=== PATIENT | female | born 1960 | race Caucasian/White ===

== ENCOUNTER 2018-07-26 14:03 | Observation (INO) | payer OTHER, SELFPAY ==
[2018-07-26] VITALS (11 sets, daily range): BP systolic 92–134; BP diastolic 58–84; PULSE 66–95; RESP 12–19; TEMP 36.4–36.9; O2SAT 92–99; BMI 31.1; BMI 31.0
--- NOTE | 2018-07-26 15:08 | EKG12_ITS ---
Test Reason : CP Blood Pressure : / mmHG Vent. Rate : 080 BPM Atrial Rate : 080 BPM P-R Int : 120 ms QRS Dur : 080 ms QT Int : 356 ms P-R-T Axes : 042 023 027 degrees QTc Int : 410 ms Normal sinus rhythm with sinus arrhythmia Low voltage QRS (Limb Leads) Confirmed by WALT BANEGAS, EMILIANA ([id number]), assistant film editor GAGANDEEP RENTERIA ([id number]) on 07/29/2018 9:06:51 AM Referred By: Rickey Macario Confirmed By:EMILIANA GODOY MD
--- NOTE | 2018-07-26 15:08 | RAD_ITS ---
STUDY: X-RAY CHEST REASON FOR EXAM: Female, 58 years old. Mid chest pain. TECHNIQUE: PA and lateral views of the chest. COMPARISON: Comparison is made with prior examination dated November 01, 2016. FINDINGS: EKG electrodes are seen. Hyperinflation. No acute abnormality is seen. There is no demonstrated pleural abnormality. Normal size heart. Normal mediastinum and chris. Normal visualized pulmonary arteries. There is atherosclerotic tortuosity of the aortic arch and descending thoracic aorta. There are diffuse degenerative changes of the visualized thoracic spine. Normal visualized ribs, clavicles, and shoulders. There is no demonstrated abnormality of the visualized soft tissue structures of the upper abdomen. RAD/Chest PA and Lateral IMPRESSION: No acute abnormalities seen. Electronically Signed: Keny Branch, at 15:55 EDT , Service support ,
--- NOTE | 2018-07-26 15:10 | ED.VISSUMM ---
- ER Visit Summary Date of Service: 07/26/18 Chief Complaint: Chest pain History of Present Illness: The patient is a 58 F who presents for chest tightness and shortness of breath. Patient states yesterday she began feeling a scratchy feeling in her throat. Since this morning she has been feeling short of breath, worse with exertion, and now has chest tightness. Chest tightness is in the lower substernal/epigastric region with radiation to the back. No radiation to the sides of the chest, arms, abdomen or neck. Patient states her neck feels full with a mild sore throat in the lower neck. Patient has associated cough. She states she gets frequent bronchitis. She flew from the [place] in April and states she got sick with bronchitis afterward. Patient denies history of coronary artery disease, diabetes, hypertension, hypercholesterolemia, asthma, COPD, history of venous thromboembolism, or any exogenous hormone use. She has a history of kidney cancer and only has one remaining kidney. Patient is a smoker. Physical Examination: Vital signs: afebrile, hemodynamically stable, no hypoxia on room air General: well nourished, well developed, in no distress Skin: warm, dry, no rash, no pallor HEENT: normocephalic and atraumatic; PERRL, EOMI, moist mucous membranes Cardiovascular: regular rate and rhythm without murmurs, no peripheral edema, 2+ pulses all distal extremities Respiratory: No increased work of breathing, lungs are clear to auscultation bilaterally, mildly diminished globally Abdominal: Abdomen is soft, nontender with normoactive bowel sounds, no guarding or rebound, no masses MSK: Moves all extremities, no deformities, normal strength, no calf tenderness or asymmetry Neuro: Awake and alert, oriented ?4. No facial droop, sensation and motor function intact and symmetric Test Results: Abnormal Lab Results 07/26/18 07/26/18 07/26/18 14:20 14:20 14:20 WBC 10.6 RBC 4.81 Hgb 15.0 Hct 43.4 MCV 90.2 MCH 31.2 MCHC 34.6 RDW 12.9 RDW Differential 42.3 Plt Count 255 MPV 10.2 Immature Gran % (Auto) 0.200 Neut % (Auto) 64.8 Lymph % (Auto) 27.1 [place] % (Auto) 5.7 Eos % (Auto) 1.5 Baso % (Auto) 0.7 Absolute Neuts (auto) 6.9 Absolute Lymphs (auto) 2.86 Total Counted Not Reportable PT 13.2 INR 1.0 APTT 29.7 Sodium 140 Potassium 3.8 Chloride 109 H Carbon Dioxide 28.0 Anion Gap 3 L BUN 24 H Creatinine 1.00 Estim Creat Clear Calc 47.91 Est GFR (MDRD) Af Amer 73 Est GFR (MDRD) Non-Af 60 BUN/Creatinine Ratio 24.0 H Glucose 91 Calcium 8.5 Total Bilirubin 0.30 AST 16 ALT 22 Alkaline Phosphatase 81 Troponin I < 0.015 B-Natriuretic Peptide Total Protein 7.1 Albumin 3.2 Globulin 3.9 Albumin/Globulin Ratio 0.8 L Lipase 195 TSH 0.46 07/26/18 14:20 WBC RBC Hgb Hct MCV MCH MCHC RDW RDW Differential Plt Count MPV Immature Gran % (Auto) Neut % (Auto) Lymph % (Auto) [place] % (Auto) Eos % (Auto) Baso % (Auto) Absolute Neuts (auto) Absolute Lymphs (auto) Total Counted PT INR APTT Sodium Potassium Chloride Carbon Dioxide Anion Gap BUN Creatinine Estim Creat Clear Calc Est GFR (MDRD) Af Amer Est GFR (MDRD) Non-Af BUN/Creatinine Ratio Glucose Calcium Total Bilirubin AST ALT Alkaline Phosphatase Troponin I B-Natriuretic Peptide 14.6 Total Protein Albumin Globulin Albumin/Globulin Ratio Lipase TSH Clinical Impression(s) from Imaging Studies Chest X-Ray 07/26/18 15:08 IMPRESSION: No acute abnormalities seen. Electronically Signed: Keny Branch, at 15:55 EDT , Service support , Medications Given Discontinued Medications Albuterol/Ipratropium (Duoneb) 3 ml INHALATION X1 ONE Stop: 07/26/18 15:10 Last Admin: 07/26/18 15:17 Dose: 3 ml Aspirin (Aspirin, Baby) 324 mg PO X1 STA Stop: 07/26/18 15:09 Last Admin: 07/26/18 15:29 Dose: 324 mg Sodium Chloride () 1,000 mls @ 999 mls/hr IV .Q1H1M ONE Stop: 07/26/18 17:11 Last Admin: 07/26/18 17:01 Dose: 999 mls/hr Nitroglycerin (Nitrostat) 0.4 mg SUBLINGUAL X1 ONE Stop: 07/26/18 16:08 Last Admin: 07/26/18 17:09 Dose: 0.4 mg Emergency Department Course and Treatment: Patient presents for shortness of breath, worse on exertion, and chest tightness that started today. Chest pain work-up was initiated. Patient was given aspirin. She had no change in her chest tightness with one nitro. Her blood pressure was borderline low and thus no further nitro was given. Patient had no wheezing or adventitious sounds noted on exam, but did have mildly diminished lungs throughout, that she was given a DuoNeb. She had no change in her complaints afterwards. An EKG showed a sinus rhythm with no ischemic changes. Troponin negative. No leukocytosis or significant anemia. No electrolyte derangements. BNP was within normal limits. Thyroid function normal. Chest x-ray showed mild hyperinflation but no infiltrates or pulmonary edema. Patient has never had a cardiac work-up before, and because of her chest tightness and shortness of breath, she will be admitted to observation status for further chest pain work-up. Treatment Plan: [] Disposition: [] Impression: Chest tightness, shortness of breath This note was generated with [employer] dictation software. It may contain incorrect words, spelling, and punctuation that were not noted in review of the chart prior to signing ED Disposition - Plan for ED Patient: Referrals: Care Physician,No Primary [Primary Care Provider] -
[2018-07-26] MEDS: Ipratropium/Albuterol Sulfate 3 ML AMPUL.NEB INHALATION (15:17)
[2018-07-26] MEDS: Aspirin 81 MG TAB.CHEW 324 MG PO (15:29)
[2018-07-26 15:32] LABS: Prothrombin Time (Protime)PT. 13.2 SECONDS (11.7-14.9)
[2018-07-26 15:33] LABS: Partial Thromboplast Time 29.7 Seconds (24.1-36.2)
[2018-07-26 15:47] LABS: ALB/GLOB Ratio 0.8 RATIO (0.9-2.4); AST(SGOT) 16 U/L (15-37); Alanine Aminotransfer ALT/SGPT 22 U/L (13-56); Albumin, Serum 3.2 g/dL (3.2-5.0); Alkaline Phosphatase 81 U/L (45-117); Anion Gap 3 (5-15); BUN 24 mg/dL (7-18); Calcium,Total 8.5 mg/dL (8.5-10.1); Chloride 109 mmol/L (98-107); EST Glomerular Filtration Rate 60 mL/min (>60); Est Glom Filt Rate - Afr Amer 73 mL/min (>60); Estimated Creatinine Clearance 47.91 ml/min; Globulin 3.9 g/dL (2.2-4.2); Glucose 91 mg/dL (74-106); Lipase 195 U/L (73-393); Potassium 3.8 mmol/L (3.5-5.1); Protein, Total 7.1 g/dL (6.4-8.2); Sodium Level 140 mmol/L (136-145); Thyroid Stim Hormone (TSH) 0.46 uIU/mL (0.358-3.74)
[2018-07-26 16:00] LABS: Absolute Lymphocyte Count 2.86 X10^3/ul (0.83-4.51); Absolute Neutrophil Count 6.9 X10^3/uL (2.0-7.7); Basophil# 0.07 X10^3/uL; Basophil% 0.7 % (0-1); Eosinophil# 0.16 X10^3/uL; Eosinophils% 1.5 % (0-5); Hematocrit 43.4 % (37-47); Lymphocyte # 2.86 X10^3/ul (4.0); Lymphocyte % 27.1 % (19-41); Mean Corp Hgb Conc 34.6 g/gl (32-36); Mean Corpuscular Hgb 31.2 pg (27.0-32.0); Mean Corpuscular Volume 90.2 fL (81-99); Mean Platelet Vol. 10.2 fl (6.2-12.0); Monocyte% 5.7 % (0-10); Neutrophil # 6.86 X10^3/uL (2.7-7.7); Neutrophil % 64.8 % (47-70); Platelet Count 255 K/mm3 (150-450); RBC Distribution Width CV 12.9 % (11.6-14.6); RBC Distribution Width SD 42.3 fl (35.1-43.9); Red Blood Count 4.81 M/mm3 (4.2-5.4); White Blood Count 10.6 K/mm3 (4.4-11.0)
[2018-07-26 16:01] LABS: POSITIVE COUNT NO; POSITIVE DIFFERENTIAL NO; POSITIVE MORPHOLOGY NO
[2018-07-26 16:53] LABS: BNP,B-Type NATRIURETIC PEPTIDE 14.6 pg/mL (0-100)
[2018-07-26] MEDS: 0.9% Normal Saline 1,000 ML 999 ML IV (17:01)
--- NOTE | 2018-07-26 17:05 | ED.RN ---
ASKED DR. WILHELM IF SHE STILL WOULD LIKE THE NITRO GIVEN WITH PT'S BP 100/72. PER DR. WILHELM, OKAY TO GIVE.
--- NOTE | 2018-07-26 17:52 | NURSING ---
DR MAYO WILHELM
--- NOTE | 2018-07-26 17:57 | NURSING ---
102 MAYO OBS CP, SOB
[2018-07-26] MEDS: 0.9% Normal Saline 1,000 ML 75 ML IV (18:28)
[2018-07-26 19:03] LABS: Cholesterol 216 mg/dL (200); High Density Lipoprotein 49 mg/dL; Triglycerides 198 mg/dL; Very Low Density Lipoprotein 40 mg/dL (5-40)
--- NOTE | 2018-07-26 19:04 | PCM.HP.STD ---
Problem List (1) Chest pain Status: Acute (2) Tobacco abuse Status: Chronic (3) GERD (gastroesophageal reflux disease) Status: Chronic History of Present Illness Date of Admission: 07/26/18 Chief Complaint: Chest pain. The patient is a 58 year old F with past medical history as mentioned above presented to the emergency room because of chest pain. Her symptoms started today morning around 10 AM with chest pain, retrosternal chest pain, started when she was doing laundry, described as chest tightness, associated with shortness of breath and dizziness and without aggravating factors. She mentioned that yesterday, she had a choking episode when she was singing and she has been having dry hacking cough since then. She denied syncope or presyncope. She denied sweating, nausea or vomiting. She mentioned that her father had heart attack when he was in his mid 40s. In the emergency department, her vital signs were stable. Her routine blood work was unremarkable. LFT and lipase were normal. Her EKG revealed normal sinus rhythm without evidence of acute ischemic changes. First troponin was negative. Chest x-ray showed no acute findings. She is being admitted for chest pain for evaluation. Past Medical History Past Medical History (Chronic Problems): Chronic Problems Tobacco abuse (Chronic) GERD (gastroesophageal reflux disease) (Chronic) Allergies No Known Allergies Allergy (Verified 07/26/18 14:04) Home Medications: Ambulatory Orders Medication Instructions Recorded Albuterol Sulfate [Ventolin Hfa] 2 puff INHALATION Q4H PRN PRN 07/26/18 Benzonatate 100 mg PO TID PRN PRN 07/26/18 Surgical History: appendectomy, cholecystectomy, - - Left nephrectomy for renal cell cancer. 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 Paternal History Items: Cancer - Colon cancer., Heart Disease Review of Systems Constitutional: Denies: Anorexia, Chills, Fever, Weakness Eyes: Denies: Blurred vision, Double vision, Drainage, Redness HEENT: Denies: Difficulty Hearing, Ear Pain, Eye Pain, Nasal Congestion, Sore Throat Cardiovascular: Reports: Chest Pain, Chest Tightness, Light Headedness. Denies: Heaviness, Orthopnea, Palpitations, Paroxysmal Noc. Dyspnea, Syncope Respiratory: Reports: Cough, Shortness of Breath. Denies: Pleuritic Pain, Sputum production, Wheezing Gastrointestinal: Denies: Abdominal Pain, Constipation, Diarrhea, Nausea, Vomiting Genitourinary: Denies: Dysuria, Frequency, Hematuria Musculoskeletal: Denies: Arm Pain, Back Pain, Foot Pain Skin: Denies: Dryness, Rash Neurological: Denies: Balance problems, Double vision, Change in Speech, Slurred speech, Confusion, Headaches, Incoordination, Numbness Psychiatric: Denies: Anxiety, Depression Endocrine: Denies: Change in Body Habitus, Polydipsia VTE Information - Inpt Only VTE Present on Admission: No VTE Mechan Device Prophylaxis: None VTE Pharm Prophylaxis ordered?: No Patient Problems: Active and Suspected Problems Chest pain (Acute) - Physical Exam General: Alert, Oriented x3, Cooperative, No apparent distress HEENT: Atraumatic, PERRLA, EOMI Oral: Moist Mucosa, No Gingival or Mucosal Lesions/ Ulcerations Neck: Supple, No JVD, Negative Carotid Bruits, Trachea Midline, Thyroid Normal Size and Texture Lungs: Clear to auscultation, No rhonchi, No wheeze, No rales, Diminished Cardiovascular: Regular rate, Regular Rhythm, Normal S2, No murmurs, PMI Normal Abdomen: Bowel Sounds Present, Soft, Non Tender, Non-Distended, No Hepato-splenomegaly Extremities: No clubbing, No cyanosis, No edema Skin: No rashes, No breakdown Lymphatic: No Cervical, Supraclavicular, or Inguinal Adenopathy Neurological: Cranial nerves II-XII grossly intact, Motor Exam 5/5 strength throughout Psych/Mental Status: Normal Affect, Appropriate, Alert and oriented to time, place, person, mood and affect Vital Signs Temp Pulse Resp BP Pulse Ox 98.5 F 66 16 95/58 L 96 07/26/18 18:21 07/26/18 18:21 07/26/18 18:21 07/26/18 18:21 07/26/18 18:21 Oxygen Flow Rate (L/min) 2 Oxygen Delivery Method Room Air Weight: 169 lb 12.095 oz Body Mass Index (BMI) 31.0 Laboratory Tests Past 24 Hrs 07/26/18 07/26/18 07/26/18 14:20 14:20 14:20 WBC 10.6 RBC 4.81 Hgb 15.0 Hct 43.4 MCV 90.2 MCH 31.2 MCHC 34.6 RDW 12.9 RDW Differential 42.3 Plt Count 255 MPV 10.2 Immature Gran % (Auto) 0.200 Neut % (Auto) 64.8 Lymph % (Auto) 27.1 [place] % (Auto) 5.7 Eos % (Auto) 1.5 Baso % (Auto) 0.7 Absolute Neuts (auto) 6.9 Absolute Lymphs (auto) 2.86 Total Counted Not Reportable PT 13.2 INR 1.0 APTT 29.7 Sodium 140 Potassium 3.8 Chloride 109 H Carbon Dioxide 28.0 Anion Gap 3 L BUN 24 H Creatinine 1.00 Estim Creat Clear Calc 47.91 Est GFR (MDRD) Af Amer 73 Est GFR (MDRD) Non-Af 60 BUN/Creatinine Ratio 24.0 H Glucose 91 Calcium 8.5 Total Bilirubin 0.30 AST 16 ALT 22 Alkaline Phosphatase 81 Troponin I < 0.015 B-Natriuretic Peptide Total Protein 7.1 Albumin 3.2 Globulin 3.9 Albumin/Globulin Ratio 0.8 L Triglycerides Cholesterol LDL Cholesterol VLDL Cholesterol HDL Cholesterol Lipase 195 TSH 0.46 07/26/18 07/26/18 14:20 18:35 WBC RBC Hgb Hct MCV MCH MCHC RDW RDW Differential Plt Count MPV Immature Gran % (Auto) Neut % (Auto) Lymph % (Auto) [place] % (Auto) Eos % (Auto) Baso % (Auto) Absolute Neuts (auto) Absolute Lymphs (auto) Total Counted PT INR APTT Sodium Potassium Chloride Carbon Dioxide Anion Gap BUN Creatinine Estim Creat Clear Calc Est GFR (MDRD) Af Amer Est GFR (MDRD) Non-Af BUN/Creatinine Ratio Glucose Calcium Total Bilirubin AST ALT Alkaline Phosphatase Troponin I < 0.015 B-Natriuretic Peptide 14.6 Total Protein Albumin Globulin Albumin/Globulin Ratio Triglycerides 198 Cholesterol 216 H LDL Cholesterol 127 VLDL Cholesterol 40 HDL Cholesterol 49 Lipase TSH Clinical Impression(s) from Imaging Studies Chest X-Ray 07/26/18 15:08 IMPRESSION: No acute abnormalities seen. Electronically Signed: Keny Branch, at 15:55 EDT , Service support , Assessment/Plan All Active Problems Chest pain (Acute) This is a 58 years old female patient presented to the emergency room because of chest pain and she is being admitted for evaluation. #1 chest pain/shortness of breath: Risk factors are age, history of smoking and family history of premature CAD. Her father had first heart attack in his mid 40s. Initial EKG showed no acute ischemic changes. First troponin is negative. Chest x-ray without acute findings. Vital signs are stable. Routine blood work was unremarkable. Plan: Admit to PCU for observation, cardiac monitoring, serial enzymes, repeat EKG tomorrow morning, fasting lipid profile, start baby aspirin, Pepcid twice daily, TSH, nuclear stress test tomorrow morning if cardiac enzymes are negative. She may have undiagnosed COPD as she does have chronic cough. Patient may need lung function test as outpatient, will start albuterol nebulizer every 6 hours. #2 history of renal cell cancer: Status post left nephrectomy, stable, kidney function stable. #3 GERD: Start Pepcid twice daily. #4 tobacco abuse: Counseled, NicoDerm patch if requested. #5 DVT prophylaxis: Low risk patient, no prophylaxis indicated. This note was generated with [employer] dictation software. It may contain incorrect words, spelling, and punctuation that were not noted in checking the note before signing. Code Visit OBSV E&M: 24613 Initial observation care L3
--- NOTE | 2018-07-26 19:08 | HP.PCM_ITS ---
Problem List (1) Chest pain Status: Acute (2) Tobacco abuse Status: Chronic (3) GERD (gastroesophageal reflux disease) Status: Chronic History of Present Illness Date of Admission: 07/26/18 Chief Complaint: Chest pain. The patient is a 58 year old F with past medical history as mentioned above presented to the emergency room because of chest pain. Her symptoms started today morning around 10 AM with chest pain, retrosternal chest pain, started when she was doing laundry, described as chest tightness, associated with shortness of breath and dizziness and without aggravating factors. She mentioned that yesterday, she had a choking episode when she was singing and she has been having dry hacking cough since then. She denied syncope or presyncope. She denied sweating, nausea or vomiting. She mentioned that her father had heart attack when he was in his mid 40s. In the emergency department, her vital signs were stable. Her routine blood work was unremarkable. LFT and lipase were normal. Her EKG revealed normal sinus rhythm without evidence of acute ischemic changes. First troponin was negative. Chest x-ray showed no acute findings. She is being admitted for chest pain for evaluation. Past Medical History Past Medical History (Chronic Problems): Chronic Problems Tobacco abuse (Chronic) GERD (gastroesophageal reflux disease) (Chronic) Allergies No Known Allergies Allergy (Verified 07/26/18 14:04) Home Medications: Ambulatory Orders Medication Instructions Recorded Albuterol Sulfate [Ventolin Hfa] 2 puff INHALATION Q4H PRN PRN 07/26/18 Benzonatate 100 mg PO TID PRN PRN 07/26/18 Surgical History: appendectomy, cholecystectomy, - - Left nephrectomy for renal cell cancer. 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 Paternal History Items: Cancer - Colon cancer., Heart Disease Review of Systems Constitutional: Denies: Anorexia, Chills, Fever, Weakness Eyes: Denies: Blurred vision, Double vision, Drainage, Redness HEENT: Denies: Difficulty Hearing, Ear Pain, Eye Pain, Nasal Congestion, Sore Throat Cardiovascular: Reports: Chest Pain, Chest Tightness, Light Headedness. Denies: Heaviness, Orthopnea, Palpitations, Paroxysmal Noc. Dyspnea, Syncope Respiratory: Reports: Cough, Shortness of Breath. Denies: Pleuritic Pain, Sputum production, Wheezing Gastrointestinal: Denies: Abdominal Pain, Constipation, Diarrhea, Nausea, Vomiting Genitourinary: Denies: Dysuria, Frequency, Hematuria Musculoskeletal: Denies: Arm Pain, Back Pain, Foot Pain Skin: Denies: Dryness, Rash Neurological: Denies: Balance problems, Double vision, Change in Speech, Slurred speech, Confusion, Headaches, Incoordination, Numbness Psychiatric: Denies: Anxiety, Depression Endocrine: Denies: Change in Body Habitus, Polydipsia VTE Information - Inpt Only VTE Present on Admission: No VTE Mechan Device Prophylaxis: None VTE Pharm Prophylaxis ordered?: No Patient Problems: Active and Suspected Problems Chest pain (Acute) - Physical Exam General: Alert, Oriented x3, Cooperative, No apparent distress HEENT: Atraumatic, PERRLA, EOMI Oral: Moist Mucosa, No Gingival or Mucosal Lesions/ Ulcerations Neck: Supple, No JVD, Negative Carotid Bruits, Trachea Midline, Thyroid Normal Size and Texture Lungs: Clear to auscultation, No rhonchi, No wheeze, No rales, Diminished Cardiovascular: Regular rate, Regular Rhythm, Normal S2, No murmurs, PMI Normal Abdomen: Bowel Sounds Present, Soft, Non Tender, Non-Distended, No Hepato- splenomegaly Extremities: No clubbing, No cyanosis, No edema Skin: No rashes, No breakdown Lymphatic: No Cervical, Supraclavicular, or Inguinal Adenopathy Neurological: Cranial nerves II-XII grossly intact, Motor Exam 5/5 strength throughout Psych/Mental Status: Normal Affect, Appropriate, Alert and oriented to time, place, person, mood and affect Vital Signs Temp Pulse Resp BP Pulse Ox 98.5 F 66 16 95/58 L 96 07/26/18 18:21 07/26/18 18:21 07/26/18 18:21 07/26/18 18:21 07/26/18 18:21 Oxygen Flow Rate (L/min) 2 Oxygen Delivery Method Room Air Weight: 169 lb 12.095 oz Body Mass Index (BMI) 31.0 Laboratory Tests Past 24 Hrs 07/26/18 07/26/18 07/26/18 14:20 14:20 14:20 WBC 10.6 RBC 4.81 Hgb 15.0 Hct 43.4 MCV 90.2 MCH 31.2 MCHC 34.6 RDW 12.9 RDW Differential 42.3 Plt Count 255 MPV 10.2 Immature Gran % (Auto) 0.200 Neut % (Auto) 64.8 Lymph % (Auto) 27.1 [place] % (Auto) 5.7 Eos % (Auto) 1.5 Baso % (Auto) 0.7 Absolute Neuts (auto) 6.9 Absolute Lymphs (auto) 2.86 Total Counted Not Reportable PT 13.2 INR 1.0 APTT 29.7 Sodium 140 Potassium 3.8 Chloride 109 H Carbon Dioxide 28.0 Anion Gap 3 L BUN 24 H Creatinine 1.00 Estim Creat Clear Calc 47.91 Est GFR (MDRD) Af Amer 73 Est GFR (MDRD) Non-Af 60 BUN/Creatinine Ratio 24.0 H Glucose 91 Calcium 8.5 Total Bilirubin 0.30 AST 16 ALT 22 Alkaline Phosphatase 81 Troponin I < 0.015 B-Natriuretic Peptide Total Protein 7.1 Albumin 3.2 Globulin 3.9 Albumin/Globulin Ratio 0.8 L Triglycerides Cholesterol LDL Cholesterol VLDL Cholesterol HDL Cholesterol Lipase 195 TSH 0.46 07/26/18 07/26/18 14:20 18:35 WBC RBC Hgb Hct MCV MCH MCHC RDW RDW Differential Plt Count MPV Immature Gran % (Auto) Neut % (Auto) Lymph % (Auto) [place] % (Auto) Eos % (Auto) Baso % (Auto) Absolute Neuts (auto) Absolute Lymphs (auto) Total Counted PT INR APTT Sodium Potassium Chloride Carbon Dioxide Anion Gap BUN Creatinine Estim Creat Clear Calc Est GFR (MDRD) Af Amer Est GFR (MDRD) Non-Af BUN/Creatinine Ratio Glucose Calcium Total Bilirubin AST ALT Alkaline Phosphatase Troponin I < 0.015 B-Natriuretic Peptide 14.6 Total Protein Albumin Globulin Albumin/Globulin Ratio Triglycerides 198 Cholesterol 216 H LDL Cholesterol 127 VLDL Cholesterol 40 HDL Cholesterol 49 Lipase TSH Clinical Impression(s) from Imaging Studies Chest X-Ray 07/26/18 15:08 IMPRESSION: No acute abnormalities seen. Electronically Signed: Keny Branch, at 15:55 EDT , Service support , Assessment/Plan All Active Problems Chest pain (Acute) This is a 58 years old female patient presented to the emergency room because of chest pain and she is being admitted for evaluation. #1 chest pain/shortness of breath: Risk factors are age, history of smoking and family history of premature CAD. Her father had first heart attack in his mid 40s. Initial EKG showed no acute ischemic changes. First troponin is negative. Chest x-ray without acute findings. Vital signs are stable. Routine blood work was unremarkable. Plan: Admit to PCU for observation, cardiac monitoring, serial enzymes, repeat EKG tomorrow morning, fasting lipid profile, start baby aspirin, Pepcid twice daily, TSH, nuclear stress test tomorrow morning if cardiac enzymes are negative. She may have undiagnosed COPD as she does have chronic cough. Patient may need lung function test as outpatient, will start al buterol nebulizer every 6 hours. #2 history of renal cell cancer: Status post left nephrectomy, stable, kidney function stable. #3 GERD: Start Pepcid twice daily. #4 tobacco abuse: Counseled, NicoDerm patch if requested. #5 DVT prophylaxis: Low risk patient, no prophylaxis indicated. This note was generated with [employer] dictation software. It may contain incorrect words, spelling, and punctuation that were not noted in checking the note before signing. Code Visit OBSV E&M: 81530 Initial observation care L3
[2018-07-26] MEDS: Famotidine 20 MG Tablet PO (21:35)
[2018-07-27 03:46] VITALS: BP 97/57; PULSE 73; RESP 16; TEMP 36.7; O2SAT 96
[2018-07-27 03:53] VITALS: PULSE 64
[2018-07-27 05:40] LABS: Hematocrit 42.6 % (37-47); Mean Corp Hgb Conc 32.9 g/gl (32-36); Mean Corpuscular Hgb 29.9 pg (27.0-32.0); Mean Corpuscular Volume 90.8 fL (81-99); Mean Platelet Vol. 9.8 fl (6.2-12.0); Platelet Count 218 K/mm3 (150-450); RBC Distribution Width CV 13.4 % (11.6-14.6); Red Blood Count 4.69 M/mm3 (4.2-5.4); White Blood Count 8.9 K/mm3 (4.4-11.0)
[2018-07-27 05:43] LABS: Scan Indicated on CBC? Y/N NO
[2018-07-27 05:44] LABS: International Normalized Ratio 1.1; Partial Thromboplast Time 29.8 Seconds (24.1-36.2); Prothrombin Time (Protime)PT. 13.7 SECONDS (11.7-14.9)
--- NOTE | 2018-07-27 05:55 | EKG12_ITS ---
Test Reason : AM Blood Pressure : / mmHG Vent. Rate : 072 BPM Atrial Rate : 072 BPM P-R Int : 126 ms QRS Dur : 076 ms QT Int : 382 ms P-R-T Axes : 032 060 037 degrees QTc Int : 418 ms Normal sinus rhythm Normal ECG When compared with ECG of 26-JUL-2018 14:12, MANUAL COMPARISON REQUIRED, DATA IS UNCONFIRMED Confirmed by HONG BARNHART ([id number]), field map editor TUSHAR AWAN ([id number]) on 08/02/2018 2:25:28 PM Referred By: Rickey Macario Confirmed By:JELENA BARNHART
[2018-07-27 05:59] LABS: Anion Gap 4 (5-15); BUN 19 mg/dL (7-18); BUN/Creat Ratio 23.1 RATIO (10-20); Calcium,Total 7.9 mg/dL (8.5-10.1); Chloride 117 mmol/L (98-107); Creatinine, Serum 0.82 mg/dL (0.55-1.02); EST Glomerular Filtration Rate 76 mL/min (>60); Est Glom Filt Rate - Afr Amer 92 mL/min (>60); Estimated Creatinine Clearance 58.42 ml/min; Glucose 100 mg/dL (74-106); Potassium 4.1 mmol/L (3.5-5.1); Sodium Level 146 mmol/L (136-145)
--- NOTE | 2018-07-27 06:55 | NURSING ---
PT TAKEN T STRESS TEST
[2018-07-27 08:25] VITALS: BP 106/64; PULSE 71; RESP 14; TEMP 36.4; O2SAT 97
[2018-07-27] MEDS: Famotidine 20 MG Tablet PO (08:28)
--- NOTE | 2018-07-27 08:36 | STRESSREP_ITS ---
Stress Test Report Date: 07-27-18 Procedure: Exercise tolerance test/imaging study Indications: Chest pain; shortness of breath/dyspnea; dizziness Consent: Per the patient Procedure: The patient exercised on a Patel protocol for 8 minutes and 30 seconds completing Stage II and 2 minutes and 30 seconds of Stage III achieving a peak heart rate of 134 bpm (83 % predicted maximal heart rate) with a peak blood pressure 118/60 mmHg and a peak MET capacity of 10 METs. The baseline ECG demonstrated normal sinus rhythm. The peak exercise ECG demonstrated no obvious ECG changes. There were no cardiac dysrhythmias pretest, during exercise, or recovery. The functional capacity was considered good. There was chest pain pretest, during exercise, and recovery. The examination was discontinued secondary to leg discomfort. Impression: 1. Technically adequate (percent predicted maximal heart rate greater than 85%) exercise tolerance test 2. Peak exercise ECG with no obvious ECG changes 3. There were no cardiac dysrhythmias pretest, during exercise, or recovery 4. Nuclear images pending Myocardial perfusion imaging study: Technique: The patient was injected with 11.9 mCi of technetium 99m Cardiolite and subsequently rest SPECT Cardiolite nuclear imaging was obtained in the horizontal long, vertical long, and short axis views. The patient exercised on a Patel protocol for 8 minutes and 30 seconds completing Stage II and 2 minutes and 30 seconds of Stage III achieving a peak heart rate of 134 bpm (83 % predicted maximal heart rate) with a peak blood pressure 118/60 mmHg and a peak MET capacity of 10 METs. The patient was injected with 33.3 mCi of technetium 99m Cardiolite and subsequently stress SPECT Cardiolite nuclear imaging was obtained in the horizontal long, vertical long, and short axis views. A gated Cardiolite study at peak stress was obtained. Interpretation: Rest and stress SPECT Cardiolite nuclear imaging status post realignment, normalization, and attenuation correction, demonstrates the appearance of relative uniform tracer uptake and myocardial perfusion appearing within normal limits. There is end systolic thickening and brightening. The gated Cardiolite study demonstrates myocardial thickening and inward wall motion. The reported LVEF is 74 %. Impression: 1. Rest and stress SPECT Cardiolite nuclear imaging demonstrate relative uniform tracer uptake and myocardial perfusion appearing within normal limits. 2. The gated Cardiolite study reports an LVEF of 74 %. This note was generated with [employer] software. It may contain incorrect words, spelling, and punctuation that were not noted in checking the note before signing.
--- NOTE | 2018-07-27 10:18 | DCINST_ITS ---
- Discharge Diagnoses Current Active Problems: Current Active and Chronic Problems Chest pain (Acute) Tobacco abuse (Chronic) You will use the following diet at home:: No restrictions Discharge Activity: Return to Normal Activity Call your doctor if you observe: Shortness of breath, Dizziness, Fainting spells, Chest pain Allergies/Adverse Reactions: Allergies No Known Allergies Allergy (Verified 07/26/18 14:04) Medications to take at Discharge Albuterol Sulfate [Ventolin Hfa] 2 puff INHALATION Q4H PRN PRN 07/26/18 Benzonatate 100 mg PO TID PRN PRN 07/26/18 Primary Care Physician: Care Physician,No Primary [Primary Care Provider] - Please follow up with your Primary Care Physician in: 1 Week Test Results: Test results from this visit will be discussed in further detail at your follow- up appointment, if applicable. Proposed Discharge Date: 07/27/18
--- NOTE | 2018-07-27 10:22 | DS.PCM_ITS ---
<Natalie Jean Baptiste - Last Filed: 07/27/18 10:27> Discharge Date and Diagnosis Date of Admission: 07/26/18 Date of Discharge: 07/27/18 - Primary Discharge Diagnosis Active and Suspected Problems 1. Chest pain, ACS ruled out 2. Presumed Viral URI with bronchospasm 3. History of renal cell carcinoma status post nephrectomy 4. GERD 5. Tobacco dependence - Secondary Discharge Diagnosis Chronic Problems Tobacco abuse (Chronic) GERD (gastroesophageal reflux disease) (Chronic) Hospital Course and Treatment Imaging Results: Diagnostic Data Chest X-Ray 07/26/18 15:08 IMPRESSION: No acute abnormalities seen. Electronically Signed: Keny Paradisehazelmelonie, at 15:55 EDT , Service support , Operations: None Procedures: Stress test Summary of Care Provided: The patient is a 58 year old F admitted 07/26/2017 due to chest pain. 1. Chest pain, ACS ruled out-troponin negative. EKG without ST-T changes. Patient underwent nuclear stress test which was negative for ischemia. Follow- up with primary care physician in 1 week. Lipid panel mildly elevated. Recommend diet modification and repeat lipid panel by primary care provider. 2. Presumed Viral URI with bronchospasm-patient with recent sore throat followed by cough. Recommended if symptoms continue for 7 to 10 days, follow-up with primary care provider. 3. History of renal cell carcinoma status post nephrectomy 4. GERD-if recurrent symptoms, recommend addition of PPI. 5. Tobacco dependence-encourage smoking cessation. General: Alert, Oriented x3, Cooperative, No apparent distress HEENT: Atraumatic, PERRLA, EOMI Oral: Moist Mucosa, No Gingival or Mucosal Lesions/ Ulcerations Neck: Supple, No JVD, Negative Carotid Bruits, Trachea Midline, Lungs: Clear to auscultation, Diminished Cardiovascular: Regular rate, Regular Rhythm, Normal S2, No murmurs Abdomen: Bowel Sounds Present, Soft, Non Tender, Non-Distended, No Hepato- splenomegaly Extremities: No clubbing, No cyanosis, No edema Skin: No rashes, No breakdown Lymphatic: No Cervical, Supraclavicular, or Inguinal Adenopathy Neurological: Cranial nerves II-XII grossly intact, Motor Exam 5/5 strength throughout Psych/Mental Status: Normal Affect, Appropriate Patient seen and examined prior to discharge. Physical assessment as noted above. Patient is stable for discharge with follow up recommendations as noted above. This patient was seen by MARILYN Wynn under the supervision of Dr. Fernández. - Physical Exam Vital Signs Temp Pulse Resp BP Pulse Ox 97.6 F L 71 14 106/64 97 07/27/18 08:25 07/27/18 08:25 07/27/18 08:25 07/27/18 08:25 07/27/18 08:25 Oxygen Flow Rate (L/min) 2 Oxygen Delivery Method Room Air Weight: 169 lb 12.095 oz Body Mass Index (BMI) 31.0 Intake and Output for Last 24 Hours 07/25/18 07/26/18 07/27/18 23:59 23:59 23:59 Intake Total 1232 / 1232 Balance 1232 / 1232 Laboratory Tests Past 24 Hrs 07/26/18 07/26/18 07/26/18 14:20 14:20 14:20 WBC 10.6 RBC 4.81 Hgb 15.0 Hct 43.4 MCV 90.2 MCH 31.2 MCHC 34.6 RDW 12.9 RDW Differential 42.3 Plt Count 255 MPV 10.2 Immature Gran % (Auto) 0.200 Neut % (Auto) 64.8 Lymph % (Auto) 27.1 [place] % (Auto) 5.7 Eos % (Auto) 1.5 Baso % (Auto) 0.7 Absolute Neuts (auto) 6.9 Absolute Lymphs (auto) 2.86 Total Counted Not Reportable PT 13.2 INR 1.0 APTT 29.7 Sodium 140 Potassium 3.8 Chloride 109 H Carbon Dioxide 28.0 Anion Gap 3 L BUN 24 H Creatinine 1.00 Estim Creat Clear Calc 47.91 Est GFR (MDRD) Af Amer 73 Est GFR (MDRD) Non-Af 60 BUN/Creatinine Ratio 24.0 H Glucose 91 Calcium 8.5 Total Bilirubin 0.30 AST 16 ALT 22 Alkaline Phosphatase 81 Troponin I < 0.015 B-Natriuretic Peptide Total Protein 7.1 Albumin 3.2 Globulin 3.9 Albumin/Globulin Ratio 0.8 L Triglycerides Cholesterol LDL Cholesterol VLDL Cholesterol HDL Cholesterol Lipase 195 TSH 0.46 07/26/18 07/26/18 07/26/18 14:20 18:35 21:10 WBC RBC Hgb Hct MCV MCH MCHC RDW RDW Differential Plt Count MPV Immature Gran % (Auto) Neut % (Auto) Lymph % (Auto) [place] % (Auto) Eos % (Auto) Baso % (Auto) Absolute Neuts (auto) Absolute Lymphs (auto) Total Counted PT INR APTT Sodium Potassium Chloride Carbon Dioxide Anion Gap BUN Creatinine Estim Creat Clear Calc Est GFR (MDRD) Af Amer Est GFR (MDRD) Non-Af BUN/Creatinine Ratio Glucose Calcium Total Bilirubin AST ALT Alkaline Phosphatase Troponin I < 0.015 < 0.015 B-Natriuretic Peptide 14.6 Total Protein Albumin Globulin Albumin/Globulin Ratio Triglycerides 198 Cholesterol 216 H LDL Cholesterol 127 VLDL Cholesterol 40 HDL Cholesterol 49 Lipase TSH 07/27/18 07/27/18 07/27/18 05:15 05:15 05:15 WBC 8.9 RBC 4.69 Hgb 14.0 Hct 42.6 MCV 90.8 MCH 29.9 MCHC 32.9 RDW 13.4 RDW Differential 44.0 H Plt Count 218 MPV 9.8 Immature Gran % (Auto) Neut % (Auto) Lymph % (Auto) [place] % (Auto) Eos % (Auto) Baso % (Auto) Absolute Neuts (auto) Absolute Lymphs (auto) Total Counted PT 13.7 INR 1.1 APTT 29.8 Sodium 146 H Potassium 4.1 Chloride 117 H Carbon Dioxide 25.0 Anion Gap 4 L BUN 19 H Creatinine 0.82 Estim Creat Clear Calc 58.42 Est GFR (MDRD) Af Amer 92 Est GFR (MDRD) Non-Af 76 BUN/Creatinine Ratio 23.1 H Glucose 100 Calcium 7.9 L Total Bilirubin AST ALT Alkaline Phosphatase Troponin I B-Natriuretic Peptide Total Protein Albumin Globulin Albumin/Globulin Ratio Triglycerides Cholesterol LDL Cholesterol VLDL Cholesterol HDL Cholesterol Lipase TSH Discharge Diet: Low fat/ Low Cholesterol Discharge Activity: Return to Normal Activity Call your doctor if you observe: Shortness of breath, Dizziness, Fainting spells, Chest pain Home Medications: Medications to take at Discharge Albuterol Sulfate [Ventolin Hfa] 2 puff INHALATION Q4H PRN PRN 07/26/18 Benzonatate 100 mg PO TID PRN PRN 07/26/18 Primary Care Physician: Care Physician,No Primary [Primary Care Provider] - Please follow up with your Primary Care Physician in: 1 Week Disposition: Home Minutes spent on discharge:: 35 Patient Condition:: Stable Medical Necessity - Tobacco Use Smoking Status: Current every day smoker Meaningful Use Info Meaningful Use Diagnoses (Choose all that apply): None applicable <Wyatt Fernández - Last Filed: 07/27/18 13:27> Discharge Date and Diagnosis - Secondary Discharge Diagnosis Chronic Problems Tobacco abuse (Chronic) GERD (gastroesophageal reflux disease) (Chronic) Hospital Course and Treatment Imaging Results: 07/27/18 05:55 Nuclear Stress Test - [place] [NM] Routine Operations: None Procedures: Stress test Summary of Care Provided: Patient seen and examined independently. Data reviewed. I agree with the above note by the nurse practitioner. The patient is a 58 year old F presents with chest pain. Patient underwent a work-up, including a stress test which which was negative for cardiac etiology. This feeling the chest pain may been more musculoskeletal in etiology and this was relayed to the patient and reassurance was provided. Patient discharged home in stable condition. [] - Physical Exam General: Alert, No apparent distress HEENT: Atraumatic Oral: Moist Mucosa, No Gingival or Mucosal Lesions/ Ulcerations Neck: No Nodes, Thyroid Normal Size and Texture Lungs: Clear to auscultation, Normal air movement, No rhonchi, No wheeze Vital Signs Temp Pulse Resp BP Pulse Ox 36.4 C L 71 14 106/64 97 07/27/18 08:25 07/27/18 08:25 07/27/18 08:25 07/27/18 08:25 07/27/18 08:25 Oxygen Flow Rate (L/min) 2 Oxygen Delivery Method Room Air Weight: 77 kg Body Mass Index (BMI) 31.0 Intake and Output for Last 24 Hours 07/25/18 07/26/18 07/27/18 23:59 23:59 23:59 Intake Total 1232 / 1232 Balance 1232 / 1232 Laboratory Tests Past 24 Hrs 07/26/18 07/26/18 07/26/18 14:20 14:20 14:20 WBC 10.6 RBC 4.81 Hgb 15.0 Hct 43.4 MCV 90.2 MCH 31.2 MCHC 34.6 RDW 12.9 RDW Differential 42.3 Plt Count 255 MPV 10.2 Immature Gran % (Auto) 0.200 Neut % (Auto) 64.8 Lymph % (Auto) 27.1 [place] % (Auto) 5.7 Eos % (Auto) 1.5 Baso % (Auto) 0.7 Absolute Neuts (auto) 6.9 Absolute Lymphs (auto) 2.86 Total Counted Not Reportable PT 13.2 INR 1.0 APTT 29.7 Sodium 140 Potassium 3.8 Chloride 109 H Carbon Dioxide 28.0 Anion Gap 3 L BUN 24 H Creatinine 1.00 Estim Creat Clear Calc 47.91 Est GFR (MDRD) Af Amer 73 Est GFR (MDRD) Non-Af 60 BUN/Creatinine Ratio 24.0 H Glucose 91 Calcium 8.5 Total Bilirubin 0.30 AST 16 ALT 22 Alkaline Phosphatase 81 Troponin I < 0.015 B-Natriuretic Peptide Total Protein 7.1 Albumin 3.2 Globulin 3.9 Albumin/Globulin Ratio 0.8 L Triglycerides Cholesterol LDL Cholesterol VLDL Cholesterol HDL Cholesterol Lipase 195 TSH 0.46 07/26/18 07/26/18 07/26/18 14:20 18:35 21:10 WBC RBC Hgb Hct MCV MCH MCHC RDW RDW Differential Plt Count MPV Immature Gran % (Auto) Neut % (Auto) Lymph % (Auto) [place] % (Auto) Eos % (Auto) Baso % (Auto) Absolute Neuts (auto) Absolute Lymphs (auto) Total Counted PT INR APTT Sodium Potassium Chloride Carbon Dioxide Anion Gap BUN Creatinine Estim Creat Clear Calc Est GFR (MDRD) Af Amer Est GFR (MDRD) Non-Af BUN/Creatinine Ratio Glucose Calcium Total Bilirubin AST ALT Alkaline Phosphatase Troponin I < 0.015 < 0.015 B-Natriuretic Peptide 14.6 Total Protein Albumin Globulin Albumin/Globulin Ratio Triglycerides 198 Cholesterol 216 H LDL Cholesterol 127 VLDL Cholesterol 40 HDL Cholesterol 49 Lipase TSH 07/27/18 07/27/18 07/27/18 05:15 05:15 05:15 WBC 8.9 RBC 4.69 Hgb 14.0 Hct 42.6 MCV 90.8 MCH 29.9 MCHC 32.9 RDW 13.4 RDW Differential 44.0 H Plt Count 218 MPV 9.8 Immature Gran % (Auto) Neut % (Auto) Lymph % (Auto) [place] % (Auto) Eos % (Auto) Baso % (Auto) Absolute Neuts (auto) Absolute Lymphs (auto) Total Counted PT 13.7 INR 1.1 APTT 29.8 Sodium 146 H Potassium 4.1 Chloride 117 H Carbon Dioxide 25.0 Anion Gap 4 L BUN 19 H Creatinine 0.82 Estim Creat Clear Calc 58.42 Est GFR (MDRD) Af Amer 92 Est GFR (MDRD) Non-Af 76 BUN/Creatinine Ratio 23.1 H Glucose 100 Calcium 7.9 L Total Bilirubin AST ALT Alkaline Phosphatase Troponin I B-Natriuretic Peptide Total Protein Albumin Globulin Albumin/Globulin Ratio Triglycerides Cholesterol LDL Cholesterol VLDL Cholesterol HDL Cholesterol Lipase TSH Discharge Diet: Low fat/ Low Cholesterol Discharge Activity: Return to Normal Activity Call your doctor if you observe: Shortness of breath, Dizziness, Fainting spells, Chest pain Disposition: Home Patient Condition:: Stable Meaningful Use Info Meaningful Use Diagnoses (Choose all that apply): None applicable Code Visit OBSV E&M: 99609 Observation care discharge
== END 2018-07-27 10:16 | disposition home or self-care (01) ==
LOC: ED 15:19 → PCU 18:08
PROVIDERS: Admitting Provider Hospitalist; Emergency Provider Emergency Medicine; Referring Provider Hospitalist
DX: R07.89 Other chest pain (principal); R06.02 Shortness of breath; Z85.528 Personal history of other malignant neoplasm of kidney; K21.9 Gastro-esophageal reflux disease without esophagitis; F17.200 Nicotine dependence, unspecified, uncomplicated; Z82.49 Family history of ischemic heart disease and other diseases of the circulatory system
CPT/HCPCS: 36415; 71046; 78452; 80048; 80053; 80061; 83690; 83880; 84443; 84484; 85025; 85027; 85610; 85730; 93005; 93017; 94640; 96360; 96361; 99218; 99285; 99406; A9500; J7030; A4216; G0378; J2785

== ENCOUNTER 2019-01-10 13:26 | Emergency (ER) | payer OTHER, SELFPAY ==
[2018-07-26 18:18] VITALS: BMI 31.0
[2019-01-10 13:27] VITALS: BP 122/68; PULSE 61; RESP 18; TEMP 36.4; O2SAT 95; BMI 32.1
--- NOTE | 2019-01-10 13:39 | CT_ITS ---
STUDY: CT ABDOMEN AND PELVIS WITHOUT CONTRAST REASON FOR EXAM: Female, 58 years old. Right flank pain. Prior left nephrectomy due to renal carcinoma. RADIATION DOSAGE (If Supplied By Facility): CTDIvol = ( 13.89 ) mGy, DLP = ( 659.31 ) mGycm TECHNIQUE: Transaxial images were obtained from the dome of the diaphragm to the symphysis pubis without oral contrast, and without intravenous contrast. Sagittal and coronal images were reconstructed. Individualized dose optimization techniques were used for this CT. COMPARISON: Comparison is made with prior study dated December 18, 2013. FINDINGS: Mild degree of increased linear markings at the left lung base with minimal pleural thickening suggestive of scarring. The visualized portions of the heart are within normal limits. Normal liver. There are surgical clips in the gallbladder fossa consistent with a prior cholecystectomy. Normal spleen. Normal pancreas. Normal bilateral adrenal glands. Normal right kidney. The patient is status post left nephrectomy. There is a small hiatal hernia. There is a 2.1 cm x 1.3 cm fatty polypoid abnormality in the second portion of the duodenum. There are multiple colonic diverticula consistent with diverticulosis. The patient is status post appendectomy. There is scattered atherosclerotic calcification of the abdominal aorta, without a demonstrated aneurysm. Normal inferior vena cava. Normal retroperitoneum. Normal urinary bladder. There is a small umbilical hernia containing fat. There are diffuse degenerative changes of the visualized lumbar spine. CT/Abdomen/Pelvis without Cont IMPRESSION: Sigmoid diverticulosis without evidence of acute diverticulitis at this time. The patient is status post left nephrectomy. 2.1 cm x 1.3 cm fatty polypoid abnormality in the second portion of the duodenum. Electronically Signed: Keny Branch, at 14:39 EDT , Service support ,
[2019-01-10 13:49] LABS: Absolute Lymphocyte Count 2.05 X10^3/uL (0.83-4.51); Absolute Neutrophil Count 7.2 X10^3/uL (2.0-7.7); Basophil# 0.08 X10^3/uL; Basophil% 0.8 % (0-1); Eosinophil# 0.16 X10^3/uL; Eosinophils% 1.6 % (0-5); Hematocrit 45.9 % (37-47); Lymphocyte # 2.05 X10^3/ul (4.0); Lymphocyte % 20.7 % (19-41); Mean Corp Hgb Conc 32.7 g/dL (32-36); Mean Corpuscular Hgb 29.8 pg (27.0-32.0); Mean Corpuscular Volume 91.1 fL (81-99); Monocyte# 0.38 X10^3/uL; Monocyte% 3.8 % (0-10); NRBC Flagged by Analyzer 0 % (0-5); Neutrophil # 7.18 X10^3/uL (2.7-7.7); Neutrophil % 72.6 % (47-70); Platelet Count 262 K/mm3 (150-450); RBC Distribution Width CV 13.1 % (11.6-14.6); RBC Distribution Width SD 43.8 fl (35.1-43.9); Red Blood Count 5.04 M/mm3 (4.2-5.4); White Blood Count 9.9 K/mm3 (4.4-11.0)
[2019-01-10] MEDS: Ondansetron 4 MG/2 ML Vial IV (14:03)
[2019-01-10] MEDS: 0.9% Normal Saline 1,000 ML 250 ML IV (14:04)
[2019-01-10] MEDS: Morphine 4 MG/ML Syringe IV (14:04)
[2019-01-10 14:08] LABS: Anion Gap 7 (5-15); BUN 20 mg/dL (7-18); BUN/Creat Ratio 21.3 RATIO (10-20); Calcium,Total 8.9 mg/dL (8.5-10.1); Chloride 107 mmol/L (98-107); Creatinine, Serum 0.94 mg/dL (0.55-1.02); EST Glomerular Filtration Rate 65 mL/min (>60); Est Glom Filt Rate - Afr Amer 78 mL/min (>60); Estimated Creatinine Clearance 50.97 ml/min; Glucose 122 mg/dL (74-106); Potassium 4.1 mmol/L (3.5-5.1); Sodium Level 139 mmol/L (136-145)
--- NOTE | 2019-01-10 14:27 | ED.DCSUM_ITS ---
- ER Visit Summary Date of Service: 01/10/19 Chief Complaint: Right flank pain History of Present Illness: The patient is a 58 F who has right flank and right lower back pain. Started this morning. She states it started in her abdomen and cannot work his way back into the lower back. This pain is worse with movement. She denies any falls or trauma. She has a history of kidney cancer and had her left kidney removed in 2008 and she is concerned about her remaining kidney. She took some pain medicines at home without any relief. She denies any fevers. No history of kidney stones in the past. Physical Examination: Vital signs reviewed. HEENT exam unremarkable. Heart is regular rate and rhythm without murmurs. Lungs are clear to auscultation. Abdomen is soft and nontender. Extremities reveal no edema. Skin exam normal. Neurologic exam normal. Test Results: Laboratory studies are unremarkable except for glucose of 122 and BUN of 20. Urinalysis has no infection or blood. CAT scan of the abdomen and pelvis reveals chronic changes. No bony abnormalities. There are no kidney stones. Emergency Department Course and Treatment: Patient was given morphine and Zofran with no relief so she was given Dilaudid and she feels much better. I am unclear as to why she is having this pain in the right flank. There are no kidney stones. No signs of infection. She denies any injuries to could be musculoskeletal. I will give her [place] for pain at home. She will ice and use heat as well. She will follow-up with her PCP Treatment Plan: [] Disposition: Discharge Impression: Right flank pain This note was generated with [employer] dictation software. It may contain incorrect words, spelling, and punctuation that were not noted in review of the chart prior to signing ED Disposition - Plan for ED Patient: Referrals: Shine Gibson MD [Primary Care Provider] -
[2019-01-10] MEDS: HYDROmorphone 1 MG/ML Syringe IV (14:56)
[2019-01-10 15:05] LABS: Mucous, Urine 0 SEEN /hpf (<or=2+)
[2019-01-10 15:10] LABS: Color, Urine Yellow (Yellow); Glucose, Dipstick Normal (Normal); Ketone-Dipstick 5 mg/dl (Negative); Leukocyte Esterase-Dipstick 25 /ul (Negative); Nitrite-Dipstick Negative (Negative); Occult Blood-Urine 150 /ul (Negative); Protein-Dipstick 100 mg/dl (Negative); Urine Bilirubin Dipstick Negative (Negative); Urine Clarity Sl. Cloudy (Clear); Urine Urobilinogen 1 mg/dl (Normal)
[2019-01-10 15:20] LABS: Red Blood Cells-Urine 5-10 SEEN /hpf (0-5); White Blood Cells 0-5 SEEN /hpf (0-5)
[2019-01-10 15:21] LABS: Amorphous Sediment 1+ URATE; Bacteria RARE /hpf (None Seen); Squamous Epithelial Cells - UA 0-5 SEEN /hpf (5-10)
[2019-01-10 15:37] VITALS: BP 120/63; PULSE 81; RESP 18; O2SAT 97
--- NOTE | 2019-01-10 15:37 | ED.RN ---
THIS NURSE REVIEWED D/C INSTRUCTIONS WITH PT AND VISITOR. PT VERBALIZED UNDERSTANDING OF INSTRUCTIONS. IV D/C. IV CATHETER INTACT. PT TOLERATED WELL. PT DENIES FURTHER NEEDS OR QUESTIONS AT THIS TIME.
== END 2019-01-10 15:38 | disposition home or self-care (01) ==
PROVIDERS: Emergency Provider Emergency Medicine; Family Provider Family Medicine; PCP Family Medicine
DX: R10.9 Unspecified abdominal pain (principal); M54.5 Low back pain; K57.30 Diverticulosis of large intestine without perforation or abscess without bleeding; Z85.528 Personal history of other malignant neoplasm of kidney; Z90.5 Acquired absence of kidney
CPT/HCPCS: 74176; 80048; 81001; 85025; 96361; 96374; 96375; 99283; J7030; A4216; J2405

== ENCOUNTER → 2019-01-18 09:18 | Outpatient (CLI) | payer OTHER, SELFPAY ==
[2019-01-10 13:27] VITALS: BMI 32.1
[2019-01-18 09:21] LABS: Bacteria 0 SEEN /hpf (None Seen); Mucous, Urine 0 SEEN /hpf (<or=2+); Red Blood Cells-Urine 0 SEEN /hpf (0-5); White Blood Cells 0 SEEN /hpf (0-5)
[2019-01-18 10:41] LABS: Absolute Lymphocyte Count 2.79 X10^3/uL (0.83-4.51); Absolute Neutrophil Count 6.5 X10^3/uL (2.0-7.7); Basophil# 0.06 X10^3/uL; Basophil% 0.6 % (0-1); Eosinophil# 0.19 X10^3/uL; Eosinophils% 1.9 % (0-5); Hematocrit 49.3 % (37-47); Hemoglobin 16.4 g/dL (12.0-15.0); Lymphocyte # 2.79 X10^3/ul (4.0); Lymphocyte % 27.8 % (19-41); Mean Corp Hgb Conc 33.3 g/dL (32-36); Mean Corpuscular Hgb 30.1 pg (27.0-32.0); Mean Corpuscular Volume 90.5 fL (81-99); Mean Platelet Vol. 10.6 fl (6.2-12.0); NRBC Flagged by Analyzer 0 % (0-5); Neutrophil # 6.45 X10^3/uL (2.7-7.7); Neutrophil % 64.3 % (47-70); Platelet Count 291 K/mm3 (150-450); RBC Distribution Width CV 13.1 % (11.6-14.6); RBC Distribution Width SD 42.8 fl (35.1-43.9); Red Blood Count 5.45 M/mm3 (4.2-5.4)
[2019-01-18 11:00] LABS: ALB/GLOB Ratio 0.8 RATIO (0.9-2.4); AST(SGOT) 13 U/L (15-37); Alanine Aminotransfer ALT/SGPT 23 U/L (13-56); Albumin, Serum 3.6 g/dL (3.2-5.0); Alkaline Phosphatase 86 U/L (45-117); Anion Gap 7 (5-15); BUN 21 mg/dL (7-18); BUN/Creat Ratio 22.4 RATIO (10-20); Calcium,Total 9.5 mg/dL (8.5-10.1); Chloride 107 mmol/L (98-107); Cholesterol 270 mg/dL (200); Creatinine, Serum 0.94 mg/dL (0.55-1.02); EST Glomerular Filtration Rate 65 mL/min (>60); Est Glom Filt Rate - Afr Amer 78 mL/min (>60); Globulin 4.3 g/dL (2.2-4.2); Glucose 98 mg/dL (74-106); High Density Lipoprotein 53 mg/dL; Potassium 3.8 mmol/L (3.5-5.1); Protein, Total 7.9 g/dL (6.4-8.2); Sodium Level 138 mmol/L (136-145); Triglycerides 216 mg/dL; Very Low Density Lipoprotein 43 mg/dL (5-40)
[2019-01-18 11:12] LABS: Hemoglobin A1c 5.7 % (4.2-6.3)
[2019-01-18 12:52] LABS: Color, Urine Yellow (Yellow); Glucose, Dipstick Normal (Normal); Ketone-Dipstick Negative (Negative); Leukocyte Esterase-Dipstick Negative /ul (Negative); Nitrite-Dipstick Negative (Negative); Occult Blood-Urine 150 /ul (Negative); Protein-Dipstick 100 mg/dl (Negative); Urine Bilirubin Dipstick Negative (Negative); Urine Clarity Sl. Cloudy (Clear); Urine Urobilinogen Normal (Normal)
[2019-01-18 12:59] LABS: Squamous Epithelial Cells - UA 0-5 SEEN /hpf (5-10)
== END ==
PROVIDERS: Family Provider Family Medicine; PCP Family Medicine; Referring Provider Family Medicine; Visit Provider Family Medicine
DX: E78.5 Hyperlipidemia, unspecified (principal); R73.02 Impaired glucose tolerance (oral); Z72.0 Tobacco use
CPT/HCPCS: 36415; 80053; 80061; 81001; 83036; 85025

== ENCOUNTER → 2019-01-28 11:20 | Outpatient (CLI) | payer OTHER, SELFPAY ==
[2019-01-10 13:27] VITALS: BMI 32.1
[2019-01-28 13:03] LABS: Ferritin 181 ng/mL (8-252); Iron 53 ug/dL (50-170); Iron Binding Capacity,Total 274 ug/dL (250-450)
[2019-01-29 13:49] LABS: Transferrin 217 mg/dL (200-370)
== END ==
PROVIDERS: Family Provider Family Medicine; PCP Family Medicine; Visit Provider Family Medicine
DX: D75.1 Secondary polycythemia (principal)
CPT/HCPCS: 36415; 82728; 83540; 83550; 84466

== ENCOUNTER 2019-02-08 05:30 | Day surgery (SDC) | payer OTHER, SELFPAY ==
[2019-02-03 09:01] VITALS: BMI 30.7
--- NOTE | 2019-02-03 09:10 | HP_ITS ---
Intake Vital Signs 02/03/19 Height 5 ft 2.25 in 02/03/19 Weight: 169 lb 7 oz 02/03/19 Body Mass Index (BMI) 30.7 02/03/19 Blood Pressure 129/89 H 02/03/19 Blood Pressure Location Rt brachial 02/03/19 Blood Pressure Position Sitting 02/03/19 Respiratory Rate 20 H 02/03/19 Pulse Rate 96 02/03/19 Pulse Ox 94 02/03/19 Body Mass Index (BMI) 32.1 Intake Visit Reasons: Hiatal Hernia Chief Complaint: GERD/ duodenal mass Hand Coke Drawer Required: No Is patient in pain?: No Allergies No Known Allergies Allergy (Verified 02/03/19 09:02) Medications Albuterol Sulfate [Ventolin Hfa] 2 puff INHALATION Q4H PRN PRN 07/26/18 [History Confirmed 02/03/19] Benzonatate 100 mg PO TID PRN PRN 07/26/18 [History Confirmed 02/03/19] bupropion HCl SR 150 mg tablet,12 hr sustained-release 150 mg PO DAILY 02/03/19 [History Confirmed 02/03/19] dicyclomine 10 mg capsule 10 mg PO BID 02/03/19 [History Confirmed 02/03/19] omeprazole 20 mg capsule,delayed release 20 mg PO DAILY 02/03/19 [History Confirmed 02/03/19] rosuvastatin 10 mg tablet PO #30 tab 02/03/19 [History Confirmed 02/03/19] Is last menstrual period known: No Post menopausal: Yes Patient : No PFSH Medical History (Updated 02/03/19 @ 09:10 by Lee Zuniga MD) Abdominal pain (Acute) Abnormal CT scan, gastrointestinal tract (Acute) Hyperlipidemia (Acute) Diverticulosis (Acute) Gastric ulcer (Acute) Sacroiliitis (Acute) Tobacco abuse (Chronic) GERD (gastroesophageal reflux disease) (Chronic) Surgical History (Updated 02/03/19 @ 09:01 by Surekha Seay) History of colonoscopy (Acute ~2015) History of esophagogastroduodenoscopy (EGD) (Acute ~2008) History of left nephrectomy (Acute) History of tubal ligation (Acute) history of lysis of adhesions (Acute) History of cholecystectomy (Acute) History of appendectomy (Acute) Family History (Updated 02/03/19 @ 09:01 by Surekha Seay) Father Myocardial infarction Heart disease Colon cancer Mother Cancer duodenal Social History (Updated 02/03/19 @ 09:13 by Lee Zuniga MD) Smoking Status: Heavy Smoker (>10/day) HPI HPI HPI: ЕКАТЕРИНА RO, is a 59 F who presents to the office today for HPI HPI Surgical H&P: Yes HPI: ЕКАТЕРИНА RO, is a 59 F who presents to the office today for surgical consultation regarding esophageal reflux disease but abnormal CT scan demonstrating a duodenal mass. The patient is referred to me by Dr. Shine Rodriguez and a written copy of my surgical consult and recommendations will return to him. The patient was having some right hip pain and she went to the emergency room and had a CT scan done. The CT scan suggested diverticulosis of the sigmoid without evidence of diverticulitis. Evidence of a previous left nephrectomy. There was a 2.1 x 1.3 cm fatty polypoid abnormality in the second portions of the duodenum. The patient has a long-term history of reflux. Her symptoms are sore throat. She previously was on omeprazole therapy. She stopped it for 12 months and then became repeatedly symptomatic. She is now back on a proton pump inhibitor. She does smoke a pack per day of tobacco and has done so for many many years. She denies bright red blood per rectum or melena. As a second complaint she notes intermittent bouts of severe abdominal pain. She claims that a previous colonoscopy attempted by Dr. Thomas Lew was unsuccessful secondary to tortuosity. Her most recent colonoscopy that we have record of was performed by Dr. Raymond Deutsch on July 05, 2015. That demonstrated 7 mm polyp in the ascending colon sessile. Pathology suggested focal serrated changes suggesting a sessile serrated polyp. 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 There was no evidence of colitis whatsoever. Previously August 21, 2008 because of a history of peptic ulcer disease she had an upper endoscopy. Findings of acute chronic esophagitis identified. Mild erythema of the duodenum. Otherwise normal. The patient states however that she has had a previous history of H. pylori as well. She has not no evidence of any weight loss. She does have intermittent left- sided abdominal pain and soreness at a remote left nephrectomy incision. She states that I assisted Dr. Aguilar with her left nephrectomy for kidney cancer at least 10 years in the past. She states that she will get pain as if she is constipated then she has to cut down to clear liquids and then the stool will be evacuated. She states that she has tried fiber supplementation in the past and that worsens her condition. When these episodes of pain occur she has to drop back to a liquid diet.. The patient wondered what my opinion regarding these episodes of pain were. She has previously discussed with with Dr. Thomas Lew and with Dr. Raymond Deutsch. This appears to be a chronic condition dating back to her left nephrectomy As of January 10 white blood cell count was 9.9 hemoglobin 15 hematocrit 45.9 platelet count 262,000. BUN [address] Glucose [address]. [facility] [address] [place] [address] Abdomen/Pelvis without Cont MR#: [id number]:[id number] Name: Gwyn RO #:[id number] : 1960F 58 From: Keny Branch MD PCP:Shine Gibson MD Status:REG ER Study:Abdomen/Pelvis without Cont Date of Exam:01/10/19 Exam#[id number] Ordering Dr: Willy Bal MD STUDY: CT ABDOMEN AND PELVIS WITHOUT CONTRAST REASON FOR EXAM: Female, 58 years old. Right flank pain. Prior left nephrectomy due to renal carcinoma. RADIATION DOSAGE (If Supplied By Facility): CTDIvol = ( 13.89 ) mGy, DLP = ( 659.31 ) mGycm TECHNIQUE: Transaxial images were obtained from the dome of the diaphragm to the symphysis pubis without oral contrast, and without intravenous contrast. Sagittal and coronal images were reconstructed. Individualized dose optimization techniques were used for this CT. COMPARISON: Comparison is made with prior study dated December 18, 2013. FINDINGS: Mild degree of increased linear markings at the left lung base with minimal pleural thickening suggestive of scarring. The visualized portions of the heart are within normal limits. Normal liver. There are surgical clips in the gallbladder fossa consistent with a prior cholecystectomy. Normal spleen. Normal pancreas. Normal bilateral adrenal glands. Normal right kidney. The patient is status post left nephrectomy. There is a small hiatal hernia. There is a 2.1 cm x 1.3 cm fatty polypoid abnormality in the second portion of the duodenum. There are multiple colonic diverticula consistent with diverticulosis. The patient is status post appendectomy. There is scattered atherosclerotic calcification of the abdominal aorta, without a demonstrated aneurysm. Normal inferior vena cava. Normal retroperitoneum. Normal urinary bladder. There is a small umbilical hernia containing fat. There are diffuse degenerative changes of the visualized lumbar spine. CT/Abdomen/Pelvis without Cont IMPRESSION: Sigmoid diverticulosis without evidence of acute diverticulitis at this time. The patient is status post left nephrectomy. 2.1 cm x 1.3 cm fatty polypoid abnormality in the second portion of the duodenum. Electronically Signed: Keny Jose Carlos, at 14:39 EDT , Service support , ROS General General: No weight change, appetite, fatigue, colon cancer, breast cancer or weakness HEENT HEENT: No difficulty swallowing, eye injury, eye surgery, swollen glands or hoarseness Endo Endocrine: No thyroid disease, diabetes mellitus, thyroid cancer, Hair loss, heat intolerance or cold intolerance Cardio Cardiovascular: No murmur, pacemaker, heart disease, atrial fibrillation, high blood pressure, heart attack, heart stent, palpitations, shortness of breat with exertion or chest pain Psych Psychiatric: Yes depression; no anxiety or hearing voices Resp Respiratory: No shortness of breath, No sleep apnea, No cough, No COPD, No asthma, No emphysema, No wheezing Gastro Gastrointestinal: No abdominal pain, No nausea or vomiting, No diarrhea, No constipation, No blood in stool, Yes acid reflux, No hemorrhoids, Yes ulcers, No gallbladder problem, No black,tarry stools Keenan Hematologic: No blood thinners, No blood disorders, No bleeding, No anemia, No blood clots Neuro Neurologic: No weakness Exam Const General: cooperative, comfortable, no acute distress Nutritional Appearance: obese Orientation: alert, awake Other: Notably hard of hearing She appears older than stated age Eyes General: appearance normal, both eyes and all related structures Chest Other: Increased anterior posterior diameter Resp Other: Scattered bibasilar dry rales improved with cough Cardio Rate: regular rate Rhythm: regular rhythm Heart Sounds: no murmurs GI Palpation: soft, no hepatosplenomegaly Auscultation: normal bowel sounds Other: Well-healed left flank incision without palpable mass Skin General: no rashes or lesions noted Neuro Cognition: normal cognition Extrem General: no calf tenderness bilaterally Psych Affect: normal affect Assessment & Plan Problems 1. Abnormal CT scan, gastrointestinal tract R93.3 2. Gastroesophageal reflux disease with esophagitis K21.0 3. 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 She has a previous history of H. pylori peptic ulcer disease. She has a family history with a mother who had duodenal cancer/gastric cancer. Secondary finding includes chronic left mid to upper quadrant abdominal pain and change of bowel habits with intermittent constipation. She then will have bouts of diarrhea. She has extensive diverticulosis on her CT but no distinct evidence of diverticulitis. She believes that her symptoms are related to remote nephrectomy on the left. There apparently was some previous discussion regarding consideration for surgical resection. She did previously have a failed colonoscopy because of tortuosity. Her most recent colonoscopy of 2015 was successful however. The patient denies any chronic laxative use but biopsies showed melanosis coli. I proposed for the patient a esophagogastroduodenoscopy with anticipated biopsy or polypectomy if indicated. She is aware of the technique, benefits, risks, alternatives. Very careful inspection of the duodenum will be pursued. I recommended the patient a barium enema. I believe that this will give more information regarding the current positional anatomy and tortuosity of the colon. Then will be able to provide the patient with additional advice regarding any additional medical or surgical recommendations. I very much appreciate the kind opportunity of assisting with her surgical care CC: Dr Shine Zuniga M.D., F.A.C.S. Orders Orders: EGD Today Barium Enema w/Air Contrast Today R10.9, R19.4 Coding Level of Care Code [address] scan, gastrointestinal tract R93.3 Gastroesophageal reflux disease with esophagitis K21.0 ??Esophagitis presence: with esophagitis Left upper quadrant pain R10.12 ??Abdominal location: left upper quadrant 02/03/19 0914 <Electronically signed by Lee aguayo MD> Date _ Lee Zuniga MD I have re-examined the patient. There are no clinical changes since date of exam.
[2019-02-08] VITALS (7 sets, daily range): BP systolic 95–113; BP diastolic 68–74; PULSE 84–98; RESP 16–18; TEMP 36.5–36.6; O2SAT 93–95; BMI 29.9
--- NOTE | 2019-02-08 06:30 | IMM_PTH ---
PATIENT: ЕКАТЕРИНА RO LOC: EN U#:[id number] AGE/SX: 59/F ROOM: RE02/08/[address]: Dr. Lee Znuiga MD : 1960 BED: DIS: 02/08/2019 SPEC #: [id number] RECD: 02/08/19 14:35 STATUS: IRLANDA REYordy #: [id number] FILIBERTO: 02/08/19 06:[address]: Lee Zuniga DEPT: IMMUNOHISTOCHEMISTRY RECD BY: Aundrea Magana ENTERED: 02/08/19 14:38 SP TYPE: IMMUNO OTHR DR: Dr. Shine Gibson MD Tissues: B - Stomach, NOS D - Esophageal mucous membrane Procedures: H Pylori (initial) P53 (initial) PHYSICIAN & INSTITUTION [place] [address] SPECIMEN INFORMATION: Tissue Source: B - Antrum biopsy, D - GE junction biopsy Clinical Info: Abnormal CT, GERD, LUQ pain Specimen Number: [id number] B & D CPT code: 21746 x2 METHODOLOGY: Deparaffinized sections of prefer/formalin-fixed tissue or PAP/DQ stained slides are incubated with monoclonal/polyclonal antibodies/oligonucleotide probes. Localization is made via biotin free immunoperoxidase method. Appropriate controls are performed and reacted as expected. Results on target cell population are indicated in the following table: RESULTS: ANTIBODY / CLONE RESULT Block B H Pylori (polyclonal) negative Block D P53 (DO-7) negative These tests were developed and their performance characteristics determined by [facility]. They may not have been cleared or approved by the U.S. Food and Drug Administration. The FDA has determined that such clearance or approval is not necessary. The above immunohistochemical/dualISH markers are ordered and reviewed by the pathologist. INTERPRETATION: B. Antrum biopsy: Negative for Helicobacter pylori organisms. D. Gastroesophageal junction, biopsy: No evidence of dysplasia. AM:gerardo 02/10/19
--- NOTE | 2019-02-08 06:30 | EGD_PTH ---
PATIENT: ЕКАТЕРИНА RO LOC: EN U#:[id number] AGE/SX: 59/F ROOM: RE02/08/[address]: Dr. Lee Zuniga MD : 1960 BED: DIS: 02/08/2019 SPEC #: [id number] RECD: 02/08/19 13:46 STATUS: IRLANDA EUSEBIO #: [id number] FILIBERTO: 02/08/19 06:[address]: Lee Zuniga DEPT: SURGICAL PATHOLOGY RECD BY: Fernando Jackson ENTERED: 02/08/19 14:17 SP TYPE: EGD BIOPSY OT DR: Dr. Shine Gibson MD Tissues: A - Duodenum, NOS B - Gastric mucous membrane C - Stomach, NOS D - Gastric mucous membrane Procedures: Special Stain Group II Surgery Specimen Level IV Alcian Blue/PAS (control) HEADER OPERATION: [place]GD [place] [place] PRE-OP DIAGNOSIS: Abnormal CT, GERD, LUQ pain TISSUE SUBMITTED: A. Duodenal lipoma biopsy, B. Antrum biopsy for histo and H. pylori, C. Lesser curvature, D. GE junction biopsy MICROSCOPIC DIAGNOSIS A. Duodenum, biopsy: No pathologic change. See comment. B. Gastric antrum, biopsy: Mild chronic gastritis. See comment. C. Stomach, lesser curvature, biopsy: Chronic inflammation. D. Gastroesophageal junction, biopsy: Chronic inflammation. Focal intestinal metaplasia. No evidence of dysplasia. Focal changes of reflux. See comment. AM:gerardo 02/09/19 COMMENT A. Clinical correlation is suggested. B. The results of immunohistochemistry for Helicobacter pylori will be reported separately ([id number]). D. Immunohistochemistry ([id number]) supports the above diagnosis. Alcian blue/PAS stain with matched control is used in the evaluation of the specimen. MICROSCOPIC DESCRIPTION Slides are reviewed. GROSS DESCRIPTION A - Received in fixative is one container labeled with the patient's name and designated duodenal lipoma biopsy. The specimen consists of multiple irregular fragments of light delacruz soft tissue that in aggregate measure 0.5 x 0.3 x 0.1 cm. The specimen is totally submitted in one cassette. B - Received in fixative is one container labeled with the patient's name and designated antrum biopsy. The specimen consists of one irregular fragment of light delacruz soft tissue that measures 0.6 x 0.2 x 0.1 cm. The specimen is totally submitted in one cassette. C - Received in fixative is one container labeled with the patient's name and designated lesser curvature biopsy. The specimen consists of one irregular fragment of light delacruz soft tissue that measures 0.4 x 0.3 x 0.1 cm. The specimen is totally submitted in one cassette. D - Received in fixative is one container labeled with the patient's name and designated GE junction biopsy. The specimen consists of multiple irregular fragments of light delacruz soft tissue that in aggregate measure 0.8 x 0.4 x 0.1 cm. The specimen is totally submitted in one cassette. / SJ:gerardo 02/08/19 TC: CPT: 06512 x4, 26709
--- NOTE | 2019-02-08 06:51 | OP.EGD_ITS ---
Patient Name: Chula Ba Procedure Date: 02/08/2019 6:25 AM Date of : 1960 Age: 59 Procedure: Upper GI endoscopy Indications: Heartburn Providers: Lee Zuniga MD Referring MD: Shine Gibson Medicines: See the Anesthesia note for documentation of the administered medications Complications: No immediate complications. Procedure: Pre-Anesthesia Assessment: - Prior to the procedure, a History and Physical was performed, and patient medications and allergies were reviewed. The patient's tolerance of previous anesthesia was also reviewed. The risks and benefits of the procedure and the sedation options and risks were discussed with the patient. All questions were answered, and informed consent was obtained. Prior Anticoagulants: The patient has taken no previous anticoagulant or antiplatelet agents. ASA Grade Assessment: II - A patient with mild systemic disease. After reviewing the risks and benefits, the patient was deemed in satisfactory condition to undergo the procedure. After obtaining informed consent, the endoscope was passed under direct vision. Throughout the procedure, the patient's blood pressure, pulse, and oxygen saturations were monitored continuously. The gastroscope was introduced through the mouth, and advanced to the second part of duodenum. The upper GI endoscopy was accomplished without difficulty. The patient tolerated the procedure well. Scope In: 6:36:17 AM Scope Out: 6:45:26 AM Total Procedure Duration Time 0 hours 9 minutes 9 seconds Findings: A medium-sized hiatal hernia was present. The Z-line was variable and was found 37 cm from the incisors. Biopsies were taken with a cold forceps for histology. A small area with possible Benz's like mucosa. Biopsied. Diffuse mildly erythematous mucosa without bleeding was found on the lesser curvature of the stomach and in the gastric antrum. Biopsies were taken with a cold forceps for histology. There was a medium-sized lipoma in the first portion of the duodenum. Biopsies were taken with a cold forceps for histology. Impression: - Medium-sized hiatal hernia. - Z-line variable, 37 cm from the incisors. Biopsied. Possible Benz's - Erythematous mucosa in the lesser curvature and antrum. Biopsied. - Duodenal lipoma. Biopsied. Recommendation: - Discharge patient to home. - Resume previous diet. - Continue present medications. Stop tobacco - Telephone my office for pathology results in 1 week. Procedure Code(s): --- Professional --- 38954, Esophagogastroduodenoscopy, flexible, transoral; with biopsy, single or multiple Diagnosis Code(s): --- Professional --- K44.9, Diaphragmatic hernia without obstruction or gangrene K22.8, Other specified diseases of esophagus K31.89, Other diseases of stomach and duodenum D17.5, Benign lipomatous neoplasm of intra-abdominal organs R12, Heartburn CPT copyright 2017 [employer]. All rights reserved. The codes documented in this report are preliminary and upon turbogenerator operator review may be revised to meet current compliance requirements. Lee Zuniga MD 02/08/2019 6:51:47 AM This report has been signed electronically. Number of Addenda: 0 Note Initiated On: 02/08/2019 6:25 AM
[2019-02-08] MEDS: Lactated Ringers 1,000 ML 100 ML IV (07:13)
== END 2019-02-08 07:55 | disposition home or self-care (01) ==
LOC: EN 05:32 → AC 05:33
PROVIDERS: Family Provider Family Medicine; PCP Family Medicine; Referring Provider Family Medicine; Visit Provider Surgery
PROC: 0DJ08ZZ Inspection of Upper Intestinal Tract, Via Natural or Artificial Opening Endoscopic (ICD-10-PCS; CPT 43235; principal; 2019-02-08 06:25)
DX: K44.9 Diaphragmatic hernia without obstruction or gangrene (principal); K21.0 Gastro-esophageal reflux disease with esophagitis; K22.8 Other specified diseases of esophagus; K31.89 Other diseases of stomach and duodenum; D17.5 Benign lipomatous neoplasm of intra-abdominal organs; R12 Heartburn; F17.210 Nicotine dependence, cigarettes, uncomplicated; K57.30 Diverticulosis of large intestine without perforation or abscess without bleeding; Z90.5 Acquired absence of kidney; Z90.49 Acquired absence of other specified parts of digestive tract; Z86.19 Personal history of other infectious and parasitic diseases; Z87.11 Personal history of peptic ulcer disease; K59.00 Constipation, unspecified; Z85.528 Personal history of other malignant neoplasm of kidney
CPT/HCPCS: 43239; 88305; 88313; 88342; J7120; J2405

== ENCOUNTER → 2019-02-10 08:12 | Outpatient (CLI) | payer OTHER, SELFPAY ==
[2019-02-03 09:01] VITALS: BMI 30.7
[2019-02-08 05:54] VITALS: BMI 29.9
--- NOTE | 2019-02-10 08:13 | RAD_ITS ---
STUDY: BARIUM ENEMA. REASON FOR EXAM: Female, 59 years old. Change in bowel habits. Incomplete colonoscopy. FLUOROSCOPY TIME (if supplied): ( 71 seconds ) minutes/seconds. A fluoroscopic views were obtained. TECHNIQUE: A tool dresser film was obtained. Following this, barium was introduced retrograde through the rectum. The entire colon was opacified. COMPARISON: None. FINDINGS: The patient is status post cholecystectomy. There is diverticulosis of the left hemicolon with scattered diverticula in the transverse colon as well as in the right hemicolon. There is no evidence of retrograde or antegrade obstruction to the flow of barium. No mass lesion is seen. RAD/Barium Enema No Air Cont IMPRESSION: Diffuse diverticulosis more prominent in the sigmoid colon. Electronically Signed: Keny Branch, at 14:23 EST , Service support ,
== END ==
PROVIDERS: Family Provider Family Medicine; PCP Family Medicine; Referring Provider Surgery; Visit Provider Surgery
DX: R19.4 Change in bowel habit (principal)
CPT/HCPCS: 74270

== ENCOUNTER → 2019-04-26 | Outpatient (CLI) | payer OTHER, SELFPAY ==
[2019-02-08 05:54] VITALS: BMI 29.9
[2019-04-26 14:44] LABS: Absolute Lymphocyte Count 2.35 X10^3/uL (0.83-4.51); Absolute Neutrophil Count 5.3 X10^3/uL (2.0-7.7); Basophil# 0.08 X10^3/uL; Eosinophil# 0.19 X10^3/uL; Eosinophils% 2.3 % (0-5); Hematocrit 45.2 % (37-47); Hemoglobin 14.8 g/dL (12.0-15.0); Lymphocyte # 2.35 X10^3/ul (4.0); Lymphocyte % 27.9 % (19-41); Mean Corp Hgb Conc 32.7 g/dL (32-36); Mean Corpuscular Hgb 29.8 pg (27.0-32.0); Mean Corpuscular Volume 90.9 fL (81-99); Mean Platelet Vol. 10.7 fl (6.2-12.0); Monocyte# 0.42 X10^3/uL; NRBC Flagged by Analyzer 0 % (0-5); Neutrophil # 5.33 X10^3/uL (2.7-7.7); Neutrophil % 63.3 % (47-70); Platelet Count 231 K/mm3 (150-450); RBC Distribution Width CV 13.4 % (11.6-14.6); RBC Distribution Width SD 45.2 fl (35.1-43.9); Red Blood Count 4.97 M/mm3 (4.2-5.4); White Blood Count 8.4 K/mm3 (4.4-11.0)
[2019-04-26 14:57] LABS: AST(SGOT) 21 U/L (15-37); Alanine Aminotransfer ALT/SGPT 38 U/L (13-56); Albumin, Serum 3.6 g/dL (3.2-5.0); Alkaline Phosphatase 66 U/L (45-117); Anion Gap 9 (5-15); BUN 21 mg/dL (7-18); BUN/Creat Ratio 19.3 RATIO (10-20); Calcium,Total 9.2 mg/dL (8.5-10.1); Chloride 108 mmol/L (98-107); Cholesterol 176 mg/dL (200); Creatinine, Serum 1.09 mg/dL (0.55-1.02); EST Glomerular Filtration Rate 54 mL/min (>60); Est Glom Filt Rate - Afr Amer 66 mL/min (>60); Globulin 3.6 g/dL (2.2-4.2); Glucose 118 mg/dL (74-106); High Density Lipoprotein 58 mg/dL; Potassium 3.8 mmol/L (3.5-5.1); Protein, Total 7.2 g/dL (6.4-8.2); Sodium Level 139 mmol/L (136-145); Triglycerides 149 mg/dL; Very Low Density Lipoprotein 30 mg/dL (5-40)
== END | disposition home or self-care (01) ==
PROVIDERS: PCP Family Medicine; Referring Provider Family Medicine; Visit Provider Family Medicine
DX: E78.5 Hyperlipidemia, unspecified (principal); R73.02 Impaired glucose tolerance (oral)
CPT/HCPCS: 36415; 80053; 80061; 83036; 85025

== ENCOUNTER → 2019-05-09 | Outpatient (CLI) | payer OTHER, SELFPAY ==
[2019-02-08 05:54] VITALS: BMI 29.9
[2019-05-09 14:20] LABS: Anion Gap 6 (5-15); BUN 18 mg/dL (7-18); BUN/Creat Ratio 17.1 RATIO (10-20); Chloride 107 mmol/L (98-107); Creatinine, Serum 1.05 mg/dL (0.55-1.02); EST Glomerular Filtration Rate 57 mL/min (>60); Est Glom Filt Rate - Afr Amer 69 mL/min (>60); Glucose 94 mg/dL (74-106); Potassium 3.7 mmol/L (3.5-5.1); Sodium Level 138 mmol/L (136-145)
== END | disposition home or self-care (01) ==
LOC: MFPLAB 12:10
PROVIDERS: PCP Family Medicine; Referring Provider Family Medicine; Visit Provider Family Medicine
DX: R94.4 Abnormal results of kidney function studies (principal)
CPT/HCPCS: 36415; 80048

== ENCOUNTER → 2019-08-25 | Outpatient (CLI) | payer OTHER, SELFPAY ==
[2019-02-08 05:54] VITALS: BMI 29.9
[2019-08-25 12:45] LABS: Absolute Lymphocyte Count 2.08 X10^3/uL (0.83-4.51); Absolute Neutrophil Count 6.8 X10^3/uL (2.0-7.7); Basophil# 0.06 X10^3/uL; Basophil% 0.6 % (0-1); Eosinophil# 0.19 X10^3/uL; Hematocrit 43.4 % (37-47); Hemoglobin 14.1 g/dL (12.0-15.0); Lymphocyte # 2.08 X10^3/ul (4.0); Lymphocyte % 21.6 % (19-41); Mean Corp Hgb Conc 32.5 g/dL (32-36); Mean Corpuscular Hgb 30.3 pg (27.0-32.0); Mean Corpuscular Volume 93.1 fL (81-99); Mean Platelet Vol. 10.5 fl (6.2-12.0); Monocyte# 0.48 X10^3/uL; NRBC Flagged by Analyzer 0 % (0-5); Neutrophil # 6.79 X10^3/uL (2.7-7.7); Neutrophil % 70.4 % (47-70); Platelet Count 253 K/mm3 (150-450); RBC Distribution Width CV 12.2 % (11.6-14.6); RBC Distribution Width SD 41.9 fl (35.1-43.9); Red Blood Count 4.66 M/mm3 (4.2-5.4); White Blood Count 9.6 K/mm3 (4.4-11.0)
[2019-08-25 12:53] LABS: ALB/GLOB Ratio 0.8 RATIO (0.9-2.4); AST(SGOT) 22 U/L (15-37); Alanine Aminotransfer ALT/SGPT 29 U/L (13-56); Albumin, Serum 3.3 g/dL (3.2-5.0); Alkaline Phosphatase 65 U/L (45-117); Anion Gap 7 (5-15); BUN 21 mg/dL (7-18); BUN/Creat Ratio 22.5 RATIO (10-20); Chloride 109 mmol/L (98-107); Cholesterol 182 mg/dL (200); Creatinine, Serum 0.94 mg/dL (0.55-1.02); EST Glomerular Filtration Rate 65 mL/min (>60); Est Glom Filt Rate - Afr Amer 78 mL/min (>60); Globulin 3.9 g/dL (2.2-4.2); Glucose 115 mg/dL (74-106); High Density Lipoprotein 67 mg/dL; Protein, Total 7.2 g/dL (6.4-8.2); Sodium Level 143 mmol/L (136-145); Triglycerides 110 mg/dL; Very Low Density Lipoprotein 22 mg/dL (5-40)
[2019-08-25 13:21] LABS: Hemoglobin A1c 5.5 % (3.8-5.6)
--- OUTSIDE RECORDS SUMMARY | 2020-01-10 18:28 | XMS RPT_ITS | CCD ---
:1960 External Reference #:[id number] Author Organization [facility] Care Team Providers Name Role Phone TIKA TERRY Attending Unavailable TIKA TERRY Referring Unavailable Allergies Reported Allergen Reaction(s) Severity Date of Onset Location Doxycycline Translations: 03-26-2015 - [facility] [ DOXYCYCLINE] [facility] Reposi tory Seasonal allergy 01-24-2014 - [facility] Translations: [ SEASONAL Cam pus Repository ALLERGIES] Problems Category Problem Name Status Date Location Asthma Unspecified asthma, Active 06-09-2018 - [facility] uncomplicated [place] (000 00) Other lower respiratory Cough Active 06-09-2018 - [facility] disease [place] (0000 0) Other lower respiratory Wheezing Active 06-09-2018 - [facility] (0000 0) Residual codes; Tobacco use Active 06-09-2018 - [facility] inic unclassified [place] (0000 0) Results Result Name Value Range Unit Interpretation Flag Date Location xr chest 2v frontal/lat on 2018-06-09 XR CHEST 2V * * *Final Report* * * Normal 06-09 [facility] FRONTAL/LAT DATE OF EXAM: Jun 09 2018 5:05PM [place] WOX [id number] - XR CHEST 2V FRONTAL/LAT / ([id number]) PROCEDURE REASON: Persistent cough for 3 weeks or longer * * * * Physician Interpretation * * * * EXAMINATION: CHEST RADIOGRAPH (2 VIEW FRONTAL and LATERAL) CLINICAL HISTORY: Persistent cough for 3 weeks or longer MQ: XC2_5 Comparison: Comparison is made to prior chest dated 01 November 2016 RESULT: Lines, tubes, and devices: None. Lungs and pleura: Mild diffuse chronic interstitial lung mar kings appear stable. There is no focal consolidation or acute pleural pro cess. There is no overt pulmonary edema. Cardiomediastinal silhouette: Normal cardiomediastinal silho uette. Other: The bony structures are intact IMPRESSION: Stable chest. No acute cardiopulmonary process. Blow Pit Operator: ERENDIRA Transcribe Date/Time: Jun 09 2018 5:07P Dictated by : RON GRANADOS MD This examination was interpreted and the report reviewed and electronically signed by: RON GRANADOS MD on Jun 09 2018 5:07PM EST [id number] progress on 2018-05 Protein mass conc HNO ID: [id number] Normal [facility] Author: Tika Nickolaseder [place] ([id number]) Service: ? Author Type: Nurse Practitioner Type: Progress Notes Filed: 06/09/2018 6:15 PM Note Text: Subjective HPI Pt presents with c/o?persistent cough x 3 weeks. Hx asthma, current everyday smoker, kidney CA. Did not receive influenza vaccine. Cough is dry nonproductive. +coughing fits, +chest tightness, +wheezing. Denies fever, chills, myalgias, dyspnea. No known exposure to sick contacts. Has not taken any OTC medications. Review of Systems Constitutional: Negative for chills and fever. HENT: Positive for congestion. Negative for ear discharge, e ar pain, sinus pain, sore throat and tinnitus. Respiratory: Positive for cough and wheezing. Negative for s putum production and shortness of breath. Cardiovascular: Negative for chest pain. Skin: Negative for rash. Neurological: Negative for headaches. Objective Physical Exam Constitutional: She is oriented to person, place, and time a nd well-developed, well-nourished, and in no distress. No distr ess. HENT: Head: Normocephalic. Right Ear: Hearing, tympanic membrane, external ear and ear canal normal. Left Ear: Hearing, tympanic membrane, external ear and ear c anal normal. Nose: Nose normal. Right sinus exhibits no maxillary sinus t enderness and no frontal sinus tenderness. Left sinus exhibits no maxillar y sinus tenderness and no frontal sinus tenderness. Mouth/Throat: Uvula is midline, oropharynx is clear and mois t and mucous membranes are normal. No oropharyngeal exudate. Eyes: Pupils are equal, round, and reactive to light. Conjun ctivae are normal. Right eye exhibits no discharge. Left eye exhibits n o discharge. Neck: Neck supple. Cardiovascular: Normal rate, regular rhythm and normal heart sounds. Exam reveals no gallop and no friction rub. No murmur heard. Pulmonary/Chest: Effort normal. No accessory muscle usage. N o respiratory distress. She has decreased breath sounds (Good air movement throughout. Pulse ox 98%). She has wheezes. She has no rhonchi. She has no rales. Lymphadenopathy: She has no cervical adenopathy. Neurological: She is alert and oriented to person, place, an d time. Skin: Skin is warm and dry. She is not diaphoretic. BP 111/82 Pulse 108 Temp 36.5 ?C (97.7 ?F) (Tympanic) Resp 18 Wt 75.3 kg (166 lb) LMP 05/02/2005 SpO2 96% BMI 29.41 kg/m? .Patient presents with: Cough: chest congestion and pain x 3 weeks PAST MEDICAL HISTORY Diagnosis Date - Benign neoplasm of colon - Benign neoplasm of colon 2008 Mateo II-III/IV. Path T3b N0 Mx - Benign neoplasm of rectum and anal canal - Deaf - Family history of malignant neoplasm of gastrointestinal t ract - Hx of renal cell cancer - Impaired glucose tolerance - Peptic ulcer, unspecified site, unspecified as acute or ch ronic, without mention of hemorrhage, perforation, or obstruction 1996 Peptic ulcer disease - Personal history of colonic polyps PAST SURGICAL HISTORY Procedure Laterality Date - APPENDECTOMY - CHOLECYSTECTOMY HX lab - COLONOS W/REM POLYP SNARE 06/23/11 repeat 5 years - COLONOSCOP W/ OR W/O [facility] SPEC 09/05/2008 Colonoscopy - COLONOSCOP W/ OR W/O [facility] SPEC 07/05/15 Colonoscopy (MAC) - EGD W/O OR W/BRUSH/WASH 1996 EGD - PAST SURGICAL HISTORY OF 1996 SBO - PAST SURGICAL HISTORY OF 2008 L radical nephrectomy - PAST SURGICAL HISTORY OF 11/09/2012 laceration of right thumb and tendon repair; done at [facility] in [place] - PAST SURGICAL HISTORY OF 12/2014 Hysteroscopy, DANDC ALLERGIES Doxycycline; Seasonal Allergies MEDICATIONS predniSONE (DELTASONE) 20 mg tablet Take 2 tablets by mouth once daily for 5 days. Take daily with food. benzonatate (TESSALON PERLE) 100 mg capsule Take 1 capsule b y mouth three times daily as needed. albuterol HFA (PROVENTIL HFA, VENTOLIN HFA) 90 mcg/actuation inhaler Inhale 2 Puffs as instructed every 4 hours as needed. Inhalational Spacing Device spcr 1 Device one time only for 1 dose. citalopram (CELEXA) 40 mg tablet take 1 tablet by mouth once daily pantoprazole DR (PROTONIX) 20 mg tablet take 1 tablet by anabela th 1/2 HR BEFORE BREAKFAST montelukast (SINGULAIR) 10 mg tablet take 1 tablet by mouth at bedtime dicyclomine (BENTYL) 10 mg capsule Take 1 capsule by mouth f our times daily as needed. ibuprofen (MOTRIN) 600 mg tablet Take 1 tablet by mouth ever y 6 hours as needed for Pain. fexofenadine (GINGER) 60 mg tablet Take 60 mg by mouth once daily. TRIAMCINOLONE ACETONIDE (NASACORT NASAL) Use in the nose. ACETAMINOPHEN 500 MG TAB as necessary FAMILY HISTORY Problem Relation Age of Onset - Cancer Mother stomach ca. age 51 - Colon Cancer Father at age 70 - Cancer Maternal Grandfather stomach ca. Social History Tobacco Use - Smoking status: Current Every Day Smoker Packs/day: 0.50 Years: 30.00 Pack years: 15.00 Types: Cigarettes - Smokeless tobacco: Never Used Substance Use Topics - Alcohol use: Yes Comment: occ. - Drug use: No ASSESSMENT/PLAN: 1. Persistent cough for 3 weeks or longer - ICD9: 786.2, ICD 10: R05 (primary diagnosis) - XR CHEST 2V FRONTAL/LAT No acute process. - BENZONATATE 100 MG CAPSULE Instructed to f/u in 1-2 weeks with PCP, Dr. Conde. 2. Wheezing - ICD9: 786.07, ICD10: R06.2 - ALBUTEROL SULFATE 2.5 MG/3 ML (0.083 %) SOLUTION FOR NEBUL IZATION - PREDNISONE 20 MG TABLET - ALBUTEROL SULFATE HFA 90 MCG/ACTUATION AEROSOL INHALER - INHALATIONAL SPACING DEVICE 3. Uncomplicated asthma, unspecified asthma severity, unspec ified whether persistent - ICD9: 493.90, ICD10: J45.909 4. Tobacco abuse - ICD9: 305.1, ICD10: Z72.0 - Cessation encouraged. The patient is instructed to return or seek emergency treatm ent if symptoms become worse or with any acute change in condition. The patient verbalizes understanding and is in agreement wit h plan of care. Tika Terry, VACCINE CUSTOMER REPRESENTATIVE Protein mass conc HNO ID: [id number] Normal [facility] Author: Lindy Mendez [place] ([id number]) Service: ? Author Type: ? Type: Progress Notes Filed: 06/09/2018 5:05 PM Note Text: Radiology Service Progress Note PATIENT NAME: Екатерина Ro DATE OF SERVICE: June 09, 2018 TIME: 5:00 PM PATIENT IDENTITY VERIFICATION COMPLETED USING TWO (2) METHOD S: Patient confirmed name verbally and Date of . PATIENT GENDER DATA: Female. status: : No status: NO. PATIENT RELEVANT IMPLANT DATA REVIEWED: Not Applicable RADIOLOGY DEPARTMENT: General X-ray: Exam(s) Completed: Ches t X-Ray PERIPHERAL IV DATA: Not applicable SIGNED BY: Lindy Mendez June 09, 2018 5:00 PM cnov on 2018-06-09 CNOV Office Visit (UCWSTR) Normal 06-10-19 19 [place] [facility] ЕКАТЕРИНА RO ([id number]) 1960 F [facility] Date Time Provider Department ([id number]) 06/09/18 4:15 PM TIKA TERRY [facility] During your visit today, we recorded the following informati on about you: Temperature Pulse Respiration Blood pressure 97.7 degrees 108/minute 18/minute 111/82 Weight 75.3 kg Ammy Beatty Ma 06/09/2018 4:57 PM Signed 2.5 solution aerosol treatme nt given per doctor's orders. Prior to treatment O2 Sat is 96%. Treatment completed. O2 sat is 98%. Tolerated we ll. Ammy Terry APRN.VACCINE CUSTOMER REPRESENTATIVE 06/09/2018 6:15 PM Signed Subjective HPI Pt presents with c/o?persistent cough x 3 weeks. Hx asthma, current everyday smoker, kidney CA. Did not receive influenza vaccine. Cough is dry nonproductive. +coughing fits, +chest tightness, +wheezing. Denies fever, chills, myalgias, dyspnea. No known exposure to sick contacts. Has not taken any OTC medications. Review of Systems Constitutional: Negative for chills and fever. HENT: Positive for congestion. Negative for ear discharge, e ar pain, sinus pain, sore throat and tinnitus. Respiratory: Positive for cough and wheezing. Negative for sputum production and shortness of breath. Cardiovascular: Negative for chest pain. Skin: Negative for rash. Neurological: Negative for headaches. Objective Physical Exam Constitutional: She is oriented to perso n, place, and time and well-developed, well-nourished, and in no distress. No distress. HENT: Head: Normocephalic. Right Ear: Hearing, tympanic membrane, external ear and ear canal normal. Left Ear: Hearing, tympanic membrane, external ear and ear c anal normal. Nose: Nose normal. Right sinus exhibits no maxillary s inus tenderness and no frontal sinus tenderness. Le ft sinus exhibits no maxillary sinus tenderness and no frontal sinus tenderness. Mouth/Throat: Uvula is midline, oropharynx is clear and mois t and mucous membranes are normal. No oropharyngeal exudate. Eyes: Pupils are equal, round, and react sonya to light. Conjunctivae are normal. Right eye exhibits no discharge. Left eye exhibits no discha rge. Neck: Neck supple. Cardiovascular: Normal rate, regular rhythm and normal heart sounds. Exam reveals no gallop and no friction rub. No murmur heard. Pulmonary/Chest: Effort normal. No accessory muscle usage. N o respiratory distress. She has decreased breath sound s (Good air movement throughout. Pulse ox 98%). She has wheezes. She has no rhonchi. She has no ral es. Lymphadenopathy: She has no cervical adenopathy. Neurological: She is alert and oriented to person, place, an d time. Skin: Skin is warm and dry. She is not diaphoretic. BP 111/82 Pulse 108 Temp 36.5 ?C (97.7 ?F) (Tympanic) Resp 18 Wt 75.3 kg (166 lb) LMP 05/02/2005 SpO2 96% BMI 29.41 kg/ m? .Patient presents with: Cough: chest congestion and pain x 3 weeks PAST MEDICAL HISTORY Diagnosis Date - Benign neoplasm of colon - Benign neoplasm of colon 2008 [place]o II-III/IV. Path T3b N0 Mx - Benign neoplasm of rectum and anal canal - Deaf - Family history of malignant neoplasm of gastrointestinal t ract - Hx of renal cell cancer - Impaired glucose tolerance - Peptic ulcer, unspecified site, unspecified as acute or ch ronic, without mention of hemorrhage, perforation, or obstruction 1996 Peptic ulcer disease - Personal history of colonic polyps PAST SURGICAL HISTORY Procedure Laterality Date - APPENDECTOMY - CHOLECYSTECTOMY HX lab - COLONOS W/REM POLYP SNARE 06/23/11 repeat 5 years - COLONOSCOP W/ OR W/O [facility] SPEC 09/05/2008 Colonoscopy - COLONOSCOP W/ OR W/O [facility] SPEC 07/05/15 Colonoscopy (MAC) - EGD W/O OR W/BRUSH/WASH 1996 EGD - PAST SURGICAL HISTORY OF 1996 SBO - PAST SURGICAL HISTORY OF 2008 L radical nephrectomy - PAST SURGICAL HISTORY OF 11/09/2012 laceration of right thumb and tendon repair; done at [facility] in [place] - PAST SURGICAL HISTORY OF 12/2014 Hysteroscopy, DANDC ALLERGIES Doxycycline; Seasonal Allergies MEDICATIONS predniSONE (DELTASONE) 20 mg tablet Take 2 tablets by mouth once daily for 5 days. Take daily with food. benzonatate (TESSALON PERLE) 100 mg capsule Take 1 capsule by mouth three times daily as needed. albuterol HFA (PROVENTIL HFA, VENTOLIN HFA) 90 m cg/actuation inhaler Inhale 2 Puffs as instructed every 4 hours as needed. Inhalational Spacing Device spcr 1 Device one time only for 1 dose. citalopram (CELEXA) 40 mg tablet take 1 tablet by mouth once daily pantoprazole DR (PROTONIX) 20 mg tablet take 1 tablet by mouth 1/2 HR BEFORE BREAKFAST montelukast (SINGULAIR) 10 mg tablet take 1 tablet by mouth at bedtime dicyclomine (BENTYL) 10 mg capsule Take 1 capsule by mouth four times daily as needed. ibuprofen (MOTRIN) 600 mg ta blet Take 1 tablet by mouth every 6 hours as needed for Pain. fexofenadine (GINGER) 60 mg tablet Take 60 mg by mouth once daily. TRIAMCINOLONE ACETONIDE (NASACORT NASAL) Use in the nose. ACETAMINOPHEN 500 MG TAB as necessary FAMILY HISTORY Problem Relation Age of Onset - Cancer Mother stomach ca. age 51 - Colon Cancer Father at age 70 - Cancer Maternal Grandfather stomach ca. Social History Tobacco Use - Smoking status: Current Every Day Smoker Packs/day: 0.50 Years: 30.00 Pack years: 15.00 Types: Cigarettes - Smokeless tobacco: Never Used Substance Use Topics - Alcohol use: Yes Comment: occ. - Drug use: No ASSESSMENT/PLAN: 1. Persistent cough for 3 weeks or longer - ICD9: 786. 2, ICD10: R05 (primary diagnosis) - XR CHEST 2V FRONTAL/LAT No acute process. - BENZONATATE 100 MG CAPSULE Instructed to f/u in 1-2 weeks with PCP, Dr. Conde. 2. Wheezing - ICD9: 786.07, ICD10: R06.2 - ALBUTEROL SULFATE 2.5 MG/3 ML (0.083 %) SOLUTION FOR NEBUL IZATION - PREDNISONE 20 MG TABLET - ALBUTEROL SULFATE HFA 90 MCG/ACTUATION AEROSOL INHALER - INHALATIONAL SPACING DEVICE 3. Uncomplicated asthma, unspecified asthma severity, unspec ified whether persistent - ICD9: 493.90, ICD10: J45.909 4. Tobacco abuse - ICD9: 305.1, ICD10: Z72.0 - Cessation encouraged. The patient is instructed to return or seek emergency amilcar tment if symptoms become worse or with any acute change in condition. The patient verbalizes understanding and is in agreement w ith plan of care. Tika Terry CNP Referring Provider: SELF [[id number]] Allergies As of Date: 06/09/2018 Noted Allergy Reaction DOXYCYCLINE 03/26/2015 6 - Diarrhea SEASONAL ALLERGIES 01/24/2014 14 - Other: See Comments Date Reviewed: 06/09/2018 Reviewed by: Helena Escobedo [employer] Bak[employer] Clerk - Fully Assessed Reason for Visit: Cough [28] Cmt: chest congestion and pain x 3 weeks Primary Visit Diagnosis:Persistent cough for 3 weeks or long er [R05] Other Visit Diagnoses:Wheezing [R06.2] Uncomplicated asthma, unspecified asthma severity, unspecified whether persistent [J45.909] Tobacco abuse [Z72.0] Order(s):XR CHEST 2V FRONTAL/LAT [1820020] Order #: [id number] FUTURE [] albuterol 2.5 mg /3 mL (0.083 %) 2.5 mg (PROVENTIL )Disp: Rfl: predniSONE (DELTASONE) 20 mg tabletTake 2 tablets by mouth o nce daily for 5 days. Take daily with food.Disp: 10 tabletRfl: 0 benzonatate (TESSALON PERLE) 100 mg capsuleTake 1 capsule by mouth three times daily as needed.Disp: 60 capsuleRfl: 0 albuterol HFA (PROVENTIL HFA, VENTOLIN HFA) 90 mcg/actuation inhalerInhale 2 Puffs as instructed every 4 hours as needed. Disp: 1 InhalerRfl: 0 Inhalational Spacing Device spcr1 Device one time only for 1 dose.Disp: 1 EachRfl: 0 Prescriptions as of 06/09/2018 Sig: PREDNISONE 20 MG TABLET Take 2 tablets by mouth once * BENZONATATE 100 MG CAPSULE Take 1 capsule by mouth three* ALBUTEROL SULFATE HFA 90 MCG/* Inhale 2 Puffs as instructed * INHALATIONAL SPACING DEVICE 1 Device one time only for 1 * CITALOPRAM 40 MG TABLET take 1 tablet by mouth once d* Patient not taking: Reported on 06/09/2018 PANTOPRAZOLE 20 MG TABLET,DEL* take 1 tablet by mouth 1/2 HR * Patient not taking: Reported on 06/09/2018 MONTELUKAST 10 MG TABLET take 1 tablet by mouth at bed* Patient not taking: Reported on 06/09/2018 DICYCLOMINE 10 MG CAPSULE Take 1 capsule by mouth four * Patient not taking: Reported on 06/09/2018 IBUPROFEN 600 MG TABLET Take 1 tablet by mouth every * Patient not taking: Reported on 06/09/2018 FEXOFENADINE 60 MG TABLET Take 60 mg by mouth once scotty* NASACORT NASAL Use in the nose. ACETAMINOPHEN 500 MG TABLET as necessary Problem List As Of Date 06/09/2018 Noted Resolved TOBACCO USE DISORDER [F17.200] INVALID FOR* GASTROINTEST HEMORR NOS [K92.2] INVALID FOR* BENIGN NEOPLASM LG BOWEL [D12.6] INVALID FOR* FAMILY HX GI MALIGNANCY [Z80.0] INVALID FOR* Malignant neoplasm of kidney, except pelvis [C6*INVALID FOR* More... 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 Pr ior to treatment O2 Sat is 96%. Treatment completed. O2 sat is 98%. Tolerated well. Ammy Beatty Ma Prescriptions ordered this encounter Disp Refills Start End ALBUTEROL SULFATE 2.5 MG/3 ML (0.083* 06/09/2018 06/09/2018 Route: INHALATION PREDNISONE 20 MG TABLET 10 t* 0 06/09/2018 06/14/2018 Route: ORAL Sig: Take 2 tablets by mouth once daily for 5 days. Take ria ly with food. BENZONATATE 100 MG CAPSULE 60 c* 0 06/09/2018 Route: ORAL Sig: Take 1 capsule by mouth three times daily as needed. ALBUTEROL SULFATE HFA 90 MCG/ACTUATI* 1 In* 0 06/09/2018 Route: INHALATION Sig: Inhale 2 Puffs as instructed every 4 hours as needed. INHALATIONAL SPACING DEVICE 1 Ea* 0 06/09/2018 06/09/2018 Route: Misc Si Device one time only for 1 dose. Medications Discontinued During This Encounter albuterol (PROVENTIL) 5 mg/mL nebu 1 mL 0 11/01/2016 06/09/2018 Class: Back Office Route: INHALATION Sig: Inhale 0.5 mL as instru cted one time only for 1 dose. 1 DOSE NOW - BACK OFFICE. PLACE 0.5 ML PER DROPPER AND 2.5 ML OF NORMAL SALINE INTO RESERVOIR. Disc: Reason for discontinue is not on file. Encounter Status:Closed by TIKA TERRY CNP on Encounters Date Type Reason Provider Location 06-09-2018 - Patient encounter TIKA TERRY [facility] 06-11-2018 procedure [place] (0000 0) Summary Purpose Family History No Family History Records Found Advance Directives No Advanced Directives Records Found Additional Source Comments FOR RECORDS PERTAINING TO PATIENTS WHO ARE OR HAVE BEEN ENROLLED IN A CHEMICAL DEPENDENCY/SUBSTANCE ABUSE PROGRAM, SOME INFORMATION MAY BE OMITTED. This clinical summary was aggregated from multiple sources. Caution should be exercised in using it in the provision of clinical care. This summary normalizes information from multiple sources, and as a consequence, information in this document may materially changethe coding, format and clinical context of patient data. In addition, data may be omittedin some cases. CLINICAL DECISIONS SHOULD BE BASED ON THE PRIMARY CLINICAL RECORDS. [facility] provides no warranty or guarantee of the accuracy or completeness of information in this document. UNRECOGNIZED CONTENT PROVIDED BELOW FOR UNRECOGNIZED SECTION INFORMATION SOURCE DATE CREATED AUTHOR AUTHOR'S KYLE Grey 06/12/2018 [facility]
== END | disposition home or self-care (01) ==
LOC: MFPLAB 09:40
PROVIDERS: PCP Family Medicine; Referring Provider Family Medicine; Visit Provider Family Medicine
DX: E78.5 Hyperlipidemia, unspecified (principal); F17.201 Nicotine dependence, unspecified, in remission; R73.02 Impaired glucose tolerance (oral)
CPT/HCPCS: 36415; 80053; 80061; 83036; 85025

== ENCOUNTER → 2020-03-09 | Outpatient (CLI) | payer OTHER, SELFPAY ==
[2019-02-08 05:54] VITALS: BMI 29.9
[2020-03-14 11:36] LABS: HPV Reflexed? NOT INDICATED
== END | disposition home or self-care (01) ==
LOC: LABSPEC 16:08
PROVIDERS: PCP Family Medicine; Referring Provider Family Medicine; Visit Provider Registered Nurse
DX: Z01.419 Encounter for gynecological examination (general) (routine) without abnormal findings (principal)
CPT/HCPCS: 88175; G0145

== ENCOUNTER 2020-06-19 18:14 | Emergency (ER) | payer OTHER, SELFPAY ==
[2019-02-08 05:54] VITALS: BMI 29.9
[2020-06-19 18:16] VITALS: BP 145/88; PULSE 102; RESP 19; TEMP 36; O2SAT 99; BMI 28.1
--- NOTE | 2020-06-19 18:53 | CT_ITS ---
INDICATION: left periauricular swelling/pain EXAMINATION: CT Soft Tissue Neck W/O Contrast Injection TECHNIQUE: Multiple axial images were obtained of the neck. A radiation dose optimization technique was used for this scan. IV Contrast dosage and agent: None. COMPARISON: None. FINDINGS: NASOPHARYNX: Unremarkable. SUPRAHYOID NECK: Unremarkable oropharynx, oral cavity, parapharyngeal space, and retropharyngeal space. INFRAHYOID NECK: Unremarkable larynx, hypopharynx, and supraglottis. THYROID: 9 mm hypodense nodule in the right lower pole. SALIVARY GLANDS: The parotid gland on the left is enlarged with surrounding inflammatory changes.. LYMPH NODES: No cervical or supraclavicular lymphadenopathy. VASCULAR STRUCTURES: Unremarkable. VISUALIZED PORTIONS OF THE ORBITS, PARANASAL SINUSES, MASTOID AIR CELLS AND SKULL BASE: Unremarkable. BONES: Unremarkable. THORACIC INLET: Clear lung apices. CT/Soft Tissue Neck without Contr IMPRESSION: Parotitis on the left. No sialolith visualized. 9 mm hypodense right lower pole thyroid nodule. Recommend dedicated thyroid ultrasound. Electronically Signed: Ghanshyam Casanova MD at 20:13 EDT Tel , Service support ,
--- NOTE | 2020-06-19 18:55 | ED.DCSUM_ITS ---
History of Present Illness Chief Complaint: Edema Detail of Chief Complaint: left periauricular pain/swelling Informant: Patient Onset: Yesterday Context: Gradual Onset Timing: Continuous, Waxes and wanes Quality: sore/painful Location: left periauricular and into preauric area Current Severity: Moderate Maximum Severity: Moderate Worsened by: opening mouth Relieved by: remaining still Associated Symptoms: malaise w/o fevers or chills Narrative: Patient had her first Covid vaccination 4 days ago. Yesterday she started having some soreness and swelling behind/under her left ear, last night it progressed up to her preauricular area of her face, but then it went down, it then came back today and has been persistent. 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 She denies any changes in taste or extra unusual taste in her mouth. No fevers or chills. She denies any other symptoms but notes that it is difficult to eat notably because of opening her mouth which makes the pain in her left preauricular area much worse. No odynophagia, dyspnea, chest or abdominal symptoms. - Past Medical History (1) Diverticulosis Status: Chronic (2) GERD with esophagitis Status: Chronic (3) Hiatal hernia Status: Chronic (4) Hyperlipidemia Status: Chronic (5) Chronic gastritis Status: Chronic Past Medical History - Allergies and Home Meds Allergies/Adverse Reactions: Allergies No Known Allergies Allergy (Verified 06/19/20 18:17) Primary Care Physician: Shine Gibson MD [Primary Care Provider] - Surgical History: appendectomy, cholecystectomy, - - Left nephrectomy for renal cell cancer. Lysis of adhesions. Lives: Spouse/ Significant Other Smoking Status: Current every day smoker - Family History Maternal Family History: Family History (Last Reviewed 02/17/19 @ 10:24 by Amparo Abernathy) Father Myocardial infarction Heart disease Colon cancer Mother Cancer Family History: Reports: Cancer - Gastric cancer. Paternal Family History: Family History (Last Reviewed 02/17/19 @ 10:24 by Amparo Abernathy) Father Myocardial infarction Heart disease Colon cancer Mother Cancer Family History: Reports: Cancer - Colon cancer., Heart Disease Review of Systems General: Reports: Malaise. Denies: Chills, Fever, Sweats Eyes: Denies: Visual changes - bilaterally, Diplopia ENT: Reports: Left ear pain - More periauricular and preauricular pain/swelling. See HPI.. Denies: Right ear pain, Rhinorrhea, Sore throat Cardiovascular: Denies: Chest pain, Palpitations Respiratory: Denies: Dyspnea, Cough, Dyspnea on exertion Gastrointestinal: Denies: Abdominal pain, Nausea, Vomiting, Diarrhea, Melena, Hematochezia Genitourinary: Denies: Dysuria, Hematuria, Frequency Musculoskeletal: Denies: Back pain, Swelling, Extremity Pain Skin: Denies: Rash, Wounds Neurological: Denies: Headache, Weakness, Numbness Physical Exam Vital Signs/Narrative: Vital Signs Temp Pulse Resp BP Pulse Ox 06/19/20 18:16 96.8 F L 102 H 19 H 145/88 H 99 Inital Vital Signs reviewed: Yes General: Well nourished, Well developed, No Acute Distress Head: Normocephalic, Atraumatic Eyes: Perrl, EOMI ENT: Moist mucous membranes - Normal Stensen's duct without discharge even with palpation of parotid area which is tender, No rhinorrhea, TM's clear - EACs normal bilaterally with no pain on pulling of the pinna, - - Mild trismus due to pain in the left preauricular area when opens mouth. Tender swollen area preauricular left side, less so inferiorly submandibularly. Mastoid nontender. No erythema. Neck: Supple, - - Tenderness possible lymphadenopathy left submandibular but no superficial cervical palpable nodes or posterior cervical nodes. Cardiovascular: Regular rate, Regular rhythm Respiratory: No distress, CTA bilaterally Abdomen: Soft, Nontender, Nondistended Extremities: Nontender, No edema Skin: Normal color, No rash, No Trauma Neurological: Alert, Oriented x3, Cranial nerves II-XII grossly intact, Normal Strength, Normal Sensation, Normal Gait Psychological: Normal affect, Normal Mood Diagnostic/Tx/Re-eval Impressions Soft Tissue Neck CT 06/19/20 18:53 IMPRESSION: Parotitis on the left. No sialolith visualized. 9 mm hypodense right lower pole thyroid nodule. Recommend dedicated thyroid ultrasound. Electronically Signed: Ghanshyam Casanova MD at 20:13 EDT Tel , Service support , 06/19/20 18:53 CT Neck [Soft Tissue Neck without Contr] [CT] Stat Laboratory Results 06/19/20 06/19/20 19:10 19:10 WBC 15.2 H RBC 4.91 Hgb 15.1 H Hct 45.3 MCV 92.3 MCH 30.8 MCHC 33.3 RDW Std Deviation 44.0 H RDW Coeff of Citlali 13.2 Plt Count 239 MPV 9.8 Immature Gran % (Auto) 0.300 Neut % (Auto) 74.9 H Lymph % (Auto) 17.6 L [place] % (Auto) 5.2 Eos % (Auto) 1.5 Baso % (Auto) 0.5 Absolute Neuts (auto) 11.4 H Absolute Lymphs (auto) 2.67 Nucleated RBC % 0 Sodium 142 Potassium 4.3 Chloride 107 Carbon Dioxide 30.0 Anion Gap 5 BUN 22 H Creatinine 1.03 H Estim Creat Clear Calc 45.36 Est GFR (MDRD) Af Amer 70 Est GFR (MDRD) Non-Af 58 L BUN/Creatinine Ratio 21.4 H Glucose 91 Calcium 9.2 - Medical Decision Making CT soft neck tissues was performed without contrast since patient only has one kidney left and is status post nephrectomy, and luckily was able to decipher the fact that the parotid is swollen and inflamed as opposed to just simply periauricular lymph nodes. It is nonpurulent since she does not have any pus emanating from Stensen's duct with palpation, and there is no sialolith. I discussed with Dr. Temple who was on-call for infectious disease, who does not think that this is necessarily a result of the COVID-19 vaccine, and agrees with treating for possible bacterial etiologies, and recommends Augmentin since she does not have a penicillin allergy. Patient was given a dose of IV Unasyn here, and will be offered analgesics in addition to prescription for Augmentin and I recommend outpatient PCP follow-up. ED Disposition - Plan for ED Patient: Disposition: Home or Assisted Living Diagnosis: Acute parotitis Instructions: ED Salivary Gland Infection Prescriptions: Amox/Clavulanate Tablet [Augmentin Tablet] 875 mg PO Q12H #20 tab Transmission Status: Pending to [place] [id number] [facility] Referrals: Shine Gibson MD [Primary Care Provider] - 5-7 Days
[2020-06-19 19:09] VITALS: BP 112/73; PULSE 87; RESP 16; TEMP 36.7; O2SAT 96
[2020-06-19 19:47] LABS: Absolute Lymphocyte Count 2.67 X10^3/uL (0.83-4.51); Absolute Neutrophil Count 11.4 X10^3/uL (2.0-7.7); Basophil# 0.08 X10^3/uL; Basophil% 0.5 % (0-1); Eosinophil# 0.23 X10^3/uL; Eosinophils% 1.5 % (0-5); Hematocrit 45.3 % (37-47); Hemoglobin 15.1 g/dL (12.0-15.0); Lymphocyte # 2.67 X10^3/ul (4.0); Lymphocyte % 17.6 % (19-41); Mean Corp Hgb Conc 33.3 g/dL (32-36); Mean Corpuscular Hgb 30.8 pg (27.0-32.0); Mean Corpuscular Volume 92.3 fL (81-99); Mean Platelet Vol. 9.8 fl (6.2-12.0); Monocyte# 0.79 X10^3/uL; Monocyte% 5.2 % (0-10); NRBC Flagged by Analyzer 0 % (0-5); Neutrophil # 11.38 X10^3/uL (2.7-7.7); Neutrophil % 74.9 % (47-70); Platelet Count 239 K/mm3 (150-450); RBC Distribution Width CV 13.2 % (11.6-14.6); Red Blood Count 4.91 M/mm3 (4.2-5.4); White Blood Count 15.2 K/mm3 (4.4-11.0)
[2020-06-19 20:03] LABS: Anion Gap 5 (5-15); BUN 22 mg/dL (7-18); BUN/Creat Ratio 21.4 RATIO (10-20); Calcium,Total 9.2 mg/dL (8.5-10.1); Chloride 107 mmol/L (98-107); Creatinine, Serum 1.03 mg/dL (0.55-1.02); EST Glomerular Filtration Rate 58 mL/min (>60); Est Glom Filt Rate - Afr Amer 70 mL/min (>60); Estimated Creatinine Clearance 45.36 ml/min; Glucose 91 mg/dL (74-106); Potassium 4.3 mmol/L (3.5-5.1); Sodium Level 142 mmol/L (136-145)
[2020-06-19 20:10] VITALS: BP 115/78; PULSE 82; RESP 18; TEMP 36.7; O2SAT 98
[2020-06-19 20:15] VITALS: PULSE 84; RESP 18; O2SAT 97
[2020-06-19 21:57] VITALS: PULSE 72; RESP 16; O2SAT 98
== END 2020-06-19 21:58 | disposition home or self-care (01) ==
PROVIDERS: Emergency Provider Emergency Medicine; PCP Family Medicine
DX: K11.21 Acute sialoadenitis (principal); E78.5 Hyperlipidemia, unspecified; K21.9 Gastro-esophageal reflux disease without esophagitis; F17.200 Nicotine dependence, unspecified, uncomplicated; Z79.899 Other long term (current) drug therapy
CPT/HCPCS: 70490; 80048; 85025; 96365; 99283; J7050; A4216; J0295

== ENCOUNTER → 2020-06-28 11:13 | Outpatient (CLI) | payer OTHER, SELFPAY ==
[2020-06-19 18:16] VITALS: BMI 28.1
[2020-06-28 12:55] LABS: T4 Free Direct 1.35 ng/dL (0.76-1.46); Thyroid Stim Hormone (TSH) 0.82 uIU/mL (0.358-3.74)
[2020-06-29 20:30] LABS: Anti-Thyroglobulin AB < 1.0 IU/mL (0.0-0.9); Thyroglobulin, Serum Qt. 21.1 ng/mL (1.5-38.5); Thyroid Peroxidase AB < 9 IU/mL (0-34)
== END ==
PROVIDERS: PCP Family Medicine; Referring Provider Family Medicine; Visit Provider Family Medicine
DX: E04.1 Nontoxic single thyroid nodule (principal)
CPT/HCPCS: 36415; 84432; 84439; 84443; 86376; 86800

== ENCOUNTER → 2020-07-04 12:47 | Outpatient (CLI) | payer OTHER, SELFPAY ==
[2020-06-19 18:16] VITALS: BMI 28.1
--- NOTE | 2020-07-04 12:52 | US_ITS ---
STUDY: THYROID ULTRASOUND REASON FOR EXAM: Female, 60 years old. NODULE TECHNIQUE: Ultrasound evaluation of the thyroid was performed with real-time and static pickett-scale imaging. COMPARISON: None. FINDINGS: RIGHT LOBE: The right lobe of the thyroid gland measures 5.2 x 2.7 x 1.9 cm. There is a homogeneous echotexture. Multiple small nodules, complex nodule in the upper pole measuring 8 x 6 x 5 mm with a solid nodule in the midpole region measuring 7 x 8 x 7 mm. LEFT LOBE: The left lobe of the thyroid gland measures 4.7 x 2.2 x 1.6 cm. There is a homogeneous echotexture. Several nodules, complex nodule measuring 9 x 8 x 7 mm in the midpole region. ISTHMUS: The isthmus measures 3 mm. The regional lymph nodes are normal. US/Thyroid IMPRESSION: Bilateral subcentimeter nodules as detailed above. Otherwise, unremarkable exam Electronically Signed: Salvatore Rizvi DO at 23:59 EDT Tel , Service support ,
== END ==
PROVIDERS: PCP Family Medicine; Referring Provider Family Medicine; Visit Provider Family Medicine
DX: E04.1 Nontoxic single thyroid nodule (principal)
CPT/HCPCS: 76536

== ENCOUNTER → 2020-07-31 08:18 | Outpatient (CLI) | payer OTHER, SELFPAY ==
[2020-07-31 10:34] LABS: Hemoglobin A1c 5.6 % (3.8-5.6)
[2020-07-31 10:38] LABS: ALB/GLOB Ratio 0.8 RATIO (0.9-2.4); AST(SGOT) 20 U/L (15-37); Alanine Aminotransfer ALT/SGPT 27 U/L (13-56); Albumin, Serum 3.3 g/dL (3.2-5.0); Alkaline Phosphatase 70 U/L (45-117); Anion Gap 5 (5-15); BUN 25 mg/dL (7-18); BUN/Creat Ratio 32.6 RATIO (10-20); Chloride 108 mmol/L (98-107); Cholesterol 204 mg/dL (200); Creatinine, Serum 0.77 mg/dL (0.55-1.02); EST Glomerular Filtration Rate 81 mL/min (>60); Est Glom Filt Rate - Afr Amer 98 mL/min (>60); Glucose 110 mg/dL (74-106); High Density Lipoprotein 67 mg/dL; Protein, Total 7.3 g/dL (6.4-8.2); Sodium Level 139 mmol/L (136-145); Triglycerides 121 mg/dL; Very Low Density Lipoprotein 24 mg/dL (5-40)
== END ==
PROVIDERS: PCP Family Medicine; Referring Provider Family Medicine; Visit Provider Family Medicine
DX: E78.5 Hyperlipidemia, unspecified (principal); R73.02 Impaired glucose tolerance (oral)
CPT/HCPCS: 36415; 80053; 80061; 83036

== ENCOUNTER 2020-08-22 16:00 | Outpatient (RCR) | payer OTHER, SELFPAY ==
--- NOTE | 2020-07-31 11:51 | HP.PTEVAL_ITS ---
Patient's Visit Information ЕКАТЕРИНА RO is a 60 year old F referred to Physical Therapy by Dr. Shine Gibson MD with a diagnosis of vestibular. Date of Evaluation: 07/31/20 Physical Therapist: PARMINDER Horner - Visit Plan Frequency: 1-2x /Week Duration: 4 Weeks Plan: 5 visits for BPPPV to reposition crystals - Subjective Her daughter thinks that it is moving crystals again. She had it 12 years ago... she had a huge operation and passed out due to low pressure and passed out and passed.(probably hit her head)..... Dr Buster Swain put her crystals back in a couple of months after that fall and then it happened a few months later and has been fine until recently and has no idea why it happened again. Her GP did a quick screen and tried to put them back into place and it came back and the Dr said to go to therapy. It seems to be when she puts her head back at the salon and if she turns on her R side... not always but a lot of the time. She walks around with her head pretty straight. - Objective + R Hallpike for upward torsional nystagmus and dizziness that lasted about 30 complete seconds..... Treated with R EPLY from the R Hallpike position. When pt sat up from the EPLY she was lightheaded and needed to sit for a few minutes and have a cold drink of water. Re-tested R Hallpike and was positive for upward torsional nystagmus ..... treated with R EPLY less intense nystagmus and less time. Re-tested R Hallpike and positive for upward torsional nystagmus. Re tested R Hallpike again (4th time) and pt still had upward torsional nystagmus for about 15 seconds... treated with R EPLY again. Pt walked out feeling a lightheadedness.... - Goals Goal 1:: I HEP Goal Time Frame: 2-4 Weeks Goal 2:: Abolish dizziness Goal Time Frame: 2-4 Weeks Goal 3:: Be able to roll over on the R side without dizziness Goal Time Frame: 2-4 Weeks Goal 4:: Be able to get her hair washed without having dizziness Goal Time Frame: 2-4 Weeks - Rehabilitation Potential Rehabilitation Potential: Good - Anticipated Interventions Patient/Client Instruction: Educate patient on: Condition, Plan of Care For the Purpose of:: To increase ROM, To improve nutrient delivery to tissue, To improve ability to perform ADL's, To increase tolerance to activity/condition/position, To improve performance and independence with ADL's, To decrease level of supervision to perform tasks, To improve ability of physical actions for home/community/work/leisure, To improve health of tissue, To improve balance, To improve safety with gait Therapeutic Exercise to Include: Balance training, Neuromotor development, Passive ROM, Active ROM For the Purpose of:: To increase ROM, To improve nutrient delivery to tissue, To improve muscle performance and motor function, To increase tolerance to activity/condition/position, To improve performance and independence with ADL's, To improve gait and locomotor functions, To improve health of tissue, To decrease soft tissue restriction, To improve balance, To improve safety with gait Manual Therapy Techniques to Include: Other Comment: EPLY For the Purpose of:: To improve nutrient delivery to tissue, To increase tolerance to activity/condition/position, To improve performance and independence with ADL's, To decrease level of supervision to perform tasks, To improve ability of physical actions for home/community/work/leisure, To improve health of tissue, To decrease soft tissue restriction, To increase flexibility/ROM, To improve balance, To improve safety with gait Thank you for the opportunity to evaluate your patient. For Medicare and Medicare HMO plans, please review the plan of care and approve it. It will need to be FAXED BACK to us at [phone] for Medicare purposes. For Medicare only, by signing this I certify the plan of care. Please let me know if there are questions or concerns regarding this plan of care. Physician Signature: D ate:
--- NOTE | 2020-12-14 09:44 | HP.PT.NRP ---
ЕКАТЕРИНА RO was seen in my office for initial evaluation on 07/31/20. The following Plan of Care was established for this patient: Initial Frequency: 1-2x /Week Initial Duration: 4 Weeks Patient/Client Instruction: Educate patient on: Condition, Plan of Care For the Purpose of:: To increase ROM, To improve nutrient delivery to tissue, To improve ability to perform ADL's, To increase tolerance to activity/condition/position, To improve performance and independence with ADL's, To decrease level of supervision to perform tasks, To improve ability of physical actions for home/community/work/leisure, To improve health of tissue, To improve balance, To improve safety with gait Therapeutic Exercise to Include: Balance training, Neuromotor development, Passive ROM, Active ROM For the Purpose of:: To increase ROM, To improve nutrient delivery to tissue, To improve muscle performance and motor function, To increase tolerance to activity/condition/position, To improve performance and independence with ADL's, To improve gait and locomotor functions, To improve health of tissue, To decrease soft tissue restriction, To improve balance, To improve safety with gait Manual Therapy Techniques to Include: Other Comment: EPLY For the Purpose of:: To improve nutrient delivery to tissue, To increase tolerance to activity/condition/position, To improve performance and independence with ADL's, To decrease level of supervision to perform tasks, To improve ability of physical actions for home/community/work/leisure, To improve health of tissue, To decrease soft tissue restriction, To increase flexibility/ROM, To improve balance, To improve safety with gait This patient was last seen in our office 08/22/20. Pertinent comments regarding their Physical therapy will appear below: LIO PT as pt cancelled her last appointment At this point I will be discontinuing this patient from physical therapy. I would be happy to see this patient again in the future if found appropriate by the physician. Thank you! Melissa Austin, MPT Balance/Gait/Functional tests - Balance/Special Test Scores Dizziness Score: 26
== END 2020-08-22 19:00 | disposition home or self-care (01) ==
LOC: PT 16:00
PROVIDERS: PCP Family Medicine; Referring Provider Family Medicine; Visit Provider Family Medicine
DX: H81.10 Benign paroxysmal vertigo, unspecified ear (principal)
CPT/HCPCS: 97161; 97530

== ENCOUNTER 2020-10-16 18:11 | Emergency (ER) | payer OTHER, SELFPAY ==
[2020-10-16 18:12] VITALS: BP 116/75; PULSE 91; RESP 18; TEMP 36.5; O2SAT 95; BMI 27.8
--- NOTE | 2020-10-16 18:29 | CT_ITS ---
STUDY: CT ABDOMEN AND PELVIS WITH CONTRAST REASON FOR EXAM: Female, 60 years old. LUQ Pain. History of renal cell carcinoma and left nephrectomy. RADIATION DOSAGE (If Supplied By Facility): CTDIvol = ( 15.83 ) mGy, DLP = ( 898.34 ) mGycm TECHNIQUE: Transaxial images were obtained from the dome of the diaphragm to the symphysis pubis without oral contrast. IV 75mL Isovue-300 was administered. Sagittal and coronal images were reconstructed. Individualized dose optimization techniques were used for this CT. COMPARISON: Comparison is made with prior examination 01/10/2019. FINDINGS: There is a 6 mm noncalcified nodule in the posterior medial segment of the right lower lobe. This was not imaged on prior examination. Coronary artery calcification. Mild degree of the central intrahepatic biliary ductal dilatation. This is unchanged. There are surgical clips in the gallbladder fossa consistent with a prior cholecystectomy. Normal spleen. Normal pancreas. Normal bilateral adrenal glands. Stable small right renal cysts. The patient is status post left nephrectomy. Normal visualized stomach. Once again, there is a 2.5 cm x 1.1 cm fatty polypoid abnormality in the second portion of the duodenum. The second portion of the duodenum. There are multiple colonic diverticula consistent with diverticulosis. The patient is status post appendectomy. There is scattered atherosclerotic calcification of the abdominal aorta, without a demonstrated aneurysm. Normal inferior vena cava. Normal retroperitoneum. Normal urinary bladder. There is a 3.7 cm x 2.9 cm soft tissue density in the left pelvis. This most likely represents an enlarged left ovary. This has increased in size as compared to prior study. There now is evidence of a 2.4 cm cyst within its medial aspect. Correlation with the pelvic sonogram is recommended. Normal abdominal wall. There are diffuse degenerative changes of the visualized lumbar spine. CT/Abdomen/Pelvis W IV Cont ONLY IMPRESSION: Status post cholecystectomy with central intrahepatic biliary ductal dilatation. 2.5 cm x 1.1 cm fatty polypoid lesion in the second portion of the duodenum. Findings suggestive of enlarged left ovary containing a cyst. Correlation with pelvic ultrasound is recommended. Electronically Signed: Keny Branch MD at 20:53 EDT , Service support ,
--- NOTE | 2020-10-16 18:32 | EDS_ITS ---
HPI History of Present Illness Chief Complaint: Abd Pain Narrative Narrative: 60-year-old female presenting with left upper quadrant pain. Patient states this started on Thursday. She has a history of diverticulitis. She has nausea with no vomiting. She denies diarrhea or constipation. History of previous cholecystectomy, left nephrectomy, and appendectomy. Denies fever. Denies chest pain or shortness of breath. Denies other complaints. Prior similar symptoms: Yes Recent Illness/Hospitalization: No PFSH PFSH Medical History (Updated 10/16/20 @ 22:[address] Deyanira Barth MD) Abdominal pain Abnormal CT scan, gastrointestinal tract Chronic gastritis Diverticulosis Gastric ulcer GERD (gastroesophageal reflux disease) GERD with esophagitis Hiatal hernia Hyperlipidemia Sacroiliitis Tobacco abuse Home Medications omeprazole 20 mg capsule,delayed release 20 mg PO DAILY 02/03/19 [History Last Taken 02/08/19 05:00] rosuvastatin 10 mg tablet 10 mg PO QHS #30 tab 02/03/19 [History Last Taken Unknown] Allergy/AdvReac Type Severity Reaction Status Date / Time No Known Allergies Allergy Verified 10/16/20 18:11 Family History Father Myocardial infarction Heart disease Colon cancer Mother Cancer duodenal Surgical History History of appendectomy History of cholecystectomy History of colonoscopy (~2015) History of esophagogastroduodenoscopy (EGD) (~2008) History of left nephrectomy history of lysis of adhesions History of tubal ligation Social History (Updated 02/17/19 @ 10:[address] Lee Zuniga MD) Smoking Status: Current every day smoker tobacco type: cigarettes ROS ROS ED Constitutional Constitutional ED: Denies fever(s) Eyes Eyes: Denies change in vision ENT ENT ED: Denies rhinorrhea or sore throat Cardiovascular Cardiovascular: Denies chest pain or palpitations Respiratory/Chest Respiratory/Chest: Denies cough or dyspnea Gastrointestinal Gastrointestinal: Reports abdominal pain and nausea; Denies constipation, diarrhea or vomiting Genitourinary Genitourinary ED: Denies dysuria Musculoskeletal Musculoskeletal: Denies myalgias Integumentary Denies rash Neurologic Neurologic: Denies headache(s) Psychiatric Psychiatric: Denies suicidal thoughts EXAM Physical Exam Const Vital Signs: 10/16/20 18:12 10/16/20 20:49 Temperature 97.7 F L Temperature Source Temporal Pulse Rate 91 74 Respiratory Rate 18 16 Blood Pressure 116/75 112/68 Blood Pressure Mean 88 82 Pulse Ox 95 96 Oxygen Delivery Method Room Air Room Air Positive well nourished and well developed General Appearance ED: well developed HEENT Reports normocephalic and head/scalp atraumatic Eyes PERRL and EOMs intact bilaterally Neck supple General: Negative for tenderness Chest Wall inspection of chest normal Resp normal respiratory effort and clear to auscultation bilaterally Cardio regular rate and regular rhythm GI non-distended Palpation: soft and tender LUQ; Negative for guarding or rebound tenderness present no CVA tenderness Extremity normal to inspection Neuro oriented x3 Sensorium / Orientation: alert Psych mental status grossly normal MDM MDM MDM Narrative Medical decision making narrative: Patient was given IV fluids, morphine, Zof ran. While in the ED, the patient started having abdominal pain again and she states the pain radiated to her chest. EKG was obtained which showed sinus bradycardia rate of 51 with no acute ischemic changes. Troponin was added on and was negative. Those symptoms subsided when her abdominal pain improved. CT abdomen pelvis showed status post cholecystectomy, polypoid lesion in the duodenum similar to previous, recommending pelvic ultrasound for enlarged left ovary. Pelvic ultrasound shows 2.7 x 2.6 x 1.4 cm left ovarian cyst. On reevaluation, patient is resting comfortably. She declined medication for pain. She will follow-up with her GI physician. Advised follow-up with [facility]. She is advised return to ED for worsening complaints. Lab Data Attestation: I reviewed the patient's lab results. Labs: Laboratory Results - last 24 hr 10/16/20 10/16/20 10/16/20 18:37 18:37 18:37 WBC 11.4 H RBC 5.30 Hgb 15.7 H Hct 48.0 H MCV 90.6 MCH 29.6 MCHC 32.7 RDW Std Deviation 42.4 RDW Coeff of Citlali 12.9 Plt Count 243 MPV 9.8 Immature Gran % (Auto) 0.400 Neut % (Auto) 62.5 Lymph % (Auto) 29.8 [place] % (Auto) 4.8 Eos % (Auto) 1.8 Baso % (Auto) 0.7 Absolute Neuts (auto) 7.1 Absolute Lymphs (auto) 3.40 Nucleated RBC % 0 Sodium 141 Potassium 3.7 Chloride 108 H Carbon Dioxide 25.0 Anion Gap 8 BUN 21 H Creatinine 0.98 Estim Creat Clear Calc 47.68 Est GFR (MDRD) Af Amer 74 Est GFR (MDRD) Non-Af 61 BUN/Creatinine Ratio 21.3 H Glucose 84 Calcium 8.9 Total Bilirubin 0.30 AST 15 ALT 26 Alkaline Phosphatase 79 Troponin I High Sens 4.8 Total Protein 7.4 Albumin 3.6 Globulin 3.8 Albumin/Globulin Ratio 0.9 Lipase 128 Urine Color Urine Clarity Urine pH Ur Specific [place] Urine Protein Urine Glucose (UA) Urine Ketones Urine Occult Blood Urine Nitrite Urine Bilirubin Urine Urobilinogen Ur Leukocyte Esterase Urine RBC Urine WBC Ur Squamous Epith Cells Urine Bacteria Urine Mucus 10/16/20 18:45 WBC RBC Hgb Hct MCV MCH MCHC RDW Std Deviation RDW Coeff of Citlali Plt Count MPV Immature Gran % (Auto) Neut % (Auto) Lymph % (Auto) [place] % (Auto) Eos % (Auto) Baso % (Auto) Absolute Neuts (auto) Absolute Lymphs (auto) Nucleated RBC % Sodium Potassium Chloride Carbon Dioxide Anion Gap BUN Creatinine Estim Creat Clear Calc Est GFR (MDRD) Af Amer Est GFR (MDRD) Non-Af BUN/Creatinine Ratio Glucose Calcium Total Bilirubin AST ALT Alkaline Phosphatase Troponin I High Sens Total Protein Albumin Globulin Albumin/Globulin Ratio Lipase Urine Color Yellow Urine Clarity Clear Urine pH 6.0 Ur Specific [place] 1.010 Urine Protein 30 H Urine Glucose (UA) Normal Urine Ketones Negative Urine Occult Blood 150 H Urine Nitrite Negative Urine Bilirubin Negative Urine Urobilinogen Normal Ur Leukocyte Esterase Negative Urine RBC 0-5 SEEN Urine WBC 0 SEEN Ur Squamous Epith Cells 0-5 SEEN Urine Bacteria RARE Urine Mucus 0 SEEN Radiography Diagnostic Testing: Radiology Impression Abdomen/Pelvis CT 10/16/20 18:29 IMPRESSION: Status post cholecystectomy with central intrahepatic biliary ductal dilatation. 2.5 cm x 1.1 cm fatty polypoid lesion in the second portion of the duodenum. Findings suggestive of enlarged left ovary containing a cyst. Correlation with pelvic ultrasound is recommended. Electronically Signed: Keny Branch MD at 20:53 EDT , Service support , Transvaginal US 10/16/20 21:00 IMPRESSION: 2.7 cm x 2.6 x 1.4 cm cyst in the left ovary. Electronically Signed: Keny Branch MD at 22:02 EDT , Service support , Discharge Plan Triage Chief Complaint: Abd Pain ED Provider: Deyanira Barth Dx/Rx/DC Orders Clinical Impression: Abdominal pain in female Instructions: Abdominal Pain Prescriptions: No Action omeprazole 20 mg capsule,delayed release(DR/EC) 20 mg PO DAILY RF: 0 rosuvastatin 10 mg tablet 10 mg PO QHS Qty: 30 RF: 0 Primary Care Provider: Shine Gibson Referrals: Shine Gibson MD [Primary Care Provider] - Disposition Disposition: Home, Self Care
[2020-10-16] MEDS: Ondansetron 4 MG/2 ML Vial IV ×2 (18:42→19:41)
[2020-10-16] MEDS: Morphine 4 MG/ML Syringe IV (18:42)
[2020-10-16 18:51] LABS: Absolute Neutrophil Count 7.1 X10^3/uL (2.0-7.7); Basophil# 0.08 X10^3/uL; Basophil% 0.7 % (0-1); Eosinophil# 0.21 X10^3/uL; Eosinophils% 1.8 % (0-5); Hemoglobin 15.7 g/dL (12.0-15.0); Lymphocyte % 29.8 % (19-41); Mean Corp Hgb Conc 32.7 g/dL (32-36); Mean Corpuscular Hgb 29.6 pg (27.0-32.0); Mean Corpuscular Volume 90.6 fL (81-99); Mean Platelet Vol. 9.8 fl (6.2-12.0); Monocyte# 0.55 X10^3/uL; Monocyte% 4.8 % (0-10); NRBC Flagged by Analyzer 0 % (0-5); Neutrophil # 7.13 X10^3/uL (2.7-7.7); Neutrophil % 62.5 % (47-70); Platelet Count 243 K/mm3 (150-450); RBC Distribution Width CV 12.9 % (11.6-14.6); RBC Distribution Width SD 42.4 fl (35.1-43.9); White Blood Count 11.4 K/mm3 (4.4-11.0)
[2020-10-16 18:55] LABS: Mucous, Urine 0 SEEN /hpf (<or=2+); White Blood Cells 0 SEEN /hpf (0-5)
[2020-10-16 18:58] LABS: Color, Urine Yellow (Yellow); Glucose, Dipstick Normal (Normal); Ketone-Dipstick Negative (Negative); Leukocyte Esterase-Dipstick Negative /ul (Negative); Nitrite-Dipstick Negative (Negative); Occult Blood-Urine 150 /ul (Negative); Protein-Dipstick 30 mg/dl (Negative); Urine Bilirubin Dipstick Negative (Negative); Urine Clarity Clear (Clear); Urine Urobilinogen Normal (Normal)
[2020-10-16 19:10] LABS: ALB/GLOB Ratio 0.9 RATIO (0.9-2.4); AST(SGOT) 15 U/L (15-37); Alanine Aminotransfer ALT/SGPT 26 U/L (13-56); Albumin, Serum 3.6 g/dL (3.2-5.0); Alkaline Phosphatase 79 U/L (45-117); Anion Gap 8 (5-15); BUN 21 mg/dL (7-18); BUN/Creat Ratio 21.3 RATIO (10-20); Calcium,Total 8.9 mg/dL (8.5-10.1); Chloride 108 mmol/L (98-107); Creatinine, Serum 0.98 mg/dL (0.55-1.02); EST Glomerular Filtration Rate 61 mL/min (>60); Est Glom Filt Rate - Afr Amer 74 mL/min (>60); Estimated Creatinine Clearance 47.68 ml/min; Globulin 3.8 g/dL (2.2-4.2); Glucose 84 mg/dL (74-106); Lipase 128 U/L (73-393); Potassium 3.7 mmol/L (3.5-5.1); Protein, Total 7.4 g/dL (6.4-8.2); Sodium Level 141 mmol/L (136-145)
[2020-10-16] MEDS: Morphine 4 MG/ML Syringe IM (19:41)
--- NOTE | 2020-10-16 19:45 | ED.RN ---
PATITN COMMPLAINS OF PAIN IN ABDOMEN AND STATES CRAMPING AND DIFFERENT. MEDS GIVEN AND CT WAITING ON TIME TO TAKE AFFECT. ECG CALLED TO BE SAFE PATIENT STATES GOING INTO CHEST.
--- NOTE | 2020-10-16 19:47 | EKG12_ITS ---
Test Reason : CP Blood Pressure : / mmHG Vent. Rate : 051 BPM Atrial Rate : 051 BPM P-R Int : 120 ms QRS Dur : 086 ms QT Int : 434 ms P-R-T Axes : 043 042 042 degrees QTc Int : 400 ms Sinus bradycardia Otherwise normal ECG Confirmed by WALT BANEGAS, EMILIANA ([id number]), supervisor chassis assembly [email or web address] RENTERIA ([id number]) on 10/19/2020 10:03:03 AM Referred By: Confirmed By:EMILIANA GODOY MD
[2020-10-16 20:03] LABS: Bacteria RARE /hpf (None Seen); Red Blood Cells-Urine 0-5 SEEN /hpf (0-5); Squamous Epithelial Cells - UA 0-5 SEEN /hpf (5-10)
[2020-10-16 20:13] LABS: Troponin-I HS 4.8 pg/mL (3.0-53.7)
[2020-10-16 20:49] VITALS: BP 112/68; PULSE 74; RESP 16; O2SAT 96
--- NOTE | 2020-10-16 21:00 | US_ITS ---
STUDY: ULTRASOUND OF THE FEMALE PELVIS - COMPLETE REASON FOR EXAM: Female, 60 years old. Left abd pain LMP: Patient is postmenopausal. TECHNIQUE: Transvaginal TECHNICAL QUALITY: Adequate. COMPARISON: Comparison made with prior CT scan of the abdomen and pelvis done earlier today. FINDINGS: The uterus is anteverted and is in a midline position. The uterus measures 6.1 cm x 3.5 cm x 2.8 cm. Normal uterine cervix. The endometrium measures 2 mm in thickness, and is hyperechoic. There is no demonstrated endometrial mass. There is no demonstrated myometrial mass. I.U.D. - The patient does not have an I.U.D. The right ovary is non-visualized. The left ovary is visualized. The left ovary measures 3.9 cm x 3.3 cm x 1.9 cm. There is a 2.7 cm x 2.6 cm x 1.4 cm cyst in the left ovary. There is no visualized left adnexal mass or complex lesion. There is normal arterial and normal venous vascularity. There is no fluid in the cul-de-sac. US/Transvaginal Non- IMPRESSION: 2.7 cm x 2.6 x 1.4 cm cyst in the left ovary. Electronically Signed: Keny Branch MD at 22:02 EDT , Service support ,
== END 2020-10-16 22:41 | disposition home or self-care (01) ==
PROVIDERS: Emergency Provider Emergency Medicine; PCP Family Medicine
DX: R10.12 Left upper quadrant pain (principal); N83.202 Unspecified ovarian cyst, left side; K21.00 Gastro-esophageal reflux disease with esophagitis, without bleeding; E78.5 Hyperlipidemia, unspecified; F17.210 Nicotine dependence, cigarettes, uncomplicated; Z79.899 Other long term (current) drug therapy
CPT/HCPCS: 74177; 76830; 80053; 81001; 83690; 84484; 85025; 93005; 93976; 96361; 96372; 96374; 96375; 96376; 99284; J7040; Q9967; A4216; J2405

== ENCOUNTER → 2020-11-05 | Outpatient (CLI) | payer OTHER, SELFPAY ==
[2020-10-16 18:12] VITALS: BMI 27.8
== END | disposition home or self-care (01) ==
LOC: LABSPEC 13:42
PROVIDERS: PCP Family Medicine; Referring Provider Family Medicine; Visit Provider Family Medicine
DX: Z20.822 Contact with and (suspected) exposure to COVID-19 (principal); R05 Cough
CPT/HCPCS: 87633; 87635; U0005; U0003

== ENCOUNTER → 2020-11-19 12:50 | Outpatient (CLI) | payer OTHER, SELFPAY ==
--- NOTE | 2020-11-19 12:54 | CT_ITS ---
STUDY: CT CHEST WITHOUT CONTRAST REASON FOR EXAM: Female, 60 years old. PULMONARY NODULE RADIATION DOSAGE (If Supplied By Facility): CTDIvol = ( 6.05 ) mGy, DLP = ( 196.99 ) mGycm TECHNIQUE: Transaxial imaging was performed without the administration of intravenous contrast material. Multiplanar coronal and sagittal images were reformatted. Individualized dose optimization techniques were used for this CT. COMPARISON: Comparison is made with prior CT scan of the abdomen and pelvis dated 10/16/2020. FINDINGS: There is a 5 mm noncalcified nodule in the posterior medial segment of the right lower lobe as seen on axial image #65. This is unchanged. There is no demonstrated pleural abnormality. There are calcifications of the coronary arteries. There are multiple small lymph nodes within the mediastinum, which are normal in size and morphology most compatible with reactive lymph hyperplasia. Normal hilar regions. Normal unenhanced pulmonary arteries. There is mild degree of atherosclerotic calcification of the aortic arch . There are multi-level degenerative changes of the thoracic spine. There is no demonstrated abnormality of the visualized upper abdomen. CT/Chest without Contrast IMPRESSION: Stable 5 mm noncalcified nodule in the posterior medial segment of the right lower lobe. A follow-up CT scan in 12 months is recommended. Electronically Signed: Keny Branch MD at 14:16 EDT , Service support ,
== END ==
PROVIDERS: PCP Family Medicine; Referring Provider Family Medicine; Visit Provider Family Medicine
DX: R91.1 Solitary pulmonary nodule (principal)
CPT/HCPCS: 71250

== ENCOUNTER → 2020-11-30 12:22 | Outpatient (CLI) | payer OTHER, SELFPAY ==
--- NOTE | 2020-11-30 12:25 | US_ITS ---
INDICATION: LFT OVARY CYST EXAMINATION: Ultrasound US Transvaginal Non-OB TECHNIQUE: Transvaginal (for optimal evaluation of the adnexa) pelvic ultrasound was performed. Grayscale, spectral waveform, and color flow Doppler evaluation of the adnexa. COMPARISON: 10/16/2020.. FINDINGS: UTERUS: Uterus is anteverted in position demonstrating unremarkable echogenicity with no evidence of hypoechoic masses, unremarkable vascularity.. The endometrial stripe measures 0.2 cm in AP diameter which is within normal limits. No evidence of fluid polyps or masses within the endometrial cavity. RIGHT OVARY: Non-enlarged, normal echogenicity. There is normal arterial inflow and venous outflow present in the right ovary. The right ovary measures 1.3 x 0.7 x 0.5 cm. LEFT OVARY: Non-enlarged, normal echogenicity. There is normal arterial inflow and venous outflow present in the left ovary. The left ovary measures 5.2 x 2.8 x 2.2 cm demonstrating increase in comparison to the prior study where it had measured 3.9 cm x 3.3 cm x 1.9 cm. Two cysts visualized in the left ovary the largest of which is seen measuring 2.8 x 2.2 x 1.9 cm demonstrating no significant increase in comparison to the prior study where it had measured 2.7 x 2.6 x 1.4 cm, no thick internal septations visualized no prominent soft tissue component seen. FREE FLUID: None. US/Transvaginal Non- IMPRESSION: Left ovarian cysts again visualized, slight increase in size of the left ovary in comparison to the prior study.. Electronically Signed: Rosendo Powell MD at 14:11 EDT Tel , Service support ,
== END ==
PROVIDERS: PCP Family Medicine; Visit Provider Family Medicine
DX: N83.202 Unspecified ovarian cyst, left side (principal)
CPT/HCPCS: 76830

== ENCOUNTER → 2021-01-16 | Outpatient (CLI) | payer OTHER, SELFPAY | END | disposition home or self-care (01) | PROVIDERS: PCP Family Medicine; Referring Provider Family Medicine; Visit Provider Family Medicine | DX: B34.9 Viral infection, unspecified (principal) | CPT/HCPCS: 87633; 87635; U0005; U0003 ==

== ENCOUNTER → 2021-03-05 09:55 | Outpatient (CLI) | payer OTHER, SELFPAY ==
[2021-03-05 12:43] LABS: Absolute Lymphocyte Count 2.16 X10^3/uL (0.83-4.51); Absolute Neutrophil Count 6.2 X10^3/uL (2.0-7.7); Basophil# 0.05 X10^3/uL; Basophil% 0.6 % (0-1); Eosinophil# 0.15 X10^3/uL; Eosinophils% 1.7 % (0-5); Hemoglobin 15.1 g/dL (12.0-15.0); Lymphocyte # 2.16 X10^3/ul (0.83-4.51); Mean Corp Hgb Conc 32.8 g/dL (32-36); Mean Corpuscular Hgb 30.3 pg (27.0-32.0); Mean Corpuscular Volume 92.2 fL (81-99); Mean Platelet Vol. 10.5 fl (6.2-12.0); Monocyte# 0.38 X10^3/uL; Monocyte% 4.2 % (0-10); NRBC Flagged by Analyzer 0 % (0-5); Neutrophil # 6.24 X10^3/uL (2.7-7.7); Neutrophil % 69.2 % (47-70); Platelet Count 247 K/mm3 (150-450); RBC Distribution Width SD 43.6 fl (35.1-43.9); Red Blood Count 4.99 M/mm3 (4.2-5.4)
[2021-03-05 12:53] LABS: ALB/GLOB Ratio 0.7 RATIO (0.9-2.4); AST(SGOT) 17 U/L (15-37); Alanine Aminotransfer ALT/SGPT 23 U/L (13-56); Alkaline Phosphatase 67 U/L (45-117); Anion Gap 9 (5-15); BUN 19 mg/dL (7-18); BUN/Creat Ratio 22.5 RATIO (10-20); Calcium,Total 8.8 mg/dL (8.5-10.1); Chloride 111 mmol/L (98-107); Cholesterol 152 mg/dL (200); Creatinine, Serum 0.84 mg/dL (0.55-1.02); EST Glomerular Filtration Rate 73 mL/min (>60); Est Glom Filt Rate - Afr Amer 88 mL/min (>60); Globulin 4.1 g/dL (2.2-4.2); Glucose 106 mg/dL (74-106); High Density Lipoprotein 57 mg/dL; Protein, Total 7.1 g/dL (6.4-8.2); Sodium Level 141 mmol/L (136-145); Triglycerides 88 mg/dL; Very Low Density Lipoprotein 18 mg/dL (5-40)
[2021-03-05 13:09] LABS: Hemoglobin A1c 5.6 % (3.8-5.6)
== END ==
PROVIDERS: PCP Family Medicine; Referring Provider Family Medicine; Visit Provider Family Medicine
DX: E78.5 Hyperlipidemia, unspecified (principal); R73.02 Impaired glucose tolerance (oral)
CPT/HCPCS: 36415; 80053; 80061; 83036; 85025

== ENCOUNTER 2021-04-05 09:25 | Outpatient (CLI) | payer OTHER, SELFPAY | END 2021-04-05 23:59 | disposition short-term general hospital (02) | LOC: LABSPEC 09:30 | PROVIDERS: PCP Family Medicine; Referring Provider Internal Medicine Gastroenterology; Visit Provider Internal Medicine Gastroenterology | DX: R19.7 Diarrhea, unspecified (principal) | CPT/HCPCS: 83630; 87177; 87209; 87493; 87506 ==

== ENCOUNTER 2021-05-23 14:17 | Outpatient (CLI) | payer OTHER, SELFPAY ==
--- NOTE | 2021-05-23 14:20 | US_ITS ---
STUDY: THYROID ULTRASOUND REASON FOR EXAM: Female, 61 years old. Nodule TECHNIQUE: Ultrasound evaluation of the thyroid was performed with real-time and static pickett-scale imaging. COMPARISON: July 04, 2020 ultrasound thyroid FINDINGS: RIGHT LOBE: The right lobe of the thyroid gland measures 5.4 x 2.4 x 2.0 cm. There is a heterogeneous echotexture. There are several small nodules in the right thyroid. There are multiple hypoechoic nodules within the thyroid. The largest on the right is a stable mixed echogenicity nodule measuring 8.8 x 4.6 x 5.9 mm. This is similar to the prior study. There is also mixed echogenicity with some vascularity measuring 6.1 x 6.7 x 8.5 mm stable since prior study. LEFT LOBE: The left lobe of the thyroid gland measures 4.5 x 2.2 x 2.0 cm. There is a heterogeneous echotexture. There are several nodules in the left thyroid. There is stable mixed echogenicity left thyroid nodules the largest of which measures 8 x 8 x 8 mm stable when compared to the prior study allowing for measuring technique differences. There is minimal peripheral vascularity. ISTHMUS: The isthmus measures 3 mm. . The regional lymph nodes are normal. US/Thyroid IMPRESSION: Mild thyromegaly. Multinodular goiter. Bilateral multiple stable mixed echogenicity nodules stable since prior study recommend continued follow-up in 6-12 months to ensure stability. Electronically Signed: Courtney Gonzalez MD at 5:42 EST ,
--- NOTE | 2021-05-23 14:20 | CT_ITS ---
STUDY: CT CHEST WITHOUT CONTRAST REASON FOR EXAM: Female, 61 years old. Follow-up of pulmonary nodule. Patient has a history of renal cancer. RADIATION DOSAGE (If Supplied By Facility): CTDIvol = ( 8.24 ) mGy, DLP = ( 277.99 ) mGycm TECHNIQUE: Transaxial imaging was performed without the administration of intravenous contrast material. Multiplanar coronal and sagittal images were reformatted. Individualized dose optimization techniques were used for this CT. COMPARISON: Comparison is made with prior examination dated 11/19/2020. FINDINGS: Stable 4.3 mm in noncalcified nodule in the posteromedial segment of the right lower lobe. There is no demonstrated pleural abnormality. There are calcifications of the coronary arteries. Normal mediastinum. Normal hilar regions. Normal unenhanced pulmonary arteries. There is atherosclerotic calcification of the aortic arch with tortuosity and elongation of the aortic arch and descending thoracic aorta. There are multi-level degenerative changes of the thoracic spine. There is no demonstrated abnormality of the visualized upper abdomen. CT/Chest without Contrast IMPRESSION: Stable examination. Electronically Signed: Keny Branch MD at 15:34 EST ,
== END 2021-05-23 23:59 | disposition home or self-care (01) ==
LOC: CT 14:20
PROVIDERS: PCP Family Medicine; Referring Provider Family Medicine; Visit Provider Family Medicine
DX: R91.1 Solitary pulmonary nodule (principal); E04.1 Nontoxic single thyroid nodule
CPT/HCPCS: 71250; 76536

== ENCOUNTER → 2021-07-26 | Outpatient (CLI) | payer OTHER, SELFPAY ==
[2021-07-26 10:20] LABS: Absolute Lymphocyte Count 2.36 X10^3/uL (0.83-4.51); Absolute Neutrophil Count 6.2 X10^3/uL (2.0-7.7); Basophil# 0.07 X10^3/uL; Basophil% 0.8 % (0-1); Eosinophils% 2.1 % (0-5); Hematocrit 46.9 % (37-47); Hemoglobin 15.6 g/dL (12.0-15.0); Lymphocyte # 2.36 X10^3/ul (0.83-4.51); Lymphocyte % 25.3 % (19-41); Mean Corp Hgb Conc 33.3 g/dL (32-36); Mean Corpuscular Hgb 30.4 pg (27.0-32.0); Mean Corpuscular Volume 91.4 fL (81-99); Monocyte# 0.46 X10^3/uL; Monocyte% 4.9 % (0-10); NRBC Flagged by Analyzer 0 % (0-5); Neutrophil # 6.19 X10^3/uL (2.7-7.7); Neutrophil % 66.5 % (47-70); Platelet Count 239 K/mm3 (150-450); RBC Distribution Width CV 12.6 % (11.6-14.6); RBC Distribution Width SD 42.7 fl (35.1-43.9); Red Blood Count 5.13 M/mm3 (4.2-5.4); White Blood Count 9.3 K/mm3 (4.4-11.0)
[2021-07-26 11:01] LABS: Hemoglobin A1c 5.6 % (3.8-5.6)
[2021-07-26 11:02] LABS: ALB/GLOB Ratio 0.9 RATIO (0.9-2.4); AST(SGOT) 19 U/L (15-37); Alanine Aminotransfer ALT/SGPT 29 U/L (13-56); Albumin, Serum 3.2 g/dL (3.2-5.0); Alkaline Phosphatase 66 U/L (45-117); Anion Gap 4 (5-15); BUN 22 mg/dL (7-18); Calcium,Total 8.6 mg/dL (8.5-10.1); Chloride 106 mmol/L (98-107); Cholesterol 175 mg/dL (200); EST Glomerular Filtration Rate 60 mL/min (>60); Est Glom Filt Rate - Afr Amer 72 mL/min (>60); Globulin 3.7 g/dL (2.2-4.2); Glucose 112 mg/dL (74-106); High Density Lipoprotein 57 mg/dL; Potassium 4.4 mmol/L (3.5-5.1); Protein, Total 6.9 g/dL (6.4-8.2); Sodium Level 135 mmol/L (136-145); Triglycerides 105 mg/dL; Very Low Density Lipoprotein 21 mg/dL (5-40)
== END | disposition home or self-care (01) ==
LOC: MFPLAB 08:52
PROVIDERS: PCP Family Medicine; Referring Provider Family Medicine; Visit Provider Family Medicine
DX: E78.5 Hyperlipidemia, unspecified (principal); R73.02 Impaired glucose tolerance (oral)
CPT/HCPCS: 36415; 80053; 80061; 83036; 85025

== ENCOUNTER → 2021-08-01 | Outpatient (CLI) | payer OTHER, SELFPAY ==
[2021-08-01 15:36] LABS: Ferritin 125 ng/mL (8-252); Iron 74 ug/dL (50-170); Iron Binding Capacity,Total 304 ug/dL (250-450)
[2021-08-03 10:53] LABS: Transferrin 241 mg/dL (192-364)
== END | disposition home or self-care (01) ==
LOC: MFPLAB 12:01
PROVIDERS: PCP Family Medicine; Referring Provider Family Medicine; Visit Provider Family Medicine
DX: D75.1 Secondary polycythemia (principal)
CPT/HCPCS: 36415; 82728; 83540; 83550; 84466

== ENCOUNTER → 2021-12-03 | Outpatient (CLI) | payer OTHER, SELFPAY ==
--- NOTE | 2021-12-03 09:47 | RAD_ITS ---
EXAM: XR CHEST, 2 VIEWS CLINICAL INDICATION: COUGH TECHNIQUE: Frontal and lateral views of the chest. This report was created using [employer] report generation technology. COMPARISON: 07/26/2018 FINDINGS: LUNGS AND PLEURAL SPACES: Unremarkable. No consolidation or edema. No pneumothorax. No effusion. HEART: Unremarkable. Cardiac silhouette not enlarged. MEDIASTINUM: Central airways and mediastinal contour are unremarkable. BONES/JOINTS: Unremarkable. SOFT TISSUES: Unremarkable. RAD/Chest PA and Lateral IMPRESSION: No radiographic evidence of acute cardiopulmonary disease. Electronically Signed: Dez Goldstein MD at 11:39 EDT ,
== END | disposition home or self-care (01) ==
LOC: MTRAD 09:46
PROVIDERS: PCP Family Medicine; Referring Provider Family Medicine; Visit Provider Family Medicine
DX: R05.9 Cough, unspecified (principal)
CPT/HCPCS: 71046

== ENCOUNTER → 2021-12-05 | Outpatient (CLI) | payer OTHER, SELFPAY ==
--- NOTE | 2021-12-05 08:20 | BI_ITS ---
MAMMOGRAPHY - BILATERAL SCREENING REASON FOR EXAM: Female, 61 years old. Routine annual screening examination. PERTINENT HISTORY: Non-contributory. TECHNIQUE: Digital bilateral breast ruby (3D mammographic acquisition) in the CC and MLO projections. 2-D mediolateral oblique (MLO) and craniocaudad (CC) views of both breasts were obtained. CAD: Full Field Digital Mammography with Computer Added Detection was performed. COMPARISON: Comparison is made with prior outside examination dated 01/20/2014. FINDINGS: Breast Composition: There are scattered areas of fibroglandular density. There are no dominant masses or suspicious calcifications. Stable small benign-appearing bilateral axillary lymph nodes. No other significant abnormalities are identified. There has been no significant change since the prior study. BI/SCRN MAMM (CAD)W/RUBY BILAT IMPRESSION: Stable bilateral screening mammogram. Yearly follow-up mammogram recommended. (A) ASSESSMENT CATEGORY: BIRADS Category 2: Benign. A letter regarding these results will be sent to the patient by the facility within 30 days. Approximately 10% of breast cancers are not detected by mammography. A normal mammogram should not delay biopsy of a clinically suspicious abnormality. [id number] Electronically Signed: Keny Branch MD at 9:19 EDT ,
== END | disposition home or self-care (01) ==
LOC: OPBI 08:19
PROVIDERS: PCP Family Medicine; Visit Provider Family Medicine
DX: Z12.31 Encounter for screening mammogram for malignant neoplasm of breast (principal)
CPT/HCPCS: 77063; 77067

== ENCOUNTER → 2021-12-10 | Outpatient (CLI) | payer OTHER, SELFPAY ==
--- NOTE | 2021-12-10 13:30 | PFTCOMP_ITS ---
COMPLETE PULMONARY FUNCTION TEST INTERPRETATION Brief HPI: Patient is a 61-year-old female, currently under the care of Dr. Gibson, who presents to [facility] for complete pulmonary function tests secondary to diagnosis of cough. Respiratory therapist reports good effort and reproducible results. Interpretation: Forced expiration spirometry shows a mild large airways obstructive ventilatory defect with an FEV1 of 83% predicted. There is no significant bronchodilator response by strict ATS criteria. Spirograms are of good quality and plateau slowly, indicating slowly emptying areas of the lungs. The respiratory flow volume loop shows decreased expiratory flow rates at all lung volumes consistent with airway obstruction. Lung volumes by body plethysmography show a normal total lung capacity at 4.6 L, 108% predicted. All other lung volumes are within normal limits. Diffusion capacity by carbon monoxide is normal at 98% predicted. The airway resistance is normal. No previous pulmonary function tests were available for review. Impression: Irreversible mild large airways obstructive ventilatory defect with preserved lung volumes and diffusing capacity in a pattern consistent with chronic bronchitis.
== END | disposition home or self-care (01) ==
LOC: PSN 08:28
PROVIDERS: PCP Family Medicine; Referring Provider Family Medicine; Visit Provider Family Medicine
DX: R05.9 Cough, unspecified (principal)
CPT/HCPCS: 94060; 94726; 94729

== ENCOUNTER → 2021-12-13 | Outpatient (CLI) | payer OTHER, SELFPAY ==
[2021-12-13 10:57] LABS: ALB/GLOB Ratio 0.9 RATIO (0.9-2.4); AST(SGOT) 16 U/L (15-37); Alanine Aminotransfer ALT/SGPT 27 U/L (13-56); Albumin, Serum 3.5 g/dL (3.2-5.0); Alkaline Phosphatase 63 U/L (45-117); Anion Gap 8 (5-15); BUN 19 mg/dL (7-18); BUN/Creat Ratio 16.4 RATIO (10-20); Calcium,Total 8.9 mg/dL (8.5-10.1); Chloride 108 mmol/L (98-107); Creatinine, Serum 1.16 mg/dL (0.55-1.02); EST Glomerular Filtration Rate 50 mL/min (>60); Est Glom Filt Rate - Afr Amer 61 mL/min (>60); Globulin 3.8 g/dL (2.2-4.2); Glucose 104 mg/dL (74-106); Protein, Total 7.3 g/dL (6.4-8.2); Sodium Level 144 mmol/L (136-145)
== END | disposition home or self-care (01) ==
LOC: LAB 09:05
PROVIDERS: PCP Family Medicine; Referring Provider Internal Medicine Gastroenterology; Visit Provider Internal Medicine Gastroenterology
DX: R74.8 Abnormal levels of other serum enzymes (principal)
CPT/HCPCS: 36415; 80053; 82248

== ENCOUNTER → 2022-01-02 | Outpatient (CLI) | payer OTHER, SELFPAY ==
[2022-01-02 12:12] LABS: Absolute Lymphocyte Count 2.09 X10^3/uL (0.83-4.51); Absolute Neutrophil Count 4.6 X10^3/uL (2.0-7.7); Basophil# 0.06 X10^3/uL; Basophil% 0.8 % (0-1); Eosinophil# 0.12 X10^3/uL; Eosinophils% 1.6 % (0-5); Hematocrit 44.4 % (37-47); Hemoglobin 14.7 g/dL (12.0-15.0); Lymphocyte # 2.09 X10^3/ul (0.83-4.51); Lymphocyte % 28.5 % (19-41); Mean Corp Hgb Conc 33.1 g/dL (32-36); Mean Corpuscular Hgb 30.8 pg (27.0-32.0); Mean Corpuscular Volume 92.9 fL (81-99); Mean Platelet Vol. 9.4 fl (6.2-12.0); Monocyte# 0.43 X10^3/uL; Monocyte% 5.9 % (0-10); NRBC Flagged by Analyzer 0 % (0-5); Neutrophil % 62.7 % (47-70); Platelet Count 250 K/mm3 (150-450); RBC Distribution Width CV 12.1 % (11.6-14.6); RBC Distribution Width SD 41.5 fl (35.1-43.9); Red Blood Count 4.78 M/mm3 (4.2-5.4); White Blood Count 7.3 K/mm3 (4.4-11.0)
[2022-01-02 13:02] LABS: ALB/GLOB Ratio 0.8 RATIO (0.9-2.4); AST(SGOT) 21 U/L (15-37); Alanine Aminotransfer ALT/SGPT 27 U/L (13-56); Albumin, Serum 3.3 g/dL (3.2-5.0); Alkaline Phosphatase 60 U/L (45-117); Anion Gap 6 (5-15); BUN 18 mg/dL (7-18); BUN/Creat Ratio 17.8 RATIO (10-20); Calcium,Total 9.2 mg/dL (8.5-10.1); Chloride 109 mmol/L (98-107); Cholesterol 165 mg/dL (200); Creatinine, Serum 1.01 mg/dL (0.55-1.02); EST Glomerular Filtration Rate 59 mL/min (>60); Est Glom Filt Rate - Afr Amer 71 mL/min (>60); Globulin 4.1 g/dL (2.2-4.2); Glucose 110 mg/dL (74-106); High Density Lipoprotein 75 mg/dL; Potassium 4.5 mmol/L (3.5-5.1); Protein, Total 7.4 g/dL (6.4-8.2); Sodium Level 141 mmol/L (136-145); Triglycerides 90 mg/dL; Very Low Density Lipoprotein 18 mg/dL (5-40)
[2022-01-02 13:26] LABS: Hemoglobin A1c 5.5 % (3.8-5.6)
== END | disposition home or self-care (01) ==
LOC: MFPLAB 10:18
PROVIDERS: PCP Family Medicine; Referring Provider Family Medicine; Visit Provider Family Medicine
DX: E78.5 Hyperlipidemia, unspecified (principal); R73.02 Impaired glucose tolerance (oral)
CPT/HCPCS: 36415; 80053; 80061; 83036; 85025

== ENCOUNTER → 2022-01-09 | Outpatient (CLI) | payer OTHER, SELFPAY ==
[2022-01-09 10:45] LABS: Anion Gap 7 (5-15); BUN 19 mg/dL (7-18); BUN/Creat Ratio 18.8 RATIO (10-20); Chloride 104 mmol/L (98-107); Creatinine, Serum 1.01 mg/dL (0.55-1.02); EST Glomerular Filtration Rate 59 mL/min (>60); Est Glom Filt Rate - Afr Amer 71 mL/min (>60); Glucose 111 mg/dL (74-106); Potassium 4.1 mmol/L (3.5-5.1); Sodium Level 137 mmol/L (136-145)
== END | disposition home or self-care (01) ==
LOC: MFPLAB 08:41
PROVIDERS: PCP Family Medicine; Referring Provider Family Medicine; Visit Provider Family Medicine
DX: R94.4 Abnormal results of kidney function studies (principal)
CPT/HCPCS: 36415; 80048

== ENCOUNTER → 2022-05-13 | Outpatient (CLI) | payer OTHER, SELFPAY ==
--- NOTE | 2022-05-13 14:58 | CT_ITS ---
STUDY: CT CHEST WITHOUT CONTRAST REASON FOR EXAM: Female, 62 years old. PULMONARY NODULE RADIATION DOSAGE (If Supplied By Facility): CTDIvol = ( 8.58 ) mGy, DLP = ( 283.39 ) mGycm TECHNIQUE: Transaxial imaging was performed without the administration of intravenous contrast material. Multiplanar coronal and sagittal images were reformatted. Individualized dose optimization techniques were used for this CT. COMPARISON: Comparison is made with prior study dated 05/23/2019. FINDINGS: CHEST Small benign-appearing bilateral axillary lymph nodes. Since prior study, there has been an increase in size of the nodular density in the posterior medial segment of the right lower lobe. It presently measures 6 mm x 7.5 mm. Correlation with the PET scan is recommended. There is no demonstrated pleural abnormality. There are calcifications of the coronary arteries. Normal mediastinum. Normal hilar regions. Normal unenhanced pulmonary arteries. There is atherosclerotic calcification of the aortic arch. There are multi-level degenerative changes of the thoracic spine. The patient is status post cholecystectomy. CT/Chest without Contrast IMPRESSION: Interval increase in size of the previously seen nodule in the posterior medial segment of the right lower lobe as described. Correlation with a PET scan is recommended. Electronically Signed: Keny Branch MD at 15:24 EST ,
--- NOTE | 2022-05-13 14:58 | US_ITS ---
STUDY: THYROID ULTRASOUND REASON FOR EXAM: Female, 62 years old. Thyroid nodules. TECHNIQUE: Ultrasound evaluation of the thyroid was performed with real-time and static pickett-scale imaging. COMPARISON: Comparison is made with prior examination dated 05/23/2021. FINDINGS: RIGHT LOBE: The right lobe of the thyroid gland is enlarged and measures 5.3 cm x 2.5 cm x 2.4 cm. There is a heterogeneous echotexture. Once again, multiple small complex nodules are seen throughout the right lobe. The largest measures 9 mm x 8 mm x 7 mm. There has been essentially no change. LEFT LOBE: The left lobe of the thyroid gland measures 4.7 cm x 2 cm x 2 cm. There is a heterogeneous echotexture. Once again, multiple small complex nodules are seen scattered throughout the left lobe. The largest measures 8 mm x 8 mm x 8 mm. It has been no change. ISTHMUS: The isthmus measures 3.4 mm. The regional lymph nodes are normal. US/Thyroid IMPRESSION: Stable examination. Multiple subcentimeter nodules are seen in both lobes. Enlargement of the right lobe. Electronically Signed: Keny Branch MD at 15:18 EST ,
== END | disposition home or self-care (01) ==
LOC: CT 14:57
PROVIDERS: PCP Family Medicine; Referring Provider Family Medicine; Visit Provider Family Medicine
DX: E04.1 Nontoxic single thyroid nodule (principal); R91.1 Solitary pulmonary nodule
CPT/HCPCS: 71250; 76536

== ENCOUNTER → 2022-05-27 | Outpatient (CLI) | payer OTHER, SELFPAY ==
--- NOTE | 2022-05-27 11:00 | PET_ITS ---
EXAMINATION: FDG PET/CT ? INDICATIONS: 62-year-old female with a history of pulmonary nodularity. ? COMPARISON EXAMINATION: CT of the chest report 05/13/2022 ? TECHNIQUE: Following the intravenous administration of 12.13 mCi of F-18 deoxyglucose via the left antecubital fossa, multiplanar image acquisitions of the neck, chest, abdomen and pelvis to the level of the midthigh, obtained at one-hour post radiopharmaceutical administration contemporaneously interpreted with CT of the chest report dated 05/13/2022 reveal: ? SERUM GLUCOSE LEVEL:? 92 mg/dL? HEIGHT:?? 61 inches WEIGHT:?? 170 pounds ? FINDINGS: ? HEAD/NECK:? There is no evidence of abnormal increased glucose metabolism in the pharyngeal mucosal space, parapharyngeal space, oropharynx, bilateral-lateral and anterior neck, hypopharynx and distribution of the larynx. ? The visualized portion of the cerebral cortical-subcortical structures demonstrate symmetric and preserved glucose metabolism. Prominent uptake is noted at the level of the laryngeal structures associated with the cricopharyngeus musculature most consistent with physiologic tracer uptake. ? CHEST:? There is no quantitative scintigraphic evidence of abnormal increased glucose metabolism within the context of the bilateral hemithorax pulmonary parenchyma, right and left hemithorax at the pleural interface, mediastinal structures, and left-right thoracic perihilum. There is visualized radiopharmaceutical concentration noted in the left ventricular myocardium, consistent with the [place]. Prominent tracer uptake is noted in the descending thoracic aorta commensurate with activated leukocytes associated with atherosclerotic plaque formation. ? CT of the chest demonstrates the following anatomic characteristics: Noncalcified parenchymal densities noted in the right lower and right middle lobe demonstrate no evidence of increased tracer uptake. Bilateral axillary soft-tissue densities with fatty hilus formation are nonglucose avid. Atherosclerotic calcification is defined in the thoracic aorta without evidence of dilatation, aneurysm formation. Coronary artery calcification is observed. ? ABDOMEN/PELVIS:? Normal physiologic distribution of the radiopharmaceutical is identified in the hepatic and splenic parenchyma, right renal unit, urinary bladder, and visualized intestinal tract. ? CT of the abdomen and pelvis is remarkable for the following: There is metabolic, morphologic absence of the left kidney as described above. Colonic diverticulosis is noted without evidence of diverticulitis. The gallbladder is surgically absent. Atherosclerotic calcification is defined in the abdominal aorta without evidence of dilatation, aneurysm formation. Right-left inguinal soft-tissue densities are ametabolic. Calcified phlebolith formation is noted in the left lower hemipelvis. Calcification is noted in the region of the right adnexa. ? SKELETAL:? There is no evidence of quantitatively significant enhanced glucose metabolism on meticulous inspection of the appendicular and axial skeletal structures. ? Degenerative changes defined in the thoracic and lumbar spine demonstrate no evidence of increased glucose metabolism. There are no sclerotic, mixed sclerotic-lytic, or primarily lytic changes defined in the axial skeletal structures with evidence of increased FDG uptake. ? PET/PET/CT Tumor Base -Thigh Init IMPRESSION: 1. NEGATIVE EXAMINATION. There is no definitive quantitative scintigraphic evidence of viable neoplasm. 2. Metabolic, morphologic stability may be ensured in the nonglucose avid right lower and middle lobe parenchymal densities with repeat FDG PET/CT imaging and/or CT of the chest in 3-6 months to ensure stability, involution. Electronic Signature Ney Reyna D.O. Accurate Quantification of SUVs for this report are calculated using the exclusive [employer]. (U.S. Patent No. [id number] B2 [phone] [place] patent [phone]). Standardization and correction of the FDG SUV metric via [employer] technology allow for vendor non-specific objective quantitative examination comparison and optimization of the sensitivity and specificity of the FDG PET-CT examination. . Electronically Signed: Ney Reyna, at 22:46 EST ,
== END | disposition home or self-care (01) ==
PROVIDERS: PCP Family Medicine; Referring Provider Family Medicine; Visit Provider Family Medicine
DX: R91.1 Solitary pulmonary nodule (principal)
CPT/HCPCS: 78815; A9552

== ENCOUNTER → 2022-06-13 | Outpatient (CLI) | payer OTHER, SELFPAY ==
[2022-06-13 12:22] LABS: Absolute Lymphocyte Count 2.11 X10^3/uL (0.83-4.51); Absolute Neutrophil Count 4.5 X10^3/uL (2.0-7.7); Basophil# 0.07 X10^3/uL; Eosinophil# 0.17 X10^3/uL; Eosinophils% 2.4 % (0-5); Hemoglobin 14.4 g/dL (12.0-15.0); Lymphocyte # 2.11 X10^3/ul (0.83-4.51); Lymphocyte % 29.2 % (19-41); Mean Corp Hgb Conc 32.7 g/dL (32-36); Mean Corpuscular Hgb 30.3 pg (27.0-32.0); Mean Corpuscular Volume 92.6 fL (81-99); Mean Platelet Vol. 9.8 fl (6.2-12.0); Monocyte# 0.39 X10^3/uL; Monocyte% 5.4 % (0-10); NRBC Flagged by Analyzer 0 % (0-5); Neutrophil # 4.46 X10^3/uL (2.7-7.7); Neutrophil % 61.6 % (47-70); Platelet Count 254 K/mm3 (150-450); RBC Distribution Width CV 12.4 % (11.6-14.6); RBC Distribution Width SD 42.5 fl (35.1-43.9); Red Blood Count 4.75 M/mm3 (4.2-5.4); White Blood Count 7.2 K/mm3 (4.4-11.0)
[2022-06-13 12:49] LABS: Hemoglobin A1c 5.5 % (3.8-5.6)
[2022-06-13 12:52] LABS: ALB/GLOB Ratio 0.9 RATIO (0.9-2.4); AST(SGOT) 23 U/L (15-37); Alanine Aminotransfer ALT/SGPT 29 U/L (13-56); Albumin, Serum 3.3 g/dL (3.2-5.0); Alkaline Phosphatase 61 U/L (45-117); Anion Gap 6 (5-15); BUN 17 mg/dL (7-18); BUN/Creat Ratio 15.3 RATIO (10-20); Calcium,Total 8.5 mg/dL (8.5-10.1); Chloride 110 mmol/L (98-107); Cholesterol 163 mg/dL (200); Creatinine, Serum 1.11 mg/dL (0.55-1.02); EST Glomerular Filtration Rate 53 mL/min (>60); Est Glom Filt Rate - Afr Amer 64 mL/min (>60); Globulin 3.5 g/dL (2.2-4.2); Glucose 119 mg/dL (74-106); High Density Lipoprotein 59 mg/dL; Potassium 4.2 mmol/L (3.5-5.1); Protein, Total 6.8 g/dL (6.4-8.2); Sodium Level 141 mmol/L (136-145); Triglycerides 179 mg/dL; Very Low Density Lipoprotein 36 mg/dL (5-40)
== END | disposition home or self-care (01) ==
LOC: MFPLAB 10:03
PROVIDERS: PCP Family Medicine; Referring Provider Family Medicine; Visit Provider Family Medicine
DX: E78.5 Hyperlipidemia, unspecified (principal); R73.02 Impaired glucose tolerance (oral)
CPT/HCPCS: 36415; 80053; 80061; 83036; 85025

== ENCOUNTER → 2022-09-16 | Outpatient (CLI) | payer OTHER, SELFPAY ==
--- NOTE | 2022-09-16 07:44 | CT_ITS ---
INDICATION: LUNG NODULE EXAMINATION: CT CHEST WITHOUT CONTRAST - CT Chest W/O Contrast Injection TECHNIQUE: Helically acquired images were obtained of the chest. A radiation dose optimization technique was used for this scan. IV Contrast dosage and agent: None. RADIATION DOSAGE (If Supplied By Facility): CTDIvol = ( 8.40 ) mGy, DLP = ( 276.99 ) mGycm COMPARISON: May 14, 2022 FINDINGS: LUNGS, PLEURA AND LARGE AIRWAYS: There is a stable-appearing 7 mm nodule in the right lower lobe axial image 61. Additional 2 mm nodules are noted pleural-based in the right lower lobe image 61 and 63. These also appear stable. There is a 2 mm nodule in the right middle lobe appearing stable axial image 66. There is a 3 mm nodule in the right middle middle lobe axial image 77-appearing stable. There is a 2 mm nodule in the left lower lobe axial image 68-appearing unchanged. No pleural effusion or thickening. No pneumothorax. THYROID: No thyroid lesions. HEART AND PERICARDIUM: Heart size is normal. No pericardial effusion. CORONARY ARTERIES: Coronary artery calcification VESSELS: Thoracic aorta is not dilated. MEDIASTINUM AND NICOLA: No mediastinal or hilar adenopathy. Esophagus is unremarkable. No hiatal hernia. UPPER ABDOMEN: No acute pathology. BONES: No suspicious lytic or blastic abnormality. CT/Chest without Contrast IMPRESSION: Stable lung nodules as described. Electronically Signed: Bronson Washington, at 17:53 EDT Reading Location ID and State: [facility] / [place] Tel , Service support ,
== END | disposition home or self-care (01) ==
LOC: CT 07:43
PROVIDERS: PCP Family Medicine; Referring Provider Family Medicine; Visit Provider Family Medicine
DX: R91.1 Solitary pulmonary nodule (principal)
CPT/HCPCS: 71250

== ENCOUNTER → 2022-10-09 | Outpatient (CLI) | payer OTHER, SELFPAY ==
[2022-10-09 10:20] LABS: Absolute Lymphocyte Count 1.72 X10^3/uL (0.83-4.51); Basophil# 0.08 X10^3/uL; Basophil% 0.8 % (0-1); Eosinophil# 0.22 X10^3/uL; Eosinophils% 2.3 % (0-5); Hematocrit 43.8 % (37-47); Hemoglobin 14.2 g/dL (12.0-15.0); Lymphocyte # 1.72 X10^3/ul (0.83-4.51); Lymphocyte % 18.2 % (19-41); Mean Corp Hgb Conc 32.4 g/dL (32-36); Mean Corpuscular Hgb 29.7 pg (27.0-32.0); Mean Corpuscular Volume 91.6 fL (81-99); Monocyte# 0.41 X10^3/uL; Monocyte% 4.3 % (0-10); NRBC Flagged by Analyzer 0 % (0-5); Neutrophil # 6.98 X10^3/uL (2.7-7.7); Platelet Count 258 K/mm3 (150-450); RBC Distribution Width SD 43.8 fl (35.1-43.9); Red Blood Count 4.78 M/mm3 (4.2-5.4); White Blood Count 9.5 K/mm3 (4.4-11.0)
[2022-10-09 11:26] LABS: ALB/GLOB Ratio 0.8 RATIO (0.9-2.4); AST(SGOT) 21 U/L (15-37); Alanine Aminotransfer ALT/SGPT 29 U/L (13-56); Albumin, Serum 3.3 g/dL (3.2-5.0); Alkaline Phosphatase 82 U/L (45-117); Anion Gap 9 (5-15); BUN 17 mg/dL (7-18); Calcium,Total 8.9 mg/dL (8.5-10.1); Chloride 104 mmol/L (98-107); Cholesterol 146 mg/dL (200); Creatinine, Serum 1.06 mg/dL (0.55-1.02); EST Glomerular Filtration Rate 56 mL/min (>60); Est Glom Filt Rate - Afr Amer 67 mL/min (>60); Globulin 3.9 g/dL (2.2-4.2); Glucose 106 mg/dL (74-106); High Density Lipoprotein 61 mg/dL; Protein, Total 7.2 g/dL (6.4-8.2); Sodium Level 137 mmol/L (136-145); Triglycerides 108 mg/dL; Very Low Density Lipoprotein 22 mg/dL (5-40)
[2022-10-09 13:41] LABS: Hemoglobin A1c 5.5 % (3.8-5.6)
== END | disposition home or self-care (01) ==
LOC: MFPLAB 08:20
PROVIDERS: PCP Family Medicine; Visit Provider Family Medicine
DX: R73.02 Impaired glucose tolerance (oral) (principal); Z87.891 Personal history of nicotine dependence; E78.5 Hyperlipidemia, unspecified
CPT/HCPCS: 36415; 80053; 80061; 83036; 85025

== ENCOUNTER → 2022-10-20 | Outpatient (CLI) | payer OTHER, SELFPAY ==
[2022-10-20 13:50] LABS: Anion Gap 7 (5-15); BUN 20 mg/dL (7-18); BUN/Creat Ratio 20.3 RATIO (10-20); Calcium,Total 8.9 mg/dL (8.5-10.1); Chloride 109 mmol/L (98-107); Creatinine, Serum 0.99 mg/dL (0.55-1.02); EST Glomerular Filtration Rate 60 mL/min (>60); Est Glom Filt Rate - Afr Amer 73 mL/min (>60); Glucose 100 mg/dL (74-106); Potassium 4.1 mmol/L (3.5-5.1); Sodium Level 140 mmol/L (136-145)
== END | disposition home or self-care (01) ==
LOC: MFPLAB 11:18
PROVIDERS: PCP Family Medicine; Visit Provider Family Medicine
DX: N18.30 Chronic kidney disease, stage 3 unspecified (principal)
CPT/HCPCS: 36415; 80048

== ENCOUNTER → 2022-11-13 | Outpatient (CLI) | payer OTHER, SELFPAY ==
--- NOTE | 2022-11-13 08:50 | RDU_ITS ---
Reason For Study: CKD Right Renal Artery Left Renal Dimensions Right renal artery ostium HX Lt Nephrectomy. 165.5/46.4 RSV/EDV. Right renal artery proximal 138.8/40.1 PSV/EDV. Right renal artery mid 148.9/40.1 PSV/EDV. Right renal artery distal 142.2/38.6 PSV/EDV. Right RAR 2.9. Right Renal Parenchyma Upper Pole Medula 33.5/11.5 PSV/EDV. Right upper pole medulla EDR 0.30 . Right upper pole medulla R.I. 0.66 . Upper Robbie Cortx 20.9/8.2 PSV/EDV. Right upper pole cortex EDR 0.40 . Right upper pole cortex R.I. 0.61 . Right lower Pole medulla 39.5/14.2 PSV/EDV . Right lower pole medulla EDR 0.40 . Right lower pole medulla R.I. 0.64 . Lower Pole Cortex 20.0/6.5 PSV/EDV. Right lower pole cortex EDR 0.30 . Right lower pole cortex R.I. 0.68 . Right Renal Hilar Right Hilar avg 65.9/22.7 PSV/EDV. Right hilar acceleration time 20 m/sec. Right Renal Dimensions Right kidney size 12.82 cm . Right cortical dimension 1.61 cm . Aorta Proximal abdominal aorta 2.0cm x 2.0cm cm . Distal abdominal aorta 1.37cm x 1.32cm cm . Proximal abdominal aorta peak systolic velocity is 57.0 cm/sec . Distal abdominal aorta peak systolic velocity is 50.2 cm/sec . VL/Renal Artery Duplex Ultrasound Interpretation Summary Dimensions of the intra-abdominal aorta appear normal, without evidence of aneu rysmal dilatation. Right renal artery velocities are normal. The right acceleration time is normal . The right renal- aortic ratio is normal. There is no evidence of hemodynamically-significant rig ht renal artery stenosis. Right renovascular resistance appears normal. The right cortical dime nsion is increased. The right kidney is normal in size. The left kidney is absent. Ordering Physician: Shine Gibson Referring Physician: Shnie Gibson Performed By: Cameron Banuelos RVT
--- NOTE | 2022-11-13 12:53 | US_ITS ---
INDICATION: CKD stage 3, left nephrectomy EXAMINATION: Ultrasound US Kidney(s) complete (eg, kidneys and bladder) TECHNIQUE: Schuster scale and color doppler images were obtained of the kidneys. COMPARISON: None. FINDINGS: RIGHT KIDNEY: 11.8 cm length. There is no hydronephrosis. Simple cyst lower pole 1.5 x 1.1 x 1.4 cm; simple cyst upper pole 1.3 x 1.2 x 1.3 cm. LEFT KIDNEY: Surgically absent. URINARY BLADDER: Distended. Bladder volume 374 mL. Right ureteral jet visualized. US/Kidney and Bladder IMPRESSION: Unremarkable right renal ultrasound. Surgically absent left kidney. Electronically Signed: Randa Ceballos MD at 21:23 EDT ,
== END | disposition home or self-care (01) ==
LOC: CVS 08:49
PROVIDERS: PCP Family Medicine; Referring Provider Family Medicine; Visit Provider Family Medicine
DX: N18.30 Chronic kidney disease, stage 3 unspecified (principal)
CPT/HCPCS: 76770; 93975

== ENCOUNTER → 2023-04-27 | Outpatient (CLI) | payer OTHER, SELFPAY | END | disposition home or self-care (01) | LOC: LABSPEC 10:22 | PROVIDERS: PCP Family Medicine; Referring Provider Nurse Practitioner; Visit Provider Nurse Practitioner | DX: N39.0 Urinary tract infection, site not specified (principal) | CPT/HCPCS: 87086; 87088 ==

== ENCOUNTER → 2023-07-30 | Outpatient (CLI) | payer OTHER, SELFPAY ==
[2023-07-30 15:39] LABS: Mucous, Urine 0 SEEN /hpf (<or=2+); Red Blood Cells-Urine 0 SEEN /hpf (0-5)
[2023-07-30 17:38] LABS: Absolute Lymphocyte Count 2.39 X10^3/uL (0.83-4.51); Absolute Neutrophil Count 6.3 X10^3/uL (2.0-7.7); Basophil# 0.07 X10^3/uL; Basophil% 0.7 % (0-1); Eosinophil# 0.18 X10^3/uL; Eosinophils% 1.9 % (0-5); Hematocrit 42.9 % (37-47); Hemoglobin 14.1 g/dL (12.0-15.0); Lymphocyte # 2.39 X10^3/ul (0.83-4.51); Lymphocyte % 25.3 % (19-41); Mean Corp Hgb Conc 32.9 g/dL (32-36); Mean Corpuscular Hgb 29.4 pg (27.0-32.0); Mean Corpuscular Volume 89.6 fL (81-99); Mean Platelet Vol. 9.8 fl (6.2-12.0); Monocyte% 5.3 % (0-10); NRBC Flagged by Analyzer 0 % (0-5); Neutrophil # 6.25 X10^3/uL (2.7-7.7); Neutrophil % 66.4 % (47-70); Platelet Count 279 K/mm3 (150-450); RBC Distribution Width CV 13.1 % (11.6-14.6); RBC Distribution Width SD 42.8 fl (35.1-43.9); Red Blood Count 4.79 M/mm3 (4.2-5.4); White Blood Count 9.4 K/mm3 (4.4-11.0)
[2023-07-30 17:47] LABS: Color, Urine Yellow (Yellow); Glucose, Dipstick Normal (Normal); Ketone-Dipstick Negative (Negative); Leukocyte Esterase-Dipstick 25 /ul (Negative); Nitrite-Dipstick Negative (Negative); Occult Blood-Urine 50 /ul (Negative); Protein-Dipstick 100 mg/dl (Negative); Urine Bilirubin Dipstick Negative (Negative); Urine Clarity Clear (Clear); Urine Urobilinogen Normal (Normal)
[2023-07-30 17:51] LABS: Protein, Urine (Random) 61.8 mg/dL (<11.9); Protein:Creat Ratio 1195 mg/g CRE (0-200)
[2023-07-30 17:56] LABS: Vitamin D,25 Hydroxy 29.4 ng/mL
[2023-07-30 18:03] LABS: Squamous Epithelial Cells - UA 10-25 SEEN /hpf (5-10)
[2023-07-30 18:03] LABS: Hemoglobin A1c 5.3 % (3.8-5.6)
[2023-07-30 18:04] LABS: ALB/GLOB Ratio 1.1 RATIO (0.9-2.4); AST(SGOT) 22 U/L (15-37); Alanine Aminotransfer ALT/SGPT 36 U/L (13-56); Albumin, Serum 3.9 g/dL (3.2-5.0); Alkaline Phosphatase 71 U/L (45-117); Anion Gap 6 (5-15); BUN 18 mg/dL (7-18); BUN/Creat Ratio 17.3 RATIO (10-20); Calcium,Total 9.3 mg/dL (8.5-10.1); Chloride 110 mmol/L (98-107); Cholesterol 152 mg/dL (200); Creatinine, Serum 1.04 mg/dL (0.55-1.02); EST Glomerular Filtration Rate 57 mL/min (>60); Est Glom Filt Rate - Afr Amer 69 mL/min (>60); Globulin 3.5 g/dL (2.2-4.2); Glucose 90 mg/dL (74-106); High Density Lipoprotein 69 mg/dL; Phosphorus 2.5 mg/dL (2.5-4.9); Potassium 3.8 mmol/L (3.5-5.1); Protein, Total 7.4 g/dL (6.4-8.2); Sodium Level 140 mmol/L (136-145); Triglycerides 149 mg/dL; Very Low Density Lipoprotein 30 mg/dL (5-40)
[2023-07-30 18:04] LABS: Bacteria RARE /hpf (None Seen); White Blood Cells 0-5 SEEN /hpf (0-5)
[2023-07-30 18:28] LABS: PTHIN 85.2 pg/mL (18.4-80.1)
== END | disposition home or self-care (01) ==
LOC: MFPLAB 15:36
PROVIDERS: PCP Family Medicine; Visit Provider Family Medicine
DX: N18.30 Chronic kidney disease, stage 3 unspecified (principal); E78.5 Hyperlipidemia, unspecified; R73.02 Impaired glucose tolerance (oral)
CPT/HCPCS: 36415; 80053; 80061; 81001; 82306; 82570; 83036; 83970; 84100; 84156; 85025

== ENCOUNTER → 2023-10-09 | Outpatient (CLI) | payer OTHER, SELFPAY ==
--- NOTE | 2023-10-09 07:59 | CT_ITS ---
STUDY: CT CHEST WITHOUT CONTRAST REASON FOR EXAM: Female, 63 years old. Nodule, history of smoking RADIATION DOSAGE (If Supplied By Facility): CTDIvol = ( 15.63 ) mGy, DLP = ( 628.89 ) mGycm TECHNIQUE: Transaxial imaging was performed without the administration of intravenous contrast material. Multiplanar coronal and sagittal images were reformatted. Individualized dose optimization techniques were used for this CT. COMPARISON: Comparison is made with prior study dated September 16, 2022. FINDINGS: CHEST Stable small benign-appearing bilateral axillary lymph nodes. Tiny calcified granuloma in the left lower lobe. Stable 7.2 mm well-defined noncalcified nodule in the posterior medial segment of the right lower lobe as seen on axial image #69 and coronal image #201. Stable punctate nodular density seen along the lateral aspect of the posteromedial segment of the right lower lobe as seen on axial image #69. Stable 2 mm nodule in the right middle lobe anteriorly as seen on axial image #78. Stable 3 mm nodule in the right middle lobe. There is no demonstrated pleural abnormality. There are calcifications of the coronary arteries. There are multiple small lymph nodes within the mediastinum, which are normal in size and morphology most compatible with reactive lymph hyperplasia. Normal hilar regions. Normal unenhanced pulmonary arteries. There is atherosclerotic calcification of the aortic arch. There are degenerative changes of the thoracic spine. Small hiatal hernia. There is a 1.8 cm hypodense nodule in the right adrenal gland suggestive of a small adenoma. The patient is status post cholecystectomy. The left kidney is not seen. CT/Chest without Contrast IMPRESSION: Stable examination. Electronically Signed: Keny Branch MD at 10:03 EDT ,
--- NOTE | 2023-10-09 08:00 | RAD_ITS ---
STUDY: X-RAY - LEFT TIBIA AND FIBULA REASON FOR EXAM: Female, 63 years old. pain TECHNIQUE: 2 view(s) of the tibia and fibula were obtained. COMPARISON: None. FINDINGS: Normal visualized tibia. Normal visualized fibula. The soft tissue structures are unremarkable. RAD/Tibia & Fibula 2 Views IMPRESSION: Normal x-ray examination of the tibia and fibula. Electronically Signed: Ney Can MD at 17:04 EDT ,
== END | disposition home or self-care (01) ==
PROVIDERS: PCP Family Medicine; Referring Provider Family Medicine; Visit Provider Family Medicine
DX: R91.1 Solitary pulmonary nodule (principal); M79.605 Pain in left leg
CPT/HCPCS: 71250; 73590

== ENCOUNTER → 2023-10-12 | Outpatient (CLI) | payer OTHER, SELFPAY ==
--- NOTE | 2023-10-12 11:00 | RAD_ITS ---
STUDY: X-RAY - ACUTE ABDOMINAL SERIES REASON FOR EXAM: Female, 63 years old. pain TECHNIQUE: Single view of the chest. Supine, and erect view(s) of the abdomen were obtained. COMPARISON: None. FINDINGS: The lungs are clear and expanded. Normal size heart. Normal mediastinum and chris. Normal visualized pulmonary arteries. Normal visualized aortic arch and descending thoracic aorta. There is a non-specific bowel gas pattern. The soft tissue structures of the abdomen and pelvis are unremarkable. Normal visualized osseous structures. Status post cholecystectomy. RAD/Acute Abdomen Inc Chest IMPRESSION: Normal x-ray examination of the chest, abdomen, and pelvis. Electronically Signed: Nye Can MD at 17:35 EDT ,
== END | disposition home or self-care (01) ==
LOC: MTRAD 10:59
PROVIDERS: PCP Family Medicine; Referring Provider Nurse Practitioner Family; Visit Provider Nurse Practitioner Family
DX: R10.32 Left lower quadrant pain (principal)
CPT/HCPCS: 74022

== ENCOUNTER 2023-10-16 11:05 | Emergency (ER) | payer OTHER, SELFPAY ==
[2023-10-16 11:06] VITALS: BP 119/93; PULSE 91; RESP 16; TEMP 35.7; O2SAT 96; BMI 33.0
--- NOTE | 2023-10-16 11:20 | EDS_ITS ---
<Statement entered by Kiara Larry MD - 10/16/23 17:04> I have personally performed a face to face assessment of the patient and have reviewed the JUAN ALBERTO Note. Patient presents secondary to left-sided abdominal pain. She reports pain to the left upper lateral abdomen that seems to be worse in the evenings. She has had a prior nephrectomy secondary to a remote history of renal cancer. Patient is also noted a thinner caliber to her stools. Last colonoscopy was 3 years ago and was unremarkable. Patient sitting upright in bed no acute distress. Nontoxic-appearing. Head and neck examination unremarkable. Heart is regular rate and rhythm. Lung sounds are clear. Abdomen is soft with mild tenderness to the left upper abdomen. No guarding or rebound. No palpable masses. CBC reveals normal white count at 9.7 with 68% neutrophils. Chemistry studies and urinalysis are unremarkable. CT scan of the abdomen and pelvis with IV contrast reveals diverticulosis along with other chronic abnormalities, however no acute findings appreciated. Test results discussed with the patient. Given her change in stool caliber, we did recommend close follow-up with her GI doctor for a colonoscopy to rule out neoplasm. She voices understanding and agreement. Return instructions provided. HPI History of Present Illness Chief Complaint: Flank Pain Narrative Narrative: 63 yo female with PMH of HTN, HLD, GERD, remote renal cancer s/p left nephrectomy, cholecystectomy, appendectomy, bowel obstruction presents with 1 week of left sided abdominal and flank pain. She has daily bowel movements but they have become thin and small. No melena or hematochezia. No difficulty urinating. She has nausea but vomiting. The pain is worst at night and she feels hot but has no fever or chills. She states she had a colonoscopy 3 years ago and has had benign polyps and diverticulum. [facility] Medical History Abdominal pain Abnormal CT scan, gastrointestinal tract Chronic gastritis Diverticulosis Gastric ulcer GERD (gastroesophageal reflux disease) GERD with esophagitis Hiatal hernia Hyperlipidemia Sacroiliitis Tobacco abuse Home Medications ?Medication ?Instructions ?Recorded ?Last Taken ?Type omeprazole 20 mg capsule,delayed 20 mg PO DAILY 02/03/19 02/08/19 05:00 History release rosuvastatin 10 mg tablet 10 mg PO QHS cholesterol #30 02/03/19 Unknown History TABLETS phenazopyridine 100 mg tablet 100 mg PO BID PRN pain #14 tabs 04/25/23 Unknown Rx hydrocodone-acetaminophen 5-325mg 1 tab PO Q6H PRN pain 3 days #12 10/16/23 Unknown Rx 5mg-325mg tabs Allergy/AdvReac Type Severity Reaction Status Date / Time No Known Allergies Allergy Verified 10/16/23 11:06 Family History Father Myocardial infarction Heart disease Colon cancer Mother Cancer duodenal Surgical History History of appendectomy History of cholecystectomy History of colonoscopy (~2015) History of esophagogastroduodenoscopy (EGD) (~2008) History of left nephrectomy history of lysis of adhesions History of tubal ligation Social History (Updated 02/17/19 @ 10:[address] Lee Zuniga MD) Smoking Status: Current every day smoker tobacco type: cigarettes ROS ROS ED Constitutional Constitutional ED: Denies chills or fever(s) Cardiovascular Cardiovascular: Denies chest pain Respiratory/Chest Respiratory/Chest: Denies cough or dyspnea Gastrointestinal Gastrointestinal: Reports abdominal pain and nausea; Denies diarrhea, melena or vomiting Genitourinary Genitourinary ED: Denies dysuria or hematuria EXAM Physical Exam Const Vital Signs: 10/16/23 11:06 10/16/23 13:10 10/16/23 13:10 Temperature 96.2 F L 96.2 F L Temperature Source Temporal Pulse Rate 91 64 64 Respiratory Rate 16 16 16 Blood Pressure 119/93 H 113/78 Blood Pressure Mean 101 89 Pulse Ox 96 96 96 Oxygen Delivery Method Room Air Positive well nourished and well developed General Appearance ED: well developed HEENT Reports moist mucous membranes Resp normal respiratory effort and clear to auscultation bilaterally Cardio regular rate, regular rhythm and no murmurs GI normal to inspection, nondistended, normoactive bowel sounds Inspection: Negative for abdominal distention Palpation: soft and tender LLQ and periumbilical Back/Spine no CVA tenderness MDM MDM MDM Narrative Medical decision making narrative: History from: pt and spouse Differential: diverticulitis, sbo, neoplsam, uti among others 63 year old female was evaluated for 1 week of left sided abdominal and flank pain with stool changes. Hx of remote left nephrectomy. She appears well and nontoxic, vital signs stable. Abdomen is soft with left sided tenderness with no peritoneal signs. Overall CBC, BMP, and urinalysis are negative. CT scan shows no acute findings. She is scheduled for a colonoscopy in December with her GI in [place]. With her abdominal pain and thin stools I recommended she call them and move up her appointment to evaluate these new symptoms as neoplasm will need ruled out. I think she appropriate for outpatient management as she is tolerating p.o. intake and pain is adequately managed here. I prescribed norco for home with instructions to use stool softeners with it. I discussed return precautions and she was discharged in stable condition. Lab Data Attestation: I reviewed the patient's lab results. Labs: Laboratory Results - last 24 hr 10/16/23 10/16/23 11:30 11:40 WBC 9.7 RBC 5.22 Hgb 15.4 H Hct 45.8 MCV 87.7 MCH 29.5 MCHC 33.6 RDW Std Deviation 41.2 RDW Coeff of Citlali 13.0 Plt Count 301 MPV 9.3 Immature Gran % (Auto) 0.400 Neut % (Auto) 68.2 Lymph % (Auto) 24.6 Kern % (Auto) 4.7 Eos % (Auto) 1.3 Baso % (Auto) 0.8 Absolute Neuts (auto) 6.6 Absolute Lymphs (auto) 2.38 Nucleated RBC % 0 Sodium 137 Potassium 3.5 Chloride 103 Carbon Dioxide 26.0 Anion Gap 8 BUN 18 Creatinine 0.90 Estim Creat Clear Calc 62.71 Est GFR (MDRD) Af Amer 81 Est GFR (MDRD) Non-Af 67 BUN/Creatinine Ratio 20.1 H Glucose 110 H Calcium 9.2 Urine Color Yellow Urine Clarity Sl. Cloudy Urine pH 6.5 Ur Specific [place] 1.005 Urine Protein 30 H Urine Glucose (UA) Normal Urine Ketones Negative Urine Occult Blood 25 H Urine Nitrite Negative Urine Bilirubin Negative Urine Urobilinogen Normal Ur Leukocyte Esterase Negative Urine RBC 0-5 SEEN Urine WBC 0 SEEN Ur Squamous Epith Cells 0 SEEN Urine Bacteria 0 SEEN Urine Mucus 0 SEEN Radiography Diagnostic Testing: Clinical Impression(s) from Imaging Studies Abdomen/Pelvis CT 10/16/23 12:07 IMPRESSION: Sigmoid diverticulosis. Status post cholecystectomy. Stable small hepatic cysts. Stable 2.5 cm x 1.1 cm fatty polypoid abnormality in the second portion of the duodenum. Electronically Signed: Keny Branch MD at 12:47 EDT , Discharge Plan Triage Chief Complaint: Flank Pain ED Midlevel Provider: Marium Yates ED Provider: Kiara Larry Dx/Rx/DC Orders Clinical Impression: Abdominal pain, Left flank pain Instructions: Abdominal Pain Prescriptions: New hydrocodone-acetaminophen 5-325 mg tablet 1 tab PO Q6H PRN (Reason: pain) 3 Days Qty: 12 0RF No Action omeprazole 20 mg capsule,delayed release(DR/EC) 20 mg PO DAILY rosuvastatin 10 mg tablet 10 mg PO QHS Qty: 30 phenazopyridine 100 mg tablet 100 mg PO BID PRN (Reason: pain) Qty: 14 0RF Rx Instructions: will turn urine orange, take with food Primary Care Provider: Shine Gibson Referrals: Shine Gibson MD [Primary Care Provider] - Activity Restrictions/Additional Instructions: Call your GI doctor - I recommend seeing them soon and moving up your colonoscopy. If you take the presctribed hydrocodone it causes constipation so take a stool softener while on it. Return to the ER if symptoms worsen. Print Language: Somali Disposition Disposition: Home, Self Care Discharge Date/Time: 10/16/23 13:12
[2023-10-16] MEDS: 0.9% Normal Saline (1000mL) 1,000 ML 999 ML IV (11:35)
[2023-10-16] MEDS: Ondansetron 4 MG/2 ML Vial IV (11:36)
[2023-10-16] MEDS: Morphine 4 MG/ML Syringe IV (11:37)
[2023-10-16 11:47] LABS: Bacteria 0 SEEN /hpf (None Seen); Mucous, Urine 0 SEEN /hpf (<or=2+); Squamous Epithelial Cells - UA 0 SEEN /hpf (5-10); White Blood Cells 0 SEEN /hpf (0-5)
[2023-10-16 11:50] LABS: Color, Urine Yellow (Yellow); Glucose, Dipstick Normal (Normal); Ketone-Dipstick Negative (Negative); Leukocyte Esterase-Dipstick Negative /ul (Negative); Nitrite-Dipstick Negative (Negative); Occult Blood-Urine 25 /ul (Negative); Protein-Dipstick 30 mg/dl (Negative); Specific Gravity, Urine 1.005 (1.002-1.030); Urine Bilirubin Dipstick Negative (Negative); Urine Clarity Sl. Cloudy (Clear); Urine Urobilinogen Normal (Normal); Urine pH 6.5 (5.0 - 8.0)
[2023-10-16 11:50] LABS: Absolute Lymphocyte Count 2.38 X10^3/uL (0.83-4.51); Absolute Neutrophil Count 6.6 X10^3/uL (2.0-7.7); Basophil# 0.08 X10^3/uL; Basophil% 0.8 % (0-1); Eosinophil# 0.13 X10^3/uL; Eosinophils% 1.3 % (0-5); Hematocrit 45.8 % (37-47); Hemoglobin 15.4 g/dL (12.0-15.0); Lymphocyte # 2.38 X10^3/ul (0.83-4.51); Lymphocyte % 24.6 % (19-41); Mean Corp Hgb Conc 33.6 g/dL (32-36); Mean Corpuscular Hgb 29.5 pg (27.0-32.0); Mean Corpuscular Volume 87.7 fL (81-99); Mean Platelet Vol. 9.3 fl (6.2-12.0); Monocyte# 0.45 X10^3/uL; Monocyte% 4.7 % (0-10); NRBC Flagged by Analyzer 0 % (0-5); Neutrophil # 6.59 X10^3/uL (2.7-7.7); Neutrophil % 68.2 % (47-70); Platelet Count 301 K/mm3 (150-450); RBC Distribution Width SD 41.2 fl (35.1-43.9); Red Blood Count 5.22 M/mm3 (4.2-5.4); White Blood Count 9.7 K/mm3 (4.4-11.0)
[2023-10-16 12:02] LABS: Red Blood Cells-Urine 0-5 SEEN /hpf (0-5)
[2023-10-16 12:04] LABS: Anion Gap 8 (5-15); BUN 18 mg/dL (7-18); BUN/Creat Ratio 20.1 RATIO (10-20); Calcium,Total 9.2 mg/dL (8.5-10.1); Chloride 103 mmol/L (98-107); EST Glomerular Filtration Rate 67 mL/min (>60); Est Glom Filt Rate - Afr Amer 81 mL/min (>60); Estimated Creatinine Clearance 62.71 ml/min; Glucose 110 mg/dL (74-106); Potassium 3.5 mmol/L (3.5-5.1); Sodium Level 137 mmol/L (136-145)
--- NOTE | 2023-10-16 12:07 | CT_ITS ---
STUDY: CT ABDOMEN AND PELVIS WITH CONTRAST REASON FOR EXAM: Female, 63 years old. Abdominal pain RADIATION DOSAGE (If Supplied By Facility): CTDIvol = ( 16.65 ) mGy, DLP = ( 1227.23 ) mGycm TECHNIQUE: Transaxial images were obtained from the dome of the diaphragm to the symphysis pubis without oral contrast. IV 100mL Isovue-300 was administered. Sagittal and coronal images were reconstructed. Individualized dose optimization techniques were used for this CT. COMPARISON: Comparison is made with prior study dated October 16, 2020. FINDINGS: Stable 7 mm noncalcified nodule in the right lower lobe. Coronary artery calcification. Normal liver. There are surgical clips in the gallbladder fossa consistent with a prior cholecystectomy. Stable mild degree of central intrahepatic biliary ductal dilatation. Stable 4.5 mm cyst in the inferior medial aspect of the left lobe of the liver. Normal spleen. Normal pancreas. Normal bilateral adrenal glands. Stable small right renal cysts. Status post left nephrectomy. There is a small hiatal hernia. Once again, there is a 2.5 cm x 1.1 cm fatty polypoid abnormality in the second portion of the duodenum. There are multiple colonic diverticula consistent with diverticulosis. The patient is status post appendectomy. There is scattered atherosclerotic calcification of the abdominal aorta, without a demonstrated aneurysm. Normal inferior vena cava. Normal retroperitoneum. Normal urinary bladder. Normal abdominal wall. Normal osseous structures. CT/Abdomen/Pelvis W IV Cont ONLY IMPRESSION: Sigmoid diverticulosis. Status post cholecystectomy. Stable small hepatic cysts. Stable 2.5 cm x 1.1 cm fatty polypoid abnormality in the second portion of the duodenum. Electronically Signed: Keny Branch MD at 12:47 EDT ,
[2023-10-16 13:10] VITALS: BP 113/78; PULSE 64; RESP 16; TEMP 35.7; O2SAT 96
== END 2023-10-16 13:12 | disposition home or self-care (01) ==
PROVIDERS: Physician Assistant; Emergency Provider Emergency Medicine; PCP Family Medicine; Visit Provider Emergency Medicine
DX: R10.9 Unspecified abdominal pain (principal); I10 Essential (primary) hypertension; R11.2 Nausea with vomiting, unspecified; K21.00 Gastro-esophageal reflux disease with esophagitis, without bleeding; E78.5 Hyperlipidemia, unspecified; F17.210 Nicotine dependence, cigarettes, uncomplicated; Z90.5 Acquired absence of kidney; Z85.528 Personal history of other malignant neoplasm of kidney; Z90.49 Acquired absence of other specified parts of digestive tract; K57.30 Diverticulosis of large intestine without perforation or abscess without bleeding; K76.89 Other specified diseases of liver; K31.7 Polyp of stomach and duodenum
CPT/HCPCS: 74177; 80048; 81001; 85025; 96361; 96374; 96375; 99283; J7030; Q9967; A4216; J2405

== ENCOUNTER → 2023-12-03 | Outpatient (CLI) | payer OTHER, SELFPAY ==
[2023-12-03 10:19] LABS: Absolute Lymphocyte Count 1.71 X10^3/uL (0.83-4.51); Absolute Neutrophil Count 4.9 X10^3/uL (2.0-7.7); Basophil# 0.06 X10^3/uL; Basophil% 0.8 % (0-1); Eosinophil# 0.19 X10^3/uL; Eosinophils% 2.6 % (0-5); Hemoglobin 13.3 g/dL (12.0-15.0); Lymphocyte # 1.71 X10^3/ul (0.83-4.51); Lymphocyte % 23.6 % (19-41); Mean Corp Hgb Conc 32.4 g/dL (32-36); Mean Corpuscular Volume 89.5 fL (81-99); Mean Platelet Vol. 9.7 fl (6.2-12.0); Monocyte# 0.38 X10^3/uL; Monocyte% 5.2 % (0-10); NRBC Flagged by Analyzer 0 % (0-5); Neutrophil # 4.86 X10^3/uL (2.7-7.7); Neutrophil % 67.1 % (47-70); Platelet Count 276 K/mm3 (150-450); RBC Distribution Width CV 12.9 % (11.6-14.6); RBC Distribution Width SD 41.9 fl (35.1-43.9); Red Blood Count 4.58 M/mm3 (4.2-5.4); White Blood Count 7.3 K/mm3 (4.4-11.0)
[2023-12-03 10:38] LABS: ALB/GLOB Ratio 0.8 RATIO (0.9-2.4); AST(SGOT) 17 U/L (15-37); Alanine Aminotransfer ALT/SGPT 25 U/L (13-56); Albumin, Serum 3.2 g/dL (3.2-5.0); Alkaline Phosphatase 77 U/L (45-117); Anion Gap 7 (5-15); BUN 23 mg/dL (7-18); BUN/Creat Ratio 22.8 RATIO (10-20); Calcium,Total 9.2 mg/dL (8.5-10.1); Chloride 109 mmol/L (98-107); Cholesterol 153 mg/dL (200); Creatinine, Serum 1.01 mg/dL (0.55-1.02); EST Glomerular Filtration Rate 59 mL/min (>60); Est Glom Filt Rate - Afr Amer 71 mL/min (>60); Glucose 120 mg/dL (74-106); High Density Lipoprotein 64 mg/dL; Potassium 4.2 mmol/L (3.5-5.1); Protein, Total 7.2 g/dL (6.4-8.2); Sodium Level 139 mmol/L (136-145); Triglycerides 145 mg/dL; Very Low Density Lipoprotein 29 mg/dL (5-40)
[2023-12-03 12:09] LABS: Hemoglobin A1c 5.6 % (3.8-5.6)
== END | disposition home or self-care (01) ==
LOC: MFPLAB 08:35
PROVIDERS: PCP Family Medicine; Visit Provider Family Medicine
DX: R73.02 Impaired glucose tolerance (oral) (principal); J44.9 Chronic obstructive pulmonary disease, unspecified; E78.5 Hyperlipidemia, unspecified
CPT/HCPCS: 36415; 80053; 80061; 83036; 85025

== ENCOUNTER → 2024-03-14 | Outpatient (CLI) | payer OTHER, SELFPAY ==
[2024-03-14 18:50] LABS: Anion Gap 7 (5-15); BUN 18 mg/dL (7-18); BUN/Creat Ratio 18.3 RATIO (10-20); Calcium,Total 9.8 mg/dL (8.5-10.1); Chloride 104 mmol/L (98-107); Creatinine, Serum 0.98 mg/dL (0.55-1.02); EST Glomerular Filtration Rate 60 mL/min (>60); Est Glom Filt Rate - Afr Amer 73 mL/min (>60); Glucose 90 mg/dL (74-106); Potassium 3.8 mmol/L (3.5-5.1); Sodium Level 138 mmol/L (136-145)
== END | disposition home or self-care (01) ==
LOC: MFPLAB 14:32
PROVIDERS: PCP Family Medicine; Referring Provider Family Medicine; Visit Provider Family Medicine
DX: N18.30 Chronic kidney disease, stage 3 unspecified (principal)
CPT/HCPCS: 36415; 80048

== ENCOUNTER → 2024-06-07 | Outpatient (CLI) | payer MEDICARE, SELFPAY ==
[2024-06-07 10:37] LABS: Bacteria 0 SEEN /hpf (None Seen); Mucous, Urine 0 SEEN /hpf (<or=2+); White Blood Cells 0 SEEN /hpf (0-5)
[2024-06-07 12:37] LABS: Color, Urine Straw (Yellow); Glucose, Dipstick Normal (Normal); Ketone-Dipstick Negative (Negative); Leukocyte Esterase-Dipstick Negative /ul (Negative); Nitrite-Dipstick Negative (Negative); Occult Blood-Urine 25 /ul (Negative); Protein-Dipstick 30 mg/dl (Negative); Specific Gravity, Urine 1.005 (1.002-1.030); Urine Bilirubin Dipstick Negative (Negative); Urine Clarity Clear (Clear); Urine Urobilinogen Normal (Normal)
[2024-06-07 12:52] LABS: Absolute Lymphocyte Count 1.98 X10^3/uL (0.83-4.51); Absolute Neutrophil Count 4.7 X10^3/uL (2.0-7.7); Basophil# 0.04 X10^3/uL; Basophil% 0.5 % (0-1); Eosinophil# 0.23 X10^3/uL; Eosinophils% 3.1 % (0-5); Hematocrit 42.3 % (37-47); Hemoglobin 13.8 g/dL (12.0-15.0); Lymphocyte # 1.98 X10^3/ul (0.83-4.51); Lymphocyte % 26.9 % (19-41); Mean Corp Hgb Conc 32.6 g/dL (32-36); Mean Corpuscular Hgb 28.8 pg (27.0-32.0); Mean Corpuscular Volume 88.3 fL (81-99); Mean Platelet Vol. 9.9 fl (6.2-12.0); Monocyte# 0.35 X10^3/uL; Monocyte% 4.8 % (0-10); NRBC Flagged by Analyzer 0 % (0-5); Neutrophil # 4.73 X10^3/uL (2.7-7.7); Neutrophil % 64.3 % (47-70); Platelet Count 267 K/mm3 (150-450); RBC Distribution Width SD 42.2 fl (35.1-43.9); Red Blood Count 4.79 M/mm3 (4.2-5.4); White Blood Count 7.4 K/mm3 (4.4-11.0)
[2024-06-07 13:27] LABS: Protein, Urine (Random) 23.1 mg/dL (0.0-12.0); Protein:Creat Ratio 1662 mg/g CRE (0-200)
[2024-06-07 13:29] LABS: PTHIN 57 pg/mL (11-61)
[2024-06-07 13:29] LABS: Red Blood Cells-Urine 0-5 SEEN /hpf (0-5); Squamous Epithelial Cells - UA 0-5 SEEN /hpf (5-10)
[2024-06-07 13:35] LABS: Cholesterol 160 mg/dL (<=200); High Density Lipoprotein 63 mg/dL; Low Density Lipoprotein Calc. 63 mg/dL; Magnesium 1.4 mg/dL (1.5-2.2); Phosphorus 2.8 mg/dL (2.7-4.5); Triglycerides 171 mg/dL; Very Low Density Lipoprotein 34 mg/dL (5-40); Vitamin D,25 Hydroxy 15.8 ng/mL (30-100); cholesterol:hdl ratio screen 2.56
[2024-06-07 13:51] LABS: ALB/GLOB Ratio 1.3 RATIO (0.9-2.4); AST(SGOT) 21 U/L (<=31); Alanine Aminotransfer ALT/SGPT 19 U/L (<=34); Albumin, Serum 3.9 g/dL (3.4-4.8); Alkaline Phosphatase 85 U/L (35-104); Anion Gap 12 (5-15); BUN 17 mg/dL (4-19); BUN/Creat Ratio 17.8 RATIO (10-20); Calcium,Total 8.8 mg/dL (7.6-11.0); Carbon Dioxide 22.7 mmol/L (21.0-32.0); Chloride 103 mmol/L (98-108); Creatinine, Serum 0.94 mg/dL (0.70-1.20); EST Glomerular Filtration Rate 67 (>60); Globulin 3.1 g/dL (2.2-4.2); Glucose 113 mg/dL (70-99); Potassium 4.1 mmol/L (3.3-5.1); Sodium Level 138 mmol/L (133-145); Total Bilirubin 0.28 mg/dL (0.00-1.30)
== END | disposition home or self-care (01) ==
LOC: MFPLAB 10:04
PROVIDERS: PCP Family Medicine; Referring Provider Family Medicine; Visit Provider Family Medicine
DX: I12.9 Hypertensive chronic kidney disease with stage 1 through stage 4 chronic kidney disease, or unspecified chronic kidney disease (principal); N18.30 Chronic kidney disease, stage 3 unspecified; R73.02 Impaired glucose tolerance (oral)
CPT/HCPCS: 36415; 80053; 80061; 81001; 82306; 82570; 83036; 83735; 83970; 84100; 84156; 85025

== ENCOUNTER → 2024-06-15 | Outpatient (CLI) | payer MEDICARE, SELFPAY ==
--- NOTE | 2024-06-15 14:23 | BD_ITS ---
PROCEDURE: DEXA BONE DENSITY STUDY 06/15/2024 REASON FOR EXAM: Postmenopausal. Osteoporosis screening. TECHNIQUE: DXA scan of the lumbar spine and left hip, using make and model. REFERENCE LINKS: ISCD Adult Positions COMPARISON: None available FINDINGS: BMD and T-SCORES Lumbar spine: (0.789) g/cm2, T-Score -2.8 L3 through L4 Left femoral neck: (0.704) g/cm2, T-Score -1.3 Femoral neck comparison data not recommended for monitoring change. Left total hip: (0.843) g/cm2, T-Score -0.8 Right femoral neck: (0.672) g/cm2, T-Score -1.6 Femoral neck comparison data not recommended for monitoring change. Right total hip: (0.838) g/cm2, T-Score -0.9 Fracture Risk Calculation: See exam for details of tool utilized. 10 Year Probability of Fracture: Major Osteoporotic Fracture: 8.7% Hip Fracture: 1.0% BD/Dexa Bone Density Study IMPRESSION: Osteoporosis. Recommend follow-up as clinically warranted. Reading Location: [facility]
--- NOTE | 2024-06-15 15:00 | BI_ITS ---
EXAM: SCRN MAMM (CAD)W/RUBY BILAT 06/15/2024 CLINICAL HISTORY: F, Age 64 y/o , SCREENING. No family history. BREAST CANCER RISK ASSESSMENT: Not assessed. TECHNIQUE: Bilateral screening digital breast tomosynthesis with 2D and 3D images. Computer aided detection. COMPARISON: Prior exam(s) dating back to comparison is made with prior study dated December 05, 2021.. FINDINGS: Bilateral Breast Mammographic Findings: No significant masses, calcifications or other abnormalities are identified. TISSUE DENSITY: The breast tissue is composed of scattered area of fibroglandular density. No suspicious masses, areas of developing architectural distortion, or suspicious calcifications. There has been no significant interval change. BI/SCRN MAMM (CAD)W/RUBY BILAT IMPRESSION: Right Breast: BIRADS 1 NEGATIVE. Left Breast: BIRADS 1 NEGATIVE. OVERALL FINAL ASSESSMENT: BIRADS 1 NEGATIVE RECOMMENDATION: ROUTINE ANNUAL FOLLOW-UP Bilateral in 1 Year Normal interval followup mammograms are recommended in 12 months. A letter with findings and recommendations will be mailed to the patient. Reading Location: [place] [id number]
== END | disposition home or self-care (01) ==
PROVIDERS: PCP Family Medicine; Referring Provider Family Medicine; Visit Provider Family Medicine
DX: Z12.31 Encounter for screening mammogram for malignant neoplasm of breast (principal); Z78.0 Asymptomatic menopausal state
CPT/HCPCS: 77063; 77067; 77080

== ENCOUNTER 2024-06-25 10:30 | Emergency (ER) | payer MEDICARE, SELFPAY ==
[2024-06-25 10:32] VITALS: BP 128/84; PULSE 86; RESP 16; TEMP 36.5; O2SAT 96; BMI 35.4
[2024-06-25 10:34] VITALS: BP 134/78; PULSE 78; RESP 16; TEMP 37; O2SAT 98
--- NOTE | 2024-06-25 10:55 | EDS_ITS ---
HPI <Brandy Alejo RN - Last Filed: 06/25/24 11:10> History of Present Illness Chief Complaint: Back Detail of Chief Complaint: Right upper back Informant: patient Onset/Context/Timing Onset: Yesterday Context: Gradual Onset Chronic pain exacerbated by: Movement Quality: Sharp, Aching and Burning Location: See diagram Current Severity: 5/10 Maximum Severity: 8/10 Worsened by: improves with Movement Relieved by: Medications (Tylenol, heat) Associated Symptoms Associated Symptoms: Negative for Numbness, Tingling, Fever, Abdominal Pain, Dysuria, Urinary Retention, Urinary Incontinence or Constipation Narrative Narrative: Patient is a 64-year-old female with past medical history significant for chest pain, chronic gastritis, GERD with esophagitis, cholecystectomy, left nephrectomy, diverticulosis, recent diagnosis of osteoporosis who developed gradual onset of upper right thoracic back pain yesterday radiating to right shoulder. Of note, patient reports she was started on Fosamax 2 days prior to arrival. Pain is worse with palpation and movement. Denies numbness tingling. Patient denies injury. Patient denies fever, chills, chest pain, and shortness of breath. Patient with chronic cough. Denies increasing cough. Patient reports she did have some diarrhea 2 days ago and has been okay since. She did take some dicyclomine at that time. Denies hematuria, dysuria, and urinary frequency. Denies nausea and vomiting. Patient reports she has been using heat and Tylenol with mild relief. She denies any recent travel. Prior similar symptoms: No Recent Illness/Hospitalization: No PFSH <Brandy Alejo RN - Last Filed: 06/25/24 11:10> [facility] Medical History Hiatal hernia Chronic gastritis GERD with esophagitis Abdominal pain Abnormal CT scan, gastrointestinal tract Hyperlipidemia Diverticulosis Gastric ulcer Sacroiliitis Tobacco abuse GERD (gastroesophageal reflux disease) Home Medications ?Medication ?Instructions ?Recorded ?Last Taken ?Type omeprazole 20 mg capsule,delayed 20 mg PO DAILY 02/08/19 05:00 History release alendronate 70 mg tablet 70 mg PO QWEEK 06/25/24 Unkn own History ergocalciferol (vitamin D2) 1,250 1,250 mcg PO QWEEK 0 06/25/24 Unknown History mcg (50,000 unit) capsule metaxalone 800 mg tablet 800 mg PO TID 7 days #21 tab s 06/25/24 Unknown Rx rosuvastatin 20 mg tablet 20 mg PO QPM 06/25/24 Unknow n History valsartan 80 mg tablet 80 mg PO DAILY 06/25/24 Unkn own History Allergy/AdvReac Type Severity Reaction Status Date / Time No Known Allergies Allergy Verified 06/25/24 10:31 Family History Father Myocardial infarction Heart disease Colon cancer Mother Cancer duodenal Surgical History History of colonoscopy (~2015) History of esophagogastroduodenoscopy (EGD) (~2008) History of left nephrectomy History of tubal ligation history of lysis of adhesions History of cholecystectomy History of appendectomy Social History Smoking Status: Current every day smoker tobacco type: cigarettes ROS <Brandy Alejo RN - Last Filed: 06/25/24 11:10> ROS ED ROS Narrative Patient denies dizziness, lightheadedness, fever, chills, weakness. Patient does report she has chronic night sweats. Constitutional Constitutional ED: Reports sweats; Denies chills or fever(s) Eyes Eyes: Denies blurry vision, change in vision or diplopia ENT ENT ED: Denies ear pain, rhinorrhea or sore throat Cardiovascular Cardiovascular: Denies chest pain, orthopnea, palpitations, paroxysmal nocturnal dyspnea or racing heartbeat Respiratory/Chest Respiratory/Chest: Reports other Details: Chronic cough ; Denies dyspnea, dyspnea on exertion, orthopnea or paroxysmal nocturnal dyspnea Gastrointestinal Gastrointestinal: Denies abdominal pain, constipation, diarrhea, nausea or vomiting Genitourinary Genitourinary ED: Denies dysuria, hematuria or urinary frequency Musculoskeletal Musculoskeletal: Reports back pain; Denies arthralgias, myalgias or neck pain Integumentary Denies abscess, Abrasions or rash Neurologic Neurologic: Denies headache(s), paresthesias or weakness Psychiatric Psychiatric: Denies anxiety or depression EXAM <Brandy Alejo RN - Last Filed: 06/25/24 11:10> Physical Exam Narrative Exam Narrative: Patient sitting on edge of ED cot, awake and alert. at bedside. Patient pleasant and cooperative. No acute distress. Const Vital Signs: 06/25/24 10:32 06/25/24 10:34 Temperature 97.7 F L 98.6 F Temperature Source Oral Oral Pulse Rate 86 78 Respiratory Rate 16 16 Blood Pressure 128/84 H 134/78 H Blood Pressure Mean 98 96 Pulse Ox 96 98 Oxygen Delivery Method Room Air Room Air Positive well nourished and well developed General Appearance ED: well developed and NAD HEENT Reports moist mucous membranes Eyes PERRL and EOMs intact bilaterally Neck no lymphadenopathy, supple and no JVD Chest Wall Chest Narrative: No tenderness or crepitus with palpation. Resp normal respiratory effort and clear to auscultation bilaterally Auscultation: Negative for rales, rhonchi or wheezes Cardio regular rate, regular rhythm, S1 normal heart sound and S2 normal heart sound GI normal to inspection, nondistended, normoactive bowel sounds and soft to palpation Narrative: Denies hematuria, dysuria, urinary frequency Back/Spine normal to inspection Back/Spine Narrative: Tenderness to right upper thoracic area with palpation. Redness noted to mid upper back. Patient does report using heating pad last p.m. Cervical Spine: Negative for cervical spine tenderness Extremity normal to inspection and no clubbing, cyanosis or edema Neuro oriented x3 and no sensory deficits noted Sensorium / Orientation: alert Motor Exam: strength 5/5 throughout Psych mental status grossly normal Skin Skin Narrative: Redness to mid upper back Lesions: No lesion noted Rashes: No rashes noted Image ED - Body Diagram Man: 2 1. Redness <Dr. Odilon Guillaume MD - Last Filed: 06/25/24 11:11> Physical Exam Const Vital Signs: 06/25/24 10:32 06/25/24 10:34 Temperature 97.7 F L 98.6 F Temperature Source Oral Oral Pulse Rate 86 78 Respiratory Rate 16 16 Blood Pressure 128/84 H 134/78 H Blood Pressure Mean 98 96 Pulse Ox 96 98 Oxygen Delivery Method Room Air Room Air MDM <Brandy Alejo RN - Last Filed: 06/25/24 11:10> MDM MDM Narrative Medical decision making narrative: This appears to be musculoskeletal as it is reproducible. Patient will be given a dose of Skelaxin here. History & Record Review Discussion w/independent historian: Patient and Significant other Differential Diagnosis Differential Diagnosis: Back strain Differential Diagnosis: Muscle spasm Differential Diagnosis: Aortic dissection Management Discussion w/another healthcare provider: Other (Dr. Guillaume, ED provider) Treatment and Re-Evaluation Narrative: Patient given a dose of Skelaxin and will be sent home with a prescription for Skelaxin. Discussed treatment for muscle spasm. Patient understands plan and agreeable. Patient to be discharged home. <Dr. Odilon Guillaume MD - Last Filed: 06/25/24 11:11> [facility] Narrative Medical decision making narrative: I have personally performed a face to face assessment of the patient and have reviewed the JUAN ALBERTO Note. I performed a substantive portion of the visit including all aspects of the following. My hooper findings include: History is 64-year-old female with right upper back and shoulder pain for the last several days. Denies any fall injury or trauma. No weakness or numbness. No prior back history or surgery. Denies any recent illness. Exam is [well-appearing 64-year-old female. Vital signs are stable afebrile. No distress. in the room. H EENT exam normal. Neck nontender no lymphadenopathy. Lungs clear to auscultation bilaterally. Heart regular rhythm rate about 80 no murmur. Chest wall and ribs nontender. Abdomen soft nontender. Moving all 4 extremities. 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 Strong radial pulse. Dorsi plantarflexion intact. Normal strength and sensation of both lower extremities. Back she has reproducible right upper shoulder and upper back pain consistent with a myofascial strain or spasm. There is no bruising. No discoloration of the where she had a heating pad. There is no shingles. She has normal range of motion of both upper extremities. The pain is reproducible with movement. Neurologic exam is normal. She has normal strength and sensation.] Medical Decision Making [64-year-old female history and exam are consistent with a myofascial strain and spasm. She be placed on Skelaxin 800 3 times daily. Hot shower, massage, whirlpool. Motrin and Tylenol. Outpatient follow-up as needed. She does not need any imaging or labs today. They would be of any benefit.] Other additions or changes: [None] History & Record Review Discussion w/independent historian: Patient and Family Additional record(s) reviewed:: Prior inpatient record and Prior outpatient record Discharge Plan Triage Chief Complaint: Back ED Provider: Odilon Guillaume Dx/Rx/DC Orders Clinical Impression: Muscle spasm Instructions: ED Muscle Spasm Prescriptions: New metaxalone 800 mg tablet 800 mg PO TID 7 Days Qty: 21 0RF No Action omeprazole 20 mg capsule,delayed release(DR/EC) 20 mg PO DAILY alendronate 70 mg tablet 70 mg PO QWEEK valsartan 80 mg tablet 80 mg PO DAILY ergocalciferol (vitamin D2) 1,250 mcg (50,000 unit) capsule 1,250 mcg PO QWEEK rosuvastatin 20 mg tablet 20 mg PO QPM Primary Care Provider: Shine Gibson Referrals: Shine Gibson MD [Primary Care Provider] - 1 Week if not improving Activity Restrictions/Additional Instructions: You have a muscle spasm in your right upper back and shoulder. Hot shower, warm bath, whirlpool, massage. Motrin for 100 mg 3 times a day for pain and inflammation. Tylenol for pain. The muscle relaxant Skelaxin 3 times a day for a week. Usually by day 4 you will start noticing significant improvement. Follow-up with your doctor if not improving. Print Language: Yemeni Disposition Disposition: Home, Self Care
[2024-06-25] MEDS: Metaxalone 800 MG Tablet PO (11:27)
== END 2024-06-25 11:29 | disposition home or self-care (01) ==
PROVIDERS: Emergency Provider Emergency Medicine; PCP Family Medicine; Visit Provider Emergency Medicine
DX: M62.830 Muscle spasm of back (principal); K21.9 Gastro-esophageal reflux disease without esophagitis; E78.5 Hyperlipidemia, unspecified; G89.29 Other chronic pain; Z90.49 Acquired absence of other specified parts of digestive tract; Z90.5 Acquired absence of kidney; M81.0 Age-related osteoporosis without current pathological fracture; Z79.83 Long term (current) use of bisphosphonates; Z79.899 Other long term (current) drug therapy; F17.210 Nicotine dependence, cigarettes, uncomplicated; R05.3 Chronic cough
CPT/HCPCS: 99282

== ENCOUNTER → 2024-09-13 | Outpatient (CLI) | payer MEDICARE, SELFPAY ==
[2024-09-13 12:38] LABS: Absolute Lymphocyte Count 2.49 X10^3/uL (0.83-4.51); Absolute Neutrophil Count 5.2 X10^3/uL (2.0-7.7); Basophil# 0.07 X10^3/uL; Basophil% 0.8 % (0-1); Eosinophil# 0.26 X10^3/uL; Hematocrit 42.6 % (37-47); Hemoglobin 14.3 g/dL (12.0-15.0); Lymphocyte # 2.49 X10^3/ul (0.83-4.51); Lymphocyte % 29.2 % (19-41); Mean Corp Hgb Conc 33.6 g/dL (32-36); Mean Corpuscular Hgb 28.8 pg (27.0-32.0); Mean Corpuscular Volume 85.9 fL (81-99); Mean Platelet Vol. 10.4 fl (6.2-12.0); Monocyte# 0.47 X10^3/uL; Monocyte% 5.5 % (0-10); NRBC Flagged by Analyzer 0 % (0-5); Neutrophil # 5.22 X10^3/uL (2.7-7.7); Neutrophil % 61.3 % (47-70); Platelet Count 293 K/mm3 (150-450); RBC Distribution Width CV 13.1 % (11.6-14.6); Red Blood Count 4.96 M/mm3 (4.2-5.4); White Blood Count 8.5 K/mm3 (4.4-11.0)
[2024-09-13 13:14] LABS: Hemoglobin A1c 6.1 % (<=5.6)
[2024-09-13 13:30] LABS: Cholesterol 146 mg/dL (<=200); High Density Lipoprotein 59 mg/dL; Low Density Lipoprotein Calc. 59 mg/dL; Triglycerides 140 mg/dL; Very Low Density Lipoprotein 28 mg/dL (5-40); Vitamin D,25 Hydroxy 50.2 ng/mL (30-100); cholesterol:hdl ratio screen 2.47
== END | disposition home or self-care (01) ==
LOC: MFPLAB 10:19
PROVIDERS: PCP Family Medicine; Referring Provider Family Medicine; Visit Provider Family Medicine
DX: I10 Essential (primary) hypertension (principal); E55.9 Vitamin D deficiency, unspecified; R73.02 Impaired glucose tolerance (oral); E78.5 Hyperlipidemia, unspecified
CPT/HCPCS: 36415; 80061; 82306; 83036; 85025

== ENCOUNTER → 2024-09-16 | Outpatient (CLI) | payer MEDICARE, SELFPAY ==
[2024-09-16 10:58] LABS: ALB/GLOB Ratio 1.3 RATIO (0.9-2.4); AST(SGOT) 27 U/L (<=31); Alanine Aminotransfer ALT/SGPT 24 U/L (<=34); Albumin, Serum 4.2 g/dL (3.4-4.8); Alkaline Phosphatase 86 U/L (35-104); Anion Gap 13 (5-15); BUN 18 mg/dL (4-19); BUN/Creat Ratio 18.7 RATIO (10-20); Calcium,Total 9.1 mg/dL (7.6-11.0); Carbon Dioxide 22.6 mmol/L (21.0-32.0); Chloride 103 mmol/L (98-108); Creatinine, Serum 0.97 mg/dL (0.70-1.20); EST Glomerular Filtration Rate 65 (>60); Globulin 3.3 g/dL (2.2-4.2); Glucose 127 mg/dL (70-99); Potassium 4.1 mmol/L (3.3-5.1); Protein, Total 7.5 g/dL (5.9-8.4); Sodium Level 138 mmol/L (133-145); Total Bilirubin 0.34 mg/dL (0.00-1.30)
== END | disposition home or self-care (01) ==
LOC: MFPLAB 08:59
PROVIDERS: PCP Family Medicine; Referring Provider Family Medicine; Visit Provider Family Medicine
DX: N18.30 Chronic kidney disease, stage 3 unspecified (principal)
CPT/HCPCS: 36415; 80053

== ENCOUNTER 2024-10-03 08:45 | Outpatient (RCR) | payer MEDICARE, SELFPAY | END 2024-10-27 23:59 | LOC: NS 08:45 | PROVIDERS: PCP Family Medicine; Referring Provider Family Medicine; Visit Provider Family Medicine | DX: Z71.3 Dietary counseling and surveillance (principal); E78.5 Hyperlipidemia, unspecified; E66.9 Obesity, unspecified; N18.31 Chronic kidney disease, stage 3a; R73.02 Impaired glucose tolerance (oral); Z68.34 Body mass index [BMI] 34.0-34.9, adult | CPT/HCPCS: 97802 ==

== ENCOUNTER 2024-11-01 08:48 | Outpatient (RCR) | payer MEDICARE, SELFPAY | END 2024-11-27 23:59 | LOC: NS 08:48 | PROVIDERS: PCP Family Medicine; Referring Provider Family Medicine; Visit Provider Family Medicine | DX: Z71.3 Dietary counseling and surveillance (principal); E66.9 Obesity, unspecified; E78.5 Hyperlipidemia, unspecified; N18.31 Chronic kidney disease, stage 3a; R73.02 Impaired glucose tolerance (oral) | CPT/HCPCS: 97803 ==

== ENCOUNTER 2024-11-04 06:17 | Emergency (ER) | payer MEDICARE, SELFPAY ==
[2024-11-04 06:19] VITALS: BP 143/71; PULSE 86; RESP 19; TEMP 36.6; O2SAT 97; BMI 34.2
--- NOTE | 2024-11-04 06:24 | EX.ED.DYSGE1 ---
HPI History of Present Illness Chief Complaint: Lower Extremity Injury Narrative Narrative: Patient is a 64-year-old female with past medical history of GERD with esophagitis, hyperlipidemia, who presented to the emergency department chief complaint of left foot and ankle pain. Patient states that she got up to go the bathroom and noted that she knew the computer screen was on downstairs and went downstairs to turn this off. States that when she got to the second to last step she missed stepped causing her to twist her ankle. States that she was unable to bear weight therefore she came here for further evaluation management. Patient states that she not hit her head she not passed out she denies any blood thinner medications [facility] Medical History Hiatal hernia Chronic gastritis GERD with esophagitis Abdominal pain Abnormal CT scan, gastrointestinal tract Hyperlipidemia Diverticulosis Gastric ulcer Sacroiliitis Tobacco abuse GERD (gastroesophageal reflux disease) Home Medications ?Medication ?Instructions ?Recorded ?Last Taken ?Type omeprazole 20 mg capsule,delayed 20 mg PO DAILY 02/03/19 02/08/19 05:00 History release alendronate 70 mg tablet 70 mg PO QWEEK 06/25/24 Unknown History rosuvastatin 20 mg tablet 20 mg PO QPM 06/25/24 Unknown History valsartan 80 mg tablet 80 mg PO DAILY 06/25/24 Unknown History dicyclomine 20 mg tablet 20 mg PO BID PRN abdominal pain 11/04/24 Unknown History metformin 500 mg tablet 500 mg PO BID 11/04/24 Unknown History ondansetron 4 mg disintegrating 4 mg PO Q6H PRN nausea and 11/04/24 Unknown Rx tablet vomiting #20 tabs oxycodone-acetaminophen 5 mg-325 1 tab PO Q6H PRN pain 3 days #12 11/04/24 Unknown Rx mg tablet (Endocet) tabs Allergy/AdvReac Type Severity Reaction Status Date / Time No Known Allergies Allergy Verified 11/04/24 06:18 Family History Father Myocardial infarction Heart disease Colon cancer Mother Cancer duodenal Surgical History History of colonoscopy (~2015) History of esophagogastroduodenoscopy (EGD) (~2008) History of left nephrectomy History of tubal ligation history of lysis of adhesions History of cholecystectomy History of appendectomy Social History Smoking Status: Current every day smoker tobacco type: cigarettes ROS ROS ED ROS Narrative Constitutional: Denies headache, fever, chills, lightness, dizziness Eyes: Denies double vision Cardiovascular: Denies chest pain Respiratory: Denies shortness of breath Neurological: Denies any numbness or tingling Musculoskeletal: Complains of left foot and ankle pain as noted above Skin: Denies any rashes or lesions EXAM Physical Exam Narrative Exam Narrative: General: Patient lying in bed rest comfortably did not appear to be in acute distress Head: Atraumatic, normocephalic Eyes: PERRL bilaterally, EOMI bilaterally, no conjunctival injection noted Neck: Soft, supple, trachea midline Cardiovascular: Regular rate and rhythm Respiratory: Clear to auscultation bilaterally Abdomen: No tenderness to palpation Musculoskeletal: Patient has tenderness palpation of the left foot on the lateral aspect as well as the medial and lateral malleolus. All of the bony prominence palpated joints taken through full range of motion no pain elicited Extremities: DP pulses +2/4 in the bilateral lower extremities Neurological: Patient following commands knew that she was at [facility] the year is 2024 Skin: Warm, dry, tact no rashes or lesions noted Const Vital Signs: 11/04/24 06:19 Temperature 97.9 F Temperature Source Oral Pulse Rate 86 Respiratory Rate 19 H Blood Pressure 143/71 H Blood Pressure Mean 95 Pulse Ox 97 Oxygen Delivery Method Room Air MDM MDM MDM Narrative Medical decision making narrative: Patient is a 64-year-old female who presented to the emergency department with a chief complaint of left foot and ankle pain. On the differential diagnosis includes but not limited to ankle sprain, lateral malleolus fracture, medial malleolus fracture, metatarsal fracture. Once the workup is obtained reviewed she will be reevaluated. Patient's foot and ankle x-ray reviewed by myself and by radiology which showed a acute spiral displaced fracture of the distal fibular diaphysis. Patient was placed in splint see procedure note for separate details. Did discuss case with orthopedics. Patient was advised to follow-up in outpatient setting and remain nonweightbearing she was advised to keep the splint dry and clean. She was advised to rotate Tylenol and ibuprofen [id number] for mild to moderate pain and use the Endocet and Zofran for severe pain. She is agreeable this plan all question concerns answered she was discharged home in stable condition. Procedure note Procedure: AO splint Indication: Acute spiral displaced fracture of the distal fibula Procedure: Patient had Webril applied to the left lower extremity followed by plaster followed by Webril and ultimately kait wrap. Mold was applied. Patient remained neurovascularly intact. Patient tolerated procedure well no complications. Radiography Diagnostic Testing: Clinical Impression(s) from Imaging Studies Ankle X-Ray 11/04/24 06:33 IMPRESSION: Acute spiral displaced fracture of the distal fibular diaphysis. Overlying soft tissue edema and swelling. Reading Location: [place] [address] Foot X-Ray 11/04/24 06:33 IMPRESSION: ACUTE SPIRAL DISPLACED FRACTURE OF THE DISTAL FIBULAR DIAPHYSIS. Reading Location: [place] [address] Discharge Plan Triage Chief Complaint: Lower Extremity Injury ED Provider: Alonso Zaldivar Dx/Rx/DC Orders Clinical Impression: Fall, Closed left fibular fracture Prescriptions: New oxycodone-acetaminophen [Endocet] 5-325 mg tablet 1 tab PO Q6H PRN (Reason: pain) 3 Days Qty: 12 0RF ondansetron 4 mg tablet,disintegrating 4 mg PO Q6H PRN (Reason: nausea and vomiting) Qty: 20 0RF No Action omeprazole 20 mg capsule,delayed release(DR/EC) 20 mg PO DAILY alendronate 70 mg tablet 70 mg PO QWEEK valsartan 80 mg tablet 80 mg PO DAILY rosuvastatin 20 mg tablet 20 mg PO QPM metformin 500 mg tablet 500 mg PO BID dicyclomine 20 mg tablet 20 mg PO BID PRN (Reason: abdominal pain) Primary Care Provider: Shine Gibson Referrals: Shine Gibson MD [Primary Care Provider] - Fletcher Jack MD [Med Staff - Active Staff] - Activity Restrictions/Additional Instructions: When sitting you can ice through the splint. Keep the splint dry do not get this wet. Rotate Tylenol and ibuprofen [id number] for mild to moderate pain when you do this he can take something every 3 hours with a max dose Tylenol in 24 hours 4000 mg and the max dose of ibuprofen in 24 hours 3200 mg. Use the Endocet and Zofran for severe pain. Do not operate anything under the influence of the narcotic. Follow-up with Dr. Jack in the outpatient setting. Return with worsening symptoms or any concerns. Do not put weight on this foot. Print Language: Tristanian Disposition Disposition: Home, Self Care
--- NOTE | 2024-11-04 06:33 | RAD_ITS ---
PROCEDURE: ANKLE MIN 3 VIEWS 11/04/2024 REASON FOR EXAM: FALL TECHNIQUE: ANKLE MIN 3 VIEWS Laterality: LEFT COMPARISON: 10/09/2023. FINDINGS: Acute spiral displaced fracture of the distal fibular diaphysis. Overlying soft tissue edema and swelling. Calcaneal spur formation. Enthesophyte formation at the calcaneal insertion of Achilles tendon. Normal visualized distal tibia and medial malleolus. Normal tibiotalar articulation and ankle mortise. Normal visualized talus. Normal visualized calcaneus. The visualized subtalar, talonavicular, calcaneocuboid and tarsal articulations are normal. RAD/Ankle min 3 Views IMPRESSION: Acute spiral displaced fracture of the distal fibular diaphysis. Overlying soft tissue edema and swelling. [facility]
--- NOTE | 2024-11-04 06:33 | RAD_ITS ---
PROCEDURE: FOOT MIN 3 VIEWS 11/04/2024 REASON FOR EXAM: FALL TECHNIQUE: FOOT MIN 3 VIEWS Laterality: LEFT. COMPARISON: 10/09/2023. FINDINGS: Acute spiral displaced fracture of the distal fibular diaphysis. Calcaneal spur formation. Enthesophyte formation at the calcaneal insertion of Achilles tendon. Normal talus, calcaneus, and tarsal bones. Normal visualized subtalar, talonavicular, calcaneocuboid, tarsal and tarsometatarsal articulations. Normal metatarsi. Normal metatarsophalangeal joint of the great toe. Normal tibial and fibular sesamoid bones. Normal interphalangeal joint of the great toe. Normal phalanges of the great toe. Normal second through fifth metatarsophalangeal joints. Normal interphalangeal joints of the lesser toes. Normal phalanges of the lesser toes. RAD/Foot min 3 Views IMPRESSION: ACUTE SPIRAL DISPLACED FRACTURE OF THE DISTAL FIBULAR DIAPHYSIS. [facility]
[2024-11-04] MEDS: HYDROcodone Bitartrate/Apap 5/325 Tablet PO (06:39)
--- OUTSIDE RECORDS SUMMARY | 2024-11-04 07:17 | XMS RPT_ITS | CCD ---
Author Organization [facility] Care Team Providers Care Data Systems Analyst Name Role Phone Guille Conde MD Primary Care Provider Dwayne Gibson Unavailable Brian Zaldivar MD Unavailable Zion Patel MD Unavailable Dr. Dwayne Gibson Primary Care Provider Dr. Dwayne Gibson Referring Provider Dr. Dwayne Gibson Other Provider Dr. Patel Orozco Attending Provider Guille Conde MD Primary Care Provider Dwayne Gibson Unavailable [phone] Brian Zaldivar MD Unavailable Zion Patel MD Unavailable Guille Conde MD Primary Care Provider Dwayne Gibson Unavailable Brian Zaldivar MD Unavailable Zion Patel MD Unavailable [phone] Dwayne Gibson MD Unavailable [phone] Brian Zaldivar MD Unavailable MERARI TORO Attending Unavailable DWAYNE LEUNG Referring Unavailable GUILLE CONDE Primary Care Unavailable Dr. Dwayne Gibson Primary Care Provider Dr. Dwayne Gibson Referring Provider MARILYN Spivey Attending Provider [phone]. Dwayne Mitchell Primary Care Provider [phone] Dr. Dwayne Gibson Referring Provider MARILYN Spivey Attending Provider Paige BANEGAS, Dr. Dwayne Portillo Primary Care Provider Paige BANEGAS, Dr. Dwayne Portillo Attending Provider Paige BANEGAS, Dr. Dwayne Portillo Referring Provider Markell BANEGAS, Dr. Donald Emergency Provider Paige BANEGAS, Dr. Dwayne Portillo Primary Care Provider [phone] Paige BANEGAS, Dr. Dwayne Portillo Attending Provider Pagie BANEGAS, Dr. Dwayne Portillo Referring Provider Markell BANEGAS, Dr. Donald Attending Provider Paige BANEGAS, Dr. Dwayne Portillo Primary Care Provider Paige BANEGAS, Dr. Dwayne Portillo Attending Provider Paige BANEGAS, Dr. Dwayne Portillo Referring Provider Dwayne Gibson Primary Care Unavailable Dwayne Gibson Attending Unavailable Dwayne Gibson Referring Unavailable Dwayne Gibson Primary Care Unavailable Dwayne Gibson Attending Unavailable Dwayne Gibson Referring Unavailable Dwayne Gibson Referring Unavailable Dwayne Gibson Attending Unavailable Dwayne Gibson Primary Care Unavailable Dwayne Gibson Primary Care Unavailable Dwayne Gibson Attending Unavailable Dwayne Gibson Referring Unavailable Dwayne Gibson Primary Care Unavailable Dwayne Gibson Attending Unavailable Dwayne Gibson Referring Unavailable SchDwayne mejía Attending Unavailable Dwayne Gibson Primary Care Unavailable Dwayen Gibson Referring Unavailable Dwayne Gibson Attending Unavailable Dwayne Gibson Primary Care Unavailable Odilon Guillaume Attending Unavailable Dwayne Gibson Primary Care Unavailable SchDwayne mejía Referring Unavailable SchDwayne mejía Attending Unavailable Dwayne Gibson Primary Care Unavailable Allergies Allergy Classification Reported Allergen(s) Allergy Type Date of Onset Reaction(s) Facility (9 sources) Doxycycline; Translations: [DOXYCYCLINE] Drug Allergy 12-28-201 5 Diarrhea [facility] Work Phone: (9 sources) Seasonal allergy; Translations: [SEASONAL ALLERGIES] Allergy to substance 4 Other: See Comments [facility] Medications Current Medications Medication Drug Class(es) Dates Sig (Normalized) Sig (Original) alendronic acid 70 mg oral tablet (4 sources) Bisphosphonate Start: 06-25-2024 take 1 tablet by mouth every week Alendronate 70 mg tablet Active 70 mg PO EVERY WEEK June 25, 2024 12:00am ergocalciferol 1.25 mg oral capsule (4 sources) Provitamin D2 Compound Start: 06-25-2024 Ergocalciferol (Vitamin D2) 1,250 mcg (50,000 unit) capsule Active 1250 ug PO EVERY WEEK June 25, 2024 12:00am metaxalone 800 mg oral tablet (4 sources) Start: 06-25-2024 take 1 tablet by mouth three times daily Metaxalone 800 mg tablet Active 800 mg PO THREE TIMES A DAY 21 7 0 June 25, 2024 12:00am omeprazole 20 mg delayed release oral capsule (20 sources) Proton Pump Inhibitor Start: 02-03-2019 take 1 capsule by mouth once daily Omeprazole 20 mg capsule,delayed release(DR/EC) Active 20 mg PO DAILY February 03, 2019 1:00am rosuvastatin calcium 20 mg oral tablet (20 sources) HMG-CoA Reductase Inhibitor Start: 06-25-2024 take 1 tablet by mouth once daily in the evening Rosuvastatin 20 mg tablet Active 20 mg PO EVERY EVENING June 25, 2024 12:00am Start: 02-03-2019 End: 06-25-2024 take 1 tablet by mouth at bedtime Rosuvastatin 10 mg tablet Discontinued 10 mg PO AT BEDTIME 30 0 February 03, 2019 1:00am June 25, 2024 10:48am cholesterol valsartan 80 mg oral tablet (4 sources) Angiotensin 2 Receptor Howard Start: 06-25-2024 take 1 tablet by mouth once daily Valsartan 80 mg tablet Active 80 mg PO DAILY June 25, 2024 12:00am Completed/Discontinued Medications Medication Drug Class(es) Dates Sig (Normalized) Sig (Original) acetaminophen 500 mg oral tablet (8 sources) Start: 10-23-2008 ACETAMINOPHEN 500 MG TAB as necessary 0 10/23/2008 Active Comment on above: as necessary acetaminophen 325 mg / HYDROcodone bitartrate 5 mg oral tablet (20 sources) Opioid Agonist Start: 10-16-2023 End: 06-25-2024 Hydrocodone-Acetamin ophen 5-325 mg tablet Discontinued 1 {tbl} PO EVERY 6 HOURS as needed for pain 12 3 0 October 16, 2023 June 25, 2024 10:48am Abdominal pain Unspecified abdominal pain Start: 01-10-2019 End: 01-15-2019 Hydrocodone-Acetaminophen 1 TABLET tablet Discontinued 1 {tbl} PO EVERY 6 HOURS NEEDED as needed for Pain 10 3 0 January 10, 2019 January 12, 2019 12:00am January 15, 2019 12:09am Right flank pain Unspecified abdominal pain Start: 01-10-2019 End: 01-15-2019 take 1 tablet by mouth every six hours as needed Hydrocodone-Acetaminophen Discontinued 1 TABLET PO EVERY 6 HOURS NEEDED 10 3 January 10, 2019 January 15, 2019 12:09am [id number] actuat albuterol 0.09 mg/actuat metered dose inhaler (1 source) beta2-Adrenergic Agonist Start: 06-09-2018 End: 07-15-2021 take 2 puff(s) by inhalation every four hours as needed albuterol HFA (PROVENTIL HFA, VENTOLIN HFA) 90 mcg/actuation inhaler Indications: Wheezing Inhale 2 Puffs as instructed every 4 hours as needed. 1 Inhaler 0 06/09/2018 07/15/2021 Discontinued Comment on above: Inhale 2 Puffs as in structed every 4 hours as needed. benzonatate 100 mg oral capsule (1 source) Non-narcotic Antitussive Start: 06-09-2018 End: 07-15-2021 take 1 capsule by mouth three times daily as needed benzonatate (TESSALON PERLE) 100 mg capsule Indications: Persistent cough for 3 weeks or longer Take 1 capsule by mouth three times daily as needed. 60 capsule 0 06/09/2018 07/15/2021 Discontinued Comment on above: Take 1 capsule by [facility] three times daily as needed. cephalexin 500 mg oral capsule (8 sources) Cephalosporin Antibacterial Start: 04-25-2023 End: 05-02-2023 take 1 capsule by mouth every twelve hours Cephalexin 500 mg capsule Discontinued 500 mg PO Q12H 14 7 0 April 25, 2023 1:00am May 01, 2023 1:00am May 02, 2023 1:39am Urinary tract infection Urinary tract infection, site not specified citalopram 40 mg oral tablet (1 source) Serotonin Reuptake Inhibitor Start: 12-29-2016 End: 07-15-2021 take 1 tablet by mouth once daily citalopram (CELEXA) 40 mg tablet take 1 tablet by mouth once daily 30 tablet 0 12/29/2016 07/15/2021 Discontinued Comment on above: take 1 tablet by anabela th once daily dicyclomine hydrochloride 10 mg oral capsule (1 source) Anticholinergic Start: 07-31-2015 End: 07-15-2021 take 1 capsule by mouth every six hours as needed dicyclomine (BENTYL) 10 mg capsule Take 1 capsule by mouth four times daily as needed. 120 capsule 2 07/31/2015 07/15/2021 Discontinued Comment on above: Take 1 capsule by mo ut four times daily as needed. fexofenadine hydrochloride 60 mg oral tablet (1 source) Histamine-1 Receptor Antagonist End: 07-15-2021 take 1 tablet by mouth once daily fexofenadine (GINGER) 60 mg tablet Take 60 mg by mouth once daily. 0 07/15/2021 Discontinued Comment on above: Take 60 mg by mouth once daily. ibuprofen 600 mg oral tablet (1 source) Nonsteroidal Anti-inflammatory Drug Start: 12-25-2014 End: 07-15-2021 take 1 tablet by mouth every six hours as needed ibuprofen (MOTRIN) 600 mg tablet Take 1 tablet by mouth every 6 hours as needed for Pain. 30 tablet 0 12/25/2014 07/15/2021 Discontinued Comment on above: Take 1 tablet by anabela th every 6 hours as needed for Pain. montelukast 10 mg oral tablet (1 source) Leukotriene Receptor Antagonist Start: 03-24-2016 End: 07-15-2021 take 1 tablet by mouth at bedtime montelukast (SINGULAIR) 10 mg tablet take 1 tablet by mouth at bedtime 30 tablet 11 03/24/2016 07/15/2021 Discontinued Comment on above: take 1 tablet by anabela th at bedtime pantoprazole 20 mg delayed release oral tablet (1 source) Proton Pump Inhibitor Start: 12-29-2016 End: 07-15-2021 take 1 tablet by mouth before breakfast pantoprazole DR (PROTONIX) 20 mg tablet take 1 tablet by mouth 1/2 HR BEFORE BREAKFAST 30 tablet 0 12/29/2016 07/15/2021 Discontinued Comment on above: [facility]2 HR BEFORE BREAKFAST phenazopyridine hydrochloride 100 mg oral tablet (8 sources) Start: 04-25-2023 End: 06-25-2024 take 1 tablet by mouth twice daily at mealtime for pain Phenazopyridine 100 mg tablet Discontinued 100 mg PO TWICE A DAY as needed for pain 14 0 April 25, 2023 1:00am June 25, 2024 10:48am Urinary tract infection Urinary tract infection, site not specified will turn urine orange, take with food Triamcinolone (1 source) Corticosteroid End: 07-15-2021 TRIAMCINOLONE ACETONIDE (NASACORT NASAL) Use in the nose. 0 07/15/2021 Discontinued Comment on above: Use in the nose. Problems Active Problems Problem Classification Problem Date Documented Da te Episodic/Chronic Abdominal hernia (20 sources) Hiatal hernia; Translations: [Diaphragmatic hernia without obstruction or gangrene] 06-19-2020 Episodic Abdominal pain (20 sources) Abdominal pain; Translations: [Unspecified abdominal pain] 10-16-2020 Episodic Biliary tract disease (2 sources) Cholangiectasis; Translations: [Other specified diseases of biliary tract] Onset: 2 Chronic Cancer of kidney and renal pelvis (16 sources) Malignant tumor of kidney; Translations: [Malignant neoplasm of unspecified kidney, except renal pelvis] Onset: 9 03-25-2021 Chronic Cancer of kidney and renal pelvis (20 sources) History of malignant neoplasm of kidney; Translations: [Personal history of other malignant neoplasm of kidney] 07-26-2018 Episodic Chronic kidney disease (3 sources) Chronic kidney disease; Translations: [Chronic kidney disease, stage 3a] Onset: 5 Diseases of mouth; excluding dental (20 sources) Parotitis; Translations: [Acute sialoadenitis] 06-20-2020 Episodic Disorders of lipid metabolism (20 sources) Hyperlipidemia; Translations: [Hyperlipidemia, unspecified] 06-19-2020 Chronic Diverticulosis and diverticulitis (20 sources) Diverticular disease; Translations: [Diverticulosis of intestine, part unspecified, without perforation or abscess without bleeding] 06-19-2020 Chronic Esophageal disorders (20 sources) Gastroesophageal reflux disease; Translations: [Gastro-esophageal reflux disease without esophagitis] Onset: 6 06-25-2015 Chronic Essential hypertension (1 source) Essential (primary) hypertension; Translations: [Essential (primary) hypertension] Onset: 5 Chronic Gastritis and duodenitis (20 sources) Chronic gastritis; Translations: [Unspecified chronic gastritis without bleeding] 02-17-2019 Chronic Gastroduodenal ulcer (except hemorrhage) (20 sources) Gastric ulcer; Translations: [Gastric ulcer, unspecified as acute or chronic, without hemorrhage or perforation] 06-19-2020 Chronic Genitourinary congenital anomalies (8 sources) Absent kidney; Translations: [Solitary kidney] Onset: 2 04-24-2011 Chronic Hypertension with complications and secondary hypertension (1 source) Hypertensive chronic kidney disease with stage 1 through stage 4 chronic kidney disease, or unspecified chronic kidney disease; Translations: [Hypertensive chronic kidney disease with stage 1 through stage 4 chronic kidney disease, or unspecified chronic kidney disease] Onset: 5 Chronic Mood disorders (8 sources) Depressive disorder; Translations: [Depression] Onset: 2 04-17-2011 Chronic Nonspecific chest pain (20 sources) Chest pain; Translations: [Chest pain, unspecified] 07-27-2018 Episodic Other connective tissue disease (4 sources) Spasm; Translations: [Other muscle spasm] 06-25-2024 Episodic Other disorders of stomach and duodenum (2 sources) Mass of duodenum; Translations: [Other diseases of stomach and duodenum] Episodic Other ear and sense organ disorders (8 sources) Hearing loss; Translations: [Unspecified hearing loss, unspecified ear] Onset: 2 07-31-2011 Chronic Other ear and sense organ disorders (8 sources) Bilateral hearing loss; Translations: [Unspecified hearing loss, bilateral] Onset: 6 06-25-2015 Chronic Other gastrointestinal disorders (1 source) Disorder of intestine; Translations: [Disease of intestine, unspecified] Episodic Other liver diseases (8 sources) Steatosis of liver; Translations: [Fatty (change of) liver, not elsewhere classified] Onset: 0 07-09-2009 Chronic Other upper respiratory disease (8 sources) Allergic rhinitis; Translations: [Allergic rhinitis, unspecified] Onset: 9 12-26-2008 Chronic Residual codes; unclassified (20 sources) History of nephrectomy; Translations: [Acquired absence of kidney] 06-19-2020 Episodic Residual codes; unclassified (20 sources) Tobacco user; Translations: [Tobacco use] 02-03-2019 Episodic Residual codes; unclassified (20 sources) Past history of procedure; Translations: [Other specified postprocedural states] 06-19-2020 Episodic Residual codes; unclassified (20 sources) History of colonoscopy; Translations: [Other specified postprocedural states] 06-19-2020 Episodic Spondylosis; intervertebral disc disorders; other back problems (20 sources) Inflammation of sacroiliac joint; Translations: [Sacroiliitis, not elsewhere classified] 06-19-2020 Chronic Substance-related disorders (8 sources) Tobacco user; Translations: [Nicotine dependence, unspecified, uncomplicated] Onset: 9 06-12-2008 Chronic Urinary tract infections (10 sources) Urinary tract infectious disease; Translations: [Urinary tract infection, site not specified] 04-25-2023 Episodic Past or Other Problems Problem Classification Problem Date Documented Da te Episodic/Chronic Diabetes mellitus without complication (1 source) Impaired glucose tolerance (oral); Translations: [Impaired glucose tolerance (oral)] Onset: Episodic Gastrointestinal hemorrhage (8 sources) Gastrointestinal hemorrhage; Translations: [Gastrointestinal hemorrhage, unspecified] Onset: 9 08-28-2008 Episodic Genitourinary symptoms and ill-defined conditions (8 sources) Blood in urine; Translations: [Hematuria, unspecified] Onset: 2 04-07-2011 Episodic Open wounds of extremities (8 sources) Laceration of thumb; Translations: [Laceration without foreign body of unspecified thumb without damage to nail, initial encounter] Onset: 3 12-02-2012 Episodic Other and unspecified benign neoplasm (8 sources) Benign neoplasm of colon; Translations: [Benign neoplasm of colon, unspecified] Onset: 9 09-05-2008 Episodic Other and unspecified benign neoplasm (8 sources) Adenomatous polyp of colon ; Translations: [Benign neoplasm of colon, unspecified] Onset: 1 03-17-2011 Episodic Other connective tissue disease (8 sources) Impingement syndrome of right shoulder region; Translations: [Impingement syndrome of right shoulder] Onset: 3 01-13-2013 Episodic Other diseases of kidney and ureters (8 sources) Cyst of kidney; Translations: [Cyst of kidney, acquired] Onset: 2 04-07-2011 Episodic Other disorders of stomach and duodenum (1 source) Other diseases of stomach and duodenum; Translations: [Duodenal nodule] Onset: 2 Episodic Other injuries and conditions due to external causes (8 sources) Laceration of digital nerve in finger; Translations: [Injury of digital nerve of unspecified finger, initial encounter] Onset: 3 12-02-2012 Episodic Other screening for suspected conditions (not mental disorders or infectious disease) (20 sources) Imaging of gastrointestinal tract abnormal; Translations: [Abnormal findings on diagnostic imaging of other parts of digestive tract] Onset: 5 Episodic Residual codes; unclassified (8 sources) Family history of malignant neoplasm of gastrointestinal tract; Translations: [Family history of malignant neoplasm of digestive organs] Onset: 9 09-05-2008 Episodic Spondylosis; intervertebral disc disorders; other back problems (17 sources) Neck pain; Translations: [Cervicalgia] Onset: 1 02-24-2011 Episodic Unclassified (20 sources) history of lysis of adhesions 10-23-2021 Results Test Name Value Interpretation Reference Range Facility Anion gap in Serum or Plasma Ordered By: Dwayne Gibson on 09-16-2024 Anion gap [Moles/Vol] 13 mmol/L 08-11 [facility] BUN/creatinine ratioOrdered By: Dwayne Gibson on 09-16-2024 Urea nitrogen/Creatinine [Mass ratio] 18.7 mg/mg 01-16 [facility] Bilirubin, totalOrdered By: Dwayne Gibson on 09-16-2024 Bilirubin [Mass/Vol] 0.34 mg/dL 0.00-1.30 [facility] Carbon dioxide, total [Moles /volume] in Central venous bloodOrdered By: Dwayne Gibson on 09-16-2024 CO2 [Moles/Vol] 22.6 mmol/L 21.0-32.0 [facility] Chloride assayOrdered By: Sadie Gibson on 09-16-2024 Chloride [Moles/Vol] 103 mmol/L 98-108 [facility] Comprehensive Metabolic Prof ilon 09-16-2024 Albumin [Mass/Vol] 4.2 g/dL Normal 3.4-4.8 [facility] Comment on above: Order Comment: Order Date: 09/16/24 Order Info: 0786-1 - CMP Performed By: #### [id number] #### [facility] [address] [place], [address] Albumin/Globulin [Mass ratio] 1.3 {ratio} Normal 0.9-2.4 [facility] Comment on above: Order Comment: Order Date: 09/16/24 Order Info: 0786-1 - CMP Performed By: #### [id number] #### [facility] [address] [place], [address] ALK PHOS 86 U/L Normal 35-104 [facility] Comment on above: Order Comment: Order Date: 09/16/24 Order Info: 0786-1 - CMP Performed By: #### [id number] #### [facility] [address] [place], [address] ALT [Catalytic activity/Vol] 24 U/L Normal <=34 [facility] Comment on above: Order Comment: Order Date: 09/16/24 Order Info: 0786-1 - CMP Performed By: #### [id number] #### [facility] [address] [place], [address] AST [Catalytic activity/Vol] 27 U/L Normal <=31 [facility] Comment on above: Order Comment: Order Date: 09/16/24 Order Info: 0786-1 - CMP Performed By: #### [id number] #### [facility] [address] [place], [address] Bilirubin [Mass/Vol] 0.34 mg/dL Normal 0.00-1.30 [facility] Comment on above: Order Comment: Order Date: 09/16/24 Order Info: 0786-1 - CMP Performed By: #### [id number] #### [facility] [address] [place], [address] BUN/CRE 18.7 RATIO Normal 10-20 [facility] Comment on above: Order Comment: Order Date: 09/16/24 Order Info: 0786-1 - CMP Performed By: #### [id number] #### [facility] [address] [place], [address] Calcium [Mass/Vol] 9.1 mg/dL Normal 7.6-11.0 [facility] Comment on above: Order Comment: Order Date: 09/16/24 Order Info: 0786-1 - CMP Performed By: #### [id number] #### [facility] [address] [place], [address] Chloride [Moles/Vol] 103 mmol/L Normal 98-108 [facility] Comment on above: Order Comment: Order Date: 09/16/24 Order Info: 0786-1 - CMP Performed By: #### [id number] #### [facility] [address] [place], [address] CO2 [Moles/Vol] 22.6 mmol/L Normal 21.0-32.0 [facility] Comment on above: Order Comment: Order Date: 09/16/24 Order Info: 0786-1 - CMP Performed By: #### [id number] #### [facility] [address] [place], [address] Creatinine [Mass/Vol] 0.97 mg/dL Normal 0.70-1.20 [facility] Comment on above: Order Comment: Order Date: 09/16/24 Order Info: 0786-1 - CMP Performed By: #### [id number] #### [facility] [address] [place], [address] GAP 13 Normal 5-15 [facility] Comment on above: Order Comment: Order Date: 09/16/24 Order Info: 0786-1 - CMP Performed By: #### [id number] #### [facility] [address] [place], [address] GFR/1.73 sq M.predicted among non-blacks MDRD (S/P/Bld) [Vol rate/Area] 65 mL/min/{1.73_m2} Normal >60 [facility] Comment on above: Order Comment: Order Date: 09/16/24 Order Info: 0786-1 - CMP Result Comment: mL/m in/1.73m2 CKD-EPI Creatinine Equation (2020) Performed By: #### [id number] #### [facility] [address] [place], [address] Globulin (S) [Mass/Vol] 3.3 g/dL Normal 2.2-4.2 [facility] Comment on above: Order Comment: Order Date: 09/16/24 Order Info: 0786-1 - CMP Performed By: #### [id number] #### [facility] [address] [place], [address] Glucose [Mass/Vol] 127 mg/dL High 70-99 [facility] Comment on above: Order Comment: Order Date: 09/16/24 Order Info: 0786-1 - CMP Performed By: #### [id number] #### [facility] [address] [place], [address] Potassium [Moles/Vol] 4.1 mmol/L Normal 3.3-5.1 [facility] Comment on above: Order Comment: Order Date: 09/16/24 Order Info: 0786-1 - CMP Performed By: #### [id number] #### [facility] [address] [place], [address] Sodium [Moles/Vol] 138 mmol/L Normal 133-145 [facility] Comment on above: Order Comment: Order Date: 09/16/24 Order Info: 0786-1 - CMP Performed By: #### [id number] #### [facility] [address] [place], [id number] T PROT 7.5 g/dL Normal 5.9-8.4 [facility] Comment on above: Order Comment: Order Date: 09/16/24 Order Info: 0786-1 - CMP Performed By: #### [id number] #### [facility] [address] [place], [address] Urea nitrogen [Mass/Vol] 18 mg/dL Normal 4-19 [facility] Comment on above: Order Comment: Order Date: 09/16/24 Order Info: 0786-1 - CMP Performed By: #### [id number] #### [facility] [address] [place], [address] Glomerular filtration rate ( GFR) estimation/1.73 sq m using serum, plasma, or whole bOrdered By: Dwayne Gibson on 09-16-2024 GFR/1.73 sq M.predicted among non-blacks MDRD (S/P/Bld) [Vol rate/Area] 65 mL/min/{1.73_m2} >60 [facility] Comment on above: mL/min/1.73m2 CKD-EP I Creatinine Equation (2020) Laboratory - Chemistry and C hemistry - challengeOrdered By: Dwayne Gibson on 09-16-2024 AST [Catalytic activity/Vol] 27 U/L <32 [facility] Potassium measurement (mass/ volume)Ordered By: Dwayne Gibson on 09-16-2024 Potassium (Unsp spec) [Mass/Vol] 4.1 mmol/L 3.3-5.1 [facility] Serum creatinine measurement (mass/volume)Ordered By: Dwayne Gibson on 09-16-2024 Creatinine [Mass/Vol] 0.97 mg/dL 0.70-1.20 [facility] Serum globulin measurementOr dered By: Dwayne Gibson on 09-16-2024 Globulin (S) [Mass/Vol] 3.3 g/dL 2.2-4.2 [facility] [facility] Serum glucose measurement (m ass/volume)Ordered By: Dwayne Gibson on 09-16-2024 Glucose [Mass/Vol] 127 mg/dL High 70-99 [facility] Serum or plasma alanine salmon otransferase (ALT) measurementOrdered By: Dwayne Gibson on 09-16-2024 ALT [Catalytic activity/Vol] 24 U/L <35 [facility] Serum or plasma albumin julee urement (mass/volume)Ordered By: Dwayne Gibson on 09-16-2024 Albumin [Mass/Vol] 4.2 g/dL 3.4-4.8 [facility] Serum or plasma albumin/glob ulin mass ratioOrdered By: Dwayne Gibson on 09-16-2024 Albumin/Globulin [Mass ratio] 1.3 {ratio} 0.9-2.4 [facility] Serum or plasma alkaline wagner sphatase measurementOrdered By: Dwayne Gibson on 09-16-2024 ALP [Catalytic activity/Vol] 86 U/L 35-104 [facility] Serum or plasma calcium julee urement (mass/volume)Ordered By: Dwayne Gibson on 09-16-2024 Calcium [Mass/Vol] 9.1 mg/dL 7.6-11.0 [facility] Serum or plasma urea nitroge n measurement (mass/volume)Ordered By: Dwayne Gibson on 09-16-2024 Urea nitrogen [Mass/Vol] 18 mg/dL 4-19 [facility] Sodium levelOrdered By: Dwayne Gibson on 09-16-2024 Sodium [Moles/Vol] 138 mmol/L 133-145 [facility] Total proteinOrdered By: Efrain Gibson on 09-16-2024 Protein [Mass/Vol] 7.5 g/dL 5.9-8.4 [facility] Absolute lymphocyte countOrd ered By: Dwayne Gibson on 09-13-2024 Lymphocytes Auto (Unsp spec) [#/Vol] 2.49 10*3/uL 0.83-4.51 [facility] Absolute neutrophil countOrd ered By: Dwayne Gibson on 09-13-2024 Neutrophils (Bld) [#/Vol] 5.2 10*3/uL 2.0-7.7 [facility] Automated lymphocyte count a s percentage of total leukocytesOrdered By: Dwayne Gibson on 09-13-2024 Lymphocytes/100 WBC Auto (Unsp spec) 29.2 % 19-41 [facility] Basophil percentageOrdered B y: Dwayne Gibson on 09-13-2024 Basophils/100 WBC (Bld) 0.8 % 0-1 [facility] CBC W/Diff, Automatedon 08-28 Absolute Lymph 2.49 X10 3/uL Normal 0.83-4.51 [facility] Comment on above: Order Comment: CLEAN CATCH Performed By: #### L 400.0001, L501.0900 #### [facility] [address] [place], [address] Absolute Neut 5.2 X10 3/uL Normal 2.0-7.7 [facility] Comment on above: Order Comment: CLEAN CATCH Performed By: #### L 400.0001, L501.0900 #### [facility] [address] [place], [address] Basophils/100 WBC (Bld) 0.8 % Normal 0-1 [facility] Comment on above: Order Comment: CLEAN CATCH Performed By: #### L 400.0001, L501.0900 #### [facility] [address] [place], [address] Eosinophils/100 WBC (Bld) 3.0 % Normal 0-5 [facility] Comment on above: Order Comment: CLEAN CATCH Performed By: #### L 400.0001, L501.0900 #### [facility] [address] [place], [address] Erythrocyte distribution width (RBC) [Ratio] 13.1 % Normal 11.6-14.6 [facility] Comment on above: Order Comment: CLEAN CATCH Performed By: #### L 400.0001, L501.0900 #### [facility] [address] [place], [address] Hematocrit (Bld) [Volume fraction] 42.6 % Normal 37-47 [facility] Comment on above: Order Comment: CLEAN CATCH Performed By: #### L 400.0001, L501.0900 #### [facility] [address] [place], [address] Hemoglobin (Bld) [Mass/Vol] 14.3 g/dL Normal 12.0-15.0 [facility] Comment on above: Order Comment: CLEAN CATCH Performed By: #### L 400.0001, L501.0900 #### [facility] [address] [place], [address] IG% 0.200 Normal 0.0-0.9 [facility] Comment on above: Order Comment: CLEAN CATCH Result Comment: IG% - Immature Granulocytes (promyelocytes, myelocytes and metamyelocytes) > 1% indicates that a LEFT SHIFT is Present. Performed By: #### L 400.0001, L501.0900 #### [facility] [address] [place], [address] Lymphocytes/100 WBC (Bld) 29.2 % Normal 19-41 [facility] Comment on above: Order Comment: CLEAN CATCH Performed By: #### L 400.0001, L501.0900 #### [facility] [address] [place], [address] MCH (RBC) [Entitic mass] 28.8 pg Normal 27.0-32.0 [facility] Comment on above: Order Comment: CLEAN CATCH Performed By: #### L 400.0001, L501.0900 #### [facility] [address] [place], [address] MCHC (RBC) [Mass/Vol] 33.6 g/dL Normal 32-36 [facility] Comment on above: Order Comment: CLEAN CATCH Performed By: #### L 400.0001, L501.0900 #### [facility] [address] [place], [address] MCV (RBC) [Entitic vol] 85.9 fL Normal 81-99 [facility] Comment on above: Order Comment: CLEAN CATCH Performed By: #### L 400.0001, L501.0900 #### [facility] [address] [place], [address] Monocytes/100 WBC (Bld) 5.5 % Normal 0-10 [facility] Comment on above: Order Comment: CLEAN CATCH Performed By: #### L 400.0001, L501.0900 #### [facility] [address] [place], [address] Neutrophils/100 WBC (Bld) 61.3 % Normal 47-70 [facility] Comment on above: Order Comment: CLEAN CATCH Performed By: #### L 400.0001, L501.0900 #### [facility] [address] [place], [address] Nucleated RBC (Bld) [#/Vol] 0 10*3/uL Normal 0-5 [facility] Comment on above: Order Comment: CLEAN CATCH Performed By: #### L 400.0001, L501.0900 #### [facility] [address] [place], [address] Platelet mean volume (Bld) [Entitic vol] 10.4 fL Normal 6.2-12.0 [facility] Comment on above: Order Comment: CLEAN CATCH Performed By: #### L 400.0001, L501.0900 #### [facility] [address] [place], [address] Platelets (Bld) [#/Vol] 293 10*3/uL Normal 150-450 [facility] Comment on above: Order Comment: CLEAN CATCH Performed By: #### L 400.0001, L501.0900 #### [facility] [address] [place], [address] RBC (Bld) [#/Vol] 4.96 10*6/uL Normal 4.2-5.4 [facility] Comment on above: Order Comment: CLEAN CATCH Performed By: #### L 400.0001, L501.0900 #### [facility] [address] [place], [address] RDW SD 40.0 fl Normal 35.1-43.9 [facility] Comment on above: Order Comment: CLEAN CATCH Performed By: #### L 400.0001, L501.0900 #### [facility] [address] [place], [address] WBC (Bld) [#/Vol] 8.5 10*3/uL Normal 4.4-11.0 [facility] Comment on above: Order Comment: CLEAN CATCH Performed By: #### L 400.0001, L501.0900 #### [facility] [address] [place], [address] Calculated very low density lipoprotein (VLDL) cholesterol measurementOrdered By: Dwayne Gibson on 09-13-2024 Calculated very low density lipoprotein (VLDL) cholesterol measurement 28 mg/dL 5-40 [facility] Eosinophil percentageOrdered By: Dwayne Gibson on 09-13-2024 Eosinophils/100 WBC (Bld) 3.0 % 0-5 [facility] Erythrocyte distribution wid th ratioOrdered By: Dwayne Gibson on 09-13-2024 Erythrocyte distribution width (RBC) [Ratio] 13.1 % 11.6-14.6 [facility] Erythrocyte distribution wid th standard deviationOrdered By: Dwayne Gibson on 09-13-2024 Erythrocyte distribution width (RBC) [Ratio] 40.0 fl 35.1-43.9 [facility] Hematocrit Auto (Bld) [Volum e fraction]Ordered By: Dwayne Gibson on 09-13-2024 Hematocrit (Bld) [Volume fraction] 42.6 % 37-47 [facility] Hemoglobin A1con 09-13-2024 HbA1c (Bld) [Mass fraction] 6.1 % High <=5.6 [facility] Comment on above: Order Comment: CLEAN CATCH Result Comment: Norm al < 5.7 % Prediabetic 5.7 - 6.4 % Diabetic >or= 6.5 % Please note range changes. Performed By: #### L 400.0001, L501.0900 #### [facility] [address] [place], [place], [address] Hemoglobin A1c percentageOrd ered By: Dwayne Gibson on 09-13-2024 HbA1c (Bld) [Mass fraction] 6.1 % High <5.7 [facility] Comment on above: Normal < 5.7 % Predi abetic 5.7 - 6.4 % Diabetic >or= 6.5 % Please note range changes. Hemoglobin measurementOrdere d By: Dwayne Gibson on 09-13-2024 Hemoglobin (Bld) [Mass/Vol] 14.3 g/dL 12.0-15.0 [facility] Immature granulocytes/100 WB C Auto (Bld)Ordered By: Dwayne Gibson on 09-13-2024 Immature granulocytes/100 WBC (Bld) 0.200 % 0.0-0.9 [facility] Comment on above: IG% - Immature Granu locytes (promyelocytes, myelocytes and metamyelocytes) > 1% indicates that a LEFT SHIFT is Present. LDL calc ser/plasOrdered By: Dwayne Gibson on 09-13-2024 Cholesterol in LDL [Mass/Vol] 59 mg/dL [facility] Comment on above: Dqkioqhutk=862-590 m g/dL & Higher Apgo=280 mg/dL or greater Lipid Profileon 09-13-2024 CHOL:HDL 2.47 Normal [facility] Comment on above: Order Comment: CLEAN CATCH Performed By: #### L 400.0001, L501.0900 #### [facility] [address] [place], [address] Cholesterol [Mass/Vol] 146 mg/dL Normal <=200 [facility] Comment on above: Order Comment: CLEAN CATCH Result Comment: Chol esterol level, Desirable <200 mg/dL Borderline high cholesterol 200-239 mg/dL High cholesterol >=240 mg/dL Recommendations of the NCEP Adult Treatment Panel for the following risk-cutoff thresholds for the [place] population. Performed By: #### L 400.0001, L501.0900 #### [facility] [address] [place], [address] Cholesterol in HDL [Mass/Vol] 59 mg/dL Normal [facility] Comment on above: Order Comment: CLEAN CATCH Result Comment: Viviana onal Cholesterol Education Program (NCEP) guidelines: <40 mg/dL: Low HDL-cholesterol (major risk factor for CHD) >= 60 mg/dL: High HDL-cholesterol (negative risk factor for CHD) HDL-cholesterol is affected by a number of factors, e.g. smoking, exercise, hormones, sex and age. Performed By: #### L 400.0001, L501.0900 #### [facility] [address] [place], [address] Cholesterol in LDL [Mass/Vol] 59 mg/dL Normal [facility] Comment on above: Order Comment: CLEAN CATCH Result Comment: Bord vagrkm=095-615 mg/dL Higher Oklf=079 mg/dL or greater Performed By: #### L 400.0001, L501.0900 #### [facility] [address] [place], [address] Cholesterol in VLDL [Mass/Vol] 28 mg/dL Normal 5-40 [facility] Comment on above: Order Comment: CLEAN CATCH Performed By: #### L 400.0001, L501.0900 #### [facility] [address] [place], [address] Triglyceride [Mass/Vol] 140 mg/dL Normal [facility] Comment on above: Order Comment: CLEAN CATCH Result Comment: The drugs N-Acetylcysteine and Metamizole may falsely depress this assay. Normal range: <150 mg/dL Borderline High: 150-199 mg/dL High: 200-499 mg/dL Very High: >500 mg/dL Performed By: #### L 400.0001, L501.0900 #### [facility] [address] [place], [address] MCV (mean corpuscular volume ) determinationOrdered By: Dwayne Gibson on 09-13-2024 MCV (RBC) [Entitic vol] 85.9 fL 81-99 [facility] Mean corpuscular hemoglobin (MCH) determinationOrdered By: Dwayne Gibson on 09-13-2024 MCH (RBC) [Entitic mass] 28.8 pg 27.0-32.0 [facility] Mean corpuscular hemoglobin concentration (MCHC) determinationOrdered By: Dwayne Gibson on 09-13-2024 MCHC (RBC) [Mass/Vol] 33.6 g/dL 32-36 [facility] Mean platelet volume determi nationOrdered By: Dwayne Gibson on 09-13-2024 Platelet mean volume (Bld) [Entitic vol] 10.4 fL 6.2-12.0 [facility] Monocyte percentageOrdered B y: Dwayne Gibson on 09-13-2024 Monocytes/100 WBC (Bld) 5.5 % 0-10 [facility] Neutrophil percentageOrdered By: Dwayne Gibson on 09-13-2024 Neutrophils/100 WBC (Bld) 61.3 % 47-70 [facility] Nucleated red blood cell per centageOrdered By: Dwayne Gibson on 09-13-2024 Nucleated RBC/100 WBC (Bld) [Ratio] 0 % 0-5 [facility] Platelet countOrdered By: Sadie Gibson on 09-13-2024 Platelets (Bld) [#/Vol] 293 10*3/uL 150-450 [facility] RBC Auto (Bld) [#/Vol]Ordere d By: Dwayne Gibson on 09-13-2024 RBC (Bld) [#/Vol] 4.96 10*6/uL 4.2-5.4 [facility] Screening total cholesterol/ high density lipoprotein (HDL) cholesterol ratioOrdered By: Dwayne Gibson on 09-13-2024 Cholesterol.total/Chol esterol in HDL [Mass ratio] 2.47 {ratio} [facility] Serum or plasma cholesterol in HDL measurement (mass/volume)Ordered By: Dwayne Gibson on 09-13-2024 Cholesterol in HDL [Mass/Vol] 59 mg/dL >40 [facility] Comment on above: National Cholesterol Education Program (NCEP) guidelines:<40 mg/dL: Low HDL-cholesterol (major risk factor for CHD)>= 60 mg/dL: High HDL-cholesterol (negative risk factor for CHD)HDL-cholesterol is affected by a number of factors, e.g. smoking, exercise, hormones, sex and age. Serum or plasma cholesterol measurement (mass/volume)Ordered By: Dwayne Gibson on 09-13-2024 Cholesterol [Mass/Vol] 146 mg/dL <201 [facility] Comment on above: Cholesterol level, D esirable <200 mg/dLBorderline high cholesterol 200-239 mg/dLHigh cholesterol >=240 mg/dLRecommendations of the NCEP Adult Treatment Panel for the following risk-cutoff thresholds for the [place] population. Triglycerides measurementOrd ered By: Dwayne Gibson on 09-13-2024 Triglyceride [Mass/Vol] 140 mg/dL <199 [facility] Comment on above: The drugs N-Acetylcy steine and Metamizole may falsely depress this assay. Normal range: <150 mg/dLBorderline High: 150-199 mg/dLHigh: 200-499 mg/dLVery High: >500 mg/dL Vitamin D,25 Hydroxyon 09-13 Vitamin D 25-OH 50.2 ng/mL Normal 30-100 [facility] Comment on above: Order Comment: Order Date: 06/15/24 Order Info: [id number] - LIPID Result Comment: Dimple min D Status Deficiency: <20 ng/mL (50nmol/L) Insufficiency: 20-30 ng/mL (50-75 nmol/L) Sufficiency: 30-100 ng/mL (75-250 nmol/L) Toxicity: >100 ng/mL (>250 nmol/L) Performed By: #### L 506.1001 #### [facility] [address] [place], [address] White blood cell (WBC) count Ordered By: Dwayne Gibson on 09-13-2024 WBC (Bld) [#/Vol] 8.5 10*3/uL 4.4-11.0 [facility] Emergency Department Summary on 06-25-2024 Emergency Department Summary [facility] Medical Records Department [address] [place] [address] Emergency Department Summary 06/25/24 MR#: [id number] Acct: [id number] Name: ЕКАТЕРИНА BA Rep #: [id number] : 1960 64 From: Odilon Guillaume MD PCP: Dr. Dwayne Gibson MD Status:PRE ER Location: ED HPI History of Present Illness Chief Complaint: Back Detail of Chief Complaint: Right upper back Informant: patient Onset/Context/Timing Onset: Yesterday Context: Gradual Onset Chronic pain exacerbated by: Movement Quality: Sharp, Aching and Burning Location: See diagram Current Severity: 5/10 Maximum Severity: 8/10 Worsened by: improves with Movement Relieved by: Medications (Tylenol, heat) Associated Symptoms Associated Symptoms: Negative for Numbness, Tingling, Fever, Abdominal Pain, Dysuria, Urinary Retention, Urinary Incontinence or Constipation Narrative Narrative: Patient is a 64-year-old female with past medical history significant for chest pain, chronic gastritis, GERD with esophagitis, cholecystectomy, left nephrectomy, diverticulosis, recent diagnosis of osteoporosis who developed gradual onset of upper right thoracic back pain yesterday radiating to right shoulder. Of note, patient reports she was started on Fosamax 2 days prior to arrival. Pain is worse with palpation and movement. Denies numbness tingling. Patient denies injury. Patient denies fever, chills, chest pain, and shortness of breath. Patient with chronic cough. Denies increasing cough. Patient reports she did have some diarrhea 2 days ago and has been okay since. She did take some dicyclomine at that time. Denies hematuria, dysuria, and urinary frequency. Denies nausea and vomiting. Patient reports she has been using heat and Tylenol with mild relief. She denies any recent travel. Prior similar symptoms: No Recent Illness/Hospitalization: No PFSH PFS Medical History Hiatal hernia Chronic gastritis GERD with esophagitis Abdominal pain Abnormal CT scan, gastrointestinal tract Hyperlipidemia Diverticulosis Gastric ulcer Sacroiliitis Tobacco abuse GERD (gastroesophageal reflux disease) Home Medications ???Medication ???Instructions ???Recorded ???Last Taken ???Type omeprazole 20 mg capsule,delayed 20 mg PO DAILY 02/03/19 02/08/19 0 5:00 History release alendronate 70 mg tablet 70 mg PO QWEEK 06/25/24 Unknown Hi story ergocalciferol (vitamin D2) 1,250 1,250 mcg PO QWEEK 06/25/24 Unkno wn History mcg (50,000 unit) capsule metaxalone 800 mg tablet 800 mg PO TID 7 days #21 tabs 05/29 12/22 Unknown Rx rosuvastatin 20 mg tablet 20 mg PO QPM 06/25/24 Unknown Hist ory valsartan 80 mg tablet 80 mg PO DAILY 06/25/24 Unknown Hi story Allergy/AdvReac Type Severity Reaction Status Date / Time No Known Allergies Allergy Verified 06/25/24 10:31 Family History Father Myocardial infarction Heart disease Colon cancer Mother Cancer duodenal Surgical History History of colonoscopy ( 2015) History of esophagogastroduodenoscopy (EGD) ( 2008) History of left nephrectomy History of tubal ligation history of lysis of adhesions History of cholecystectomy History of appendectomy Social History Smoking Status: Current every day smoker tobacco type: cigarettes ROS ROS ED ROS Narrative Patient denies dizziness, lightheadedness, fever, chills, weakness. Patient does report she has chronic night sweats. Constitutional Constitutional ED: Reports sweats; Denies chills or fever(s) Eyes Eyes: Denies blurry vision, change in vision or diplopia ENT ENT ED: Denies ear pain, rhinorrhea or sore throat Cardiovascular Cardiovascular: Denies chest pain, orthopnea, palpitations, paroxysmal nocturnal dyspnea or racing heartbeat Respiratory/Chest Respiratory/Chest: Reports other Details: Chronic cough ; Denies dyspnea, dyspnea on exertion, orthopnea or paroxysmal nocturnal dyspnea Gastrointestinal Gastrointestinal: Denies abdominal pain, constipation, diarrhea, nausea or vomiting Genitourinary Genitourinary ED: Denies dysuria, hematuria or urinary frequency Musculoskeletal Musculoskeletal: Reports back pain; Denies arthralgias, myalgias or neck pain Integumentary Denies abscess, Abrasions or rash Neurologic Neurologic: Denies headache(s), paresthesias or weakness Psychiatric Psychiatric: Denies anxiety or depression EXAM Physical Exam Narrative Exam Narrative: Patient sitting on edge of ED cot, awake and alert. at bedside. Patient pleasant and cooperative. No acute distress. Const Vital Signs: 06/25/24 10:32 06/25/24 (more content not included)... Normal [facility] Bone density reportOrdered B y: Ming Andrade on 06-16-2024 Study report Skeletal system DXA [facility] Imaging Services [address] [place] [address] Dexa Bone Density Study MR#: [id number] Acct: [id number] Name: ЕКАТЕРИНА BA Rep #: [id number] : 1960 F 64 From: Raman Andrade DO PCP: Dr. Dwayne Gibson MD Status: RE G CLI Study:Dexa Bone Density Study Date of Exam: 06/15/24 Exam# [id number] Ordering Dr: Dwayne Gibson MD PROCEDURE: DEXA BONE DENSITY STUDY 06/15/2024 REASON FOR EXAM: Postmenopausal. Osteoporosis screening. TECHNIQUE: DXA scan of the lumbar spine and left hip, using make and model. REFERENCE LINKS: ISCD Adult Positions COMPARISON: None available FINDINGS: BMD and T-SCORES Lumbar spine: (0.789) g/cm2, T-Score -2.8 L3 through L4 Left femoral neck: (0.704) g/cm2, T-Score -1.3 Femoral neck comparison data not recommended for monitoring change. Left total hip: (0.843) g/cm2, T-Score -0.8 Right femoral neck: (0.672) g/cm2, T-Score -1.6 Femoral neck comparison data not recommended for monitoring change. Right total hip: (0.838) g/cm2, T-Score -0.9 Fracture Risk Calculation: See exam for details of tool utilized. 10 Year Probability of Fracture: Major Osteoporotic Fracture: 8.7% Hip Fracture: 1.0% BD/Dexa Bone Density Study IMPRESSION: Osteoporosis. Recommend follow-up as clinically warranted. Reading [facility] CC: Dr. Dwayne Gibson MD ~ Shoveler: Signed [facility] Breast imaging reportOrdered By: Keny Branch on 06-15-2024 Study report [facility] Imaging Services [address] [place] [address] SCRN MAMM (CAD)W/RUBY BILAT MR#: [id number] Acct: [id number] Name: ЕКАТЕРИНА BA Rep #: [id number] : 1960 F 64 From: Odell Branch MD PCP: Dr. Dwayne Gibson MD Status: RE G CLI Study:SCRN MAMM (CAD)W/RUBY BILAT Date of Exa m: 06/15/24 Exam# [id number] Ordering Dr: Dwayne Gibson MD EXAM: SCRN MAMM (CAD)W/RUBY BILAT 06/15/2024 CLINICAL HISTORY: F, Age 64 y/o , SCREENING. No family history. BREAST CANCER RISK ASSESSMENT: Not assessed. TECHNIQUE: Bilateral screening digital breast tomosynthesis with 2D and 3D images. Computeraided detection. COMPARISON: Prior exam(s) dating back to comparison is made with prior study dated 2021.. FINDINGS: Bilateral Breast Mammographic Findings: No significant masses, calcifications or other abnormalities are identified. TISSUE DENSITY: The breast tissue is composed of scattered area of fibroglandular density. No suspicious masses, areas of developing architectural distortion, or suspicious calcifications. There has been no significant interval change. BI/SCRN MAMM (CAD)W/RUBY BILAT IMPRESSION: Right Breast: BIRADS 1 NEGATIVE. Left Breast: BIRADS 1 NEGATIVE. OVERALL FINAL ASSESSMENT: BIRADS 1 NEGATIVE RECOMMENDATION: ROUTINE ANNUAL FOLLOW-UP Bilateral in 1 Year Normal interval followup mammograms are recommended in 12 months. A letter with findings and recommendations will be mailed to the patient. Reading Location: [facility] CC: Dr. Dwayne Gibson MD ~ Shoveler: Signed [facility] Dexa Bone Density Studyon Dexa Bone Density Study [facility] Imaging Services [address] [place] [address] [id number] Dexa Bone Density Study MR#: [id number] Acct: [id number] Name: ЕКАТЕРИНА BA Rep #: [id number] : 1960 F 64 From: Ming Benitez i, DO PCP: Dr. Dwayne Gibson MD Status: REG CLI Study: Dexa Bone Density Study Date of Exam: 06/15/24 Exam# [id number] Ordering Dr: Dwayne Gibson MD PROCEDURE: DEXA BONE DENSITY STUDY 06/15/2024 REASON FOR EXAM: Postmenopausal. Osteoporosis screening. TECHNIQUE: DXA scan of the lumbar spine and left hip, using make and model. REFERENCE LINKS: ISCD Adult Positions COMPARISON: None available FINDINGS: BMD and T-SCORES Lumbar spine: (0.789) g/cm2, T-Score -2.8 L3 through L4 Left femoral neck: (0.704) g/cm2, T-Score -1.3 Femoral neck comparison data not recommended for monitoring change. Left total hip: (0.843) g/cm2, T-Score -0.8 Right femoral neck: (0.672) g/cm2, T-Score -1.6 Femoral neck comparison data not recommended for monitoring change. Right total hip: (0.838) g/cm2, T-Score -0.9 Fracture Risk Calculation: See exam for details of tool utilized. 10 Year Probability of Fracture: Major Osteoporotic Fracture: 8.7% Hip Fracture: 1.0% BD/Dexa Bone Density Study IMPRESSION: Osteoporosis. Recommend follow-up as clinically warranted. Reading Location: [place] CC: Dr. Dwayne Gibson MD Shoveler: Signed Normal [facility] SCRN MAMM (CAD)W/RUBY BILATo n 06-15-2024 SCRN MAMM (CAD)W/RUBY BILAT [facility] Imaging Services [address] [place], [place] [address] SCRN MAMM (CAD)W/RUBY BILAT MR#: [id number] Acct: [id number] Name: ЕКАТЕРИНА BA Rep #: [id number] : 1960 F 64 From: Keny wilhelm MD PCP: Dr. Dwayne Gibson MD Status: REG [facility] Study: SCRN MAMM (CAD)W/RUBY BILAT Date of Exam: 05/28 12/22 Exam# [id number] Ordering Dr: Dwayne Gibson MD EXAM: SCRN MAMM (CAD)W/RUBY BILAT 06/15/2024 CLINICAL HISTORY: F, Age 64 y/o , SCREENING. No family history. BREAST CANCER RISK ASSESSMENT: Not assessed. TECHNIQUE: Bilateral screening digital breast tomosynthesis with 2D and 3D images. Computer aided detection. COMPARISON: Prior exam(s) dating back to comparison is made with prior study dated December 05, 2021.. FINDINGS: Bilateral Breast Mammographic Findings: No significant masses, calcifications or other abnormalities are identified. TISSUE DENSITY: The breast tissue is composed of scattered area of fibroglandular density. No suspicious masses, areas of developing architectural distortion, or suspicious calcifications. There has been no significant interval change. BI/SCRN MAMM (CAD)W/RUBY BILAT IMPRESSION: Right Breast: BIRADS 1 NEGATIVE. Left Breast: BIRADS 1 NEGATIVE. OVERALL FINAL ASSESSMENT: BIRADS 1 NEGATIVE RECOMMENDATION: ROUTINE ANNUAL FOLLOW-UP Bilateral in 1 Year Normal interval followup mammograms are recommended in 12 months. A letter with findings and recommendations will be mailed to the patient. Reading Location: [place] [address] CC: Dr. Dwayne Gibson MD Shoveler: Signed Normal [facility] Absolute lymphocyte countOrd ered By: Dwayne Gibson on 06-07-2024 Lymphocytes Auto (Unsp spec) [#/Vol] 1.98 10*3/uL 0.83-4.51 [facility] Absolute neutrophil countOrd ered By: Dwayne Gibson on 06-07-2024 Neutrophils (Bld) [#/Vol] 4.7 10*3/uL 2.0-7.7 [facility] Anion gap in Serum or Plasma Ordered By: Dwayne Gibson on 06-07-2024 Anion gap [Moles/Vol] 12 mmol/L 5-15 [facility] Automated lymphocyte count a s percentage of total leukocytesOrdered By: Dwayne Gibson on 06-07-2024 Lymphocytes/100 WBC Auto (Unsp spec) 26.9 % 19- [facility] BUN/creatinine ratioOrdered By: Dwayne Gibson on 06-07-2024 Urea nitrogen/Creatinine [Mass ratio] 17.8 mg/mg 10- [facility] Basophil percentageOrdered B y: Dwayne Gibson on 06-07-2024 Basophils/100 WBC (Bld) 0.5 % 0-1 [facility] Bilirubin Test strip Ql (U)O rdered By: Dwayne Gibson on 06-07-2024 Bilirubin Ql (U) Negative Negative [facility] Bilirubin, totalOrdered By: Dwayne Gibson on 06-07-2024 Bilirubin [Mass/Vol] 0.28 mg/dL 0.00-1.30 [facility] CBC W/Diff, Automatedon 05-28 Absolute Lymph 1.98 X10 3/uL Normal 0.83-4.51 [facility] Comment on above: Order Comment: CLEAN CATCH Performed By: #### L 400.0001, L501.0900 #### [facility] Laboratory [address] [place], [address] Absolute Neut 4.7 X10 3/uL Normal 2.0-7.7 [facility] Comment on above: Order Comment: CLEAN CATCH Performed By: #### L 400.0001, L501.0900 #### [facility] [address] [place], [address] Basophils/100 WBC (Bld) 0.5 % Normal 0-1 [facility] Comment on above: Order Comment: CLEAN CATCH Performed By: #### L 400.0001, L501.0900 #### [facility] [address] [place], [address] Eosinophils/100 WBC (Bld) 3.1 % Normal 0-5 [facility] Comment on above: Order Comment: CLEAN CATCH Performed By: #### L 400.0001, L501.0900 #### [facility] [address] [place], [address] Erythrocyte distribution width (RBC) [Ratio] 13.0 % Normal 11.6-14.6 [facility] Comment on above: Order Comment: CLEAN CATCH Performed By: #### L 400.0001, L501.0900 #### [facility] [address] [place], [address] Hematocrit (Bld) [Volume fraction] 42.3 % Normal 37-47 [facility] Comment on above: Order Comment: CLEAN CATCH Performed By: #### L 400.0001, L501.0900 #### [facility] [address] [place], [address] Hemoglobin (Bld) [Mass/Vol] 13.8 g/dL Normal 12.0-15.0 [facility] Comment on above: Order Comment: CLEAN CATCH Performed By: #### L 400.0001, L501.0900 #### [facility] [address] [place], [address] IG% 0.400 Normal 0.0-0.9 [facility] Comment on above: Order Comment: CLEAN CATCH Result Comment: IG% - Immature Granulocytes (promyelocytes, myelocytes and metamyelocytes) > 1% indicates that a LEFT SHIFT is Present. Performed By: #### L 400.0001, L501.0900 #### [facility] [address] [place], [address] Lymphocytes/100 WBC (Bld) 26.9 % Normal 19-41 [facility] Comment on above: Order Comment: CLEAN CATCH Performed By: #### L 400.0001, L501.0900 #### [facility] [address] [place], [address] MCH (RBC) [Entitic mass] 28.8 pg Normal 27.0-32.0 [facility] Comment on above: Order Comment: CLEAN CATCH Performed By: #### L 400.0001, L501.0900 #### [facility] [address] [place], [address] MCHC (RBC) [Mass/Vol] 32.6 g/dL Normal 32-36 [facility] Comment on above: Order Comment: CLEAN CATCH Performed By: #### L 400.0001, L501.0900 #### [facility] [address] [place], [address] MCV (RBC) [Entitic vol] 88.3 fL Normal 81-99 [facility] Comment on above: Order Comment: CLEAN CATCH Performed By: #### L 400.0001, L501.0900 #### [facility] [address] [place], [address] Monocytes/100 WBC (Bld) 4.8 % Normal 0-10 [facility] Comment on above: Order Comment: CLEAN CATCH Performed By: #### L 400.0001, L501.0900 #### [facility] [address] [place], [address] Neutrophils/100 WBC (Bld) 64.3 % Normal 47-70 [facility] Comment on above: Order Comment: CLEAN CATCH Performed By: #### L 400.0001, L501.0900 #### [facility] [address] [place], [address] Nucleated RBC (Bld) [#/Vol] 0 10*3/uL Normal 0-5 [facility] Comment on above: Order Comment: CLEAN CATCH Performed By: #### L 400.0001, L501.0900 #### [facility] [address] [place], [address] Platelet mean volume (Bld) [Entitic vol] 9.9 fL Normal 6.2-12.0 [facility] Comment on above: Order Comment: CLEAN CATCH Performed By: #### L 400.0001, L501.0900 #### [facility] [address] [place], [address] Platelets (Bld) [#/Vol] 267 10*3/uL Normal 150-450 [facility] Comment on above: Order Comment: CLEAN CATCH Performed By: #### L 400.0001, L501.0900 #### [facility] [address] [place], [address] RBC (Bld) [#/Vol] 4.79 10*6/uL Normal 4.2-5.4 [facility] Comment on above: Order Comment: CLEAN CATCH Performed By: #### L 400.0001, L501.0900 #### [facility] [address] [place], [address] RDW SD 42.2 fl Normal 35.1-43.9 [facility] Comment on above: Order Comment: CLEAN CATCH Performed By: #### L 400.0001, L501.0900 #### [facility] [address] [place], [address] WBC (Bld) [#/Vol] 7.4 10*3/uL Normal 4.4-11.0 [facility] Comment on above: Order Comment: CLEAN CATCH Performed By: #### L 400.0001, L501.0900 #### [facility] [address] [place], [address] Calculated very low density lipoprotein (VLDL) cholesterol measurementOrdered By: Dwayne Gibson on 06-07-2024 Calculated very low density lipoprotein (VLDL) cholesterol measurement 34 mg/dL 5-40 [facility] VLDL Cholesterol 34 mg/dL -40 [facility] Carbon dioxide, total [Moles /volume] in Central venous bloodOrdered By: Dwayne Gibson on 06-07-2024 CO2 [Moles/Vol] 22.7 mmol/L 21.0-32.0 [facility] Chloride assayOrdered By: Sadie Gibson on 06-07-2024 Chloride [Moles/Vol] 103 mmol/L 98-108 [facility] Comprehensive Metabolic Prof ilon 06-07-2024 Albumin [Mass/Vol] 3.9 g/dL Normal 3.4-4.8 [facility] Comment on above: Order Comment: Order Date: 03/18/24Order Info: [id number] - CMPOrder Info: - LIPIDOrder Info: [id number] - PHOSOrder Info: - MG Performed By: #### L 400.0001, L501.0900 #### [facility] [address] [place], [address] Albumin/Globulin [Mass ratio] 1.3 {ratio} Normal 0.9-2.4 [facility] Comment on above: Order Comment: Order Date: 03/18/24Order Info: [id number]- - CMPOrder Info: [id number] - LIPIDOrder Info: [id number] - PHOSOrder Info: - MG Performed By: #### L 400.0001, L501.0900 #### [facility] [address] [place], [address] ALK PHOS 85 U/L Normal 35-104 [facility] Comment on above: Order Comment: Order Date: 03/18/24Order Info: [id number] - CMPOrder Info: [id number] - LIPIDOrder Info: [id number] - PHOSOrder Info: - MG Performed By: #### L 400.0001, L501.0900 #### [facility] [address] [place], [address] ALT [Catalytic activity/Vol] 19 U/L Normal <=34 [facility] Comment on above: Order Comment: Order Date: 03/18/24Order Info: [id number] - CMPOrder Info: [id number] - LIPIDOrder Info: [id number] - PHOSOrder Info: [id number] - MG Performed By: #### L 400.0001, L501.0900 #### [facility] [address] [place], [address] AST [Catalytic activity/Vol] 21 U/L Normal <=31 [facility] Comment on above: Order Comment: Order Date: 03/18/24Order Info: [id number] - CMPOrder Info: [id number] - LIPIDOrder Info: [id number]- - PHOSOrder Info: [id number] - MG Performed By: #### L 400.0001, L501.0900 #### [facility] [address] [place], [address] Bilirubin [Mass/Vol] 0.28 mg/dL Normal 0.00-1.30 [facility] Comment on above: Order Comment: Order Date: 03/18/24Order Info: [id number] - CMPOrder Info: [id number] - LIPIDOrder Info: [id number] - PHOSOrder Info: [id number] - MG Performed By: #### L 400.0001, L501.0900 #### [facility] [address] [place], [address] BUN/CRE 17.8 RATIO Normal 10-20 [facility] Comment on above: Order Comment: Order Date: 03/18/24Order Info: [id number] - CMPOrder Info: [id number] - LIPIDOrder Info: [id number] - PHOSOrder Info: [id number] - MG Performed By: #### L 400.0001, L501.0900 #### [facility] [address] [place], [address] Calcium [Mass/Vol] 8.8 mg/dL Normal 7.6-11.0 [facility] Comment on above: Order Comment: Order Date: 03/18/24Order Info: [id number] - CMPOrder Info: [id number] - LIPIDOrder Info: [id number] - PHOSOrder Info: - MG Performed By: #### L 400.0001, L501.0900 #### [facility] [address] [place], [place], [address] (902) Chloride [Moles/Vol] 103 mmol/L Normal 98-108 [facility] Comment on above: Order Comment: Order Date: 03/18/24Order Info: [id number] - CMPOrder Info: [id number] - LIPIDOrder Info: [id number] - PHOSOrder Info: - MG Performed By: #### L 400.0001, L501.0900 #### [facility] [address] [place], [place], [address] CO2 [Moles/Vol] 22.7 mmol/L Normal 21.0-32.0 [facility] Comment on above: Order Comment: Order Date: 03/18/24Order Info: [id number]- - CMPOrder Info: [id number] - LIPIDOrder Info: [id number] - PHOSOrder Info: - MG Performed By: #### L 400.0001, L501.0900 #### [facility] [address] [place], [place], [address] Creatinine [Mass/Vol] 0.94 mg/dL Normal 0.70-1.20 [facility] Comment on above: Order Comment: Order Date: 03/18/24Order Info: [id number] - CMPOrder Info: [id number] - LIPIDOrder Info: [id number] - PHOSOrder Info: - MG Performed By: #### L 400.0001, L501.0900 #### [facility] [address] [place], [address] GAP 12 Normal 5-15 [facility] Comment on above: Order Comment: Order Date: 03/18/24Order Info: [id number] - CMPOrder Info: [id number] - LIPIDOrder Info: [id number] - PHOSOrder Info: [id number] - MG Performed By: #### L 400.0001, L501.0900 #### [facility] [address] [place], [address] GFR/1.73 sq M.predicted among non-blacks MDRD (S/P/Bld) [Vol rate/Area] 67 mL/min/{1.73_m2} Normal >60 [facility] Comment on above: Order Comment: Order Date: 03/18/24Order Info: [id number] - CMPOrder Info: [id number] - LIPIDOrder Info: [id number] - PHOSOrder Info: [id number] - MG Result Comment: mL/m in/1.73m2 CKD-EPI Creatinine Equation (2020) Performed By: #### L 400.0001, L501.0900 #### [facility] [address] [place], [address] Globulin (S) [Mass/Vol] 3.1 g/dL Normal 2.2-4.2 [facility] Comment on above: Order Comment: Order Date: 03/18/24Order Info: 86-1 - CMPOrder Info: [id number] - LIPIDOrder Info: [id number] - PHOSOrder Info: [id number] - MG Performed By: #### L 400.0001, L501.0900 #### [facility] [address] [place], [address] Glucose [Mass/Vol] 113 mg/dL High 70-99 [facility] Comment on above: Order Comment: Order Date: 03/18/24Order Info: [id number] - CMPOrder Info: [id number] - LIPIDOrder Info: [id number] - PHOSOrder Info: [id number] - MG Performed By: #### L 400.0001, L501.0900 #### [facility] [address] [place], [address] Potassium [Moles/Vol] 4.1 mmol/L Normal 3.3-5.1 [facility] Comment on above: Order Comment: Order Date: 03/18/24Order Info: [id number] - CMPOrder Info: [id number] - LIPIDOrder Info: [id number] - PHOSOrder Info: - MG Performed By: #### L 400.0001, L501.0900 #### [facility] [address] [place], [address] Sodium [Moles/Vol] 138 mmol/L Normal 133-145 [facility] Comment on above: Order Comment: Order Date: 03/18/24Order Info: 86-1 - CMPOrder Info: [id number] - LIPIDOrder Info: [id number] - PHOSOrder Info: - MG Performed By: #### L 400.0001, L501.0900 #### [facility] [address] [place], [address] T PROT 7.0 g/dL Normal 5.9-8.4 [facility] Comment on above: Order Comment: Order Date: 03/18/24Order Info: [id number] - CMPOrder Info: [id number] - LIPIDOrder Info: [id number] - PHOSOrder Info: - MG Performed By: #### L 400.0001, L501.0900 #### [facility] [address] [place], [address] Urea nitrogen [Mass/Vol] 17 mg/dL Normal 4-19 [facility] Comment on above: Order Comment: Order Date: 03/18/24Order Info: [id number] - CMPOrder Info: [id number] - LIPIDOrder Info: [id number] - PHOSOrder Info: - MG Performed By: #### L 400.0001, L501.0900 #### [facility] [address] [place], [address] Creatinine Unsp time (U) [Ma ss/Vol]Ordered By: Dwayne Gibson on 06-07-2024 Creatinine (U) [Mass/Vol] 13.90 mg/dL Low 28-217 [facility] Eosinophil percentageOrdered By: Dwayne Gibson on 06-07-2024 Eosinophils/100 WBC (Bld) 3.1 % 0-5 [facility] Epithelial cells.squamous LM Ql (Urine sed)Ordered By: Dwayne Gibson on 06-07-2024 Epithelial cells.squamous LM.HPF (Urine sed) [#/Area] 0 /[HPF] 5-10 [facility] Erythrocyte distribution wid th ratioOrdered By: Dwayne Gibson on 06-07-2024 Erythrocyte distribution width (RBC) [Ratio] 13.0 % 11.6-14.6 [facility] Erythrocyte distribution wid th standard deviationOrdered By: Dwayne Gibson on 06-07-2024 Erythrocyte distribution width (RBC) [Entitic vol] 42.2 fL 35.1-43.9 [facility] Erythrocyte distribution width (RBC) [Ratio] 42.2 fl 35.1-43.9 [facility] GFR/1.73 sq M.predicted tamara g non-blacks MDRD (S/P/Bld) [Vol rate/Area]Ordered By: Dwayne Gibson on 06-07-2024 Estimated GFR (MDRD) Non-Af Amer 67 >60 [facility] Comment on above: mL/min/1.73m2 CKD-EP I Creatinine Equation (2020) Glomerular filtration rate ( GFR) estimation/1.73 sq m using serum, plasma, or whole bOrdered By: Dwayne Gibson on 06-07-2024 GFR/1.73 sq M.predicted among non-blacks MDRD (S/P/Bld) [Vol rate/Area] 67 mL/min/{1.73_m2} >60 [facility] Comment on above: mL/min/1.73m2 CKD-EP I Creatinine Equation (2020) Glucose Ql (U)Ordered By: Sadie Gibson on 06-07-2024 Urine Glucose (UA) Normal mg/dl Normal [facility] Hematocrit Auto (Bld) [Volum e fraction]Ordered By: Dwayne Gibson on 06-07-2024 Hematocrit (Bld) [Volume fraction] 42.3 % 37-47 [facility] Hemoglobin A1con 06-07-2024 HbA1c (Bld) [Mass fraction] 6.0 % Normal <=5.6 [facility] Comment on above: Order Comment: CLEAN CATCH Performed By: #### L 400.0001, L501.0900 #### [facility] [address] [place], [address] Hemoglobin A1c percentageOrd ered By: Dwayne Gibson on 06-07-2024 HbA1c (Bld) [Mass fraction] 6.0 % >5.7 [facility] Hemoglobin measurementOrdere d By: Dwayne Gbison on 06-07-2024 Hemoglobin (Bld) [Mass/Vol] 13.8 g/dL 12.0-15.0 [facility] Immature granulocytes/100 WB C Auto (Bld)Ordered By: Dwayne Gibson on 06-07-2024 Immature granulocytes/100 WBC (Bld) 0.400 % 0.0-0.9 [facility] Comment on above: IG% - Immature Granu locytes (promyelocytes, myelocytes and metamyelocytes) > 1% indicates that a LEFT SHIFT is Present. Ketones Test strip Ql (U)Ord ered By: Dwayne Gibson on 06-07-2024 Ketones Ql (U) Negative Negative [facility] L506.1001on 06-07-2024 Vitamin D 25-OH 15.8 ng/mL Low 30-100 [facility] Comment on above: Order Comment: Order Date: 03/18/24 Order Info: [id number] - CMP Order Info: [id number] - LIPID Order Info: [id number] - PHOS Order Info: [id number] - MG Result Comment: Dimple min D Status Deficiency: <20 ng/mL (50nmol/L) Insufficiency: 20-30 ng/mL (50-75 nmol/L) Sufficiency: 30-100 ng/mL (75-250 nmol/L) Toxicity: >100 ng/mL (>250 nmol/L) Performed By: #### L 506.1001 #### [facility] [address] [place], [address] LDL calc ser/plasOrdered By: Dwayne Gibson on 06-07-2024 Cholesterol in LDL [Mass/Vol] 63 mg/dL [facility] Comment on above: Fhsddtiyyf=352-110 m g/dL & Higher Tksh=765 mg/dL or greater LDL Cholesterol, Calculated 63 mg/dL [facility] Comment on above: Hgodmoikgs=518-139 m g/dL & Higher Haso=418 mg/dL or greater Laboratory - Chemistry and C hemistry - challengeOrdered By: Dwayne Gibson on 06-07-2024 AST [Catalytic activity/Vol] 21 U/L <32 [facility] Lipid Profileon 06-07-2024 CHOL:HDL 2.56 Normal [facility] Comment on above: Order Comment: CLEAN CATCH Performed By: #### L 400.0001, L501.0900 #### [facility] [address] [place], [address] Cholesterol [Mass/Vol] 160 mg/dL Normal <=200 [facility] Comment on above: Order Comment: CLEAN CATCH Result Comment: Chol esterol level, Desirable <200 mg/dL Borderline high cholesterol 200-239 mg/dL High cholesterol >=240 mg/dL Recommendations of the NCEP Adult Treatment Panel for the following risk-cutoff thresholds for the [place] population. Performed By: #### L 400.0001, L501.0900 #### [facility] [address] [place], [address] Cholesterol in HDL [Mass/Vol] 63 mg/dL Normal [facility] Comment on above: Order Comment: CLEAN CATCH Result Comment: Viviana onal Cholesterol Education Program (NCEP) guidelines: <40 mg/dL: Low HDL-cholesterol (major risk factor for CHD) >= 60 mg/dL: High HDL-cholesterol (negative risk factor for CHD) HDL-cholesterol is affected by a number of factors, e.g. smoking, exercise, hormones, sex and age. Performed By: #### L 400.0001, L501.0900 #### [facility] [address] [place], [address] Cholesterol in LDL [Mass/Vol] 63 mg/dL Normal [facility] Comment on above: Order Comment: CLEAN CATCH Result Comment: Bord uqkjju=266-419 mg/dL Higher Orwe=411 mg/dL or greater Performed By: #### L 400.0001, L501.0900 #### [facility] [address] [place], [address] Cholesterol in VLDL [Mass/Vol] 34 mg/dL Normal 5-40 [facility] Comment on above: Order Comment: CLEAN CATCH Performed By: #### L 400.0001, L501.0900 #### [facility] [address] [place], [address] Triglyceride [Mass/Vol] 171 mg/dL Normal [facility] Comment on above: Order Comment: CLEAN CATCH Result Comment: The drugs N-Acetylcysteine and Metamizole may falsely depress this assay. Normal range: <150 mg/dL Borderline High: 150-199 mg/dL High: 200-499 mg/dL Very High: >500 mg/dL Performed By: #### L 400.0001, L501.0900 #### [facility] [address] [place], [address] Lymphocytes Auto (Unsp spec) [#/Vol]Ordered By: Dwayne Gibson on 06-07-2024 Lymphocytes (Bld) [#/Vol] 1.98 10*3/uL 0.83-4.51 [facility] Lymphocytes/100 WBC Auto (Un sp spec)Ordered By: Dwayne Gibson on 06-07-2024 Lymphocytes/100 WBC (Bld) 26.9 % 19-41 [facility] MCV (mean corpuscular volume ) determinationOrdered By: Dwayne Gibson on 06-07-2024 MCV (RBC) [Entitic vol] 88.3 fL 81-99 [facility] Magnesiumon 06-07-2024 Magnesium [Mass/Vol] 1.4 mg/dL Low 1.5-2.2 [facility] Comment on above: Order Comment: Order Date: 03/18/24Order Info: [id number] - CMPOrder Info: [id number] - LIPIDOrder Info: [id number] - PHOSOrder Info: [id number] - MG Performed By: #### L 400.0001, L501.0900 #### [facility] [place], [address] Magnesium (Unsp spec) [Mass/ Vol]Ordered By: Dwayne Gibson on 06-07-2024 Magnesium [Mass/Vol] 1.4 mg/dL Low 1.5-2.2 [facility] Magnesium measurement (mass/ volume)Ordered By: Dwayne Gibson on 06-07-2024 Magnesium (Unsp spec) [Mass/Vol] 1.4 mg/dL Low 1.5-2.2 [facility] Mean corpuscular hemoglobin (MCH) determinationOrdered By: Dwayne Gibson on 06-07-2024 MCH (RBC) [Entitic mass] 28.8 pg 27.0-32.0 [facility] Mean corpuscular hemoglobin concentration (MCHC) determinationOrdered By: Dwayne Gibson on 06-07-2024 MCHC (RBC) [Mass/Vol] 32.6 g/dL 32-36 [facility] Mean platelet volume determi nationOrdered By: Dwayne Gibson on 06-07-2024 Platelet mean volume (Bld) [Entitic vol] 9.9 fL 6.2-12.0 [facility] Microscopic analysis of urin e for red blood cells (RBC)Ordered By: Dwayne Gibson on 06-07-2024 Microscopic analysis of urine for red blood cells (RBC) 0-5 SEEN /hpf 0-5 [facility] Urine RBC 0-5 SEEN /hpf 0-5 [facility] Monocyte percentageOrdered B y: Dwayne Gibson on 06-07-2024 Monocytes/100 WBC (Bld) 4.8 % 0-10 [facility] Mucus LM Ql (Urine sed)Order ed By: Dwayne Gibson on 06-07-2024 Mucus Ql (Urine sed) 0 SEEN /hpf [facility] Neutrophil percentageOrdered By: Dwayne Gibson on 06-07-2024 Neutrophils/100 WBC (Bld) 64.3 % 47-70 [facility] Nitrite Test strip Ql (U)Ord ered By: Dwayne Gibson on 06-07-2024 Nitrite Ql (U) Negative Negative [facility] Nucleated red blood cell per centageOrdered By: Dwayne Gibson on 06-07-2024 Nucleated RBC/100 WBC (Bld) [Ratio] 0 % 0-5 [facility] PTH intactOrdered By: Dwayne ricks on 06-07-2024 Parathyroid Hormone (Intact) 57 pg/mL [facility] PTHINon 06-07-2024 PTH 57 pg/mL Normal [facility] Comment on above: Order Comment: CLEAN CATCH Performed By: #### L 400.0001, L501.0900 #### [facility] [address] [place], [address] Phosphoruson 06-07-2024 Phosphate [Mass/Vol] 2.8 mg/dL Normal 2.7-4.5 [facility] Comment on above: Order Comment: Order Date: 03/18/24Order Info: [id number] - CMPOrder Info: [id number] - LIPIDOrder Info: [id number] - PHOSOrder Info: [id number] - MG Performed By: #### L 400.0001, L501.0900 #### [facility] [address] [place], [address] Platelet countOrdered By: Sadie Gibson on 06-07-2024 Platelets (Bld) [#/Vol] 267 10*3/uL 150-450 [facility] Potassium (Unsp spec) [Mass/ Vol]Ordered By: Dwayne Gibson on 06-07-2024 Potassium [Moles/Vol] 4.1 mmol/L 3.3-5.1 [facility] Potassium measurement (mass/ volume)Ordered By: Dwayne Gibson on 06-07-2024 Potassium (Unsp spec) [Mass/Vol] 4.1 mmol/L 3.3-5.1 [facility] Protein Test strip Ql (U)Ord ered By: Dwayne Gibson on 06-07-2024 Protein Ql (U) 30 mg/dl High Negative [facility] Protein+Creatinine Ratio,Uri neon 06-07-2024 PROT:CRE RATIO 1662 mg/g CRE High 0-200 [facility] Comment on above: Performed By: #### L 400.0001, L501.0900 #### [facility] [address] [place], [address] Protein (U) [Mass/Vol] 23.1 mg/dL High 0.0-12.0 [facility] Comment on above: Performed By: #### L 400.0001, L501.0900 #### [facility] [address] [place], [address] UR CREAT 13.90 mg/dL Low 28-217 [facility] Comment on above: Performed By: #### L 400.0001, L501.0900 #### [facility] [address] [place], [address] Protein/Creatinine (U) [Mass ratio]Ordered By: Dwayne Gibson on 06-07-2024 Urine Protein/Creatinine Ratio 1662 mg/g CRE High 0-200 [facility] RBC Auto (Bld) [#/Vol]Ordere d By: Dwayne Gibson on 06-07-2024 RBC (Bld) [#/Vol] 4.79 10*6/uL 4.2-5.4 [facility] Random urine creatinine julee urement (mass/volume)Ordered By: Dwayne Gibson on 06-07-2024 Creatinine Unsp time (U) [Mass/Vol] 13.90 mg/dL Low [facility] Screening total cholesterol/ high density lipoprotein (HDL) cholesterol ratioOrdered By: Dwayne Gibson on 06-07-2024 Cholesterol.total/Chol esterol in HDL [Mass ratio] 2.56 {ratio} [facility] Serum creatinine measurement (mass/volume)Ordered By: Dwayne Gibson on 06-07-2024 Creatinine [Mass/Vol] 0.94 mg/dL 0.70-1.20 [facility] Serum globulin measurementOr dered By: Dwayne Gibson on 06-07-2024 Globulin (S) [Mass/Vol] 3.1 g/dL 2.2-4.2 [facility] Serum glucose measurement (m ass/volume)Ordered By: Dwayne Gibson on 06-07-2024 Glucose [Mass/Vol] 113 mg/dL High 70-99 [facility] Serum or plasma alanine salmon otransferase (ALT) measurementOrdered By: Dwayne Gibson on 06-07-2024 ALT [Catalytic activity/Vol] 19 U/L <35 [facility] Serum or plasma albumin julee urement (mass/volume)Ordered By: Dwayne Gibson on 06-07-2024 Albumin [Mass/Vol] 3.9 g/dL 3.4-4.8 [facility] Serum or plasma albumin/glob ulin mass ratioOrdered By: Dwayne Gibson on 06-07-2024 Albumin/Globulin [Mass ratio] 1.3 {ratio} 0.9-2.4 [facility] Serum or plasma alkaline wagner sphatase measurementOrdered By: Dwayne Gibson on 06-07-2024 ALP [Catalytic activity/Vol] 85 U/L 35-104 [facility] Serum or plasma calcium julee urement (mass/volume)Ordered By: Dwayne Gibson on 06-07-2024 Calcium [Mass/Vol] 8.8 mg/dL 7.6-11.0 [facility] Serum or plasma cholesterol in HDL measurement (mass/volume)Ordered By: Dwayne Gibson on 06-07-2024 Cholesterol in HDL [Mass/Vol] 63 mg/dL >40 [facility] Comment on above: National Cholesterol Education Program (NCEP) guidelines:<40 mg/dL: Low HDL-cholesterol (major risk factor for CHD)>= 60 mg/dL: High HDL-cholesterol (negative risk factor for CHD)HDL-cholesterol is affected by a number of factors, e.g. smoking, exercise, hormones, sex and age. Serum or plasma cholesterol measurement (mass/volume)Ordered By: Dwayne Gibson on 06-07-2024 Cholesterol [Mass/Vol] 160 mg/dL <201 [facility] Comment on above: Cholesterol level, D esirable <200 mg/dLBorderline high cholesterol 200-239 mg/dLHigh cholesterol >=240 mg/dLRecommendations of the NCEP Adult Treatment Panel for the following risk-cutoff thresholds for the [place] population. Serum or plasma urea nitroge n measurement (mass/volume)Ordered By: Dwayne Gibson on 06-07-2024 Urea nitrogen [Mass/Vol] 17 mg/dL 4-19 [facility] Serum phosphorus measurement Ordered By: Dwayne Gibson on 06-07-2024 Phosphorus Level 2.8 mg/dL 2.7-4.5 [facility] Sodium levelOrdered By: Dwayne Gibson on 06-07-2024 Sodium [Moles/Vol] 138 mmol/L 133-145 [facility] Squamous epithelial cells de tection in urine sediment by light microscopyOrdered By: Dwayne Gibosn on 06-07-2024 Epithelial cells.squamous LM Ql (Urine sed) 0-5 SEEN /hpf - [facility] Total proteinOrdered By: Efrain Gibson on 06-07-2024 Protein [Mass/Vol] 7.0 g/dL 5.9-8.4 [facility] Triglycerides measurementOrd ered By: Dwayne Gibson on 06-07-2024 Triglyceride [Mass/Vol] 171 mg/dL <199 [facility] Comment on above: The drugs N-Acetylcy steine and Metamizole may falsely depress this assay. Normal range: <150 mg/dLBorderline High: 150-199 mg/dLHigh: 200-499 mg/dLVery High: >500 mg/dL Urinalysis, Completeon 06-07 EPI,SQUAMOUS 0-5 SEEN Normal 5- [facility] Comment on above: Order Comment: CLEAN CATCH Performed By: #### L 400.0001, L501.0900 #### [facility] [address] [place], [address] RBC 0-5 SEEN Normal 0-5 [facility] Comment on above: Order Comment: CLEAN CATCH Performed By: #### L 400.0001, L501.0900 #### [facility] [address] [place], [address] BACTERIA 0 SEEN Normal None Seen [facility] Comment on above: Order Comment: CLEAN CATCH Performed By: #### L 400.0001, L501.0900 #### [facility] [address] [place], [address] Mucus Ql (Urine sed) 0 SEEN Normal [facility] Comment on above: Order Comment: CLEAN CATCH Performed By: #### L 400.0001, L501.0900 #### [facility] [address] [place], [address] WBC 0 SEEN Normal 0-5 [facility] Comment on above: Order Comment: CLEAN CATCH Performed By: #### L 400.0001, L501.0900 #### [facility] [address] [place], [address] Urine blood detectionOrdered By: Dwayne Gibson on 06-07-2024 Urine Occult Blood 25 /ul High Negative [facility] Urine clarityOrdered By: Efrain Gibson on 06-07-2024 Clarity (U) Clear Clear [facility] Urine color determinationOrd ered By: Dwayne Gibson on 06-07-2024 Color (U) Straw Yellow [facility] Urine glucose detectionOrder ed By: Dwayne Gibson on 06-07-2024 Glucose Ql (U) Normal mg/dl Normal [facility] Urine leukocyte esterase det ection by dipstickOrdered By: Dwayne Gibson on 06-07-2024 Leukocyte esterase Test strip Ql (U) Negative Negative [facility] Urine pHOrdered By: Dwayne mejía on 06-07-2024 pH (U) 7.0 [pH] 5.0 - 8.0 [facility] Urine protein measurement (m ass/volume)Ordered By: Dwayne Gibson on 06-07-2024 Protein (U) [Mass/Vol] 23.1 mg/dL High 0.0-12.0 [facility] Urine protein/creatinine mas s ratioOrdered By: Dwayne Gibson on 06-07-2024 Protein/Creatinine (U) [Mass ratio] 1662 mg/g CRE High 0-200 [facility] Urine sediment bacteria coun t by microscopy (number/high power field)Ordered By: Dwayne Gibson on 06-07-2024 Bacteria LM.HPF (Urine sed) [#/Area] 0 /[HPF] None Seen [facility] Urine specific gravity measu rementOrdered By: Dwayne Gibson on 06-07-2024 Specific gravity (U) [Rel density] 1.005 1.002-1.03 0 [facility] Urine urobilinogen measureme ntOrdered By: Dwayne Gibson on 06-07-2024 Urobilinogen Ql (U) Normal mg/dl Normal [facility] Urobilinogen Ql (U)Ordered B y: Dwayne Gibson on 06-07-2024 Urine Urobilinogen Normal mg/dl Normal [facility] Vitamin D, 25-hydroxyOrdered By: Dwayne Gibson on 06-07-2024 Vitamin D 25-Hydroxy 15.8 ng/mL Low 30-100 [facility] Comment on above: Vitamin D StatusDefi ciency: <20 ng/mL (50nmol/L)Insufficiency: 20-30 ng/mL (50-75 nmol/L)Sufficiency: 30-100 ng/mL (75-250 nmol/L)Toxicity: >100 ng/mL (>250 nmol/L) White blood cell (WBC) count Ordered By: Dwayne Gibson on 06-07-2024 WBC (Bld) [#/Vol] 7.4 10*3/uL 4.4-11.0 [facility] White blood cell countOrdere d By: Dwayne Gibson on 06-07-2024 Urine WBC 0 SEEN /hpf 0-5 [facility] White blood cell count 0 SEEN /hpf 0-5 [facility] Basic Metabolic Profile (BMP )on 03-14-2024 BUN/CRE 18.3 RATIO Normal 10-20 [facility] Comment on above: Order Comment: CLEAN CATCH Performed By: #### L 400.0001, L501.0900 #### [facility] [address] [place], [address] CA,Total 9.8 mg/dL Normal 8.5-10.1 [facility] Comment on above: Order Comment: CLEAN CATCH Performed By: #### L 400.0001, L501.0900 #### [facility] [address] [place], [address] Chloride [Moles/Vol] 104 mmol/L Normal 98-107 [facility] Comment on above: Order Comment: CLEAN CATCH Performed By: #### L 400.0001, L501.0900 #### [facility] [address] [place], [address] CO2 [Moles/Vol] 27.0 mmol/L Normal 21.0-32.0 [facility] Comment on above: Order Comment: CLEAN CATCH Performed By: #### L 400.0001, L501.0900 #### [facility] [address] [place], [address] Creatinine [Mass/Vol] 0.98 mg/dL Normal 0.55-1.02 [facility] Comment on above: Order Comment: CLEAN CATCH Result Comment: The validity of the calculated GFR GFRAA in patients over 70 years has not been determined. Clinical correlation is essential. Performed By: #### L 400.0001, L501.0900 #### [facility] [address] [place], [address] EST GFR - AA 73 mL/min Normal >60 [facility] Comment on above: Order Comment: CLEAN CATCH Result Comment: Afri can [place]ron[place] GFR Calc Performed By: #### L 400.0001, L501.0900 #### [facility] [address] [place], [address] GAP 7 Normal 5-15 [facility] Comment on above: Order Comment: CLEAN CATCH Performed By: #### L 400.0001, L501.0900 #### [facility] [address] [place], [address] GFR/1.73 sq M.predicted among non-blacks MDRD (S/P/Bld) [Vol rate/Area] 60 mL/min/{1.73_m2} Normal >60 [facility] Comment on above: Order Comment: CLEAN CATCH Result Comment: Non- GFR Calc Performed By: #### L 400.0001, L501.0900 #### [facility] [address] [place], [address] Glucose [Mass/Vol] 90 mg/dL Normal 74-106 [facility] Comment on above: Order Comment: CLEAN CATCH Performed By: #### L 400.0001, L501.0900 #### [facility] [address] [place], [address] Potassium [Moles/Vol] 3.8 mmol/L Normal 3.5-5.1 [facility] Comment on above: Order Comment: CLEAN CATCH Performed By: #### L 400.0001, L501.0900 #### [facility] [address] [place], [address] Sodium [Moles/Vol] 138 mmol/L Normal 136-145 [facility] Comment on above: Order Comment: CLEAN CATCH Performed By: #### L 400.0001, L501.0900 #### [facility] [address] [place], [address] Urea nitrogen [Mass/Vol] 18 mg/dL Normal 7-18 [facility] Comment on above: Order Comment: CLEAN CATCH Performed By: #### L 400.0001, L501.0900 #### [facility] [address] [place], [address] Blood urea nitrogen (BUN)/cr eatinine ratioOrdered By: Dwayne Gibson on 03-14-2024 Urea nitrogen/Creatinine [Mass ratio] 18.3 mg/mg 10-20 [facility] Carbon dioxide measurementOr dered By: Dwayne Gibson on 03-14-2024 CO2 [Moles/Vol] 27.0 mmol/L 21.0-32.0 [facility] Chloride measurementOrdered By: Dwayne Gibson on 03-14-2024 Chloride [Moles/Vol] 104 mmol/L 98-107 [facility] Estimated glomerular filtrat ion rate (GFR) AmericanOrdered By: Dwayne Gibson on 03-14-2024 Estimated GFR (MDRD) Amer 73 mL/min >60 [facility] Comment on above: GFR Calc Glomerular filtration rate ( GFR) estimationOrdered By: Dwayne Gibson on 03-14-2024 Estimated GFR (MDRD) Non-Af Amer 60 mL/min >60 [facility] Comment on above: Non- GFR Calc Glucose measurementOrdered B y: Dwayne Gibson on 03-14-2024 Glucose [Mass/Vol] 90 mg/dL 74-106 [facility] Potassium measurementOrdered By: Dwayne Gibson on 03-14-2024 Potassium [Moles/Vol] 3.8 mmol/L 3.5-5.1 [facility] Serum anion gap measurementO rdered By: Dwayne Gibson on 03-14-2024 Anion gap [Moles/Vol] 7 mmol/L 5-15 [facility] Serum or plasma calcium julee urement (mass/volume)Ordered By: Dwayne Gibson on 03-14-2024 Calcium [Mass/Vol] 9.8 mg/dL 8.5-10.1 [facility] Serum or plasma creatinine m easurement (mass/volume)Ordered By: Dwayne Gibson on 03-14-2024 Creatinine [Mass/Vol] 0.98 mg/dL 0.55-1.02 [facility] Comment on above: The validity of the calculated GFR & GFRAA in patients over 70 years has not been determined. Clinical correlation is essential. Serum or plasma urea nitroge n measurement (mass/volume)Ordered By: Dwayne Gibson on 03-14-2024 Urea nitrogen [Mass/Vol] 18 mg/dL 7-18 [facility] Sodium levelOrdered By: Dwayne Gibson on 03-14-2024 Sodium [Moles/Vol] 138 mmol/L 136-145 [facility] CBC W/Diff, Automatedon 09-0 Absolute Lymph 1.71 X10 3/uL Normal 0.83-4.51 [facility] Comment on above: Order Comment: Order Date: 12/03/23 Order Info: [id number] - CBCD Performed By: #### L 500.4050, L100.0100, L501.9985, L500.4100 #### [facility] [address] [place], [address] Absolute Neut 4.9 X10 3/uL Normal 2.0-7.7 [facility] Comment on above: Order Comment: Order Date: 12/03/23 Order Info: [id number] - CBCD Performed By: #### L 500.4050, L100.0100, L501.9985, L500.4100 #### [facility] [address] [place], [address] Basophils/100 WBC (Bld) 0.8 % Normal 0-1 [facility] Comment on above: Order Comment: Order Date: 12/03/23 Order Info: [id number] - CBCD Performed By: #### L 500.4050, L100.0100, L501.9985, L500.4100 #### [facility] [address] [place], [address] Eosinophils/100 WBC (Bld) 2.6 % Normal 0-5 [facility] Comment on above: Order Comment: Order Date: 12/03/23 Order Info: [id number] - CBCD Performed By: #### L 500.4050, L100.0100, L501.9985, L500.4100 #### [facility] [address] [place], [address] Erythrocyte distribution width (RBC) [Ratio] 12.9 % Normal 11.6-14.6 [facility] Comment on above: Order Comment: Order Date: 12/03/23 Order Info: [id number] - CBCD Performed By: #### L 500.4050, L100.0100, L501.9985, L500.4100 #### [facility] [address] [place], [address] Hematocrit (Bld) [Volume fraction] 41.0 % Normal 37-47 [facility] Comment on above: Order Comment: Order Date: 12/03/23 Order Info: [id number] - CBCD Performed By: #### L 500.4050, L100.0100, L501.9985, L500.4100 #### [facility] [address] [place], [address] Hemoglobin (Bld) [Mass/Vol] 13.3 g/dL Normal 12.0-15.0 [facility] Comment on above: Order Comment: Order Date: 12/03/23 Order Info: [id number] - CBCD Performed By: #### L 500.4050, L100.0100, L501.9985, L500.4100 #### [facility] [address] [place], [address] IG% 0.700 Normal 0.0-0.9 [facility] Comment on above: Order Comment: Order Date: 12/03/23 Order Info: [id number] - CBCD Result Comment: IG% - Immature Granulocytes (promyelocytes, myelocytes and metamyelocytes) > 1% indicates that a LEFT SHIFT is Present. Performed By: #### L 500.4050, L100.0100, L501.9985, L500.4100 #### [facility] [address] [place], [address] Lymphocytes/100 WBC (Bld) 23.6 % Normal 19-41 [facility] Comment on above: Order Comment: Order Date: 12/03/23 Order Info: [id number] - CBCD Performed By: #### L 500.4050, L100.0100, L501.9985, L500.4100 #### [facility] [address] [place], [address] MCH (RBC) [Entitic mass] 29.0 pg Normal 27.0-32.0 [facility] Comment on above: Order Comment: Order Date: 12/03/23 Order Info: [id number] - CBCD Performed By: #### L 500.4050, L100.0100, L501.9985, L500.4100 #### [facility] [address] [place], [address] MCHC (RBC) [Mass/Vol] 32.4 g/dL Normal 32-36 [facility] Comment on above: Order Comment: Order Date: 12/03/23 Order Info: [id number] - CBCD Performed By: #### L 500.4050, L100.0100, L501.9985, L500.4100 #### [facility] [address] [place], [address] MCV (RBC) [Entitic vol] 89.5 fL Normal 81-99 [facility] Comment on above: Order Comment: Order Date: 12/03/23 Order Info: [id number] - CBCD Performed By: #### L 500.4050, L100.0100, L501.9985, L500.4100 #### [facility] [address] [place], [address] Monocytes/100 WBC (Bld) 5.2 % Normal 0-10 [facility] Comment on above: Order Comment: Order Date: 12/03/23 Order Info: [id number] - CBCD Performed By: #### L 500.4050, L100.0100, L501.9985, L500.4100 #### [facility] [address] [place], [address] Neutrophils/100 WBC (Bld) 67.1 % Normal 47-70 [facility] Comment on above: Order Comment: Order Date: 12/03/23 Order Info: [id number] - CBCD Performed By: #### L 500.4050, L100.0100, L501.9985, L500.4100 #### [facility] [address] [place], [address] Nucleated RBC (Bld) [#/Vol] 0 10*3/uL Normal 0-5 [facility] Comment on above: Order Comment: Order Date: 12/03/23 Order Info: [id number] - CBCD Performed By: #### L 500.4050, L100.0100, L501.9985, L500.4100 #### [facility] [address] [place], [address] Platelet mean volume (Bld) [Entitic vol] 9.7 fL Normal 6.2-12.0 [facility] Comment on above: Order Comment: Order Date: 12/03/23 Order Info: [id number] - CBCD Performed By: #### L 500.4050, L100.0100, L501.9985, L500.4100 #### [facility] [address] [place], [address] Platelets (Bld) [#/Vol] 276 10*3/uL Normal 150-450 [facility] Comment on above: Order Comment: Order Date: 12/03/23 Order Info: [id number] - CBCD Performed By: #### L 500.4050, L100.0100, L501.9985, L500.4100 #### [facility] [address] [place], [address] RBC (Bld) [#/Vol] 4.58 10*6/uL Normal 4.2-5.4 [facility] Comment on above: Order Comment: Order Date: 12/03/23 Order Info: [id number] - CBCD Performed By: #### L 500.4050, L100.0100, L501.9985, L500.4100 #### [facility] [address] [place], [address] RDW SD 41.9 fl Normal 35.1-43.9 [facility] Comment on above: Order Comment: Order Date: 12/03/23 Order Info: [id number] - CBCD Performed By: #### L 500.4050, L100.0100, L501.9985, L500.4100 #### [facility] [address] [place], [address] WBC (Bld) [#/Vol] 7.3 10*3/uL Normal 4.4-11.0 [facility] Comment on above: Order Comment: Order Date: 12/03/23 Order Info: [id number] - CBCD Performed By: #### L 500.4050, L100.0100, L501.9985, L500.4100 #### [facility] [address] [place], [address] Comprehensive Metabolic Prof ilon 12-03-2023 Albumin [Mass/Vol] 3.2 g/dL Normal 3.2-5.0 [facility] Comment on above: Order Comment: Order Date: 12/03/23 Order Info: [id number] - CMP Order Info: [id number] - LIPID Performed By: #### L 500.4050, L100.0100, L501.9985, L500.4100 #### [facility] [address] [place], [address] Albumin/Globulin [Mass ratio] 0.8 {ratio} Low 0.9-2.4 [facility] Comment on above: Order Comment: Order Date: 12/03/23 Order Info: [id number] - CMP Order Info: [id number] - LIPID Performed By: #### L 500.4050, L100.0100, L501.9985, L500.4100 #### [facility] [address] [place], [address] ALK P 77 U/L Normal 45-117 [facility] Comment on above: Order Comment: Order Date: 12/03/23 Order Info: [id number] - CMP Order Info: [id number] - LIPID Performed By: #### L 500.4050, L100.0100, L501.9985, L500.4100 #### [facility] [address] [place], [address] ALT [Catalytic activity/Vol] 25 U/L Normal 13-56 [facility] Comment on above: Order Comment: Order Date: 12/03/23 Order Info: [id number] - CMP Order Info: [id number] - LIPID Performed By: #### L 500.4050, L100.0100, L501.9985, L500.4100 #### [facility] [address] [place], [address] AST [Catalytic activity/Vol] 17 U/L Normal 15-37 [facility] Comment on above: Order Comment: Order Date: 12/03/23 Order Info: [id number] - CMP Order Info: [id number] - LIPID Performed By: #### L 500.4050, L100.0100, L501.9985, L500.4100 #### [facility] [address] [place], [address] Bilirubin [Mass/Vol] 0.20 mg/dL Normal 0.20-1.00 [facility] Comment on above: Order Comment: Order Date: 12/03/23 Order Info: [id number] - CMP Order Info: [id number] - LIPID Result Comment: For patients on eltrombopag therapy, use of Dimension Harrold TBIL is not recommended. Performed By: #### L 500.4050, L100.0100, L501.9985, L500.4100 #### [facility] [address] [place], [address] BUN/CRE 22.8 RATIO High 10-20 [facility] Comment on above: Order Comment: Order Date: 12/03/23 Order Info: [id number] - CMP Order Info: [id number] - LIPID Performed By: #### L 500.4050, L100.0100, L501.9985, L500.4100 #### [facility] [address] [place], [address] CA,Total 9.2 mg/dL Normal 8.5-10.1 [facility] Comment on above: Order Comment: Order Date: 12/03/23 Order Info: [id number] - CMP Order Info: [id number] - LIPID Performed By: #### L 500.4050, L100.0100, L501.9985, L500.4100 #### [facility] [address] [place], [address] Chloride [Moles/Vol] 109 mmol/L High 98-107 [facility] Comment on above: Order Comment: Order Date: 12/03/23 Order Info: [id number] - CMP Order Info: [id number] - LIPID Performed By: #### L 500.4050, L100.0100, L501.9985, L500.4100 #### [facility] [address] [place], [address] CO2 [Moles/Vol] 23.0 mmol/L Normal 21.0-32.0 [facility] Comment on above: Order Comment: Order Date: 12/03/23 Order Info: [id number] - CMP Order Info: [id number] - LIPID Performed By: #### L 500.4050, L100.0100, L501.9985, L500.4100 #### [facility] [address] [place], [address] Creatinine [Mass/Vol] 1.01 mg/dL Normal 0.55-1.02 [facility] Comment on above: Order Comment: Order Date: 12/03/23 Order Info: [id number] - CMP Order Info: [id number] - LIPID Result Comment: The validity of the calculated GFR GFRAA in patients over 70 years has not been determined. Clinical correlation is essential. Performed By: #### L 500.4050, L100.0100, L501.9985, L500.4100 #### [facility] [address] [place], [address] EST GFR - AA 71 mL/min Normal >60 [facility] Comment on above: Order Comment: Order Date: 12/03/23 Order Info: [id number] - CMP Order Info: [id number] - LIPID Result Comment: Afri can Micronesian GFR Calc Performed By: #### L 500.4050, L100.0100, L501.9985, L500.4100 #### [facility] [address] [place], [address] GAP 7 Normal 5-15 [facility] Comment on above: Order Comment: Order Date: 12/03/23 Order Info: [id number] - CMP Order Info: [id number] - LIPID Performed By: #### L 500.4050, L100.0100, L501.9985, L500.4100 #### [facility] [address] [place], [address] GFR/1.73 sq M.predicted among non-blacks MDRD (S/P/Bld) [Vol rate/Area] 59 mL/min/{1.73_m2} Low >60 [facility] Comment on above: Order Comment: Order Date: 12/03/23 Order Info: [id number] - CMP Order Info: [id number] - LIPID Result Comment: Non- GFR Calc Performed By: #### L 500.4050, L100.0100, L501.9985, L500.4100 #### [facility] [address] [place], [address] Globulin (S) [Mass/Vol] 4.0 g/dL Normal 2.2-4.2 [facility] Comment on above: Order Comment: Order Date: 12/03/23 Order Info: [id number] - CMP Order Info: [id number] - LIPID Performed By: #### L 500.4050, L100.0100, L501.9985, L500.4100 #### [facility] [address] [place], [address] Glucose [Mass/Vol] 120 mg/dL High 74-106 [facility] Comment on above: Order Comment: Order Date: 12/03/23 Order Info: [id number] - CMP Order Info: [id number] - LIPID Result Comment: Fast ing Glucose result from 100 to 125 mg/dL suggests IMPAIRED HOMEOSTASIS per A.D.A. criteria. Performed By: #### L 500.4050, L100.0100, L501.9985, L500.4100 #### [facility] [address] [place], [address] Potassium [Moles/Vol] 4.2 mmol/L Normal 3.5-5.1 [facility] Comment on above: Order Comment: Order Date: 12/03/23 Order Info: [id number] - CMP Order Info: [id number] - LIPID Performed By: #### L 500.4050, L100.0100, L501.9985, L500.4100 #### [facility] [address] [place], [address] Sodium [Moles/Vol] 139 mmol/L Normal 136-145 [facility] Comment on above: Order Comment: Order Date: 12/03/23 Order Info: [id number] - CMP Order Info: [id number] - LIPID Performed By: #### L 500.4050, L100.0100, L501.9985, L500.4100 #### [facility] [address] [place], [address] T PROT 7.2 g/dL Normal 6.4-8.2 [facility] Comment on above: Order Comment: Order Date: 12/03/23 Order Info: [id number] - CMP Order Info: [id number] - LIPID Performed By: #### L 500.4050, L100.0100, L501.9985, L500.4100 #### [facility] [address] [place], [address] Urea nitrogen [Mass/Vol] 23 mg/dL High 7-18 [facility] Comment on above: Order Comment: Order Date: 12/03/23 Order Info: [id number] - CMP Order Info: [id number] - LIPID Performed By: #### L 500.4050, L100.0100, L501.9985, L500.4100 #### [facility] [address] [place], [address] Hemoglobin A1con 12-03-2023 HbA1c (Bld) [Mass fraction] 5.6 % Normal 3.8-5.6 [facility] Comment on above: Order Comment: CLEAN CATCH Result Comment: Norm al < 5.7 % Prediabetic 5.7 - 6.4 % Diabetic >or= 6.5 % Please note range changes. Performed By: #### L 400.0001, L501.0900 #### [facility] [address] [place], [address] Lipid Profileon 12-03-2023 Cholesterol [Mass/Vol] 153 mg/dL Normal 200 [facility] Comment on above: Order Comment: CLEAN CATCH Result Comment: <200 mg/dL Desirable 200-240 mg/dL Borderline >240 mg/dL High Risk Performed By: #### L 400.0001, L501.0900 #### [facility] [address] [place], [address] Cholesterol in HDL [Mass/Vol] 64 mg/dL Normal [facility] Comment on above: Order Comment: CLEAN CATCH Result Comment: The drugs N-Acetylcysteine and Metamizole may falsely depress this assay. Reference Range HDL <40 mg/dL Low HDL Cholesterol HDL >or= 60 mg/dL High HDL Cholesterol Performed By: #### L 400.0001, L501.0900 #### [facility] [address] [place], [address] Cholesterol in LDL [Mass/Vol] 60 mg/dL Normal 0-130 [facility] Comment on above: Order Comment: CLEAN CATCH Performed By: #### L 400.0001, L501.0900 #### [facility] [address] [place], [address] Cholesterol in VLDL [Mass/Vol] 29 mg/dL Normal 5-40 [facility] Comment on above: Order Comment: CLEAN CATCH Performed By: #### L 400.0001, L501.0900 #### [facility] [address] [facility] [address] [place], [place], [address] Triglyceride [Mass/Vol] 145 mg/dL Normal [facility] Comment on above: Order Comment: CLEAN CATCH Result Comment: The drugs N-Acetylcysteine and Metamizole may falsely depress this assay. Serum Triglycerides Reference Interval Normal <150 mg/dL Borderline high 150 - 199 mg/dL High 200 - 499 mg/dL Very High > or = 500 mg/dL Performed By: #### L 400.0001, L501.0900 #### [facility] [address] [place], [place], [id number] Absolute lymphocyte countOrd ered By: Dwayne Gibson on 07-30-2023 Lymphocytes Auto (Unsp spec) [#/Vol] 2.39 10*3/uL 0.83-4.51 [facility] Automated lymphocyte count a s percentage of total leukocytesOrdered By: Dwayne Gibson on 07-30-2023 Lymphocytes/100 WBC Auto (Unsp spec) 25.3 % 19-41 [facility] Basophil percentageOrdered B y: Dwayne Gibson on 07-30-2023 Basophil percentage 0-5 SEEN /hpf 0-5 [facility] Basophil percentage 2.5 mg/dL 2.5-4.9 [facility] Basophils/100 WBC (Bld) 0.7 % 0-1 [facility] Bilirubin [Mass/Vol] 0.40 mg/dL 0.20-1.00 [facility] Comment on above: For patients on eltr ombopag therapy, use of Dimension Harrold TBIL is not recommended. Chloride [Moles/Vol] 110 mmol/L 98-107 [facility] Cholesterol [Mass/Vol] 152 mg/dL <200 [facility] Comment on above: <200 mg/dL Desirable 200-240 mg/dL Borderline >240 mg/dL High Risk Eosinophils/100 WBC (Bld) 1.9 % 0-5 [facility] Glucose [Mass/Vol] 90 mg/dL 74-106 [facility] Hemoglobin (Bld) [Mass/Vol] 14.1 g/dL 12.0-15.0 [facility] Monocytes/100 WBC (Bld) 5.3 % 0-10 [facility] Neutrophils (Bld) [#/Vol] 6.3 10*3/uL 2.0-7.7 [facility] Neutrophils/100 WBC (Bld) 66.4 % 47-70 [facility] Potassium [Moles/Vol] 3.8 mmol/L 3.5-5.1 [facility] Protein [Mass/Vol] 7.4 g/dL 6.4-8.2 [facility] Sodium [Moles/Vol] 140 mmol/L 136-145 [facility] Triglyceride [Mass/Vol] 149 mg/dL <199 [facility] Comment on above: The drugs N-Acetylcy steine and Metamizole may falsely depress this assay.Serum Triglycerides Reference Interval Normal <150 mg/dL Borderline high 150 - 199 mg/dL High 200 - 499 mg/dL Very High > or = 500 mg/dL WBC (Bld) [#/Vol] 9.4 10*3/uL 4.4-11.0 [facility] Bilirubin Test strip Ql (U)O rdered By: Dwayne Gibson on 07-30-2023 Bilirubin Ql (U) Negative Negative [facility] Determination of erythrocyte mean corpuscular volume (MCV)Ordered By: Dwayne Gibson on 07-30-2023 MCV (RBC) [Entitic vol] 89.6 fL 81-99 [facility] Erythrocyte distribution wid th ratioOrdered By: Dwayne Gibson on 07-30-2023 Erythrocyte distribution width (RBC) [Ratio] 13.1 % 11.6-14.6 [facility] Erythrocyte distribution wid th standard deviationOrdered By: Dwayne Gibson on 07-30-2023 Erythrocyte distribution width (RBC) [Entitic vol] 42.8 fL 35.1-43.9 [facility] Hematocrit Auto (Bld) [Volum e fraction]Ordered By: Dwayne Gibson on 07-30-2023 Hematocrit (Bld) [Volume fraction] 42.9 % 37-47 [facility] Immature granulocytes/100 WB C Auto (Bld)Ordered By: Dwayne Gibson on 07-30-2023 Immature granulocytes/100 WBC (Bld) 0.400 % 0.0-0.9 [facility] Comment on above: IG% - Immature Granu locytes (promyelocytes, myelocytes and metamyelocytes) > 1% indicates that a LEFT SHIFT is Present. Ketones Test strip Ql (U)Ord ered By: Dwayne Gibson on 07-30-2023 Ketones Ql (U) Negative Negative [facility] - Chemistry and C hemistry - challengeOrdered By: Dwayne Gibson on 07-30-2023 Albumin/Globulin [Mass ratio] 1.1 {ratio} 0.9-2.4 [facility] ALP [Catalytic activity/Vol] 71 U/L 45-117 [facility] ALT [Catalytic activity/Vol] 36 U/L 13-56 [facility] Cholesterol in HDL [Mass/Vol] 69 mg/dL >40 [facility] Comment on above: The drugs N-Acetylcy steine and Metamizole may falsely depress this assay. Reference Range HDL <40 mg/dL Low HDL Cholesterol HDL >or= 60 mg/dL High HDL Cholesterol Cholesterol in LDL [Mass/Vol] 53 mg/dL 0-130 [facility] CO2 [Moles/Vol] 24.0 mmol/L 21.0-32.0 [facility] Globulin (S) [Mass/Vol] 3.5 g/dL 2.2-4.2 [facility] Urea nitrogen/Creatinine [Mass ratio] 17.3 mg/mg 10-20 [facility] - Hematology and Cell countsOrdered By: Dwayne Gibson on 07-30-2023 MCH (RBC) [Entitic mass] 29.4 pg 27.0-32.0 [facility] MCHC (RBC) [Mass/Vol] 32.9 g/dL 32-36 [facility] Nucleated RBC/100 WBC (Bld) [Ratio] 0 % 0-5 [facility] Platelet mean volume (Bld) [Entitic vol] 9.8 fL 6.2-12.0 [facility] Platelets (Bld) [#/Vol] 279 10*3/uL 150-450 [facility] Mucus LM Ql (Urine sed)Order ed By: Dwayne Gibson on 07-30-2023 Mucus Ql (Urine sed) 0 SEEN /hpf [facility] Nitrite Test strip Ql (U)Ord ered By: Dwayne Gibson on 07-30-2023 Nitrite Ql (U) Negative Negative [facility] No Panel InformationOrdered By: Dwayne Gibson on 07-30-2023 Urine RBC 0 SEEN /hpf 0-5 [facility] Estimated GFR (MDRD) Amer 69 mL/min >60 [facility] Comment on above: GFR Calc Estimated GFR (MDRD) Non-Af Amer 57 mL/min >60 [facility] Comment on above: Non- GFR Calc Parathyroid Hormone (Intact) 85.2 pg/mL 18.4-80.1 [facility] Vitamin D 25-Hydroxy 29.4 ng/mL [facility] Comment on above: Vitamin D 25(OH) Sta tus Range Deficiency <20 ng/mL (50nmol/L) Insufficiency 20 - 30 ng/mL (50 - 75 nmol/L) Sufficiency 30 - 100 ng/mL (75 - 250 nmol/L) Toxicity >100 ng/mL (>250 nmol/L) VLDL Cholesterol 30 mg/dL 5-40 [facility] Protein Test strip Ql (U)Ord ered By: Dwayne Gibson on 07-30-2023 Protein Ql (U) 100 mg/dl Negative [facility] RBC Auto (Bld) [#/Vol]Ordere d By: Dwayne Gibson on 07-30-2023 RBC (Bld) [#/Vol] 4.79 10*6/uL 4.2-5.4 [facility] Serum or plasma calcium julee urement (mass/volume)Ordered By: Dwayne Gibson on 07-30-2023 Calcium [Mass/Vol] 9.3 mg/dL 8.5-10.1 [facility] Serum or plasma creatinine m easurement (mass/volume)Ordered By: Dwayne Gibson on 07-30-2023 Creatinine [Mass/Vol] 1.04 mg/dL 0.55-1.02 [facility] Comment on above: The validity of the calculated GFR & GFRAA in patients over 70 years has not been determined. Clinical correlation is essential. Serum or plasma urea nitroge n measurement (mass/volume)Ordered By: Dwayne Gibson on 07-30-2023 Urea nitrogen [Mass/Vol] 18 mg/dL 7-18 [facility] Squamous epithelial cells de tection in urine sediment by light microscopyOrdered By: Dawyne Gibson on 07-30-2023 Epithelial cells.squamous LM Ql (Urine sed) 10-25 SEEN /hpf 5-10 [facility] Thin prep Papanicolaou smear with manual screeningOrdered By: Dwayne Gibson on 07-30-2023 Protein (U) [Mass/Vol] 61.8 mg/dL 0.0-11.8 [facility] Thin prep Papanicolaou smear with manual screening 3.9 g/dL 3.2-5.0 [facility] Thin prep Papanicolaou smear with manual screening 22 U/L 15-37 [facility] Thin prep Papanicolaou smear with manual screening 6 5-15 [facility] Urine blood detectionOrdered By: Dwayne Gibson on 07-30-2023 RBC Ql (U) 50 /ul Negative [facility] Urine clarityOrdered By: Efrain Gibson on 07-30-2023 Clarity (U) Clear Clear [facility] Urine color determinationOrd ered By: Dwayne Gibson on 07-30-2023 Color (U) Yellow Yellow [facility] Urine creatinine measurement (mass/volume)Ordered By: Dwayne Gibson on 07-30-2023 Creatinine (U) [Mass/Vol] 51.70 mg/dL NO RANGE EST. [facility] Urine glucose detectionOrder ed By: Dwayne Gibson on 07-30-2023 Glucose Ql (U) Normal mg/dl Normal [facility] Urine leukocyte esterase det ection by dipstickOrdered By: Dwayne Gibson on 07-30-2023 Leukocyte esterase Test strip Ql (U) 25 /ul Negative [facility] Urine pHOrdered By: Dwayne mejía on 07-30-2023 pH (U) 6.0 [pH] 5.0 - 8.0 [facility] Urine protein/creatinine mas s ratioOrdered By: Dwayne Gibson on 07-30-2023 Protein/Creatinine (U) [Mass ratio] 1195 mg/g CRE 0-200 [facility] Urine sediment bacteria coun t by microscopy (number/high power field)Ordered By: Dwayne Gibson on 07-30-2023 Bacteria LM.HPF (Urine sed) [#/Area] RARE /hpf None Seen [facility] Urine specific gravity measu rementOrdered By: Dwayne Gibson on 07-30-2023 Specific gravity (U) [Rel density] 1.010 1.002-1.03 0 [facility] Urine urobilinogen measureme ntOrdered By: Dwayne Gibson on 07-30-2023 Urobilinogen Ql (U) Normal mg/dl Normal [facility] Whole blood hemoglobin A1c/t otal hemoglobin ratio (mass fraction)Ordered By: Dwayne Gibson on 07-30-2023 HbA1c (Bld) [Mass fraction] 5.3 % 3.8-5.6 [facility] Comment on above: Normal < 5.7 % Predi abetic 5.7 - 6.4 % Diabetic >or= 6.5 % Please note range changes. Culture, urineOrdered By: Crystal Spivey on 04-27-2023 Bacteria identified Cx Nom (U) Mixed Gram Pos & Gram Neg Org [facility] Bacteria identified Cx Nom (U) Mixed Gram Pos & Gram Neg Org [facility] - Chemistry and C hemistry - challengeon 04-25-2023 Bilirubin Ql (U) Moderate (2+) [facility] Glucose Ql (U) Negative [facility] Ketones Ql (U) Negative [facility] pH (U) 5.0 [pH] [facility] Specific gravity (U) [Rel density] 1.020 [facility] Urobilinogen (U) [Mass/Vol] Negative [facility] [facility] Laboratory - Hematology and Cell countson 04-25-2023 Hemoglobin Ql (U) Moderate [facility] - Specimen inform ationon 04-25-2023 Clarity (U) Cloudy [facility] Color (U) Yellow [facility] - Urinalysison Nitrite Ql (U) Negative [facility] Protein Ql (U) 2+ [facility] No Panel Informationon 04-25 Urine Leukocytes Positive [facility] Urine Non-Hemolyzed Blood [facility] Basophil percentageOrdered B y: Dwayne Gibson on 10-20-2022 Chloride [Moles/Vol] 109 mmol/L 98-107 [facility] Glucose [Mass/Vol] 100 mg/dL 74-106 [facility] Comment on above: Fasting Glucose resu lt from 100 to 125 mg/dL suggests IMPAIRED HOMEOSTASIS per A.D.A. criteria. Potassium [Moles/Vol] 4.1 mmol/L 3.5-5.1 [facility] Sodium [Moles/Vol] 140 mmol/L 136-145 [facility] Laboratory - Chemistry and C hemistry - challengeOrdered By: Dwayne Gibson on 10-20-2022 CO2 [Moles/Vol] 24.0 mmol/L 21.0-32.0 [facility] Urea nitrogen/Creatinine [Mass ratio] 20.3 mg/mg 10- [facility] No Panel InformationOrdered By: Dwayne Gibson on 10-20-2022 Estimated GFR (MDRD) Amer 73 mL/min >60 [facility] Comment on above: GFR Calc Estimated GFR (MDRD) Non-Af Amer 60 mL/min >60 [facility] Comment on above: Non- GFR Calc Serum or plasma calcium julee urement (mass/volume)Ordered By: Dwayne Gibson on 10-20-2022 Calcium [Mass/Vol] 8.9 mg/dL 8.5-10.1 [facility] Serum or plasma creatinine m easurement (mass/volume)Ordered By: Dwayne Gibson on 10-20-2022 Creatinine [Mass/Vol] 0.99 mg/dL 0.55-1.02 [facility] Comment on above: The validity of the calculated GFR & GFRAA in patients over 70 years has not been determined. Clinical correlation is essential. Serum or plasma urea nitroge n measurement (mass/volume)Ordered By: Dwayne Gibson on 10-20-2022 Urea nitrogen [Mass/Vol] 20 mg/dL -18 [facility] Thin prep Papanicolaou smear with manual screeningOrdered By: Dwayne Gibson on 10-20-2022 Thin prep Papanicolaou smear with manual screening 7 5-15 [facility] Absolute lymphocyte countOrd ered By: Dwayne Gibson on 10-09-2022 Lymphocytes Auto (Unsp spec) [#/Vol] 1.72 10*3/uL 0.83-4.51 [facility] Basophil percentageOrdered B y: Dwayne Gibson on 10-09-2022 Basophils/100 WBC (Bld) 0.8 % 0-1 [facility] Bilirubin [Mass/Vol] 0.50 mg/dL 0.20-1.00 [facility] Comment on above: For patients on eltr ombopag therapy, use of Dimension [place] TBIL is not recommended. Chloride [Moles/Vol] 104 mmol/L 98-107 [facility] Cholesterol [Mass/Vol] 146 mg/dL <200 [facility] Comment on above: <200 mg/dL Desirable 200-240 mg/dL Borderline >240 mg/dL High Risk Eosinophils/100 WBC (Bld) 2.3 % 0-5 [facility] Glucose [Mass/Vol] 106 mg/dL 74-106 [facility] Comment on above: Fasting Glucose resu lt from 100 to 125 mg/dL suggests IMPAIRED HOMEOSTASIS per A.D.A. criteria. Neutrophils (Bld) [#/Vol] 7.0 10*3/uL 2.0-7.7 [facility] Neutrophils/100 WBC (Bld) 74.0 % 47-70 [facility] Potassium [Moles/Vol] 4.0 mmol/L 3.5-5.1 [facility] Protein [Mass/Vol] 7.2 g/dL 6.4-8.2 [facility] Sodium [Moles/Vol] 137 mmol/L 136-145 [facility] Triglyceride [Mass/Vol] 108 mg/dL <199 [facility] Comment on above: The drugs N-Acetylcy steine and Metamizole may falsely depress this assay.Serum Triglycerides Reference Interval Normal <150 mg/dL Borderline high 150 - 199 mg/dL High 200 - 499 mg/dL Very High > or = 500 mg/dL WBC (Bld) [#/Vol] 9.5 10*3/uL 4.4-11.0 [facility] Blood erythrocytes count (nu mber/volume)Ordered By: Dwayne Gibson on 10-09-2022 RBC (Bld) [#/Vol] 4.78 10*6/uL 4.2-5.4 [facility] Blood hemoglobin measurement (mass/volume)Ordered By: Dwayne Gibson on 10-09-2022 Hemoglobin (Bld) [Mass/Vol] 14.2 g/dL 12.0-15.0 [facility] Blood lymphocytes/100 leukoc ytesOrdered By: Dwayne Gibson on 10-09-2022 Lymphocytes/100 WBC (Bld) 18.2 % 19-41 [facility] Blood monocytes/100 leukocyt esOrdered By: Dwayne Gibson on 10-09-2022 Monocytes/100 WBC (Bld) 4.3 % 0-10 [facility] Blood platelet mean volumeOr dered By: Dwayne Gibson on 10-09-2022 Platelet mean volume (Bld) [Entitic vol] 10.0 fL 6.2-12.0 [facility] Determination of erythrocyte mean corpuscular volume (MCV)Ordered By: Dwayne Gibson on 10-09-2022 MCV (RBC) [Entitic vol] 91.6 fL 81-99 [facility] Hematocrit Auto (Bld) [Volum e fraction]Ordered By: Dwayne Gibson on 10-09-2022 Hematocrit (Bld) [Volume fraction] 43.8 % 37-47 [facility] - Chemistry and C hemistry - challengeOrdered By: Dwayne Gibson on 10-09-2022 ALP [Catalytic activity/Vol] 82 U/L 45-117 [facility] ALT [Catalytic activity/Vol] 29 U/L 13-56 [facility] CO2 [Moles/Vol] 24.0 mmol/L 21.0-32.0 [facility] Globulin (S) [Mass/Vol] 3.9 g/dL 2.2-4.2 [facility] Urea nitrogen/Creatinine [Mass ratio] 16.0 mg/mg 10-20 [facility] - Hematology and Cell countsOrdered By: Dwayne Gibson on 10-09-2022 Erythrocyte distribution width (RBC) [Entitic vol] 43.8 fL 35.1-43.9 [facility] Erythrocyte distribution width (RBC) [Ratio] 13.0 % 11.6-14.6 [facility] Immature granulocytes/100 WBC (Bld) 0.400 % 0.0-0.9 [facility] Comment on above: IG% - Immature Granu locytes (promyelocytes, myelocytes and metamyelocytes) > 1% indicates that a LEFT SHIFT is Present. MCH (RBC) [Entitic mass] 29.7 pg 27.0-32.0 [facility] Nucleated RBC/100 WBC (Bld) [Ratio] 0 % 0-5 [facility] MCHC Auto (RBC) [Mass/Vol]Or dered By: Dwayne Gibson on 10-09-2022 MCHC (RBC) [Mass/Vol] 32.4 g/dL 32-36 [facility] No Panel InformationOrdered By: Dwayne Gibson on 10-09-2022 Estimated GFR (MDRD) Amer 67 mL/min >60 [facility] Comment on above: GFR Calc Estimated GFR (MDRD) Non-Af Amer 56 mL/min >60 [facility] Comment on above: Non- GFR Calc Platelets bldOrdered By: Efrain Gibson on 10-09-2022 Platelets (Bld) [#/Vol] 258 10*3/uL 150-450 [facility] Serum or plasma albumin julee urement (mass/volume)Ordered By: Dwayne Gibson on 10-09-2022 Albumin [Mass/Vol] 3.3 g/dL 3.2-5.0 [facility] Serum or plasma albumin/glob ulin mass ratioOrdered By: Dwayne Gibson on 10-09-2022 Albumin/Globulin [Mass ratio] 0.8 {ratio} 0.9-2.4 [facility] Serum or plasma calcium julee urement (mass/volume)Ordered By: Dwayne Gibson on 10-09-2022 Calcium [Mass/Vol] 8.9 mg/dL 8.5-10.1 [facility] Serum or plasma cholesterol in HDL measurement (mass/volume)Ordered By: Dwayne Gibson on 10-09-2022 Cholesterol in HDL [Mass/Vol] 61 mg/dL >40 [facility] Comment on above: The drugs N-Acetylcy steine and Metamizole may falsely depress this assay. Reference Range HDL <40 mg/dL Low HDL Cholesterol HDL >or= 60 mg/dL High HDL Cholesterol Serum or plasma cholesterol in VLDL measurement (mass/volume)Ordered By: Dwayne Gibson on 10-09-2022 Cholesterol in VLDL [Mass/Vol] 22 mg/dL 5-40 [facility] Serum or plasma creatinine m easurement (mass/volume)Ordered By: Dwayne Gibson on 10-09-2022 Creatinine [Mass/Vol] 1.06 mg/dL 0.55-1.02 [facility] Comment on above: The validity of the calculated GFR & GFRAA in patients over 70 years has not been determined. Clinical correlation is essential. Serum or plasma low density lipoprotein (LDL) cholesterol measurement (mass/volume)Ordered By: Dwayne Gibson on 10-09-2022 Cholesterol in LDL [Mass/Vol] 63 mg/dL 0-130 [facility] Serum or plasma urea nitroge n measurement (mass/volume)Ordered By: Dwayne Gibson on 10-09-2022 Urea nitrogen [Mass/Vol] 17 mg/dL 7-18 [facility] Thin prep Papanicolaou smear with manual screeningOrdered By: Dwayne Gibson on 10-09-2022 Thin prep Papanicolaou smear with manual screening 21 U/L 15-37 [facility] Thin prep Papanicolaou smear with manual screening 9 5-15 [facility] Whole blood hemoglobin A1c/t otal hemoglobin ratio (mass fraction)Ordered By: Dwayne Gibson on 10-09-2022 HbA1c (Bld) [Mass fraction] 5.5 % 3.8-5.6 [facility] Comment on above: Normal < 5.7 % Predi abetic 5.7 - 6.4 % Diabetic >or= 6.5 % Please note range changes. Absolute lymphocyte countOrd ered By: Dr. Gibson on 06-13-2022 Lymphocytes Auto (Unsp spec) [#/Vol] 2.11 10*3/uL 0.83-4.51 [facility] Basophil percentageOrdered B y: Dr. Gibson on 06-13-2022 Basophils/100 WBC (Bld) 1.0 % 0-1 [facility] Bilirubin [Mass/Vol] 0.30 mg/dL 0.20-1.00 [facility] Comment on above: For patients on eltr ombopag therapy, use of Dimension [place] TBIL is not recommended. Chloride [Moles/Vol] 110 mmol/L 98-107 [facility] Cholesterol [Mass/Vol] 163 mg/dL <200 [facility] Comment on above: <200 mg/dL Desirable 200-240 mg/dL Borderline >240 mg/dL High Risk Eosinophils/100 WBC (Bld) 2.4 % 0-5 [facility] Glucose [Mass/Vol] 119 mg/dL 74-106 [facility] Comment on above: Fasting Glucose resu lt from 100 to 125 mg/dL suggests IMPAIRED HOMEOSTASIS per A.D.A. criteria. Neutrophils (Bld) [#/Vol] 4.5 10*3/uL 2.0-7.7 [facility] Neutrophils/100 WBC (Bld) 61.6 % 47-70 [facility] Potassium [Moles/Vol] 4.2 mmol/L 3.5-5.1 [facility] Protein [Mass/Vol] 6.8 g/dL 6.4-8.2 [facility] Sodium [Moles/Vol] 141 mmol/L 136-145 [facility] Triglyceride [Mass/Vol] 179 mg/dL <199 [facility] Comment on above: The drugs N-Acetylcy steine and Metamizole may falsely depress this assay.Serum Triglycerides Reference Interval Normal <150 mg/dL Borderline high 150 - 199 mg/dL High 200 - 499 mg/dL Very High > or = 500 mg/dL WBC (Bld) [#/Vol] 7.2 10*3/uL 4.4-11.0 [facility] Blood erythrocytes count (nu mber/volume)Ordered By: Dr. Gibson on 06-13-2022 RBC (Bld) [#/Vol] 4.75 10*6/uL 4.2-5.4 [facility] Blood hemoglobin measurement (mass/volume)Ordered By: Dr. Gibson on 06-13-2022 Hemoglobin (Bld) [Mass/Vol] 14.4 g/dL 12.0-15.0 [facility] Blood lymphocytes/100 leukoc ytesOrdered By: Dr. Gibson on 06-13-2022 Lymphocytes/100 WBC (Bld) 29.2 % 19-41 [facility] Blood monocytes/100 leukocyt esOrdered By: Dr. Gibson on 06-13-2022 Monocytes/100 WBC (Bld) 5.4 % 0-10 [facility] Blood platelet mean volumeOr dered By: Dr. Gibson on 06-13-2022 Platelet mean volume (Bld) [Entitic vol] 9.8 fL 6.2-12.0 [facility] Determination of erythrocyte mean corpuscular volume (MCV)Ordered By: Dr. Gibson on 06-13-2022 MCV (RBC) [Entitic vol] 92.6 fL 81-99 [facility] Hematocrit Auto (Bld) [Volum e fraction]Ordered By: Dr. Gibson on 06-13-2022 Hematocrit (Bld) [Volume fraction] 44.0 % 37-47 [facility] - Chemistry and C hemistry - challengeOrdered By: Dr. Gibson on 06-13-2022 ALP [Catalytic activity/Vol] 61 U/L 45-117 [facility] ALT [Catalytic activity/Vol] 29 U/L 13-56 [facility] CO2 [Moles/Vol] 25.0 mmol/L 21.0-32.0 [facility] Globulin (S) [Mass/Vol] 3.5 g/dL 2.2-4.2 [facility] Urea nitrogen/Creatinine [Mass ratio] 15.3 mg/mg 10-20 [facility] Laboratory - Hematology and Cell countsOrdered By: Dr. Gibson on 06-13-2022 Erythrocyte distribution width (RBC) [Entitic vol] 42.5 fL 35.1-43.9 [facility] Erythrocyte distribution width (RBC) [Ratio] 12.4 % 11.6-14.6 [facility] Immature granulocytes/100 WBC (Bld) 0.400 % 0.0-0.9 [facility] Comment on above: IG% - Immature Granu locytes (promyelocytes, myelocytes and metamyelocytes) > 1% indicates that a LEFT SHIFT is Present. MCH (RBC) [Entitic mass] 30.3 pg 27.0-32.0 [facility] Nucleated RBC/100 WBC (Bld) [Ratio] 0 % 0-5 [facility] MCHC Auto (RBC) [Mass/Vol]Or dered By: Dr. Gibson on 06-13-2022 MCHC (RBC) [Mass/Vol] 32.7 g/dL 32-36 [facility] No Panel InformationOrdered By: Dr. Gibson on 06-13-2022 Estimated GFR (MDRD) Amer 64 mL/min >60 [facility] Comment on above: GFR Calc Estimated GFR (MDRD) Non-Af Amer 53 mL/min >60 [facility] Comment on above: Non- GFR Calc Platelets bldOrdered By: Dr. Gibson on 06-13-2022 Platelets (Bld) [#/Vol] 254 10*3/uL 150-450 [facility] Serum or plasma albumin julee urement (mass/volume)Ordered By: Dr. Gibson on 06-13-2022 Albumin [Mass/Vol] 3.3 g/dL 3.2-5.0 [facility] Serum or plasma albumin/glob ulin mass ratioOrdered By: Dr. Gibson on 06-13-2022 Albumin/Globulin [Mass ratio] 0.9 {ratio} 0.9-2.4 [facility] Serum or plasma calcium julee urement (mass/volume)Ordered By: Dr. Gibson on 06-13-2022 Calcium [Mass/Vol] 8.5 mg/dL 8.5-10.1 [facility] Serum or plasma cholesterol in HDL measurement (mass/volume)Ordered By: Dr. Gibson on 06-13-2022 Cholesterol in HDL [Mass/Vol] 59 mg/dL >40 [facility] Comment on above: The drugs N-Acetylcy steine and Metamizole may falsely depress this assay. Reference Range HDL <40 mg/dL Low HDL Cholesterol HDL >or= 60 mg/dL High HDL Cholesterol Serum or plasma cholesterol in VLDL measurement (mass/volume)Ordered By: Dr. Gibson on 06-13-2022 Cholesterol in VLDL [Mass/Vol] 36 mg/dL 5-40 [facility] Serum or plasma creatinine m easurement (mass/volume)Ordered By: Dr. Gibson on 06-13-2022 Creatinine [Mass/Vol] 1.11 mg/dL 0.55-1.02 [facility] Comment on above: The validity of the calculated GFR & GFRAA in patients over 70 years has not been determined. Clinical correlation is essential. Serum or plasma low density lipoprotein (LDL) cholesterol measurement (mass/volume)Ordered By: Dr. Gibson on 06-13-2022 Cholesterol in LDL [Mass/Vol] 68 mg/dL 0-130 [facility] Serum or plasma urea nitroge n measurement (mass/volume)Ordered By: Dr. Gibson on 06-13-2022 Urea nitrogen [Mass/Vol] 17 mg/dL 7-18 [facility] Thin prep Papanicolaou smear with manual screeningOrdered By: Dr. Gibson on 06-13-2022 Thin prep Papanicolaou smear with manual screening 23 U/L 15-37 [facility] Thin prep Papanicolaou smear with manual screening 6 5-15 [facility] Whole blood hemoglobin A1c/t otal hemoglobin ratio (mass fraction)Ordered By: Dr. Gibson on 06-13-2022 HbA1c (Bld) [Mass fraction] 5.5 % 3.8-5.6 [facility] Comment on above: Normal < 5.7 % Predi abetic 5.7 - 6.4 % Diabetic >or= 6.5 % Please note range changes. ANES POSTPROC EVALon 022 ANES POSTPROC EVAL HNO ID: [id number] Author: Iftikhar Martinez MD Service: ? Author Type: Anesthesiologist Type: Anesthesia Postprocedure Evaluation Filed: 02/27/2022 12:32 PM Note Text: POST ANESTHESIA EVALUATION NOTE : 1960 Procedure Summary Date: 02/27/22 Room / Location: Gastroenterology Anesthesia Start: 853 Anesthesia Stop: 933 Procedure: EGD - THERAPEUTIC, EUS, OR TUBE INTERVENTIONS Diagnosis: Duodenal nodule Dilated bile duct (Abnormal abdominal/pelvic CT scan) Scheduled Providers: Dwayne Leung MD; Iftikhar Martinez MD; Merari Toro APRN.LEHR ATTENDANT Responsible Provider: Iftikhar Martinez MD Anesthesia Type: general ASA Status: 2 Anesthesia Type: general Airway Type: supplemental O2 Last Vitals Vitals Value Taken Time BP 98/67 02/27/22 0950 Temp 36.3 ?C (97.3 ?F) 02/27/22 0933 HR SpO2 86 02/27/22 0955 Resp 16 02/27/22 0950 SpO2 95 % 02/27/22 0955 Vitals shown include unvalidated device data. Post Anesthesia Patient Status Patient Evaluation: PACU. PACU/ICU Patient Condition: stable. Anticipated Disposition: phase 2 then home. Neurological Status: aware and responsive. Pulmonary Status: breathing comfortably on room air Airway Control: returned to baseline unsupported. Cardiovascular Status: stable. Pain Management: clinically adequate Postoperative Hydration: acceptable. Intraoperative Events: no significant anesthesia events Post Operative Nausea/Vomiting Status: no significant post operative nausea or vomiting Recommendation: continue current plan of care. Anesthesia Observations No Documentation SIGNATURE: Iftikhar Martinez MD PATIENT NAME: Екатерина Ba DATE: February 27, 2022 TIME: 12:32 PM CSN: [id number] Normal [facility] ANES PRE-OPon 02-27-2022 ANES PRE-OP HNO ID: [id number] Author: Iftikhar Martinez MD Service: ? Author Type: Anesthesiologist Type: Anesthesia Preprocedure Evaluation Filed: 02/27/2022 9:07 AM Note Text: ANESTHESIOLOGY DAY OF SURGERY NOTE : 1960 Procedure Information Anesthesia Start Date/Time: 02/27/22 0854 Scheduled providers: Dwayne Leung MD; Iftikhar Martinez MD; Merari Toro APRN.LEHR ATTENDANT Procedure: EGD - THERAPEUTIC, EUS, OR TUBE INTERVENTIONS Location: Gastroenterology Estimated body mass index is 30.23 kg/m? as calculated from the following: Height as of this encounter: 154.9 cm (5' 1). Weight as of this encounter: 72.6 kg (160 lb). Most recent hematocrit and potassium results: Hematocrit 44.6 03/26/2015 Potassium 4.2 03/26/2015 Relevant Problems GI (+) GERD (gastroesophageal reflux disease) -RENAL (+) Fatty liver (+) Malignant neoplasm of kidney, except pelvis (+) Renal cell carcinoma (HCC) (+) Renal cyst Other (+) Impingement syndrome of right shoulder I - PHYSICAL EVALUATION AIRWAY Patient intubated: No. Tracheostomy tube not present Mallampati: III. TM distance: >3 FB. Neck ROM: full ROM without neurological symptoms. Mouth opening: adequate. Short neck: no. Thick neck: no [place] present: no DENTAL Dental findings: teeth intact. II - ANESTHESIA PLAN ASA Score: 2 Anesthetic Plan: MAC NPO Status: adequate Beta Howard Monitoring Plan Monitoring plan: standard ASA. Post Procedure Analgesic Plan Postoperative analgesic plan: parenteral or oral opioids. Informed Consent Anesthetic risks, benefits, alternatives, personnel and consent discussed: yes. Patient / Responsible Alliance Party agrees to proceed: yes Patient / Surrogate agrees to blood products: blood products not planned Significant changes in the patient condition since the History and Physical, not otherwise documented in primary service progress note: no. Potential Anesthesia issues that may suggest increased risk of complications or contraindication to planned procedure: none. Vitals Value Taken Time BP 142/76 02/27/22827 Pulse 77 02/27/22827 Resp 18 02/27/22827 Temp 36.5 ?C (97.7 ?F) 02/27/22827 SpO2 96 % 02/27/22827 Outpatient Medications as of 02/27/2022 Medication Sig - ACETAMINOPHEN 500 MG TAB as necessary Facility-Administered Medications as of 02/27/2022 Medication Dose Route Frequency - NaCl 0.9% iv infusion 30 mL/hr INTRAVENOUS CONTINUOUS - propofol infusion (DIPRIVAN) INTRAVENOUS X (ONE-STEP ONLY) CONTINUOUS PRN - propofol injection (DIPRIVAN) INTRAVENOUS PRN - lidocaine (PF) 10 mg/mL (1 %) injection (XYLOCAINE) INTRAVENOUS PRN - lactated ringers iv infusion INTRAVENOUS X (ONE-STEP ONLY) CONTINUOUS PRN I have interviewed and examined the patient. I have reviewed the medical record and/or the pre-anesthesia evaluation, pertinent labs, and test results. This contains updated information obtained within 48 hours of Surgery/Procedure. SIGNATURE: Iftikhar Martinez MD PATIENT NAME: Екатерина Ba DATE: February 27, 2022 TIME: 9:07 AM CSN: [id number] Normal [facility] EGD - THERAPEUTIC, EUS, OR T UBE INTERVENTIONSon 02-27-2022 [facility] HISTORY PHYSICALon HISTORY PHYSICAL HNO ID: [id number] Author: Dwayne Leung MD Service: Gastroenterology Author Type: Physician Type: HANDP Filed: 02/27/2022 8:47 AM Note Text: HISTORY AND PHYSICAL Екатерина Ba, 62 year old female Current history and physical on file: Yes Is a new History and Physical required for today's visit? Yes Indication for procedure: Other duodenal nodule PROCEDURE(S) SCHEDULED FOR: EUS/FNA (Endoscopic Ultrasound with or without Fine Needle Aspiration), based on clinical findings. BASELINE BEHAVIOR: Calm BASELINE ORIENTATION: A AND O x3 All medications and allergies reviewed: Yes Skin Assessment: Warm dry mucus membranes pink Airway/Respiratory Assessment: Airway: visualization of the uvula- Yes Mouth: opening greater than 2 fingerbreadths- Yes Neck: full range of motion- Yes Breath sounds clear/equal- Yes Cardiac Assessment: Regular rate and rhythm without murmur Abdominal Assessment: Abdomen soft, non-tender, no masses or organomegaly. Sedation Plan: Moderate and MAC Additional Comments: None Dwayne Leung II, MD [facility] NURSING PROGon 02-27-2022 NURSING PROG HNO ID: [id number] Author: Elizabeth Vang RN Service: ? Author Type: Registered Nurse Type: Nursing Progress Note Filed: 02/27/2022 9:46 AM Note Text: AMBULATORY PATIENT EDUCATION NOTE TOPIC: GI PROCEDURES: Endoscopic Ultrasound (EUS) with or without Fine Needle Aspiration (FNA) Esophagogastroduodenoscopy(E GD) with or without biopies based on clinical findings, removal of polyps or lesions READINESS TO LEARN INSTRUCTION PROVIDED TO: Patient, readness to learn accessed prior to procedure COGNITIVE ABILITY: Alert and oriented PTED MOTIVATION TO LEARN: Eager FAMILY SUPPORT: High - Very involved in pt care IPATIENT LEARNS BEST BY: Individual Instruction FACTORS AFFECTING LEARNING: None PHYSICAL LIMITATIONS AFFECTING LEARNING: None LEARNING RESPONSE METHOD OF INSTRUCTION: Individual instruction PATIENT / FAMILY RESPONSE: Verbalizes understanding of: WORSENING CONDITION-Signs and symptoms of a worsening condition that warrant a call to the physician FOLLOW-UP PLAN: Complete - No need for follow-up SUPPLEMENTAL MATERIAL: Procedure Discharge Instructions REFERRAL (RECOMMENDATION): None Electronically Signed By: Elizabeth Vang RN [facility] NURSING PROG HNO ID: [id number] Author: Jessi Calvo LPN Service: Nursing Author Type: LICENSED NURSE Type: Nursing Progress Note Filed: 02/27/2022 8:20 AM Note Text: PRE OP LEARNING ASSESSMENT PROCEDURE/SURGERY: GI PROCEDURES: EGD READINESS TO LEARN COGNITIVE ABILITY: Alert and oriented MOTIVATION TO LEARN: Eager Interested FAMILY SUPPORT: High - Very involved in pt care PATIENT LEARNS BEST BY: Individual Instruction Written Instruction - Hand-outs Verbal Instruction FACTORS AFFECTING LEARNING: None PHYSICAL LIMITATIONS AFFECTING LEARNING: None Electronically Signed By: Jessi Calvo LPN In Department: GASTROENTEROLOGY Normal [facility] Arabella 02-18-2022 KIKI Telephone (GASTPR) ЕКАТЕРИНА BA ([id number]) 1960 F DEF Date Time Provider Department 02/18/22 SAMRA SALCEDO During your visit today, we recorded the following information about you: Samra Salcedo LPN 02/18/2022 3:34 PM Signed Attempted to reach the patient at the contact number that they provided [phone] (home) . Unable to speak with patient so without identifying the patient the following information was left on their voice mail: Date of procedure, location and report time Prep instructions A message was left informing the patient/patient phone representative they must have a responsible adult accompany them to their procedure; and remain in the endoscopy area until they are discharged. Failure to have a responsible adult accompany the patient to their procedure appointment prevents the use of sedation or anesthesia for their procedure; and can result in cancellation of the procedure NPO instructions were reviewed. Clear liquids the day before the procedure, stop all liquids 4 hours before the procedure Instructions to contact their primary care provider regarding their medications and which medications to stop in preparation for their procedure Instructions to completely read and follow the written instructions that they recieved regarding their procedure. Number to call with questions or concerns [phone] Number to call to cancel their procedure [phone] Samra Salcedo LPN Allergies As of Date: 02/18/2022 Noted Allergy Reaction DOXYCYCLINE 03/26/2015 6 - Diarrhea SEASONAL ALLERGIES 01/24/2014 14 - Other: See Comments Date Reviewed: 07/15/2021 Reviewed by: Zion Patel MD - Fully Assessed Reason for Visit: Appointment [186] Prescriptions as of 02/18/2022 - ACETAMINOPHEN 500 MG TAB as necessary Problem List As Of Date 02/18/2022 Noted Resolved TOBACCO USE DISORDER [F17.200] 06/12/2008 GASTROINTEST HEMORR NOS [K92.2] 08/28/2008 BENIGN NEOPLASM LG BOWEL [D12.6] 09/05/2008 FAMILY HX GI MALIGNANCY [Z80.0] 09/05/2008 Malignant neoplasm of kidney, except pelvis [C6*09/12/2008 Allergic Rhinitis [J30.9] 12/26/2008 Fatty Liver [K76.0] 07/09/2009 Cervicalgia [M54.2] 02/24/2011 Adenomatous colon polyp [D12.6] 03/17/2011 Renal cyst [N28.1] 04/07/2011 Hematuria [R31.9] 04/07/2011 Depression [F32.A] 04/17/2011 Cervical radiculopathy [M54.12] 04/17/2011 Renal cell carcinoma [C64.9] 04/24/2011 Solitary kidney [[id number]] 04/24/2011 Deaf [H91.90] 07/31/2011 Digital nerve laceration, finger [S64.40XA] 12/02/2012 Laceration of thumb with tendon involvement [S6*12/02/2012 Impingement syndrome of right shoulder [M75.41] 01/13/2013 Bilateral hearing loss [H91.93] 06/25/2015 GERD (gastroesophageal reflux disease) [K21.9] 06/25/2015 Encounter Status:Closed by SAMRA SALCEDO on 02/18/22 Normal [facility] Basophil percentageon 2021 Chloride [Moles/Vol] 104 mmol/L 98-107 [facility] Work Phone: Glucose [Mass/Vol] 111 mg/dL 74-106 [facility] Work Phone: Comment on above: Fasting Glucose resu lt from 100 to 125 mg/dL suggests IMPAIRED HOMEOSTASIS per A.D.A. criteria. Potassium [Moles/Vol] 4.1 mmol/L 3.5-5.1 [facility] Work Phone: Sodium [Moles/Vol] 137 mmol/L 136-145 [facility] Work [facility]: Laboratory - Chemistry and C hemistry - challengeon 01-09-2022 CO2 [Moles/Vol] 26.0 mmol/L 21.0-32.0 [facility] Work Phone: Urea nitrogen/Creatinine [Mass ratio] 18.8 mg/mg 10-20 [facility] Work Phone: No Panel Informationon 01-09 Estimated GFR (MDRD) Amer 71 mL/min >60 [facility] Work Phone: Comment on above: GFR Calc Estimated GFR (MDRD) Non-Af Amer 59 mL/min >60 [facility] Work Phone: Comment on above: Non- GFR Calc Serum or plasma calcium julee urement (mass/volume)on 01-09-2022 Calcium [Mass/Vol] 9.0 mg/dL 8.5-10.1 [facility] Work Phone: Serum or plasma creatinine m easurement (mass/volume)on 01-09-2022 Creatinine [Mass/Vol] 1.01 mg/dL 0.55-1.02 [facility] Work Phone: Comment on above: The validity of the calculated GFR & GFRAA in patients over 70 years has not been determined. Clinical correlation is essential. Serum or plasma urea nitroge n measurement (mass/volume)on 01-09-2022 Urea nitrogen [Mass/Vol] 19 mg/dL 7-18 [facility] Work Phone: Thin prep Papanicolaou smear with manual screeningon 01-09-2022 Thin prep Papanicolaou smear with manual screening 7 5-15 [facility] Work Phone: Absolute lymphocyte counton 01-02-2022 Lymphocytes Auto (Unsp spec) [#/Vol] 2.09 10*3/uL 0.83-4.51 [facility] Work Phone: Basophil percentageon 2021 Basophils/100 WBC (Bld) 0.8 % 0-1 [facility] Work Phone: Bilirubin [Mass/Vol] 0.30 mg/dL 0.20-1.00 [facility] Work Phone: Comment on above: For patients on eltr ombopag therapy, use of Dimension [place]ld TBIL is not recommended. Chloride [Moles/Vol] 109 mmol/L 98-107 [facility] Work Phone: Cholesterol [Mass/Vol] 165 mg/dL <200 [facility] Work Phone: [phone] Comment on above: <200 mg/dL Desirable 200-240 mg/dL Borderline >240 mg/dL High Risk Eosinophils/100 WBC (Bld) 1.6 % 0-5 [facility] Work Phone: [phone] Glucose [Mass/Vol] 110 mg/dL 74-106 [facility] Work Phone: Comment on above: Fasting Glucose resu lt from 100 to 125 mg/dL suggests IMPAIRED HOMEOSTASIS per A.D.A. criteria. Neutrophils (Bld) [#/Vol] 4.6 10*3/uL 2.0-7.7 [facility] Work Phone: [phone] Neutrophils/100 WBC (Bld) 62.7 % 47-70 [facility] Work Phone: [phone] Potassium [Moles/Vol] 4.5 mmol/L 3.5-5.1 [facility] Work Phone: [phone] Protein [Mass/Vol] 7.4 g/dL 6.4-8.2 [facility] Work Phone: [phone] Sodium [Moles/Vol] 141 mmol/L 136-145 [facility] Work Phone: [phone] Triglyceride [Mass/Vol] 90 mg/dL <199 [facility] Work Phone: Comment on above: The drugs N-Acetylcy steine and Metamizole may falsely depress this assay.Serum Triglycerides Reference Interval Normal <150 mg/dL Borderline high 150 - 199 mg/dL High 200 - 499 mg/dL Very High > or = 500 mg/dL WBC (Bld) [#/Vol] 7.3 10*3/uL 4.4-11.0 [facility] Work Phone: Blood erythrocytes count (nu mber/volume)on 01-02-2022 RBC (Bld) [#/Vol] 4.78 10*6/uL 4.2-5.4 [facility] Work Phone: Blood hemoglobin measurement (mass/volume)on 01-02-2022 Hemoglobin (Bld) [Mass/Vol] 14.7 g/dL 12.0-15.0 [facility] Work Phone: Blood lymphocytes/100 leukoc yteson 01-02-2022 Lymphocytes/100 WBC (Bld) 28.5 % 19-41 [facility] Work Phone: Blood monocytes/100 leukocyt eson 01-02-2022 Monocytes/100 WBC (Bld) 5.9 % 0-10 [facility] Work Phone: Blood platelet mean volumeon 01-02-2022 Platelet mean volume (Bld) [Entitic vol] 9.4 fL 6.2-12.0 [facility] Work Phone: Determination of erythrocyte mean corpuscular volume (MCV)on 01-02-2022 MCV (RBC) [Entitic vol] 92.9 fL 81-99 [facility] Work Phone: Hematocrit Auto (Bld) [Volum e fraction]on 01-02-2022 Hematocrit (Bld) [Volume fraction] 44.4 % 37-47 [facility] Work Phone: Laboratory - Chemistry and C hemistry - challengeon 01-02-2022 ALP [Catalytic activity/Vol] 60 U/L 45-117 [facility] Work Phone: ALT [Catalytic activity/Vol] 27 U/L 13-56 [facility] Work Phone: CO2 [Moles/Vol] 26.0 mmol/L 21.0-32.0 [facility] Work Phone: Globulin (S) [Mass/Vol] 4.1 g/dL 2.2-4.2 [facility] Work Phone: Urea nitrogen/Creatinine [Mass ratio] 17.8 mg/mg 10-20 [facility] Work Phone: Laboratory - Hematology and Cell countson 01-02-2022 Erythrocyte distribution width (RBC) [Entitic vol] 41.5 fL 35.1-43.9 [facility] Work Phone: Erythrocyte distribution width (RBC) [Ratio] 12.1 % 11.6-14.6 [facility] Work Phone: Immature granulocytes/100 WBC (Bld) 0.500 % 0.0-0.9 [facility] Work Phone: Comment on above: IG% - Immature Granu locytes (promyelocytes, myelocytes and metamyelocytes) > 1% indicates that a LEFT SHIFT is Present. MCH (RBC) [Entitic mass] 30.8 pg 27.0-32.0 [facility] Work Phone: Nucleated RBC/100 WBC (Bld) [Ratio] 0 % 0-5 [facility] Work Phone: MCHC Auto (RBC) [Mass/Vol]on 01-02-2022 MCHC (RBC) [Mass/Vol] 33.1 g/dL 32-36 [facility] Work Phone: No Panel Informationon 01-02 Estimated GFR (MDRD) Amer 71 mL/min >60 [facility] Work Phone: Comment on above: GFR Calc Estimated GFR (MDRD) Non-Af Amer 59 mL/min >60 [facility] Work Phone: Comment on above: Non- GFR Calc Platelets bldon 01-02-2022 Platelets (Bld) [#/Vol] 250 10*3/uL 150-450 [facility] Work Phone: Serum or plasma albumin julee urement (mass/volume)on 01-02-2022 Albumin [Mass/Vol] 3.3 g/dL 3.2-5.0 [facility] Work Phone: Serum or plasma albumin/glob ulin mass ratioon 01-02-2022 Albumin/Globulin [Mass ratio] 0.8 {ratio} 0.9-2.4 [facility] Work Phone: Serum or plasma calcium julee urement (mass/volume)on 01-02-2022 Calcium [Mass/Vol] 9.2 mg/dL 8.5-10.1 [facility] Work Phone: Serum or plasma cholesterol in HDL measurement (mass/volume)on 01-02-2022 Cholesterol in HDL [Mass/Vol] 75 mg/dL >40 [facility] Work Phone: Comment on above: The drugs N-Acetylcy steine and Metamizole may falsely depress this assay. Reference Range HDL <40 mg/dL Low HDL Cholesterol HDL >or= 60 mg/dL High HDL Cholesterol Serum or plasma cholesterol in VLDL measurement (mass/volume)on 01-02-2022 Cholesterol in VLDL [Mass/Vol] 18 mg/dL 5-40 [facility] Work Phone: Serum or plasma creatinine m easurement (mass/volume)on 01-02-2022 Creatinine [Mass/Vol] 1.01 mg/dL 0.55-1.02 [facility] Work Phone: Comment on above: The validity of the calculated GFR & GFRAA in patients over 70 years has not been determined. Clinical correlation is essential. Serum or plasma low density lipoprotein (LDL) cholesterol measurement (mass/volume)on 01-02-2022 Cholesterol in LDL [Mass/Vol] 72 mg/dL 0-130 [facility] Work Phone: Serum or plasma urea nitroge n measurement (mass/volume)on 01-02-2022 Urea nitrogen [Mass/Vol] 18 mg/dL 7-18 [facility] Work Phone: Thin prep Papanicolaou smear with manual screeningon 01-02-2022 Thin prep Papanicolaou smear with manual screening 21 U/L 15-37 [facility] Work Phone: Thin prep Papanicolaou smear with manual screening 6 5-15 [facility] Work Phone: Whole blood hemoglobin A1c/t otal hemoglobin ratio (mass fraction)on 01-02-2022 HbA1c (Bld) [Mass fraction] 5.5 % 3.8-5.6 [facility] Work Phone: Comment on above: Normal < 5.7 % Predi abetic 5.7 - 6.4 % Diabetic >or= 6.5 % Please note range changes. Basophil percentageon 2021 Bilirubin [Mass/Vol] 0.40 mg/dL 0.20-1.00 [facility] Work Phone: Comment on above: For patients on eltr ombopag therapy, use of Dimension [place] TBIL is not recommended. Chloride [Moles/Vol] 108 mmol/L 98-107 [facility] Work Phone: Glucose [Mass/Vol] 104 mg/dL 74-106 [facility] Work Phone: Comment on above: Fasting Glucose resu lt from 100 to 125 mg/dL suggests IMPAIRED HOMEOSTASIS per A.D.A. criteria. Potassium [Moles/Vol] 4.0 mmol/L 3.5-5.1 [facility] Work Phone: Protein [Mass/Vol] 7.3 g/dL 6.4-8.2 [facility] Work Phone: Sodium [Moles/Vol] 144 mmol/L 136-145 [facility] Work Phone: Direct bilirubinon 2 Bilirubin.direct [Mass/Vol] 0.10 mg/dL 0.00-0.30 [facility] Work Phone: Laboratory - Chemistry and C hemistry - challengeon 12-13-2021 ALP [Catalytic activity/Vol] 63 U/L 45-117 [facility] Work Phone: ALT [Catalytic activity/Vol] 27 U/L 13-56 [facility] Work Phone: CO2 [Moles/Vol] 28.0 mmol/L 21.0-32.0 [facility] Work Phone: Globulin (S) [Mass/Vol] 3.8 g/dL 2.2-4.2 [facility] Work Phone: Urea nitrogen/Creatinine [Mass ratio] 16.4 mg/mg 10-20 [facility] Work Phone: No Panel Informationon 12-13 Estimated GFR (MDRD) Amer 61 mL/min >60 [facility] Work Phone: Comment on above: GFR Calc Estimated GFR (MDRD) Non-Af Amer 50 mL/min >60 [facility] Work Phone: Comment on above: Non- GFR Calc Serum or plasma albumin julee urement (mass/volume)on 12-13-2021 Albumin [Mass/Vol] 3.5 g/dL 3.2-5.0 [facility] Work Phone: Serum or plasma albumin/glob ulin mass ratioon 12-13-2021 Albumin/Globulin [Mass ratio] 0.9 {ratio} 0.9-2.4 [facility] Work Phone: Serum or plasma calcium julee urement (mass/volume)on 12-13-2021 Calcium [Mass/Vol] 8.9 mg/dL 8.5-10.1 [facility] Work Phone: Serum or plasma creatinine m easurement (mass/volume)on 12-13-2021 Creatinine [Mass/Vol] 1.16 mg/dL 0.55-1.02 [facility] Work Phone: Comment on above: The validity of the calculated GFR & GFRAA in patients over 70 years has not been determined. Clinical correlation is essential. Serum or plasma urea nitroge n measurement (mass/volume)on 12-13-2021 Urea nitrogen [Mass/Vol] 19 mg/dL 7-18 [facility] Work Phone: Thin prep Papanicolaou smear with manual screeningon 09-16-2022 Thin prep Papanicolaou smear with manual screening 16 U/L 15-37 [facility] Work Phone: Thin prep Papanicolaou smear with manual screening 8 5-15 [facility] Work Phone: CNPNon [facility]06[facility]2021 [facility] JIAЕКАТЕРИНА ([id number]) 1960 F DEF Date Time Provider Department 08/06/21 ZION PATEL1 During your visit today, we recorded the following information about you: Ángela Richter LPN 08/06/2021 2:42 PM Signed LEFT MESSAGE FOR PATIENT THAT WE HAVE BEEN IN CLOSE CONTACT WITH DR. MORALES'S OFFICE, HE HAS AGREED TO DO THE EUS/FNA, BUT HE IS NEEDING TO LOOK FURTHER INTO HER RECORDS BEFORE SCHEDULING PROCEDURE. LEFT PHONE TO DR. MORALES'S OFFICE FOR PATIENT TO CALL FOR UPDATES. Ángela Richter LPN Allergies As of Date: 08/06/2021 Noted Allergy Reaction DOXYCYCLINE 03/26/2015 6 - Diarrhea SEASONAL ALLERGIES 01/24/2014 14 - Other: See Comments Date Reviewed: 07/15/2021 Reviewed by: Zion Patel MD - Fully Assessed Reason for Visit: Appointment [186] Cmt: CONSULT TO GI Prescriptions as of 08/06/2021 - ACETAMINOPHEN 500 MG TAB as necessary Problem List As Of Date 08/06/2021 Noted Resolved TOBACCO USE DISORDER [F17.200] 06/12/2008 GASTROINTEST HEMORR NOS [K92.2] 08/28/2008 BENIGN NEOPLASM LG BOWEL [D12.6] 09/05/2008 FAMILY HX GI MALIGNANCY [Z80.0] 09/05/2008 Malignant neoplasm of kidney, except pelvis [C6*09/12/2008 Allergic Rhinitis [J30.9] 12/26/2008 Fatty Liver [K76.0] 07/09/2009 Cervicalgia [M54.2] 02/24/2011 Adenomatous colon polyp [D12.6] 03/17/2011 Renal cyst [N28.1] 04/07/2011 Hematuria [R31.9] 04/07/2011 Depression [F32.A] 04/17/2011 Cervical radiculopathy [M54.12] 04/17/2011 Renal cell carcinoma [C64.9] 04/24/2011 Solitary kidney [[id number]] 04/24/2011 Deaf [H91.90] 07/31/2011 Digital nerve laceration, finger [S64.40XA] 12/02/2012 Laceration of thumb with tendon involvement [S6*12/02/2012 Impingement syndrome of right shoulder [M75.41] 01/13/2013 Bilateral hearing loss [H91.93] 06/25/2015 GERD (gastroesophageal reflux disease) [K21.9] 06/25/2015 Encounter Status:Closed by ÁNGELA RICHTER on 08/06/21 [facility] Iron measurement (mass/mass) on 08-01-2021 Iron (Unsp spec) [Mass/Mass] 74 ug/dL 50-170 [facility] Work Phone: Laboratory - Chemistry and C hemistry - challengeon 08-01-2021 Transferrin [Mass/Vol] 241 mg/dL [facility] Work Phone: Comment on above: Performed at: [place] [id number] Director: Phil Egan PhD, Phone: [phone] No Panel Informationon 08-01 Total Iron Binding Capacity 304 ug/dL 250-450 [facility] Work Phone: Serum or plasma ferritin juan antonio surement (mass/volume)on 08-01-2021 Ferritin [Mass/Vol] 125 ng/mL 8-252 [facility] Work Phone: Absolute lymphocyte counton 07-26-2021 Lymphocytes Auto (Unsp spec) [#/Vol] 2.36 10*3/uL 0.83-4.51 [facility] Work Phone: Basophil percentageon 2021 Basophils/100 WBC (Bld) 0.8 % 0-1 [facility] Work Phone: Bilirubin [Mass/Vol] 0.20 mg/dL 0.20-1.00 [facility] Work Phone: Comment on above: For patients on eltr ombopag therapy, use of Dimension [place] TBIL is not recommended. Chloride [Moles/Vol] 106 mmol/L 98-107 [facility] Work Phone: [phone] Cholesterol [Mass/Vol] 175 mg/dL <200 [facility] Work Phone: [phone] Comment on above: <200 mg/dL Desirable 200-240 mg/dL Borderline >240 mg/dL High Risk Eosinophils/100 WBC (Bld) 2.1 % 0-5 [facility] Work Phone: Glucose [Mass/Vol] 112 mg/dL 74-106 [facility] Work Phone: Comment on above: Fasting Glucose resu lt from 100 to 125 mg/dL suggests IMPAIRED HOMEOSTASIS per A.D.A. criteria. Neutrophils (Bld) [#/Vol] 6.2 10*3/uL 2.0-7.7 [facility] Work Phone: Neutrophils/100 WBC (Bld) 66.5 % 47-70 [facility] Work Phone: Potassium [Moles/Vol] 4.4 mmol/L 3.5-5.1 [facility] Work Phone: Comment on above: Slight Hemolysis, Re sult may be falsely increased. Protein [Mass/Vol] 6.9 g/dL 6.4-8.2 [facility] Work Phone: Sodium [Moles/Vol] 135 mmol/L 136-145 [facility] Work Phone: Triglyceride [Mass/Vol] 105 mg/dL [facility] Work Phone: Comment on above: The drugs N-Acetylcy steine and Metamizole may falsely depress this assay.Serum Triglycerides Reference Interval Normal <150 mg/dL Borderline high 150 - 199 mg/dL High 200 - 499 mg/dL Very High > or = 500 mg/dL WBC (Bld) [#/Vol] 9.3 10*3/uL 4.4-11.0 [facility] Work Phone: Blood erythrocytes count (nu mber/volume)on 07-26-2021 RBC (Bld) [#/Vol] 5.13 10*6/uL 4.2-5.4 [facility] Work Phone: Blood hemoglobin measurement (mass/volume)on 07-26-2021 Hemoglobin (Bld) [Mass/Vol] 15.6 g/dL 12.0-15.0 [facility] Work Phone: Blood lymphocytes/100 leukoc yteson 07-26-2021 Lymphocytes/100 WBC (Bld) 25.3 % 19-41 [facility] Work Phone: Blood monocytes/100 leukocyt eson 07-26-2021 Monocytes/100 WBC (Bld) 4.9 % 0-10 [facility] Work Phone: Blood platelet mean volumeon 07-26-2021 Platelet mean volume (Bld) [Entitic vol] 10.0 fL 6.2-12.0 [facility] Work Phone: [phone] Determination of erythrocyte mean corpuscular volume (MCV)on 07-26-2021 MCV (RBC) [Entitic vol] 91.4 fL 81-99 [facility] Work Phone: [phone] Hematocrit Auto (Bld) [Volum e fraction]on 07-26-2021 Hematocrit (Bld) [Volume fraction] 46.9 % 37-47 [facility] Work Phone: [phone] Laboratory - Chemistry and C hemistry - challengeon 07-26-2021 ALP [Catalytic activity/Vol] 66 U/L 45-117 [facility] Work Phone: ALT [Catalytic activity/Vol] 29 U/L 13-56 [facility] Work Phone: CO2 [Moles/Vol] 25.0 mmol/L 21.0-32.0 [facility] Work Phone: Globulin (S) [Mass/Vol] 3.7 g/dL 2.2-4.2 [facility] Work Phone: Urea nitrogen/Creatinine [Mass ratio] 22.0 mg/mg 10-20 [facility] Work Phone: Laboratory - Hematology and Cell countson 07-26-2021 Erythrocyte distribution width (RBC) [Entitic vol] 42.7 fL 35.1-43.9 [facility] Work Phone: Erythrocyte distribution width (RBC) [Ratio] 12.6 % 11.6-14.6 [facility] Work Phone: Immature granulocytes/100 WBC (Bld) 0.400 % 0.0-0.9 [facility] Work Phone: Comment on above: IG% - Immature Granu locytes (promyelocytes, myelocytes and metamyelocytes) > 1% indicates that a LEFT SHIFT is Present. MCH (RBC) [Entitic mass] 30.4 pg 27.0-32.0 [facility] Work Phone: Nucleated RBC/100 WBC (Bld) [Ratio] 0 % 0-5 [facility] Work Phone: MCHC Auto (RBC) [Mass/Vol]on 07-26-2021 MCHC (RBC) [Mass/Vol] 33.3 g/dL 32-36 [facility] Work Phone: No Panel Informationon 07-26 Estimated GFR (MDRD) Amer 72 mL/min >60 [facility] Work Phone: Comment on above: GFR Calc Estimated GFR (MDRD) Non-Af Amer 60 mL/min >60 [facility] Work Phone: Comment on above: Non- GFR Calc Platelets bldon 07-26-2021 Platelets (Bld) [#/Vol] 239 10*3/uL 150-450 [facility] Work Phone: Serum or plasma albumin julee urement (mass/volume)on 07-26-2021 Albumin [Mass/Vol] 3.2 g/dL 3.2-5.0 [facility] Work Phone: Serum or plasma albumin/glob ulin mass ratioon 07-26-2021 Albumin/Globulin [Mass ratio] 0.9 {ratio} 0.9-2.4 [facility] Work Phone: Serum or plasma calcium julee urement (mass/volume)on 07-26-2021 Calcium [Mass/Vol] 8.6 mg/dL 8.5-10.1 [facility] Work Phone: Serum or plasma cholesterol in HDL measurement (mass/volume)on 07-26-2021 Cholesterol in HDL [Mass/Vol] 57 mg/dL [facility] Work Phone: Comment on above: The drugs N-Acetylcy steine and Metamizole may falsely depress this assay. Reference Range HDL <40 mg/dL Low HDL Cholesterol HDL >or= 60 mg/dL High HDL Cholesterol Serum or plasma cholesterol in VLDL measurement (mass/volume)on 07-26-2021 Cholesterol in VLDL [Mass/Vol] 21 mg/dL 5-40 [facility] Work Phone: Serum or plasma creatinine m easurement (mass/volume)on 07-26-2021 Creatinine [Mass/Vol] 1.00 mg/dL 0.55-1.02 [facility] Work Phone: Comment on above: The validity of the calculated GFR & GFRAA in patients over 70 years has not been determined. Clinical correlation is essential. Serum or plasma low density lipoprotein (LDL) cholesterol measurement (mass/volume)on 07-26-2021 Cholesterol in LDL [Mass/Vol] 97 mg/dL 0-130 [facility] Work Phone: Serum or plasma urea nitroge n measurement (mass/volume)on 07-26-2021 Urea nitrogen [Mass/Vol] 22 mg/dL 7-18 [facility] Work Phone: Thin prep Papanicolaou smear with manual screeningon 07-26-2021 Thin prep Papanicolaou smear with manual screening 19 U/L 15-37 [facility] Work Phone: Comment on above: Slight Hemolysis, Re sult may be falsely increased. Thin prep Papanicolaou smear with manual screening 4 5-15 [facility] Work Phone: Whole blood hemoglobin A1c/t otal hemoglobin ratio (mass fraction)on 07-26-2021 HbA1c (Bld) [Mass fraction] 5.6 % 3.8-5.6 [facility] Work Phone: Comment on above: Normal < 5.7 % Predi abetic 5.7 - 6.4 % Diabetic >or= 6.5 % Please note range changes. Vital Signs Date Time Vital Sign Value Performing Clinician Faci lity 10-03-2024 08:42-0400 Body height 157.[address] Dwayne Gibson MD Work Phone: [facility] 10-03-2024 08:42-0400 Body weight 86.[address] Dwayne Gibson MD Work Phone: [facility] 06-25-2024 10:34-0400 Body temperature 98.6 [degF] Dr. Dwayne Gibson MD Work Phone: [facility] 06-25-2024 10:34-0400 Diastolic blood pressure 78 mm[Hg] Dr. Dwayne Gibson MD Work Phone: [facility] 06-25-2024 10:34-0400 Heart rate 78 /min Dr. Dwayne Gibson MD Work Phone: [facility] 06-25-2024 10:34-0400 Respiratory rate 16 /min Dr. Dwayne Gibson MD Work Phone: [facility] 06-25-2024 10:34-0400 SaO2% (BldA) [Mass fraction] 98 % Dr. Dwayne Gibson MD Work Phone: [facility] 06-25-2024 10:34-0400 Systolic blood pressure 134 mm[Hg] Dr. Dwayne Gibson MD Work Phone: [facility] 06-25-2024 10:32-0400 Body height 157.[address] Dwayne Gibson MD Work Phone: [facility] 06-25-2024 10:32-0400 Body mass index (BMI) [Ratio] 35.4 kg/m2 Dr. Dwayne Gibson MD Work Phone: [facility] 06-25-2024 10:32-0400 Body weight 87.[address] Dwayne Gibson MD Work Phone: 2(483)[phone] [address] 04-25-2023 08:46-0500 Body height 157.[address] Dwayne Gibson Work Phone: 8([phone])247-447085 [place] [address] 04-25-2023 08:46-0500 Body mass index (BMI) [Ratio] 32.2 kg/m2 Dr. Dwayne Gibson Work Phone: 1(015)261-565285 [place] [address] 04-25-2023 08:46-0500 Body temperature 98 [degF] Dr. Dwayne Gibson Work Phone: 4([phone])[phone] [place] [address] 04-25-2023 08:46-0500 Body weight 79.[address] Dwayne Gibson Work Phone: [facility] 04-25-2023 08:46-0500 Diastolic blood pressure 76 mm[Hg] Dr. Dwayne Gibson Work Phone: [facility] 04-25-2023 08:46-0500 Heart rate 93 /min Dr. Dwayne Gibson Work Phone: [facility] 04-25-2023 08:46-0500 Respiratory rate 15 /min Dr. Dwayne Gibson Work Phone: [facility] 04-25-2023 08:46-0500 SaO2% (BldA) [Mass fraction] 98 % Dr. Dwayne Gibson Work Phone: [facility] 04-25-2023 08:46-0500 Systolic blood pressure 132 mm[Hg] Dr. Dwayne Gibson Work Phone: [facility] 02-27-2022 09:50-0500 Diastolic blood pressure 67 mm[Hg] Dwayne Leung MD Work Phone: [facility] 02-27-2022 09:50-0500 Heart rate 81 /min Dwayne Leung MD Work Phone: [facility] 02-27-2022 09:50-0500 Respiratory rate 16 /min Dwayne Leung MD Work Phone: [facility] 02-27-2022 09:50-0500 SaO2% (BldA) [Mass fraction] 95 % Dwayne Leung MD Work Phone: [facility] 02-27-2022 09:50-0500 Systolic blood pressure 98 mm[Hg] Dwayne Leung MD Work Phone: [facility] 02-27-2022 09:33-0500 Body temperature 97.3 [degF] Dwayne Leung MD Work Phone: [facility] 02-27-2022 08:28-0500 Body height 154.9 cm Dwayne Leung MD Work Phone: [facility] 02-27-2022 08:28-0500 Body weight 72.58 kg Dwayne Leung MD Work Phone: [facility] Encounters Encounter Date Encounter Type Care Provider Facility Start: 11-01-2024 ambulatory Dwayne Gibson Facilit y:[facility] Start: 10-03-2024 End: 10-27-[address] Dwayne Gibson MD -Nutritional Services Work Phone: Start: 10-03-2024 End: 10-27-[address] Dwayne Gibson MD Work Phone: -Nutritional Services Start: 09-16-2024 End: 09-16-[address] Dwayne Gibson MD Work Phone: -Laboratory [facility] Start: 09-16-2024 End: 09-16-[address] Dwayne Gibson MD -Laboratory [facility] Start: 09-16-2024 End: 09-16-2024 ambulatory Dwayne Gibson Facility:[facility] Start: 09-13-2024 End: 09-13-[address] Dwayne Gibson MD Work Phone: [facility] Work Phone: Start: 09-13-2024 End: 09-13-[address] Dwayne Gibson MD -Laboratory [facility] Start: 09-13-2024 End: 09-13-2024 ambulatory Dwayne Gibson Facility:[facility] Start: 06-25-2024 End: 06-25-2024 Emergency department patient visit Dr. Dwayne Gibson MD Work Phone: -Emergency Department Work Phone: Start: 06-15-2024 End: 06-15-[address] Dwayne Gibson MD Work Phone: [facility] Work Phone: Start: 06-15-2024 End: 06-15-[address] Dwayne Gibson MD -Outpatient Bone Densitometry Work Phone: Start: 06-15-2024 End: 06-15-2024 ambulatory Dwayne Gibson Facility:[facility] Start: 06-07-2024 End: 06-07-[address] Dwayne Gibson MD Work Phone: [facility] Work Phone: Start: 06-07-2024 End: 06-07-[address] Dwayne Gibson MD -Laboratory, [facility] Start: 06-07-2024 End: 06-07-2024 ambulatory Dwayne Bandar Gibson Facility:[facility] Start: 03-14-2024 End: 03-14-[address] Dwayne Gibson MD -Laboratory, [facility] Start: 03-14-2024 End: 03-14-2024 ambulatory Dwayne Gibson Facility:[facility] Start: 12-03-2023 End: 12-03-2023 ambulatory Dwayne Gibson Facility:[facility] Start: 07-30-2023 End: 07-30-[address] Dwayne Gibson Work Phone: [facility] Work Phone: Start: 07-30-2023 End: 07-30-[address] Dwayne Gibson Work Phone: [facility] Start: 04-27-2023 End: 04-27-[address] Dwayne Gibson Work Phone: [facility] Work Phone: Start: 04-27-2023 End: 04-27-[address] [facility] Gibson [facility] Work Phone: Start: 04-25-2023 End: 04-25-[address] Dwayne Gibson Work Phone: [facility] Work Phone: Start: 12-26-2022 End: 12-26-2022 ambulatory MERARI TORO Facility:[facility] Start: 12-26-2022 End: 12-26-2022 ambulatory Immunization [facility] Nurse [facility] Work Phone: [facility] Start: 11-13-2022 End: 11-13-2022 ambulatory [facility] Work Phone: Start: 11-13-2022 End: 11-13-2022 Patient encounter procedure [facility]-Cardiovascular Services Work Phone: Start: 10-20-2022 End: 10-20-2022 ambulatory [facility] Work Phone: Start: 10-20-2022 End: 10-20-2022 Patient encounter procedure [facility] Start: 10-09-2022 End: 10-09-2022 ambulatory [facility] Work Phone: Start: 10-09-2022 End: 10-09-2022 Patient encounter procedure [facility] Start: 09-16-2022 End: 09-16-2022 ambulatory [facility] Work Phone: Start: 09-16-2022 End: 09-16-2022 [facility] encounter [facility] Start: 06-13-2022 End: 06-13-2022 ambulatory [facility] Work Phone: Start: 06-13-2022 End: 06-13-2022 Patient encounter procedure [facility] Start: 05-27-2022 End: 05-27-2022 ambulatory [facility] Work Phone: Start: 05-27-2022 End: 05-27-2022 Patient encounter procedure [facility] Start: 05-13-2022 End: 05-13-2022 ambulatory [facility] Work Phone: Start: 05-13-2022 End: 05-13-2022 Patient encounter procedure [facility] Start: 02-27-2022 End: 02-27-2022 ambulatory MERARI Zeng CORTEZ Facility:[facility] Start: 02-27-2022 End: 02-27-2022 Subsequent hospital visit by physician Dwayne Leung MD Work Phone: Gastroenterology Comment on above: Duodenal nodule [K31 .89] Start: 02-18-2022 Telephone encounter Samra Salcedo LPN Gastroenterology Comment on above: Appointment Start: 02-05-2022 ambulatory Guille Conde MD Work Phone: Ambulatory Surgery Start: 01-09-2022 End: 01-09-[address] Dwayne Gibson Work Phone: [facility] Work Phone: Start: 01-09-2022 End: 01-09-[address] Dwayne Gibson Work Phone: [facility] Start: 01-02-2022 End: 01-02-[address] Dwayne Gibson Work Phone: [facility] Work Phone: Start: 01-02-2022 End: 01-02-[address] Dwayne Gibson Work Phone: [facility] Start: 12-26-2021 ambulatory Dwayne Leung MD Work Phone: Gastroenterology Comment on above: schedule upper endos copy Start: 12-25-2021 End: 12-25-2021 ambulatory Dwayne Leung MD Work Phone: Gastroenterology Comment on above: Nodule of intestine (Primary Dx) Start: 12-25-2021 End: 12-25-2021 Telemedicine consultation with patient Dwayne Leung MD Work Phone: [facility] Start: 12-13-2021 End: 12-13-[address] Dwayne Gibson Work Phone: [facility] Work Phone: Start: 12-13-2021 End: 12-13-[address] Dwayne Gibson Work Phone: [facility]-Laboratory Start: 12-10-2021 Non-patient / Non-visit Dr. Dwayne Gibson Work Phone: [facility] Start: 12-10-2021 End: 12-10-[address] Dwayne Gibson Work Phone: [facility] Work Phone: Start: 12-10-2021 End: 12-10-[address] Dwayne Gibson Work Phone: [facility]-Pulmonary Services/Neurology Start: 12-05-2021 End: 12-05-2021 ambulatory [facility] Work Phone: Start: 12-05-2021 End: 12-05-2021 Patient encounter procedure [facility]-Outpatient Breast Imaging Start: 12-03-2021 End: 12-03-2021 ambulatory [facility] Work Phone: Start: 12-03-2021 End: 12-03-2021 Patient encounter procedure [facility] Start: 08-06-2021 Telephone encounter Zion Patel MD Work Phone: [facility] Comment on above: Appointment (CONSULT TO GI) Start: 08-01-2021 End: 08-01-2021 Patient encounter [facility] Start: 07-26-2021 End: 07-26-2021 Patient encounter procedure [facility] Start: 07-15-2021 End: 07-15-2021 ambulatory Zion Patel MD Work Phone: [facility] Comment on above: Duodenal mass (Prima ry Dx) Start: 07-15-2021 End: 07-15-2021 Telemedicine consultation with patient Zion Patel MD Work Phone: [facility] Start: 05-23-2021 End: 05-23-2021 Patient encounter procedure [facility]-Cat Scan, [facility] Start: 04-05-2021 End: 04-05-2021 Patient encounter procedure [facility]-Laboratory, Specimen Procedures Date Procedure Procedure Detail Performing Clinician Start: 09-13-2024 Vitamin D, 25-hydroxy measurement Dr. Dwayne Gibson MD Work Phone: Comment on above: Vitamin D StatusDeficiency: <20 ng/mL (5 0nmol/L)Insufficiency: 20-30 ng/mL (50-75 nmol/L)Sufficiency: 30-100 ng/mL (75-250 nmol/L)Toxicity: >100 ng/mL (>250 nmol/L) Start: 06-15-[address] Dwayne Gibson MD Work Phone: Start: 06-15-2024 Dual energy X-ray absorptiometry Dr. Dwayne Gibson MD Work Phone: Start: 06-07-2024 Urnls dip stick/tablet reagent auto microscopy Dr. Dwayne Gibson MD Work Phone: Start: 06-07-[address] Dwayne Gibson MD Work Phone: Start: 06-07-2024 Serum inorganic phosphate measurement Dr. Dwayne Gibson MD Work Phone: Start: 06-07-2024 Vitamin D, 25-hydroxy measurement Dr. Dwayne Gibson MD Work Phone: Comment on above: Vitamin D StatusDeficiency: <20 ng/mL (5 0nmol/L)Insufficiency: 20-30 ng/mL (50-75 nmol/L)Sufficiency: 30-100 ng/mL (75-250 nmol/L)Toxicity: >100 ng/mL (>250 nmol/L) Start: 04-27-[address] Dwayne Gibson Work Phone: Start: 12-26-2022 INFLUENZA VACCINE, AGE 6 MO - 64 YR, QUADRIVALENT (AFLURIA, FLULAVAL, FLUZONE) Vinicius Antunez MD Work Phone: Start: 11-13-2022 US urinary tract Start: 09-16-2022 CT of chest without contrast Start: 05-27-2022 Positron emission tomography with computed tomography Start: 05-13-2022 CT of chest without contrast Start: 05-13-2022 US scan of thyroid Start: 02-27-2022 Esophagoscp rig transoral hypopharynx crv viral Leung MD Work Phone: Start: 12-05-2021 Screening mammography Start: 12-03-2021 Plain chest X-ray Start: 05-23-2021 CT of chest without contrast Start: 05-23-2021 Thyroid Start: 04-05-2021 End: 04-05-2021 Ova OR parasites identification Start: 07-05-2015 Colonoscopy Zion Patel MD Work Phone: Start: 11-20-2014 Lipid 1996 panel - Serum or Plasma Immunization [facility] Work Phone: Start: 01-20-2014 Mammography Zion Patel MD Work Phone: H/O: tubal ligation History of t ubal ligation History of appendectomy History of append ectomy History of cholecystectomy History of cholecystectomy Plan of Treatment Date Care Activity Detail Author Start: 06-25-2024 End: 06-25-2024 [facility] Start: 11-28-2021 Influenza vaccination INFLUENZA (#1) [facility] Start: 07-04-2020 Colonoscopy COLONOSCOPY [facility] Start: 07-04-2020 COLORECTAL CANCER SCREENING COLORECTAL CANCER SCREENING [facility] Start: 11-21-2019 Lipid 1996 panel - S sagar or Plasma Lipid Screening [facility] Start: 11-21-2019 LIPID SCREEN LIPID SCREEN [facility] Start: 03-26-2018 DIABETES SCREEN DIABETES SCREEN [facility] Start: 03-26-2018 Diabetes Screening Diabetes Screenin g [facility] Start: 07-12-2017 Urine microalbumin profile [facility] Start: 01-20-2015 Mammography [facility] Start: 12-31-2014 PNEUMOCOCCAL (2 - PCV) PNEUMOCOCCAL (2 - PCV) [facility] Start: 12-31-2014 Pneumococcal vaccination Pneum ococcal Vaccine (2 - PCV) [facility] Start: 07-24-2013 HPV TESTING HPV TESTING [facility] Start: 07-24-2013 PAP TESTING PAP TESTING [facility] Start: 2009 SHINGRIX VACCINE (1 of 2) SHINGRIX VACCINE (1 of 2) [facility] Start: 01-24-2004 COLOGUARD (FIT-DNA) COLOGUARD (FIT-D NA) [facility] Start: 01-24-[address] COLONOGRAPHY [facility] Start: 01-24-2004 FECAL OCCULT BLOOD FECAL OCCULT BLOO D [facility] Start: 01-24-2004 SIGMOIDOSCOPY SIGMOIDOSCOPY [facility] Start: 1977 HEPATITIS C SCREENING HEPATITIS C SC SINDHU [facility] Start: 1977 HIV SCREENING HIV SCREENING [facility] Patient Education ED Muscle Spasm [facility] Work Phone: Patient referral [facility] Work Phone: End: 02-05-2023 Screening colonoscopy COLONOSCOPY SCREENING Endoscopy Routine Screening for colon cancer 1 Occurrences starting 02/05/2022 until 02/05/2023 [facility] Work Phone: Comment on above: 1 Occurrences starti ng 02/05/2022 until 02/05/2023 [facility] Immunizations Immunization Date Immunization Notes Care Provider Ethel dover 12-26-2022 influenza, injectabl e, quadrivalent, contains preservative Immunization [facility] Work Phone: [facility] Work Phone: 07-07-2020 COVID-19 vaccine, ag e 12+ yr (PFIZER-BIONTECH - PURPLE TOP) Zion Patel MD Work Phone: [facility] 06-16-2020 COVID-19 vaccine, ag e 12+ yr (PFIZER-BIONTECH - PURPLE TOP) Zion Patel MD Work Phone: [facility] Work Phone: 05-28-2020 COVID-19 vaccine, ag e 12+ yr (PFIZER-BIONTECH - PURPLE TOP) Zion Patel MD Work Phone: [facility] 12-31-2013 influenza, seasonal, injectable Zion Patel MD Work Phone: [facility] Work Phone: 12-31-2013 pneumococcal polysaccharide vaccine, 23 valent Zion Patel MD Work Phone: [facility] Work Phone: 02-10-2011 influenza virus vaccine, unspecified formulation Zion Patel MD Work Phone: [facility] 01-04-2009 influenza virus vaccine, unspecified formulation Zion Patel MD Work Phone: [facility] Work Phone: 07-13-2007 diphtheria and tetan us toxoids, adsorbed for pediatric use Zion Patel MD Work Phone: [facility] Work Phone: Payers Date Payer Category Payer Self-pay [id number] 2023 Self-pay [id number] [address] [facility] UMR CHOICE PLUS [id number] 2013-Present [phone] [address] [address] [place] [address] HMO [id number] [facility] UMR CHOICE PLUS [id number] 2013-Present [phone] [address] [address] [place] [address] HMO [id number] 2002 Unknown [id number] Unknown [id number] Unknown [id number] Unknown [id number] Unknown [id number] Unknown [id number] Unknown [id number] Unknown [id number] Unknown [id number] Unknown [id number] Social History Date Type Detail Facility Start: 03-22-2015 End: 06-25-2024 Tobacco smoking status NHIS Smokes tobacco daily [facility] History of tobacco use Cigarette Smoker [facility] Start: 03-22-2015 End: 04-25-2022 Cigarettes smoked current (pack per day) - Reported 0.5 [facility] Start: 03-22-2015 End: 06-25-2015 Tobacco use and exposure Smokeless tobacco non-user [facility] Start: 07-15-2021 End: 02-27-2022 Alcohol intake Current drinker of alcohol (finding) [facility] Start: 1960 Sex Assigned At Female [facility] Start: 10-16-2020 End: 04-25-2023 Tobacco smoking status MSIS Unknown if ever smoked [facility] Start: 07-26-2018 None [facility] Start: 06-19-2020 Spouse/ Signif icant Other [facility] Start: 02-07-2019 Cigarettes [facility] Start: 12-13-2021 End: 02-27-2022 Exposure to SARS-CoV-2 (event) Not sure [facility] Start: 02-27-2022 End: 04-25-2022 Tobacco use panel [facility] National Score (1-10 0), lower number is lower risk 51 [facility] Start: 06-04-2020 Gender identity Identifies as female gender (finding) [facility] Start: 06-04-2020 Sexual orientation Heterosexual (fin ding) [facility] Start: 06-17-2024 End: 06-25-2024 Sex Female (finding) [facility] Clinical Notes 07-15-2021 to 06-25-2024 Elizabeth Vang RN - 02/27/2022 9:45 AM Kandice Calvo LPN - 02/27/2022 8:19 AM ESTSedation Documentation - Roxanna Gomez RN - 02/27/2022 8:59 AM Adriano Leung MD - 02/27/2022 8:30 AM EST Note Date & Type Note Facility 06-25-2024 Discharge summary [facility] 02-27-2022 Note Q3 Patient Name: Екатерина Cross Procedure Date: 02/27/2022 8:48 AM Date of : 1960 Admit Type: Outpatient Age: 62 Gender: Female Note Status: Finalized Attending MD: Dwayne Leung MD Procedure: Upper EUS Indications: Abnormal abdominal/pelvic CT scan Providers: Dwayne Leung MD, Jadon Hastings MD (Fellow) Patient Profile: This is a 62 year old female. Refer to note in patient chart for documentation of history and physical. Referring Physician: Dwayne Leung MD (Referring MD) Medicines: Monitored Anesthesia Care Requesting Provider: Procedure: Pre-Anesthesia Assessment: - Prior to the procedure, a History and Physical was performed, and patient medications and allergies were reviewed. The patient's tolerance of previous anesthesia was also reviewed. The risks and benefits of the procedure and the sedation options and risks were discussed with the patient. All questions were answered, and informed consent was obtained. Prior Anticoagulants: The patient has taken no anticoagulant or antiplatelet agents. ASA Grade Assessment: II - A patient with mild systemic disease. After reviewing the risks and benefits, the patient was deemed in satisfactory condition to undergo the procedure. After obtaining informed consent, the endoscope was passed under direct vision. Throughout the procedure, the patient's blood pressure, pulse, and oxygen saturations were monitored continuously. The Endosonoscope was introduced through the mouth, and advanced to the second part of duodenum. The Endoscope was introduced through the mouth, and advanced to the second part of duodenum. The upper EUS was accomplished without difficulty. The patient tolerated the procedure well. Moderate Sedation: MAC anesthesia was administered by the anesthesia team. Findings: ENDOSCOPIC FINDING: : The examined esophagus was normal. The entire examined stomach was normal. There was a large lipoma, 20 mm in diameter, in the second portion of the duodenum. ENDOSONOGRAPHIC FINDING: : A round intramural (subepithelial) lesion was found in the second portion of the duodenum. The lesion was hyperechoic. Endosonographically, the lesion appeared to originate from within the submucosa (Layer 3). The lesion measured 20 mm (in maximum thickness). The outer margins were well defined. There was dilation in the common bile duct which measured up to 8 mm without any stone, sludge or mass. There was no sign of significant endosonographic abnormality in the visualized portion of the liver. There was no sign of significant endosonographic abnormality in the pancreatic head, genu of the pancreas, pancreatic body and main pancreatic duct. No masses, no cysts, no calcifications, the pancreatic duct was regular in contour. Impression: - Normal esophagus. - Normal stomach. - Duodenal lipoma. - An intramural (subepithelial) lesion was found in the second portion of the duodenum. The lesion appeared to originate from within the submucosa (Layer 3). The diagnosis is a lipoma. - There was dilation in the common bile duct which measured up to 8 mm. No stone, sludge or mass. - There was no evidence of significant pathology in the visualized portion of the liver. - There was no sign of significant pathology in the pancreatic head, genu of the pancreas, pancreatic body and main pancreatic duct. - No specimens collected. Estimated Blood Loss: Estimated blood loss: none. Recommendation: - Discharge patient to home. - Resume previous diet. - Continue present medications. Procedure Code(s): --- Professional --- 50185 Diagnosis Code(s): --- Professional --- D17.5 K83.8 R93.5 CPT copyright 2020 [employer]. All rights reserved. Attending Participation: I was present and participated during the entire procedure, including non-hooper portions. Scope In: 9:01:25 AM Scope Out: 9:23:[address] Dwayne Leung MD, MPH Dwayne Leung MD 02/27/2022 9:30:41 AM This report has been signed electronically by Dwayne Leung MD Number of Addenda: 0 Note Initiated On: 02/27/2022 8:48 AM [facility] 02-27-2022 Nurse Note AMBULATORY PATIENT EDUCATION NOTE TOPIC: GI PROCEDURES: Endoscopic Ultrasound (EUS) with or without Fine Needle Aspiration (FNA) Esophagogastroduodenoscopy(EGD) with or without biopies based on clinical findings, removal of polyps or lesions READINESS TO LEARN INSTRUCTION PROVIDED TO: Patient, readness to learn accessed prior to procedure COGNITIVE ABILITY: Alert and oriented PTED MOTIVATION TO LEARN: Eager FAMILY SUPPORT: High - Very involved in pt care IPATIENT LEARNS BEST BY: Individual Instruction FACTORS AFFECTING LEARNING: None PHYSICAL LIMITATIONS AFFECTING LEARNING: None LEARNING RESPONSE METHOD OF INSTRUCTION: Individual instruction PATIENT / FAMILY RESPONSE: Verbalizes understanding of: WORSENING CONDITION-Signs and symptoms of a worsening condition that warrant a call to the physician FOLLOW-UP PLAN: Complete - No need for follow-up SUPPLEMENTAL MATERIAL: Procedure Discharge Instructions REFERRAL (RECOMMENDATION): None PRE OP LEARNING ASSESSMENT PROCEDURE/SURGERY: GI PROCEDURES: EGD READINESS TO LEARN COGNITIVE ABILITY: Alert and oriented MOTIVATION TO LEARN: Eager Interested FAMILY SUPPORT: High - Very involved in pt care PATIENT LEARNS BEST BY: Individual Instruction Written Instruction - Hand-outs Verbal Instruction FACTORS AFFECTING LEARNING: None PHYSICAL LIMITATIONS AFFECTING LEARNING: None Electronically Signed By: Jessi Calvo LPN In Department: GASTROENTEROLOGY documented in this encounter [facility] 02-27-2022 Miscellaneous Notes patient removed partial denture in preop area gave to documented in this encounter [facility] 02-27-2022 History and physical note HISTORY AND PHYSICAL Екатерина Ba, 62 year old female Current history and physical on file: Yes Is a new History and Physical required for today's visit? Yes Indication for procedure: Other duodenal nodule PROCEDURE(S) SCHEDULED FOR: EUS/FNA (Endoscopic Ultrasound with or without Fine Needle Aspiration), based on clinical findings. BASELINE BEHAVIOR: Calm BASELINE ORIENTATION: A & O x3 All medications and allergies reviewed: Yes Skin Assessment: Warm dry mucus membranes pink Airway/Respiratory Assessment: Airway: visualization of the uvula- Yes Mouth: opening greater than 2 fingerbreadths- Yes Neck: full range of motion- Yes Breath sounds clear/equal- Yes Cardiac Assessment: Regular rate and rhythm without murmur Abdominal Assessment: Abdomen soft, non-tender, no masses or organomegaly. Sedation Plan: Moderate and MAC Additional Comments: None Dwayne Leung II, MD documented in this encounter [facility] 02-18-2022 Miscellaneous Notes Attempted to reach the patient at the contact number that they provided [phone] (home) . Unable to speak with patient so without identifying the patient the following information was left on their voice mail: Date of procedure, location and report time Prep instructions A message was left informing the patient/patient phone representative they must have a responsible adult accompany them to their procedure; and remain in the endoscopy area until they are discharged. Failure to have a responsible adult accompany the patient to their procedure appointment prevents the use of sedation or anesthesia for their procedure; and can result in cancellation of the procedure NPO instructions were reviewed. Clear liquids the day before the procedure, stop all liquids 4 hours before the procedure Instructions to contact their primary care provider regarding their medications and which medications to stop in preparation for their procedure Instructions to completely read and follow the written instructions that they recieved regarding their procedure. Number to call with questions or concerns [phone] Number to call to cancel their procedure [phone] Samra Salcedo LPN documented in this encounter [facility] 02-05-2022 Note Patient Outreach ( CIND) -------- ЕКАТЕРИНА BA ([id number]) 1960 F DEF Date Time Provider Department 02/05/22 GUILLE CONDE During your visit today, we recorded the following information about you: Allergies As of Date: 02/05/2022 Noted Allergy Reaction DOXYCYCLINE 03/26/2015 6 - Diarrhea SEASONAL ALLERGIES 01/24/2014 14 - Other: See Comments Date Reviewed: 07/15/2021 Reviewed by: Zion Patel MD - Fully Assessed Visit Diagnosis:Screening for colon cancer [Z12.11] Order(s):COLONOSCOPY SCREENING [GI51] Order #: [id number] FUTURE Prescriptions as of 02/10/2022 - ACETAMINOPHEN 500 MG TAB as necessary Problem List As Of Date 02/05/2022 Noted Resolved TOBACCO USE DISORDER [F17.200] 06/12/2008 GASTROINTEST HEMORR NOS [K92.2] 08/28/2008 BENIGN NEOPLASM LG BOWEL [D12.6] 09/05/2008 FAMILY HX GI MALIGNANCY [Z80.0] 09/05/2008 Malignant neoplasm of kidney, except pelvis [C6*09/12/2008 Allergic Rhinitis [J30.9] 12/26/2008 Fatty Liver [K76.0] 07/09/2009 Cervicalgia [M54.2] 02/24/2011 Adenomatous colon polyp [D12.6] 03/17/2011 Renal cyst [N28.1] 04/07/2011 Hematuria [R31.9] 04/07/2011 Depression [F32.A] 04/17/2011 Cervical radiculopathy [M54.12] 04/17/2011 Renal cell carcinoma [C64.9] 04/24/2011 Solitary kidney [DTB0270] 04/24/2011 Deaf [H91.90] 07/31/2011 Digital nerve laceration, finger [S64.40XA] 12/02/2012 Laceration of thumb with tendon involvement [S6*12/02/2012 Impingement syndrome of right shoulder [M75.41] 01/13/2013 Bilateral hearing loss [H91.93] 06/25/2015 GERD (gastroesophageal reflux disease) [K21.9] 06/25/2015 Encounter Status:Closed by EPIC, PRODUSER on 02/10/22 [facility] 01-01-[address] Leung can you place the order for the upper endoscopy so she can get scheduled? Thank you, Doris [employer] documented in this encounter [facility] 12-25-2021 History of Present illness Narrative VIRTUAL VISIT PROGRESS NOTE This is a virtual visit using Invajo video visit. It required patient-provider interaction for the medical decision making as documented below. Екатерина Ba is a 61 year old female seen for 61-year-old female who is being seen in follow-up. I the pleasure of meeting her earlier this year for evaluation of a duodenal lesion that was thought to be a lipoma. A CT scan had described a 2.5 x 1.1 cm fatty polypoid abnormality in the second portion of the duodenum. The report come paired findings with the previous CT obtained in December 2018. It mentioned a 2.5 x 1.1 cm abnormality. In addition there is evidence of mild central biliary dilation with no evidence of any other abnormalities. It should be noted that the patient has had a previous cholecystectomy. Orders for an EUS were placed in January. She is doing well from GI standpoint. Was working with scheduling previously but EGD/EUS was not scheduled. She has the direct number. I have asked her to reach out to me via Invajo, if not scheduled within the next 24 hours. HISTORY REVIEWED (electronic chart updated): PAST MEDICAL HISTORY Diagnosis Date Benign neoplasm of colon Benign neoplasm of colon 2008 Mateo II-III/IV. Path T3b N0 Mx Benign neoplasm of rectum and anal canal Deaf Family history of malignant neoplasm of gastrointestinal tract Hx of renal cell cancer Impaired glucose tolerance Peptic ulcer, unspecified site, unspecified as acute or chronic, without mention of hemorrhage, perforation, or obstruction 1996 Peptic ulcer disease Personal history of colonic polyps PAST SURGICAL HISTORY Procedure Laterality Date APPENDECTOMY CHOLECYSTECTOMY HX lab COLONOSCOPY FLX DX W/COLLJ SPEC WHEN PFRMD 09/05/2008 Colonoscopy COLONOSCOPY FLX DX W/COLLJ SPEC WHEN PFRMD 07/05/15 Colonoscopy (MAC) COLSC FLX W/RMVL OF TUMOR POLYP LESION SNARE TQ 06/23/11 repeat 5 years ESOPHAGOGASTRODUODENOSCOPY TRANSORAL DIAGNOSTIC 1996 EGD PAST SURGICAL HISTORY OF 1996 SBO PAST SURGICAL HISTORY OF 2008 L radical nephrectomy PAST SURGICAL HISTORY OF 11/09/2012 laceration of right thumb and tendon repair; done at hospital in [place] PAST SURGICAL HISTORY OF 12/2014 Hysteroscopy, D&C FAMILY HISTORY Problem Relation Age of Onset Cancer Mother stomach ca. age 51 Colon Cancer Father at age 70 Cancer Maternal Grandfather stomach ca. Social History Tobacco Use Smoking status: Every Day Packs/day: 0.50 Years: 30.00 Pack years: 15.00 Types: Cigarettes Smokeless tobacco: Never Substance Use Topics Alcohol use: Yes Comment: occ. Drug use: No Current Outpatient Medications Medication Sig ACETAMINOPHEN 500 MG TAB as necessary No current facility-administered medications for this visit. ALLERGIES Allergen Reactions Doxycycline Diarrhea Seasonal Allergies Other: See Comments ASSESSMENT: Duodenal lipoma, mildly dilated CBD PLAN: We will again place orders for an upper endoscopy with endoscopic ultrasound to evaluate the duodenal nodule as well as the mild central biliary dilation. There are no Patient Instructions on file for this visit. I spent a total of 10 minutes on the date of the service which included [id number] patient care Answers submitted by the patient for this visit: Review of Systems Gastroenterology (Submitted on 12/23/2021) Fever: No Chills: No Night Sweats: No Unitentional Weight Change: No A Cough: No Difficulty Breathing: No Chest Pain: No Belly pain: No A feeling of fullness or have belly pain after eating: No Food getting stuck in your throat or chest after eating: No Nausea - that is, a feeling like you could vomit: No Regurgitation - that is, food or liquid coming back up into your throat or mouth without vomiting, or feel burning behind your breast bone: No Loss of appetite: No To throw up or vomit: No Blood in your stools: No Black tarry stools: No Loose or watery stools: No The feeling like you need to empty your bowels right away - that is, feel as if you would have an accident: Yes Bowel incontinence - that is, have an accident because you cannot make it to the bathroom in time: No Problems with straining while having bowel movements , hard or lumpy stools, or feel unfinished (that you have not passed all your stool): No Pain in rectum or anus during bowel movements: No Problems with jaundice - that is, yellow discoloration of your skin or eyes, now or in the past: No Problems with having to flush the toilet more than two times due to oily stool, or see stool floating with oil: No documented in this encounter [facility] 08-06-2021 Miscellaneous Notes LEFT MESSAGE FOR PATIENT THAT WE HAVE BEEN IN CLOSE CONTACT WITH DR. MORALES'S OFFICE, HE HAS AGREED TO DO THE EUS/FNA, BUT HE IS NEEDING TO LOOK FURTHER INTO HER RECORDS BEFORE SCHEDULING PROCEDURE. LEFT PHONE TO DR. MORALES'S OFFICE FOR PATIENT TO CALL FOR UPDATES. Ángela Richter LPN documented in this encounter [facility] 07-15-2021 Note HNO ID: [id number] Author: Zion Patel MD Service: ? Author Type: Physician Type: Progress Notes Filed: 07/15/2021 2:17 PM Note Text: Zion Patel M.D. Surgical Oncology [address] [facility], [address] [place] [address] TELEPHONE VISIT NOTE SUBJECTIVE Екатерина Ba is a 61 year old female presenting for evaluation of a duodenal mass. Patient underwent a CT scan in September 2020. This demonstrated a 2.5 x 1.1 cm fatty polypoid lesion in the second portion of the duodenum as well as some mild common bile duct dilatation. Patient was referred to gastroenterology who she saw on January 28, 2021. At that time labs and a EUS/FNA was recommended. However this was never scheduled and patient was referred to surgical oncology for further evaluation at the request of her local terry cloth cutter hand. Currently, patient reports that overall she is feeling well. She has had some abdominal complaints intermittently in the past. She reports she currently has no nausea or vomiting. No significant abdominal pain now. No fevers chills or sweats. Normal bowel movements. She reports no yellowing of the skin or eyes. The ROS, medical, surgical, family, and social history were reviewed by Zion Patel MD Plan 61-year-old woman with a likely lipomatous lesion of the second portion of the duodenum. Advised patient that evaluation with EUS was a very reasonable next step in her management. Therefore I will refer the patient to gastroenterology here for the first available. Advised patient that she can follow-up with me after to discuss further steps in her management. Answered all of her questions to her satisfaction and she is agreeable to this plan. Total time of telephone encounter: 15 minutes Zion Patel MD 07/15/2021 10:50 AM [facility] 07-15-2021 History of Present illness Narrative Images from the original note were not included. Zion Patel M.D. Surgical Oncology [address] [facility], [address] [place] [id number] TELEPHONE VISIT NOTE SUBJECTIVE Екатерина Ba is a 61 year old female presenting for evaluation of a duodenal mass. Patient underwent a CT scan in September 2020. This demonstrated a 2.5 x 1.1 cm fatty polypoid lesion in the second portion of the duodenum as well as some mild common bile duct dilatation. Patient was referred to gastroenterology who she saw on January 28, 2021. At that time labs and a EUS/FNA was recommended. However this was never scheduled and patient was referred to surgical oncology for further evaluation at the request of her local terry cloth cutter hand. Currently, patient reports that overall she is feeling well. She has had some abdominal complaints intermittently in the past. She reports she currently has no nausea or vomiting. No significant abdominal pain now. No fevers chills or sweats. Normal bowel movements. She reports no yellowing of the skin or eyes. The ROS, medical, surgical, family, and social history were reviewed by Zion Patel MD Plan 61-year-old woman with a likely lipomatous lesion of the second portion of the duodenum. Advised patient that evaluation with EUS was a very reasonable next step in her management. Therefore I will refer the patient to gastroenterology here for the first available. Advised patient that she can follow-up with me after to discuss further steps in her management. Answered all of her questions to her satisfaction and she is agreeable to this plan. Total time of telephone encounter: 15 minutes Zion Patel MD 07/15/2021 10:50 AM documented in this encounter [facility] Discharge summary Note Date/Time June 25, 2024 11:11am [facility] Medical Records Department [address] [place] [address] Emergency Department Summary 06/25/24 MR#: [id number] Acct: [id number] Name: ЕКАТЕРИНА BA Rep #:[id number] : 1960 64 From: Odilon Guillaume MD PCP: Dr. Dwayne Gibson MD Status:CA E ER Location: ED HPI <Brandy Alejo RN - Last Filed: 06/25/24 11:10> History of Present Illness Chief Complaint: Back Detail of Chief Complaint: Right upper back Informant: patient Onset/Context/Timing Onset: Yesterday Context: Gradual Onset Chronic pain exacerbated by: Movement Quality: Sharp, Aching and Burning Location: See diagram Current Severity: 5/10 Maximum Severity: 8/10 Worsened by: improves with Movement Relieved by: Medications (Tylenol, heat) Associated Symptoms Associated Symptoms: Negative for Numbness, Tingling, Fever, Abdominal Pain, Dysuria, Urinary Retention, Urinary Incontinence or Constipation Narrative Narrative: Patient is a 64-year-old female with past medical history significant for chest pain, chronic gastritis, GERD with esophagitis, cholecystectomy, left nephrectomy, diverticulosis, recent diagnosis of osteoporosis who developed gradual onset of upper right thoracic back pain yesterday radiating to right shoulder. Of note, patient reports she was started on Fosamax 2 days prior to arrival. Pain is worse with palpation and movement. Denies numbness tingling. Patient denies injury. Patient denies fever, chills, chest pain, and shortness of breath. Patient with chronic cough. Denies increasing cough. Patient reports she did have some diarrhea 2 days ago and has been okay since. She did take some dicyclomine at that time. Denies hematuria, dysuria, and urinary frequency. Denies nausea and vomiting. Patient reports she has been using heatand Tylenol with mild relief. She denies any recent travel. Prior similar symptoms: No Recent Illness/[facility]ospital[facility]: [facility] <Brandy Alejo RN - Last Filed: 06/25/24 11:10> [facility] Medical History Hiatal hernia Chronic gastritis GERD with esophagitis Abdominal pain Abnormal CT scan, gastrointestinal tract Hyperlipidemia Diverticulosis Gastric ulcer Sacroiliitis Tobacco abuse GERD (gastroesophageal reflux disease) Home Medications ?Medication ?Instructions ?Recorded ?Last Taken ?Type omeprazole 20 mg capsule,delayed 20 mg PO DAILY 02/08/19 05:00 History release alendronate 70 mg tablet 70 mg PO QWEEK 06/25/24 Unkn own History ergocalciferol (vitamin D2) 1,250 1,250 mcg PO QWEEK 0 06/25/24 Unknown History mcg (50,000 unit) capsule metaxalone 800 mg tablet 800 mg PO TID 7 days #21 tab s 06/25/24 Unknown Rx rosuvastatin 20 mg tablet 20 mg PO QPM 06/25/24 Unknow n History valsartan 80 mg tablet 80 mg PO DAILY 06/25/24 Unkn own History Allergy/AdvReac Type Severity Reaction Status Date / Time No Known Allergies Allergy Verified 06/25/24 10:31 Family History Father Myocardial infarction Heart disease Colon cancer Mother Cancer duodenal Surgical History History of colonoscopy (~2015) History of esophagogastroduodenoscopy (EGD) (~2008) History of left nephrectomy History of tubal ligation history of lysis of adhesions History of cholecystectomy History of appendectomy Social History Smoking Status: Current every day smoker tobacco type: cigarettes ROS <Brandy Alejo RN - Last Filed: 06/25/24 11:10> ROS ED ROS Narrative Patient denies dizziness, lightheadedness, fever, chills, weakness. Patient does report she has chronic night sweats. Constitutional Constitutional ED: Reports sweats; Denies chills or fever(s) Eyes Eyes: Denies blurry vision, change in vision or diplopia ENT ENT ED: Denies ear pain, rhinorrhea or sore throat Cardiovascular Cardiovascular: Denies chest pain, orthopnea, palpitations, paroxysmal nocturnaldyspnea or racing heartbeat Respiratory/Chest Respiratory/Chest: Reports other Details: Chronic cough ; Denies dyspnea, dyspnea on exertion, orthopnea or paroxysmal nocturnal dyspnea Gastrointestinal Gastrointestinal: Denies abdominal pain, constipation, diarrhea, nausea or vomiting Genitourinary Genitourinary ED: Denies dysuria, hematuria or urinary frequency Musculoskeletal Musculoskeletal: Reports back pain; Denies arthralgias, myalgias or neck pain Integumentary Denies abscess, Abrasions or rash Neurologic Neurologic: Denies headache(s), paresthesias or weakness Psychiatric Psychiatric: Denies anxiety or depression EXAM <Brandy Alejo RN - Last Filed: 06/25/24 11:10> Physical Exam Narrative Exam Narrative: Patient sitting on edge of ED cot, awake and alert. at bedside. Patient pleasant and cooperative. No acute distress. Const Vital Signs: 06/25/24 10:32 06/25/24 10:34 Temperature 97.7 F L 98.6 F Temperature Source Oral Oral Pulse Rate 86 78 Respiratory Rate 16 16 Blood Pressure 128/84 H 134/78 H Blood Pressure Mean 98 96 Pulse Ox 96 98 Oxygen Delivery Method Room Air Room Air Positive well nourished and well developed General Appearance ED: well developed and NAD HEENT Reports moist mucous membranes Eyes PERRL and EOMs intact bilaterally Neck no lymphadenopathy, supple and no JVD Chest Wall Chest Narrative: No tenderness or crepitus with palpation. Resp normal respiratory effort and clear to auscultation bilaterally Auscultation: Negative for rales, rhonchi or wheezes Cardio regular rate, regular rhythm, S1 normal heart sound and S2 normal heart sound GI normal to inspection, nondistended, normoactive bowel sounds and soft to palpation Narrative: Denies hematuria, dysuria, urinary frequency Back/Spine normal to inspection Back/Spine Narrative: Tenderness to right upper thoracic area with palpation. Redness noted to mid upper back. Patient does report using heating pad last p.m. Cervical Spine: Negative for cervical spine tenderness Extremity normal to inspection and no clubbing, cyanosis or edema Neuro oriented x3 and no sensory deficits noted Sensorium / Orientation: alert Motor Exam: strength 5/5 throughout Psych mental status grossly normal Skin Skin Narrative: Redness to mid upper back Lesions: No lesion noted Rashes: No rashes noted Image ED - Body Diagram Man: 2 1. Redness <Dr. Odilon Guillaume MD - Last Filed: 06/25/24 11:11> Physical Exam Const Vital Signs: 06/25/24 10:32 06/25/24 10:34 Temperature 97.7 F L 98.6 F Temperature Source Oral Oral Pulse Rate 86 78 Respiratory Rate 16 16 Blood Pressure 128/84 H 134/78 H Blood Pressure Mean 98 96 Pulse Ox 96 98 Oxygen Delivery Method Room Air Room Air MDM <Brandy Alejo RN - Last Filed: 06/25/24 11:10> MDM MDM Narrative Medical decision making narrative: This appears to be musculoskeletal as it is reproducible. Patient will be givena dose of Skelaxin here. History & Record Review Discussion w/independent historian: Patient and Significant other Differential Diagnosis Differential Diagnosis: Back strain Differential Diagnosis: Muscle spasm Differential Diagnosis: Aortic dissection Management Discussion w/another healthcare provider: Other (Dr. Guillaume, ED provider) Treatment and Re-Evaluation Narrative: Patient given a dose of Skelaxin and will be sent home with a prescription for Skelaxin. Discussed treatment for muscle spasm. Patient understands plan and agreeable. Patient to be discharged home. <Dr. Odilon Guillaume MD - Last Filed: 06/25/24 11:11> [facility] Narrative Medical decision making narrative: I have personally performed a face to face assessment of the patient and have reviewed the JUAN ALBERTO Note. I performed a substantive portion of the visit including all aspects of the following. My hooper findings include: History is 64-year-old female with right upper back and shoulder pain for the last several days. Denies any fall injury or trauma. No weakness or numbness. No prior back history or surgery. Denies any recent illness. Exam is [well-appearing 64-year-old female. Vital signs are stable afebrile. No distress. in the room. H EENT exam normal. Neck nontender no lymphadenopathy. Lungs clear to auscultation bilaterally. Heart regular rhythm rate about 80 no murmur. Chest wall and ribs nontender. Abdomen soft nontender. Moving all 4 extremities. 5 out of 5 keno attendant strength. Strong radial pulse. Dorsi plantarflexion intact. Normal strength and sensation of both lower extremities. Back she has reproducible right upper shoulder and upper back pain consistent with a myofascial strain or spasm. There is no bruising. No discoloration of the where she had a heating pad. There is no shingles. She has normal range of motion of both upper extremities. The pain is reproducible with movement. Neurologic exam is normal. She has normal strength and sensation.] Medical Decision Making [64-year-old female history and exam are consistent with a myofascial strain and spasm. She be placed on Skelaxin 800 3 times daily. Hot shower, massage, whirlpool. Motrin and Tylenol. Outpatient follow-up as needed. She does not need any imaging or labs today. They would be of any benefit.] Other additions or changes: [None] History & Record Review Discussion w/independent historian: Patient and Family Additional record(s) reviewed:: Prior inpatient record and Prior outpatient record Discharge Plan Triage Chief Complaint: Back ED Provider: Odilon Guillaume Dx/Rx/DC Orders Clinical Impression: Muscle spasm Instructions: ED Muscle Spasm Prescriptions: New metaxalone 800 mg tablet 800 mg PO TID 7 Days Qty: 21 0RF No Action omeprazole 20 mg capsule,delayed release(DR/EC) 20 mg PO DAILY alendronate 70 mg tablet 70 mg PO QWEEK valsartan 80 mg tablet 80 mg PO DAILY ergocalciferol (vitamin D2) 1,250 mcg (50,000 unit) capsule 1,250 mcg PO QWEEK rosuvastatin 20 mg tablet 20 mg PO QPM Primary Care Provider: Dwayne Gibson Referrals: Dwayne Gibson MD [Primary Care Provider] - 1 Week if not improving Activity Restrictions/Additional Instructions: You have a muscle spasm in your right upper back and shoulder. Hot shower, warm bath, whirlpool, massage. Motrin for 100 mg 3 times a day for pain and inflammation. Tylenol for pain. The muscle relaxant Skelaxin 3 times a day for a week. Usually by day 4 you will start noticing significant improvement. Follow-up with your doctor if not improving. Print Language: Estonian Disposition Disposition: Home, Self Care What to do if you have Problems For any increased pain, shortness of breath, bleeding, nausea or vomiting, chestpain, or any unexpected problems, contact your Primary Care Provider. Call [facility] ([phone]) or report to the closest Emergency Room. Call 911 if necessary. 06/25/24 1111 <Electronically signed by Odilon Guillaume MD> Cosigner Signature (if applicable): CC: Dr. Dwayne Gibson MD ~ Signed [facility] Work Phone: Evaluation note* Diagnosis Duodenal mass- Primary Other specified disorder of stomach and duodenum documented in this encounter [facility] noteNo assessment information availableWRiverview [facility] Institute Work Phone: Evaluation note* Diagnosis Nodule of intestine- Primary documented in this encounter [facility] note* Diagnosis Screening for colon cancer Special screening for malignant neoplasms, colon documented in this encounter [facility] note* Diagnosis Duodenal nodule- Primary Other specified disorder of stomach and duodenum Dilated bile duct Other specified disorders of biliary tract [facility] Diagnosis Onset Date Resolution Status Urinary tract infection none active [facility] Work Phone: Hospital Discharge instructions Additional Instructions You have a muscle spasm in your right upper back and shoulder. Hot shower, warm bath, whirlpool, massage. Motrin for 100 mg 3 times a day for pain and inflammation. Tylenol for pain. The muscle relaxant Skelaxin 3 times a day for a week. Usually by day 4 you will start noticing significant improvement. Follow-up with your doctor if not improving.[facility] Work Phone: Reason for referral (narrative)* Outpatient Procedure (Routine) - Pending Review Specialty Diagnoses / Procedures Referred By Georges rodriguez Referred To Contact [facility] Diagnoses Screening for colon cancer Procedures COLONOSCOPY SCREENING COLONOSCOPY FLX DX W/COLLJ SPEC WHEN PFRMD Guille Conde MD [address] [place] [address] [facility] [address] [place] [address] Referral ID Status Reason Start Date Expiration Date Visits Requested Visits Authorized [id number] Pending Review Auto-Generat ed Referral 02/05/2022 02/05/2023 1 1 [facility] for referral (narrative)* Outpatient Procedure (Routine) - Closed Specialty Diagnoses / Procedures Referred By Georges rodriguez Referred To Contact ENDOSCOPY Diagnoses Duodenal nodule Dilated bile duct Procedures EGD - THERAPEUTIC, EUS, OR TUBE INTERVENTIONS EGD INTRMURAL US NEEDLE ASPIRATE/BIOPSY ESOPHAGS Dwayne Leung MD [address] [place] [address] [facility] [address] [place] [phone] Referral ID Status Reason Start Date Expiration Date V isits Requested Visits Authorized [id number] Closed Auto-Generate d Referral 01/01/2022 01/01/2023 1 [facility]No reason for referral information availableWRiverview [facility] Work Phone: Reason for visit Narrative* Outpatient Procedure (Routine) - Closed Specialty Diagnoses / Procedures Referred By Georges rodriguez Referred To Contact ENDOSCOPY Diagnoses Duodenal nodule Dilated bile duct Procedures EGD - THERAPEUTIC, EUS, OR TUBE INTERVENTIONS EGD INTRMURAL US NEEDLE ASPIRATE/BIOPSY ESOPHAGS Dwayne Leung MD [address] [place] [address] [facility] [address] [place] [phone] Referral ID Status Reason Start Date Expiration Date V isits Requested Visits Authorized [id number] Closed Auto-Generate d Referral 01/01/2022 01/01/2023 1 1 [facility] Advance Directives No Advanced Directives Records FoundDocuments on File Type Date Recorded 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 No June 25, 2024 10:34am Chief Complaint and Reason for Visit Chief Complaint NODULE Chief Complaint COUGH SCREENING Chief Complaint COUGH SCREENING COUGH Cough Chief Complaint PULM NODULE Chief Complaint PULM NODULE SOLITARY PULMONARY NODULE Chief Complaint SOLITARY PULMONARY N ODULE LUNG NODULE Chief Complaint LUNG NODULE Chief Complaint LUNG NODULE Chronic kidney disease, stage 3 unspecified Chief Complaint Urinary tract infect ion UTI Reason for Visit Urinary tract infect ion Chief Complaint Admit Date SCREENING POST TAMARA June 15, 2024 2:0 3pm Chief Complaint Admit Date SCREENING POST TAMARA June 15, 2024 2:0 3pm BACK PAIN June 25, 2024 10: 30am Chief Complaint Admit Date CKD October 03, 2024 8:45a m Family History No Family History Records Found Relationship Condition Age at Onset Recorded Date/T kenyatta father Myocardial infarction Unknown Cardiac disease Unknown Malignant neoplasm of colon Unknown mother Malignant neoplasm Unknown Summary Purpose Medications Administered Section Inactive Administered Medications - up to 3 most recent administrations Medication Order MAR Action Action Date Dose Rate Site NaCl 0.9% iv infusion 30 mL/hr, INTRAVENOUS, CONTINUOUS, Starting on Andreina 02/27/22 at 0830, Until 02/28/22 at 0417, Preprocedure New Bag/Syringe/Bottle 02/27/2022 8:30 AM EST 30 mL/hr 30 mL/hr Additional Source Comments Source Comments (unrecognize d section and content) In the event this informatio n is protected by the Federal Confidentiality of Alcohol and Drug Abuse Patient Records regulations: The Federal rules restrict any use of the information to criminally investigate or prosecute any alcohol or drug abuse patient.[facility] System[facility] the event this information is protected by the Federal Confidentiality of Alcohol and Drug Abuse Patient Records regulations: The Federal rules restrict any use of the information to criminally investigate or prosecute any alcohol or drug abuse patient.[facility] System[facility] the event this information is protected by the Federal Confidentiality of Alcohol and Drug Abuse Patient Records regulations: The Federal rules restrict any use of the information to criminally investigate or prosecute any alcohol or drug abuse patient.[facility] SystemIn the event this information is protected by the Federal Confidentiality of Alcohol and Drug Abuse Patient Records regulations: The Federal rules restrict any use of the information to criminally investigate or prosecute any alcohol or drug abuse patient.[facility] SystemIn the event this information is protected by the Federal Confidentiality of Alcohol and Drug Abuse Patient Records regulations: The Federal rules restrict any use of the information to criminally investigate or prosecute any alcohol or drug abuse patient.[facility] SystemIn the event this information is protected by the Federal Confidentiality of Alcohol and Drug Abuse Patient Records regulations: The Federal rules restrict any use of the information to criminally investigate or prosecute any alcohol or drug abuse patient.[facility] SystemIn the event this information is protected by the Federal Confidentiality of Alcohol and Drug Abuse Patient Records regulations: The Federal rules restrict any use of the information to criminally investigate or prosecute any alcohol or drug abuse patient.[facility] SystemIn the event this information is protected by the Federal Confidentiality of Alcohol and Drug Abuse Patient Records regulations: The Federal rules restrict any use of the information to criminally investigate or prosecute any alcohol or drug abuse patient.[facility] Reason for Visit (unrecogniz ed section and content) Reason Comments Mass Reason Comments Appointment CONSULT TO GI Reason Comments duodenal nodule Reason Comments Appointment Care Teams (unrecognized sec tion and content) Data Systems Analyst Relationship Specialty Start Date End Date Guille Conde MD [address] [place], [place] [id number] PCP - General Family Practice 09/18/14 Dwayne Gibson [address] [facility] [address] [place], [place] [address] Referring Family Practice 01/03/21 Brian Zaldivar MD [address] [facility] [address] [place] [address] Referring Gastroenterology 01/03/21 Zion Patel MD [address] [place], [place] [id number] Consulting General Surgery 07/15/21 Data Systems Analyst Relationship Specialty Start Date End Date Guille Conde MD [address] [place], [place] [id number] PCP - General Family Practice 09/18/14 Dwayne Gibson [address] [facility] [address] [place], [place] [address] Referring Family Practice 01/03/21 Brian Zaldivar MD [address] [place] [address] Referring Gastroenterology 01/03/21 Zion Patel MD [address] [place] [address] Consulting General Surgery 07/15/21 Data Systems Analyst Relationship Specialty Start Date End Date Guille Conde MD [address] [place] [address] PCP - General Family Medicine 09/18/14 Dwayne Gibson [address] [facility] [address] [place] [address] Referring Family Medicine 01/03/21 Brian Zaldivar MD [address] [place] [address] Referring Gastroenterology 01/03/21 Zion Patel MD [address] [place] [address] Consulting General Surgery 07/15/21 Data Systems Analyst Relationship Specialty Start Date End Date Guille Conde MD [address] [place] [address] PCP - General Family Medicine 09/18/14 Dwayne Gibson [address] [facility] [address] [place] [address] Referring Family Medicine 01/03/21 Brian Zaldivar MD [address] [place] [address] Referring Gastroenterology 01/03/21 Zion Patel MD [address] [place] [address] Consulting General Surgery 07/15/21 Data Systems Analyst Relationship Specialty Start Date End Date Guille Conde MD [address] [place] [address] PCP - General Family Medicine 09/18/14 Dwayne Gibson [address] [facility] [address] [place] [address] Referring Family Medicine 01/03/21 Brian Zaldivar MD [address] [place] [address] Referring Gastroenterology 01/03/21 Zion Patel MD [address] [place] [address] Consulting General Surgery 07/15/21 Data Systems Analyst Relationship Specialty Start Date End Date Guille Conde MD [address] [place] [address] PCP - General Family Medicine 09/18/14 Dwayne Gibson [address] [facility] [address] [place] [address] Referring Family Medicine 01/03/21 Brian Zaldivar MD [address] [place] [address] Referring Gastroenterology 01/03/21 Zion Patel MD [address] [place] [address] Consulting General Surgery 07/15/21 Data Systems Analyst Relationship Specialty Start Date End Date Guille Conde MD [address] [place] [address] PCP - General Family Medicine 09/18/14 Dwayne Gibson [address] [facility] [address] [place] [address] Referring Family Medicine 01/03/21 Brian Zaldivar MD [address] [place], [place] [address] Referring Gastroenterology 01/03/21 Zion Patel MD [address] [place], [place] [id number] Consulting General Surgery 07/15/21 Team Status: Active Member Role Status Dates Dr. Dwayne Gibson MD Family Provider Active Dr. Dwayne Gibson MD Primary Care Provider Active Team Status: Inactive Member Role Status Dates Dr. Dwayne Gibson MD Primary Care Pr ovider, Attending Provider, Referring Provider Active Team Status: Inactive Member Role Status Dates Dr. Dwayne Gibson MD Primary Care Provider, Attend ing Provider Active Data Systems Analyst Relationship Specialty Start Date End Date Dwayne Gibson MD [address] [place] [address] Referring Family Medicine 01/03/21 Brian Zaldivar MD [address] [place] [address] Referring Gastroenterology 01/03/21 Zion Patel MD [address] [place], [place] [id number] Consulting General Surgery 07/15/21 Team Status: Inactive Member Role Status Dates Dr. wDayne Gibson MD Primary Care Provider, Referr ing Provider Active MARILYN Schwartz Attending Provider Active Team Status: Inactive Member Role Status Dates Dr. Dwayne Gibson MD Primary Care Provider Active MARILYN Schwartz Attending Provider, Referring Pro vider Active Team Status: Active Member Role Status Dates Dr. Dwayne Gibson MD Primary Care Provider Active Team Status: Inactive Member Role Status Dates Dr. Dwayne Gibson MD Primary Care Provider Active Start: March 14, 2024 End: March 14, 2024 Dr. Dwayne Gibson MD Attending Provider Active Start: March 14, 2024 End: March 14, 2024 Dr. Dwayne Gibson MD Referring Provider Active Start: March 14, 2024 End: March 14, 2024 Team Status: Inactive Member Role Status Dates Dr. Dwayne Gibson MD Primary Care Provider Active Start: June 07, 2024 End: June 07, 2024 Dr. Dwayne Gibson MD Attending Provider Active Start: June 07, 2024 End: June 07, 2024 Dr. Dwayne Gibson MD Referring Provider Active Start: June 07, 2024 End: June 07, 2024 Team Status: Active Member Role Status Dates Dr. Dwayne Gibson MD Primary Care Provider Active Start: June 15, 2024 Dr. Dwayne Gibson MD Attending Provider Active Start: June 15, 2024 Dr. Dwayne Gibson MD Referring Provider Active Start: June 15, 2024 Team Status: Inactive Member Role Status Dates Dr. Dwayne Gibson MD Primary Care Provider Active Start: June 15, 2024 End: June 15, 2024 Dr. Dwayne Gibson MD Attending Provider Active Start: June 15, 2024 End: June 15, 2024 Dr. Dwayne Gibson MD Referring Provider Active Start: June 15, 2024 End: June 15, 2024 Team Status: Inactive Member Role Status Dates Dr. Dwayne Gibson MD Primary Care Provider Active Start: June 25, 2024 End: June 25, 2024 Dr. Odilon Guillaume MD Emergency Provider Active S tart: June 25, 2024 End: June 25, 2024 Team Status: Inactive Member Role Status Dates Dr. Dwayne Gibson MD Primary Care Provider Active Start: June 25, 2024 End: June 25, 2024 Dr. Odilon Guillaume MD Attending Provider Active S tart: June 25, 2024 End: June 25, 2024 Dr. Odilon Guillaume MD Emergency Provider Active S tart: June 25, 2024 End: June 25, 2024 Team Status: Inactive Member Role Status Dates Dr. Dwayne Gibson MD Primary Care Provider Active Start: September 13, 2024 End: September 13, 2024 Dr. Dwayne Gibson MD Attending Provider Active Start: September 13, 2024 End: September 13, 2024 Dr. Dwayne Gibson MD Referring Provider Active Start: September 13, 2024 End: September 13, 2024 Team Status: Active Member Role Status Dates Dr. Dwayne Gibson MD Primary Care Provider Active Start: September 16, 2024 Dr. Dwayne Gibson MD Attending Provider Active Start: September 16, 2024 Dr. Dwayne Gibson MD Referring Provider Active Start: September 16, 2024 Team Status: Active Member Role/Relationship Status Dates Dr. Dwayne Gibson MD Primary Care Provider Active Team Status: Inactive Member Role/Relationship Status Dates Dr. Dwayne Gibson MD Primary Care Provider Active Start: June 07, 2024 End: June 07, 2024 Dr. Dwayne Gibson MD Attending Provider Active Start: June 07, 2024 End: June 07, 2024 Dr. Dwayne Gibson MD Referring Provider Active Start: June 07, 2024 End: June 07, 2024 Team Status: Inactive Member Role/Relationship Status Dates Dr. Dwayne Gibson MD Primary Care Provider Active Start: June 15, 2024 End: June 15, 2024 Dr. Dwayne Gibson MD Attending Provider Active Start: June 15, 2024 End: June 15, 2024 Dr. Dwayne Gibson MD Referring Provider Active Start: June 15, 2024 End: June 15, 2024 Team Status: Inactive Member Role/Relationship Status Dates Dr. Dwayne Gibson MD Primary Care Provider Active Start: June 25, 2024 End: June 25, 2024 Dr. Odilon Guillaume MD Attending Provider Active S tart: June 25, 2024 End: June 25, 2024 Dr. Odilon Guillaume MD Emergency Provider Active S tart: June 25, 2024 End: June 25, 2024 Team Status: Inactive Member Role/Relationship Status Dates Dr. Dwayne Gibson MD Primary Care Provider Active Start: September 13, 2024 End: September 13, 2024 Dr. Dwayne Gibson MD Attending Provider Active Start: September 13, 2024 End: September 13, 2024 Dr. Dwayne Gibson MD Referring Provider Active Start: September 13, 2024 End: September 13, 2024 Team Status: Inactive Member Role/Relationship Status Dates Dr. Dwayne Gibson MD Primary Care Provider Active Start: September 16, 2024 End: September 16, 2024 Dr. Dwayne Gibson MD Attending Provider Active Start: September 16, 2024 End: September 16, 2024 Dr. Dwayne Gibson MD Referring Provider Active Start: September 16, 2024 End: September 16, 2024 Team Status: Inactive Member Role/Relationship Status Dates Dr. Dwayne Gibson MD Primary Care Provider Active Start: September 13, 2024 End: September 13, 2024 Dr. Dwayne Gibson MD Attending Provider Active Start: September 13, 2024 End: September 13, 2024 Dr. Dwayne Gibson MD Referring Provider Active Start: September 13, 2024 End: September 13, 2024 Team Status: Inactive Member Role/Relationship Status Dates Dr. Dwayne Gibson MD Primary Care Provider Active Start: September 16, 2024 End: September 16, 2024 Dr. Dwayne Gibson MD Attending Provider Active Start: September 16, 2024 End: September 16, 2024 Dr. Dwayne Gibson MD Referring Provider Active Start: September 16, 2024 End: September 16, 2024 Team Status: Inactive Member Role/Relationship Status Dates Dr. Dwayne Gibson MD Primary Care Provider Active Start: October 03, 2024 End: October 27, 2024 Dr. Dwayne Gibson MD Attending Provider Active Start: October 03, 2024 End: October 27, 2024 Dr. Dwayne Gibson MD Referring Provider Active Start: October 03, 2024 End: October 27, 2024 Goals (unrecognized section and content) Goals may be documented in a n alternate sectionGoals may be documented in an alternate sectionGoals may be documented in an alternate sectionGoals may be documented in an alternate sectionGoals may be documented in an alternate sectionGoals may be documented in an alternate sectionGoals may be documented in an alternate sectionGoals may be documented in an alternate sectionGoals may be documented in an alternate sectionGoals may be documented in an alternate sectionGoals may be documented in an alternate sectionGoals may be documented in an alternate sectionGoals may be documented in an alternate sectionGoals may be documented in an alternate sectionGoals may be documented in an alternate sectionGoals may be documented in an alternate sectionGoals may be documented in an alternate sectionGoals may be documented in an alternate sectionGoals may be documented in an alternate sectionGoals may be documented in an alternate sectionGoals may be documented in an alternate sectionGoals may be documented in an alternate sectionGoals may be documented in an alternate section INFORMATION SOURCE (unrecogn ized section and content) DATE CREATED AUTHOR 08/08/2021 [facility] DATE CREATED AUTHOR AUTHOR'S ORGANIZ ATION 01/02/2023 [facility] DATE CREATED AUTHOR AUTHOR'S ORGANIZ ATION 11/03/2024 [facility] FOR RECORDS PERTAINING TO PATIENTS WHO ARE OR HAVE BEEN ENROLLED IN A CHEMICAL DEPENDENCY/SUBSTANCEABUSE PROGRAM, SOME INFORMATION MAY BE OMITTED. This clinical summary was aggregated from multiple sources. Caution should be exercised in using it in the provision of clinical care. This summary normalizes information from multiple sources, and as a consequence, information in this document may materially change the coding, format and clinical context of patient data. In addition, data may be omitted in some cases. CLINICAL DECISIONS SHOULD BE BASED ON THE PRIMARY CLINICAL RECORDS. [employer] [facility] provides no warranty or guarantee of the accuracy or completeness of information in this document.
[2024-11-04 07:56] VITALS: BP 138/62; PULSE 70; RESP 18; TEMP 36.7; O2SAT 97
== END 2024-11-04 08:00 | disposition home or self-care (01) ==
PROVIDERS: Emergency Provider Emergency Medicine; PCP Family Medicine; Visit Provider Emergency Medicine
DX: S82.442A Displaced spiral fracture of shaft of left fibula, initial encounter for closed fracture (principal); E78.5 Hyperlipidemia, unspecified; K21.9 Gastro-esophageal reflux disease without esophagitis; Z79.84 Long term (current) use of oral hypoglycemic drugs; F17.210 Nicotine dependence, cigarettes, uncomplicated; W10.9XXA Fall (on) (from) unspecified stairs and steps, initial encounter
CPT/HCPCS: 29515; 73610; 73630; 99283

== ENCOUNTER 2024-11-16 17:24 | Emergency (ER) | payer MEDICARE, SELFPAY ==
[2024-11-16 17:24] VITALS: BP 120/90; PULSE 96; RESP 16; TEMP 36.6; O2SAT 100
[2024-11-16 17:27] VITALS: BMI 34.0
--- NOTE | 2024-11-16 17:54 | ED.VIS.GI ---
HPI HPI - GI History of Present Illness Chief Complaint: Diarrhea Informant: patient and spouse/S.O. Narrative Narrative: History of stage III kidney disease her has 1 kidney. Diarrhea started at 2 PM less than 4 hours ago brown watery proximal 10 episode. She is status post left ORIF of the ankle yesterday followed by Dr. Jack. She was given preop antibiotics with no other antibiotics prior to that. She had an injury a week ago. Denies fever chills or sweats. She does have aero bowel syndrome states more diarrhea she took her Bentyl. They are concerned with her history of CKD with her diarrhea. No heart failure history. No abdominal pain. She had 1 nausea vomiting at home no hematemesis. States just feels queasy. No urinary symptoms. [facility] Medical History Hiatal hernia Chronic gastritis GERD with esophagitis Abdominal pain Abnormal CT scan, gastrointestinal tract Hyperlipidemia Diverticulosis Gastric ulcer Sacroiliitis Tobacco abuse GERD (gastroesophageal reflux disease) Home Medications ?Medication ?Instructions ?Recorded ?Last Taken ?Type omeprazole 20 mg capsule,delayed 20 mg PO DAILY 02/03/19 02/08/19 05:00 History release alendronate 70 mg tablet 70 mg PO QWEEK 06/25/24 Unknown History rosuvastatin 20 mg tablet 20 mg PO QPM 06/25/24 Unknown History valsartan 80 mg tablet 80 mg PO DAILY 06/25/24 Unknown History dicyclomine 20 mg tablet 20 mg PO BID PRN abdominal pain 11/04/24 Unknown History metformin 500 mg tablet 500 mg PO BID 11/04/24 Unknown History ondansetron 4 mg disintegrating 4 mg PO Q6H PRN nausea and 11/04/24 Unknown Rx tablet vomiting #20 tabs oxycodone-acetaminophen 5 mg-325 1 tab PO Q6H PRN pain 3 days #12 11/04/24 Unknown Rx mg tablet (Endocet) tabs diphenoxylate-atropine 2.5 1 tab PO TID PRN diarrhea #20 tabs 11/16/24 Unknown Rx mg-0.025 mg tablet (Lomotil) Allergy/AdvReac Type Severity Reaction Status Date / Time No Known Allergies Allergy Verified 11/16/24 17:25 Family History Father Myocardial infarction Heart disease Colon cancer Mother Cancer duodenal Surgical History History of colonoscopy (~2015) History of esophagogastroduodenoscopy (EGD) (~2008) History of left nephrectomy History of tubal ligation history of lysis of adhesions History of cholecystectomy History of appendectomy Social History Smoking Status: Former smoker ROS ROS ED Constitutional Constitutional ED: Denies chills, fever(s) or sweats ENT ENT ED: Denies sore throat Cardiovascular Cardiovascular: Denies chest pain, leg edema, palpitations or racing heartbeat Respiratory/Chest Respiratory/Chest: Denies cough, dyspnea or dyspnea on exertion Gastrointestinal Gastrointestinal: Reports diarrhea and nausea; Denies abdominal pain or vomiting Genitourinary Genitourinary ED: Denies dysuria, hematuria or urinary frequency Musculoskeletal Musculoskeletal: Denies back pain, extremity pain or neck pain Integumentary Denies rash or wounds Neurologic Neurologic: Denies headache(s), paresthesias or weakness EXAM Physical Exam Const Vital Signs: 11/16/24 17:24 11/16/24 19:11 11/16/24 20:04 Temperature 98 F 98.1 F 98.1 F Temperature Source Temporal Oral Pulse Rate 96 79 70 Respiratory Rate 16 14 17 Blood Pressure 120/90 H 124/77 H 127/66 H Blood Pressure Mean 100 92 86 Pulse Ox 100 95 98 Oxygen Delivery Method Room Air Room Air Positive well nourished and well developed General Appearance ED: well developed and NAD HEENT Reports moist mucous membranes normocephalic and atraumatic Eyes General Eye ED: Yes normal appearance of both eyes Neck full ROM Chest Wall Chest: Negative for tenderness Resp normal respiratory effort and normal air movement Effort and Inspection: symmetric chest movement; Negative for respiratory distress Cardio regular rate, regular rhythm and no murmurs Peripheral Pulses: pulses 2+ throughout GI normal to inspection, nondistended, normoactive bowel sounds and non-tender GI Narrative: Negative Lew's or McBurney's tenderness. Palpation: Negative for guarding or rebound tenderness present Extremity Extremity Narrative: Right lower extremity with BRIEN hose stocking. Left leg: Casting Short leg. No cyanosis of the toes. General Extremety ED: Negative for edema or tenderness General Extremity: Negative for edema Neuro oriented x3 and no sensory deficits noted Sensorium / Orientation: awake and alert MDM MDM MDM Narrative Medical decision making narrative: Interventions / MDM: Differential diagnosis: Dehydration, electrolyte abnormalities, diarrhea Diagnosis considered but do not suspect: Kidney injury however labs are normal. C. difficile however stool C. difficile negative. My EKG interpretation: N/A Imaging independently reviewed and interpreted by myself: N/A External documents reviewed: N/A Test considered but not ordered:N/A ED course: Increasing diarrhea this 4 hours prior arrival she received antibiotics with her surgery. History of irritable bowel with diarrhea. IV established to check labs. Stool studies ordered. IV fluids given. 1939: Stool collected C. difficile results negative. White count 14.9. Creatinine 1.08 with GFR 57 stable from her previous labs. No urinary symptoms for concerns for UTI. No cough or concerns of any pneumonia. Patient started on Lomotil to help with diarrhea C. difficile is negative. She will continue oral fluid for a duration. Outpatient follow-up. All questions were answered. Re-evaluation: stable Disposition discussed with patient/family/significant other: Patient and significant other Case discussed with consulting clinician: N/A This note was generated with [employer] dictation software. It may contain incorrect words, spelling, and punctuation that were not noted in checking the note before signing. Lab Data Attestation: I reviewed the patient's lab results. Labs: Laboratory Results - last 24 hr 11/16/24 19:04 WBC 14.9 H RBC 4.07 L Hgb 11.6 L Hct 36.0 L MCV 88.5 MCH 28.5 MCHC 32.2 RDW Std Deviation 45.0 H RDW Coeff of Citlali 14.1 Plt Count 257 MPV 9.3 Immature Gran % (Auto) 0.400 Neut % (Auto) 80.9 H Lymph % (Auto) 12.9 L [place]ane % (Auto) 5.2 Eos % (Auto) 0.4 Baso % (Auto) 0.2 Absolute Neuts (auto) 12.1 H Absolute Lymphs (auto) 1.92 Nucleated RBC % 0 Sodium 141 Potassium 3.9 Chloride 104 Carbon Dioxide 22.6 Anion Gap 15 BUN 28 H Creatinine 1.08 Estim Creat Clear Calc 52.33 Est GFR (MDRD) Non-Af 57 L BUN/Creatinine Ratio 25.8 H Glucose 110 H Calcium 9.5 Discharge Plan Triage Chief Complaint: Diarrhea ED Provider: Deon Julien Dx/Rx/DC Orders Clinical Impression: Diarrhea, CKD (chronic kidney disease) stage 3, GFR 30-59 ml/min Instructions: CKD Dc, ED Diarrhea, Unknown Cause Prescriptions: New diphenoxylate-atropine [Lomotil] 2.5-0.025 mg tablet 1 tab PO TID PRN (Reason: diarrhea) Qty: 20 0RF No Action omeprazole 20 mg capsule,delayed release(DR/EC) 20 mg PO DAILY alendronate 70 mg tablet 70 mg PO QWEEK valsartan 80 mg tablet 80 mg PO DAILY rosuvastatin 20 mg tablet 20 mg PO QPM metformin 500 mg tablet 500 mg PO BID dicyclomine 20 mg tablet 20 mg PO BID PRN (Reason: abdominal pain) oxycodone-acetaminophen [Endocet] 5-325 mg tablet 1 tab PO Q6H PRN (Reason: pain) 3 Days Qty: 12 0RF ondansetron 4 mg tablet,disintegrating 4 mg PO Q6H PRN (Reason: nausea and vomiting) Qty: 20 0RF Primary Care Provider: Shine Gibson Referrals: Shine Gibson MD [Primary Care Provider] - Activity Restrictions/Additional Instructions: Creatinine 1.08 with GFR 57. C. difficile negative. Stool studies pending. Continue oral fluids for hydration. Use Lomotil as prescribed. Follow-up with your doctor. Print Language: Macedonian Disposition Disposition: Home, Self Care Discharge Date/Time: 11/16/24 20:31
[2024-11-16] MEDS: 0.9% Normal Saline (1000mL) 1,000 ML 1000 ML IV (19:05)
[2024-11-16 19:11] VITALS: BP 124/77; PULSE 79; RESP 14; TEMP 36.7; O2SAT 95
[2024-11-16 19:25] LABS: Hematocrit 36.0 % (37-47); Hemoglobin 11.6 g/dL (12.0-15.0); Immature Granulocytes Count 0.060 X10^3/uL (0.0-0.0); Mean Corp Hgb Conc 32.2 g/dL (32-36); Mean Corpuscular Volume 88.5 fL (81-99); Mean Platelet Vol. 9.3 fl (6.2-12.0); NRBC Flagged by Analyzer 0 % (0-5); Platelet Count 257 K/mm3 (150-450); RBC Distribution Width CV 14.1 % (11.6-14.6); RBC Distribution Width SD 45.0 fl (35.1-43.9); Red Blood Count 4.07 M/mm3 (4.2-5.4); White Blood Count 14.9 K/mm3 (4.4-11.0)
[2024-11-16 19:38] LABS: Anion Gap 15 (5-15); BUN 28 mg/dL (4-19); BUN/Creat Ratio 25.8 RATIO (10-20); Calcium,Total 9.5 mg/dL (7.6-11.0); Carbon Dioxide 22.6 mmol/L (21.0-32.0); Chloride 104 mmol/L (98-108); Estimated Creatinine Clearance 52.33 ml/min (50-250); Glucose 110 mg/dL (70-99); Potassium 3.9 mmol/L (3.3-5.1)
[2024-11-16] MEDS: Diphenoxylate/Atrop 1 Tablet PO (19:59)
[2024-11-16 20:04] VITALS: BP 127/66; PULSE 70; RESP 17; TEMP 36.7; O2SAT 98
== END 2024-11-16 20:31 | disposition home or self-care (01) ==
PROVIDERS: Emergency Provider Emergency Medicine; PCP Family Medicine; Visit Provider Emergency Medicine
DX: R19.7 Diarrhea, unspecified (principal); N18.30 Chronic kidney disease, stage 3 unspecified; Z87.891 Personal history of nicotine dependence; R11.2 Nausea with vomiting, unspecified; E78.5 Hyperlipidemia, unspecified; Z90.5 Acquired absence of kidney; K21.9 Gastro-esophageal reflux disease without esophagitis; K58.0 Irritable bowel syndrome with diarrhea
CPT/HCPCS: 80048; 85025; 87493; 87506; 96361; 96374; 99283; A4216; J2405

== ENCOUNTER → 2025-01-12 | Outpatient (CLI) | payer MEDICARE, SELFPAY ==
[2025-01-12 15:09] LABS: Hematocrit 43.6 % (37-47); Hemoglobin 14.1 g/dL (12.0-15.0); Immature Granulocytes Count 0.050 X10^3/uL (0.0-0.0); Mean Corp Hgb Conc 32.3 g/dL (32-36); Mean Corpuscular Volume 89.0 fL (81-99); Mean Platelet Vol. 9.8 fl (6.2-12.0); NRBC Flagged by Analyzer 0 % (0-5); Platelet Count 301 K/mm3 (150-450); RBC Distribution Width CV 13.8 % (11.6-14.6); RBC Distribution Width SD 45.1 fl (35.1-43.9); Red Blood Count 4.90 M/mm3 (4.2-5.4); White Blood Count 8.4 K/mm3 (4.4-11.0)
[2025-01-12 16:01] LABS: AST(SGOT) 22 U/L (<=31); Alanine Aminotransfer ALT/SGPT 19 U/L (<=34); Albumin, Serum 4.3 g/dL (3.4-4.8); Alkaline Phosphatase 83 U/L (35-104); Anion Gap 12 (5-15); BUN 23 mg/dL (4-19); BUN/Creat Ratio 23.4 RATIO (10-20); Calcium,Total 9.6 mg/dL (7.6-11.0); Carbon Dioxide 24.5 mmol/L (21.0-32.0); Chloride 102 mmol/L (98-108); Cholesterol 161 mg/dL (<=200); Globulin 3.1 g/dL (2.2-4.2); Glucose 104 mg/dL (70-99); Low Density Lipoprotein Calc. 59 mg/dL; Potassium 4.2 mmol/L (3.3-5.1); Triglycerides 184 mg/dL; Very Low Density Lipoprotein 37 mg/dL (5-40); Vitamin D,25 Hydroxy 29.8 ng/mL (30-100); cholesterol:hdl ratio screen 2.47
== END | disposition home or self-care (01) ==
LOC: MFPLAB 12:01
PROVIDERS: PCP Family Medicine; Visit Provider Family Medicine
DX: E78.5 Hyperlipidemia, unspecified (principal); R73.02 Impaired glucose tolerance (oral); E55.9 Vitamin D deficiency, unspecified
CPT/HCPCS: 36415; 80053; 80061; 82306; 83036; 85025

== ENCOUNTER → 2025-02-15 | Outpatient (CLI) | payer MEDICARE, SELFPAY ==
--- NOTE | 2025-02-15 12:17 | US_ITS ---
PROCEDURE: THYROID 02/15/2025 REASON FOR EXAM: NODULE TECHNIQUE: Procedure Code: USTHY Modality: US Procedure: THYROID COMPARISON: April 2022 FINDINGS: Right thyroid lobe size: 5.2 x 2.3 x 2.0 cm Left thyroid lobe size: 4.6 x 2.2 x 1.9 cm Isthmus: 0.3 cm Background parenchymal echotexture is homogeneous. Nodules: What was labeled as right nodules 1 and 2 are not further characterized. These were the smallest nodules. 1 labeled as right nodule 3.. Lobe: Right, Location: Inferior, Size: 0.8 x 0.8 x 0.7 cm, Stability: Stable Composition: Solid or almost completely solid (+2) Echogenicity: Hypoechoic (+2) Margin: Smooth (+0) Shape: Wider than tall (+0) Echogenic Foci: None (+0) TI-RADS: 4 2 labeled as left 1... Lobe: Left, Location: Left upper, Size: 0.9 x 0.8 x 0.7 cm, Stability: Stable Composition: Solid or almost completely solid (+2) Echogenicity: Hyper to Isoechoic (+1) Margin: Smooth (+0) Shape: Wider than tall (+0) Echogenic Foci: None (+0) TI-RADS: 3 3. Labeled as left nodule 2.. Lobe: Left, Location: Mid, Size: 0.8 x 0.7 x 0.5 cm, Stability: Stable Composition: Solid or almost completely solid (+2) Echogenicity: Hypoechoic (+2) Margin: Smooth (+0) Shape: Wider than tall (+0) Echogenic Foci: None (+0) TI-RADS: 4 4. Lobe: Left, Location: Lateral, Size: 0.9 x 0.7 x 0.7 cm, Stability: Stable Composition: Solid or almost completely solid (+2) Echogenicity: Hypoechoic (+2) Margin: Smooth (+0) Shape: Wider than tall (+0) Echogenic Foci: None (+0) TI-RADS: 4 US/Thyroid IMPRESSION: Stable bilateral thyroid nodules. All nodules TI rads 3 or 4, less than 1 cm and therefore do not require fine-ne edle aspiration or follow-up ultrasound. RECOMMENDATION: TR 1 benign (0 points): No fine-needle aspirate or ultrasound follow-up require d. TR 2 not suspicious (1-2 points): No fine-needle aspirate or ultrasound follow up required. TR 3 mildly suspicious (3 points): 1.5 centimeter or greater requires ultrasoun d follow up at 1, 3 and 5 years. 2.5 centimeters or greater requires fine-needle aspirate. TR 4: Moderately suspicious (4-6 points): 1 centimeter greater requires ultraso und follow-up in 1, 2, 3 and 5 years. 1.5 centimeters or greater requires fine-needle aspirate. TR 5 highly suspicious (greater than or equal to 7 points,): 0.5 centimeters or greater requires annual follow up up to 5 years. 1.0 centimeters or greater requires fine-needle aspirate. Fine-needle aspirate no more than 2 nodules. Biopsy up to two highest TI-RADS s cores. Follow-up no more than 4 nodules with highest TI-RADS points score. Based on most suspicious nodule. Nodule size = largest diameter Only evaluate nodule if =>5 mm. Growth > 20% in 2 dimensions = worsening. Reading Location: [place] [id number]
--- OUTSIDE RECORDS SUMMARY | 2025-02-15 14:02 | XMS RPT_ITS | CCD ---
Author Organization [facility] Care Team Providers Care Supervisor Screen Printing Name Role Phone Guille Conde MD Primary Care Provider Dwayne Gibson Unavailable Brian Zaldivar MD Unavailable Zion Patel MD Unavailable Dr. Dwayne Gibson Primary Care Provider Dr. Dwayne Gibson Referring Provider [phone] Dr. Dwayne Gibson Other Provider Dr. Patel Orozco Attending Provider Guille Conde MD Primary Care Provider Dwayne Gibson Unavailable [phone] Brian Zaldivar MD Unavailable Zion Patel MD Unavailable Guille Conde MD Primary Care Provider Dwayne Gibson Unavailable Brian Zaldivar MD Unavailable Zion Patel MD Unavailable Dwayne Gibson MD Unavailable Brian Zaldivar MD Unavailable MERARI TORO Attending Unavailable DWAYNE LEUNG Referring Unavailable GUILLE CONDE Primary Care Unavailable Dr. Dwayne Gibson Primary Care Provider [phone] Dr. Dwayne Gibson Referring Provider MARILYN Spivey Attending Provider [phone] Dr. Dwayne Gibson Primary Care Provider Dr. Dwayne Gibson Referring Provider MARILYN Spivey Attending Provider [phone] Paige BANEGAS, Dr. Dwayne Portillo Primary Care [...] Paige BANEGAS, Dr. Dwayne Portillo Referring Provider [phone] Dr. Alonso Zaldivar DO Emergency Provider [phone] Attending Unavailable FLETCHER AWAN DR Primary Care Unavailable FLETCHER AWAN DR Admitting Unavailable PATTIE ARMIJO PAC Admitting Unavailable PATTIE ARMIJO PAC Attending Unavailable PATTIE ARMIJO PAC Primary Care Unavailable Dr. Alonso Zaldivar DO Attending Provider Dr. Deon Julien DO Emergency Provider [phone] Deon Julien DO Attending Provider Dwayne Gibson Primary Care Unavailable Dwayne Gibson Attending Unavailable Dwayne Gibson Referring Unavailable Dwayne Gibson Primary Care Unavailable Dwayne Gibson Attending Unavailable Dwayne Gibson Referring Unavailable Dwayne Gibson Primary Care Unavailable Dwayne Gibson Attending Unavailable Dwayne Gibson Referring Unavailable SchDwayne mejía Primary Care Unavailable Dwayne Gibson Attending Unavailable [...] Care Unavailable Dwayne Gibson Primary Care Unavailable Deon Julien Attending Unavailable Dwayne Gibson Primary Care Unavailable Odilon Guillaume Attending Unavailable Dwayne Gibson Primary Care Unavailable Alonso Zaldivar Attending Unavailable Allergies Allergy Classification Reported Allergen(s) Allergy Type Date of Onset Reaction(s) Facility (9 sources) Doxycycline; Translations: [DOXYCYCLINE] Drug Allergy 5 Diarrhea [facility] Work Phone: (9 sources) Seasonal allergy; Translations: [SEASONAL ALLERGIES] Allergy to substance 4 Other: See Comments [facility] Medications Current Medications Medication Drug Class(es) Dates Sig (Normalized) Sig (Original) acetaminophen 325 mg / oxyCODONE hydrochloride 5 mg oral tablet (3 sources) Opioid Agonist Start: 11-04-2024 take 1 tablet by mouth every six hours as needed for pain Oxycodone-Acetam inophen (Endocet) 5-325 mg tablet Active 1 {tbl} PO EVERY 6 HOURS as needed for pain 12 3 0 November 04, 2024 Closed fracture of left fibula alendronic acid 70 mg oral tablet (7 sources) Bisphosphonate Start: 06-25-2024 take 1 tablet by mouth every week Alendronate 70 mg tablet Active 70 mg PO EVERY WEEK June 25, 2024 12:00am atropine sulfate 0.025 mg / diphenoxylate hydrochloride 2.5 mg oral tablet (2 sources) Anticholinergic, Cholinergic Muscarinic Antagonist, Antidiarrheal Start: 11-16-2024 Diphenoxylate-At ropine (Lomotil) 2.5-0.025 mg tablet Active 1 {tbl} PO THREE TIMES A DAY as needed for diarrhea 0 November 16, 2024 7:57pm dicyclomine hydrochloride 20 mg oral tablet (4 sources) Anticholinergic Start: 11-04-2024 take 1 tablet by mouth twice daily as needed for pain Dicyclomine 20 mg tablet Active 20 mg PO TWICE A DAY as needed for abdominal pain November 04, 2024 12:00am Start: 07-31-2015 End: 07-15-2021 take 1 capsule by mouth every six hours as needed dicyclomine (BENTYL) 10 mg capsule Take 1 capsule by mouth four times daily as needed. 120 capsule 2 07/31/2015 07/15/2021 Discontinued Comment on above: Take 1 capsule by mo [facility] four times daily as needed. metFORMIN hydrochloride 500 mg oral tablet (3 sources) Biguanide Start: 11-05-19 take 1 tablet by mouth twice daily Metformin 500 mg tablet Active 500 mg PO TWICE A DAY November 04, 2024 12:00am omeprazole 20 mg delayed release oral capsule (20 sources) Proton Pump Inhibitor Start: 02-04-20 take 1 capsule by mouth once daily Omeprazole 20 mg capsule,delayed release(DR/EC) Active 20 mg PO DAILY February 03, 2019 1:00am ondansetron 4 mg disintegrating oral tablet (3 sources) Serotonin-3 Receptor Antagonist Start: 11-05-19 take 1 tablet by mouth every six hours as needed for nausea and vomiting Ondansetron 4 mg tablet,disintegratin g Active 4 mg PO EVERY 6 HOURS as needed for nausea and vomiting 20 0 November 04, 2024 12:00am rosuvastatin calcium 20 mg oral tablet (20 sources) HMG-CoA Reductase Inhibitor Start: 06-26-19 take 1 tablet by mouth once daily in the evening Rosuvastatin 20 mg tablet Active 20 mg PO EVERY EVENING June 25, 2024 12:00am Start: 02-03-2019 End: 06-25-2024 take 1 tablet by mouth at bedtime Rosuvastatin 10 mg tablet Discontinued 10 mg PO AT BEDTIME 30 0 February 03, 2019 1:00am June 25, 2024 10:48am cholesterol valsartan 80 mg oral tablet (7 sources) Angiotensin 2 Receptor Howard Start: 06-25-2024 [...] TABLET PO EVERY 6 HOURS NEEDED 10 January 10, 2019 January 15, 2019 12:09am [id number] 200 actuat albuterol 0.09 mg/actuat metered dose [...] Comment on above: Take 1 capsule by [facility] three times daily as needed. cephalexin 500 mg oral capsule (11 sources) Cephalosporin Antibacterial Start: 04-25-2023 End: 05-02-2023 [...] 1 tablet by anabela th once daily ergocalciferol 1.25 mg oral capsule (7 sources) Provitamin D2 Compound Start: 06-25-2024 End: 11-04-2024 Ergocalciferol (Vitamin D2) 1,250 mcg (50,000 unit) capsule Discontinued 1250 ug PO EVERY WEEK June 25, 2024 12:00am November 04, 2024 6:24am fexofenadine hydrochloride 60 mg oral tablet (1 [...] every 6 hours as needed for Pain. metaxalone 800 mg oral tablet (7 sources) Start: 06-25-2024 End: 11-04-2024 take 1 tablet by mouth three times daily Metaxalone 800 mg tablet Discontinued 800 mg PO THREE TIMES A DAY 21 7 0 June 25, 2024 12:00am November 04, 2024 6:24am montelukast 10 mg oral tablet (1 source) [...] above: take 1 tablet by anabela th 1/2 HR BEFORE BREAKFAST phenazopyridine hydrochloride 100 mg oral tablet (11 sources) Start: 04-25-2023 End: 06-25-2024 take 1 [...] [Other specified diseases of biliary tract] Onset: Chronic Cancer of kidney and renal pelvis (16 sources) Malignant tumor of kidney; Translations: [Malignant neoplasm of unspecified kidney, except renal pelvis] Onset: 9 03-25-2021 Chronic Cancer of kidney and renal pelvis (20 sources) History of malignant neoplasm of kidney; Translations: [Personal history of other malignant neoplasm of kidney] 07-26-2018 Episodic Chronic kidney disease (2 sources) Chronic kidney disease stage 3; Translations: [Stage 3 chronic kidney disease] 11-16-2024 Chronic Chronic kidney disease (3 sources) Chronic kidney disease; Translations: [Chronic kidney disease, stage 3a] Onset: 5 Diseases of mouth; excluding dental (20 sources) Parotitis; Translations: [Acute sialoadenitis] 06-20-2020 Episodic Disorders of lipid metabolism (20 sources) Hyperlipidemia; Translations: [Hyperlipidemia, unspecified] Onset: 5 06-19-2020 Chronic Diverticulosis and diverticulitis (20 sources) Diverticular disease; Translations: [Diverticulosis of intestine, part unspecified, without perforation or abscess without bleeding] 06-19-2020 Chronic E Codes: Fall (3 sources) Fall; Translations: [Unspecified fall, initial encounter] 11-04-2024 Episodic Esophageal disorders (20 sources) Gastroesophageal reflux disease; Translations: [Gastro-esophageal reflux disease without esophagitis] Onset: 6 06-25-2015 Chronic Essential hypertension (1 source) Essential (primary) hypertension; Translations: [Essential (primary) hypertension] Onset: 5 Chronic Fracture of lower limb (3 sources) Closed fracture of fibula; Translations: [Unspecified fracture of shaft of left fibula, initial encounter for closed fracture] 11-04-2024 Episodic Gastritis and duodenitis (20 sources) Chronic gastritis; [...] unspecified] 07-27-2018 Episodic Other connective tissue disease (7 sources) Spasm; Translations: [Other muscle spasm] 06-25-2024 [...] Translations: [Disease of intestine, unspecified] Episodic Other gastrointestinal disorders (2 sources) Diarrhea; Translations: [Diarrhea, unspecified] 11-16-2024 Episodic Other gastrointestinal disorders (1 source) Diarrhea, unspecified; Translations: [Diarrhea, unspecified] Onset: 5 Episodic Other injuries and conditions due to external causes (1 source) Encounter for examination and observation following other accident; Translations: [Encounter for examination and observation following other accident] Onset: 5 Episodic Other liver diseases (8 sources) Steatosis [...] Onset: 9 06-12-2008 Chronic Urinary tract infections (13 sources) Urinary tract infectious disease; Translations: [Urinary tract infection, site not specified] 04-25-2023 Episodic Past or Other Problems Problem Classification Problem Date Documented Da te Episodic/Chronic Gastrointestinal hemorrhage (8 sources) Gastrointestinal hemorrhage; Translations: [...] Test Name Value Interpretation Reference Range Facility CBC W/Diff, Automatedon 12-28 Absolute Lymph 1.98 X10 3/uL Normal 0.83-4.[address] [facility] Comment on above: Order Comment: Order Date: 03/18/24 Order Info: 0184 - CBCD Performed By: #### L 501.5200, L500.4100, L509.1000, L501.9985, L100.0100, L501.2300, L500.4050 #### [facility] [address] [place], [place], [id number] (168) Absolute Neut 5.7 X10 3/uL Normal 2.0-7.[address] [facility] Comment on above: Order Comment: Order Date: 03/18/24 Order Info: 01806-28 - CBCD Performed By: #### L 501.5200, L500.4100, L509.1000, L501.9985, L100.0100, L501.2300, L500.4050 #### [facility] [address] [place], [place], [phone] (455 Basophils/100 WBC (Bld) 0.8 % Normal 0-[address] [facility] Comment on above: Order Comment: Order Date: 03/18/24 Order Info: 0184 - CBCD Performed By: #### L 501.5200, L500.4100, L509.1000, L501.9985, L100.0100, L501.2300, L500.4050 #### [facility] [address] [place], [place], [phone] ([phone] Eosinophils/100 WBC (Bld) 2.4 % Normal 0-[address] [facility] Comment on above: Order Comment: Order Date: 03/18/24 Order Info: 0184-1 - CBCD Performed By: #### L 501.5200, L500.4100, L509.1000, L501.9985, L100.0100, L501.2300, L500.4050 #### [facility] [address] [place], [address] Erythrocyte distribution width (RBC) [Ratio] 13.8 % Normal 11.6-14.[address] [facility] Comment on above: Order Comment: Order Date: 03/18/24 Order Info: 0184- - CBCD Performed By: #### L 501.5200, L500.4100, L509.1000, L501.9985, L100.0100, L501.2300, L500.4050 #### [facility] [address] [place], [place], [phone] Hematocrit (Bld) [Volume fraction] 43.6 % Normal 37-[address] [facility] Comment on above: Order Comment: Order Date: 03/18/24 Order Info: 0184-1 - CBCD Performed By: #### L 501.5200, L500.4100, L509.1000, L501.9985, L100.0100, L501.2300, L500.4050 #### [facility] [address] [place], [place], [phone] Hemoglobin (Bld) [Mass/Vol] 14.1 g/dL Normal 12.0-15.[address] [facility] Comment on above: Order Comment: Order Date: 03/18/24 Order Info: 0184-1 - CBCD Performed By: #### L 501.5200, L500.4100, L509.1000, L501.9985, L100.0100, L501.2300, L500.4050 #### [facility] [address] [place], [place], [phone] IG% 0.600 Normal 0.0-0.[address] [facility] Comment on above: Order Comment: Order Date: 03/18/24 Order Info: 01806-28 - CBCD Result Comment: IG% - Immature Granulocytes (promyelocytes, myelocytes and metamyelocytes) > 1% indicates that a LEFT SHIFT is Present. Performed By: #### L 501.5200, L500.4100, L509.1000, L501.9985, L100.0100, L501.2300, L500.4050 #### [facility] [address] [place], [address] Lymphocytes/100 WBC (Bld) 23.6 % Normal 19-[address] [facility] Comment on above: Order Comment: Order Date: 03/18/24 Order Info: 01806-28 - CBCD Performed By: #### L 501.5200, L500.4100, L509.1000, L501.9985, L100.0100, L501.2300, L500.4050 #### [facility] [address] [place], [address] MCH (RBC) [Entitic mass] 28.8 pg Normal 27.0-32.[address] [facility] Comment on above: Order Comment: Order Date: 03/18/24 Order Info: 01806-28 - CBCD Performed By: #### L 501.5200, L500.4100, L509.1000, L501.9985, L100.0100, L501.2300, L500.4050 #### [facility] [address] [place], [address] MCHC (RBC) [Mass/Vol] 32.3 g/dL Normal 32-36 [facility] Comment on above: Order Comment: Order Date: 03/18/24 Order Info: 01806-28 - CBCD Performed By: #### L 501.5200, L500.4100, L509.1000, L501.9985, L100.0100, L501.2300, L500.4050 #### [facility] [address] [place], [address] MCV (RBC) [Entitic vol] 89.0 fL Normal 81-[address] [facility] Comment on above: Order Comment: Order Date: 03/18/24 Order Info: 0184-1 - CBCD Performed By: #### L 501.5200, L500.4100, L509.1000, L501.9985, L100.0100, L501.2300, L500.4050 #### [facility] [address] [place], [address] Monocytes/100 WBC (Bld) 5.2 % Normal 0-[address] [facility] Comment on above: Order Comment: Order Date: 03/18/24 Order Info: 0184-1 - CBCD Performed By: #### L 501.5200, L500.4100, L509.1000, L501.9985, L100.0100, L501.2300, L500.4050 #### [facility] [address] [place], [address] Neutrophils/100 WBC (Bld) 67.4 % Normal 47-[address] [facility] Comment on above: Order Comment: Order Date: 03/18/24 Order Info: 0184-1 - CBCD Performed By: #### L 501.5200, L500.4100, L509.1000, L501.9985, L100.0100, L501.2300, L500.4050 #### [facility] [address] [place], [address] Nucleated RBC (Bld) [#/Vol] 0 10*3/uL Normal 0-[address] [facility] Comment on above: Order Comment: Order Date: 03/18/24 Order Info: 0184-1 - CBCD Performed By: #### L 501.5200, L500.4100, L509.1000, L501.9985, L100.0100, L501.2300, L500.4050 #### [facility] [address] [place], [address] Platelet mean volume (Bld) [Entitic vol] 9.8 fL Normal 6.2-12.[address] [facility] Comment on above: Order Comment: Order Date: 03/18/24 Order Info: 0184-1 - CBCD Performed By: #### L 501.5200, L500.4100, L509.1000, L501.9985, L100.0100, L501.2300, L500.4050 #### [facility] [address] [place], [address] Platelets (Bld) [#/Vol] 301 10*3/uL Normal 150-[address] [facility] Comment on above: Order Comment: Order Date: 03/18/24 Order Info: 0184- - CBCD Performed By: #### L 501.5200, L500.4100, L509.1000, L501.9985, L100.0100, L501.2300, L500.4050 #### [facility] [address] [place], [address] RBC (Bld) [#/Vol] 4.90 10*6/uL Normal 4.2-5.4 [facility] Comment on above: Order Comment: Order Date: 03/18/24 Order Info: 0184-1 - CBCD Performed By: #### L 501.5200, L500.4100, L509.1000, L501.9985, L100.0100, L501.2300, L500.4050 #### [facility] [address] [place], [address] RDW SD 45.1 fl High 35.1-43.[address] [facility] Comment on above: Order Comment: Order Date: 03/18/24 Order Info: 0184-1 - CBCD Performed By: #### L 501.5200, L500.4100, L509.1000, L501.9985, L100.0100, L501.2300, L500.4050 #### [facility] [address] [place], [address] WBC (Bld) [#/Vol] 8.4 10*3/uL Normal 4.4-11.0 [facility] Comment on above: Order Comment: Order Date: 03/18/24 Order Info: 0184- - CBCD Performed By: #### L 501.5200, L500.4100, L509.1000, L501.9985, L100.0100, L501.2300, L500.4050 #### [facility] [address] [place], [address] Comprehensive Metabolic Prof [facility] 01-12-2025 Albumin [Mass/Vol] 4.3 g/dL Normal 3.4-4.8 [facility] Comment on above: Order Comment: Order Date: 03/18/24 Order Info: 0184 - CBCD Performed By: #### L 501.5200, L500.4100, L509.1000, L501.9985, L100.0100, L501.2300, L500.4050 #### [facility] [address] [place], [address] Albumin/Globulin [Mass ratio] 1.4 {ratio} Normal 0.9-2.[address] [facility] Comment on above: Order Comment: Order Date: 03/18/24 Order Info: 0184- - CBCD Performed By: #### L 501.5200, L500.4100, L509.1000, L501.9985, L100.0100, L501.2300, L500.4050 #### [facility] [address] [place], [address] ALK PHOS 83 U/L Normal 35-[address] [facility] Comment on above: Order Comment: Order Date: 03/18/24 Order Info: 0184- - CBCD Performed By: #### L 501.5200, L500.4100, L509.1000, L501.9985, L100.0100, L501.2300, L500.4050 #### [facility] [address] [place], [address] ALT [Catalytic activity/Vol] 19 U/L Normal <=[address] [facility] Comment on above: Order Comment: Order Date: 03/18/24 Order Info: 018- - CBCD Performed By: #### L 501.5200, L500.4100, L509.1000, L501.9985, L100.0100, L501.2300, L500.4050 #### [facility] [address] [place], [place], [id number] AST [Catalytic activity/Vol] 22 U/L Normal <=[address] [facility] Comment on above: Order Comment: Order Date: 03/18/24 Order Info: 01806-28 - CBCD Performed By: #### L 501.5200, L500.4100, L509.1000, L501.9985, L100.0100, L501.2300, L500.4050 #### [facility] [address] [place], [place], [id number] Bilirubin [Mass/Vol] 0.31 mg/dL Normal 0.00-1.30 [facility] Comment on above: Order Comment: Order Date: 03/18/24 Order Info: 01806-28 - CBCD Performed By: #### L 501.5200, L500.4100, L509.1000, L501.9985, L100.0100, L501.2300, L500.4050 #### [facility] [address] [place], [place], [id number] BUN/CRE 23.4 RATIO High 10-[address] [facility] Comment on above: Order Comment: Order Date: 03/18/24 Order Info: 018- - CBCD Performed By: #### L 501.5200, L500.4100, L509.1000, L501.9985, L100.0100, L501.2300, L500.4050 #### [facility] [address] [place], [address] Calcium [Mass/Vol] 9.6 mg/dL Normal 7.6-11.0 [facility] Comment on above: Order Comment: Order Date: 03/18/24 Order Info: 01806-28 - CBCD Performed By: #### L 501.5200, L500.4100, L509.1000, L501.9985, L100.0100, L501.2300, L500.4050 #### [facility] [address] [place], [address] Chloride [Moles/Vol] 102 mmol/L Normal 98-108 [facility] Comment on above: Order Comment: Order Date: 03/18/24 Order Info: 01806-28 - CBCD Performed By: #### L 501.5200, L500.4100, L509.1000, L501.9985, L100.0100, L501.2300, L500.4050 #### [facility] [address] [place], [address] CO2 [Moles/Vol] 24.5 mmol/L Normal 21.0-32.[address] [facility] Comment on above: Order Comment: Order Date: 03/18/24 Order Info: 01806-28 - CBCD Performed By: #### L 501.5200, L500.4100, L509.1000, L501.9985, L100.0100, L501.2300, L500.4050 #### [facility] [address] [place], [address] Creatinine [Mass/Vol] 0.97 mg/dL Normal 0.70-1.20 [facility] Comment on above: Order Comment: Order Date: 03/18/24 Order Info: 01806-28 - CBCD Performed By: #### L 501.5200, L500.4100, L509.1000, L501.9985, L100.0100, L501.2300, L500.4050 #### [facility] [address] [place], [address] GAP 12 Normal 5-[address] [facility] Comment on above: Order Comment: Order Date: 03/18/24 Order Info: 0184- - CBCD Performed By: #### L 501.5200, L500.4100, L509.1000, L501.9985, L100.0100, L501.2300, L500.4050 #### [facility] [address] [place], [address] GFR/1.73 sq M.predicted among non-blacks MDRD (S/P/Bld) [Vol rate/Area] 65 mL/min/{1.73_m2} Normal >[address] [facility] Comment on above: Order Comment: Order Date: 03/18/24 Order Info: 0184 - CBCD Result Comment: mL/m in/1.73m2 CKD-EPI Creatinine Equation (2020) Performed By: #### L 501.5200, L500.4100, L509.1000, L501.9985, L100.0100, L501.2300, L500.4050 #### [facility] [address] [place], [address] Globulin (S) [Mass/Vol] 3.1 g/dL Normal 2.2-4.[address] [facility] Comment on above: Order Comment: Order Date: 03/18/24 Order Info: 0184-1 - CBCD Performed By: #### L 501.5200, L500.4100, L509.1000, L501.9985, L100.0100, L501.2300, L500.4050 #### [facility] [address] [place], [address] Glucose [Mass/Vol] 104 mg/dL High 70-99 [facility] Comment on above: Order Comment: Order Date: 03/18/24 Order Info: 0184 - CBCD Performed By: #### L 501.5200, L500.4100, L509.1000, L501.9985, L100.0100, L501.2300, L500.4050 #### [facility] [address] [place], [address] Potassium [Moles/Vol] 4.2 mmol/L Normal 3.3-5.1 [facility] Comment on above: Order Comment: Order Date: 03/18/24 Order Info: 01806-28 - CBCD Performed By: #### L 501.5200, L500.4100, L509.1000, L501.9985, L100.0100, L501.2300, L500.4050 #### [facility] [address] [place], [address] Sodium [Moles/Vol] 139 mmol/L Normal 133-145 [facility] Comment on above: Order Comment: Order Date: 03/18/24 Order Info: 01806-28 - CBCD Performed By: #### L 501.5200, L500.4100, L509.1000, L501.9985, L100.0100, L501.2300, L500.4050 #### [facility] [address] [place], [address] T PROT 7.4 g/dL Normal 5.9-8.[address] [facility] Comment on above: Order Comment: Order Date: 03/18/24 Order Info: 018- - CBCD Performed By: #### L 501.5200, L500.4100, L509.1000, L501.9985, L100.0100, L501.2300, L500.4050 #### [facility] [address] [place], [address] Urea nitrogen [Mass/Vol] 23 mg/dL High 4-[address] [facility] Comment on above: Order Comment: Order Date: 03/18/24 Order Info: 0184- - CBCD Performed By: #### L 501.5200, L500.4100, L509.1000, L501.9985, L100.0100, L501.2300, L500.4050 #### [facility] [address] [place], [place], [address] Hemoglobin A1con 01-12-2025 HbA1c (Bld) [Mass fraction] 5.8 % High <=5.[address] [facility] Comment on above: Order Comment: Order Date: 03/18/24 Order Info: 018- - CBCD Result Comment: Norm al < 5.7 % Prediabetic 5.7 - 6.4 % Diabetic >or= 6.5 % Please note range changes. Performed By: #### L 501.5200, L500.4100, L509.1000, L501.9985, L100.0100, L501.2300, L500.4050 #### [facility] [address] [place], [place], [id number] Lipid Profileon 01-12-2025 CHOL:HDL 2.[address] [facility] Comment on above: Order Comment: Order Date: 03/18/24 Order Info: 0184 - CBCD Performed By: #### L 501.5200, L500.4100, L509.1000, L501.9985, L100.0100, L501.2300, L500.4050 #### [facility] [address] [place], [address] Cholesterol [Mass/Vol] 161 mg/dL Normal <=200 [facility] Comment on above: Order Comment: Order Date: 03/18/24 Order Info: 0184- - CBCD Result Comment: Chol esterol level, Desirable <200 mg/dL Borderline high cholesterol 200-239 mg/dL High cholesterol >=240 mg/dL Recommendations of the NCEP Adult Treatment Panel for the following risk-cutoff thresholds for the [place] population. Performed By: #### L 501.5200, L500.4100, L509.1000, L501.9985, L100.0100, L501.2300, L500.4050 #### [facility] [address] [place], [address] Cholesterol in HDL [Mass/Vol] 65 mg/dL Normal [facility] Comment on above: Order Comment: Order Date: 03/18/24 Order Info: 0184-1 - CBCD Result Comment: Viviana onal Cholesterol Education Program (NCEP) guidelines: <40 mg/dL: Low HDL-cholesterol (major risk factor for CHD) >= 60 mg/dL: High HDL-cholesterol (negative risk factor for CHD) HDL-cholesterol is affected by a number of factors, e.g. smoking, exercise, hormones, sex and age. Performed By: #### L 501.5200, L500.4100, L509.1000, L501.9985, L100.0100, L501.2300, L500.4050 #### [facility] [address] [place], [address] Cholesterol in LDL [Mass/Vol] 59 mg/dL Normal [facility] Comment on above: Order Comment: Order Date: 03/18/24 Order Info: 0184- - CBCD Result Comment: Bord ycrnls=950-567 mg/dL Higher Fypo=734 mg/dL or greater Friedwald Equation for LDL-C Performed By: #### L 501.5200, L500.4100, L509.1000, L501.9985, L100.0100, L501.2300, L500.4050 #### [facility] [address] [place], [address] Cholesterol in VLDL [Mass/Vol] 37 mg/dL Normal 5-[address] [facility] Comment on above: Order Comment: Order Date: 03/18/24 Order Info: 0184-1 - CBCD Performed By: #### L 501.5200, L500.4100, L509.1000, L501.9985, L100.0100, L501.2300, L500.4050 #### [facility] [address] [place], [place], [address] Triglyceride [Mass/Vol] 184 mg/dL Normal [facility] Comment on above: Order Comment: Order Date: 03/18/24 Order Info: 0184-1 - CBCD Result Comment: The drugs N-Acetylcysteine and Metamizole may falsely depress this assay. Normal range: <150 mg/dL Borderline High: 150-199 mg/dL High: 200-499 mg/dL Very High: >500 mg/dL Performed By: #### L 501.5200, L500.4100, L509.1000, L501.9985, L100.0100, L501.2300, L500.4050 #### [facility] [address] [facility] [place], [place], [id number] Vitamin D,25 Hydroxyon 01-12 Vitamin D 25-OH 29.8 ng/mL Low 30-[address] [facility] Comment on above: Order Comment: Order Date: 09/16/24 Order Info: [id number] - CMP Order Info: [id number] - LIPID Result Comment: Dimple min D Status Deficiency: <20 ng/mL (50nmol/L) Insufficiency: 20-30 ng/mL (50-75 nmol/L) Sufficiency: 30-100 ng/mL (75-250 nmol/L) Toxicity: >100 ng/mL (>250 nmol/L) Performed By: #### L 506.1001 #### [facility] [address] [place], [place], [id number] ENTERIC PATHOGEN PANEL STOOL on 11-17-2024 EP PANEL Is the patient recei ving laxatives? N Above criteria not met but test indicated Y New/unexplained onset of 3 or more stools in past 24 hrs? Y Normal Reference Range = Not Detected Nucleic acid amplification test method Not detected for Campylobacter group, Salmonella species, Shigella species, Vibrio Group, Yersinia enterocolitica, EHEC (Shiga Toxin 1, Shiga Toxin 2), Norovirus Gl/Gll, and Rotavirus A. Other common stool pathogens are not detected on this panel include: Aeromonas/Plesiomonas or parasites. Order testing for these organisms separately if suspected. This is an amplified DNA test which makes it both specific and sensitive. CAMPYLOBACTER Not Detected Norovirus Not Detected Rotavirus Not Detected Salmonella Not Detected Shiga Toxin Not Detected Shigella sp. Not Detected VIBRIO Not Detected Yersinia Not Detected Normal [facility] Comment on above: Performed By: #### L 501.5200, L500.4100, L509.1000, L501.9985, L100.0100, L501.2300, L500.4050 #### [facility] [address] [place], [address] Absolute lymphocyte countOrd ered By: Deon Julien on 11-16-2024 Lymphocytes Auto (Unsp spec) [#/Vol] 1.92 10*3/uL 0.83-4.[address] [facility] Absolute neutrophil countOrd ered By: Deon Le on 11-16-2024 Neutrophils (Bld) [#/Vol] 12.1 10*3/uL High 2.0-7.[address] [facility] Anion gap in Serum or Plasma Ordered By: Deon Julien on 11-16-2024 Anion gap [Moles/Vol] 15 mmol/L 5-15 [facility] Automated lymphocyte count a s percentage of total leukocytesOrdered By: Deon Julien on 11-16-2024 Lymphocytes/100 WBC Auto (Unsp spec) 12.9 % Low 19-[address] [facility] BUN/creatinine ratioOrdered By: Deon Julien on 11-16-2024 Urea nitrogen/Creatinine [Mass ratio] 25.8 mg/mg High 01-[address] [facility] Basic Metabolic Profile (BMP )on 11-16-2024 BUN/CRE 25.8 RATIO High [facility] Comment on above: Performed By: #### L 506.1001 #### [facility] [address] [place], [address] Calcium [Mass/Vol] 9.5 mg/dL Normal 7.6-11.0 [facility] Comment on above: Performed By: #### L 506.1001 #### [facility] [address] [place], [address] Chloride [Moles/Vol] 104 mmol/L Normal 98-108 [facility] Comment on above: Performed By: #### L 506.1001 #### [facility] [address] [place], [address] CO2 [Moles/Vol] 22.6 mmol/L Normal 21.0-32.[address] [facility] Comment on above: Performed By: #### L 506.1001 #### [facility] [address] [place], [address] Creatinine [Mass/Vol] 1.08 mg/dL Normal 0.70-1.20 [facility] Comment on above: Performed By: #### L 506.1001 #### [facility] [address] [place], [address] ECRCL 52.33 ml/min Normal 50-[address] [facility] Comment on above: Performed By: #### L 506.1001 #### [facility] [address] [place], [address] GAP 15 Normal 5-[address] [facility] Comment on above: Performed By: #### L 506.1001 #### [facility] [address] [place], [address] GFR/1.73 sq M.predicted among non-blacks MDRD (S/P/Bld) [Vol rate/Area] 57 mL/min/{1.73_m2} Low >[address] [facility] Comment on above: Result Comment: mL/m in/1.73m2 CKD-EPI Creatinine Equation (2020) Performed By: #### L 506.1001 #### [facility] [address] [place], [address] Glucose [Mass/Vol] 110 mg/dL High 70-99 [facility] Comment on above: Performed By: #### L 506.1001 #### [facility] [address] [place], [address] Potassium [Moles/Vol] 3.9 mmol/L Normal 3.3-5.1 [facility] Comment on above: Performed By: #### L 506.1001 #### [facility] [address] [place], [address] Sodium [Moles/Vol] 141 mmol/L Normal 133-145 [facility] Comment on above: Performed By: #### L 506.1001 #### [facility] [address] [place], [address] Urea nitrogen [Mass/Vol] 28 mg/dL High 4-[address] [facility] Comment on above: Performed By: #### L 506.1001 #### [facility] [address] [place], [address] Basophil percentageOrdered B y: Deon Oseguera 11-16-2024 Basophils/100 WBC (Bld) 0.2 % 0-[address] [facility] CBC W/Diff, Automatedon - 0-2024 Absolute Lymph 1.92 X10 3/uL Normal 0.83-4.[address] [facility] Comment on above: Performed By: #### L 506.1001 #### [facility] [address] [place], [address] Absolute Neut 12.1 X10 3/uL High 2.0-7.[address] [facility] Comment on above: Performed By: #### L 506.1001 #### [facility] [address] [place], [address] Basophils/100 WBC (Bld) 0.2 % Normal 0-[address] [facility] Comment on above: Performed By: #### L 506.1001 #### [facility] [address] [place], [address] Eosinophils/100 WBC (Bld) 0.4 % Normal 0-[address] [facility] Comment on above: Performed By: #### L 506.1001 #### [facility] [address] [place], [address] Erythrocyte distribution width (RBC) [Ratio] 14.1 % Normal 11.6-14.[address] [facility] Comment on above: Performed By: #### L 506.1001 #### [facility] [address] [place], [address] Hematocrit (Bld) [Volume fraction] 36.0 % Low 37-[address] [facility] Comment on above: Performed By: #### L 506.1001 #### [facility] [address] [place], [address] Hemoglobin (Bld) [Mass/Vol] 11.6 g/dL Low 12.0-15.[address] [facility] Comment on above: Performed By: #### L 506.1001 #### [facility] [address] [place], [address] IG% 0.400 Normal 0.0-0.[address] [facility] Comment on above: Result Comment: IG% - Immature Granulocytes (promyelocytes, myelocytes and metamyelocytes) > 1% indicates that a LEFT SHIFT is Present. Performed By: #### L 506.1001 #### [facility] [address] [place], [address] Lymphocytes/100 WBC (Bld) 12.9 % Low 19-[address] [facility] Comment on above: Performed By: #### L 506.1001 #### [facility] [address] [place], [address] MCH (RBC) [Entitic mass] 28.5 pg Normal 27.0-32.[address] [facility] Comment on above: Performed By: #### L 506.1001 #### [facility] [address] [place], [address] MCHC (RBC) [Mass/Vol] 32.2 g/dL Normal 32-36 [facility] Comment on above: Performed By: #### L 506.1001 #### [facility] [address] [place], [address] MCV (RBC) [Entitic vol] 88.5 fL Normal 81-[address] [facility] Comment on above: Performed By: #### L 506.1001 #### [facility] [address] [place], [address] Monocytes/100 WBC (Bld) 5.2 % Normal 0-[address] [facility] Comment on above: Performed By: #### L 506.1001 #### [facility] [address] [place], [address] Neutrophils/100 WBC (Bld) 80.9 % High 47-[address] [facility] Comment on above: Performed By: #### L 506.1001 #### [facility] [address] [place], [address] Nucleated RBC (Bld) [#/Vol] 0 10*3/uL Normal 0-[address] [facility] Comment on above: Performed By: #### L 506.1001 #### [facility] [address] [place], [address] Platelet mean volume (Bld) [Entitic vol] 9.3 fL Normal 6.2-12.[address] [facility] Comment on above: Performed By: #### L 506.1001 #### [facility] [address] [place], [address] Platelets (Bld) [#/Vol] 257 10*3/uL Normal 150-[address] [facility] Comment on above: Performed By: #### L 506.1001 #### [facility] [address] [place], [address] RBC (Bld) [#/Vol] 4.07 10*6/uL Low 4.2-5.4 [facility] Comment on above: Performed By: #### L 506.1001 #### [facility] [address] [place], [address] RDW SD 45.0 fl High 35.1-43.[address] [facility] Comment on above: Performed By: #### L 506.1001 #### [facility] [address] [place], [address] WBC (Bld) [#/Vol] 14.9 10*3/uL High 4.4-11.0 [facility] Comment on above: Performed By: #### L 506.1001 #### [facility] [address] [place], [address] CDIFF (PCR)on 11-16-2024 CDIFF Is the patient recei ving laxatives? N Above criteria not met but test indicated Y New/unexplained onset of 3 or more stools in past 24 hrs? Y Pending 027 027 NAP1-B1 Presumptive Negative *for epidemiolologic???use C. Diff PCR Negative- No toxigenic C. Diff Detected Normal [facility] Comment on above: Performed By: #### L 501.5200, L500.4100, L509.1000, L501.9985, L100.0100, L501.2300, L500.4050 #### [facility] [address] [place], [address] Carbon dioxide, total [Moles /volume] in Central venous bloodOrdered By: Deon Julien on 11-16-2024 CO2 [Moles/Vol] 22.6 mmol/L 21.0-32.[address] [facility] Chloride assayOrdered By: Sanjay Julien on 11-16-2024 Chloride [Moles/Vol] 104 mmol/L 98-108 [facility] Clostridium difficile detect ion by polymerase chain reactionOrdered By: Deon Julien on 11-16-2024 C. difficile DNA BENITO+probe Ql (Unsp spec) [facility] Emergency Department Summary on 11-16-2024 Emergency Department Summary [facility] Medical Records Department [address] [place] [address] Emergency Department Summary 11/16/24 MR#: [id number] Acct: [id number] Name: ЕКАТЕРИНА BA Rep #: [id number] : 1960 64 From: Deon Mello PCP: Dr. Dwayne Gibson MD Status:DEP ER Location: ED HPI HPI - GI History of Present Illness Chief Complaint: Diarrhea Informant: patient and spouse/S.O. Narrative Narrative: History of stage III kidney disease her has 1 kidney. Diarrhea started at 2 PM less than 4 hours ago brown watery proximal 10 episode. She is status post left ORIF of the ankle yesterday followed by Dr. Awan. She was given preop antibiotics with no other antibiotics prior to that. She had an injury a week ago. Denies fever chills or sweats. She does have aero bowel syndrome states more diarrhea she took her Bentyl. They are concerned with her history of CKD with her diarrhea. No heart failure history. No abdominal pain. She had 1 nausea vomiting at home no hematemesis. States just feels queasy. No urinary symptoms. [facility] Medical History Hiatal hernia Chronic gastritis GERD with esophagitis Abdominal pain Abnormal CT scan, gastrointestinal tract Hyperlipidemia Diverticulosis Gastric ulcer Sacroiliitis Tobacco abuse GERD (gastroesophageal reflux disease) Home Medications ???Medication ???Instructions ???Recorded ???Last Taken ???Type omeprazole 20 mg capsule,delayed 20 mg PO DAILY 02/03/19 02/08/19 0 5:00 History release alendronate 70 mg tablet 70 mg PO QWEEK 06/25/24 Unknown Hi story rosuvastatin 20 mg tablet 20 mg PO QPM 06/25/24 Unknown Hist ory valsartan 80 mg tablet 80 mg PO DAILY 06/25/24 Unknown Hi story dicyclomine 20 mg tablet 20 mg PO BID PRN abdominal pain Unknown History metformin 500 mg tablet 500 mg PO BID 11/04/24 Unknown His tory ondansetron 4 mg disintegrating 4 mg PO Q6H PRN nausea and 5 Unknown Rx tablet vomiting #20 tabs oxycodone-acetaminophen 5 mg-325 1 tab PO Q6H PRN pain 3 days #12 0 11/04/24 Unknown Rx mg tablet (Endocet) tabs diphenoxylate-atropine 2.5 1 tab PO TID PRN diarrhea #20 tabs 11/16/24 Unknown Rx mg-0.025 mg tablet (Lomotil) Allergy/AdvReac Type Severity Reaction Status Date / Time No Known Allergies Allergy Verified 11/16/24 17:25 Family History Father Myocardial infarction Heart disease Colon cancer Mother Cancer duodenal Surgical History History of colonoscopy ( 2015) History of esophagogastroduodenoscopy (EGD) ( 2008) History of left nephrectomy History of tubal ligation history of lysis of adhesions History of cholecystectomy History of appendectomy Social History Smoking Status: Former smoker ROS ROS ED Constitutional Constitutional ED: Denies chills, fever(s) or sweats ENT ENT ED: Denies sore throat Cardiovascular Cardiovascular: Denies chest pain, leg edema, palpitations or racing heartbeat Respiratory/Chest Respiratory/Chest: Denies cough, dyspnea or dyspnea on exertion Gastrointestinal Gastrointestinal: Reports diarrhea and nausea; Denies abdominal pain or vomiting Genitourinary Genitourinary ED: Denies dysuria, hematuria or urinary frequency Musculoskeletal Musculoskeletal: Denies back pain, extremity pain or neck pain Integumentary Denies rash or wounds Neurologic Neurologic: Denies headache(s), paresthesias or weakness EXAM Physical Exam Const Vital Signs: 11/16/24 17:24 11/16/24 19:11 11/16/24 20:04 Temperature 98 F 98.1 F 98.1 F Temperature Source Temporal Oral Pulse Rate 96 79 70 Respiratory Rate 16 14 17 Blood Pressure 120/90 H 124/77 H 127/66 H Blood Pressure Mean 100 92 86 Pulse Ox 100 95 98 Oxygen Delivery Method Room Air Room Air Positive well nourished and well developed General Appearance ED: well developed and NAD HEENT Reports moist mucous membranes normocephalic and atraumatic Eyes General Eye ED: Yes normal appearance of both eyes Neck full ROM Chest Wall Chest: Negative for tenderness Resp normal respiratory effort and normal air movement Effort and Inspection: symmetric chest movement; Negative for respiratory distress Cardio regular rate, regular rhythm and no murmurs Peripheral Pulses: pulses 2+ throughout GI normal to inspection, nondistended, normoactive bowel sounds and non-tender GI Narrative: Negative Lew's or McBurney's tenderness. Palpation: Negative for guarding or rebound tenderness present Extremity Extremity Narrative: Right lower extremity with BRIEN hose stocking. Left leg: Casting Sh (more content not included)... Normal [facility] Eosinophil percentageOrdered By: Deon Julien on 11-16-2024 Eosinophils/100 WBC (Bld) 0.4 % 0-[address] [facility] Erythrocyte distribution wid th ratioOrdered By: Deon Julien on 11-16-2024 Erythrocyte distribution width (RBC) [Ratio] 14.1 % 11.6-14.[address] [facility] Erythrocyte distribution wid th standard deviationOrdered By: Deon Julien on 11-16-2024 Erythrocyte distribution width (RBC) [Ratio] 45.0 fl High 35.1-43.[address] [facility] Glomerular filtration rate ( GFR) estimation/1.73 sq m using serum, plasma, or whole bOrdered By: Deon Julien on 11-16-2024 GFR/1.73 sq M.predicted among non-blacks MDRD (S/P/Bld) [Vol rate/Area] 57 mL/min/{1.73_m2} Low >[address] [facility] Comment on above: mL/min/1.73m2 CKD-EP I Creatinine Equation (2020) Hematocrit Auto (Bld) [Volum e fraction]Ordered By: Deon Julien on 11-16-2024 Hematocrit (Bld) [Volume fraction] 36.0 % Low 37-[address] [facility] Hemoglobin measurementOrdere d By: Deon Julien on 11-16-2024 Hemoglobin (Bld) [Mass/Vol] 11.6 g/dL Low 12.0-15.[address] [facility] Immature granulocytes/100 WB C Auto (Bld)Ordered By: Deon Julien on 11-16-2024 Immature granulocytes/100 WBC (Bld) 0.400 % 0.0-0.[address] [facility] Comment on above: IG% - Immature Granu locytes (promyelocytes, myelocytes and metamyelocytes) > 1% indicates that a LEFT SHIFT is Present. MCV (mean corpuscular volume ) determinationOrdered By: Deon Julien on 11-16-2024 MCV (RBC) [Entitic vol] 88.5 fL 81-[address] [facility] Mean corpuscular hemoglobin (MCH) determinationOrdered By: Deon Julien on 11-16-2024 MCH (RBC) [Entitic mass] 28.5 pg 27.0-32.[address] [facility] Mean corpuscular hemoglobin concentration (MCHC) determinationOrdered By: Deon Julien on 11-16-2024 MCHC (RBC) [Mass/Vol] 32.2 g/dL 32-36 [facility] Mean platelet volume determi nationOrdered By: Deon Julien on 11-16-2024 Platelet mean volume (Bld) [Entitic vol] 9.3 fL 6.2-12.[address] [facility] Monocyte percentageOrdered B y: Deon Julien on 11-16-2024 Monocytes/100 WBC (Bld) 5.2 % 0-[address] [facility] Neutrophil percentageOrdered By: Deon Le on 11-16-2024 Neutrophils/100 WBC (Bld) 80.9 % High 47-[address] [facility] Nucleated red blood cell per centageOrdered By: Deon Julien on 11-16-2024 Nucleated RBC/100 WBC (Bld) [Ratio] 0 % 0-[address] [facility] OPERATIVE PROCEDURESon 11-16 OPERATIVE PROCEDURES [facility] OPERATIVE REPORT NAME ACCOUNT SEX AGE ADMIT DISCHARGE PT MED. RECORD# NUMBER DATE DATE TYPE ЕКАТЕРИНА BA [id number] F 64 11/15/24 11/15/24 2 E [id number] ROOM: [facility] DATE OF : 1960 DICTATING PHYSICIAN: Fletcher Awan DATE OF SURGERY: November 15, 2024 SURGEON: Fletcher Awan MD TELECOMMUNICATIONS SPECIALIST: Miriam Washington PA-C ANESTHESIOLOGIST: Carlos Eduardo Noel CRNA ANESTHETIC: General, popliteal nerve block. PREOPERATIVE DIAGNOSIS: Left ankle displaced distal fibula fracture with syndesmosis disruption and deltoid ligament tear. POSTOPERATIVE DIAGNOSIS: Left ankle displaced distal fibula fracture with syndesmosis disruption and deltoid ligament tear. OPERATION PERFORMED: Left ankle open reduction/internal fixation of distal fibula fracture with open reduction/internal fixation of syndesmosis disruption. COMPLICATIONS: None. ESTIMATED BLOOD LOSS: Minimal. SPECIAL MEDICATIONS: Ancef 2 grams. INDICATIONS: The patient is a 64-year-old female who broke her left ankle recently. X-rays showed findings consistent with a Davenport C fracture as well as a syndesmosis disruption with widening of the medial joint space on stress views. She wished to have surgery. Appropriate informed consent was obtained and signed. FINDINGS: Findings showed instability of the mortise, medial joint space as well as fibula fracture. She underwent open reduction/internal fixation using an Arthrex FibuLock nail 3 mm x 180 mm for her left ankle. She also underwent 2 syndesmosis TightRope XP implants and also 2 distal locking screws, 3 x 16 mm. Also a cap screw was placed in the distal nail. This stabilized her ankle nicely. This was noted clinically and radiographically, and with testing of the syndesmosis it was stable. She underwent Page 1 of 3 ЕКАТЕРИНА BA Operative Report ЕКАТЕРИНА BA : 1960 standard wound closure followed by a short-leg cast. assistant golf professional/physician wardrobe assistant helped throughout the entire procedure. She helped with patient positioning, holding of limbs, and holding of retractors. She helped with open reduction of the fracture with internal fixation with the Arthrex nail, screw placement, TightRope placement, and maintenance of reduction during TightRope fixation. She helped with wound closure, cast application, and patient transfer. Without the surgical instruments inspector and her expertise, the surgical outcome could have been less optimal, and the surgical time would have been certainly increased. DESCRIPTION OF OPERATION: The patient was taken to the operating room and transferred to the OR table. She was given a general anesthetic. She had previously been given a popliteal nerve block. Appropriate time-out was performed. Ancef 2 grams was given IV preoperatively. The tourniquet was not utilized. The right lower extremity had BRIEN hose and an SCD on throughout. The right lower extremity was carefully padded to the bed and taped. The left lower extremity was positioned for AP and lateral fluoroscopic images. This was confirmed. A stress test was done to confirm severe instability at the ankle. Once this was done, her left lower extremity was prepped, padded and draped in the usual orthopedic sterile fashion for the procedure. X-rays helped map out our bony anatomy. We made an incision distal to the tip of the fibula through skin and subcutaneous tissue. Blunt dissection took us down to the tip of the fibula. We also made a longitudinal incision over the fracture site. Careful dissection brought us down to bone. With the help of the wardrobe assistant holding the retractors, a reduction clamp was placed along the fibula, and the fibula was reduced based on AP, lateral and oblique fluoroscopic images. At this point, the guide pin was placed at the tip of the fibula into the intramedullary canal of the fibula, across the fracture site, and into the proximal fibula. Once that was done, the distal reaming was done, then the proximal reaming was done, and then the nail was placed. Once the Arthrex nail was placed, we confirmed its position with the outrigger device. At this point, it was then stabilized to the bone with the guide pin. We then deployed the talons at the proximal portion of the nail, and that was confirmed. We then placed our two distal locking screws through the nail to the appropriate depth and down onto the bone. Once this was done, we tested the syndesmosis and found medial joint space widening beyond normal. At this point, we held the ankle reduced with the help of the wardrobe assistant and the scrub and then drilled for the TightRope device with the outrigger device. Once this was drilled, the outrigger device was then removed. The TightRope devices were placed under standard technique while the wardrobe assistant and the scrub helped hold the mortise well positioned with the ankle dorsiflexed, inverted, and with appropriate med (more content not included)... Normal [facility] Platelet countOrdered By: Sanjya Julien on 11-16-2024 Platelets (Bld) [#/Vol] 257 10*3/uL 150-[address] [facility] Potassium measurement (mass/ volume)Ordered By: Deon Julien on 11-16-2024 Potassium (Unsp spec) [Mass/Vol] 3.9 mmol/L 3.3-5.[address] [facility] RBC Auto (Bld) [#/Vol]Ordere d By: Deon Julien on 11-16-2024 RBC (Bld) [#/Vol] 4.07 10*6/uL Low 4.2-5.4 [facility] Serum creatinine measurement (mass/volume)Ordered By: Deon Julien on 11-16-2024 Creatinine [Mass/Vol] 1.08 mg/dL 0.70-1.20 [facility] Serum glucose measurement (m ass/volume)Ordered By: Deon Julien on 11-16-2024 Glucose [Mass/Vol] 110 mg/dL High 70-99 [facility] Serum or plasma calcium julee urement (mass/volume)Ordered By: Deon Julien on 11-16-2024 Calcium [Mass/Vol] 9.5 mg/dL 7.6-11.0 [facility] Serum or plasma urea nitroge n measurement (mass/volume)Ordered By: Deon Julien on 11-16-2024 Urea nitrogen [Mass/Vol] 28 mg/dL High 4-[address] [facility] Sodium levelOrdered By: Deon Julien on 11-16-2024 Sodium [Moles/Vol] 141 mmol/L 133-145 [facility] White blood cell (WBC) count Ordered By: Deon Julien on 11-16-2024 WBC (Bld) [#/Vol] 14.9 10*3/uL High 4.4-11.0 [facility] C-ARM USAGE 1 HOURon C-ARM USAGE 1 HOUR [place] [address] Patient: ЕКАТЕРИНА BA Phone#: : 1960 Age: 64 Gender: F Pt. Type: Out Account: [id number] Location: 062 Ordering: FLETCHER AWAN Exam Date: 11/15/2024/8:09 Family Phys: Charge Code: 549198 Physician: [place] Order #: [id number] Dose#: 5.77 mGy PROCEDURE: C-ARM USEAGE 1 HR COMPARISON: [facility], XR, CHEST 2 VIEWS, 11/14/2024, 15:08. INDICATIONS: Fracture. TOTAL DOSE: 5.77 mGy Time: 1 minutes 38.5 seconds FINDINGS: IMAGES: 7 Intraoperative spot images of the left distal fibula and tibia. BONES: Intraoperative spot images of the tibia and fibula for surgical fixation. There is a medullary brittany in the distal fibula. Two screws traverse the distal brittany. Ghost tracks in the tibia and fibula with buttons are consistent with syndesmotic repair. OTHER: Negative. CONCLUSION: 1. Intraoperative spot images of the left distal fibula and tibia for surgical repair Dictated by: Elly Douglas MD on 11/15/2024 at 10:41 Approved by: Elly Douglas MD on 11/15/2024 at 10:43 Normal [facility] BMP with eGFRon 11-14-2024 AGE 64 years Normal [facility] Comment on above: Performed By: #### 2 18363 #### [facility],[address] [place], [place] [phone] Anion gap [Moles/Vol] 15 mmol/L Normal 10 - 20 [facility] Comment on above: Performed By: #### 2 46445 #### [facility],[address] [place], [place] [phone] BMP with eGFR Normal [facility] Comment on above: Result Comment: BASI C METABOLIC PANEL Performed By: #### 2 99226 #### [facility],[address] [place] [address] Calcium [Mass/Vol] 9.9 mg/dL Normal 8.5 - 10.1 [facility] Comment on above: Performed By: #### 2 20044 #### [facility],[address] [place] [address] Chloride [Moles/Vol] 103 mmol/L Normal 98 - 107 [facility] Comment on above: Performed By: #### 2 99181 #### [facility],[address] [place] [address] CO2 [Moles/Vol] 23.3 mmol/L Normal 21.0 - 32.0 [facility] Comment on above: Performed By: #### 2 36622 #### [facility],[address] [place] [address] Creatinine [Mass/Vol] 0.82 mg/dL Normal 0.55 - 1.02 [facility] Comment on above: Performed By: #### 2 84521 #### [facility],[address] [place] [address] GFR/1.73 sq M.predicted among non-blacks MDRD (S/P/Bld) [Vol rate/Area] mL/min/{1.73_m2} Normal 60 - 999 [facility] Comment on above: Performed By: #### 2 59216 #### [facility],[address] [place], [place] [phone] Result Comment: ACCO RDING TO THE NATIONAL KIDNEY DISEASE EDUCATION PROGRAM(NKDE), A NORMAL eGFR IS A VALUE GREATER THAN OR EQUAL TO 60 ML/MIN/1.73 SQ METERS. CHRONIC KIDNEY DISEASE: <60mL/MIN/1.73 SQ METERS KIDNEY FAILURE: <15mL/MIN/1.73 SQ METERS THIS TEST SHOULD ONLY BE USED FOR PATIENTS 18 YEARS OF AGE AND OLDER. Glucose [Mass/Vol] 96 mg/dL Normal 74 - 106 [facility] Comment on above: Performed By: #### 2 70701 #### [facility],[address] [place] [address] Potassium [Moles/Vol] 3.7 mmol/L Normal 3.5 - 5.1 [facility] Comment on above: Performed By: #### 2 66327 #### [facility],[address] [place] [address] 19382 Sodium [Moles/Vol] 138 mmol/L Normal 136 - 145 [facility] Comment on above: Performed By: #### 2 61160 #### [facility],[address] [place] [address] Urea nitrogen [Mass/Vol] 13 mg/dL Normal 7 - 18 [facility] Comment on above: Performed By: #### 2 08459 #### [facility],[address] [place] [address] CBC + DIFFon 11-14-2024 Baso # 0.04 x10EE3/UL Normal 0.00 - 0.10 [facility] Comment on above: Performed By: #### 2 84795 #### [facility],[address] [place] [address]87 Basophils/100 WBC (Bld) 0.4 % Normal 0.0 - 2.0 [facility] Comment on above: Performed By: #### 2 20134 #### [facility],[address] [place] [address] CBC + DIFF Normal [facility] Comment on above: Result Comment: CBC- COMPLETE BLOOD COUNT Performed By: #### 2 02684 #### [facility],[address] [place] [address] EO # 0.31 x10EE3/UL Normal 0.00 - 0.50 [facility] Comment on above: Performed By: #### 2 78538 #### [facility],[address] [place] [address] Eosinophils/100 WBC (Bld) 3.5 % Normal 0.0 - 7.0 [facility] Comment on above: Performed By: #### 2 87242 #### [facility],[address] [place], [place] [phone] Erythrocyte distribution width (RBC) [Ratio] 13.7 % Normal 12.0 - 15.6 [facility] Comment on above: Performed By: #### 2 54710 #### [facility],[address] [place] [address] Hematocrit (Bld) [Volume fraction] 40.4 % Normal 34.0 - 46.0 [facility] Comment on above: Performed By: #### 2 98165 #### [facility],[address] [place] [address] Hemoglobin (Bld) [Mass/Vol] 13.7 g/dL Normal 12.0 - 16.0 [facility] Comment on above: Performed By: #### 2 00657 #### [facility],[address] [place] [address] Lymph # 1.86 x10EE3/UL Normal 0.80 - 2.80 [facility] Comment on above: Performed By: #### 2 05710 #### [place] [address] Lymphocytes/100 WBC (Bld) 21.1 % Normal 20.0 - 45.0 [facility] Comment on above: Performed By: #### 2 78753 #### [facility],[address] [place] [address] MANUAL DIFF N/A Normal [facility] Comment on above: Performed By: #### 2 23781 #### [place] [address] MCH (RBC) [Entitic mass] 29 pg Normal 27 - 33 [facility] Comment on above: Performed By: #### 2 57533 #### [place] [address] MCHC 34 X10 3 Normal 32 - 36 [facility] Comment on above: Performed By: #### 2 71981 #### [place] [address] MCV (RBC) [Entitic vol] 87 fL Normal 80 - 99 [facility] Comment on above: Performed By: #### 2 86580 #### [place] [address] [place] # 0.52 x10EE3/UL Normal 0.20 - 1.00 [facility] Comment on above: Performed By: #### 2 60686 #### [place] [address] MONOS % 5.9 % Normal 0.0 - 10.0 [facility] Comment on above: Performed By: #### 2 82774 #### [facility],[address] [place] [address] Morphology Steven (Bld) [Interp] N/A Normal [facility] Comment on above: Performed By: #### 2 71350 #### [facility],[address] [place] [address] Neut # 6.11 x10EE3/UL Normal 1.50 - 7.10 [facility] Comment on above: Performed By: #### 2 22140 #### [place] [address] Neutrophils/100 WBC (Bld) 69.1 % Normal 46.0 - 76.0 [facility] Comment on above: Performed By: #### 2 90182 #### [place] [address] PLATELET 340 x10EE3/UL Normal 150 - 450 [facility] Comment on above: Performed By: #### 2 23379 #### [place] [address] Platelet mean volume (Bld) [Entitic vol] 8.0 fL Normal 6.6 - 10.5 [facility] Comment on above: Result Comment: AUTO MATED DIFFERENTIAL Performed By: #### 2 69736 #### [place] [id number] RBC 4.67 x 10EE6/UL Normal 4.10 - 5.30 [facility] Comment on above: Performed By: #### 2 45231 #### [place] [id number] WBC 8.8 x 10EE3/UL Normal 4.5 - 10.8 [facility] Comment on above: Performed By: #### 2 20780 #### [facility],[address] [place] [address] CHEST 2 VIEWSon 11-14-2024 CHEST 2 VIEWS [facility] [address] [place], [place] [address] Patient: ЕКАТЕРИНА BA Phone#: : 1960 Age: 64 Gender: F Pt. Type: Out Account: [id number] Location: Ordering: HORACIO ARMIJO Exam Date: 11/14/2024/15:08 Family Phys: Charge Code: [id number] Physician: [place] Order #: [id number] Dose#: PROCEDURE: X-RAY CHEST 2 VIEWS COMPARISON: None. INDICATIONS: Encounter for preprocedural respiratory examination. FINDINGS: LUNGS: Normal. No significant pulmonary parenchymal abnormalities. VASCULATURE: Normal. Unremarkable pulmonary vasculature. CARDIAC: Normal. No cardiac silhouette abnormality or cardiomegaly. MEDIASTINUM: Normal. No visible mass or adenopathy. PLEURA: Normal. No effusion or pleural thickening. BONES: Normal. No fracture or visible bony lesion. OTHER: Negative. CONCLUSION: No acute disease. Dictated by: Darcy Aguiar MD on 11/14/2024 at 15:32 Approved by: Darcy Aguiar MD on 11/14/2024 at 15:32 Normal [facility] Ankle min 3 Viewson 11-05-19 Ankle min 3 Views [facility] Imaging Services [address] [place] [address] Ankle min 3 Views MR#: [id number] Acct: [id number] Name: ЕКАТЕРИНА BA Rep #: [id number] : 1960 F 64 From: Fabiana de MD PCP: Dr. Dwayne Gibson MD Status: PRE ER Study: Ankle min 3 Views Date of Exam: 11/04/24 Exam# [id number] Ordering Dr: Alonso Zaldivar DO PROCEDURE: ANKLE MIN 3 VIEWS 11/04/2024 REASON FOR EXAM: FALL TECHNIQUE: ANKLE MIN 3 VIEWS Laterality: LEFT COMPARISON: 10/09/2023. FINDINGS: Acute spiral displaced fracture of the distal fibular diaphysis. Overlying soft tissue edema and swelling. Calcaneal spur formation. Enthesophyte formation at the calcaneal insertion of Achilles tendon. Normal visualized distal tibia and medial malleolus. Normal tibiotalar articulation and ankle mortise. Normal visualized talus. Normal visualized calcaneus. The visualized subtalar, talonavicular, calcaneocuboid and tarsal articulations are normal. RAD/Ankle min 3 Views IMPRESSION: Acute spiral displaced fracture of the distal fibular diaphysis. Overlying soft tissue edema and swelling. Reading Location: [place] [address] CC: Dr. Dwayne Gibson MD; Dr. Alonso Zaldivar DO Night Order Selector: Signed Normal [facility] Emergency Department Summary on 11-04-2024 Emergency Department Summary [facility] Medical Records Department [address] [place] [address] Emergency Department Summary 11/04/24 MR#: [id number] Acct: [id number] Name: ЕКАТЕРИНА BA Rep #: [id number] : 1960 64 From: Alonso Zaldivar DO PCP: Dr. Dwayne Gibson MD Status:REG ER Location: ED HPI History of Present Illness Chief Complaint: Lower Extremity Injury Narrative Narrative: Patient is a 64-year-old female with past medical history of GERD with esophagitis, hyperlipidemia, who presented to the emergency department chief complaint of left foot and ankle pain. Patient states that she got up to go the bathroom and noted that she knew the computer screen was on downstairs and went downstairs to turn this off. States that when she got to the second to last step she missed stepped causing her to twist her ankle. States that she was unable to bear weight therefore she came here for further evaluation management. Patient states that she not hit her head she not passed out she denies any blood thinner medications [facility] Medical History Hiatal hernia Chronic gastritis GERD with esophagitis Abdominal pain Abnormal CT scan, gastrointestinal tract Hyperlipidemia Diverticulosis Gastric ulcer Sacroiliitis Tobacco abuse GERD (gastroesophageal reflux disease) Home Medications ???Medication ???Instructions ???Recorded ???Last Taken ???Type omeprazole 20 mg capsule,delayed 20 mg PO DAILY 02/03/19 02/08/19 0 5:00 History release alendronate 70 mg tablet 70 mg PO QWEEK 06/25/24 Unknown Hi story rosuvastatin 20 mg tablet 20 mg PO QPM 06/25/24 Unknown Hist ory valsartan 80 mg tablet 80 mg PO DAILY 06/25/24 Unknown Hi story dicyclomine 20 mg tablet 20 mg PO BID PRN abdominal pain Unknown History metformin 500 mg tablet 500 mg PO BID 11/04/24 Unknown His tory ondansetron 4 mg disintegrating 4 mg PO Q6H PRN nausea and 5 Unknown Rx tablet vomiting #20 tabs oxycodone-acetaminophen 5 mg-325 1 tab PO Q6H PRN pain 3 days #12 0 11/04/24 Unknown Rx mg tablet (Endocet) tabs Allergy/AdvReac Type Severity Reaction Status Date / Time No Known Allergies Allergy Verified 11/04/24 06:18 Family History Father Myocardial infarction Heart disease Colon cancer Mother Cancer duodenal Surgical History History of colonoscopy ( 2015) History of esophagogastroduodenoscopy (EGD) ( 2008) History of left nephrectomy History of tubal ligation history of lysis of adhesions History of cholecystectomy History of appendectomy Social History Smoking Status: Current every day smoker tobacco type: cigarettes ROS ROS ED ROS Narrative Constitutional: Denies headache, fever, chills, lightness, dizziness Eyes: Denies double vision Cardiovascular: Denies chest pain Respiratory: Denies shortness of breath Neurological: Denies any numbness or tingling Musculoskeletal: Complains of left foot and ankle pain as noted above Skin: Denies any rashes or lesions EXAM Physical Exam Narrative Exam Narrative: General: Patient lying in bed rest comfortably did not appear to be in acute distress Head: Atraumatic, normocephalic Eyes: PERRL bilaterally, EOMI bilaterally, no conjunctival injection noted Neck: Soft, supple, trachea midline Cardiovascular: Regular rate and rhythm Respiratory: Clear to auscultation bilaterally Abdomen: No tenderness to palpation Musculoskeletal: Patient has tenderness palpation of the left foot on the lateral aspect as well as the medial and lateral malleolus. All of the bony prominence palpated joints taken through full range of motion no pain elicited Extremities: DP pulses +2/4 in the bilateral lower extremities Neurological: Patient following commands knew that she was at [facility] the year is 2024 Skin: Warm, dry, tact no rashes or lesions noted Const Vital Signs: 11/04/24 06:19 Temperature 97.9 F Temperature Source Oral Pulse Rate 86 Respiratory Rate 19 H Blood Pressure 143/71 H Blood Pressure Mean 95 Pulse Ox 97 Oxygen Delivery Method Room Air MDM MDM MDM Narrative Medical decision making narrative: Patient is a 64-year-old female who presented to the emergency department with a chief complaint of left foot and ankle pain. On the differential diagnosis includes but not limited to ankle sprain, lateral malleolus fracture, medial malleolus fracture, metatarsal fracture. Once the workup is obtained reviewed she will be reevaluated. Patient's foot and ankle x-ray reviewed by myself and by radiology which showed a acute spiral (more content not included)... Normal [facility] Foot min 3 Viewson 5 Foot min 3 Views [facility] Imaging Services [address] [place], [place] [address] Foot min 3 Views MR#: [id number] Acct: [id number] Name: ЕКАТЕРИНА BA Rep #: [id number] : 1960 F 64 From: Fabiana de MD PCP: Dr. Dwayne Gibson MD Status: PRE ER Study: Foot min 3 Views Date of Exam: 11/04/24 Exam# [id number] Ordering Dr: Alonso Zaldivar DO PROCEDURE: FOOT MIN 3 VIEWS 11/04/2024 REASON FOR EXAM: FALL TECHNIQUE: FOOT MIN 3 VIEWS Laterality: LEFT. COMPARISON: 10/09/2023. FINDINGS: Acute spiral displaced fracture of the distal fibular diaphysis. Calcaneal spur formation. Enthesophyte formation at the calcaneal insertion of Achilles tendon. Normal talus, calcaneus, and tarsal bones. Normal visualized subtalar, talonavicular, calcaneocuboid, tarsal and tarsometatarsal articulations. Normal metatarsi. Normal metatarsophalangeal joint of the great toe. Normal tibial and fibular sesamoid bones. Normal interphalangeal joint of the great toe. Normal phalanges of the great toe. Normal second through fifth metatarsophalangeal joints. Normal interphalangeal joints of the lesser toes. Normal phalanges of the lesser toes. RAD/Foot min 3 Views IMPRESSION: ACUTE SPIRAL DISPLACED FRACTURE OF THE DISTAL FIBULAR DIAPHYSIS. Reading Location: [place] [address] CC: Dr. Dwayne Gibson MD; Dr. Alonso Zaldivar DO Night Order Selector: Signed Normal [facility] Anion gap in Serum or Plasma Ordered By: Dwayne Gibson on 09-16-2024 Anion gap [Moles/Vol] 13 mmol/L - [facility] BUN/creatinine ratioOrdered By: wDayne Gibson on 09-16-2024 Urea nitrogen/Creatinine [Mass ratio] 18.7 mg/mg 01-[address] [facility] Bilirubin, totalOrdered By: Dwayne Gibson on 09-16-2024 Bilirubin [Mass/Vol] 0.34 mg/dL 0.00-1.30 [facility] Carbon dioxide, total [Moles /volume] in Central venous bloodOrdered By: Dwayne Gibson on 09-16-2024 CO2 [Moles/Vol] 22.6 mmol/L 21.0-32.[address] [facility] Chloride assayOrdered By: Sadie Gibson on 09-16-2024 Chloride [Moles/Vol] 103 mmol/L 98-108 [facility] Comprehensive Metabolic Prof ilon 09-16-2024 Albumin [Mass/Vol] 4.2 g/dL Normal 3.4-4.8 [facility] Comment on above: Order Comment: Order Date: 09/16/24 Order Info: [id number] - CMP Order Info: [id number] - LIPID Performed By: #### L 506.1001 #### [facility] Laboratory [facility] [address] [place], [place], [id number] Albumin/Globulin [Mass ratio] 1.3 {ratio} Normal 0.9-2.[address] [facility] Comment on above: Order Comment: Order Date: 09/16/24 Order Info: [id number] - CMP Order Info: [id number] - LIPID Performed By: #### L 506.1001 #### [facility] [address] [place], [address] ALK PHOS 86 U/L Normal 35-[address] [facility] Comment on above: Order Comment: Order Date: 09/16/24 Order Info: [id number] - CMP Order Info: [id number] - LIPID Performed By: #### L 506.1001 #### [facility] [address] [place], [address] ALT [Catalytic activity/Vol] 24 U/L Normal <=[address] [facility] Comment on above: Order Comment: Order Date: 09/16/24 Order Info: [id number] - CMP Order Info: [id number] - LIPID Performed By: #### L [id number] #### [facility] [address] [place], [address] AST [Catalytic activity/Vol] 27 U/L Normal <=[address] [facility] Comment on above: Order Comment: Order Date: 09/16/24 Order Info: [id number] - CMP Order Info: [id number] - LIPID Performed By: #### L 506.1001 #### [facility] [address] [place], [address] Bilirubin [Mass/Vol] 0.34 mg/dL Normal 0.00-1.30 [facility] Comment on above: Order Comment: Order Date: 09/16/24 Order Info: [id number] - CMP Order Info: [id number] - LIPID Performed By: #### L 506.1001 #### [facility] [address] [place], [address] BUN/CRE 18.7 RATIO Normal 10-[address] [facility] Comment on above: Order Comment: Order Date: 09/16/24 Order Info: [id number] - CMP Order Info: [id number] - LIPID Performed By: #### L 506.1001 #### [facility] [address] [place], [address] Calcium [Mass/Vol] 9.1 mg/dL Normal 7.6-11.0 [facility] Comment on above: Order Comment: Order Date: 09/16/24 Order Info: 0786-1 - CMP Order Info: [id number] - LIPID Performed By: #### L 506.1001 #### [facility] [address] [place], [address] Chloride [Moles/Vol] 103 mmol/L Normal 98-108 [facility] Comment on above: Order Comment: Order Date: 09/16/24 Order Info: [id number] - CMP Order Info: [id number] - LIPID Performed By: #### L [id number] #### [facility] [address] [place], [address] CO2 [Moles/Vol] 22.6 mmol/L Normal 21.0-32.[address] [facility] Comment on above: Order Comment: Order Date: 09/16/24 Order Info: 0786-1 - CMP Order Info: [id number] - LIPID Performed By: #### L 506.1001 #### [facility] [address] [place], [address] Creatinine [Mass/Vol] 0.97 mg/dL Normal 0.70-1.20 [facility] Comment on above: Order Comment: Order Date: 09/16/24 Order Info: [id number] - CMP Order Info: [id number] - LIPID Performed By: #### L [id number] #### [facility] [address] [place], [address] GAP 13 Normal 5-[address] [facility] Comment on above: Order Comment: Order Date: 09/16/24 Order Info: 0786-1 - CMP Order Info: [id number] - LIPID Performed By: #### L [id number] #### [facility] [address] [place], [address] GFR/1.73 sq M.predicted among non-blacks MDRD (S/P/Bld) [Vol rate/Area] 65 mL/min/{1.73_m2} Normal >[address] [facility] [facility] Comment on above: Order Comment: Order Date: 09/16/24 Order Info: 0786-1 - CMP Order Info: [id number] - LIPID Result Comment: mL/m in/1.73m2 CKD-EPI Creatinine Equation (2020) Performed By: #### L 506.1001 #### [facility] [address] [place], [address] Globulin (S) [Mass/Vol] 3.3 g/dL Normal 2.2-4.[address] [facility] Comment on above: Order Comment: Order Date: 09/16/24 Order Info: 0786-1 - CMP Order Info: [id number] - LIPID Performed By: #### L 506.1001 #### [facility] [address] [place], [address] Glucose [Mass/Vol] 127 mg/dL High 70-99 [facility] Comment on above: Order Comment: Order Date: 09/16/24 Order Info: 0786-1 - CMP Order Info: [id number] - LIPID Performed By: #### L 506.1001 #### [facility] [address] [place], [address] Potassium [Moles/Vol] 4.1 mmol/L Normal 3.3-5.1 [facility] Comment on above: Order Comment: Order Date: 09/16/24 Order Info: 0786-1 - CMP Order Info: [id number] - LIPID Performed By: #### L 506.1001 #### [facility] [address] [place], [address] Sodium [Moles/Vol] 138 mmol/L Normal 133-145 [facility] Comment on above: Order Comment: Order Date: 09/16/24 Order Info: 0786-1 - CMP Order Info: [id number] - LIPID Performed By: #### L 506.1001 #### [facility] [address] [place], [place], [address] T PROT 7.5 g/dL Normal 5.9-8.[address] [facility] Comment on above: Order Comment: Order Date: 09/16/24 Order Info: 0786-1 - CMP Order Info: [id number] - LIPID Performed By: #### L 506.1001 #### [facility] [address] [place], [address] Urea nitrogen [Mass/Vol] 18 mg/dL Normal 4-[address] [facility] Comment on above: Order Comment: Order Date: 09/16/24 Order Info: 0786-1 - CMP Order Info: [id number] - LIPID Performed By: #### L 506.1001 #### [facility] [address] [place], [address] Glomerular filtration rate ( GFR) estimation/1.73 sq m using serum, plasma, or whole bOrdered By: Dwayne Gibson on 09-16-2024 GFR/1.73 sq M.predicted among non-blacks MDRD (S/P/Bld) [Vol rate/Area] 65 mL/min/{1.73_m2} >[address] [facility] Comment on above: mL/min/1.73m2 CKD-EP I Creatinine Equation (2020) Laboratory - Chemistry and C hemistry - challengeOrdered By: Dwayne Gibson on 09-16-2024 AST [Catalytic activity/Vol] 27 U/L <[address] [facility] Potassium measurement (mass/ volume)Ordered By: Dwayne Gibson on 09-16-2024 Potassium (Unsp spec) [Mass/Vol] 4.1 mmol/L 3.3-5.[address] [facility] Serum creatinine measurement (mass/volume)Ordered By: Dwayne Gibson on 09-16-2024 Creatinine [Mass/Vol] 0.97 mg/dL 0.70-1.20 [facility] Serum globulin measurementOr dered By: Dwayne Gibson on 09-16-2024 Globulin (S) [Mass/Vol] 3.3 g/dL 2.2-4.[address] [facility] Serum glucose measurement (m ass/volume)Ordered By: Dwayne Gibson on 09-16-2024 Glucose [Mass/Vol] 127 mg/dL High 70-99 [facility] Serum or plasma alanine salmon otransferase (ALT) measurementOrdered By: Dwayne Gibson on 09-16-2024 ALT [Catalytic activity/Vol] 24 U/L <[address] [facility] Serum or plasma albumin julee urement (mass/volume)Ordered By: Dwayne Gibson on 09-16-2024 Albumin [Mass/Vol] 4.2 g/dL 3.4-4.8 [facility] Serum or plasma albumin/glob ulin mass ratioOrdered By: Dwayne Gibson on 09-16-2024 Albumin/Globulin [Mass ratio] 1.3 {ratio} 0.9-2.[address] [facility] Serum or plasma alkaline wagner sphatase measurementOrdered By: Dwayne Gibson on 09-16-2024 ALP [Catalytic activity/Vol] 86 U/L 35-[address] [facility] Serum or plasma calcium julee urement (mass/volume)Ordered By: Dwayne Gibson on 09-16-2024 Calcium [Mass/Vol] 9.1 mg/dL 7.6-11.0 [facility] Serum or plasma urea nitroge n measurement (mass/volume)Ordered By: Dwayne Gibson on 09-16-2024 Urea nitrogen [Mass/Vol] 18 mg/dL 4-[address] [facility] Sodium levelOrdered By: Dwayne Gibson on 09-16-2024 Sodium [Moles/Vol] 138 mmol/L 133-145 [facility] Total proteinOrdered By: Efrain Gibson on 09-16-2024 Protein [Mass/Vol] 7.5 g/dL 5.9-8.4 [facility] Absolute lymphocyte countOrd ered By: Dwayne Gibson on 09-13-2024 Lymphocytes Auto (Unsp spec) [#/Vol] 2.49 10*3/uL 0.83-4.[address] [facility] Absolute neutrophil countOrd ered By: Dwayne Gibson on 09-13-2024 Neutrophils (Bld) [#/Vol] 5.2 10*3/uL 2.0-7.[address] [facility] Automated lymphocyte count a s percentage of total leukocytesOrdered By: Dwayne Gibson on 09-13-2024 Lymphocytes/100 WBC Auto (Unsp spec) 29.2 % 19-[address] [facility] Basophil percentageOrdered B y: Dwayne Gibson on 09-13-2024 Basophils/100 WBC (Bld) 0.8 % 0-[address] [facility] CBC W/Diff, Automatedon 08-28 Absolute Lymph 2.49 X10 3/uL Normal 0.83-4.[address] [facility] Comment on above: Order Comment: Order Date: 09/16/24 Order Info: 0786-1 - CMP Order Info: [id number] - LIPID Performed By: #### L 506.1001 #### [facility] [address] [place], [address] Absolute Neut 5.2 X10 3/uL Normal 2.0-7.[address] [facility] Comment on above: Order Comment: Order Date: 09/16/24 Order Info: 0786-1 - CMP Order Info: [id number] - LIPID Performed By: #### L 506.1001 #### [facility] [address] [place], [address] Basophils/100 WBC (Bld) 0.8 % Normal 0-[address] [facility] Comment on above: Order Comment: Order Date: 09/16/24 Order Info: 0786-1 - CMP Order Info: [id number] - LIPID Performed By: #### L 506.1001 #### [facility] [address] [place], [address] Eosinophils/100 WBC (Bld) 3.0 % Normal 0-[address] [facility] Comment on above: Order Comment: Order Date: 09/16/24 Order Info: 0786- - CMP Order Info: [id number] - LIPID Performed By: #### L 506.1001 #### [facility] [address] [place], [address] Erythrocyte distribution width (RBC) [Ratio] 13.1 % Normal 11.6-14.[address] [facility] Comment on above: Order Comment: Order Date: 09/16/24 Order Info: 07- - CMP Order Info: [id number] - LIPID Performed By: #### L 506.1001 #### [facility] [address] [place], [place], [id number] Hematocrit (Bld) [Volume fraction] 42.6 % Normal 37-[address] [facility] Comment on above: Order Comment: Order Date: 09/16/24 Order Info: 07- - CMP Order Info: [id number] - LIPID Performed By: #### L 506.1001 #### [facility] [address] [place], [address] Hemoglobin (Bld) [Mass/Vol] 14.3 g/dL Normal 12.0-15.[address] [facility] Comment on above: Order Comment: Order Date: 09/16/24 Order Info: 0786- - CMP Order Info: [id number] - LIPID Performed By: #### L 506.1001 #### [facility] [address] [place], [address] IG% 0.200 Normal 0.0-0.[address] [facility] Comment on above: Order Comment: Order Date: 09/16/24 Order Info: 0786- - CMP Order Info: [id number] - LIPID Result Comment: IG% - Immature Granulocytes (promyelocytes, myelocytes and metamyelocytes) > 1% indicates that a LEFT SHIFT is Present. Performed By: #### L 506.1001 #### [facility] [address] [place], [address] Lymphocytes/100 WBC (Bld) 29.2 % Normal 19-[address] [facility] Comment on above: Order Comment: Order Date: 09/16/24 Order Info: 0786-1 - CMP Order Info: [id number] - LIPID Performed By: #### L 506.1001 #### [facility] [address] [place], [address] MCH (RBC) [Entitic mass] 28.8 pg Normal 27.0-32.[address] [facility] Comment on above: Order Comment: Order Date: 09/16/24 Order Info: 0786-1 - CMP Order Info: [id number] - LIPID Performed By: #### L 506.1001 #### [facility] [address] [place], [address] MCHC (RBC) [Mass/Vol] 33.6 g/dL Normal 32-36 [facility] Comment on above: Order Comment: Order Date: 09/16/24 Order Info: 0786-1 - CMP Order Info: [id number] - LIPID Performed By: #### L 506.1001 #### [facility] [address] [place], [address] MCV (RBC) [Entitic vol] 85.9 fL Normal 81-[address] [facility] Comment on above: Order Comment: Order Date: 09/16/24 Order Info: 0786-1 - CMP Order Info: [id number] - LIPID Performed By: #### L 506.1001 #### [facility] [address] [place], [address] Monocytes/100 WBC (Bld) 5.5 % Normal 0-[address] [facility] Comment on above: Order Comment: Order Date: 09/16/24 Order Info: 0786-1 - CMP Order Info: [id number] - LIPID Performed By: #### L 506.1001 #### [facility] [address] [place], [address] Neutrophils/100 WBC (Bld) 61.3 % Normal 47-[address] [facility] Comment on above: Order Comment: Order Date: 09/16/24 Order Info: 0786-1 - CMP Order Info: [id number] - LIPID Performed By: #### L 506.1001 #### [facility] [address] [place], [address] Nucleated RBC (Bld) [#/Vol] 0 10*3/uL Normal 0-[address] [facility] Comment on above: Order Comment: Order Date: 09/16/24 Order Info: 0786-1 - CMP Order Info: [id number] - LIPID Performed By: #### L 506.1001 #### [facility] [address] [place], [address] Platelet mean volume (Bld) [Entitic vol] 10.4 fL Normal 6.2-12.[address] [facility] Comment on above: Order Comment: Order Date: 09/16/24 Order Info: 0786-1 - CMP Order Info: [id number] - LIPID Performed By: #### L 506.1001 #### [facility] [address] [place], [address] Platelets (Bld) [#/Vol] 293 10*3/uL Normal 150-[address] [facility] Comment on above: Order Comment: Order Date: 09/16/24 Order Info: 0786-1 - CMP Order Info: [id number] - LIPID Performed By: #### L 506.1001 #### [facility] [address] [place], [address] RBC (Bld) [#/Vol] 4.96 10*6/uL Normal 4.2-5.4 [facility] Comment on above: Order Comment: Order Date: 09/16/24 Order Info: 0786-1 - CMP Order Info: [id number] - LIPID Performed By: #### L 506.1001 #### [facility] [address] [place], [address] RDW SD 40.0 fl Normal 35.1-43.[address] [facility] Comment on above: Order Comment: Order Date: 09/16/24 Order Info: 0786-1 - CMP Order Info: [id number] - LIPID Performed By: #### L 506.1001 #### [facility] [address] [place], [place], [address] WBC (Bld) [#/Vol] 8.5 10*3/uL Normal 4.4-11.0 [facility] Comment on above: Order Comment: Order Date: 09/16/24 Order Info: 0786-1 - CMP Order Info: [id number] - LIPID Performed By: #### L 506.1001 #### [facility] [address] [facility] [place], [place], [address] Calculated very low density lipoprotein (VLDL) cholesterol measurementOrdered By: Dwayne Gibson on 09-13-2024 Calculated very low density lipoprotein (VLDL) cholesterol measurement 28 mg/dL 5-[address] [facility] Eosinophil percentageOrdered By: Dwayen Gibson on 09-13-2024 Eosinophils/100 WBC (Bld) 3.0 % 0-[address] [facility] Erythrocyte distribution wid th ratioOrdered By: Dwayne Gibson on 09-13-2024 Erythrocyte distribution width (RBC) [Ratio] 13.1 % 11.6-14.[address] [facility] Erythrocyte distribution wid th standard deviationOrdered By: Dwayne Gibson on 09-13-2024 Erythrocyte distribution width (RBC) [Ratio] 40.0 fl 35.1-43.[address] [facility] Hematocrit Auto (Bld) [Volum e fraction]Ordered By: Dwayne Gibson on 09-13-2024 Hematocrit (Bld) [Volume fraction] 42.6 % 37-[address] [facility] Hemoglobin A1con 09-13-2024 HbA1c (Bld) [Mass fraction] 6.1 % High <=5.[address] [facility] Comment on above: Order Comment: Order Date: 09/16/24 Order Info: 0786-1 - CMP Order Info: [id number] - LIPID Result Comment: Norm al < 5.7 % Prediabetic 5.7 - 6.4 % Diabetic >or= 6.5 % Please note range changes. Performed By: #### L 506.1001 #### [facility] [address] [place], [address] Hemoglobin A1c percentageOrd ered By: Dwayne Gibson on 09-13-2024 HbA1c (Bld) [Mass fraction] 6.1 % High <5.[address] [facility] Comment on above: Normal < 5.7 % Predi abetic 5.7 - 6.4 % Diabetic >or= 6.5 % Please note range changes. Hemoglobin measurementOrdere d By: Dwayne Gibson on 09-13-2024 Hemoglobin (Bld) [Mass/Vol] 14.3 g/dL 12.0-15.[address] [facility] Immature granulocytes/100 WB C Auto (Bld)Ordered By: Dwayne Gibson on 09-13-2024 Immature granulocytes/100 WBC (Bld) 0.200 % 0.0-0.[address] [facility] Comment on above: IG% - Immature Granu locytes (promyelocytes, myelocytes and metamyelocytes) > 1% indicates that a LEFT SHIFT is Present. LDL calc ser/plasOrdered By: Dwayne Gibson on 09-13-2024 Cholesterol in LDL [Mass/Vol] 59 mg/dL [facility] Comment on above: Kqrknitdps=192-040 m g/dL & Higher Iqer=923 mg/dL or greater Lipid Profileon 09-13-2024 CHOL:HDL 2.[address] [facility] Comment on above: Order Comment: Order Date: 09/16/24 Order Info: 0786-1 - CMP Order Info: [id number] - LIPID Performed By: #### L 506.1001 #### [facility] [address] [place], [address] Cholesterol [Mass/Vol] 146 mg/dL Normal <=200 [facility] Comment on above: Order Comment: Order Date: 09/16/24 Order Info: 0786-1 - CMP Order Info: [id number] - LIPID Result Comment: Chol esterol level, Desirable <200 mg/dL Borderline high cholesterol 200-239 mg/dL High cholesterol >=240 mg/dL Recommendations of the NCEP Adult Treatment Panel for the following risk-cutoff thresholds for the [place] population. Performed By: #### L 506.1001 #### [facility] [address] [place], [address] Cholesterol in HDL [Mass/Vol] 59 mg/dL Normal [facility] Comment on above: Order Comment: Order Date: 09/16/24 Order Info: 0786-1 - CMP Order Info: [id number] - LIPID Result Comment: Viviana onal Cholesterol Education Program (NCEP) guidelines: <40 mg/dL: Low HDL-cholesterol (major risk factor for CHD) >= 60 mg/dL: High HDL-cholesterol (negative risk factor for CHD) HDL-cholesterol is affected by a number of factors, e.g. smoking, exercise, hormones, sex and age. Performed By: #### L 506.1001 #### [facility] [address] [place], [address] Cholesterol in LDL [Mass/Vol] 59 mg/dL Normal [facility] Comment on above: Order Comment: Order Date: 09/16/24 Order Info: 0786- - CMP Order Info: [id number] - LIPID Result Comment: Bord sxecby=457-298 mg/dL Higher Iiqi=641 mg/dL or greater Performed By: #### L 506.1001 #### [facility] [address] [place], [address] Cholesterol in VLDL [Mass/Vol] 28 mg/dL Normal 5-[address] [facility] Comment on above: Order Comment: Order Date: 09/16/24 Order Info: 0786-1 - CMP Order Info: [id number] - LIPID Performed By: #### L 506.1001 #### [facility] [address] [place], [address] Triglyceride [Mass/Vol] 140 mg/dL Normal [facility] Comment on above: Order Comment: Order Date: 09/16/24 Order Info: 0786-1 - CMP Order Info: [id number] - LIPID Result Comment: The drugs N-Acetylcysteine and Metamizole may falsely depress this assay. Normal range: <150 mg/dL Borderline High: 150-199 mg/dL High: 200-499 mg/dL Very High: >500 mg/dL Performed By: #### L 506.1001 #### [facility] [address] [place], [address] MCV (mean corpuscular volume ) determinationOrdered By: Dwayne Gibson on 09-13-2024 MCV (RBC) [Entitic vol] 85.9 fL 81-[address] [facility] Mean corpuscular hemoglobin (MCH) determinationOrdered By: Dwayne Gibson on 09-13-2024 MCH (RBC) [Entitic mass] 28.8 pg 27.0-32.[address] [facility] Mean corpuscular hemoglobin concentration (MCHC) determinationOrdered By: Dwayne Gibson on 09-13-2024 MCHC (RBC) [Mass/Vol] 33.6 g/dL 32-36 [facility] Mean platelet volume determi nationOrdered By: Dwayne Gibson on 09-13-2024 Platelet mean volume (Bld) [Entitic vol] 10.4 fL 6.2-12.[address] [facility] Monocyte percentageOrdered B y: Dwayne Gibson on 09-13-2024 Monocytes/100 WBC (Bld) 5.5 % 0-[address] [facility] Neutrophil percentageOrdered By: Dwayne Gibson on 09-13-2024 Neutrophils/100 WBC (Bld) 61.3 % 47-[address] [facility] Nucleated red blood cell per centageOrdered By: Dwayne Gibson on 09-13-2024 Nucleated RBC/100 WBC (Bld) [Ratio] 0 % 0-[address] [facility] Platelet countOrdered By: Sadie Gibson on 09-13-2024 Platelets (Bld) [#/Vol] 293 10*3/uL 150-[address] [facility] RBC Auto (Bld) [#/Vol]Ordere d By: Dwayne Gibson on 09-13-2024 RBC (Bld) [#/Vol] 4.96 10*6/uL 4.2-5.4 [facility] Screening total cholesterol/ high density lipoprotein (HDL) cholesterol ratioOrdered By: Dwayne Gibson on 09-13-2024 Cholesterol.total/Chol esterol in HDL [Mass ratio] 2.47 {ratio} [facility] Serum or plasma cholesterol in HDL measurement (mass/volume)Ordered By: Dwayne Gibson on 09-13-2024 Cholesterol in HDL [Mass/Vol] 59 mg/dL >[address] [facility] Comment on above: National Cholesterol Education Program (NCEP) guidelines:<40 mg/dL: Low HDL-cholesterol (major risk factor for CHD)>= 60 mg/dL: High HDL-cholesterol (negative risk factor for CHD)HDL-cholesterol is affected by a number of factors, e.g. smoking, exercise, hormones, sex and age. Serum or plasma cholesterol measurement (mass/volume)Ordered By: Dwayne Gibson on 09-13-2024 Cholesterol [Mass/Vol] 146 mg/dL <201 [facility] Comment on above: Cholesterol level, D esirable <200 mg/dLBorderline high cholesterol 200-239 mg/dLHigh cholesterol >=240 mg/dLRecommendations of the NCEP Adult Treatment Panel for the following risk-cutoff thresholds for the [place] population. Triglycerides measurementOrd ered By: Dwayne Gibson on 09-13-2024 Triglyceride [Mass/Vol] 140 mg/dL <[address] [facility] Comment on above: The drugs N-Acetylcy steine and Metamizole may falsely depress this assay. Normal range: <150 mg/dLBorderline High: 150-199 mg/dLHigh: 200-499 mg/dLVery High: >500 mg/dL Vitamin D,25 Hydroxyon 09-13 Vitamin D 25-OH 50.2 ng/mL Normal 30-[address] [facility] Comment on above: Order Comment: Order Date: 06/15/24 Order Info: [id number] - LIPID Result Comment: Dimple min D Status Deficiency: <20 ng/mL (50nmol/L) Insufficiency: 20-30 ng/mL (50-75 nmol/L) Sufficiency: 30-100 ng/mL (75-250 nmol/L) Toxicity: >100 ng/mL (>250 nmol/L) Performed By: #### L 506.1001 #### [facility] [address] [place], [address] White blood cell (WBC) count Ordered By: Dwayne Gibson on 09-13-2024 WBC (Bld) [#/Vol] 8.5 10*3/uL 4.4-11.0 [facility] Emergency Department Summary on 06-25-2024 Emergency Department Summary [facility] Medical Records Department [address] [place] [address] Emergency Department Summary 06/25/24 MR#: [id number] Acct: [id number] Name: ЕКАТЕРИНА BA Rep #: [id number] : 1960 64 From: Odilon Guillaume MD [...] 10:32 06/25/24 (more content not included)... Normal [facility] Bone density reportOrdered B y: Ming Andrade on 06-16-2024 Study report Skeletal system DXA [facility] Imaging Services [address] [place] [address] Dexa Bone Density Study MR#: [id number] Acct: [id number] Name: ЕКАТЕРИНА BA Rep #: [id number] : 1960 F 64 From: Raman Andrade DO PCP: Dr. Dwayne Gibson MD Status: RE G CLI Study:Dexa Bone Density Study Date of Exam: 06/15/24 Exam# [id number] Ordering Dr: Dwayne Gibson MD PROCEDURE: DEXA [...] Recommend follow-up as clinically warranted. [facility] CC: Dr. Dwayne Gibson MD ~ Night Order Selector: Signed [facility] Breast imaging reportOrdered By: Keny Branch on 06-15-2024 Study report [facility] Imaging Services [address] [place] [address] SCRN MAMM (CAD)W/RUBY BILAT MR#: [id number] Acct: [id number] Name: ЕКАТЕРИНА BA Rep #: [id number] : 1960 F 64 From: Odell Branch MD PCP: Dr. Dwayne Gibson MD Status: RE G CLI Study:SCRN MAMM (CAD)W/RUBY BILAT Date of Exa m: 06/15/24 Exam# [id number] Ordering Dr: Dwayne Gibson MD EXAM: SCRN [...] be mailed to the patient. Reading Location: [facility] CC: Dr. Dwayne Gibson MD ~ Night Order Selector: Signed [facility] Dexa Bone Density Studyon Dexa Bone Density Study [facility] Imaging Services [address] [place] [id number] Dexa Bone Density Study MR#: [id number] Acct: [id number] Name: ЕКАТЕРИНА BA Rep #: [id number] : 1960 F 64 From: Ming Benitez i, DO PCP: Dr. Dwayne Gibson MD Status: REG CLI Study: Dexa Bone Density Study Date of Exam: 06/15/24 Exam# [id number] Ordering Dr: Dwayne Gibson MD PROCEDURE: DEXA [...] Location: [place] CC: Dr. Dwayne Gibson MD Night Order Selector: Signed Normal [facility] SCRN MAMM (CAD)W/RUBY BILATo n 06-15-2024 SCRN MAMM (CAD)W/RUBY BILAT [facility] Imaging Services [address] [place], [place] [address] SCRN MAMM (CAD)W/RUBY BILAT MR#: [id number] Acct: [id number] Name: ЕКАТЕРИНА BA Rep #: [id number] : 1960 F 64 From: Keny wilhelm MD PCP: Dr. Dwayne Gibson MD Status: REG [facility] Study: SCRN MAMM (CAD)W/RUBY BILAT Date of Exam: 05/28 12/22 Exam# [id number] Ordering Dr: Dwayne Gibson MD EXAM: SCRN [...] be mailed to the patient. Reading Location: [place] [address] CC: Dr. Dwayne Gibson MD Night Order Selector: Signed Normal [facility] Absolute lymphocyte countOrd ered By: Dwayne Gibson on 06-07-2024 Lymphocytes Auto (Unsp spec) [#/Vol] 1.98 10*3/uL 0.83-4.[address] [facility] Absolute neutrophil countOrd ered By: Dwayne Gibson on 06-07-2024 Neutrophils (Bld) [#/Vol] 4.7 10*3/uL 2.0-7.[address] [facility] Anion gap in Serum or Plasma Ordered By: Dwayne Gibson on 06-07-2024 Anion gap [Moles/Vol] 12 mmol/L 5-15 [facility] Automated lymphocyte count a s percentage of total leukocytesOrdered By: Dwayne Gibson on 06-07-2024 Lymphocytes/100 WBC Auto (Unsp spec) 26.9 % 19- [facility] BUN/creatinine ratioOrdered By: Dwayne Gibson on 06-07-2024 Urea nitrogen/Creatinine [Mass ratio] 17.8 mg/mg - [facility] Basophil percentageOrdered B y: Dwayne Gibson on 06-07-2024 Basophils/100 WBC (Bld) 0.5 % 0- [facility] Bilirubin Test strip Ql (U)O rdered By: Dwayne Gibson on 06-07-2024 Bilirubin Ql (U) Negative Negative [facility] Bilirubin, totalOrdered By: Dwayne Gibson on 06-07-2024 Bilirubin [Mass/Vol] 0.28 mg/dL 0.00-1.30 [facility] CBC W/Diff, Automatedon 05-28 Absolute Lymph 1.98 X10 3/uL Normal 0.83-4.51 [facility] [facility] Comment on above: Order Comment: Order Date: 03/18/24 Order Info: 0184-1 - CBCD Performed By: #### L 501.5200, L500.4100, L509.1000, L501.9985, L100.0100, L501.2300, L500.4050 #### [facility] [address] [place], [address] Absolute Neut 4.7 X10 3/uL Normal 2.0-7.[address] [facility] Comment on above: Order Comment: Order Date: 03/18/24 Order Info: 0184-1 - CBCD Performed By: #### L 501.5200, L500.4100, L509.1000, L501.9985, L100.0100, L501.2300, L500.4050 #### [facility] [address] [place], [address] Basophils/100 WBC (Bld) 0.5 % Normal 0-[address] [facility] Comment on above: Order Comment: Order Date: 03/18/24 Order Info: 0184- - CBCD Performed By: #### L 501.5200, L500.4100, L509.1000, L501.9985, L100.0100, L501.2300, L500.4050 #### [facility] [address] [place], [address] Eosinophils/100 WBC (Bld) 3.1 % Normal 0-[address] [facility] Comment on above: Order Comment: Order Date: 03/18/24 Order Info: 0184- - CBCD Performed By: #### L 501.5200, L500.4100, L509.1000, L501.9985, L100.0100, L501.2300, L500.4050 #### [facility] [address] [facility] [place], [address] Erythrocyte distribution width (RBC) [Ratio] 13.0 % Normal 11.6-14.[address] [facility] Comment on above: Order Comment: Order Date: 03/18/24 Order Info: 0184- - CBCD Performed By: #### L 501.5200, L500.4100, L509.1000, L501.9985, L100.0100, L501.2300, L500.4050 #### [facility] [address] [facility] [place], [address] Hematocrit (Bld) [Volume fraction] 42.3 % Normal 37-[address] [facility] Comment on above: Order Comment: Order Date: 03/18/24 Order Info: 0184- - CBCD Performed By: #### L 501.5200, L500.4100, L509.1000, L501.9985, L100.0100, L501.2300, L500.4050 #### [facility] [address] [place], [address] Hemoglobin (Bld) [Mass/Vol] 13.8 g/dL Normal 12.0-15.[address] [facility] Comment on above: Order Comment: Order Date: 03/18/24 Order Info: 0184-1 - CBCD Performed By: #### L 501.5200, L500.4100, L509.1000, L501.9985, L100.0100, L501.2300, L500.4050 #### [facility] [address] [place], [address] IG% 0.400 Normal 0.0-0.[address] [facility] Comment on above: Order Comment: Order Date: 03/18/24 Order Info: 0184-1 - CBCD Result Comment: IG% - Immature Granulocytes (promyelocytes, myelocytes and metamyelocytes) > 1% indicates that a LEFT SHIFT is Present. Performed By: #### L 501.5200, L500.4100, L509.1000, L501.9985, L100.0100, L501.2300, L500.4050 #### [facility] [address] [place], [address] Lymphocytes/100 WBC (Bld) 26.9 % Normal 19-[address] [facility] Comment on above: Order Comment: Order Date: 03/18/24 Order Info: 0184-1 - CBCD Performed By: #### L 501.5200, L500.4100, L509.1000, L501.9985, L100.0100, L501.2300, L500.4050 #### [facility] [address] [place], [address] MCH (RBC) [Entitic mass] 28.8 pg Normal 27.0-32.[address] [facility] Comment on above: Order Comment: Order Date: 03/18/24 Order Info: 0184-1 - CBCD Performed By: #### L 501.5200, L500.4100, L509.1000, L501.9985, L100.0100, L501.2300, L500.4050 #### [facility] [address] [place], [address] MCHC (RBC) [Mass/Vol] 32.6 g/dL Normal 32-36 [facility] Comment on above: Order Comment: Order Date: 03/18/24 Order Info: 0184-1 - CBCD Performed By: #### L 501.5200, L500.4100, L509.1000, L501.9985, L100.0100, L501.2300, L500.4050 #### [facility] [address] [place], [address] MCV (RBC) [Entitic vol] 88.3 fL Normal 81-[address] [facility] Comment on above: Order Comment: Order Date: 03/18/24 Order Info: 0184-1 - CBCD Performed By: #### L 501.5200, L500.4100, L509.1000, L501.9985, L100.0100, L501.2300, L500.4050 #### [facility] [address] [place], [address] Monocytes/100 WBC (Bld) 4.8 % Normal 0-[address] [facility] Comment on above: Order Comment: Order Date: 03/18/24 Order Info: 0184-1 - CBCD Performed By: #### L 501.5200, L500.4100, L509.1000, L501.9985, L100.0100, L501.2300, L500.4050 #### [facility] [address] [place], [address] Neutrophils/100 WBC (Bld) 64.3 % Normal 47-[address] [facility] Comment on above: Order Comment: Order Date: 03/18/24 Order Info: 018- - CBCD Performed By: #### L 501.5200, L500.4100, L509.1000, L501.9985, L100.0100, L501.2300, L500.4050 #### [facility] [address] [place], [address] Nucleated RBC (Bld) [#/Vol] 0 10*3/uL Normal 0-[address] [facility] Comment on above: Order Comment: Order Date: 03/18/24 Order Info: 018- - CBCD Performed By: #### L 501.5200, L500.4100, L509.1000, L501.9985, L100.0100, L501.2300, L500.4050 #### [facility] [address] [place], [address] Platelet mean volume (Bld) [Entitic vol] 9.9 fL Normal 6.2-12.[address] [facility] Comment on above: Order Comment: Order Date: 03/18/24 Order Info: [id number] - CBCD Performed By: #### L 501.5200, L500.4100, L509.1000, L501.9985, L100.0100, L501.2300, L500.4050 #### [facility] [address] [place], [address] Platelets (Bld) [#/Vol] 267 10*3/uL Normal 150-[address] [facility] Comment on above: Order Comment: Order Date: 03/18/24 Order Info: 018- - CBCD Performed By: #### L 501.5200, L500.4100, L509.1000, L501.9985, L100.0100, L501.2300, L500.4050 #### [facility] [address] [place], [address] RBC (Bld) [#/Vol] 4.79 10*6/uL Normal 4.2-5.4 [facility] Comment on above: Order Comment: Order Date: 03/18/24 Order Info: 0184-1 - CBCD Performed By: #### L 501.5200, L500.4100, L509.1000, L501.9985, L100.0100, L501.2300, L500.4050 #### [facility] [address] [place], [place], [id number] RDW SD 42.2 fl Normal 35.1-43.[address] [facility] Comment on above: Order Comment: Order Date: 03/18/24 Order Info: 0184- - CBCD Performed By: #### L 501.5200, L500.4100, L509.1000, L501.9985, L100.0100, L501.2300, L500.4050 #### [facility] [address] [place], [place], [id number] WBC (Bld) [#/Vol] 7.4 10*3/uL Normal 4.4-11.0 [facility] Comment on above: Order Comment: Order Date: 03/18/24 Order Info: [id number] - CBCD Performed By: #### L 501.5200, L500.4100, L509.1000, L501.9985, L100.0100, L501.2300, L500.4050 #### [facility] [address] [place], [place], [address] Calculated very low density lipoprotein (VLDL) cholesterol measurementOrdered By: Dwayne Gibson on 06-07-2024 Calculated very low density lipoprotein (VLDL) cholesterol measurement 34 mg/dL [facility] VLDL Cholesterol 34 mg/dL [facility] Carbon dioxide, total [Moles /volume] in Central venous bloodOrdered By: Dwayne Gibson on 06-07-2024 CO2 [Moles/Vol] 22.7 mmol/L 21.0-32.[address] [facility] Chloride assayOrdered By: Sadie Gibson on 06-07-2024 Chloride [Moles/Vol] 103 mmol/L 98-108 [facility] Comprehensive Metabolic Prof ilon 06-07-2024 Albumin [Mass/Vol] 3.9 g/dL Normal 3.4-4.8 [facility] Comment on above: Order Comment: Order Date: 03/18/24 Order Info: [id number] - CMP Order Info: [id number] - LIPID Order Info: 2777-1 - PHOS Order Info: [id number] - MG Performed By: #### L 501.5200, L500.4100, L509.1000, L501.9985, L100.0100, L501.2300, L500.4050 #### [facility] [address] [place], [address] Albumin/Globulin [Mass ratio] 1.3 {ratio} Normal 0.9-2.[address] [facility] Comment on above: Order Comment: Order Date: 03/18/24 Order Info: 785- - CMP Order Info: - LIPID Order Info: 7-1 - PHOS Order Info: [id number] - MG Performed By: #### L 501.5200, L500.4100, L509.1000, L501.9985, L100.0100, L501.2300, L500.4050 #### [facility] [address] [place], [place], [id number] ALK PHOS 85 U/L Normal 35-[address] [facility] Comment on above: Order Comment: Order Date: 03/18/24 Order Info: 07-1 - CMP Order Info: [id number] - LIPID Order Info: [id number] - PHOS Order Info: [id number] - MG Performed By: #### L 501.5200, L500.4100, L509.1000, L501.9985, L100.0100, L501.2300, L500.4050 #### [facility] [address] [place], [address] ALT [Catalytic activity/Vol] 19 U/L Normal <=[address] [facility] Comment on above: Order Comment: Order Date: 03/18/24 Order Info: 785- - CMP Order Info: [id number] - LIPID Order Info: [id number] - PHOS Order Info: [id number] - MG Performed By: #### L 501.5200, L500.4100, L509.1000, L501.9985, L100.0100, L501.2300, L500.4050 #### [facility] [address] [place], [address] AST [Catalytic activity/Vol] 21 U/L Normal <=[address] [facility] Comment on above: Order Comment: Order Date: 03/18/24 Order Info: 785- - CMP Order Info: - LIPID Order Info: [id number] - PHOS Order Info: [id number] - MG Performed By: #### L 501.5200, L500.4100, L509.1000, L501.9985, L100.0100, L501.2300, L500.4050 #### [facility] [address] [place], [address] Bilirubin [Mass/Vol] 0.28 mg/dL Normal 0.00-1.30 [facility] Comment on above: Order Comment: Order Date: 03/18/24 Order Info: 785- - CMP Order Info: [id number] - LIPID Order Info: [id number] - PHOS Order Info: [id number] - MG Performed By: #### L 501.5200, L500.4100, L509.1000, L501.9985, L100.0100, L501.2300, L500.4050 #### [facility] [address] [place], [address] BUN/CRE 17.8 RATIO Normal 10-[address] [facility] Comment on above: Order Comment: Order Date: 03/18/24 Order Info: 785- - CMP Order Info: - LIPID Order Info: [id number] - PHOS Order Info: [id number] - MG Performed By: #### L 501.5200, L500.4100, L509.1000, L501.9985, L100.0100, L501.2300, L500.4050 #### [facility] [address] [place], [address] Calcium [Mass/Vol] 8.8 mg/dL Normal 7.6-11.0 [facility] Comment on above: Order Comment: Order Date: 03/18/24 Order Info: 86-1 - CMP Order Info: [id number] - LIPID Order Info: [id number] - PHOS Order Info: [id number] - MG Performed By: #### L 501.5200, L500.4100, L509.1000, L501.9985, L100.0100, L501.2300, L500.4050 #### [facility] [address] [place], [address] Chloride [Moles/Vol] 103 mmol/L Normal 98-108 [facility] Comment on above: Order Comment: Order Date: 03/18/24 Order Info: 785- - CMP Order Info: [id number] - LIPID Order Info: 277- - PHOS Order Info: [id number] - MG Performed By: #### L 501.5200, L500.4100, L509.1000, L501.9985, L100.0100, L501.2300, L500.4050 #### [facility] [address] [place], [address] CO2 [Moles/Vol] 22.7 mmol/L Normal 21.0-32.[address] [facility] Comment on above: Order Comment: Order Date: 03/18/24 Order Info: 86-1 - CMP Order Info: [id number] - LIPID Order Info: [id number] - PHOS Order Info: [id number] - MG Performed By: #### L 501.5200, L500.4100, L509.1000, L501.9985, L100.0100, L501.2300, L500.4050 #### [facility] [address] [place], [place], [id number] Creatinine [Mass/Vol] 0.94 mg/dL Normal 0.70-1.20 [facility] Comment on above: Order Comment: Order Date: 03/18/24 Order Info: [id number] - CMP Order Info: [id number] - LIPID Order Info: [id number] - PHOS Order Info: [id number] - MG Performed By: #### L 501.5200, L500.4100, L509.1000, L501.9985, L100.0100, L501.2300, L500.4050 #### [facility] [address] [place], [place], [id number] GAP 12 Normal 5-[address] [facility] Comment on above: Order Comment: Order Date: 03/18/24 Order Info: 07- - CMP Order Info: [id number] - LIPID Order Info: 277-1 - PHOS Order Info: [id number] - MG Performed By: #### L 501.5200, L500.4100, L509.1000, L501.9985, L100.0100, L501.2300, L500.4050 #### [facility] [address] [place], [place], [id number] GFR/1.73 sq M.predicted among non-blacks MDRD (S/P/Bld) [Vol rate/Area] 67 mL/min/{1.73_m2} Normal >[address] [facility] Comment on above: Order Comment: Order Date: 03/18/24 Order Info: [id number] - CMP Order Info: [id number] - LIPID Order Info: [id number] - PHOS Order Info: [id number] - MG Result Comment: mL/m in/1.73m2 CKD-EPI Creatinine Equation (2020) Performed By: #### L 501.5200, L500.4100, L509.1000, L501.9985, L100.0100, L501.2300, L500.4050 #### [facility] [address] [place], [address] Globulin (S) [Mass/Vol] 3.1 g/dL Normal 2.2-4.[address] [facility] Comment on above: Order Comment: Order Date: 03/18/24 Order Info: 785-1 - CMP Order Info: [id number] - LIPID Order Info: [id number]- - PHOS Order Info: [id number] - MG Performed By: #### L 501.5200, L500.4100, L509.1000, L501.9985, L100.0100, L501.2300, L500.4050 #### [facility] [address] [place], [address] Glucose [Mass/Vol] 113 mg/dL High 70-99 [facility] Comment on above: Order Comment: Order Date: 03/18/24 Order Info: 785- - CMP Order Info: [id number] - LIPID Order Info: [id number] - PHOS Order Info: [id number] - MG Performed By: #### L 501.5200, L500.4100, L509.1000, L501.9985, L100.0100, L501.2300, L500.4050 #### [facility] [address] [place], [address] Potassium [Moles/Vol] 4.1 mmol/L Normal 3.3-5.1 [facility] Comment on above: Order Comment: Order Date: 03/18/24 Order Info: 785- - CMP Order Info: [id number] - LIPID Order Info: [id number] - PHOS Order Info: [id number] - MG Performed By: #### L 501.5200, L500.4100, L509.1000, L501.9985, L100.0100, L501.2300, L500.4050 #### [facility] [address] [place], [address] Sodium [Moles/Vol] 138 mmol/L Normal 133-145 [facility] Comment on above: Order Comment: Order Date: 03/18/24 Order Info: 07- - CMP Order Info: [id number] - LIPID Order Info: [id number] - PHOS Order Info: [id number] - MG Performed By: #### L 501.5200, L500.4100, L509.1000, L501.9985, L100.0100, L501.2300, L500.4050 #### [facility] [address] [place], [address] T PROT 7.0 g/dL Normal 5.9-8.[address] [facility] Comment on above: Order Comment: Order Date: 03/18/24 Order Info: [id number] - CMP Order Info: [id number] - LIPID Order Info: [id number] - PHOS Order Info: [id number] - MG Performed By: #### L 501.5200, L500.4100, L509.1000, L501.9985, L100.0100, L501.2300, L500.4050 #### [facility] [address] [place], [place], [id number] Urea nitrogen [Mass/Vol] 17 mg/dL Normal 4-[address] [facility] Comment on above: Order Comment: Order Date: 03/18/24 Order Info: 0786 - CMP Order Info: [id number] - LIPID Order Info: [id number] - PHOS Order Info: [id number] - MG Performed By: #### L 501.5200, L500.4100, L509.1000, L501.9985, L100.0100, L501.2300, L500.4050 #### [facility] [address] [place], [address] Creatinine Unsp time (U) [Ma ss/Vol]Ordered By: Dwayne Gibson on 06-07-2024 Creatinine (U) [Mass/Vol] 13.90 mg/dL Low 28-217 [facility] Eosinophil percentageOrdered By: Dwayne Gibson on 06-07-2024 Eosinophils/100 WBC (Bld) 3.1 % 0-[address] [facility] Epithelial cells.squamous LM Ql (Urine sed)Ordered By: Dwayne Gibson on 06-07-2024 Epithelial cells.squamous LM.HPF (Urine sed) [#/Area] 0 /[HPF] 5-[address] [facility] Erythrocyte distribution wid th ratioOrdered By: Dwayne Gibson on 06-07-2024 Erythrocyte distribution width (RBC) [Ratio] 13.0 % 11.6-14.[address] [facility] Erythrocyte distribution wid th standard deviationOrdered By: Dwayne Gibson on 06-07-2024 Erythrocyte distribution width (RBC) [Entitic vol] 42.2 fL 35.1-43.[address] [facility] Erythrocyte distribution width (RBC) [Ratio] 42.2 fl 35.1-43.[address] [facility] GFR/1.73 sq M.predicted tamara g non-blacks MDRD (S/P/Bld) [Vol rate/Area]Ordered By: Dwayne Gibson on 06-07-2024 Estimated GFR (MDRD) Non-Af Amer 67 >[address] [facility] Comment on above: mL/min/1.73m2 CKD-EP I Creatinine Equation (2020) Glomerular filtration rate ( GFR) estimation/1.73 sq m using serum, plasma, or whole bOrdered By: Dwayne Gibson on 06-07-2024 GFR/1.73 sq M.predicted among non-blacks MDRD (S/P/Bld) [Vol rate/Area] 67 mL/min/{1.73_m2} >[address] [facility] Comment on above: mL/min/1.73m2 CKD-EP I Creatinine Equation (2020) Glucose Ql (U)Ordered By: Sadie Gibson on 06-07-2024 Urine Glucose (UA) Normal mg/dl Normal [facility] Hematocrit Auto (Bld) [Volum e fraction]Ordered By: Dwayne Gibson on 06-07-2024 Hematocrit (Bld) [Volume fraction] 42.3 % 37-[address] [facility] Hemoglobin A1con 06-07-2024 HbA1c (Bld) [Mass fraction] 6.0 % Normal <=5.[address] [facility] Comment on above: Order Comment: Order Date: 03/18/24 Order Info: [id number] - A1C Performed By: #### L 501.5200, L500.4100, L509.1000, L501.9985, L100.0100, L501.2300, L500.4050 #### [facility] [address] [place], [place], [id number] Hemoglobin A1c percentageOrd ered By: Dwayne Gibson on 06-07-2024 HbA1c (Bld) [Mass fraction] 6.0 % >5.[address] [facility] Hemoglobin measurementOrdere d By: Dwayne Gibson on 06-07-2024 Hemoglobin (Bld) [Mass/Vol] 13.8 g/dL 12.0-15.[address] [facility] Immature granulocytes/100 WB C Auto (Bld)Ordered By: Dwayne Gibson on 06-07-2024 Immature granulocytes/100 WBC (Bld) 0.400 % 0.0-0.[address] [facility] Comment on above: IG% - Immature Granu locytes (promyelocytes, myelocytes and metamyelocytes) > 1% indicates that a LEFT SHIFT is Present. Ketones Test strip Ql (U)Ord ered By: Dwayne Gibson on 06-07-2024 Ketones Ql (U) Negative Negative [facility] L506.1001on 06-07-2024 Vitamin D 25-OH 15.8 ng/mL Low 30-[address] [facility] Comment on above: Order Comment: Order Date: 09/16/24 Order Info: [id number] - CMP Order Info: [id number] - LIPID Result Comment: Dimple min D Status Deficiency: <20 ng/mL (50nmol/L) Insufficiency: 20-30 ng/mL (50-75 nmol/L) Sufficiency: 30-100 ng/mL (75-250 nmol/L) Toxicity: >100 ng/mL (>250 nmol/L) Performed By: #### L 506.1001 #### [facility] [address] [place], [place], [address] LDL calc ser/plasOrdered By: Dwayne Gibson on 06-07-2024 Cholesterol in LDL [Mass/Vol] 63 mg/dL [facility] Comment on above: Dhfonjzurb=420-426 m g/dL & Higher Cxgv=596 mg/dL or greater LDL Cholesterol, Calculated 63 mg/dL [facility] Comment on above: Eutfimdafw=286-394 m g/dL & Higher Xsip=570 mg/dL or greater Laboratory - Chemistry and C hemistry - challengeOrdered By: Dwayne Gibson on 06-07-2024 AST [Catalytic activity/Vol] 21 U/L <[address] [facility] Lipid Profileon 06-07-2024 CHOL:HDL 2.[address] [facility] Comment on above: Order Comment: Order Date: 03/18/24 Order Info: [id number] - CMP Order Info: [id number] - LIPID Order Info: [id number]- - PHOS Order Info: [id number] - MG Performed By: #### L 501.5200, L500.4100, L509.1000, L501.9985, L100.0100, L501.2300, L500.4050 #### [facility] [address] [place], [address] Cholesterol [Mass/Vol] 160 mg/dL Normal <=200 [facility] Comment on above: Order Comment: Order Date: 03/18/24 Order Info: [id number] - CMP Order Info: [id number] - LIPID Order Info: [id number]- - PHOS Order Info: [id number] - MG Result Comment: Chol esterol level, Desirable <200 mg/dL Borderline high cholesterol 200-239 mg/dL High cholesterol >=240 mg/dL Recommendations of the NCEP Adult Treatment Panel for the following risk-cutoff thresholds for the [place] population. Performed By: #### L 501.5200, L500.4100, L509.1000, L501.9985, L100.0100, L501.2300, L500.4050 #### [facility] [address] [place], [address] Cholesterol in HDL [Mass/Vol] 63 mg/dL Normal [facility] Comment on above: Order Comment: Order Date: 03/18/24 Order Info: [id number]- - CMP Order Info: - LIPID Order Info: [id number] - PHOS Order Info: [id number] - MG Result Comment: Viviana onal Cholesterol Education Program (NCEP) guidelines: <40 mg/dL: Low HDL-cholesterol (major risk factor for CHD) >= 60 mg/dL: High HDL-cholesterol (negative risk factor for CHD) HDL-cholesterol is affected by a number of factors, e.g. smoking, exercise, hormones, sex and age. Performed By: #### L 501.5200, L500.4100, L509.1000, L501.9985, L100.0100, L501.2300, L500.4050 #### [facility] [address] [place], [address] (299) Cholesterol in LDL [Mass/Vol] 63 mg/dL Normal [facility] Comment on above: Order Comment: Order Date: 03/18/24 Order Info: 07 - CMP Order Info: - LIPID Order Info: [id number] - PHOS Order Info: [id number] - MG Result Comment: Bord jkrbzb=911-004 mg/dL Higher Aoth=033 mg/dL or greater Performed By: #### L 501.5200, L500.4100, L509.1000, L501.9985, L100.0100, L501.2300, L500.4050 #### [facility] [address] [place], [place], [phone] (819) Cholesterol in VLDL [Mass/Vol] 34 mg/dL Normal 5-[address] [facility] Comment on above: Order Comment: Order Date: 03/18/24 Order Info: 0786 - CMP Order Info: - LIPID Order Info: [id number] - PHOS Order Info: [id number] - MG Performed By: #### L 501.5200, L500.4100, L509.1000, L501.9985, L100.0100, L501.2300, L500.4050 #### [facility] [address] [place], [place], [address] Triglyceride [Mass/Vol] 171 mg/dL Normal [facility] Comment on above: Order Comment: Order Date: 03/18/24 Order Info: 0786 - CMP Order Info: [id number] - LIPID Order Info: [id number] - PHOS Order Info: [id number] - MG Result Comment: The drugs N-Acetylcysteine and Metamizole may falsely depress this assay. Normal range: <150 mg/dL Borderline High: 150-199 mg/dL High: 200-499 mg/dL Very High: >500 mg/dL Performed By: #### L 501.5200, L500.4100, L509.1000, L501.9985, L100.0100, L501.2300, L500.4050 #### [facility] [address] [place], [place], [address] Lymphocytes Auto (Unsp spec) [#/Vol]Ordered By: Dwayne Gibson on 06-07-2024 Lymphocytes (Bld) [#/Vol] 1.98 10*3/uL 0.83-4.[address] [facility] Lymphocytes/100 WBC Auto (Un sp spec)Ordered By: Dwayne Gibson on 06-07-2024 Lymphocytes/100 WBC (Bld) 26.9 % 19-[address] [facility] MCV (mean corpuscular volume ) determinationOrdered By: Dwayne Gibson on 06-07-2024 MCV (RBC) [Entitic vol] 88.3 fL 81-[address] [facility] Magnesiumon 06-07-2024 Magnesium [Mass/Vol] 1.4 mg/dL Low 1.5-2.2 [facility] Comment on above: Order Comment: Order Date: 03/18/24 Order Info: 0786- - CMP Order Info: [id number] - LIPID Order Info: [id number] - PHOS Order Info: - MG Performed By: #### L 501.5200, L500.4100, L509.1000, L501.9985, L100.0100, L501.2300, L500.4050 #### [facility] [address] [place], [address] Magnesium (Unsp spec) [Mass/ Vol]Ordered By: Dwayne Gibson on 06-07-2024 Magnesium [Mass/Vol] 1.4 mg/dL Low 1.5-2.2 [facility] Magnesium measurement (mass/ volume)Ordered By: Dwayne Gibson on 06-07-2024 Magnesium (Unsp spec) [Mass/Vol] 1.4 mg/dL Low 1.5-2.[address] [facility] Mean corpuscular hemoglobin (MCH) determinationOrdered By: Dwayne Gibson on 06-07-2024 MCH (RBC) [Entitic mass] 28.8 pg 27.0-32.[address] [facility] Mean corpuscular hemoglobin concentration (MCHC) determinationOrdered By: Dwayne Gibson on 06-07-2024 MCHC (RBC) [Mass/Vol] 32.6 g/dL 32-36 [facility] Mean platelet volume determi nationOrdered By: Dwayne Gibson on 06-07-2024 Platelet mean volume (Bld) [Entitic vol] 9.9 fL 6.2-12.[address] [facility] Microscopic analysis of urin e for red blood cells (RBC)Ordered By: Dwayne Gibson on 06-07-2024 Microscopic analysis of urine for red blood cells (RBC) 0-5 SEEN /hpf 0-[address] [facility] Urine RBC 0-5 SEEN /hpf 0-[address] [facility] Monocyte percentageOrdered B y: Dwayne Gibson on 06-07-2024 Monocytes/100 WBC (Bld) 4.8 % 0-[address] [facility] Mucus LM Ql (Urine sed)Order ed By: Dwayne Gibson on 06-07-2024 Mucus Ql (Urine sed) 0 SEEN /hpf [facility] Neutrophil percentageOrdered By: Dwayne Gibson on 06-07-2024 Neutrophils/100 WBC (Bld) 64.3 % 47-[address] [facility] Nitrite Test strip Ql (U)Ord ered By: Dwayne Gibson on 06-07-2024 Nitrite Ql (U) Negative Negative [facility] Nucleated red blood cell per centageOrdered By: Dwayne Gibson on 06-07-2024 Nucleated RBC/100 WBC (Bld) [Ratio] 0 % 0-[address] [facility] PTH intactOrdered By: Dwayne ricks on 06-07-2024 Parathyroid Hormone (Intact) 57 pg/mL [facility] PTHINon 06-07-2024 PTH 57 pg/mL Normal [facility] Comment on above: Order Comment: Order Date: 03/18/24 Order Info: [id number] - PTHIN Performed By: #### L 501.5200, L500.4100, L509.1000, L501.9985, L100.0100, L501.2300, L500.4050 #### [facility] [address] [place], [address] Phosphoruson 06-07-2024 Phosphate [Mass/Vol] 2.8 mg/dL Normal 2.7-4.5 [facility] Comment on above: Order Comment: Order Date: 03/18/24 Order Info: [id number] - CMP Order Info: [id number] - LIPID Order Info: [id number] - PHOS Order Info: [id number] - MG Performed By: #### L 501.5200, L500.4100, L509.1000, L501.9985, L100.0100, L501.2300, L500.4050 #### [facility] [address] [place], [address] Platelet countOrdered By: Sadie Gibson on 06-07-2024 Platelets (Bld) [#/Vol] 267 10*3/uL 150-[address] [facility] Potassium (Unsp spec) [Mass/ Vol]Ordered By: Dwayne Gibson on 06-07-2024 Potassium [Moles/Vol] 4.1 mmol/L 3.3-5.1 [facility] Potassium measurement (mass/ volume)Ordered By: Dwayne Gibson on 06-07-2024 Potassium (Unsp spec) [Mass/Vol] 4.1 mmol/L 3.3-5.[address] [facility] Protein Test strip Ql (U)Ord ered By: Dwayne Gibson on 06-07-2024 Protein Ql (U) 30 mg/dl High Negative [facility] Protein+Creatinine Ratio,Uri neon 06-07-2024 PROT:CRE RATIO 1662 mg/g CRE High 0-[address] [facility] Comment on above: Performed By: #### L 506.1001 #### [facility] [address] [place], [address] Protein (U) [Mass/Vol] 23.1 mg/dL High 0.0-12.0 [facility] Comment on above: Performed By: #### L 506.1001 #### [facility] [address] [place], [address] UR CREAT 13.90 mg/dL Low 28-[address] [facility] Comment on above: Performed By: #### L 506.1001 #### [facility] [address] [place], [address] Protein/Creatinine (U) [Mass ratio]Ordered By: Dwayne Gibson on 06-07-2024 Urine Protein/Creatinine Ratio 1662 mg/g CRE High 0-[address] [facility] RBC Auto (Bld) [#/Vol]Ordere d By: Dwayne Gibson on 06-07-2024 RBC (Bld) [#/Vol] 4.79 10*6/uL 4.2-5.4 [facility] Random urine creatinine julee urement (mass/volume)Ordered By: Dwayne Gibson on 06-07-2024 Creatinine Unsp time (U) [Mass/Vol] 13.90 mg/dL Low -[address] [facility] Screening total cholesterol/ high density lipoprotein (HDL) cholesterol ratioOrdered By: Dwayne Gibson on 06-07-2024 Cholesterol.total/Chol esterol in HDL [Mass ratio] 2.56 {ratio} [facility] Serum creatinine measurement (mass/volume)Ordered By: Dwayne Gibson on 06-07-2024 Creatinine [Mass/Vol] 0.94 mg/dL 0.70-1.20 [facility] Serum globulin measurementOr dered By: Dwayne Gibson on 06-07-2024 Globulin (S) [Mass/Vol] 3.1 g/dL 2.2-4.[address] [facility] Serum glucose measurement (m ass/volume)Ordered By: Dwayne Gibson on 06-07-2024 Glucose [Mass/Vol] 113 mg/dL High 70-99 [facility] Serum or plasma alanine salmon otransferase (ALT) measurementOrdered By: Dwayne Gibson on 06-07-2024 ALT [Catalytic activity/Vol] 19 U/L <[address] [facility] Serum or plasma albumin julee urement (mass/volume)Ordered By: Dwayne Gibson on 06-07-2024 Albumin [Mass/Vol] 3.9 g/dL 3.4-4.8 [facility] Serum or plasma albumin/glob ulin mass ratioOrdered By: Dwayne Gibson on 06-07-2024 Albumin/Globulin [Mass ratio] 1.3 {ratio} 0.9-2.[address] [facility] Serum or plasma alkaline wagner sphatase measurementOrdered By: Dwayne Gibson on 06-07-2024 ALP [Catalytic activity/Vol] 85 U/L 35-[address] [facility] Serum or plasma calcium julee urement (mass/volume)Ordered By: Dwayne Gibson on 06-07-2024 Calcium [Mass/Vol] 8.8 mg/dL 7.6-11.0 [facility] Serum or plasma cholesterol in HDL measurement (mass/volume)Ordered By: Dwayne Gibson on 06-07-2024 Cholesterol in HDL [Mass/Vol] 63 mg/dL >[address] [facility] Comment on above: National Cholesterol Education Program (NCEP) guidelines:<40 mg/dL: Low HDL-cholesterol (major risk factor for CHD)>= 60 mg/dL: High HDL-cholesterol (negative risk factor for CHD)HDL-cholesterol is affected by a number of factors, e.g. smoking, exercise, hormones, sex and age. Serum or plasma cholesterol measurement (mass/volume)Ordered By: Dwayne Gibson on 06-07-2024 Cholesterol [Mass/Vol] 160 mg/dL <201 [facility] Comment on above: Cholesterol level, D esirable <200 mg/dLBorderline high cholesterol 200-239 mg/dLHigh cholesterol >=240 mg/dLRecommendations of the NCEP Adult Treatment Panel for the following risk-cutoff thresholds for the [place] population. Serum or plasma urea nitroge n measurement (mass/volume)Ordered By: Dwayne Gibson on 06-07-2024 Urea nitrogen [Mass/Vol] 17 mg/dL 4-[address] [facility] Serum phosphorus measurement Ordered By: Dwayne Gibson on 06-07-2024 Phosphorus Level 2.8 mg/dL 2.7-4.[address] [facility] Sodium levelOrdered By: Dwayne Gibson on 06-07-2024 Sodium [Moles/Vol] 138 mmol/L 133-145 [facility] Squamous epithelial cells de tection in urine sediment by light microscopyOrdered By: Dwayne Gibson on 06-07-2024 Epithelial cells.squamous LM Ql (Urine sed) 0-5 SEEN /hpf -[address] [facility] Total proteinOrdered By: Efrain Gibson on 06-07-2024 Protein [Mass/Vol] 7.0 g/dL 5.9-8.4 [facility] Triglycerides measurementOrd ered By: Dwayne Gibson on 06-07-2024 Triglyceride [Mass/Vol] 171 mg/dL <[address] [facility] Comment on above: The drugs N-Acetylcy steine and Metamizole may falsely depress this assay. Normal range: <150 mg/dLBorderline High: 150-199 mg/dLHigh: 200-499 mg/dLVery High: >500 mg/dL Urinalysis, Completeon 06-07 EPI,SQUAMOUS 0-5 SEEN Normal 5-[address] [facility] Comment on above: Order Comment: Order Date: 09/16/24 Order Info: [id number] - CMP Order Info: [id number] - LIPID Performed By: #### L 506.1001 #### [facility] [address] [place], [place], [address] RBC 0-5 SEEN Normal 0-[address] [facility] Comment on above: Order Comment: Order Date: 09/16/24 Order Info: [id number] - CMP Order Info: [id number] - LIPID Performed By: #### L 506.1001 #### [facility] [address] [place], [address] BACTERIA 0 SEEN Normal None Seen [facility] Comment on above: Order Comment: Order Date: 09/16/24 Order Info: [id number] - CMP Order Info: [id number] - LIPID Performed By: #### L 506.1001 #### [facility] [address] [place], [address] Mucus Ql (Urine sed) 0 SEEN Normal [facility] Comment on above: Order Comment: Order Date: 09/16/24 Order Info: [id number] - CMP Order Info: [id number] - LIPID Performed By: #### L [id number] #### [facility] [address] [place], [address] WBC 0 SEEN Normal 0-[address] [facility] Comment on above: Order Comment: Order Date: 09/16/24 Order Info: [id number] - CMP Order Info: [id number] - LIPID Performed By: #### L [id number] #### [facility] [address] [place], [address] Urine blood detectionOrdered By: Dwayne Gibson on 06-07-2024 Urine Occult Blood 25 /ul High Negative [facility] Urine clarityOrdered By: Efrain Gibson on 06-07-2024 Clarity (U) Clear Clear [facility] Urine color determinationOrd ered By: Dwayne Gibson on 06-07-2024 Color (U) Straw Yellow [facility] Urine glucose detectionOrder ed By: Dwayne Gibson on 06-07-2024 Glucose Ql (U) Normal mg/dl Normal [facility] Urine leukocyte esterase det ection by dipstickOrdered By: Dwayne Gibson on 06-07-2024 Leukocyte esterase Test strip Ql (U) Negative Negative [facility] Urine pHOrdered By: Dwayne mejía on 06-07-2024 pH (U) 7.0 [pH] 5.0 - 8.[address] [facility] Urine protein measurement (m ass/volume)Ordered By: Dwayne Gibson on 06-07-2024 Protein (U) [Mass/Vol] 23.1 mg/dL High 0.0-12.0 [facility] Urine protein/creatinine mas s ratioOrdered By: Dwayne Gibson on 06-07-2024 Protein/Creatinine (U) [Mass ratio] 1662 mg/g CRE High 0-[address] [facility] Urine sediment bacteria coun t by microscopy (number/high power field)Ordered By: Dwayne Gibson on 06-07-2024 Bacteria LM.HPF (Urine sed) [#/Area] 0 /[HPF] None Seen [facility] Urine specific gravity measu rementOrdered By: Dwayne Gibson on 06-07-2024 Specific gravity (U) [Rel density] 1.005 1.002-1.[address] [facility] Urine urobilinogen measureme ntOrdered By: Dwayne Gibson on 06-07-2024 Urobilinogen Ql (U) Normal mg/dl Normal [facility] Urobilinogen Ql (U)Ordered B y: Dwayne Gibson on 06-07-2024 Urine Urobilinogen Normal mg/dl Normal [facility] Vitamin D, 25-hydroxyOrdered By: Dwayne Gibson on 06-07-2024 Vitamin D 25-Hydroxy 15.8 ng/mL Low 30-100 [facility] Comment on above: Vitamin D StatusDefi ciency: <20 ng/mL (50nmol/L)Insufficiency: 20-30 ng/mL (50-75 nmol/L)Sufficiency: 30-100 ng/mL (75-250 nmol/L)Toxicity: >100 ng/mL (>250 nmol/L) White blood cell (WBC) count Ordered By: Dwayne Gibson on 06-07-2024 WBC (Bld) [#/Vol] 7.4 10*3/uL 4.4-11.0 [facility] White blood cell countOrdere d By: Dwayne Gibson on 06-07-2024 Urine WBC 0 SEEN /hpf 0-[address] [facility] White blood cell count 0 SEEN /hpf 0-5 [facility] Basic Metabolic Profile (BMP )on 03-14-2024 BUN/CRE 18.3 RATIO Normal 10-[address] [facility] Comment on above: Order Comment: Order Date: 09/16/24 Order Info: [id number]- - CMP Order Info: [id number] - LIPID Performed By: #### L [id number] #### [facility] [address] [place], [address] CA,Total 9.8 mg/dL Normal 8.5-10.[address] [facility] Comment on above: Order Comment: Order Date: 09/16/24 Order Info: [id number]- - CMP Order Info: [id number] - LIPID Performed By: #### L 506.1001 #### [facility] [address] [place], [address] Chloride [Moles/Vol] 104 mmol/L Normal 98-107 [facility] Comment on above: Order Comment: Order Date: 09/16/24 Order Info: [id number]- - CMP Order Info: [id number] - LIPID Performed By: #### L [id number] #### [facility] [address] [place], [place], [address] CO2 [Moles/Vol] 27.0 mmol/L Normal 21.0-32.[address] [facility] Comment on above: Order Comment: Order Date: 09/16/24 Order Info: [id number]- - CMP Order Info: [id number] - LIPID Performed By: #### L [id number] #### [facility] [address] [place], [address] Creatinine [Mass/Vol] 0.98 mg/dL Normal 0.55-1.02 [facility] Comment on above: Order Comment: Order Date: 09/16/24 Order Info: 07-1 - CMP Order Info: [id number] - LIPID Result Comment: The validity of the calculated GFR GFRAA in patients over 70 years has not been determined. Clinical correlation is essential. Performed By: #### L 506.1001 #### [facility] [address] [place], [address] EST GFR - AA 73 mL/min Normal >[address] [facility] Comment on above: Order Comment: Order Date: 09/16/24 Order Info: [id number] - CMP Order Info: [id number] - LIPID Result Comment: Afri can [place] GFR Calc Performed By: #### L 506.1001 #### [facility] [address] [place], [address] GAP 7 Normal 5-[address] [facility] Comment on above: Order Comment: Order Date: 09/16/24 Order Info: [id number]- - CMP Order Info: [id number] - LIPID Performed By: #### L [id number] #### [facility] [address] [place], [address] GFR/1.73 sq M.predicted among non-blacks MDRD (S/P/Bld) [Vol rate/Area] 60 mL/min/{1.73_m2} Normal >[address] [facility] Comment on above: Order Comment: Order Date: 09/16/24 Order Info: [id number] - CMP Order Info: [id number] - LIPID Result Comment: Non- GFR Calc Performed By: #### L 506.1001 #### [facility] [address] [place], [address] Glucose [Mass/Vol] 90 mg/dL Normal 74-106 [facility] Comment on above: Order Comment: Order Date: 09/16/24 Order Info: [id number] - [facility] Order Info: [id number] - LIPID Performed By: #### L [id number] #### [facility] [address] [place], [address] Potassium [Moles/Vol] 3.8 mmol/L Normal 3.5-5.1 [facility] Comment on above: Order Comment: Order Date: 09/16/24 Order Info: [id number]- - CMP Order Info: [id number] - LIPID Performed By: #### L [id number] #### [facility] [address] [place], [address] Sodium [Moles/Vol] 138 mmol/L Normal 136-145 [facility] Comment on above: Order Comment: Order Date: 09/16/24 Order Info: [id number] - CMP Order Info: [id number] - LIPID Performed By: #### L 506.1001 #### [facility] [address] [place], [place], [address] Urea nitrogen [Mass/Vol] 18 mg/dL Normal 7-[address] [facility] Comment on above: Order Comment: Order Date: 09/16/24 Order Info: [id number] - CMP Order Info: [id number] - LIPID Performed By: #### L 506.1001 #### [facility] [address] [place], [place], [address] Blood urea nitrogen (BUN)/cr eatinine ratioOrdered By: Dwayne Gibson on 03-14-2024 Urea nitrogen/Creatinine [Mass ratio] 18.3 mg/mg 10-[address] [facility] Carbon dioxide measurementOr dered By: Dwayne Gibson on 03-14-2024 CO2 [Moles/Vol] 27.0 mmol/L 21.0-32.[address] [facility] Chloride measurementOrdered By: Dwayne Gibson on 03-14-2024 Chloride [Moles/Vol] 104 mmol/L 98-107 [facility] Estimated glomerular filtrat ion rate (GFR) AmericanOrdered By: Dwayne Gibson on 03-14-2024 Estimated GFR (MDRD) Amer 73 mL/min >[address] [facility] Comment on above: GFR Calc Glomerular filtration rate ( GFR) estimationOrdered By: Dwayne Gibson on 03-14-2024 Estimated GFR (MDRD) Non-Af Amer 60 mL/min >[address] [facility] Comment on above: Non- GFR Calc Glucose measurementOrdered B y: Dwayne Gibson on 03-14-2024 Glucose [Mass/Vol] 90 mg/dL 74-106 [facility] Potassium measurementOrdered By: Dwayne Gibson on 03-14-2024 Potassium [Moles/Vol] 3.8 mmol/L 3.5-5.1 [facility] Serum anion gap measurementO rdered By: Dwayne Gibson on 03-14-2024 Anion gap [Moles/Vol] 7 mmol/L 5-15 [facility] Serum or plasma calcium julee urement (mass/volume)Ordered By: Dwayne Gibson on 03-14-2024 Calcium [Mass/Vol] 9.8 mg/dL 8.5-10.1 [facility] Serum or plasma creatinine m easurement (mass/volume)Ordered By: Dwayne Gibson on 03-14-2024 Creatinine [Mass/Vol] 0.98 mg/dL 0.55-1.02 [facility] Comment on above: The validity of the calculated GFR & GFRAA in patients over 70 years has not been determined. Clinical correlation is essential. Serum or plasma urea nitroge n measurement (mass/volume)Ordered By: Dwayne Gibson on 03-14-2024 Urea nitrogen [Mass/Vol] 18 mg/dL 7-[address] [facility] Sodium levelOrdered By: Dwayne Gibson on 03-14-2024 Sodium [Moles/Vol] 138 mmol/L 136-145 [facility] Absolute lymphocyte countOrd ered By: Dwayne Gibson on 07-30-2023 Lymphocytes Auto (Unsp spec) [#/Vol] 2.39 10*3/uL 0.83-4.[address] [facility] Automated lymphocyte count a s percentage of total leukocytesOrdered By: Dwayne Gibson on 07-30-2023 Lymphocytes/100 WBC Auto (Unsp spec) 25.3 % 19-[address] [facility] Basophil percentageOrdered B y: Dwayne Gibson on 07-30-2023 Basophil percentage 0-5 SEEN /hpf 0-5 [facility] Basophil percentage 2.5 mg/dL 2.5-4.9 [facility] Basophils/100 WBC (Bld) 0.7 % 0-[address] [facility] Bilirubin [Mass/Vol] 0.40 mg/dL 0.20-1.00 [facility] Comment on above: For patients on eltr ombopag therapy, use of Dimension [place] TBIL is not recommended. Chloride [Moles/Vol] 110 mmol/L 98-107 [facility] Cholesterol [Mass/Vol] 152 mg/dL <200 [facility] Comment on above: <200 mg/dL Desirable 200-240 mg/dL Borderline >240 mg/dL High Risk Eosinophils/100 WBC (Bld) 1.9 % 0-[address] [facility] Glucose [Mass/Vol] 90 mg/dL 74-106 [facility] Hemoglobin (Bld) [Mass/Vol] 14.1 g/dL 12.0-15.[address] [facility] Monocytes/100 WBC (Bld) 5.3 % 0-[address] [facility] Neutrophils (Bld) [#/Vol] 6.3 10*3/uL 2.0-7.[address] [facility] Neutrophils/100 WBC (Bld) 66.4 % 47-[address] [facility] Potassium [Moles/Vol] 3.8 mmol/L 3.5-5.1 [facility] Protein [Mass/Vol] 7.4 g/dL 6.4-8.2 [facility] Sodium [Moles/Vol] 140 mmol/L 136-145 [facility] Triglyceride [Mass/Vol] 149 mg/dL <[address] [facility] Comment on above: The drugs N-Acetylcy steine and Metamizole may falsely depress this assay.Serum Triglycerides Reference Interval Normal <150 mg/dL Borderline high 150 - 199 mg/dL High 200 - 499 mg/dL Very High > or = 500 mg/dL WBC (Bld) [#/Vol] 9.4 10*3/uL 4.4-11.0 [facility] Bilirubin Test strip Ql (U)O rdered By: Dwayne Gibson on 07-30-2023 Bilirubin Ql (U) Negative Negative [facility] Determination of erythrocyte mean corpuscular volume (MCV)Ordered By: Dwayne Gibson on 07-30-2023 MCV (RBC) [Entitic vol] 89.6 fL 81-[address] [facility] Erythrocyte distribution wid th ratioOrdered By: Dwayne Gibson on 07-30-2023 Erythrocyte distribution width (RBC) [Ratio] 13.1 % 11.6-14.[address] [facility] Erythrocyte distribution wid th standard deviationOrdered By: Dwayne Gibson on 07-30-2023 Erythrocyte distribution width (RBC) [Entitic vol] 42.8 fL 35.1-43.[address] [facility] Hematocrit Auto (Bld) [Volum e fraction]Ordered By: Dwayne Gibson on 07-30-2023 Hematocrit (Bld) [Volume fraction] 42.9 % 37-[address] [facility] Immature granulocytes/100 WB C Auto (Bld)Ordered By: Dwayne Gibson on 07-30-2023 Immature granulocytes/100 WBC (Bld) 0.400 % 0.0-0.[address] [facility] Comment on above: IG% - Immature Granu locytes (promyelocytes, myelocytes and metamyelocytes) > 1% indicates that a LEFT SHIFT is Present. Ketones Test strip Ql (U)Ord ered By: Dwayne Gibson on 07-30-2023 Ketones Ql (U) Negative Negative [facility] - Chemistry and C hemistry - challengeOrdered By: Dwayne Gibson on 07-30-2023 Albumin/Globulin [Mass ratio] 1.1 {ratio} 0.9-2.[address] [facility] ALP [Catalytic activity/Vol] 71 U/L 45-[address] [facility] ALT [Catalytic activity/Vol] 36 U/L 13-[address] [facility] Cholesterol in HDL [Mass/Vol] 69 mg/dL >[address] [facility] Comment on above: The drugs N-Acetylcy steine and Metamizole may falsely depress this assay. Reference Range HDL <40 mg/dL Low HDL Cholesterol HDL >or= 60 mg/dL High HDL Cholesterol Cholesterol in LDL [Mass/Vol] 53 mg/dL 0-[address] [facility] CO2 [Moles/Vol] 24.0 mmol/L 21.0-32.[address] [facility] Globulin (S) [Mass/Vol] 3.5 g/dL 2.2-4.[address] [facility] Urea nitrogen/Creatinine [Mass ratio] 17.3 mg/mg 10-[address] [facility] - Hematology and Cell countsOrdered By: Dwayne Gibson on 07-30-2023 MCH (RBC) [Entitic mass] 29.4 pg 27.0-32.[address] [facility] MCHC (RBC) [Mass/Vol] 32.9 g/dL 32-36 [facility] Nucleated RBC/100 WBC (Bld) [Ratio] 0 % 0-[address] [facility] Platelet mean volume (Bld) [Entitic vol] 9.8 fL 6.2-12.[address] [facility] Platelets (Bld) [#/Vol] 279 10*3/uL 150-[address] [facility] Mucus LM Ql (Urine sed)Order ed By: Dwayne Gibson on 07-30-2023 Mucus Ql (Urine sed) 0 SEEN /hpf [facility] Nitrite Test strip Ql (U)Ord ered By: Dwayne Gibson on 07-30-2023 Nitrite Ql (U) Negative Negative [facility] No Panel InformationOrdered By: Dwayne Gibson on 07-30-2023 Urine RBC 0 SEEN /hpf 0-[address] [facility] Estimated GFR (MDRD) Amer 69 mL/min >[address] [facility] Comment on above: GFR Calc Estimated GFR (MDRD) Non-Af Amer 57 mL/min >[address] [facility] Comment on above: Non- GFR Calc Parathyroid Hormone (Intact) 85.2 pg/mL 18.4-80.[address] [facility] Vitamin D 25-Hydroxy 29.4 ng/mL [facility] Comment on above: Vitamin D 25(OH) Sta tus Range Deficiency <20 ng/mL (50nmol/L) Insufficiency 20 - 30 ng/mL (50 - 75 nmol/L) Sufficiency 30 - 100 ng/mL (75 - 250 nmol/L) Toxicity >100 ng/mL (>250 nmol/L) VLDL Cholesterol 30 mg/dL 5-[address] [facility] Protein Test strip Ql (U)Ord ered By: Dwayne Gibson on 07-30-2023 Protein Ql (U) 100 mg/dl Negative [facility] RBC Auto (Bld) [#/Vol]Ordere d By: Dwayne Gibson on 07-30-2023 RBC (Bld) [#/Vol] 4.79 10*6/uL 4.2-5.4 [facility] Serum or plasma calcium julee urement (mass/volume)Ordered By: Dwayne Gibson on 07-30-2023 Calcium [Mass/Vol] 9.3 mg/dL 8.5-10.1 [facility] Serum or plasma creatinine m easurement (mass/volume)Ordered By: Dwayne Gibson on 07-30-2023 Creatinine [Mass/Vol] 1.04 mg/dL 0.55-1.02 [facility] Comment on above: The validity of the calculated GFR & GFRAA in patients over 70 years has not been determined. Clinical correlation is essential. Serum or plasma urea nitroge n measurement (mass/volume)Ordered By: Dwayne Gibson on 07-30-2023 Urea nitrogen [Mass/Vol] 18 mg/dL 7-[address] [facility] Squamous epithelial cells de tection in urine sediment by light microscopyOrdered By: Dwayne Gibson on 07-30-2023 Epithelial cells.squamous LM Ql (Urine sed) 10-25 SEEN /hpf 5-[address] [facility] Thin prep Papanicolaou smear with manual screeningOrdered By: Dwayne Gibson on 07-30-2023 Protein (U) [Mass/Vol] 61.8 mg/dL 0.0-11.8 [facility] Thin prep Papanicolaou smear with manual screening 3.9 g/dL 3.2-5.[address] [facility] Thin prep Papanicolaou smear with manual screening 22 U/L 15-[address] [facility] Thin prep Papanicolaou smear with manual screening 6 5-[address] [facility] Urine blood detectionOrdered By: Dwayne Gibson on 07-30-2023 RBC Ql (U) 50 /ul Negative [facility] Urine clarityOrdered By: Efrain Gibson on 07-30-2023 Clarity (U) Clear Clear [facility] Urine color determinationOrd ered By: Dwayne Gibson on 07-30-2023 Color (U) Yellow Yellow [facility] Urine creatinine measurement (mass/volume)Ordered By: Dwayne Gibson on 07-30-2023 Creatinine (U) [Mass/Vol] 51.70 mg/dL NO RANGE EST. [facility] Urine glucose detectionOrder ed By: Dwayne Gibson on 07-30-2023 Glucose Ql (U) Normal mg/dl Normal [facility] Urine leukocyte esterase det ection by dipstickOrdered By: Dwayne Gibson on 07-30-2023 Leukocyte esterase Test strip Ql (U) 25 /ul Negative [facility] Urine pHOrdered By: Dwayne mejía on 07-30-2023 pH (U) 6.0 [pH] 5.0 - 8.[address] [facility] Urine protein/creatinine mas s ratioOrdered By: Dwayne Gibson on 07-30-2023 Protein/Creatinine (U) [Mass ratio] 1195 mg/g CRE 0-[address] [facility] Urine sediment bacteria coun t by microscopy (number/high power field)Ordered By: Dwayne Gibson on 07-30-2023 Bacteria LM.HPF (Urine sed) [#/Area] RARE /hpf None Seen [facility] Urine specific gravity measu rementOrdered By: Dwayne Gibson on 07-30-2023 Specific gravity (U) [Rel density] 1.010 1.002-1.[address] [facility] Urine urobilinogen measureme ntOrdered By: Dwayne Gibson on 07-30-2023 Urobilinogen Ql (U) Normal mg/dl Normal [facility] Whole blood hemoglobin A1c/t otal hemoglobin ratio (mass fraction)Ordered By: Dwayne Gibson on 07-30-2023 HbA1c (Bld) [Mass fraction] 5.3 % 3.8-5.[address] [facility] Comment on above: Normal < 5.7 % Predi abetic 5.7 - 6.4 % Diabetic >or= 6.5 % Please note range changes. Culture, urineOrdered By: Crystal Spivey on 04-27-2023 Bacteria identified Cx Nom (U) Mixed Gram Pos & Gram Neg Org [facility] Bacteria identified Cx Nom (U) Mixed Gram Pos & Gram Neg Org [facility] Laboratory - Chemistry and C hemistry - challengeon 04-25-2023 Bilirubin Ql (U) Moderate (2+) [facility] Glucose Ql (U) Negative [facility] Ketones Ql (U) Negative [facility] pH (U) 5.0 [pH] [facility] Specific gravity (U) [Rel density] 1.[address] [facility] Urobilinogen (U) [Mass/Vol] Negative [facility] Laboratory - Hematology and Cell countson 04-25-2023 Hemoglobin Ql (U) Moderate [facility] Laboratory - Specimen inform ationon 04-25-2023 Clarity (U) Cloudy [facility] Color (U) Yellow [facility] Laboratory - Urinalysison Nitrite Ql (U) Negative [facility] Protein Ql (U) 2+ [facility] No Panel Informationon 04-25 Urine Leukocytes Positive [facility] Urine Non-Hemolyzed Blood [facility] Basophil percentageOrdered B y: Dwayne Gibson on 10-20-2022 Chloride [Moles/Vol] 109 mmol/L 98-107 [facility] Glucose [Mass/Vol] 100 mg/dL 74-106 [facility] Comment on above: Fasting Glucose resu lt from 100 to 125 mg/dL suggests IMPAIRED HOMEOSTASIS per A.D.A. criteria. Potassium [Moles/Vol] 4.1 mmol/L 3.5-5.1 [facility] Sodium [Moles/Vol] 140 mmol/L 136-145 [facility] Laboratory - Chemistry and C hemistry - challengeOrdered By: Dwayne Gibson on 10-20-2022 CO2 [Moles/Vol] 24.0 mmol/L 21.0-32.[address] [facility] Urea nitrogen/Creatinine [Mass ratio] 20.3 mg/mg 10- [facility] No Panel InformationOrdered By: Dwayne Gibson on 10-20-2022 Estimated GFR (MDRD) Amer 73 mL/min >[address] [facility] Comment on above: GFR Calc Estimated GFR (MDRD) Non-Af Amer 60 mL/min >[address] [facility] Comment on above: Non- GFR Calc Serum or plasma calcium julee urement (mass/volume)Ordered By: Dwayne Gibson on 10-20-2022 Calcium [Mass/Vol] 8.9 mg/dL 8.5-10.1 [facility] Serum or plasma creatinine m easurement (mass/volume)Ordered By: Dwayne Gibson on 10-20-2022 Creatinine [Mass/Vol] 0.99 mg/dL 0.55-1.02 [facility] Comment on above: The validity of the calculated GFR & GFRAA in patients over 70 years has not been determined. Clinical correlation is essential. Serum or plasma urea nitroge n measurement (mass/volume)Ordered By: Dwayne Gibson on 10-20-2022 Urea nitrogen [Mass/Vol] 20 mg/dL 7-[address] [facility] Thin prep Papanicolaou smear with manual screeningOrdered By: Dwayne Gibson on 10-20-2022 Thin prep Papanicolaou smear with manual screening 7 5-[address] [facility] Absolute lymphocyte countOrd ered By: Dwayne Iveycatherine on 10-09-2022 Lymphocytes Auto (Unsp spec) [#/Vol] 1.72 10*3/uL 0.83-4.[address] [facility] Basophil percentageOrdered B y: Dwayne Gibson on 10-09-2022 Basophils/100 WBC (Bld) 0.8 % 0-[address] [facility] Bilirubin [Mass/Vol] 0.50 mg/dL 0.20-1.00 [facility] Comment on above: For patients on eltr ombopag therapy, use of Dimension [place] TBIL is not recommended. Chloride [Moles/Vol] 104 mmol/L 98-107 [facility] Cholesterol [Mass/Vol] 146 mg/dL <200 [facility] Comment on above: <200 mg/dL Desirable 200-240 mg/dL Borderline >240 mg/dL High Risk Eosinophils/100 WBC (Bld) 2.3 % 0-[address] [facility] Glucose [Mass/Vol] 106 mg/dL 74-106 [facility] Comment on above: Fasting Glucose resu lt from 100 to 125 mg/dL suggests IMPAIRED HOMEOSTASIS per A.D.A. criteria. Neutrophils (Bld) [#/Vol] 7.0 10*3/uL 2.0-7.[address] [facility] Neutrophils/100 WBC (Bld) 74.0 % 47-[address] [facility] Potassium [Moles/Vol] 4.0 mmol/L 3.5-5.1 [facility] Protein [Mass/Vol] 7.2 g/dL 6.4-8.2 [facility] Sodium [Moles/Vol] 137 mmol/L 136-145 [facility] Triglyceride [Mass/Vol] 108 mg/dL <[address] [facility] Comment on above: The drugs N-Acetylcy steine and Metamizole may falsely depress this assay.Serum Triglycerides Reference Interval Normal <150 mg/dL Borderline high 150 - 199 mg/dL High 200 - 499 mg/dL Very High > or = 500 mg/dL WBC (Bld) [#/Vol] 9.5 10*3/uL 4.4-11.0 [facility] Blood erythrocytes count (nu mber/volume)Ordered By: Dwayne Gibson on 10-09-2022 RBC (Bld) [#/Vol] 4.78 10*6/uL 4.2-5.4 [facility] Blood hemoglobin measurement (mass/volume)Ordered By: Dwayne Gibson on 10-09-2022 Hemoglobin (Bld) [Mass/Vol] 14.2 g/dL 12.0-15.[address] [facility] Blood lymphocytes/100 leukoc ytesOrdered By: Dwayne Gibson on 10-09-2022 Lymphocytes/100 WBC (Bld) 18.2 % 19-[address] [facility] Blood monocytes/100 leukocyt esOrdered By: Dwayne Gibson on 10-09-2022 Monocytes/100 WBC (Bld) 4.3 % 0-[address] [facility] Blood platelet mean volumeOr dered By: Dwayne Gibson on 10-09-2022 Platelet mean volume (Bld) [Entitic vol] 10.0 fL 6.2-12.[address] [facility] Determination of erythrocyte mean corpuscular volume (MCV)Ordered By: wDayne Gibson on 10-09-2022 MCV (RBC) [Entitic vol] 91.6 fL 81-[address] [facility] Hematocrit Auto (Bld) [Volum e fraction]Ordered By: Dwayne Gibson on 10-09-2022 Hematocrit (Bld) [Volume fraction] 43.8 % 37-[address] [facility] Laboratory - Chemistry and C hemistry - challengeOrdered By: Dwayne Gibson on 10-09-2022 ALP [Catalytic activity/Vol] 82 U/L 45-[address] [facility] ALT [Catalytic activity/Vol] 29 U/L 13-[address] [facility] CO2 [Moles/Vol] 24.0 mmol/L 21.0-32.[address] [facility] Globulin (S) [Mass/Vol] 3.9 g/dL 2.2-4.[address] [facility] Urea nitrogen/Creatinine [Mass ratio] 16.0 mg/mg 10-[address] [facility] Laboratory - Hematology and Cell countsOrdered By: Dwayne Gibson on 07-13-2023 Erythrocyte distribution width (RBC) [Entitic vol] 43.8 fL 35.1-43.[address] [facility] Erythrocyte distribution width (RBC) [Ratio] 13.0 % 11.6-14.[address] [facility] Immature granulocytes/100 WBC (Bld) 0.400 % 0.0-0.[address] [facility] Comment on above: IG% - Immature Granu locytes (promyelocytes, myelocytes and metamyelocytes) > 1% indicates that a LEFT SHIFT is Present. MCH (RBC) [Entitic mass] 29.7 pg 27.0-32.[address] [facility] Nucleated RBC/100 WBC (Bld) [Ratio] 0 % 0-[address] [facility] MCHC Auto (RBC) [Mass/Vol]Or dered By: Dwayne Gibson on 10-09-2022 MCHC (RBC) [Mass/Vol] 32.4 g/dL 32-36 [facility] No Panel InformationOrdered By: Dwayne Gibson on 10-09-2022 Estimated GFR (MDRD) Amer 67 mL/min >[address] [facility] Comment on above: GFR Calc Estimated GFR (MDRD) Non-Af Amer 56 mL/min >[address] [facility] Comment on above: Non- GFR Calc Platelets bldOrdered By: Efrain Gibson on 10-09-2022 Platelets (Bld) [#/Vol] 258 10*3/uL 150-[address] [facility] Serum or plasma albumin julee urement (mass/volume)Ordered By: Dwayne Gibson on 10-09-2022 Albumin [Mass/Vol] 3.3 g/dL 3.2-5.0 [facility] Serum or plasma albumin/glob ulin mass ratioOrdered By: Dwayne Gibson on 10-09-2022 Albumin/Globulin [Mass ratio] 0.8 {ratio} 0.9-2.[address] [facility] Serum or plasma calcium julee urement (mass/volume)Ordered By: Dwayne Gibson on 10-09-2022 Calcium [Mass/Vol] 8.9 mg/dL 8.5-10.1 [facility] Serum or plasma cholesterol in HDL measurement (mass/volume)Ordered By: Dwayne Gibson on 10-09-2022 Cholesterol in HDL [Mass/Vol] 61 mg/dL >[address] [facility] Comment on above: The drugs N-Acetylcy steine and Metamizole may falsely depress this assay. Reference Range HDL <40 mg/dL Low HDL Cholesterol HDL >or= 60 mg/dL High HDL Cholesterol Serum or plasma cholesterol in VLDL measurement (mass/volume)Ordered By: Dwayne Gibson on 10-09-2022 Cholesterol in VLDL [Mass/Vol] 22 mg/dL 5-[address] [facility] Serum or plasma creatinine m easurement (mass/volume)Ordered By: Dwayne Gibson on 10-09-2022 Creatinine [Mass/Vol] 1.06 mg/dL 0.55-1.02 [facility] Comment on above: The validity of the calculated GFR & GFRAA in patients over 70 years has not been determined. Clinical correlation is essential. Serum or plasma low density lipoprotein (LDL) cholesterol measurement (mass/volume)Ordered By: Dwayne Gibson on 10-09-2022 Cholesterol in LDL [Mass/Vol] 63 mg/dL 0-[address] [facility] Serum or plasma urea nitroge n measurement (mass/volume)Ordered By: Dwayne Gibson on 10-09-2022 Urea nitrogen [Mass/Vol] 17 mg/dL 7-[address] [facility] Thin prep Papanicolaou smear with manual screeningOrdered By: Dwayne Gibson on 10-09-2022 Thin prep Papanicolaou smear with manual screening 21 U/L 15-[address] [facility] Thin prep Papanicolaou smear with manual screening 9 5-[address] [facility] Whole blood hemoglobin A1c/t otal hemoglobin ratio (mass fraction)Ordered By: Dwayne Gibson on 10-09-2022 HbA1c (Bld) [Mass fraction] 5.5 % 3.8-5.[address] [facility] Comment on above: Normal < 5.7 % Predi abetic 5.7 - 6.4 % Diabetic >or= 6.5 % Please note range changes. Absolute lymphocyte countOrd ered By: Dr. Gibson on 06-13-2022 Lymphocytes Auto (Unsp spec) [#/Vol] 2.11 10*3/uL 0.83-4.[address] [facility] Basophil percentageOrdered B y: Dr. Gibson on 06-13-2022 Basophils/100 WBC (Bld) 1.0 % 0-[address] [facility] Bilirubin [Mass/Vol] 0.30 mg/dL 0.20-1.00 [facility] Comment on above: For patients on eltr ombopag therapy, use of Dimension [place] TBIL is not recommended. Chloride [Moles/Vol] 110 mmol/L 98-107 [facility] Cholesterol [Mass/Vol] 163 mg/dL <200 [facility] Comment on above: <200 mg/dL Desirable 200-240 mg/dL Borderline >240 mg/dL High Risk Eosinophils/100 WBC (Bld) 2.4 % 0-[address] [facility] Glucose [Mass/Vol] 119 mg/dL 74-106 [facility] Comment on above: Fasting Glucose resu lt from 100 to 125 mg/dL suggests IMPAIRED HOMEOSTASIS per A.D.A. criteria. Neutrophils (Bld) [#/Vol] 4.5 10*3/uL 2.0-7.[address] [facility] Neutrophils/100 WBC (Bld) 61.6 % 47-[address] [facility] Potassium [Moles/Vol] 4.2 mmol/L 3.5-5.1 [facility] Protein [Mass/Vol] 6.8 g/dL 6.4-8.2 [facility] Sodium [Moles/Vol] 141 mmol/L 136-145 [facility] Triglyceride [Mass/Vol] 179 mg/dL <[address] [facility] Comment on above: The drugs N-Acetylcy steine and Metamizole may falsely depress this assay.Serum Triglycerides Reference Interval Normal <150 mg/dL Borderline high 150 - 199 mg/dL High 200 - 499 mg/dL Very High > or = 500 mg/dL WBC (Bld) [#/Vol] 7.2 10*3/uL 4.4-11.0 [facility] Blood erythrocytes count (nu mber/volume)Ordered By: Dr. Gibson on 06-13-2022 RBC (Bld) [#/Vol] 4.75 10*6/uL 4.2-5.4 [facility] Blood hemoglobin measurement (mass/volume)Ordered By: Dr. Gibson on 06-13-2022 Hemoglobin (Bld) [Mass/Vol] 14.4 g/dL 12.0-15.[address] [facility] Blood lymphocytes/100 leukoc ytesOrdered By: Dr. Gibson on 06-13-2022 Lymphocytes/100 WBC (Bld) 29.2 % 19-[address] [facility] Blood monocytes/100 leukocyt esOrdered By: Dr. Gibson on 06-13-2022 Monocytes/100 WBC (Bld) 5.4 % 0-[address] [facility] Blood platelet mean volumeOr dered By: Dr. Gibson on 06-13-2022 Platelet mean volume (Bld) [Entitic vol] 9.8 fL 6.2-12.[address] [facility] Determination of erythrocyte mean corpuscular volume (MCV)Ordered By: Dr. Gibson on 06-13-2022 MCV (RBC) [Entitic vol] 92.6 fL 81-[address] [facility] Hematocrit Auto (Bld) [Volum e fraction]Ordered By: Dr. Gibson on 06-13-2022 Hematocrit (Bld) [Volume fraction] 44.0 % 37-[address] [facility] Laboratory - Chemistry and C hemistry - challengeOrdered By: Dr. Gibson on 06-13-2022 ALP [Catalytic activity/Vol] 61 U/L 45-[address] [facility] ALT [Catalytic activity/Vol] 29 U/L 13-[address] [facility] CO2 [Moles/Vol] 25.0 mmol/L 21.0-32.[address] [facility] Globulin (S) [Mass/Vol] 3.5 g/dL 2.2-4.[address] [facility] Urea nitrogen/Creatinine [Mass ratio] 15.3 mg/mg 10-[address] [facility] Laboratory - Hematology and Cell countsOrdered By: Dr. Gibson on 06-13-2022 Erythrocyte distribution width (RBC) [Entitic vol] 42.5 fL 35.1-43.[address] [facility] Erythrocyte distribution width (RBC) [Ratio] 12.4 % 11.6-14.[address] [facility] Immature granulocytes/100 WBC (Bld) 0.400 % 0.0-0.[address] [facility] Comment on above: IG% - Immature Granu locytes (promyelocytes, myelocytes and metamyelocytes) > 1% indicates that a LEFT SHIFT is Present. MCH (RBC) [Entitic mass] 30.3 pg 27.0-32.[address] [facility] Nucleated RBC/100 WBC (Bld) [Ratio] 0 % 0-[address] [facility] MCHC Auto (RBC) [Mass/Vol]Or dered By: Dr. Gibson on 06-13-2022 MCHC (RBC) [Mass/Vol] 32.7 g/dL 32-36 [facility] No Panel InformationOrdered By: Dr. Gibson on 06-13-2022 Estimated GFR (MDRD) Amer 64 mL/min >[address] [facility] Comment on above: GFR Calc Estimated GFR (MDRD) Non-Af Amer 53 mL/min >[address] [facility] Comment on above: Non- GFR Calc Platelets bldOrdered By: Dr. Gibson on 06-13-2022 Platelets (Bld) [#/Vol] 254 10*3/uL 150-[address] [facility] Serum or plasma albumin julee urement (mass/volume)Ordered By: Dr. Gibson on 06-13-2022 Albumin [Mass/Vol] 3.3 g/dL 3.2-5.0 [facility] Serum or plasma albumin/glob ulin mass ratioOrdered By: Dr. Gibson on 06-13-2022 Albumin/Globulin [Mass ratio] 0.9 {ratio} 0.9-2.[address] [facility] Serum or plasma calcium julee urement (mass/volume)Ordered By: Dr. Gibson on 06-13-2022 Calcium [Mass/Vol] 8.5 mg/dL 8.5-10.1 [facility] Serum or plasma cholesterol in HDL measurement (mass/volume)Ordered By: Dr. Gibson on 06-13-2022 Cholesterol in HDL [Mass/Vol] 59 mg/dL >[address] [facility] Comment on above: The drugs N-Acetylcy steine and Metamizole may falsely depress this assay. Reference Range HDL <40 mg/dL Low HDL Cholesterol HDL >or= 60 mg/dL High HDL Cholesterol Serum or plasma cholesterol in VLDL measurement (mass/volume)Ordered By: Dr. Gibson on 06-13-2022 Cholesterol in VLDL [Mass/Vol] 36 mg/dL 5-[address] [facility] Serum or plasma creatinine m easurement (mass/volume)Ordered By: Dr. Gibson on 06-13-2022 Creatinine [Mass/Vol] 1.11 mg/dL 0.55-1.02 [facility] Comment on above: The validity of the calculated GFR & GFRAA in patients over 70 years has not been determined. Clinical correlation is essential. Serum or plasma low density lipoprotein (LDL) cholesterol measurement (mass/volume)Ordered By: Dr. Gibson on 06-13-2022 Cholesterol in LDL [Mass/Vol] 68 mg/dL 0-[address] [facility] Serum or plasma urea nitroge n measurement (mass/volume)Ordered By: Dr. Gibson on 06-13-2022 Urea nitrogen [Mass/Vol] 17 mg/dL 7-[address] [facility] Thin prep Papanicolaou smear with manual screeningOrdered By: Dr. Gibson on 06-13-2022 Thin prep Papanicolaou smear with manual screening 23 U/L 15-[address] [facility] Thin prep Papanicolaou smear with manual screening 6 5-[address] [facility] Whole blood hemoglobin A1c/t otal hemoglobin ratio (mass fraction)Ordered By: Dr. Gibson on 06-13-2022 HbA1c (Bld) [Mass fraction] 5.5 % 3.8-5.[address] [facility] Comment on above: Normal < 5.7 % Predi abetic 5.7 - 6.4 % Diabetic >or= 6.5 % Please note range changes. ANES POSTPROC EVALon 022 ANES POSTPROC EVAL HNO ID: [id number] Author: Iftikhar Martinez MD Service: ? 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 ANES PRE-OPon 02-27-2022 ANES PRE-OP HNO ID: [id number] Author: Iftikhar Martinez MD Service: ? Author Type: Anesthesiologist Type: Anesthesia Preprocedure Evaluation Filed: 02/27/2022 9:07 AM Note Text: ANESTHESIOLOGY DAY OF SURGERY NOTE : 1960 Procedure Information Anesthesia Start Date/Time: 02/27/22 0854 Scheduled providers: Dwayne Leung MD; Iftikhar Martinez MD; Merari Toro APRN.FARM TECHNICIAN Procedure: EGD - THERAPEUTIC, EUS, OR TUBE [...] and consent discussed: yes. Patient / Responsible Democrat agrees to proceed: yes Patient / Surrogate [...] February 27, 2022 TIME: 9:07 AM CSN: [id number] Normal [facility] EGD - THERAPEUTIC, EUS, OR T UBE INTERVENTIONSon 02-27-2022 [facility] HISTORY PHYSICALon HISTORY PHYSICAL HNO ID: [id number] Author: Dwayne Leung MD Service: Gastroenterology Author [...] Additional Comments: None Dwayne Leung II, MD [facility] NURSING PROGon 02-27-2022 NURSING PROG HNO ID: [id number] Author: Elizabeth Vang RN Service: ? Author [...] None Electronically Signed By: Elizabeth Vang RN [facility] NURSING PROG HNO ID: [id number] Author: Jessi Calvo LPN Service: Nursing Author [...] By: Jessi Calvo LPN In Department: GASTROENTEROLOGY [facility] Arabella 02-18-2022 KIKI Telephone (GASTPR) ЕКАТЕРИНА BA ([id number]) 1960 F DEF Date Time Provider Department 02/18/22 SAMRA SALCEDO During your visit today, we recorded the following information about you: Samra Salcedo LPN 02/18/2022 3:34 PM Signed Attempted to reach the patient at the contact number that they provided [phone] (home) . 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 Basophil percentageon 2021 Chloride [Moles/Vol] 104 mmol/L 98-[address] [facility] [address] [facility] Work Phone: Glucose [Mass/Vol] 111 mg/dL 74-106 [facility] Work Phone: Comment on above: Fasting Glucose resu lt from 100 to 125 mg/dL suggests IMPAIRED HOMEOSTASIS per A.D.A. criteria. Potassium [Moles/Vol] 4.1 mmol/L 3.5-5.1 [facility] Work Phone: Sodium [Moles/Vol] 137 mmol/L 136-145 [facility] Work Phone: Laboratory - Chemistry and C hemistry - challengeon 01-09-2022 CO2 [Moles/Vol] 26.0 mmol/L 21.0-32.[address] [facility] Work Phone: Urea nitrogen/Creatinine [Mass ratio] 18.8 mg/mg 10-[address] [facility] Work Phone: No Panel Informationon 01-09 Estimated GFR (MDRD) Amer 71 mL/min >[address] [facility] Work Phone: Comment on above: GFR Calc Estimated GFR (MDRD) Non-Af Amer 59 mL/min >[address] [facility] Work Phone: Comment on above: Non- GFR Calc Serum or plasma calcium julee urement (mass/volume)on 01-09-2022 Calcium [Mass/Vol] 9.0 mg/dL 8.5-10.1 [facility] Work Phone: Serum or plasma creatinine m easurement (mass/volume)on 01-09-2022 Creatinine [Mass/Vol] 1.01 mg/dL 0.55-1.02 [facility] Work Phone: Comment on above: The validity of the calculated GFR & GFRAA in patients over 70 years has not been determined. Clinical correlation is essential. Serum or plasma urea nitroge n measurement (mass/volume)on 01-09-2022 Urea nitrogen [Mass/Vol] 19 mg/dL 7-[address] [facility] Work Phone: Thin prep Papanicolaou smear with manual screeningon 01-09-2022 Thin prep Papanicolaou smear with manual screening 7 5-[address] [facility] Work Phone: Absolute lymphocyte counton 01-02-2022 Lymphocytes Auto (Unsp spec) [#/Vol] 2.09 10*3/uL 0.83-4.[address] [facility] Work Phone: [phone] Basophil percentageon 2021 Basophils/100 WBC (Bld) 0.8 % 0-[address] [facility] Work Phone: [phone] Bilirubin [Mass/Vol] 0.30 mg/dL 0.20-1.00 [facility] Work Phone: Comment on above: For patients on eltr ombopag therapy, use of Dimension [place] TBIL is not recommended. Chloride [Moles/Vol] 109 mmol/L 98-107 [facility] Work Phone: [phone] Cholesterol [Mass/Vol] 165 mg/dL <200 [facility] Work Phone: Comment on above: <200 mg/dL Desirable 200-240 mg/dL Borderline >240 mg/dL High Risk Eosinophils/100 WBC (Bld) 1.6 % 0-[address] [facility] Work Phone: [phone] Glucose [Mass/Vol] 110 mg/dL 74-106 [facility] Work Phone: Comment on above: Fasting Glucose resu lt from 100 to 125 mg/dL suggests IMPAIRED HOMEOSTASIS per A.D.A. criteria. Neutrophils (Bld) [#/Vol] 4.6 10*3/uL 2.0-7.[address] [facility] Work Phone: [phone] Neutrophils/100 WBC (Bld) 62.7 % 47-[address] [facility] Work Phone: [phone] Potassium [Moles/Vol] 4.5 mmol/L 3.5-5.1 [facility] Work Phone: [phone] Protein [Mass/Vol] 7.4 g/dL 6.4-8.2 [facility] Work Phone: [phone] Sodium [Moles/Vol] 141 mmol/L 136-145 [facility] Work Phone: Triglyceride [Mass/Vol] 90 mg/dL <[address] [facility] Work Phone: Comment on above: The drugs N-Acetylcy steine and Metamizole may falsely depress this assay.Serum Triglycerides Reference Interval Normal <150 mg/dL Borderline high 150 - 199 mg/dL High 200 - 499 mg/dL Very High > or = 500 mg/dL WBC (Bld) [#/Vol] 7.3 10*3/uL 4.4-11.0 [facility] Work Phone: [phone] Blood erythrocytes count (nu mber/volume)on 01-02-2022 RBC (Bld) [#/Vol] 4.78 10*6/uL 4.2-5.4 [facility] Work Phone: [phone] Blood hemoglobin measurement (mass/volume)on 01-02-2022 Hemoglobin (Bld) [Mass/Vol] 14.7 g/dL 12.0-15.[address] [facility] Work Phone: Blood lymphocytes/100 leukoc yteson 01-02-2022 Lymphocytes/100 WBC (Bld) 28.5 % 19-[address] [facility] Work Phone: Blood monocytes/100 leukocyt eson 01-02-2022 Monocytes/100 WBC (Bld) 5.9 % 0-[address] [facility] Work Phone: Blood platelet mean volumeon 01-02-2022 Platelet mean volume (Bld) [Entitic vol] 9.4 fL 6.2-12.[address] [facility] Work Phone: Determination of erythrocyte mean corpuscular volume (MCV)on 01-02-2022 MCV (RBC) [Entitic vol] 92.9 fL 81-[address] [facility] Work Phone: [phone] Hematocrit Auto (Bld) [Volum e fraction]on 01-02-2022 Hematocrit (Bld) [Volume fraction] 44.4 % 37-[address] [facility] Work Phone: [phone] Laboratory - Chemistry and C hemistry - challengeon 01-02-2022 ALP [Catalytic activity/Vol] 60 U/L 45-[address] [facility] Work Phone: ALT [Catalytic activity/Vol] 27 U/L 13-[address] [facility] Work Phone: CO2 [Moles/Vol] 26.0 mmol/L 21.0-32.[address] [facility] Work Phone: Globulin (S) [Mass/Vol] 4.1 g/dL 2.2-4.[address] [facility] Work Phone: Urea nitrogen/Creatinine [Mass ratio] 17.8 mg/mg 10-[address] [facility] Work Phone: Laboratory - Hematology and Cell countson 01-02-2022 Erythrocyte distribution width (RBC) [Entitic vol] 41.5 fL 35.1-43.[address] [facility] Work Phone: Erythrocyte distribution width (RBC) [Ratio] 12.1 % 11.6-14.[address] [facility] Work Phone: Immature granulocytes/100 WBC (Bld) 0.500 % 0.0-0.[address] [facility] Work Phone: Comment on above: IG% - Immature Granu locytes (promyelocytes, myelocytes and metamyelocytes) > 1% indicates that a LEFT SHIFT is Present. MCH (RBC) [Entitic mass] 30.8 pg 27.0-32.[address] [facility] Work Phone: Nucleated RBC/100 WBC (Bld) [Ratio] 0 % 0-[address] [facility] Work Phone: MCHC Auto (RBC) [Mass/Vol]on 01-02-2022 MCHC (RBC) [Mass/Vol] 33.1 g/dL 32-36 [facility] Work Phone: No Panel Informationon 01-02 Estimated GFR (MDRD) Amer 71 mL/min >[address] [facility] Work Phone: Comment on above: GFR Calc Estimated GFR (MDRD) Non-Af Amer 59 mL/min >[address] [facility] Work Phone: Comment on above: Non- GFR Calc Platelets bldon 01-02-2022 Platelets (Bld) [#/Vol] 250 10*3/uL 150-[address] [facility] Work Phone: Serum or plasma albumin julee urement (mass/volume)on 01-02-2022 Albumin [Mass/Vol] 3.3 g/dL 3.2-5.0 [facility] Work Phone: Serum or plasma albumin/glob ulin mass ratioon 01-02-2022 Albumin/Globulin [Mass ratio] 0.8 {ratio} 0.9-2.[address] [facility] Work Phone: Serum or plasma calcium julee urement (mass/volume)on 01-02-2022 Calcium [Mass/Vol] 9.2 mg/dL 8.5-10.1 [facility] Work Phone: Serum or plasma cholesterol in HDL measurement (mass/volume)on 01-02-2022 Cholesterol in HDL [Mass/Vol] 75 mg/dL >[address] [facility] Work Phone: Comment on above: The drugs N-Acetylcy steine and Metamizole may falsely depress this assay. Reference Range HDL <40 mg/dL Low HDL Cholesterol HDL >or= 60 mg/dL High HDL Cholesterol Serum or plasma cholesterol in VLDL measurement (mass/volume)on 01-02-2022 Cholesterol in VLDL [Mass/Vol] 18 mg/dL 5-[address] [facility] Work Phone: Serum or plasma creatinine m easurement (mass/volume)on 01-02-2022 Creatinine [Mass/Vol] 1.01 mg/dL 0.55-1.02 [facility] Work Phone: Comment on above: The validity of the calculated GFR & GFRAA in patients over 70 years has not been determined. Clinical correlation is essential. Serum or plasma low density lipoprotein (LDL) cholesterol measurement (mass/volume)on 01-02-2022 Cholesterol in LDL [Mass/Vol] 72 mg/dL 0-[address] [facility] Work Phone: Serum or plasma urea nitroge n measurement (mass/volume)on 01-02-2022 Urea nitrogen [Mass/Vol] 18 mg/dL 7-[address] [facility] Work Phone: Thin prep Papanicolaou smear with manual screeningon 01-02-2022 Thin prep Papanicolaou smear with manual screening 21 U/L 15-[address] [facility] Work Phone: Thin prep Papanicolaou smear with manual screening 6 5-[address] [facility] Work Phone: Whole blood hemoglobin A1c/t otal hemoglobin ratio (mass fraction)on 01-02-2022 HbA1c (Bld) [Mass fraction] 5.5 % 3.8-5.[address] [facility] Work Phone: Comment on above: Normal < 5.7 % Predi abetic 5.7 - 6.4 % Diabetic >or= 6.5 % Please note range changes. Basophil percentageon 2021 Bilirubin [Mass/Vol] 0.40 mg/dL 0.20-1.00 [facility] Work Phone: Comment on above: For patients on eltr ombopag therapy, use of Dimension [place] TBIL is not recommended. Chloride [Moles/Vol] 108 mmol/L 98-107 [facility] Work Phone: Glucose [Mass/Vol] 104 mg/dL 74-106 [facility] Work Phone: Comment on above: Fasting Glucose resu lt from 100 to 125 mg/dL suggests IMPAIRED HOMEOSTASIS per A.D.A. criteria. Potassium [Moles/Vol] 4.0 mmol/L 3.5-5.1 [facility] Work Phone: Protein [Mass/Vol] 7.3 g/dL 6.4-8.2 [facility] Work Phone: Sodium [Moles/Vol] 144 mmol/L 136-145 [facility] Work Phone: Direct bilirubinon Bilirubin.direct [Mass/Vol] 0.10 mg/dL 0.00-0.[address] [facility] Work Phone: Laboratory - Chemistry and C hemistry - challengeon 12-13-2021 ALP [Catalytic activity/Vol] 63 U/L 45-[address] [facility] Work Phone: ALT [Catalytic activity/Vol] 27 U/L 13-[address] [facility] Work Phone: CO2 [Moles/Vol] 28.0 mmol/L 21.0-32.[address] [facility] Work Phone: Globulin (S) [Mass/Vol] 3.8 g/dL 2.2-4.[address] [facility] Work Phone: Urea nitrogen/Creatinine [Mass ratio] 16.4 mg/mg 10-[address] [facility] Work Phone: No Panel Informationon 12-13 Estimated GFR (MDRD) Amer 61 mL/min >[address] [facility] Work Phone: Comment on above: GFR Calc Estimated GFR (MDRD) Non-Af Amer 50 mL/min >[address] [facility] Work Phone: Comment on above: Non- GFR Calc Serum or plasma albumin julee urement (mass/volume)on 12-13-2021 Albumin [Mass/Vol] 3.5 g/dL 3.2-5.0 [facility] Work Phone: Serum or plasma albumin/glob ulin mass ratioon 12-13-2021 Albumin/Globulin [Mass ratio] 0.9 {ratio} 0.9-2.[address] [facility] Work Phone: Serum or plasma calcium julee urement (mass/volume)on 12-13-2021 Calcium [Mass/Vol] 8.9 mg/dL 8.5-10.1 [facility] Work Phone: Serum or plasma creatinine m easurement (mass/volume)on 12-13-2021 Creatinine [Mass/Vol] 1.16 mg/dL 0.55-1.02 [facility] Work Phone: Comment on above: The validity of the calculated GFR & GFRAA in patients over 70 years has not been determined. Clinical correlation is essential. Serum or plasma urea nitroge n measurement (mass/volume)on 12-13-2021 Urea nitrogen [Mass/Vol] 19 mg/dL 7-[address] [facility] Work Phone: Thin prep Papanicolaou smear with manual screeningon 12-13-2021 Thin prep Papanicolaou smear with manual screening 16 U/L 15-[address] [facility] Work Phone: Thin prep Papanicolaou smear with manual screening 8 5-[address] [facility] Work Phone: C[facility]06-2021 [id number] ЕКАТЕРИНА BA ([id number]) 1960 F DEF Date Time Provider Department [...] Renal cell carcinoma [C64.9] 04/24/2011 Solitary kidney [[id number]] 04/24/2011 Deaf [H91.90] 07/31/2011 Digital nerve laceration, finger [S64.40XA] 12/02/2012 Laceration of thumb with tendon involvement [S6*12/02/2012 Impingement syndrome of right shoulder [M75.41] 01/13/2013 Bilateral hearing loss [H91.93] 06/25/2015 GERD (gastroesophageal reflux disease) [K21.9] 06/25/2015 Encounter Status:Closed by ÁNGELA RICHTER on 08/06/21 Normal [facility] Iron measurement (mass/mass) on 08-01-2021 Iron (Unsp spec) [Mass/Mass] 74 ug/dL 50-[address] [facility] Work Phone: Laboratory - Chemistry and C hemistry - challengeon 08-01-2021 Transferrin [Mass/Vol] 241 mg/dL [facility] Work Phone: Comment on above: Performed at: [address] [id number] Director: Phil Egan PhD, Phone: [phone] No Panel Informationon 08-01 Total Iron Binding Capacity 304 ug/dL 250-[address] [facility] Work Phone: Serum or plasma ferritin juan antonio surement (mass/volume)on 08-01-2021 Ferritin [Mass/Vol] 125 ng/mL 8-252 [facility] Work Phone: Absolute lymphocyte counton 07-26-2021 Lymphocytes Auto (Unsp spec) [#/Vol] 2.36 10*3/uL 0.83-4.[address] [facility] Work Phone: Basophil percentageon 2021 Basophils/100 WBC (Bld) 0.8 % 0-[address] [facility] Work Phone: Bilirubin [Mass/Vol] 0.20 mg/dL 0.20-1.00 [facility] Work Phone: Comment on above: For patients on eltr ombopag therapy, use of Dimension [place] TBIL is not recommended. Chloride [Moles/Vol] 106 mmol/L 98-107 [facility] Work Phone: Cholesterol [Mass/Vol] 175 mg/dL <200 [facility] Work Phone: Comment on above: <200 mg/dL Desirable 200-240 mg/dL Borderline >240 mg/dL High Risk Eosinophils/100 WBC (Bld) 2.1 % 0-[address] [facility] Work Phone: Glucose [Mass/Vol] 112 mg/dL 74-106 [facility] Work Phone: Comment on above: Fasting Glucose resu lt from 100 to 125 mg/dL suggests IMPAIRED HOMEOSTASIS per A.D.A. criteria. Neutrophils (Bld) [#/Vol] 6.2 10*3/uL 2.0-7.[address] [facility] Work Phone: Neutrophils/100 WBC (Bld) 66.5 % 47-[address] [facility] Work Phone: Potassium [Moles/Vol] 4.4 mmol/L 3.5-5.1 [facility] Work Phone: Comment on above: Slight Hemolysis, Re sult may be falsely increased. Protein [Mass/Vol] 6.9 g/dL 6.4-8.2 [facility] Work Phone: Sodium [Moles/Vol] 135 mmol/L 136-145 [facility] Work Phone: Triglyceride [Mass/Vol] 105 mg/dL [facility] Work Phone: Comment on above: The drugs N-Acetylcy steine and Metamizole may falsely depress this assay.Serum Triglycerides Reference Interval Normal <150 mg/dL Borderline high 150 - 199 mg/dL High 200 - 499 mg/dL Very High > or = 500 mg/dL WBC (Bld) [#/Vol] 9.3 10*3/uL 4.4-11.0 [facility] Work Phone: Blood erythrocytes count (nu mber/volume)on 07-26-2021 RBC (Bld) [#/Vol] 5.13 10*6/uL 4.2-5.4 [facility] Work Phone: Blood hemoglobin measurement (mass/volume)on 07-26-2021 Hemoglobin (Bld) [Mass/Vol] 15.6 g/dL 12.0-15.[address] [facility] Work Phone: Blood lymphocytes/100 leukoc yteson 07-26-2021 Lymphocytes/100 WBC (Bld) 25.3 % 19-[address] [facility] Work Phone: Blood monocytes/100 leukocyt eson 07-26-2021 Monocytes/100 WBC (Bld) 4.9 % 0-[address] [facility] Work Phone: [phone] Blood platelet mean volumeon 07-26-2021 Platelet mean volume (Bld) [Entitic vol] 10.0 fL 6.2-12.[address] [facility] Work Phone: Determination of erythrocyte mean corpuscular volume (MCV)on 07-26-2021 MCV (RBC) [Entitic vol] 91.4 fL 81-[address] [facility] Work Phone: [phone] Hematocrit Auto (Bld) [Volum e fraction]on 07-26-2021 Hematocrit (Bld) [Volume fraction] 46.9 % 37-[address] [facility] Work Phone: Laboratory - Chemistry and C hemistry - challengeon 07-26-2021 ALP [Catalytic activity/Vol] 66 U/L 45-[address] [facility] Work Phone: [phone] ALT [Catalytic activity/Vol] 29 U/L 13-[address] [facility] Work Phone: [phone] CO2 [Moles/Vol] 25.0 mmol/L 21.0-32.[address] [facility] Work Phone: [phone] Globulin (S) [Mass/Vol] 3.7 g/dL 2.2-4.[address] [facility] Work Phone: [phone] Urea nitrogen/Creatinine [Mass ratio] 22.0 mg/mg 10-[address] [facility] Work Phone: Laboratory - Hematology and Cell countson 07-26-2021 Erythrocyte distribution width (RBC) [Entitic vol] 42.7 fL 35.1-43.[address] [facility] Work Phone: [phone] Erythrocyte distribution width (RBC) [Ratio] 12.6 % 11.6-14.[address] [facility] Work Phone: [phone] Immature granulocytes/100 WBC (Bld) 0.400 % 0.0-0.[address] [facility] Work Phone: Comment on above: IG% - Immature Granu locytes (promyelocytes, myelocytes and metamyelocytes) > 1% indicates that a LEFT SHIFT is Present. MCH (RBC) [Entitic mass] 30.4 pg 27.0-32.[address] [facility] Work Phone: [phone] Nucleated RBC/100 WBC (Bld) [Ratio] 0 % 0-[address] [facility] Work Phone: [phone] MCHC Auto (RBC) [Mass/Vol]on 07-26-2021 MCHC (RBC) [Mass/Vol] 33.3 g/dL 32-36 [facility] Work Phone: [phone] No Panel Informationon 07-26 Estimated GFR (MDRD) Amer 72 mL/min >[address] [facility] Work Phone: Comment on above: GFR Calc Estimated GFR (MDRD) Non-Af Amer 60 mL/min >[address] [facility] Work Phone: Comment on above: Non- GFR Calc Platelets bldon 07-26-2021 Platelets (Bld) [#/Vol] 239 10*3/uL 150-[address] [facility] Work Phone: Serum or plasma albumin julee urement (mass/volume)on 07-26-2021 Albumin [Mass/Vol] 3.2 g/dL 3.2-5.0 [facility] Work Phone: Serum or plasma albumin/glob ulin mass ratioon 07-26-2021 Albumin/Globulin [Mass ratio] 0.9 {ratio} 0.9-2.[address] [facility] Work Phone: Serum or plasma calcium julee urement (mass/volume)on 07-26-2021 Calcium [Mass/Vol] 8.6 mg/dL 8.5-10.1 [facility] Work Phone: Serum or plasma cholesterol in HDL measurement (mass/volume)on 07-26-2021 Cholesterol in HDL [Mass/Vol] 57 mg/dL [facility] Work Phone: Comment on above: The drugs N-Acetylcy steine and Metamizole may falsely depress this assay. Reference Range HDL <40 mg/dL Low HDL Cholesterol HDL >or= 60 mg/dL High HDL Cholesterol Serum or plasma cholesterol in VLDL measurement (mass/volume)on 07-26-2021 Cholesterol in VLDL [Mass/Vol] 21 mg/dL 5-[address] [facility] Work Phone: Serum or plasma creatinine m easurement (mass/volume)on 07-26-2021 Creatinine [Mass/Vol] 1.00 mg/dL 0.55-1.02 [facility] Work Phone: Comment on above: The validity of the calculated GFR & GFRAA in patients over 70 years has not been determined. Clinical correlation is essential. Serum or plasma low density lipoprotein (LDL) cholesterol measurement (mass/volume)on 07-26-2021 Cholesterol in LDL [Mass/Vol] 97 mg/dL 0-[address] [facility] Work Phone: Serum or plasma urea nitroge n measurement (mass/volume)on 07-26-2021 Urea nitrogen [Mass/Vol] 22 mg/dL 7-[address] [facility] Work Phone: Thin prep Papanicolaou smear with manual screeningon 07-26-2021 Thin prep Papanicolaou smear with manual screening 19 U/L 15-[address] [facility] Work Phone: Comment on above: Slight Hemolysis, Re sult may be falsely increased. Thin prep Papanicolaou smear with manual screening 4 5-[address] [facility] Work Phone: Whole blood hemoglobin A1c/t otal hemoglobin ratio (mass fraction)on 07-26-2021 HbA1c (Bld) [Mass fraction] 5.6 % 3.8-5.[address] [facility] Work Phone: Comment on above: Normal < 5.7 % Predi abetic 5.7 - 6.4 % Diabetic >or= 6.5 % Please note range changes. Vital Signs Date Time Vital Sign Value Performing Clinician Faci lity 11-16-2024 20:04-0400 Body temperature 98.1 [degF] Dr. Dwayne Gibson MD Work Phone: [facility] 11-16-2024 20:04-0400 Diastolic blood pressure 66 mm[Hg] Dr. Dwayne Gibson MD Work Phone: [facility] 11-16-2024 20:04-0400 Heart rate 70 /min Dr. Dwayne Gibson MD Work Phone: [facility] 11-16-2024 20:04-0400 Respiratory rate 17 /min Dr. Dwayne Gibson MD Work Phone: [facility] 11-16-2024 20:04-0400 SaO2% (BldA) [Mass fraction] 98 % Dr. Dwayne Gibson MD Work Phone: [facility] 11-16-2024 20:04-0400 Systolic blood pressure 127 mm[Hg] Dr. Dwayne Gibson MD Work Phone: [facility] 11-16-2024 17:27-0400 Body mass index (BMI) [Ratio] 34 kg/m2 Dr. Dwayne Gibson MD Work Phone: [facility] 11-16-2024 17:27-0400 Body weight 84.[address] Dwayne Gibson MD Work Phone: 9(285)641-737201 [place] [address] 11-16-2024 17:24-0400 Body height 157.[address] Dwayne Gibson MD Work Phone: 6(084)710-285117 [address] 11-04-2024 07:56-0400 Body temperature 98 [degF] Dr. Dwayne Gibson MD Work Phone: 6(091)705-567852 [place] [address] 11-04-2024 07:56-0400 Diastolic blood pressure 62 mm[Hg] Dr. Dwayne Gibson MD Work Phone: 6(609)167-511952 [place] [address] 11-04-2024 07:56-0400 Heart rate 70 /min Dr. Dwayne Gibson MD Work Phone: 2(471)884-011952 [place] [address] 11-04-2024 07:56-0400 Respiratory rate 18 /min Dr. Dwayne Gibson MD Work Phone: 2(646)088-921152 [place] [address] 11-04-2024 07:56-0400 SaO2% (BldA) [Mass fraction] 97 % Dr. Dwayne Gibson MD Work Phone: 5(946)197-295252 [place] [address] 11-04-2024 07:56-0400 Systolic blood pressure 138 mm[Hg] Dr. Dwayne Gibson MD Work Phone: [facility] 11-04-2024 06:19-0400 Body height 157.[address] Dwayne Gibson MD Work Phone: 8(650)741-399552 [place] [address] 11-04-2024 06:19-0400 Body mass index (BMI) [Ratio] 34.2 kg/m2 Dr. Dwayne Gibson MD Work Phone: 9(452)314-897817 [address] 11-04-2024 06:19-0400 Body weight 84.[address] Dwayne Gibson MD Work Phone: [facility] 11-01-2024 09:27-0400 Body weight 84.[address] Dwayne Gibson MD Work Phone: 9(001)804-839901 [place] [address] 10-03-2024 08:42-0400 Body height 157.[address] Dwayne Gibson MD Work Phone: 9(138)968-974401 [place] [address] 10-03-2024 08:42-0400 Body weight 86.[address] Dwayne Gibson MD Work Phone: 8(077)373-636501 [place] [address] 06-25-2024 10:34-0400 Body temperature 98.6 [degF] Dr. Dwayne Gibson MD Work Phone: 8(702)296-631552 [place] [address] 06-25-2024 10:34-0400 Diastolic blood pressure 78 mm[Hg] Dr. Dwayne Gibson MD Work Phone: 4(375)812-178752 [place] [address] 06-25-2024 10:34-0400 Heart rate 78 /min Dr. Dwayne Gibson MD Work Phone: 5(858)300-869352 [place] [address] 06-25-2024 10:34-0400 Respiratory rate 16 /min Dr. Dwayne Gibson MD Work Phone: 7(858)[phone] [place] [address] 06-25-2024 10:34-0400 SaO2% (BldA) [Mass fraction] 98 % Dr. Dwayne Gibson MD Work Phone: 3(111)065-106501 [place] [address] 06-25-2024 10:34-0400 Systolic blood pressure 134 mm[Hg] Dr. Dwayne Gibson MD Work Phone: 8(925)905-003101 [place] [address] 06-25-2024 10:32-0400 Body height 157.[address] Dwayne Gibson MD Work Phone: 6(877)407-165901 [place] [address] 06-25-2024 10:32-0400 Body mass index (BMI) [Ratio] 35.4 kg/m2 Dr. Dwayne Gibson MD Work Phone: 4(909)471-349801 [place] [address] 06-25-2024 10:32-0400 Body weight 87.[address] Dwayne Gibson MD Work Phone: [facility] 04-25-2023 08:46-0500 Body height 157.[address] Dwayne Gibson Work Phone: [facility] 04-25-2023 08:46-0500 Body mass index (BMI) [Ratio] 32.2 kg/m2 Dr. Dwayne Gibson Work Phone: [facility] 04-25-2023 08:46-0500 Body temperature 98 [degF] Dr. Dwayne Gibson Work Phone: [facility] 04-25-2023 08:46-0500 Body weight 79.[address] Dwayne Gibson Work Phone: [facility] 04-25-2023 08:46-0500 Diastolic blood pressure 76 mm[Hg] Dr. Dwayne Gibson Work Phone: [facility] 04-25-2023 08:46-0500 Heart rate 93 /min Dr. Dwayne Gibson Work Phone: [facility] 04-25-2023 08:46-0500 Respiratory rate 15 /min Dr. Dwayne Gibson Work Phone: [facility] 04-25-2023 08:46-0500 SaO2% (BldA) [Mass fraction] 98 % Dr. Dwayne Gibson Work Phone: [facility] 04-25-2023 08:46-0500 Systolic blood pressure 132 mm[Hg] Dr. Dwayne Gibson Work Phone: [facility] 02-27-2022 09:50-0500 Diastolic blood pressure 67 mm[Hg] Dwayne Leung MD Work Phone: [facility] 02-27-2022 09:50-0500 Heart rate 81 /min Dwayne Leung MD Work Phone: [facility] 02-27-2022 09:50-0500 Respiratory rate 16 /min Dwayne Leung MD Work Phone: [facility] 02-27-2022 09:50-0500 SaO2% (BldA) [Mass fraction] 95 % Dwayne Leung MD Work Phone: [facility] 02-27-2022 09:50-0500 Systolic blood pressure 98 mm[Hg] Dwayne Leung MD Work Phone: [facility] 02-27-2022 09:33-0500 Body temperature 97.3 [degF] Dwayne Leung MD Work Phone: [facility] 02-27-2022 08:28-0500 Body height 154.9 cm Dwayne Leung MD Work Phone: [facility] 02-27-2022 08:28-0500 Body weight 72.58 kg Dwayne Leung MD Work Phone: [facility] Encounters Encounter Date Encounter Type Care Provider Facility Start: 01-12-2025 End: 01-12-2025 ambulatory Dwayne Gibson Facility:[facility] Start: 12-08-2024 ambulatory Dwayne Gibson Facilit y:[facility] Start: 11-16-2024 End: 11-16-2024 Emergency department patient visit Dr. Dwayne Gibson MD Work Phone: -Emergency Department Work Phone: Start: 11-15-2024 End: 11-15-2024 ambulatory FLETCHER AWAN [facility] Start: 11-14-2024 End: 11-14-2024 ambulatory PATTIE ARMIJO [facility] Start: 11-04-2024 End: 11-04-2024 Emergency department patient visit Dr. Dwayne Gibson MD Work Phone: -Emergency Department Work Phone: Start: 11-01-2024 End: 11-27-[address] Dwayne Gibson MD -Nutritional Services Work Phone: Start: 11-01-[address] Dwayne Gibson MD -Nutritional Services Work Phone: Start: 11-01-2024 End: 11-27-[address] Dwayne Gibson MD Work Phone: -Nutritional Services Start: 10-03-2024 End: 10-27-[address] Dwayne Gibson MD -Nutritional Services Work Phone: Start: 10-03-2024 End: 10-27-[address] Dwayne Gibson MD Work Phone: -Nutritional Services Start: 09-16-2024 End: 09-16-[address] Dwayne Gibson MD Work Phone: -[facility] Start: 09-16-2024 End: 09-16-[address] Dwayne Gibson MD -[facility] Start: 09-16-2024 End: 09-16-2024 ambulatory Dwayne Gibson Facility:[facility] Start: 09-13-2024 End: 09-13-[address] Dwayne Gibson MD Work Phone: [facility] Work Phone: Start: 09-13-2024 End: 09-13-[address] Dwayne Gibson MD -[facility] Start: 09-13-2024 End: 09-13-2024 ambulatory Dwayne Gibosn Facility:[facility] Start: 06-25-2024 End: 06-25-2024 Emergency department patient visit Dr. Dwayne Gibson MD Work Phone: -Emergency Department Work Phone: Start: 06-15-2024 End: 06-15-[address] Dwayne Gibson MD Work Phone: [facility] Work Phone: Start: 06-15-2024 End: 06-15-[address] Dwayne Gibson MD -Outpatient Bone Densitometry Work Phone: Start: 06-15-2024 End: 06-15-2024 ambulatory Dwayne Gibson Facility:[facility] Start: 06-07-2024 End: 06-07-[address] Dwayne Gibson MD Work Phone: [facility] Work Phone: Start: 06-07-2024 End: 06-07-[address] [facility]: 06-07-2024 End: 06-07-2024 ambulatory Dwayne Gibson Facility:[facility] Start: 03-14-2024 End: 03-14-[address] Dwayne Gibson MD -Laboratory, [facility] Start: 03-14-2024 End: 03-14-2024 ambulatory Dwayne Gibson Facility:[facility] Start: 07-30-2023 End: 07-30-[address] Dwayne Gibson Work Phone: [facility] Work Phone: Start: 07-30-2023 End: 07-30-[address] Dwayne Gibson Work Phone: [facility] Start: 04-27-2023 End: 04-27-[address] Dwayne Gibson Work Phone: [facility] Work Phone: Start: 04-27-2023 End: 04-27-[address] [facility] Work [facility] Start: 04-25-2023 End: 04-25-[address] Dwayne Gibson Work Phone: [facility] Work Phone: Start: 12-26-2022 End: 12-26-2022 ambulatory MERARI TORO Facility:[facility] Start: 12-26-2022 End: 12-26-2022 ambulatory Immunization Clinic Nurse [place] Work Phone: [facility] Start: 11-13-2022 End: 11-13-[address] [facility] Work Phone: Start: 11-13-2022 End: 11-13-2022 Patient encounter procedure [facility]-Cardiovascular Services Work Phone: Start: 10-20-2022 End: 10-20-[address] [facility] Work Phone: Start: 10-20-2022 End: 10-20-2022 Patient encounter procedure [facility] Start: 10-09-2022 End: 10-09-[address] [facility] Work Phone: Start: 10-09-2022 End: 10-09-2022 Patient encounter procedure [facility] Start: 09-16-2022 End: 09-16-[address] [facility] Work Phone: Start: 09-16-2022 End: 09-16-2022 [facility] Start: 06-13-2022 End: 06-13-[address] [facility] Work Phone: Start: 06-13-2022 End: 06-13-2022 Patient encounter procedure [facility] Start: 05-27-2022 End: 05-27-[address] [facility] Work Phone: Start: 05-27-2022 End: 05-27-2022 Patient encounter procedure [facility] [facility] Start: 05-13-2022 End: 05-13-[address] [facility] Work Phone: Start: 05-13-2022 End: 05-13-2022 Patient encounter procedure [facility]-Cat Scan, [facility] Start: 02-27-2022 End: 02-27-2022 ambulatory MERARI TORO Facility:[facility] Start: 02-27-2022 End: 02-27-2022 Subsequent hospital visit by physician Dwayne Leung MD Work Phone: Gastroenterology Comment on above: Duodenal nodule [K31 .89] Start: 02-18-2022 Telephone encounter Samra Salcedo LPN Gastroenterology Comment on above: Appointment Start: 02-05-2022 ambulatory Guille Conde MD Work Phone: Ambulatory Surgery Start: 01-09-2022 End: 01-09-[address] Dwayne iGbson Work Phone: [facility] Work Phone: Start: 01-09-2022 End: 01-09-[address] Dwayne Gibson Work Phone: [facility] Start: 01-02-2022 End: 01-02-[address] Dwayne Gibson Work Phone: [facility] Work Phone: Start: 01-02-2022 End: 01-02-[address] Dwayne Gibson Work Phone: [facility] Start: 12-26-2021 ambulatory Dwayne Leung MD Work Phone: Gastroenterology Comment on above: schedule upper endos copy Start: 12-25-2021 End: 12-25-2021 ambulatory Dwayne Leung MD Work Phone: Gastroenterology Comment on above: Nodule of intestine (Primary Dx) Start: 12-25-2021 End: 12-25-2021 Telemedicine consultation with patient Dwayne Leung MD Work Phone: [facility] Start: 12-13-2021 End: 12-13-[address] Dwayne Gibson Work Phone: [facility] Work Phone: Start: 12-13-2021 End: 12-13-[address] Dwayne Gibson Work Phone: [facility] Start: 12-10-2021 Non-patient / Non-visit Dr. Dwyane Gibson Work Phone: [facility] Start: 12-10-2021 End: 12-10-[address] Dwayne Gibson Work Phone: [facility] Work Phone: Start: 12-10-2021 End: 12-10-[address] Dwayne Gibson Work Phone: [facility]-Pulmonary Services/Neurology Start: 12-05-2021 End: 12-05-[address] [facility] Work Phone: Start: 12-05-2021 End: 12-05-2021 Patient encounter procedure [facility]-Outpatient Breast Imaging Start: 12-03-2021 End: 12-03-[address] [facility] Work Phone: Start: 12-03-2021 End: 12-03-2021 Patient encounter procedure [facility] Start: 08-06-2021 Telephone encounter Zion Patel MD Work Phone: [facility] Comment on above: Appointment (CONSULT TO GI) Start: 08-01-2021 End: 08-01-2021 Patient encounter procedure [facility] Start: 07-26-2021 End: 07-26-2021 Patient encounter procedure [facility] Start: 07-15-2021 End: 07-15-2021 ambulatory Zion Patel MD Work Phone: [facility] Comment on above: Duodenal mass (Prima ry Dx) Start: 07-15-2021 End: 07-15-2021 Telemedicine consultation with patient Zion Patel MD Work Phone: [facility] Start: 05-23-2021 End: 05-23-2021 Patient encounter procedure [facility]-Cat Scan, [facility] Start: 04-05-2021 End: 04-05-2021 Patient encounter procedure [facility]-Laboratory, Specimen Procedures Date Procedure Procedure Detail Performing Clinician Start: 11-16-[address] Dwayne Gibson MD Work Phone: Start: 11-16-2024 Iadna-dna/rna gi pthgn multiplex probe tq 6-11 Dr. Dwayne Gibson MD Work Phone: Start: 11-16-[address] Dwayne Gibson MD Work Phone: Start: 11-16-[address] Dwayne Gibson MD Work Phone: Start: 11-04-2024 X-ray of ankle, three or more views Dr. Dwayne Gibson MD Work Phone: Start: 11-04-2024 X-ray of foot, three or more views Dr. Dwayne Gibson MD Work Phone: Start: 09-13-2024 Vitamin D, 25-hydroxy measurement Dr. [...] Start: 06-07-2024 Serum inorganic phosphate measurement Dr. Dwyane Gibson MD Work Phone: Start: 06-07-2024 Vitamin [...] 1996 panel - Serum or Plasma Immunization [place] Work Phone: Start: 01-20-2014 Mammography Zion Patel MD Work Phone: H/O: tubal ligation History of t ubal ligation History of appendectomy History of append ectomy History of cholecystectomy History of cholecystectomy Plan of Treatment Date Care Activity Detail Author Start: 11-16-2024 [facility] Start: 11-16-2024 Enteric precautions [facility] Start: 11-16-2024 Enteric Bacteriology Enteric Bacteri ology [facility] Start: 11-04-2024 Application short le g splint calf foot APPLICATION LOWER LEG SPLINT [facility] Start: 11-04-2024 [facility] Start: 06-25-2024 End: 06-25-[address] [facility] Start: 11-28-2021 Influenza vaccination INFLUENZA (#1) [facility] Start: 07-04-2020 Colonoscopy COLONOSCOPY [facility] Start: 07-04-2020 COLORECTAL CANCER SCREENING COLORECTAL CANCER SCREENING [facility] Start: 11-21-2019 Lipid 1996 panel - S sagar or Plasma Lipid Screening [facility] Start: 11-21-2019 LIPID SCREEN LIPID SCREEN [facility] Start: 03-26-2018 DIABETES SCREEN DIABETES SCREEN [facility] Start: 03-26-2018 Diabetes Screening Diabetes Screenin g [facility] Start: 07-12-2017 Urine microalbumin profile [facility] Start: 01-20-2015 Mammography [facility] Start: 12-31-2014 PNEUMOCOCCAL (2 - PCV) PNEUMOCOCCAL (2 - PCV) [facility] Start: 12-31-2014 Pneumococcal vaccination Pneum ococcal Vaccine (2 - PCV) [facility] Start: 07-24-2013 HPV TESTING HPV TESTING [facility] Start: 07-24-2013 PAP TESTING PAP TESTING [facility] Start: 2009 SHINGRIX VACCINE (1 of 2) SHINGRIX VACCINE (1 of 2) [facility] Start: 01-24-2004 COLOGUARD (FIT-DNA) COLOGUARD (FIT-D NA) [facility] Start: 01-24-[address] COLONOGRAPHY [facility] Start: 01-24-2004 FECAL OCCULT BLOOD FECAL OCCULT BLOO D [facility] Start: 01-24-2004 SIGMOIDOSCOPY SIGMOIDOSCOPY [facility] Start: 1977 HEPATITIS C SCREENING HEPATITIS C SC [facility] Start: 1977 HIV SCREENING HIV SCREENING [facility] Nucleic acid assay [facility] Patient Education [facility] Work Phone: Patient referral [facility] Work Phone: End: 02-05-2023 Screening colonoscopy COLONOSCOPY SCREENING Endoscopy Routine Screening for colon cancer 1 Occurrences starting 02/05/2022 until 02/05/2023 [facility] Work Phone: Comment on above: 1 Occurrences starti ng 02/05/2022 until 02/05/2023 [facility] c Immunizations Immunization Date Immunization Notes Care Provider Fa sachincarmel 12-26-2022 influenza, injectabl e, quadrivalent, contains preservative Immunization [place] Work Phone: [facility] Work Phone: 07-07-2020 COVID-19 vaccine, ag e 12+ yr (PFIZER-BIONTECH - PURPLE TOP) Zion Patel MD Work Phone: [facility] 06-16-2020 COVID-19 vaccine, ag e 12+ yr (PFIZER-BIONTECH - PURPLE TOP) Zion Patel MD Work Phone: [facility] Work Phone: 05-28-2020 COVID-19 vaccine, ag e 12+ yr (PFIZER-BIONTECH - PURPLE TOP) Zion Patel MD Work Phone: [facility] 12-31-2013 influenza, seasonal, injectable Zion Patel MD Work Phone: [facility] Work Phone: 12-31-2013 pneumococcal polysaccharide vaccine, 23 valent Zion Patel MD Work Phone: [facility] Work Phone: 02-10-2011 influenza virus vaccine, unspecified formulation Zion Patel MD Work Phone: [facility] 01-04-2009 influenza virus vaccine, unspecified formulation Zion Patel MD Work Phone: [facility] Work Phone: 07-13-2007 diphtheria and tetan us toxoids, adsorbed for pediatric use Zion Patel MD Work Phone: [facility] Work Phone: Payers Date Payer Category Payer Self-pay [id number] 2024 Self-pay [id number] 2013 Private Health Insurance [facility] [employer] [id number] 2013-Present [phone] [address] [address] [place] [address] O [id number] 2013 Private Health Insurance [facility] [facility] [id number] 2013-Present [phone] [address] [address] [place] [address] O [id number] 2002 Unknown [id number] 1960 Unknown [id number] 1960 Unknown [id number] .[id number] Medicare [id number] Unknown [id number] .2.462 Unknown [id number] .2.462 Unknown [id number] [id number] .2.462 Unknown [id number] .2.462 Unknown [id number] [id number] .2.462 Unknown [id number] [id number] .2.462 Unknown [id number] [id number] .2.462 Unknown [id number] [id number] .2.462 Unknown [id number] [id number] .2.462 Unknown [id number] [id number] .2.462 Unknown [id number] [id number] .2.462 Unknown [id number] .2.462 Social History Date Type Detail Facility Start: 03-22-2015 End: 11-28-2024 Tobacco smoking status NHIS Smokes tobacco daily [facility] History of tobacco use Cigarette Smoker C [facility] Start: 03-22-2015 End: 04-25-2022 Cigarettes smoked current (pack per day) - Reported 0.5 [facility] Start: 03-22-2015 End: 06-25-2015 Tobacco use and exposure Smokeless tobacco non-user [facility] Start: 07-15-2021 End: 02-27-2022 Alcohol intake Current drinker of alcohol (finding) [facility] Start: 1960 Sex Assigned At Female [facility] Start: 10-16-2020 End: 04-25-2023 Tobacco smoking status NVIS Unknown if ever smoked [facility] Start: 07-26-2018 None [facility] Start: 06-19-2020 Spouse/ Signif icant Other [facility] Start: 02-07-2019 Cigarettes [facility] Start: 12-13-2021 End: 02-27-2022 Exposure to SARS-CoV-2 (event) Not sure [facility] Start: 02-27-2022 End: 04-25-2022 Tobacco use panel [facility] National Score (1-10 0), lower number is lower risk 51 [facility] Start: 06-04-2020 Gender identity Identifies as female gender (finding) [facility] Start: 06-04-2020 Sexual orientation Heterosexual (fin ding) [facility] Start: 06-17-2024 End: 06-25-2024 Sex Female (finding) [facility] Start: 11-16-2024 Tobacco smoking stat us NHIS Ex-smoker (finding) [facility] Clinical Notes 07-15-2021 to 11-04-2024 Elizabeth Vang RN - 02/27/2022 9:45 AM Kandice Calvo LPN - 02/27/2022 8:19 AM ESTSedation Documentation - Roxanna Gomez RN - 02/27/2022 8:59 AM Adriano Leung MD - 02/27/2022 8:30 AM EST Note Date & Type Note Facility 11-04-2024 Discharge summary [facility] 11-04-2024 Radiology Diagnostic study note [facility] Imaging Services [address] [place], [place] [id number] Foot min 3 Views MR#: [id number] Acct: [id number] Name: ЕКАТЕРИНА BA Rep #: [id number] : 1960 F 64 From: Brenden Yadav MD PCP: Dr. Dwayne Gibson MD Status: ID E ER Study:Foot min 3 Views Date of Exam: 11/21 Exam# [id number] Ordering Dr: Risa Zaldivar DO PROCEDURE: FOOT MIN 3 VIEWS 11/04/2024 REASON FOR EXAM: FALL TECHNIQUE: FOOT MIN 3 VIEWS Laterality: LEFT. COMPARISON: 10/09/2023. FINDINGS: Acute spiral displaced fracture of the distal fibular diaphysis. Calcaneal spur formation. Enthesophyte formation at the calcaneal insertion of Achilles tendon. Normal talus, calcaneus, and tarsal bones. Normal visualized subtalar, talonavicular, calcaneocuboid, tarsal and tarsometatarsal articulations. Normal metatarsi. Normal metatarsophalangeal joint of the great toe. Normal tibial and fibular sesamoid bones. Normal interphalangeal joint of the great toe. Normal phalanges of the great toe. Normal second through fifth metatarsophalangeal joints. Normal interphalangeal joints of the lesser toes. Normal phalanges of the lesser toes. RAD/Foot min 3 Views IMPRESSION: ACUTE SPIRAL DISPLACED FRACTURE OF THE DISTAL FIBULAR DIAPHYSIS. Reading Location: [place] [address] CC: Dr. Dwayne Gibson MD; Dr. Alonso Zaldivar, DO ~ Night Order Selector: Signed [facility] 11-04-2024 Radiology Diagnostic study note [facility] Imaging Services [address] [place] [address] Ankle min 3 Views MR#: [id number] Acct: [id number] Name: ЕКАТЕРИНА BA Rep #: [id number] : 1960 F 64 From: Brenden Yadav MD PCP: Dr. Dwayne Gibson MD Status: ID E ER Study:Ankle min 3 Views Date of Exam: Exam# [id number] Ordering Dr: Risa Zaldivar DO PROCEDURE: ANKLE MIN 3 VIEWS 11/04/2024 REASON FOR EXAM: FALL TECHNIQUE: ANKLE MIN 3 VIEWS Laterality: LEFT COMPARISON: 10/09/2023. FINDINGS: Acute spiral displaced fracture of the distal fibular diaphysis. Overlying soft tissue edema and swelling. Calcaneal spur formation. Enthesophyte formation at the calcaneal insertion of Achilles tendon. Normal visualized distal tibia and medial malleolus. Normal tibiotalar articulation and ankle mortise. Normal visualized talus. Normal visualized calcaneus. The visualized subtalar, talonavicular, calcaneocuboid and tarsal articulations are normal. RAD/Ankle min 3 Views IMPRESSION: Acute spiral displaced fracture of the distal fibular diaphysis. Overlying soft tissue edema and swelling. Reading Location: [place] [address] CC: Dr. Dwayne Gibson MD; Dr. Alonso Zaldivar DO ~ Night Order Selector: Signed [facility] 06-25-2024 Discharge summary [facility] 02-27-2022 Note Q3 Patient Name: Екатерина Ba Procedure Date: 02/27/2022 8:48 AM Date of [...] present medications. Procedure Code(s): --- Professional --- 92617 Diagnosis Code(s): --- Professional --- D17.5 K83.8 R93.5 CPT copyright 2020 [employer]. All rights reserved. Attending Participation: I was present and participated during the entire procedure, including non-hooper portions. Scope In: 9:01:25 AM Scope Out: 9:23:[address] Dwayne Leung MD, MPH Dwayne Leung MD 02/27/2022 9:30:41 AM This report has been signed electronically by Dwayne Leung MD Number of Addenda: 0 Note Initiated On: 02/27/2022 8:[address] [facility] 02-27-2022 Nurse Note AMBULATORY PATIENT EDUCATION NOTE [...] In Department: GASTROENTEROLOGY documented in this encounter [facility] 02-27-2022 Miscellaneous Notes patient removed partial denture in preop area gave to documented in this encounter [facility] 02-27-2022 History and physical note HISTORY AND [...] Leung II, MD documented in this encounter [facility] 02-18-2022 Miscellaneous Notes Attempted to reach the patient at the contact number that they provided [phone] (home) . Unable to speak with patient so without identifying the patient the following information was left on their voice mail: Date of procedure, location and report time Prep instructions A message was left informing the patient/patient passenger representative they must have a responsible adult [...] Number to call with questions or concerns [phone] Number to call to cancel their procedure [phone] Samra Salcedo LPN documented in this encounter [facility] 02-05-2022 Note Patient Outreach ( CIND) -------- ЕКАТЕРИНА BA ([id number]) 1960 F DEF Date Time Provider Department [...] cancer [Z12.11] Order(s):COLONOSCOPY SCREENING [GI51] Order #: [id number] FUTURE Prescriptions as of 02/10/2022 - ACETAMINOPHEN [...] Renal cell carcinoma [C64.9] 04/24/2011 Solitary kidney [ABZ6841] 04/24/2011 Deaf [H91.90] 07/31/2011 Digital nerve laceration, finger [S64.40XA] 12/02/2012 Laceration of thumb with tendon involvement [S6*12/02/2012 Impingement syndrome of right shoulder [M75.41] 01/13/2013 Bilateral hearing loss [H91.93] 06/25/2015 GERD (gastroesophageal reflux disease) [K21.9] 06/25/2015 Encounter Status:Closed by [employer], [employer] on 02/10/[address] [facility] 01-01-[address] Leung can you place the order for the upper endoscopy so she can get scheduled? Thank you, Doris Roper Bilingual Hr Generalist documented in this encounter [facility] 12-25-2021 History of Present illness Narrative VIRTUAL VISIT PROGRESS NOTE This is a virtual visit using [employer] video visit. It required patient-provider interaction for [...] her to reach out to me via [employer], if not scheduled within the next 24 [...] and tendon repair; done at hospital in [place] PAST SURGICAL HISTORY OF 12/2014 Hysteroscopy, D&C [...] the date of the service which included [id number] patient care Answers submitted by the patient [...] with oil: No documented in this encounter [facility] 08-06-2021 Miscellaneous Notes LEFT MESSAGE FOR PATIENT THAT WE HAVE BEEN IN CLOSE CONTACT WITH DR. MORALES'S OFFICE, HE HAS AGREED TO DO THE EUS/FNA, BUT HE IS NEEDING TO LOOK FURTHER INTO HER RECORDS BEFORE SCHEDULING PROCEDURE. LEFT PHONE TO DR. MORALES'S OFFICE FOR PATIENT TO CALL FOR UPDATES. Ángela Richter LPN documented in this encounter [facility] 07-15-2021 Note HNO ID: [id number] Author: Zion Patel MD Service: ? Author Type: Physician Type: Progress Notes Filed: 07/15/2021 2:17 PM Note Text: Zion Patel M.D. Surgical Oncology 1 [facility], [place] [id number] TELEPHONE VISIT NOTE GREGORY Ba is a 61 year old female [...] evaluation at the request of her local zipper lining folder. Currently, patient reports that overall she is [...] Zion Patel MD 07/15/2021 10:50 AM [facility] 07-15-2021 History of Present illness Narrative Images from the original note were not included. Zion Patel M.D. Surgical Oncology 1 [facility], [address] [address] TELEPHONE VISIT NOTE GREGORY Ba is a 61 year old female [...] evaluation at the request of her local zipper lining folder. Currently, patient reports that overall she is [...] 07/15/2021 10:50 AM documented in this encounter [facility] Discharge summary Note Date/Time June 25, 2024 11:11am [facility] Medical Records Department [address] [place] [address] Emergency Department Summary 06/25/24 MR#: [id number] Acct: [id number] Name: ЕКАТЕРИНА BA Rep #:[id number] : 1960 64 From: Odilon Guillaume MD PCP: Dr. Dwayne Gibson MD Status:ID E ER Location: ED HPI <Brandy Alejo [...] Prior similar symptoms: No Recent Illness/Hospitalization: No [facility] <Brandy Alejo RN - Last Filed: 06/25/24 11:10> [facility] Medical History Hiatal hernia Chronic gastritis GERD [...] Alejo RN - Last Filed: 06/25/24 11:10> [facility] Narrative Medical decision making narrative: This appears [...] Guillaume MD - Last Filed: 06/25/24 11:11> [facility] MDM Narrative Medical decision making narrative: I have [...] all 4 extremities. 5 out of 5 assistant controller strength. Strong radial pulse. Dorsi plantarflexion intact. [...] your doctor if not improving. Print Language: Citizen [place] Disposition Disposition: Home, Self Care What to do if you have Problems For any increased pain, shortness of breath, bleeding, nausea or vomiting, chestpain, or any unexpected problems, contact your Primary Care Provider. Call [facility] ([phone]) or report to the closest Emergency Room. Call 911 if necessary. 06/25/24 1111 <Electronically signed by Odilon Guillaume MD> Cosigner Signature (if applicable): CC: Dr. Dwayne Gibson MD ~ Signed [facility] Work Phone: Discharge summary Author Alonso Zaldivar [facility] Note Date/Time November 04, 2024 7:1 1am [facility] Medical Records Department [address] [place] [address] Emergency Department Summary 11/04/24 MR#: [id number] Acct: [id number] Name: ЕКАТЕРИНА BA Rep #:[id number] : 1960 64 From: Alonso Zaldivar DO PCP: Dr. Dwayne Gibson MD Status:RE G ER Location: ED HPI History of Present Illness Chief Complaint: Lower Extremity Injury Narrative Narrative: Patient is a 64-year-old female with past medical history of GERD with esophagitis, hyperlipidemia, who presented to the emergency department chief complaint of left foot and ankle pain. Patient states that she got up to go thebathroom and noted that she knew the computer screen was on downstairs and went downstairs to turn this off. States that when she got to the second to last step she missed stepped causing her to twist her ankle. States that she was unable to bear weight therefore she came here for further evaluation management. Patient states that she not hit her head she not passed out she denies any blood thinner medications [facility] Medical History Hiatal hernia Chronic gastritis GERD with esophagitis Abdominal pain Abnormal CT scan, gastrointestinal tract Hyperlipidemia Diverticulosis Gastric ulcer Sacroiliitis Tobacco abuse GERD (gastroesophageal reflux disease) Home Medications ?Medication ?Instructions ?Recorded ?Last Taken ?Type omeprazole 20 mg capsule,delayed 20 mg PO DAILY 02/08/19 05:00 History release alendronate 70 mg tablet 70 mg PO QWEEK 06/25/24 Unkn own History rosuvastatin 20 mg tablet 20 mg PO QPM 06/25/24 Unknow n History valsartan 80 mg tablet 80 mg PO DAILY 06/25/24 Unkn own History dicyclomine 20 mg tablet 20 mg PO BID PRN abdominal p ain 11/04/24 Unknown History metformin 500 mg tablet 500 mg PO BID 11/04/24 Unkno wn History ondansetron 4 mg disintegrating 4 mg PO Q6H PRN nausea and 11/04/24 Unknown Rx tablet vomiting #20 tabs oxycodone-acetaminophen 5 mg-325 1 tab PO Q6H PRN pain 3 days #12 11/04/24 Unkn own Rx mg tablet (Endocet) tabs Allergy/AdvReac Type Severity Reaction Status Date / Time No Known Allergies Allergy Verified 11/04/24 06:18 Family History Father Myocardial infarction Heart disease Colon cancer Mother Cancer duodenal Surgical History History of colonoscopy (~2015) History of esophagogastroduodenoscopy (EGD) (~2008) History of left nephrectomy History of tubal ligation history of lysis of adhesions History of cholecystectomy History of appendectomy Social History Smoking Status: Current every day smoker tobacco type: cigarettes ROS ROS ED ROS Narrative Constitutional: Denies headache, fever, chills, lightness, dizziness Eyes: Denies double vision Cardiovascular: Denies chest pain Respiratory: Denies shortness of breath Neurological: Denies any numbness or tingling Musculoskeletal: Complains of left foot and ankle pain as noted above Skin: Denies any rashes or lesions EXAM Physical Exam Narrative Exam Narrative: General: Patient lying in bed rest comfortably did not appear to be in acute distress Head: Atraumatic, normocephalic Eyes: PERRL bilaterally, EOMI bilaterally, no conjunctival injection noted Neck: Soft, supple, trachea midline Cardiovascular: Regular rate and rhythm Respiratory: Clear to auscultation bilaterally Abdomen: No tenderness to palpation Musculoskeletal: Patient has tenderness palpation of the left foot on the lateral aspect as well as the medial and lateral malleolus. All of the bony prominence palpated joints taken through full range of motion no pain elicited Extremities: DP pulses +2/4 in the bilateral lower extremities Neurological: Patient following commands knew that she was at [facility] the year is 2024 Skin: Warm, dry, tact no rashes or lesions noted Const Vital Signs: 11/04/24 06:19 Temperature 97.9 F Temperature Source Oral Pulse Rate 86 Respiratory Rate 19 H Blood Pressure 143/71 H Blood Pressure Mean 95 Pulse Ox 97 Oxygen Delivery Method Room Air MDM MDM MDM Narrative Medical decision making narrative: Patient is a 64-year-old female who presented to the emergency department with achief complaint of left foot and ankle pain. On the differential diagnosis includes but not limited to ankle sprain, lateral malleolus fracture, medial malleolus fracture, metatarsal fracture. Once the workup is obtained reviewed she will be reevaluated. Patient's foot and ankle x-ray reviewed by myself and by radiology which showed a acute spiral displaced fracture of the distal fibular diaphysis. Patient was placed in splint see procedure note for separate details. Did discuss case withorthopedics. Patient was advised to follow-up in outpatient setting and remain nonweightbearing she was advised to keep the splint dry and clean. She was advised to rotate Tylenol and ibuprofen [id number] for mild to moderate pain and use the Endocet and Zofran for severe pain. She is agreeable this planall question concerns answered she was discharged home in stable condition. Procedure note Procedure: AO splint Indication: Acute spiral displaced fracture of the distal fibula Procedure: Patient had Webril applied to the left lower extremity followed by plaster followed by Webril and ultimately kait wrap. Mold was applied. Patient remained neurovascularly intact. Patient tolerated procedure well no complications. Radiography Diagnostic Testing: Clinical Impression(s) from Imaging Studies Ankle X-Ray 11/04/24 06:33 IMPRESSION: Acute spiral displaced fracture of the distal fibular diaphysis. Overlying soft tissue edema and swelling. Reading Location: [id number] Foot X-Ray 11/04/24 06:33 IMPRESSION: ACUTE SPIRAL DISPLACED FRACTURE OF THE DISTAL FIBULAR DIAPHYSIS. Reading Location: [id number] Discharge Plan Triage Chief Complaint: Lower Extremity Injury ED Provider: Alonso Zaldivar Dx/Rx/DC Orders Clinical Impression: Fall, Closed left fibular fracture Prescriptions: New oxycodone-acetaminophen [Endocet] 5-325 mg tablet 1 tab PO Q6H PRN (Reason: pain) 3 Days Qty: 12 0RF ondansetron 4 mg tablet,disintegrating 4 mg PO Q6H PRN (Reason: nausea and vomiting) Qty: 20 0RF No Action omeprazole 20 mg capsule,delayed release(DR/EC) 20 mg PO DAILY alendronate 70 mg tablet 70 mg PO QWEEK valsartan 80 mg tablet 80 mg PO DAILY rosuvastatin 20 mg tablet 20 mg PO QPM metformin 500 mg tablet 500 mg PO BID dicyclomine 20 mg tablet 20 mg PO BID PRN (Reason: abdominal pain) Primary Care Provider: Dwayne Gibson Referrals: Dwayne Gibson MD [Primary Care Provider] - Fletcher Awan MD [Med Staff - Active Staff] - Activity Restrictions/Additional Instructions: When sitting you can ice through the splint. Keep the splint dry do not get this wet. Rotate Tylenol and ibuprofen [id number]-[id number] for mild to moderate pain when you do this he can take something every 3 hours with a max dose Tylenol in 24 hours 4000 mg and the max dose of ibuprofen in 24 hours 3200 mg. Use the Endocet and Zofran for severe pain. Do not operate anything under the influence of the narcotic. Follow-up with Dr. Awan in the outpatient setting. Return with worsening symptoms or any concerns. Do not put weight on this foot. Print Language: Citizen [place] Disposition Disposition: Home, Self Care What to do if you have Problems For any increased pain, shortness of breath, bleeding, nausea or vomiting, chestpain, or any unexpected problems, contact your Primary Care Provider. Call [facility] ([phone]) or report to the closest Emergency Room. Call 911 if necessary. 11/04/24 0711 <Electronically signed by Alonso Zaldivar DO> Cosigner Signature (if applicable): CC: Dr. Dwayne Gibson MD ~ Signed [facility] Work Phone: Evaluation note* Diagnosis Duodenal mass- Primary Other specified disorder of stomach and duodenum documented in this encounter [facility] noteNo assessment information availableWooNorwalk [facility] Work Phone: Evaluation note* Diagnosis Nodule of intestine- Primary [facility] [place] [facility] Diagnosis Screening for colon cancer Special screening for malignant neoplasms, colon documented in this encounter [facility] note* Diagnosis Duodenal nodule- Primary Other specified disorder of stomach and duodenum Dilated bile duct Other specified disorders of biliary tract documented in this encounter [facility] note* Diagnosis Onset Date Resolution Status Urinary tract infection none active [facility] Work Phone: Hospital Discharge instructions Additional [...] improvement. Follow-up with your doctor if not improving.[facility] Work Phone: Hospital Discharge instructionsAdditional Instructions When sitting you can ice through the splint. Keep the splint dry do not get this wet. Rotate Tylenol and ibuprofen [id number]-hqo-pcela for mild to moderate pain when you do this he can take something every 3 hours with a max dose Tylenol in 24 hours 4000 mg and the max dose of ibuprofen in 24 hours 3200 mg. Use the Endocet and Zofran for severe pain. Do not operate anything under the influence of the narcotic. Follow-up with Dr. Awan in the outpatient setting. Return with worsening symptoms or any concerns. Do not put weight on this foot.[facility] Work Phone: Hospital Discharge instructionsAdditional Instructions Creatinine 1.08 with GFR 57. C. difficile negative. Stool studies pending. Continue oral fluids for hydration. Use Lomotil as prescribed. Follow-up with your doctor.[facility] Work Phone: Reason for referral (narrative)* Outpatient Procedure (Routine) - Pending Review Specialty Diagnoses / Procedures Referred By Georges rodriguez Referred To Contact [facility] Diagnoses Screening for colon cancer Procedures COLONOSCOPY SCREENING COLONOSCOPY FLX DX W/COLLJ SPEC WHEN PFRMD Guille Conde MD [address] [place] [address] [facility] [place] [address] [place] [address] Referral ID Status Reason Start Date Expiration Date Visits Requested Visits Authorized [id number] Pending Review Auto-Generat ed Referral 02/05/2022 02/05/2023 1 [facility] Outpatient Procedure (Routine) - Closed Specialty Diagnoses / Procedures Referred By Georges rodriguez Referred To Contact ENDOSCOPY Diagnoses Duodenal nodule Dilated bile duct Procedures EGD - THERAPEUTIC, EUS, OR TUBE INTERVENTIONS EGD INTRMURAL US NEEDLE ASPIRATE/BIOPSY ESOPHAGS Dwayne Leung MD [address] [place] [address] [facility] [address] [place] [id number] Referral ID Status Reason Start Date Expiration Date V isits Requested Visits Authorized [id number] Closed Auto-Generate d Referral 01/01/2022 01/01/2023 1 1 [facility]No reason for referral information availableWParkwood Hospital Work Phone: Reason for visit Narrative* Outpatient Procedure (Routine) - Closed Specialty Diagnoses / Procedures Referred By Georges rodriguez Referred To Contact ENDOSCOPY Diagnoses Duodenal nodule Dilated bile duct Procedures EGD - THERAPEUTIC, EUS, OR TUBE INTERVENTIONS EGD INTRMURAL US NEEDLE ASPIRATE/BIOPSY ESOPHAGS Dwayne Leung MD [address] [place] [address] [facility] [address] [place] [phone] Referral ID Status Reason Start Date Expiration Date V isits Requested Visits Authorized [id number] Closed Auto-Generate d Referral 01/01/2022 01/01/2023 1 1 [facility] Advance Directives No Advanced Directives Records FoundDocuments on File Type Date Recorded Patient 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 No June 25, 2024 10:34am Advance Directive Response Recorded Date/ Time Do you have a Healthcare Power of C Software Developer? No November 04, 2024 6:22am Advance Directive Response Recorded Date/ Time Do you have a Healthcare Power of C Software Developer? No November 04, 2024 6:22am Do you have a Healthcare Power of C Software Developer? No November 16, 2024 5:32pm Chief Complaint and Reason for Visit Chief [...] 3pm Chief Complaint Admit Date SCREENING [employer] June 15, 2024 2:0 3pm BACK PAIN June 25, 2024 10: 30am Chief Complaint Admit Date CKD October 03, 2024 8:45a m Chief Complaint Admit Date CKD October 03, 2024 8:45a m CKD November 01, 2024 8:4 8am lefty foot November 04, 2024 6:1 7am Chief Complaint Admit Date CKD October 03, 2024 8:45a m CKD November 01, 2024 8:4 8am lefty foot November 04, 2024 6:1 7am DIARRHEA November 16, 2024 5: 24pm Family History No Family History Records Found [...] Starting on Andreina 02/27/22 at 0830, Until Thu02/28/22 at 0417, Preprocedure New Bag/Syringe/Bottle 02/27/2022 8:30 AM EST 30 mL/hr 30 mL/hr Additional Source Comments Source Comments (unrecognize d section and content) In the event this informatio n is protected by the Federal Confidentiality of Alcohol and Drug Abuse Patient Records regulations: The Federal rules restrict any use of the information to criminally investigate or prosecute any alcohol or drug abuse patient.[facility] the event this information is protected by the Federal Confidentiality of Alcohol and Drug Abuse Patient Records regulations: The Federal rules restrict any use of the information to criminally investigate or prosecute any alcohol or drug abuse patient.[facility] the event this information is protected by the Federal Confidentiality of Alcohol and Drug Abuse Patient Records regulations: The Federal rules restrict any use of the information to criminally investigate or prosecute any alcohol or drug abuse patient.[facility] Hospital[facility] the event this information is protected by the Federal Confidentiality of Alcohol and Drug Abuse Patient Records regulations: The Federal rules restrict any use of the information to criminally investigate or prosecute any alcohol or drug abuse patient.[facility] the event this information is protected by the Federal Confidentiality of Alcohol and Drug Abuse Patient Records regulations: The Federal rules restrict any use of the information to criminally investigate or prosecute any alcohol or drug abuse patient.[facility] Hospital[facility] the event this information is protected by the Federal Confidentiality of Alcohol and Drug Abuse Patient Records regulations: The Federal rules restrict any use of the information to criminally investigate or prosecute any alcohol or drug abuse patient.[facility] the event this information is protected by the Federal Confidentiality of Alcohol and Drug Abuse Patient Records regulations: The Federal rules restrict any use of the information to criminally investigate or prosecute any alcohol or drug abuse patient.[facility] the event this information is protected by the Federal Confidentiality of Alcohol and Drug Abuse Patient Records regulations: The Federal rules restrict any use of the information to criminally investigate or prosecute any alcohol or drug abuse patient.[facility] Reason for Visit (unrecogniz ed section and content) Reason Comments Mass Reason Comments Appointment CONSULT TO GI Reason Comments duodenal nodule Reason Comments Appointment Care Teams (unrecognized sec tion and content) Supervisor Screen Printing Relationship Specialty Start Date End Date Guille Conde MD [address] [place], [place] [id number] PCP - General Family Practice 09/18/14 Dwayne Gibson [address] [place], [place] [id number] Referring Family Practice 01/03/21 Brian Zaldivar MD [address] [place] [address] Referring Gastroenterology 01/03/21 Zion Patel MD 1 [facility], [place] [id number] Consulting General Surgery 07/15/21 Supervisor Screen Printing Relationship Specialty Start Date End Date Guille Conde MD [address] [facility] [place] [address] PCP - General Family Practice 09/18/14 Dwayne Gibson [address] [facility] [address] [place] [address] Referring Family Practice 01/03/21 Brian Zaldivar MD [address] [place] [address] Referring Gastroenterology 01/03/21 Zion Patel MD 1 [facility], [place] [id number] Consulting General Surgery 07/15/21 Supervisor Screen Printing Relationship Specialty Start Date End Date Guille Conde MD [address] [facility] [place] [address] PCP - General Family Medicine 09/18/14 Dwayne Gibson [address] [facility] [address] [place] [address] Referring Family Medicine 01/03/21 Brian Zaldivar MD [address] [place] [address] Referring Gastroenterology 01/03/21 Zion Patel MD 1 [facility] [place] [address] Consulting General Surgery 07/15/21 Supervisor Screen Printing Relationship Specialty Start Date End Date Guille Conde MD [address] [facility] [place] [address] PCP - General Family Medicine 09/18/14 Dwayne Gibson [address] [facility] [address] [place] [address] Referring Family Medicine 01/03/21 Brian Zaldivar MD [address] [place] [address] Referring Gastroenterology 01/03/21 Zion Patel MD 1 [facility] [place] [address] Consulting General Surgery 07/15/21 Supervisor Screen Printing Relationship Specialty Start Date End Date Guille Conde MD [address] [facility] [place] [address] PCP - General Family Medicine 09/18/14 Dwayne Gibson [address] [facility] [address] [place] [address] Referring Family Medicine 01/03/21 Brian Zaldivar MD [address] [place] [address] Referring Gastroenterology 01/03/21 Zion Patel MD 1 [facility] [place] [address] Consulting General Surgery 07/15/21 Supervisor Screen Printing Relationship Specialty Start Date End Date Guille Conde MD [address] [facility] [place] [address] PCP - General Family Medicine 09/18/14 Dwayne Gibson [address] [facility] [address] [place] [address] Referring Family Medicine 01/03/21 Brian Zaldivar MD [address] [place] [address] Referring Gastroenterology 01/03/21 Zion Patel MD [address] [place] [address] Consulting General Surgery 07/15/21 Supervisor Screen Printing Relationship Specialty Start Date End Date Guille Conde MD [address] [place], [place] [address] PCP - General Family Medicine 09/18/14 Dwayne Gibson [address] [facility] [address] [place] [address] Referring Family Medicine 01/03/21 Brian Zaldivar MD [address] [place] [address] Referring Gastroenterology 01/03/21 Zion Patel MD [address] [place], [place] [id number] Consulting General Surgery 07/15/21 Team Status: Active [...] Primary Care Provider, Attend ing Provider Active Supervisor Screen Printing Relationship Specialty Start Date End Date Dwayne Gibson MD [address] [facility] [address] [place] [address] Referring Family Medicine 01/03/21 Brian Zaldivar MD [address] [place] [address] Referring Gastroenterology 01/03/21 Zion Patel MD [address] [place] [address] [facility] General Surgery 07/15/21 Team Status: Inactive Member Role Status Dates Dr. Dwayne Gibson MD Primary Care Provider, Referr ing [...] 25, 2024 End: June 25, 2024 Dr. Odlion Guillaume MD Emergency Provider Active S tart: [...] October 03, 2024 End: October 27, 2024 Team Status: Active Member Role/Relationship Status Dates Dr. Dwayne Gibson MD Primary Care Provider Active Start: November 01, 2024 Dr. Dwayne Gibson MD Attending Provider Active Start: November 01, 2024 Dr. Dwayne Gibson MD Referring Provider Active Start: November 01, 2024 Team Status: Inactive Member Role/Relationship Status Dates Dr. Dwayne Gibson MD Primary Care Provider Active Start: November 04, 2024 End: November 04, 2024 Dr. Alonso Zaldivar DO Emergency Provider Active Start: November 04, 2024 End: November 04, 2024 Team Status: Inactive Member Role/Relationship Status Dates Dr. Dwayne Gibson MD Primary Care Provider Active Start: November 04, 2024 End: November 04, 2024 Dr. Alonso Zaldivar DO Attending Provider Active Start: November 04, 2024 End: November 04, 2024 Dr. Alonso Zaldivar DO Emergency Provider Active Start: November 04, 2024 End: November 04, 2024 Team Status: Inactive Member Role/Relationship Status Dates Dr. Dwayne Gibson MD Primary Care Provider Active Start: November 16, 2024 End: November 16, 2024 Dr. Deon Julien DO Emergency Provider Active Start : November 16, 2024 End: November 16, 2024 Team Status: Inactive Member Role/Relationship Status Dates Dr. Dwayne Gibson MD Primary Care Provider Active Start: November 01, 2024 End: November 27, 2024 Dr. Dwayne Gibson MD Attending Provider Active Start: November 01, 2024 End: November 27, 2024 Dr. Dwayne Gibson MD Referring Provider Active Start: November 01, 2024 End: November 27, 2024 Team Status: Inactive Member Role/Relationship Status Dates Dr. Dwayne Gibson MD Primary Care Provider Active Start: November 16, 2024 End: November 16, 2024 Dr. Deon Julien DO Attending Provider Active Start : November 16, 2024 End: November 16, 2024 Dr. Deon Julien DO Emergency Provider Active Start : November 16, 2024 End: November 16, 2024 Goals (unrecognized section and content) Goals [...] section and content) DATE CREATED AUTHOR 08/08/2021 [facility] DATE CREATED AUTHOR AUTHOR'S ORGANIZ ATION 01/02/[address] [facility] DATE CREATED AUTHOR AUTHOR'S ORGANIZ ATION 11/16/2024 [facility] DATE CREATED AUTHOR AUTHOR'S ORGANIZ ATION 01/22/2025 [facility] FOR RECORDS PERTAINING TO PATIENTS WHO ARE [...] BE BASED ON THE PRIMARY CLINICAL RECORDS. [facility] [employer] [facility]. provides no warranty or guarantee of the accuracy or completeness of information in this document.
== END | disposition home or self-care (01) ==
LOC: US 12:16
PROVIDERS: PCP Family Medicine; Referring Provider Family Medicine; Visit Provider Family Medicine
DX: E04.1 Nontoxic single thyroid nodule (principal)
CPT/HCPCS: 76536

== ENCOUNTER → 2025-03-03 | Outpatient (CLI) | payer MEDICARE, SELFPAY ==
--- NOTE | 2025-03-03 17:00 | CT_ITS ---
PROCEDURE: CHEST WITHOUT CONTRAST 03/03/2025 REASON FOR EXAM: NODULE. History of renal cell carcinoma, status post left nephrectomy. TECHNIQUE: Chest CT without contrast. Coronal and Sagittal reconstruction series were provided. One or more dose reduction techniques were used (e.g., Automated exposure control, adjustment of the mA and/or kV according to patient size, use of iterative reconstruction technique RADIATION DOSE SUMMARY: CTDlvol: 12.78 mGy DLP: 440.77 mGycm COMPARISON: CT chest without contrast, 10/09/2023. FINDINGS: PULMONARY NODULES: (Only nodules >3mm are reported) Lower neck:The thyroid gland is mildly enlarged without discrete nodules. There is no supraclavicular lymphadenopathy. Mediastinum:There are few, non pathologically enlarged, mediastinal lymph nodes. Heart and thoracic aorta:The heart size is normal. There is no pericardial effusion. There is moderate calcific vascular disease of the coronary arteries and thoracic aorta. Esophagus:There is a small hiatal hernia. Upper Abdomen:There is a 1.3 cm in diameter nodule in the right adrenal gland demonstrating an average density of -1 HU, consistent with a benign lipid rich adenoma. Status post cholecystectomy. Status post left nephrectomy. There is calcific vascular disease of the visualized abdominal aorta. Chest wall:The visualized soft tissues of the chest wall are unremarkable. There is no axillary lymphadenopathy. There is moderate multilevel degenerative disc disease of the thoracic spine. Lungs, airways and pleura: There is mild upper lobe predominant centrilobular emphysema. There is tubular bronchiectasis with mild peribronchial scarring in the middle lobe of the right lung in the inferior segment of the lingula. There is a stable 3 x 3 mm mixed density nodule in the lower lobe of the right lung (image 64). There is a 1.3 x 1.2 cm (was 10 x 9 mm). Soft tissue density nodule in the lower lobe of the right lung (image 66). There is a stable 4 x 3 mm mixed density nodule in the lower lobe of the right lung (image 68). There is a stable 4 x 3 mm ground-glass opacity nodule in the middle lobe of the right lung (image 71). CT/Chest without Contrast IMPRESSION: 1. Soft tissue density nodule in the lower lobe of the right lung which contin ues to grow. 2. There are multiple small stable pulmonary nodules. There are no new pulmon consuelo nodules are identified. 3. Emphysema. 4. Calcific vascular disease. 5. Other findings as noted. Recommendation: PET-CT. Reading Location: [place] [id number]
--- OUTSIDE RECORDS SUMMARY | 2025-03-03 17:15 | XMS RPT_ITS | CCD ---
Author Organization [facility] Care Team Providers Care Picker Operator Name Role Phone Guille Conde MD Primary Care Provider Dwayne Gibson Unavailable [phone] Brian Zaldivar MD Unavailable Zion Patel MD [...] Dr. Dwayne Gibson Primary Care Provider [phone] Dr. Dwayne Gibson Referring Provider MARILYN Spivey Attending Provider Dr. Dwayne Gibson Primary Care Provider Dr. Dwayne Gibson Referring Provider MARILYN Spivey Attending Provider Paige BANEGAS, Dr. Dwayne Portillo Primary Care Provider [phone] Paige BANEGAS, Dr. Dwayne Portillo Attending Provider Paige BANEGAS, Dr. Dwayne Portillo Referring Provider Markell BANEGAS, Dr. Donald Emergency Provider [phone] Paige BANEGAS, Dr. Dwayne Portillo Primary Care Provider Paige BANEGAS, Dr. Dwayne Portillo Attending Provider Paige BANEGAS, Dr. Dwayne Portillo Referring Provider Markell BANEGAS, Dr. Donald Attending Provider Paige BANEGAS, Dr. Dwayne Portillo Primary Care Provider [phone] Paige BANEGAS, Dr. Dwayne Portillo Attending Provider Paige BANEGAS, Dr. Dwayne Portillo Referring Provider Dr. Alonso Zaldivar DO Emergency Provider FLETCHER AWAN DR Attending Unavailable FLETCHER AWAN DR Primary Care Unavailable FLETCHER AWAN DR Admitting Unavailable PATTIE ARMIJO PAC Admitting Unavailable PATTIE ARMIJO PAC Attending Unavailable PATTIE ARMIJO PAC Primary Care Unavailable Dr. Alonso Zaldivar DO Attending Provider Dr. Deon Julien DO Emergency Provider [phone] Deon Julien DO Attending Provider [phone] Dwayne Gisbon Primary Care Unavailable Dwayne Gibson Attending Unavailable [...] Doxycycline; Translations: [DOXYCYCLINE] Drug Allergy 5 Diarrhea [facility] Work Phone: (9 sources) Seasonal allergy; Translations: [SEASONAL ALLERGIES] Allergy to substance 4 Other: See Comments [facility] Medications Current Medications Medication Drug Class(es) [...] on above: Take 1 capsule by [facility] four times daily as needed. metFORMIN hydrochloride [...] January 10, 2019 January 15, 2019 12:09am [id number] 200 actuat albuterol 0.09 mg/actuat metered dose [...] Comment on above: Take 1 capsule by [facility] three times daily as needed. cephalexin 500 [...] Absolute Lymph 1.98 X10 3/uL Normal 0.83-4.51 [facility] Comment on above: Order Comment: Order Date: 03/18/24 Order Info: 0184 - CBCD Performed By: #### L 501.5200, L500.4100, L509.1000, L501.9985, L100.0100, L501.2300, L500.4050 #### [facility] [address] [place], [place], [phone] Absolute Neut 5.7 X10 3/uL Normal 2.0-7.7 [facility] Comment on above: Order Comment: Order Date: 03/18/24 Order Info: 01806-28 - CBCD Performed By: #### L 501.5200, L500.4100, L509.1000, L501.9985, L100.0100, L501.2300, L500.4050 #### [facility] [address] [place], [place], [phone] Basophils/100 WBC (Bld) 0.8 % Normal 0-1 [facility] Comment on above: Order Comment: Order Date: 03/18/24 Order Info: 0184 - CBCD Performed By: #### L 501.5200, L500.4100, L509.1000, L501.9985, L100.0100, L501.2300, L500.4050 #### [facility] [address] [place], [place], [phone] Eosinophils/100 WBC (Bld) 2.4 % Normal 0-5 [facility] Comment on above: Order Comment: Order Date: 03/18/24 Order Info: 0184-1 - CBCD Performed By: #### L 501.5200, L500.4100, L509.1000, L501.9985, L100.0100, L501.2300, L500.4050 #### [facility] [address] [place], [address] Erythrocyte distribution width (RBC) [Ratio] 13.8 % Normal 11.6-14.6 [facility] Comment on above: Order Comment: Order Date: 03/18/24 Order Info: 0184- - CBCD Performed By: #### L 501.5200, L500.4100, L509.1000, L501.9985, L100.0100, L501.2300, L500.4050 #### [facility] [address] [place], [place], [phone] Hematocrit (Bld) [Volume fraction] 43.6 % Normal 37-47 [facility] Comment on above: Order Comment: Order Date: 03/18/24 Order Info: 0184-1 - CBCD Performed By: #### L 501.5200, L500.4100, L509.1000, L501.9985, L100.0100, L501.2300, L500.4050 #### [facility] [address] [place], [place], [phone] Hemoglobin (Bld) [Mass/Vol] 14.1 g/dL Normal 12.0-15.0 [facility] Comment on above: Order Comment: Order Date: 03/18/24 Order Info: 0184-1 - CBCD Performed By: #### L 501.5200, L500.4100, L509.1000, L501.9985, L100.0100, L501.2300, L500.4050 #### [facility] [address] [place], [place], [phone] IG% 0.600 Normal 0.0-0.9 [facility] Comment on above: Order Comment: Order Date: 03/18/24 Order Info: 01806-28 - CBCD Result Comment: IG% - Immature Granulocytes (promyelocytes, myelocytes and metamyelocytes) > 1% indicates that a LEFT SHIFT is Present. Performed By: #### L 501.5200, L500.4100, L509.1000, L501.9985, L100.0100, L501.2300, L500.4050 #### [facility] [address] [place], [address] Lymphocytes/100 WBC (Bld) 23.6 % Normal 19-41 [facility] Comment on above: Order Comment: Order Date: 03/18/24 Order Info: 01806-28 - CBCD Performed By: #### L 501.5200, L500.4100, L509.1000, L501.9985, L100.0100, L501.2300, L500.4050 #### [facility] [address] [facility] [place] [place], [address] MCH (RBC) [Entitic mass] 28.8 pg Normal 27.0-32.0 [facility] Comment on above: Order Comment: Order Date: 03/18/24 Order Info: 01806-28 - CBCD Performed By: #### L 501.5200, L500.4100, L509.1000, L501.9985, L100.0100, L501.2300, L500.4050 #### [facility] [address] [facility] [place] [place], [address] MCHC (RBC) [Mass/Vol] 32.3 g/dL Normal 32-36 [facility] Comment on above: Order Comment: Order Date: 03/18/24 Order Info: 01806-28 - CBCD Performed By: #### L 501.5200, L500.4100, L509.1000, L501.9985, L100.0100, L501.2300, L500.4050 #### [facility] [address] [place], [address] MCV (RBC) [Entitic vol] 89.0 fL Normal 81-99 [facility] Comment on above: Order Comment: Order Date: 03/18/24 Order Info: 0184-1 - CBCD Performed By: #### L 501.5200, L500.4100, L509.1000, L501.9985, L100.0100, L501.2300, L500.4050 #### [facility] [address] [place], [address] Monocytes/100 WBC (Bld) 5.2 % Normal 0-10 [facility] Comment on above: Order Comment: Order Date: 03/18/24 Order Info: 0184-1 - CBCD Performed By: #### L 501.5200, L500.4100, L509.1000, L501.9985, L100.0100, L501.2300, L500.4050 #### [facility] [address] [place], [address] Neutrophils/100 WBC (Bld) 67.4 % Normal 47-70 [facility] Comment on above: Order Comment: Order Date: 03/18/24 Order Info: 0184-1 - CBCD Performed By: #### L 501.5200, L500.4100, L509.1000, L501.9985, L100.0100, L501.2300, L500.4050 #### [facility] [address] [place], [address] Nucleated RBC (Bld) [#/Vol] 0 10*3/uL Normal 0-5 [facility] Comment on above: Order Comment: Order Date: 03/18/24 Order Info: 0184-1 - CBCD Performed By: #### L 501.5200, L500.4100, L509.1000, L501.9985, L100.0100, L501.2300, L500.4050 #### [facility] [address] [place], [address] Platelet mean volume (Bld) [Entitic vol] 9.8 fL Normal 6.2-12.0 [facility] Comment on above: Order Comment: Order Date: 03/18/24 Order Info: 0184-1 - CBCD Performed By: #### L 501.5200, L500.4100, L509.1000, L501.9985, L100.0100, L501.2300, L500.4050 #### [facility] [address] [place], [address] Platelets (Bld) [#/Vol] 301 10*3/uL Normal 150-450 [facility] Comment on above: Order Comment: Order Date: 03/18/24 Order Info: 0184- - CBCD Performed By: #### L 501.5200, L500.4100, L509.1000, L501.9985, L100.0100, L501.2300, L500.4050 #### [facility] [address] [place], [address] RBC (Bld) [#/Vol] 4.90 10*6/uL Normal 4.2-5.4 [facility] Comment on above: Order Comment: Order Date: 03/18/24 Order Info: 0184-1 - CBCD Performed By: #### L 501.5200, L500.4100, L509.1000, L501.9985, L100.0100, L501.2300, L500.4050 #### [facility] [address] [place], [address] RDW SD 45.1 fl High 35.1-43.9 [facility] Comment on above: Order Comment: Order Date: 03/18/24 Order Info: 0184-1 - CBCD Performed By: #### L 501.5200, L500.4100, L509.1000, L501.9985, L100.0100, L501.2300, L500.4050 #### [facility] [address] [place], [address] WBC (Bld) [#/Vol] 8.4 10*3/uL Normal 4.4-11.0 [facility] Comment on above: Order Comment: Order Date: 03/18/24 Order Info: 0184- - CBCD Performed By: #### L 501.5200, L500.4100, L509.1000, L501.9985, L100.0100, L501.2300, L500.4050 #### [facility] [address] [place], [address] Comprehensive Metabolic Prof [facility] 01-12-2025 Albumin [Mass/Vol] 4.3 g/dL Normal 3.4-4.8 [facility] Comment on above: Order Comment: Order Date: 03/18/24 Order Info: 0184 - CBCD Performed By: #### L 501.5200, L500.4100, L509.1000, L501.9985, L100.0100, L501.2300, L500.4050 #### [facility] [address] [place], [address] Albumin/Globulin [Mass ratio] 1.4 {ratio} Normal 0.9-2.4 [facility] Comment on above: Order Comment: Order Date: 03/18/24 Order Info: 0184- - CBCD Performed By: #### L 501.5200, L500.4100, L509.1000, L501.9985, L100.0100, L501.2300, L500.4050 #### [facility] [address] [place], [address] ALK PHOS 83 U/L Normal 35-104 [facility] Comment on above: Order Comment: Order Date: 03/18/24 Order Info: 0184- - CBCD Performed By: #### L 501.5200, L500.4100, L509.1000, L501.9985, L100.0100, L501.2300, L500.4050 #### [facility] [address] [place], [address] ALT [Catalytic activity/Vol] 19 U/L Normal <=34 [facility] Comment on above: Order Comment: Order Date: 03/18/24 Order Info: 018- - CBCD Performed By: #### L 501.5200, L500.4100, L509.1000, L501.9985, L100.0100, L501.2300, L500.4050 #### [facility] [address] [place], [place], [phone] AST [Catalytic activity/Vol] 22 U/L Normal <=31 [facility] Comment on above: Order Comment: Order Date: 03/18/24 Order Info: 01806-28 - CBCD Performed By: #### L 501.5200, L500.4100, L509.1000, L501.9985, L100.0100, L501.2300, L500.4050 #### [facility] [address] [place], [place], [phone] Bilirubin [Mass/Vol] 0.31 mg/dL Normal 0.00-1.30 [facility] Comment on above: Order Comment: Order Date: 03/18/24 Order Info: 01806-28 - CBCD Performed By: #### L 501.5200, L500.4100, L509.1000, L501.9985, L100.0100, L501.2300, L500.4050 #### [facility] [address] [place], [place], [id number] BUN/CRE 23.4 RATIO High 10-20 [facility] Comment on above: Order Comment: Order Date: 03/18/24 Order Info: 018- - CBCD Performed By: #### L 501.5200, L500.4100, L509.1000, L501.9985, L100.0100, L501.2300, L500.4050 #### [facility] [address] [place], [address] Calcium [Mass/Vol] 9.6 mg/dL Normal 7.6-11.0 [facility] Comment on above: Order Comment: Order Date: 03/18/24 Order Info: 01806-28 - CBCD Performed By: #### L 501.5200, L500.4100, L509.1000, L501.9985, L100.0100, L501.2300, L500.4050 #### [facility] [address] [place], [address] Chloride [Moles/Vol] 102 mmol/L Normal 98-108 [facility] Comment on above: Order Comment: Order Date: 03/18/24 Order Info: 01806-28 - CBCD Performed By: #### L 501.5200, L500.4100, L509.1000, L501.9985, L100.0100, L501.2300, L500.4050 #### [facility] [address] [place], [address] CO2 [Moles/Vol] 24.5 mmol/L Normal 21.0-32.0 [facility] Comment on above: Order Comment: Order Date: 03/18/24 Order Info: 01806-28 - CBCD Performed By: #### L 501.5200, L500.4100, L509.1000, L501.9985, L100.0100, L501.2300, L500.4050 #### [facility] [address] [place], [address] Creatinine [Mass/Vol] 0.97 mg/dL Normal 0.70-1.20 [facility] Comment on above: Order Comment: Order Date: 03/18/24 Order Info: 01806-28 - CBCD Performed By: #### L 501.5200, L500.4100, L509.1000, L501.9985, L100.0100, L501.2300, L500.4050 #### [facility] [address] [place], [address] GAP 12 Normal 5-15 [facility] Comment on above: Order Comment: Order Date: 03/18/24 Order Info: 0184- - CBCD Performed By: #### L 501.5200, L500.4100, L509.1000, L501.9985, L100.0100, L501.2300, L500.4050 #### [facility] [address] [place], [address] GFR/1.73 sq M.predicted among non-blacks MDRD (S/P/Bld) [Vol rate/Area] 65 mL/min/{1.73_m2} Normal >60 [facility] Comment on above: Order Comment: Order Date: 03/18/24 Order Info: 0184 - CBCD Result Comment: mL/m in/1.73m2 CKD-EPI Creatinine Equation (2020) Performed By: #### L 501.5200, L500.4100, L509.1000, L501.9985, L100.0100, L501.2300, L500.4050 #### [facility] [address] [place], [address] Globulin (S) [Mass/Vol] 3.1 g/dL Normal 2.2-4.2 [facility] Comment on above: Order Comment: Order Date: 03/18/24 Order Info: 0184-1 - CBCD Performed By: #### L 501.5200, L500.4100, L509.1000, L501.9985, L100.0100, L501.2300, L500.4050 #### [facility] [address] [place], [address] Glucose [Mass/Vol] 104 mg/dL High 70-99 [facility] Comment on above: Order Comment: Order Date: 03/18/24 Order Info: 0184 - CBCD Performed By: #### L 501.5200, L500.4100, L509.1000, L501.9985, L100.0100, L501.2300, L500.4050 #### [facility] [address] [place], [address] Potassium [Moles/Vol] 4.2 mmol/L Normal 3.3-5.1 [facility] Comment on above: Order Comment: Order Date: 03/18/24 Order Info: 01806-28 - CBCD Performed By: #### L 501.5200, L500.4100, L509.1000, L501.9985, L100.0100, L501.2300, L500.4050 #### [facility] [address] [place], [address] Sodium [Moles/Vol] 139 mmol/L Normal 133-145 [facility] Comment on above: Order Comment: Order Date: 03/18/24 Order Info: 01806-28 - CBCD Performed By: #### L 501.5200, L500.4100, L509.1000, L501.9985, L100.0100, L501.2300, L500.4050 #### [facility] [address] [place], [address] T PROT 7.4 g/dL Normal 5.9-8.4 [facility] Comment on above: Order Comment: Order Date: 03/18/24 Order Info: 018- - CBCD Performed By: #### L 501.5200, L500.4100, L509.1000, L501.9985, L100.0100, L501.2300, L500.4050 #### [facility] [address] [place], [address] Urea nitrogen [Mass/Vol] 23 mg/dL High 4-19 [facility] Comment on above: Order Comment: Order Date: 03/18/24 Order Info: 0184- - CBCD Performed By: #### L 501.5200, L500.4100, L509.1000, L501.9985, L100.0100, L501.2300, L500.4050 #### [facility] [address] [place], [place], [address] Hemoglobin A1con 01-12-2025 HbA1c (Bld) [Mass fraction] 5.8 % High <=5.6 [facility] Comment on above: Order Comment: Order Date: 03/18/24 Order Info: 018- - CBCD Result Comment: Norm al < 5.7 % Prediabetic 5.7 - 6.4 % Diabetic >or= 6.5 % Please note range changes. Performed By: #### L 501.5200, L500.4100, L509.1000, L501.9985, L100.0100, L501.2300, L500.4050 #### [facility] [address] [place], [place], [phone] Lipid Profileon 01-12-2025 CHOL:HDL 2.47 Normal [facility] Comment on above: Order Comment: Order Date: 03/18/24 Order Info: 0184 - CBCD Performed By: #### L 501.5200, L500.4100, L509.1000, L501.9985, L100.0100, L501.2300, L500.4050 #### [facility] [address] [place], [address] Cholesterol [Mass/Vol] 161 mg/dL Normal <=200 [facility] Comment on above: Order Comment: Order Date: 03/18/24 Order Info: 0184- - CBCD Result Comment: Chol esterol level, Desirable <200 mg/dL Borderline high cholesterol 200-239 mg/dL High cholesterol >=240 mg/dL Recommendations of the NCEP Adult Treatment Panel for the following risk-cutoff thresholds for the [place] population. Performed By: #### L 501.5200, L500.4100, L509.1000, L501.9985, L100.0100, L501.2300, L500.4050 #### [facility] [address] [place], [address] Cholesterol in HDL [Mass/Vol] 65 mg/dL Normal [facility] Comment on above: Order Comment: Order Date: [...] L500.4100, L509.1000, L501.9985, L100.0100, L501.2300, L500.4050 #### [facility] [address] [place], [address] Cholesterol in LDL [Mass/Vol] 59 mg/dL Normal [facility] Comment on above: Order Comment: Order Date: 03/18/24 Order Info: 0184- - CBCD Result Comment: Bord dyzjdq=016-958 mg/dL Higher Hgbd=454 mg/dL or greater Friedwald Equation for LDL-C Performed By: #### L 501.5200, L500.4100, L509.1000, L501.9985, L100.0100, L501.2300, L500.4050 #### [facility] [address] [place], [address] Cholesterol in VLDL [Mass/Vol] 37 mg/dL Normal 5-40 [facility] Comment on above: Order Comment: Order Date: 03/18/24 Order Info: 0184-1 - CBCD Performed By: #### L 501.5200, L500.4100, L509.1000, L501.9985, L100.0100, L501.2300, L500.4050 #### [facility] [address] [place], [place], [address] Triglyceride [Mass/Vol] 184 mg/dL Normal [facility] Comment on above: Order Comment: Order Date: 03/18/24 Order Info: 0184-1 - CBCD Result Comment: The drugs N-Acetylcysteine and Metamizole may falsely depress this assay. Normal range: <150 mg/dL Borderline High: 150-199 mg/dL High: 200-499 mg/dL Very High: >500 mg/dL Performed By: #### L 501.5200, L500.4100, L509.1000, L501.9985, L100.0100, L501.2300, L500.4050 #### [facility] [address] [facility] [place], [place], [id number] Vitamin D,25 Hydroxyon 01-12 Vitamin D 25-OH 29.8 ng/mL Low 30-100 [facility] Comment on above: Order Comment: Order Date: 09/16/24 Order Info: 0786-1 - CMP Order Info: 50451-2 - LIPID Result Comment: Dimple min D Status Deficiency: <20 ng/mL (50nmol/L) Insufficiency: 20-30 ng/mL (50-75 nmol/L) Sufficiency: 30-100 ng/mL (75-250 nmol/L) Toxicity: >100 ng/mL (>250 nmol/L) Performed By: #### L 506.1001 #### [facility] [address] [place], [place], [id number] ENTERIC PATHOGEN PANEL STOOL on 11-17-2024 EP [...] VIBRIO Not Detected Yersinia Not Detected Normal [facility] Comment on above: Performed By: #### L 501.5200, L500.4100, L509.1000, L501.9985, L100.0100, L501.2300, L500.4050 #### [facility] [address] [place], [address] Absolute lymphocyte countOrd ered By: Deon Julien on 11-16-2024 Lymphocytes Auto (Unsp spec) [#/Vol] 1.92 10*3/uL 0.83-4.51 [facility] Absolute neutrophil countOrd ered By: Deon Le on 11-16-2024 Neutrophils (Bld) [#/Vol] 12.1 10*3/uL High 2.0-7.7 [facility] Anion gap in Serum or Plasma Ordered By: Deon Julien on 11-16-2024 Anion gap [Moles/Vol] 15 mmol/L 5-15 [facility] Automated lymphocyte count a s percentage of total leukocytesOrdered By: Deon Julien on 11-16-2024 Lymphocytes/100 WBC Auto (Unsp spec) 12.9 % Low 19-41 [facility] BUN/creatinine ratioOrdered By: Deon Julien on 11-16-2024 Urea nitrogen/Creatinine [Mass ratio] 25.8 mg/mg High 01-16 [facility] Basic Metabolic Profile (BMP )on 11-16-2024 BUN/CRE 25.8 RATIO High [facility] Comment on above: Performed By: #### L 506.1001 #### [facility] [address] [place], [address] Calcium [Mass/Vol] 9.5 mg/dL Normal 7.6-11.0 [facility] Comment on above: Performed By: #### L 506.1001 #### [facility] [address] [place], [address] Chloride [Moles/Vol] 104 mmol/L Normal 98-108 [facility] Comment on above: Performed By: #### L 506.1001 #### [facility] [address] [place], [address] CO2 [Moles/Vol] 22.6 mmol/L Normal 21.0-32.0 [facility] Comment on above: Performed By: #### L 506.1001 #### [facility] [address] [place], [address] Creatinine [Mass/Vol] 1.08 mg/dL Normal 0.70-1.20 [facility] Comment on above: Performed By: #### L 506.1001 #### [facility] [address] [place], [address] ECRCL 52.33 ml/min Normal 50-250 [facility] Comment on above: Performed By: #### L 506.1001 #### [facility] [address] [place], [address] GAP 15 Normal 5-15 [facility] Comment on above: Performed By: #### L 506.1001 #### [facility] [address] [place], [address] GFR/1.73 sq M.predicted among non-blacks MDRD (S/P/Bld) [Vol rate/Area] 57 mL/min/{1.73_m2} Low >60 [facility] Comment on above: Result Comment: mL/m in/1.73m2 CKD-EPI Creatinine Equation (2020) Performed By: #### L 506.1001 #### [facility] [address] [place], [address] Glucose [Mass/Vol] 110 mg/dL High 70-99 [facility] Comment on above: Performed By: #### L 506.1001 #### [facility] [address] [place], [address] Potassium [Moles/Vol] 3.9 mmol/L Normal 3.3-5.1 [facility] Comment on above: Performed By: #### L 506.1001 #### [facility] [address] [place], [address] Sodium [Moles/Vol] 141 mmol/L Normal 133-145 [facility] Comment on above: Performed By: #### L 506.1001 #### [facility] [address] [place], [address] Urea nitrogen [Mass/Vol] 28 mg/dL High 4-19 [facility] Comment on above: Performed By: #### L 506.1001 #### [facility] [address] [place], [address] Basophil percentageOrdered B y: Deon Oseguera 11-16-2024 Basophils/100 WBC (Bld) 0.2 % 0-1 [facility] CBC W/Diff, Automatedon - 0-2024 Absolute Lymph 1.92 X10 3/uL Normal 0.83-4.51 [facility] Comment on above: Performed By: #### L 506.1001 #### [facility] [address] [place], [address] Absolute Neut 12.1 X10 3/uL High 2.0-7.7 [facility] Comment on above: Performed By: #### L 506.1001 #### [facility] [address] [place], [address] Basophils/100 WBC (Bld) 0.2 % Normal 0-1 [facility] Comment on above: Performed By: #### L 506.1001 #### [facility] [address] [place], [address] Eosinophils/100 WBC (Bld) 0.4 % Normal 0-5 [facility] Comment on above: Performed By: #### L 506.1001 #### [facility] [address] [place], [address] Erythrocyte distribution width (RBC) [Ratio] 14.1 % Normal 11.6-14.6 [facility] Comment on above: Performed By: #### L 506.1001 #### [facility] [address] [place], [address] Hematocrit (Bld) [Volume fraction] 36.0 % Low 37-47 [facility] Comment on above: Performed By: #### L 506.1001 #### [facility] [address] [place], [address] Hemoglobin (Bld) [Mass/Vol] 11.6 g/dL Low 12.0-15.0 [facility] Comment on above: Performed By: #### L 506.1001 #### [facility] [address] [place], [address] IG% 0.400 Normal 0.0-0.9 [facility] Comment on above: Result Comment: IG% - Immature Granulocytes (promyelocytes, myelocytes and metamyelocytes) > 1% indicates that a LEFT SHIFT is Present. Performed By: #### L 506.1001 #### [facility] [address] [place], [address] Lymphocytes/100 WBC (Bld) 12.9 % Low 19-41 [facility] Comment on above: Performed By: #### L 506.1001 #### [facility] [address] [place], [address] MCH (RBC) [Entitic mass] 28.5 pg Normal 27.0-32.0 [facility] Comment on above: Performed By: #### L 506.1001 #### [facility] [address] [place], [address] MCHC (RBC) [Mass/Vol] 32.2 g/dL Normal 32-36 [facility] Comment on above: Performed By: #### L 506.1001 #### [facility] [address] [place], [address] MCV (RBC) [Entitic vol] 88.5 fL Normal 81-99 [facility] Comment on above: Performed By: #### L 506.1001 #### [facility] [address] [place], [address] Monocytes/100 WBC (Bld) 5.2 % Normal 0-10 [facility] Comment on above: Performed By: #### L 506.1001 #### [facility] [address] [place], [address] Neutrophils/100 WBC (Bld) 80.9 % High 47-70 [facility] Comment on above: Performed By: #### L 506.1001 #### [facility] [address] [place], [address] Nucleated RBC (Bld) [#/Vol] 0 10*3/uL Normal 0-5 [facility] Comment on above: Performed By: #### L 506.1001 #### [facility] [address] [place], [address] Platelet mean volume (Bld) [Entitic vol] 9.3 fL Normal 6.2-12.0 [facility] Comment on above: Performed By: #### L 506.1001 #### [facility] [address] [place], [address] Platelets (Bld) [#/Vol] 257 10*3/uL Normal 150-450 [facility] Comment on above: Performed By: #### L 506.1001 #### [facility] [address] [place], [address] RBC (Bld) [#/Vol] 4.07 10*6/uL Low 4.2-5.4 [facility] Comment on above: Performed By: #### L 506.1001 #### [facility] [address] [place], [address] RDW SD 45.0 fl High 35.1-43.9 [facility] Comment on above: Performed By: #### L [id number] #### [facility] Laboratory [address] [place], [address] WBC (Bld) [#/Vol] 14.9 10*3/uL High 4.4-11.0 [facility] Comment on above: Performed By: #### L 506.1001 #### [facility] [address] [place], [address] CDIFF (PCR)on 11-16-2024 CDIFF Is the patient recei ving laxatives? N Above criteria not met but test indicated Y New/unexplained onset of 3 or more stools in past 24 hrs? Y Pending [phone] NAP1-B1 Presumptive Negative *for epidemiolologic???use C. Diff PCR Negative- No toxigenic C. Diff Detected Normal [facility] Comment on above: Performed By: #### L 501.5200, L500.4100, L509.1000, L501.9985, L100.0100, L501.2300, L500.4050 #### [facility] [address] [place], [address] Carbon dioxide, total [Moles /volume] in Central venous bloodOrdered By: Deon Julien on 11-16-2024 CO2 [Moles/Vol] 22.6 mmol/L 21.0-32.0 [facility] Chloride assayOrdered By: Sanjay Julien on 11-16-2024 Chloride [Moles/Vol] 104 mmol/L 98-108 [facility] Clostridium difficile detect ion by polymerase chain reactionOrdered By: Deon Julien on 11-16-2024 C. difficile DNA BENITO+probe Ql (Unsp spec) [facility] Emergency Department Summary on 11-16-2024 Emergency Department Summary [facility] Medical Records Department [address] [place] [address] Emergency Department Summary 11/16/24 MR#: [id number] Acct: [id number] Name: ЕКАТЕРИНА BA Rep #: [id number] : 1960 64 From: Deon Mello PCP: [...] States just feels queasy. No urinary symptoms. [facility] Medical History Hiatal hernia Chronic gastritis [...] Casting Sh (more content not included)... Normal [facility] Eosinophil percentageOrdered By: Deon Julien on 11-16-2024 Eosinophils/100 WBC (Bld) 0.4 % 0-5 [facility] Erythrocyte distribution wid th ratioOrdered By: Deon Julien on 11-16-2024 Erythrocyte distribution width (RBC) [Ratio] 14.1 % 11.6-14.6 [facility] Erythrocyte distribution wid th standard deviationOrdered By: Deon Julien on 11-16-2024 Erythrocyte distribution width (RBC) [Ratio] 45.0 fl High 35.1-43.9 [facility] Glomerular filtration rate ( GFR) estimation/1.73 sq m using serum, plasma, or whole bOrdered By: Deon Julien on 11-16-2024 GFR/1.73 sq M.predicted among non-blacks MDRD (S/P/Bld) [Vol rate/Area] 57 mL/min/{1.73_m2} Low >60 [facility] Comment on above: mL/min/1.73m2 CKD-EP I Creatinine Equation (2020) Hematocrit Auto (Bld) [Volum e fraction]Ordered By: Deon Julien on 11-16-2024 Hematocrit (Bld) [Volume fraction] 36.0 % Low 37-47 [facility] Hemoglobin measurementOrdere d By: Deon Julien on 11-16-2024 Hemoglobin (Bld) [Mass/Vol] 11.6 g/dL Low 12.0-15.0 [facility] Immature granulocytes/100 WB C Auto (Bld)Ordered By: Deon Julien on 11-16-2024 Immature granulocytes/100 WBC (Bld) 0.400 % 0.0-0.9 [facility] Comment on above: IG% - Immature Granu locytes (promyelocytes, myelocytes and metamyelocytes) > 1% indicates that a LEFT SHIFT is Present. MCV (mean corpuscular volume ) determinationOrdered By: Deon Julien on 11-16-2024 MCV (RBC) [Entitic vol] 88.5 fL 81-99 [facility] Mean corpuscular hemoglobin (MCH) determinationOrdered By: Deon Julien on 11-16-2024 MCH (RBC) [Entitic mass] 28.5 pg 27.0-32.0 [facility] Mean corpuscular hemoglobin concentration (MCHC) determinationOrdered By: Deon Julien on 11-16-2024 MCHC (RBC) [Mass/Vol] 32.2 g/dL 32-36 [facility] Mean platelet volume determi nationOrdered By: Deon Julien on 11-16-2024 Platelet mean volume (Bld) [Entitic vol] 9.3 fL 6.2-12.0 [facility] Monocyte percentageOrdered B y: Deon Julien on 11-16-2024 Monocytes/100 WBC (Bld) 5.2 % 0-10 [facility] Neutrophil percentageOrdered By: Deon Le on 11-16-2024 Neutrophils/100 WBC (Bld) 80.9 % High 47-70 [facility] Nucleated red blood cell per centageOrdered By: Deno Julien on 11-16-2024 Nucleated RBC/100 WBC (Bld) [Ratio] 0 % 0-5 [facility] OPERATIVE PROCEDURESon 11-16 OPERATIVE PROCEDURES [facility] OPERATIVE REPORT NAME ACCOUNT SEX AGE ADMIT DISCHARGE PT MED. RECORD# NUMBER DATE DATE TYPE ЕКАТЕРИНА BA [id number] F 64 11/15/24 11/15/24 2 E [id number] ROOM: [facility] SAULT DATE OF : 1960 DICTATING PHYSICIAN: Fletcher Awan DATE OF SURGERY: November 15, 2024 SURGEON: Fletcher Awan MD SIX PACK LOADER OPERATOR: Miriam Washington PA-C ANESTHESIOLOGIST: Carlos Eduardo Noel [...] She underwent Page 1 of 3 ЕКАТЕРИНА AB Operative Report ЕКАТЕРИНА BA : 1960 standard wound closure followed by a short-leg cast. assistant bookkeeper/physician volleyball assistant coach helped throughout the entire procedure. She helped with patient positioning, holding of limbs, and holding of retractors. She helped with open reduction of the fracture with internal fixation with the Arthrex nail, screw placement, TightRope placement, and maintenance of reduction during TightRope fixation. She helped with wound closure, cast application, and patient transfer. Without the events and promotions assistant and her expertise, the surgical outcome could [...] to bone. With the help of the volleyball assistant coach holding the retractors, a reduction clamp was [...] ankle reduced with the help of the volleyball assistant coach and the scrub and then drilled for the TightRope device with the outrigger device. Once this was drilled, the outrigger device was then removed. The TightRope devices were placed under standard technique while the volleyball assistant coach and the scrub helped hold the mortise well positioned with the ankle dorsiflexed, inverted, and with appropriate med (more content not included)... Normal [facility] Platelet countOrdered By: Sanjay Julien on 11-16-2024 Platelets (Bld) [#/Vol] 257 10*3/uL 150-450 [facility] Potassium measurement (mass/ volume)Ordered By: Deon Julien on 11-16-2024 Potassium (Unsp spec) [Mass/Vol] 3.9 mmol/L 3.3-5.1 [facility] RBC Auto (Bld) [#/Vol]Ordere d By: Deon Julien on 11-16-2024 RBC (Bld) [#/Vol] 4.07 10*6/uL Low 4.2-5.4 [facility] Serum creatinine measurement (mass/volume)Ordered By: Deon Julien on 11-16-2024 Creatinine [Mass/Vol] 1.08 mg/dL 0.70-1.20 [facility] Serum glucose measurement (m ass/volume)Ordered By: Deon Julien on 11-16-2024 Glucose [Mass/Vol] 110 mg/dL High 70-99 [facility] Serum or plasma calcium julee urement (mass/volume)Ordered By: Deon Julien on 11-16-2024 Calcium [Mass/Vol] 9.5 mg/dL 7.6-11.0 [facility] Serum or plasma urea nitroge n measurement (mass/volume)Ordered By: Deon Julien on 11-16-2024 Urea nitrogen [Mass/Vol] 28 mg/dL High 4-19 [facility] Sodium levelOrdered By: Deon Julien on 11-16-2024 Sodium [Moles/Vol] 141 mmol/L 133-145 [facility] White blood cell (WBC) count Ordered By: Deon Julien on 11-16-2024 WBC (Bld) [#/Vol] 14.9 10*3/uL High 4.4-11.0 [facility] C-ARM USAGE 1 HOURon C-ARM USAGE 1 HOUR [place] [address] Patient: ЕКАТЕРИНА BA Phone#: : 1960 Age: 64 Gender: F Pt. Type: Out Account: [id number] Location: 062 Ordering: FLETCHER AWAN Exam Date: 11/15/2024/8:09 Family Phys: Charge Code: 413852 Physician: Colbert Order #: [id number] Dose#: 5.77 mGy PROCEDURE: C-ARM USEAGE 1 HR COMPARISON: [facility], XR, CHEST 2 VIEWS, 11/14/2024, 15:08. INDICATIONS: [...] Douglas MD on 11/15/2024 at 10:43 Normal [facility] BMP with eGFRon 11-14-2024 AGE 64 years Normal [facility] Comment on above: Performed By: #### 2 62854 #### [facility],[address] [place], [place] [id number] Anion gap [Moles/Vol] 15 mmol/L Normal 10 - 20 [facility] Comment on above: Performed By: #### 2 76956 #### [facility],[address] [place], [place] [id number] BMP with eGFR Normal [facility] Comment on above: Result Comment: BASI C METABOLIC PANEL Performed By: #### 2 39455 #### [facility],[address] [place] [address] Calcium [Mass/Vol] 9.9 mg/dL Normal 8.5 - 10.1 [facility] Comment on above: Performed By: #### 2 62018 #### [facility],[address] [place] [address] Chloride [Moles/Vol] 103 mmol/L Normal 98 - 107 [facility] Comment on above: Performed By: #### 2 20850 #### [facility],[address] [place] [address] CO2 [Moles/Vol] 23.3 mmol/L Normal 21.0 - 32.0 [facility] Comment on above: Performed By: #### 2 81510 #### [facility],[address] [place] [address] Creatinine [Mass/Vol] 0.82 mg/dL Normal 0.55 - 1.02 [facility] Comment on above: Performed By: #### 2 15027 #### [facility],[address] [place] [address] GFR/1.73 sq M.predicted among non-blacks MDRD (S/P/Bld) [Vol rate/Area] mL/min/{1.73_m2} Normal 60 - 999 [facility] Comment on above: Performed By: #### 2 55553 #### [facility],[address] [place], [place] [id number] Result Comment: ACCO RDING TO THE NATIONAL KIDNEY DISEASE EDUCATION PROGRAM(NKDE), A NORMAL eGFR IS A VALUE GREATER THAN OR EQUAL TO 60 ML/MIN/1.73 SQ METERS. CHRONIC KIDNEY DISEASE: <60mL/MIN/1.73 SQ METERS KIDNEY FAILURE: <15mL/MIN/1.73 SQ METERS THIS TEST SHOULD ONLY BE USED FOR PATIENTS 18 YEARS OF AGE AND OLDER. Glucose [Mass/Vol] 96 mg/dL Normal 74 - 106 [facility] Comment on above: Performed By: #### 2 94189 #### [facility],[address] [place] [address] Potassium [Moles/Vol] 3.7 mmol/L Normal 3.5 - 5.1 [facility] Comment on above: Performed By: #### 2 90111 #### [facility],[address] [place] [address] Sodium [Moles/Vol] 138 mmol/L Normal 136 - 145 [facility] Comment on above: Performed By: #### 2 90756 #### [facility],[address] [place] [address] Urea nitrogen [Mass/Vol] 13 mg/dL Normal 7 - 18 [facility] Comment on above: Performed By: #### 2 34316 #### [facility],[address] [place] [address] CBC + DIFFon 11-14-2024 Baso # 0.04 x10EE3/UL Normal 0.00 - 0.10 [facility] Comment on above: Performed By: #### 2 79522 #### [facility],[address] [place] [address] Basophils/100 WBC (Bld) 0.4 % Normal 0.0 - 2.0 [facility] Comment on above: Performed By: #### 2 58409 #### [facility],[address] [place] [address] CBC + DIFF Normal [facility] Comment on above: Result Comment: CBC- COMPLETE BLOOD COUNT Performed By: #### 2 12986 #### [facility],[address] [place] [address] EO # 0.31 x10EE3/UL Normal 0.00 - 0.50 [facility] Comment on above: Performed By: #### 2 55172 #### [facility],[address] [place] [address] Eosinophils/100 WBC (Bld) 3.5 % Normal 0.0 - 7.0 [facility] Comment on above: Performed By: #### 2 02527 #### [facility],[address] [place], [place] [phone] Erythrocyte distribution width (RBC) [Ratio] 13.7 % Normal 12.0 - 15.6 [facility] Comment on above: Performed By: #### 2 14129 #### [facility],[address] [place] [address] Hematocrit (Bld) [Volume fraction] 40.4 % Normal 34.0 - 46.0 [facility] Comment on above: Performed By: #### 2 61667 #### [facility],[address] [place] [address] Hemoglobin (Bld) [Mass/Vol] 13.7 g/dL Normal 12.0 - 16.0 [facility] Comment on above: Performed By: #### 2 84853 #### [facility],[address] [place] [address] Lymph # 1.86 x10EE3/UL Normal 0.80 - 2.80 [facility] Comment on above: Performed By: #### 2 77049 #### [place] [address] Lymphocytes/100 WBC (Bld) 21.1 % Normal 20.0 - 45.0 [facility] Comment on above: Performed By: #### 2 96823 #### [facility],[address] [place] [address] MANUAL DIFF N/A Normal [facility] Comment on above: Performed By: #### 2 43105 #### [place] [address] MCH (RBC) [Entitic mass] 29 pg Normal 27 - 33 [facility] Comment on above: Performed By: #### 2 47533 #### [place] [address] MCHC 34 X10 3 Normal 32 - 36 [facility] Comment on above: Performed By: #### 2 54039 #### [place] [address] MCV (RBC) [Entitic vol] 87 fL Normal 80 - 99 [facility] Comment on above: Performed By: #### 2 18676 #### [place] [address] [place] # 0.52 x10EE3/UL Normal 0.20 - 1.00 [facility] Comment on above: Performed By: #### 2 53842 #### [place] [address] MONOS % 5.9 % Normal 0.0 - 10.0 [facility] Comment on above: Performed By: #### 2 84566 #### [facility],[address] [place] [address] Morphology Steven (Bld) [Interp] N/A Normal [facility] Comment on above: Performed By: #### 2 98783 #### [facility],[address] [place] [address] Neut # 6.11 x10EE3/UL Normal 1.50 - 7.10 [facility] Comment on above: Performed By: #### 2 84387 #### [place] [address] Neutrophils/100 WBC (Bld) 69.1 % Normal 46.0 - 76.0 [facility] Comment on above: Performed By: #### 2 41824 #### [place] [address] PLATELET 340 x10EE3/UL Normal 150 - 450 [facility] Comment on above: Performed By: #### 2 05212 #### [place] [address] Platelet mean volume (Bld) [Entitic vol] 8.0 fL Normal 6.6 - 10.5 [facility] Comment on above: Result Comment: AUTO MATED DIFFERENTIAL Performed By: #### 2 99024 #### [place] [id number] RBC 4.67 x 10EE6/UL Normal 4.10 - 5.30 [facility] Comment on above: Performed By: #### 2 49876 #### [place] [id number] WBC 8.8 x 10EE3/UL Normal 4.5 - 10.8 [facility] Comment on above: Performed By: #### 2 83907 #### [facility],[address] [place] [address] CHEST 2 VIEWSon 11-14-2024 CHEST 2 VIEWS [facility] [address] [place], [place] [address] Patient: ЕКАТЕРИНА BA Phone#: : 1960 Age: 64 Gender: F Pt. Type: Out Account: [id number] Location: Ordering: HORACIO ARMIJO Exam Date: 11/14/2024/15:08 Family Phys: Charge Code: 184751 Physician: Colbert Order #: [id number] Dose#: PROCEDURE: X-RAY CHEST 2 VIEWS COMPARISON: [...] Aguiar MD on 11/14/2024 at 15:32 Normal [facility] Ankle min 3 Viewson 11-05-19 Ankle min 3 Views [facility] Imaging Services [address] [place] [address] Ankle min 3 Views MR#: [id number] Acct: [id number] Name: ЕКАТЕРИНА BA Rep #: [id number] : 1960 F 64 From: Fabiana de MD PCP: Dr. Dwayne Gibson MD Status: PRE ER Study: Ankle min 3 Views Date of Exam: 11/04/24 Exam# [id number] Ordering Dr: Alonso Zaldivar DO PROCEDURE: ANKLE [...] soft tissue edema and swelling. Reading Location: [place] [address] CC: Dr. Dwayne Gibson MD; Dr. Alonso Zaldivar DO Shoe Sprayer: Signed Normal [facility] Emergency Department Summary on 11-04-2024 Emergency Department Summary [facility] Medical Records Department [address] [place] [address] Emergency Department Summary 11/04/24 MR#: [id number] Acct: [id number] Name: ЕКАТЕРИНА BA Rep #: [id number] : 1960 64 From: Alonso Zaldivar DO [...] out she denies any blood thinner medications [facility] Medical History Hiatal hernia Chronic gastritis [...] following commands knew that she was at [facility] the year is 2024 Skin: Warm, [...] acute spiral (more content not included)... Normal [facility] Foot min 3 Viewson 5 Foot min 3 Views [facility] Imaging Services [address] [place], [place] [address] Foot min 3 Views MR#: [id number] Acct: [id number] Name: ЕКАТЕРИНА BA Rep #: [id number] : 1960 F 64 From: Fabiana de MD PCP: Dr. Dwayne Gibson MD Status: PRE ER Study: Foot min 3 Views Date of Exam: 11/04/24 Exam# [id number] Ordering Dr: Alonso Zaldivar DO PROCEDURE: FOOT [...] OF THE DISTAL FIBULAR DIAPHYSIS. Reading Location: [place] [address] CC: Dr. Dwayne Gibson MD; Dr. Alonso Zaldivar DO Shoe Sprayer: Signed Normal [facility] Anion gap in Serum or Plasma Ordered By: Dwayne Gibson on 09-16-2024 Anion gap [Moles/Vol] 13 mmol/L - [facility] BUN/creatinine ratioOrdered By: Dwayne Gibson on 09-16-2024 Urea nitrogen/Creatinine [Mass ratio] 18.7 mg/mg 01-16 [facility] Bilirubin, totalOrdered By: Dwayne Gibson on 09-16-2024 Bilirubin [Mass/Vol] 0.34 mg/dL 0.00-1.30 [facility] Carbon dioxide, total [Moles /volume] in Central venous bloodOrdered By: Dwayne Gibson on 09-16-2024 CO2 [Moles/Vol] 22.6 mmol/L 21.0-32.0 [facility] Chloride assayOrdered By: Sadie Gibson on 09-16-2024 Chloride [Moles/Vol] 103 mmol/L 98-108 [facility] Comprehensive Metabolic Prof ilon 09-16-2024 Albumin [Mass/Vol] 4.2 g/dL Normal 3.4-4.8 [facility] Comment on above: Order Comment: Order Date: 09/16/24 Order Info: 0786-1 - CMP Order Info: [id number] - LIPID Performed By: #### L 506.1001 #### [facility] [address] [place], [place], [id number] Albumin/Globulin [Mass ratio] 1.3 {ratio} Normal 0.9-2.4 [facility] Comment on above: Order Comment: Order Date: 09/16/24 Order Info: 0786-1 - CMP Order Info: [id number] - LIPID Performed By: #### L 506.1001 #### [facility] [address] [place], [address] ALK PHOS 86 U/L Normal 35-104 [facility] Comment on above: Order Comment: Order Date: 09/16/24 Order Info: 0786-1 - CMP Order Info: [id number] - LIPID Performed By: #### L 506.1001 #### [facility] [address] [place], [address] ALT [Catalytic activity/Vol] 24 U/L Normal <=34 [facility] Comment on above: Order Comment: Order Date: 09/16/24 Order Info: 0786-1 - CMP Order Info: [id number] - LIPID Performed By: #### L 506.1001 #### [facility] [address] [place], [address] AST [Catalytic activity/Vol] 27 U/L Normal <=31 [facility] Comment on above: Order Comment: Order Date: 09/16/24 Order Info: 0786-1 - CMP Order Info: [id number] - LIPID Performed By: #### L 506.1001 #### [facility] [address] [place], [address] Bilirubin [Mass/Vol] 0.34 mg/dL Normal 0.00-1.30 [facility] Comment on above: Order Comment: Order Date: 09/16/24 Order Info: 0786-1 - CMP Order Info: [id number] - LIPID Performed By: #### L 506.1001 #### [facility] [address] [place], [address] BUN/CRE 18.7 RATIO Normal 10-20 [facility] Comment on above: Order Comment: Order Date: 09/16/24 Order Info: 0786-1 - CMP Order Info: [id number] - LIPID Performed By: #### L 506.1001 #### [facility] [address] [place], [address] Calcium [Mass/Vol] 9.1 mg/dL Normal 7.6-11.0 [facility] Comment on above: Order Comment: Order Date: 09/16/24 Order Info: 0786-1 - CMP Order Info: [id number] - LIPID Performed By: #### L 506.1001 #### [facility] [address] [place], [address] Chloride [Moles/Vol] 103 mmol/L Normal 98-108 [facility] Comment on above: Order Comment: Order Date: 09/16/24 Order Info: 0786-1 - CMP Order Info: [id number] - LIPID Performed By: #### L 506.1001 #### [facility] [address] [place], [address] CO2 [Moles/Vol] 22.6 mmol/L Normal 21.0-32.0 [facility] Comment on above: Order Comment: Order Date: 09/16/24 Order Info: 0786-1 - CMP Order Info: [id number] - LIPID Performed By: #### L 506.1001 #### [facility] [address] [place], [address] Creatinine [Mass/Vol] 0.97 mg/dL Normal 0.70-1.20 [facility] Comment on above: Order Comment: Order Date: 09/16/24 Order Info: 0786-1 - CMP Order Info: [id number] - LIPID Performed By: #### L 506.1001 #### [facility] [address] [place], [address] GAP 13 Normal 5-15 [facility] Comment on above: Order Comment: Order Date: 09/16/24 Order Info: 0786-1 - CMP Order Info: [id number] - LIPID Performed By: #### L 506.1001 #### [facility] [address] [place], [address] GFR/1.73 sq M.predicted among non-blacks MDRD (S/P/Bld) [Vol rate/Area] 65 mL/min/{1.73_m2} Normal >60 [facility] Comment on above: Order Comment: Order Date: 09/16/24 Order Info: 0786-1 - CMP Order Info: [id number] - LIPID Result Comment: mL/m in/1.73m2 CKD-EPI Creatinine Equation (2020) Performed By: #### L 506.1001 #### [facility] [address] [place], [address] Globulin (S) [Mass/Vol] 3.3 g/dL Normal 2.2-4.2 [facility] Comment on above: Order Comment: Order Date: 09/16/24 Order Info: 0786-1 - CMP Order Info: [id number] - LIPID Performed By: #### L 506.1001 #### [facility] [address] [place], [address] Glucose [Mass/Vol] 127 mg/dL High 70-99 [facility] Comment on above: Order Comment: Order Date: 09/16/24 Order Info: 0786-1 - CMP Order Info: [id number] - LIPID Performed By: #### L 506.1001 #### [facility] [address] [place], [address] Potassium [Moles/Vol] 4.1 mmol/L Normal 3.3-5.1 [facility] Comment on above: Order Comment: Order Date: 09/16/24 Order Info: 0786-1 - CMP Order Info: [id number] - LIPID Performed By: #### L 506.1001 #### [facility] [address] [place], [address] Sodium [Moles/Vol] 138 mmol/L Normal 133-145 [facility] Comment on above: Order Comment: Order Date: 09/16/24 Order Info: 0786-1 - CMP Order Info: [id number] - LIPID Performed By: #### L 506.1001 #### [facility] [address] [place], [place], [address] T PROT 7.5 g/dL Normal 5.9-8.4 [facility] Comment on above: Order Comment: Order Date: 09/16/24 Order Info: 0786-1 - CMP Order Info: [id number] - LIPID Performed By: #### L 506.1001 #### [facility] [address] [place], [address] Urea nitrogen [Mass/Vol] 18 mg/dL Normal 4-19 [facility] Comment on above: Order Comment: Order Date: 09/16/24 Order Info: 0786-1 - CMP Order Info: [id number] - LIPID Performed By: #### L 506.1001 #### [facility] [address] [place], [address] Glomerular filtration rate ( GFR) estimation/1.73 sq m using serum, plasma, or whole bOrdered By: Dwayne Gibson on 09-16-2024 GFR/1.73 sq M.predicted among non-blacks MDRD (S/P/Bld) [Vol rate/Area] 65 mL/min/{1.73_m2} >60 [facility] Comment on above: mL/min/1.73m2 CKD-EP I Creatinine Equation (2020) Laboratory - Chemistry and C hemistry - challengeOrdered By: Dwayne Gibson on 09-16-2024 AST [Catalytic activity/Vol] 27 U/L <32 [facility] Potassium measurement (mass/ volume)Ordered By: Dwayne Gibson on 09-16-2024 Potassium (Unsp spec) [Mass/Vol] 4.1 mmol/L 3.3-5.1 [facility] Serum creatinine measurement (mass/volume)Ordered By: Dwayne Gibson on 09-16-2024 Creatinine [Mass/Vol] 0.97 mg/dL 0.70-1.20 [facility] Serum globulin measurementOr dered By: Dwayne Gibson on 09-16-2024 Globulin (S) [Mass/Vol] 3.3 g/dL 2.2-4.2 [facility] Serum glucose measurement (m ass/volume)Ordered By: Dwayne Gibson on 09-16-2024 Glucose [Mass/Vol] 127 mg/dL High 70-99 [facility] Serum or plasma alanine salmon otransferase (ALT) measurementOrdered By: Dwayne Gibson on 09-16-2024 ALT [Catalytic activity/Vol] 24 U/L <35 [facility] Serum or plasma albumin julee urement (mass/volume)Ordered By: Dwayne Gibson on 09-16-2024 Albumin [Mass/Vol] 4.2 g/dL 3.4-4.8 [facility] Serum or plasma albumin/glob ulin mass ratioOrdered By: Dwayne Gibson on 09-16-2024 Albumin/Globulin [Mass ratio] 1.3 {ratio} 0.9-2.4 [facility] Serum or plasma alkaline wagner sphatase measurementOrdered By: Dwayne Gibson on 09-16-2024 ALP [Catalytic activity/Vol] 86 U/L 35-104 [facility] Serum or plasma calcium julee urement (mass/volume)Ordered By: Dwayne Gibson on 09-16-2024 Calcium [Mass/Vol] 9.1 mg/dL 7.6-11.0 [facility] Serum or plasma urea nitroge n measurement (mass/volume)Ordered By: Dwayne Gibson on 09-16-2024 Urea nitrogen [Mass/Vol] 18 mg/dL 4-19 [facility] Sodium levelOrdered By: Dwayne Gibson on 09-16-2024 Sodium [Moles/Vol] 138 mmol/L 133-145 [facility] Total proteinOrdered By: Efrain Gibson on 09-16-2024 Protein [Mass/Vol] 7.5 g/dL 5.9-8.4 [facility] Absolute lymphocyte countOrd ered By: Dwayne Gibson on 09-13-2024 Lymphocytes Auto (Unsp spec) [#/Vol] 2.49 10*3/uL 0.83-4.51 [facility] Absolute neutrophil countOrd ered By: Dwayne Gibson on 09-13-2024 Neutrophils (Bld) [#/Vol] 5.2 10*3/uL 2.0-7.7 [facility] Automated lymphocyte count a s percentage of total leukocytesOrdered By: Dwayne Gibson on 09-13-2024 Lymphocytes/100 WBC Auto (Unsp spec) 29.2 % 19-41 [facility] Basophil percentageOrdered B y: Dwayne Gibson on 09-13-2024 Basophils/100 WBC (Bld) 0.8 % 0-1 [facility] CBC W/Diff, Automatedon 08-28 Absolute Lymph 2.49 X10 3/uL Normal 0.83-4.51 [facility] Comment on above: Order Comment: Order Date: 09/16/24 Order Info: 0786-1 - CMP Order Info: [id number] - LIPID Performed By: #### L 506.1001 #### [facility] [address] [place], [address] Absolute Neut 5.2 X10 3/uL Normal 2.0-7.7 [facility] Comment on above: Order Comment: Order Date: 09/16/24 Order Info: 0786-1 - CMP Order Info: [id number] - LIPID Performed By: #### L 506.1001 #### [facility] [address] [place], [address] Basophils/100 WBC (Bld) 0.8 % Normal 0-1 [facility] Comment on above: Order Comment: Order Date: 09/16/24 Order Info: 0786-1 - CMP Order Info: [id number] - LIPID Performed By: #### L 506.1001 #### [facility] [address] [place], [address] Eosinophils/100 WBC (Bld) 3.0 % Normal 0-5 [facility] Comment on above: Order Comment: Order Date: 09/16/24 Order Info: 0786- - CMP Order Info: [id number] - LIPID Performed By: #### L 506.1001 #### [facility] [address] [place], [address] Erythrocyte distribution width (RBC) [Ratio] 13.1 % Normal 11.6-14.6 [facility] Comment on above: Order Comment: Order Date: 09/16/24 Order Info: 07- - CMP Order Info: [id number] - LIPID Performed By: #### L 506.1001 #### [facility] [address] [place], [place], [id number] Hematocrit (Bld) [Volume fraction] 42.6 % Normal 37-47 [facility] Comment on above: Order Comment: Order Date: 09/16/24 Order Info: 07- - CMP Order Info: [id number] - LIPID Performed By: #### L 506.1001 #### [facility] [address] [place], [address] Hemoglobin (Bld) [Mass/Vol] 14.3 g/dL Normal 12.0-15.0 [facility] Comment on above: Order Comment: Order Date: 09/16/24 Order Info: 0786- - CMP Order Info: [id number] - LIPID Performed By: #### L 506.1001 #### [facility] [address] [place], [address] IG% 0.200 Normal 0.0-0.9 [facility] Comment on above: Order Comment: Order Date: 09/16/24 Order Info: 0786- - CMP Order Info: [id number] - LIPID Result Comment: IG% - Immature Granulocytes (promyelocytes, myelocytes and metamyelocytes) > 1% indicates that a LEFT SHIFT is Present. Performed By: #### L 506.1001 #### [facility] [address] [place], [address] Lymphocytes/100 WBC (Bld) 29.2 % Normal 19-41 [facility] Comment on above: Order Comment: Order Date: 09/16/24 Order Info: 0786-1 - CMP Order Info: [id number] - LIPID Performed By: #### L 506.1001 #### [facility] [address] [place], [address] MCH (RBC) [Entitic mass] 28.8 pg Normal 27.0-32.0 [facility] Comment on above: Order Comment: Order Date: 09/16/24 Order Info: 0786-1 - CMP Order Info: [id number] - LIPID Performed By: #### L 506.1001 #### [facility] [address] [place], [address] MCHC (RBC) [Mass/Vol] 33.6 g/dL Normal 32-36 [facility] Comment on above: Order Comment: Order Date: 09/16/24 Order Info: 0786-1 - CMP Order Info: [id number] - LIPID Performed By: #### L 506.1001 #### [facility] [address] [place], [address] MCV (RBC) [Entitic vol] 85.9 fL Normal 81-99 [facility] Comment on above: Order Comment: Order Date: 09/16/24 Order Info: 0786-1 - CMP Order Info: [id number] - LIPID Performed By: #### L 506.1001 #### [facility] [address] [place], [address] Monocytes/100 WBC (Bld) 5.5 % Normal 0-10 [facility] Comment on above: Order Comment: Order Date: 09/16/24 Order Info: 0786-1 - CMP Order Info: [id number] - LIPID Performed By: #### L 506.1001 #### [facility] [address] [place], [address] Neutrophils/100 WBC (Bld) 61.3 % Normal 47-70 [facility] Comment on above: Order Comment: Order Date: 09/16/24 Order Info: 0786-1 - CMP Order Info: [id number] - LIPID Performed By: #### L 506.1001 #### [facility] [address] [place], [address] Nucleated RBC (Bld) [#/Vol] 0 10*3/uL Normal 0-5 [facility] Comment on above: Order Comment: Order Date: 09/16/24 Order Info: 0786-1 - CMP Order Info: [id number] - LIPID Performed By: #### L 506.1001 #### [facility] [address] [place], [address] Platelet mean volume (Bld) [Entitic vol] 10.4 fL Normal 6.2-12.0 [facility] Comment on above: Order Comment: Order Date: 09/16/24 Order Info: 0786-1 - CMP Order Info: [id number] - LIPID Performed By: #### L 506.1001 #### [facility] [address] [place], [address] Platelets (Bld) [#/Vol] 293 10*3/uL Normal 150-450 [facility] Comment on above: Order Comment: Order Date: 09/16/24 Order Info: 0786-1 - CMP Order Info: [id number] - LIPID Performed By: #### L 506.1001 #### [facility] [address] [place], [address] RBC (Bld) [#/Vol] 4.96 10*6/uL Normal 4.2-5.4 [facility] Comment on above: Order Comment: Order Date: 09/16/24 Order Info: 0786-1 - CMP Order Info: [id number] - LIPID Performed By: #### L 506.1001 #### [facility] [address] [place], [address] RDW SD 40.0 fl Normal 35.1-43.9 [facility] Comment on above: Order Comment: Order Date: 09/16/24 Order Info: 0786-1 - CMP Order Info: [id number] - LIPID Performed By: #### L 506.1001 #### [facility] [address] [place], [place], [id number] WBC (Bld) [#/Vol] 8.5 10*3/uL Normal 4.4-11.0 [facility] Comment on above: Order Comment: Order Date: 09/16/24 Order Info: 0786-1 - CMP Order Info: [id number] - LIPID Performed By: #### L 506.1001 #### [facility] [address] [facility] [place], [place], [id number] Calculated very low density lipoprotein (VLDL) cholesterol measurementOrdered By: Dwayne Gibson on 09-13-2024 Calculated very low density lipoprotein (VLDL) cholesterol measurement 28 mg/dL 5-40 [facility] Eosinophil percentageOrdered By: Dwayne Gibson on 09-13-2024 Eosinophils/100 WBC (Bld) 3.0 % 0-5 [facility] Erythrocyte distribution wid th ratioOrdered By: Dwayne Gibson on 09-13-2024 Erythrocyte distribution width (RBC) [Ratio] 13.1 % 11.6-14.6 [facility] Erythrocyte distribution wid th standard deviationOrdered By: Dwayne Gibson on 09-13-2024 Erythrocyte distribution width (RBC) [Ratio] 40.0 fl 35.1-43.9 [facility] Hematocrit Auto (Bld) [Volum e fraction]Ordered By: Dwayne Gibson on 09-13-2024 Hematocrit (Bld) [Volume fraction] 42.6 % 37-47 [facility] Hemoglobin A1con 09-13-2024 HbA1c (Bld) [Mass fraction] 6.1 % High <=5.6 [facility] Comment on above: Order Comment: Order Date: 09/16/24 Order Info: 0786-1 - CMP Order Info: [id number] - LIPID Result Comment: Norm al < 5.7 % Prediabetic 5.7 - 6.4 % Diabetic >or= 6.5 % Please note range changes. Performed By: #### L 506.1001 #### [facility] [address] [place], [address] Hemoglobin A1c percentageOrd ered By: Dwayne Gibson on 09-13-2024 HbA1c (Bld) [Mass fraction] 6.1 % High <5.7 [facility] Comment on above: Normal < 5.7 % Predi abetic 5.7 - 6.4 % Diabetic >or= 6.5 % Please note range changes. Hemoglobin measurementOrdere d By: Dwayne Gibson on 09-13-2024 Hemoglobin (Bld) [Mass/Vol] 14.3 g/dL 12.0-15.0 [facility] Immature granulocytes/100 WB C Auto (Bld)Ordered By: Dwayne Gibson on 09-13-2024 Immature granulocytes/100 WBC (Bld) 0.200 % 0.0-0.9 [facility] Comment on above: IG% - Immature Granu locytes (promyelocytes, myelocytes and metamyelocytes) > 1% indicates that a LEFT SHIFT is Present. LDL calc ser/plasOrdered By: Dwayne Gibson on 09-13-2024 Cholesterol in LDL [Mass/Vol] 59 mg/dL [facility] Comment on above: Fozzvsssty=978-411 m g/dL & Higher Cwgm=158 mg/dL or greater Lipid Profileon 09-13-2024 CHOL:HDL 2.47 Normal [facility] Comment on above: Order Comment: Order Date: 09/16/24 Order Info: 0786-1 - CMP Order Info: [id number] - LIPID Performed By: #### L 506.1001 #### [facility] [address] [place], [address] Cholesterol [Mass/Vol] 146 mg/dL Normal <=200 [facility] Comment on above: Order Comment: Order Date: 09/16/24 Order Info: 0786-1 - CMP Order Info: [id number] - LIPID Result Comment: Chol esterol level, Desirable <200 mg/dL Borderline high cholesterol 200-239 mg/dL High cholesterol >=240 mg/dL Recommendations of the NCEP Adult Treatment Panel for the following risk-cutoff thresholds for the [place] population. Performed By: #### L 506.1001 #### [facility] [address] [place], [address] Cholesterol in HDL [Mass/Vol] 59 mg/dL Normal [facility] Comment on above: Order Comment: Order Date: 09/16/24 Order Info: 0786-1 - CMP Order Info: [id number] - LIPID Result Comment: Viviana onal Cholesterol Education Program (NCEP) guidelines: <40 mg/dL: Low HDL-cholesterol (major risk factor for CHD) >= 60 mg/dL: High HDL-cholesterol (negative risk factor for CHD) HDL-cholesterol is affected by a number of factors, e.g. smoking, exercise, hormones, sex and age. Performed By: #### L 506.1001 #### [facility] [address] [place], [address] Cholesterol in LDL [Mass/Vol] 59 mg/dL Normal [facility] Comment on above: Order Comment: Order Date: 09/16/24 Order Info: 0786- - CMP Order Info: [id number] - LIPID Result Comment: Bord ajsqwa=302-397 mg/dL Higher Zrpe=575 mg/dL or greater Performed By: #### L 506.1001 #### [facility] [address] [place], [address] Cholesterol in VLDL [Mass/Vol] 28 mg/dL Normal 5-40 [facility] Comment on above: Order Comment: Order Date: 09/16/24 Order Info: 0786-1 - CMP Order Info: [id number] - LIPID Performed By: #### L 506.1001 #### [facility] [address] [place], [address] Triglyceride [Mass/Vol] 140 mg/dL Normal [facility] Comment on above: Order Comment: Order Date: 09/16/24 Order Info: 0786-1 - CMP Order Info: [id number] - LIPID Result Comment: The drugs N-Acetylcysteine and Metamizole may falsely depress this assay. Normal range: <150 mg/dL Borderline High: 150-199 mg/dL High: 200-499 mg/dL Very High: >500 mg/dL Performed By: #### L 506.1001 #### [facility] [address] [place], [address] MCV (mean corpuscular volume ) determinationOrdered By: Dwayne Gibson on 09-13-2024 MCV (RBC) [Entitic vol] 85.9 fL 81-99 [facility] Mean corpuscular hemoglobin (MCH) determinationOrdered By: Dwayne Gibson on 09-13-2024 MCH (RBC) [Entitic mass] 28.8 pg 27.0-32.0 [facility] Mean corpuscular hemoglobin concentration (MCHC) determinationOrdered By: Dwayne Gibson on 09-13-2024 MCHC (RBC) [Mass/Vol] 33.6 g/dL 32-36 [facility] Mean platelet volume determi nationOrdered By: Dwayne Gibson on 09-13-2024 Platelet mean volume (Bld) [Entitic vol] 10.4 fL 6.2-12.0 [facility] Monocyte percentageOrdered B y: Dwayne Gibson on 09-13-2024 Monocytes/100 WBC (Bld) 5.5 % 0-10 [facility] Neutrophil percentageOrdered By: Dwayne Gibson on 09-13-2024 Neutrophils/100 WBC (Bld) 61.3 % 47-70 [facility] Nucleated red blood cell per centageOrdered By: Dwayne Gibson on 09-13-2024 Nucleated RBC/100 WBC (Bld) [Ratio] 0 % 0-5 [facility] Platelet countOrdered By: Saide Gibson on 09-13-2024 Platelets (Bld) [#/Vol] 293 10*3/uL 150-450 [facility] RBC Auto (Bld) [#/Vol]Ordere d By: Dwayne Gibson on 09-13-2024 RBC (Bld) [#/Vol] 4.96 10*6/uL 4.2-5.4 [facility] Screening total cholesterol/ high density lipoprotein (HDL) cholesterol ratioOrdered By: Dwayne Gibson on 09-13-2024 Cholesterol.total/Chol esterol in HDL [Mass ratio] 2.47 {ratio} [facility] Serum or plasma cholesterol in HDL measurement (mass/volume)Ordered By: Dwayne Gibson on 09-13-2024 Cholesterol in HDL [Mass/Vol] 59 mg/dL >40 [facility] Comment on above: National Cholesterol Education Program (NCEP) guidelines:<40 mg/dL: Low HDL-cholesterol (major risk factor for CHD)>= 60 mg/dL: High HDL-cholesterol (negative risk factor for CHD)HDL-cholesterol is affected by a number of factors, e.g. smoking, exercise, hormones, sex and age. Serum or plasma cholesterol measurement (mass/volume)Ordered By: Dwayne Gibson on 09-13-2024 Cholesterol [Mass/Vol] 146 mg/dL <201 [facility] Comment on above: Cholesterol level, D esirable <200 mg/dLBorderline high cholesterol 200-239 mg/dLHigh cholesterol >=240 mg/dLRecommendations of the NCEP Adult Treatment Panel for the following risk-cutoff thresholds for the [place] population. Triglycerides measurementOrd ered By: Dwayne Gibson on 09-13-2024 Triglyceride [Mass/Vol] 140 mg/dL <199 [facility] Comment on above: The drugs N-Acetylcy steine and Metamizole may falsely depress this assay. Normal range: <150 mg/dLBorderline High: 150-199 mg/dLHigh: 200-499 mg/dLVery High: >500 mg/dL Vitamin D,25 Hydroxyon 09-13 Vitamin D 25-OH 50.2 ng/mL Normal 30-100 [facility] Comment on above: Order Comment: Order Date: 06/15/24 Order Info: [id number] - LIPID Result Comment: Dimple min D Status Deficiency: <20 ng/mL (50nmol/L) Insufficiency: 20-30 ng/mL (50-75 nmol/L) Sufficiency: 30-100 ng/mL (75-250 nmol/L) Toxicity: >100 ng/mL (>250 nmol/L) Performed By: #### L 506.1001 #### [facility] [address] [place], [address] White blood cell (WBC) count Ordered By: Dwayne Gibson on 09-13-2024 WBC (Bld) [#/Vol] 8.5 10*3/uL 4.4-11.0 [facility] Emergency Department Summary on 06-25-2024 Emergency Department Summary [facility] Medical Records Department [address] [place] [address] Emergency Department Summary 06/25/24 MR#: [id number] Acct: [id number] Name: ЕКАТЕРИНА BA Rep #: [id number] : 1960 64 From: Odilon Guillaume MD [...] 10:32 06/25/24 (more content not included)... Normal [facility] Bone density reportOrdered B y: Ming Andrade on 06-16-2024 Study report Skeletal system DXA [facility] Imaging Services [address] [place] [address] Dexa Bone Density Study MR#: [id number] Acct: [id number] Name: ЕКАТЕРИНА BA Rep #: [id number] : 1960 F 64 From: Raman Andrade DO PCP: Dr. Dwayne Gibson MD Status: RE G CLI Study:Dexa Bone Density Study Date of Exam: 06/15/24 Exam# [id number] Ordering Dr: Dwayne Gibson MD PROCEDURE: DEXA [...] Recommend follow-up as clinically warranted. [facility] CC: Dr. Dwayne Gibson MD ~ Shoe Sprayer: Signed [facility] Breast imaging reportOrdered By: Keny Branch on 06-15-2024 Study report [facility] Imaging Services [address] [place] [address] SCRN MAMM (CAD)W/RUBY BILAT MR#: [id number] Acct: [id number] Name: ЕКАТЕРИНА BA Rep #: [id number] : 1960 F 64 From: Odell Branch MD PCP: Dr. Dwayne Gibson MD Status: RE G CLI Study:SCRN MAMM (CAD)W/RUBY BILAT Date of Exa m: 06/15/24 Exam# [id number] Ordering Dr: Dwayne Gibson MD EXAM: SCRN [...] be mailed to the patient. Reading Location: [facility] CC: Dr. Dwayne Gibson MD ~ Shoe Sprayer: Signed [facility] Dexa Bone Density Studyon Dexa Bone Density Study [facility] Imaging Services [address] [place] [id number] Dexa Bone Density Study MR#: [id number] Acct: [id number] Name: ЕКАТЕРИНА BA Rep #: [id number] : 1960 F 64 From: Ming Benitez i, DO PCP: Dr. Dwayne Gibson MD Status: REG CLI Study: Dexa Bone Density Study Date of Exam: 06/15/24 Exam# [id number] Ordering Dr: Dwayne Gibson MD PROCEDURE: DEXA [...] Location: [place] CC: Dr. Dwayne Gibson MD Shoe Sprayer: Signed Normal [facility] SCRN MAMM (CAD)W/RUBY BILATo n 06-15-2024 SCRN MAMM (CAD)W/RUBY BILAT [facility] Imaging Services [address] [place], [place] [address] SCRN MAMM (CAD)W/RUBY BILAT MR#: [id number] Acct: [id number] Name: ЕКАТЕРИНА BA Rep #: [id number] : 1960 F 64 From: Keny wilhelm MD PCP: Dr. Dwayne Gibson MD Status: REG [facility] Study: SCRN MAMM (CAD)W/RUBY BILAT Date of Exam: 05/28 12/22 Exam# [id number] Ordering Dr: Dwayne Gibson MD EXAM: SCRN [...] be mailed to the patient. Reading Location: [place] [address] CC: Dr. Dwayne Gibson MD Shoe Sprayer: Signed Normal [facility] Absolute lymphocyte countOrd ered By: Dwayne Gibson on 06-07-2024 Lymphocytes Auto (Unsp spec) [#/Vol] 1.98 10*3/uL 0.83-4.51 [facility] Absolute neutrophil countOrd ered By: Dwayne Gibson on 06-07-2024 Neutrophils (Bld) [#/Vol] 4.7 10*3/uL 2.0-7.7 [facility] Anion gap in Serum or Plasma Ordered By: Dwayne Gibson on 06-07-2024 Anion gap [Moles/Vol] 12 mmol/L 5-15 [facility] Automated lymphocyte count a s percentage of total leukocytesOrdered By: Dwayne Gibson on 06-07-2024 Lymphocytes/100 WBC Auto (Unsp spec) 26.9 % 19- [facility] BUN/creatinine ratioOrdered By: Dwayne Gibson on 06-07-2024 Urea nitrogen/Creatinine [Mass ratio] 17.8 mg/mg - [facility] Basophil percentageOrdered B y: Dwayne Gibson on 06-07-2024 Basophils/100 WBC (Bld) 0.5 % 0- [facility] Bilirubin Test strip Ql (U)O rdered By: Dwayne Gibson on 06-07-2024 Bilirubin Ql (U) Negative Negative [facility] Bilirubin, totalOrdered By: Dwayne Gibson on 06-07-2024 Bilirubin [Mass/Vol] 0.28 mg/dL 0.00-1.30 [facility] CBC W/Diff, Automatedon 05-28 Absolute Lymph 1.98 X10 3/uL Normal 0.83-4.51 [facility] Comment on above: Order Comment: Order Date: 03/18/24 Order Info: 0184-1 - CBCD Performed By: #### L 501.5200, L500.4100, L509.1000, L501.9985, L100.0100, L501.2300, L500.4050 #### [facility] [address] [place], [address] Absolute Neut 4.7 X10 3/uL Normal 2.0-7.7 [facility] Comment on above: Order Comment: Order Date: 03/18/24 Order Info: 0184-1 - CBCD Performed By: #### L 501.5200, L500.4100, L509.1000, L501.9985, L100.0100, L501.2300, L500.4050 #### [facility] [address] [place], [address] Basophils/100 WBC (Bld) 0.5 % Normal 0-1 [facility] Comment on above: Order Comment: Order Date: 03/18/24 Order Info: 0184- - CBCD Performed By: #### L 501.5200, L500.4100, L509.1000, L501.9985, L100.0100, L501.2300, L500.4050 #### [facility] [address] [place], [address] Eosinophils/100 WBC (Bld) 3.1 % Normal 0-5 [facility] Comment on above: Order Comment: Order Date: 03/18/24 Order Info: 0184- - CBCD Performed By: #### L 501.5200, L500.4100, L509.1000, L501.9985, L100.0100, L501.2300, L500.4050 #### [facility] [address] [facility] [place], [address] Erythrocyte distribution width (RBC) [Ratio] 13.0 % Normal 11.6-14.6 [facility] Comment on above: Order Comment: Order Date: 03/18/24 Order Info: 0184- - CBCD Performed By: #### L 501.5200, L500.4100, L509.1000, L501.9985, L100.0100, L501.2300, L500.4050 #### [facility] [address] [facility] [place], [address] Hematocrit (Bld) [Volume fraction] 42.3 % Normal 37-47 [facility] Comment on above: Order Comment: Order Date: 03/18/24 Order Info: 0184- - CBCD Performed By: #### L 501.5200, L500.4100, L509.1000, L501.9985, L100.0100, L501.2300, L500.4050 #### [facility] [address] [place], [address] Hemoglobin (Bld) [Mass/Vol] 13.8 g/dL Normal 12.0-15.0 [facility] Comment on above: Order Comment: Order Date: 03/18/24 Order Info: 0184-1 - CBCD Performed By: #### L 501.5200, L500.4100, L509.1000, L501.9985, L100.0100, L501.2300, L500.4050 #### [facility] [address] [place], [address] IG% 0.400 Normal 0.0-0.9 [facility] Comment on above: Order Comment: Order Date: 03/18/24 Order Info: 0184-1 - CBCD Result Comment: IG% - Immature Granulocytes (promyelocytes, myelocytes and metamyelocytes) > 1% indicates that a LEFT SHIFT is Present. Performed By: #### L 501.5200, L500.4100, L509.1000, L501.9985, L100.0100, L501.2300, L500.4050 #### [facility] [address] [place], [address] Lymphocytes/100 WBC (Bld) 26.9 % Normal 19-41 [facility] Comment on above: Order Comment: Order Date: 03/18/24 Order Info: 0184-1 - CBCD Performed By: #### L 501.5200, L500.4100, L509.1000, L501.9985, L100.0100, L501.2300, L500.4050 #### [facility] [address] [place], [address] MCH (RBC) [Entitic mass] 28.8 pg Normal 27.0-32.0 [facility] Comment on above: Order Comment: Order Date: 03/18/24 Order Info: 0184-1 - CBCD Performed By: #### L 501.5200, L500.4100, L509.1000, L501.9985, L100.0100, L501.2300, L500.4050 #### [facility] [address] [place], [address] MCHC (RBC) [Mass/Vol] 32.6 g/dL Normal 32-36 [facility] Comment on above: Order Comment: Order Date: 03/18/24 Order Info: 0184-1 - CBCD Performed By: #### L 501.5200, L500.4100, L509.1000, L501.9985, L100.0100, L501.2300, L500.4050 #### [facility] [address] [place], [address] MCV (RBC) [Entitic vol] 88.3 fL Normal 81-99 [facility] Comment on above: Order Comment: Order Date: 03/18/24 Order Info: 0184-1 - CBCD Performed By: #### L 501.5200, L500.4100, L509.1000, L501.9985, L100.0100, L501.2300, L500.4050 #### [facility] [address] [place], [address] Monocytes/100 WBC (Bld) 4.8 % Normal 0-10 [facility] Comment on above: Order Comment: Order Date: 03/18/24 Order Info: 0184-1 - CBCD Performed By: #### L 501.5200, L500.4100, L509.1000, L501.9985, L100.0100, L501.2300, L500.4050 #### [facility] [address] [place], [address] Neutrophils/100 WBC (Bld) 64.3 % Normal 47-70 [facility] Comment on above: Order Comment: Order Date: 03/18/24 Order Info: 018- - CBCD Performed By: #### L 501.5200, L500.4100, L509.1000, L501.9985, L100.0100, L501.2300, L500.4050 #### [facility] [address] [place], [address] Nucleated RBC (Bld) [#/Vol] 0 10*3/uL Normal 0-5 [facility] Comment on above: Order Comment: Order Date: 03/18/24 Order Info: 018- - CBCD Performed By: #### L 501.5200, L500.4100, L509.1000, L501.9985, L100.0100, L501.2300, L500.4050 #### [facility] [address] [place], [address] Platelet mean volume (Bld) [Entitic vol] 9.9 fL Normal 6.2-12.0 [facility] Comment on above: Order Comment: Order Date: 03/18/24 Order Info: [id number] - CBCD Performed By: #### L 501.5200, L500.4100, L509.1000, L501.9985, L100.0100, L501.2300, L500.4050 #### [facility] [address] [place], [address] Platelets (Bld) [#/Vol] 267 10*3/uL Normal 150-450 [facility] Comment on above: Order Comment: Order Date: 03/18/24 Order Info: 018- - CBCD Performed By: #### L 501.5200, L500.4100, L509.1000, L501.9985, L100.0100, L501.2300, L500.4050 #### [facility] [address] [place], [address] RBC (Bld) [#/Vol] 4.79 10*6/uL Normal 4.2-5.4 [facility] Comment on above: Order Comment: Order Date: 03/18/24 Order Info: 0184-1 - CBCD Performed By: #### L 501.5200, L500.4100, L509.1000, L501.9985, L100.0100, L501.2300, L500.4050 #### [facility] [address] [place], [place], [id number] RDW SD 42.2 fl Normal 35.1-43.9 [facility] Comment on above: Order Comment: Order Date: 03/18/24 Order Info: 0184- - CBCD Performed By: #### L 501.5200, L500.4100, L509.1000, L501.9985, L100.0100, L501.2300, L500.4050 #### [facility] [address] [place], [place], [id number] WBC (Bld) [#/Vol] 7.4 10*3/uL Normal 4.4-11.0 [facility] Comment on above: Order Comment: Order Date: 03/18/24 Order Info: 0184-1 - CBCD Performed By: #### L 501.5200, L500.4100, L509.1000, L501.9985, L100.0100, L501.2300, L500.4050 #### [facility] [address] [place], [place], [address] Calculated very low density lipoprotein (VLDL) cholesterol measurementOrdered By: Dwayne Gibson on 06-07-2024 Calculated very low density lipoprotein (VLDL) cholesterol measurement 34 mg/dL [facility] VLDL Cholesterol 34 mg/dL [facility] Carbon dioxide, total [Moles /volume] in Central venous bloodOrdered By: Dwayne Gibson on 06-07-2024 CO2 [Moles/Vol] 22.7 mmol/L 21.0-32.0 [facility] Chloride assayOrdered By: Sadie Gibson on 06-07-2024 Chloride [Moles/Vol] 103 mmol/L 98-108 [facility] Comprehensive Metabolic Prof ilon 06-07-2024 Albumin [Mass/Vol] 3.9 g/dL Normal 3.4-4.8 [facility] Comment on above: Order Comment: Order Date: 03/18/24 Order Info: [id number] - CMP Order Info: [id number] - LIPID Order Info: [id number] - PHOS Order Info: [id number] - MG Performed By: #### L 501.5200, L500.4100, L509.1000, L501.9985, L100.0100, L501.2300, L500.4050 #### [facility] [address] [place], [address] Albumin/Globulin [Mass ratio] 1.3 {ratio} Normal 0.9-2.4 [facility] Comment on above: Order Comment: Order Date: 03/18/24 Order Info: 785- - CMP Order Info: - LIPID Order Info: 7-1 - PHOS Order Info: [id number] - MG Performed By: #### L 501.5200, L500.4100, L509.1000, L501.9985, L100.0100, L501.2300, L500.4050 #### [facility] [address] [place], [place], [id number] ALK PHOS 85 U/L Normal 35-104 [facility] Comment on above: Order Comment: Order Date: 03/18/24 Order Info: 07-1 - CMP Order Info: [id number] - LIPID Order Info: [id number] - PHOS Order Info: [id number] - MG Performed By: #### L 501.5200, L500.4100, L509.1000, L501.9985, L100.0100, L501.2300, L500.4050 #### [facility] [address] [place], [address] ALT [Catalytic activity/Vol] 19 U/L Normal <=34 [facility] Comment on above: Order Comment: Order Date: 03/18/24 Order Info: 785- - CMP Order Info: [id number] - LIPID Order Info: [id number] - PHOS Order Info: [id number] - MG Performed By: #### L 501.5200, L500.4100, L509.1000, L501.9985, L100.0100, L501.2300, L500.4050 #### [facility] [address] [place], [address] AST [Catalytic activity/Vol] 21 U/L Normal <=31 [facility] Comment on above: Order Comment: Order Date: 03/18/24 Order Info: 785- - CMP Order Info: - LIPID Order Info: [id number] - PHOS Order Info: [id number] - MG Performed By: #### L 501.5200, L500.4100, L509.1000, L501.9985, L100.0100, L501.2300, L500.4050 #### [facility] [address] [place], [address] Bilirubin [Mass/Vol] 0.28 mg/dL Normal 0.00-1.30 [facility] Comment on above: Order Comment: Order Date: 03/18/24 Order Info: 785- - CMP Order Info: [id number] - LIPID Order Info: [id number] - PHOS Order Info: [id number] - MG Performed By: #### L 501.5200, L500.4100, L509.1000, L501.9985, L100.0100, L501.2300, L500.4050 #### [facility] [address] [place], [address] BUN/CRE 17.8 RATIO Normal 10-20 [facility] Comment on above: Order Comment: Order Date: 03/18/24 Order Info: 785- - CMP Order Info: - LIPID Order Info: [id number] - PHOS Order Info: [id number] - MG Performed By: #### L 501.5200, L500.4100, L509.1000, L501.9985, L100.0100, L501.2300, L500.4050 #### [facility] [address] [place], [address] Calcium [Mass/Vol] 8.8 mg/dL Normal 7.6-11.0 [facility] Comment on above: Order Comment: Order Date: 03/18/24 Order Info: 86-1 - CMP Order Info: [id number] - LIPID Order Info: [id number] - PHOS Order Info: [id number] - MG Performed By: #### L 501.5200, L500.4100, L509.1000, L501.9985, L100.0100, L501.2300, L500.4050 #### [facility] [address] [place], [address] Chloride [Moles/Vol] 103 mmol/L Normal 98-108 [facility] Comment on above: Order Comment: Order Date: 03/18/24 Order Info: 785- - CMP Order Info: [id number] - LIPID Order Info: 277- - PHOS Order Info: [id number] - MG Performed By: #### L 501.5200, L500.4100, L509.1000, L501.9985, L100.0100, L501.2300, L500.4050 #### [facility] [address] [place], [address] CO2 [Moles/Vol] 22.7 mmol/L Normal 21.0-32.0 [facility] Comment on above: Order Comment: Order Date: 03/18/24 Order Info: 86-1 - CMP Order Info: [id number] - LIPID Order Info: 2777-1 - PHOS Order Info: [id number] - MG Performed By: #### L 501.5200, L500.4100, L509.1000, L501.9985, L100.0100, L501.2300, L500.4050 #### [facility] [address] [place], [place], [id number] Creatinine [Mass/Vol] 0.94 mg/dL Normal 0.70-1.20 [facility] Comment on above: Order Comment: Order Date: 03/18/24 Order Info: 0786-1 - CMP Order Info: [id number] - LIPID Order Info: [id number] - PHOS Order Info: [id number] - MG Performed By: #### L 501.5200, L500.4100, L509.1000, L501.9985, L100.0100, L501.2300, L500.4050 #### [facility] [address] [place], [place], [id number] GAP 12 Normal 5-15 [facility] Comment on above: Order Comment: Order Date: 03/18/24 Order Info: 07- - CMP Order Info: [id number] - LIPID Order Info: 277-1 - PHOS Order Info: [id number] - MG Performed By: #### L 501.5200, L500.4100, L509.1000, L501.9985, L100.0100, L501.2300, L500.4050 #### [facility] [address] [place], [place], [id number] GFR/1.73 sq M.predicted among non-blacks MDRD (S/P/Bld) [Vol rate/Area] 67 mL/min/{1.73_m2} Normal >60 [facility] Comment on above: Order Comment: Order Date: 03/18/24 Order Info: 0786-1 - CMP Order Info: [id number] - LIPID Order Info: 2777-1 - PHOS Order Info: [id number] - MG Result Comment: mL/m in/1.73m2 CKD-EPI Creatinine Equation (2020) Performed By: #### L 501.5200, L500.4100, L509.1000, L501.9985, L100.0100, L501.2300, L500.4050 #### [facility] [address] [place], [address] Globulin (S) [Mass/Vol] 3.1 g/dL Normal 2.2-4.2 [facility] Comment on above: Order Comment: Order Date: 03/18/24 Order Info: 785-1 - CMP Order Info: [id number] - LIPID Order Info: 2777- - PHOS Order Info: [id number] - MG Performed By: #### L 501.5200, L500.4100, L509.1000, L501.9985, L100.0100, L501.2300, L500.4050 #### [facility] [address] [place], [address] Glucose [Mass/Vol] 113 mg/dL High 70-99 [facility] Comment on above: Order Comment: Order Date: 03/18/24 Order Info: 785- - CMP Order Info: [id number] - LIPID Order Info: [id number] - PHOS Order Info: [id number] - MG Performed By: #### L 501.5200, L500.4100, L509.1000, L501.9985, L100.0100, L501.2300, L500.4050 #### [facility] [address] [place], [address] Potassium [Moles/Vol] 4.1 mmol/L Normal 3.3-5.1 [facility] Comment on above: Order Comment: Order Date: 03/18/24 Order Info: 785- - CMP Order Info: [id number] - LIPID Order Info: [id number] - PHOS Order Info: [id number] - MG Performed By: #### L 501.5200, L500.4100, L509.1000, L501.9985, L100.0100, L501.2300, L500.4050 #### [facility] [address] [place], [address] Sodium [Moles/Vol] 138 mmol/L Normal 133-145 [facility] Comment on above: Order Comment: Order Date: 03/18/24 Order Info: 07- - CMP Order Info: [id number] - LIPID Order Info: [id number] - PHOS Order Info: [id number] - MG Performed By: #### L 501.5200, L500.4100, L509.1000, L501.9985, L100.0100, L501.2300, L500.4050 #### [facility] [address] [place], [address] T PROT 7.0 g/dL Normal 5.9-8.4 [facility] Comment on above: Order Comment: Order Date: 03/18/24 Order Info: 785-03 - CMP Order Info: [id number] - LIPID Order Info: [id number] - PHOS Order Info: [id number] - MG Performed By: #### L 501.5200, L500.4100, L509.1000, L501.9985, L100.0100, L501.2300, L500.4050 #### [facility] [address] [place], [place], [id number] Urea nitrogen [Mass/Vol] 17 mg/dL Normal 4-19 [facility] Comment on above: Order Comment: Order Date: 03/18/24 Order Info: 0786 - CMP Order Info: [id number] - LIPID Order Info: [id number] - PHOS Order Info: [id number] - MG Performed By: #### L 501.5200, L500.4100, L509.1000, L501.9985, L100.0100, L501.2300, L500.4050 #### [facility] [address] [place], [address] Creatinine Unsp time (U) [Ma ss/Vol]Ordered By: Dwayne Gibson on 06-07-2024 Creatinine (U) [Mass/Vol] 13.90 mg/dL Low 28-217 [facility] Eosinophil percentageOrdered By: Dwayne Gibson on 06-07-2024 Eosinophils/100 WBC (Bld) 3.1 % 0-5 [facility] Epithelial cells.squamous LM Ql (Urine sed)Ordered By: Dwayne Gibson on 06-07-2024 Epithelial cells.squamous LM.HPF (Urine sed) [#/Area] 0 /[HPF] 5-10 [facility] Erythrocyte distribution wid th ratioOrdered By: Dwayne Gibson on 06-07-2024 Erythrocyte distribution width (RBC) [Ratio] 13.0 % 11.6-14.6 [facility] Erythrocyte distribution wid th standard deviationOrdered By: Dwayne Gibson on 06-07-2024 Erythrocyte distribution width (RBC) [Entitic vol] 42.2 fL 35.1-43.9 [facility] Erythrocyte distribution width (RBC) [Ratio] 42.2 fl 35.1-43.9 [facility] GFR/1.73 sq M.predicted tamara g non-blacks MDRD (S/P/Bld) [Vol rate/Area]Ordered By: Dwayne Gibson on 06-07-2024 Estimated GFR (MDRD) Non-Af Amer 67 >60 [facility] Comment on above: mL/min/1.73m2 CKD-EP I Creatinine Equation (2020) Glomerular filtration rate ( GFR) estimation/1.73 sq m using serum, plasma, or whole bOrdered By: Dwayne Gibson on 06-07-2024 GFR/1.73 sq M.predicted among non-blacks MDRD (S/P/Bld) [Vol rate/Area] 67 mL/min/{1.73_m2} >60 [facility] Comment on above: mL/min/1.73m2 CKD-EP I Creatinine Equation (2020) Glucose Ql (U)Ordered By: Sadie Gibson on 06-07-2024 Urine Glucose (UA) Normal mg/dl Normal [facility] Hematocrit Auto (Bld) [Volum e fraction]Ordered By: Dwayne Gibson on 06-07-2024 Hematocrit (Bld) [Volume fraction] 42.3 % 37-47 [facility] Hemoglobin A1con 06-07-2024 HbA1c (Bld) [Mass fraction] 6.0 % Normal <=5.6 [facility] Comment on above: Order Comment: Order Date: 03/18/24 Order Info: [id number] - A1C Performed By: #### L 501.5200, L500.4100, L509.1000, L501.9985, L100.0100, L501.2300, L500.4050 #### [facility] [address] [place], [place], [id number] Hemoglobin A1c percentageOrd ered By: Dwayne Gibson on 06-07-2024 HbA1c (Bld) [Mass fraction] 6.0 % >5.7 [facility] Hemoglobin measurementOrdere d By: Dwayne Gibson on 06-07-2024 Hemoglobin (Bld) [Mass/Vol] 13.8 g/dL 12.0-15.0 [facility] Immature granulocytes/100 WB C Auto (Bld)Ordered By: Dwayne Gibson on 06-07-2024 Immature granulocytes/100 WBC (Bld) 0.400 % 0.0-0.9 [facility] Comment on above: IG% - Immature Granu locytes (promyelocytes, myelocytes and metamyelocytes) > 1% indicates that a LEFT SHIFT is Present. Ketones Test strip Ql (U)Ord ered By: Dwayne Gibson on 06-07-2024 Ketones Ql (U) Negative Negative [facility] L506.1001on 06-07-2024 Vitamin D 25-OH 15.8 ng/mL Low 30-100 [facility] Comment on above: Order Comment: Order Date: 09/16/24 Order Info: 0786-1 - CMP Order Info: [id number] - LIPID Result Comment: Dimple min D Status Deficiency: <20 ng/mL (50nmol/L) Insufficiency: 20-30 ng/mL (50-75 nmol/L) Sufficiency: 30-100 ng/mL (75-250 nmol/L) Toxicity: >100 ng/mL (>250 nmol/L) Performed By: #### L 506.1001 #### [facility] [address] [place], [place], [address] LDL calc ser/plasOrdered By: Dwayne Gibson on 06-07-2024 Cholesterol in LDL [Mass/Vol] 63 mg/dL [facility] Comment on above: Qqshoqfcfs=741-562 m g/dL & Higher Ledn=917 mg/dL or greater LDL Cholesterol, Calculated 63 mg/dL [facility] Comment on above: Uysctwajbc=378-471 m g/dL & Higher Wtbm=485 mg/dL or greater Laboratory - Chemistry and C hemistry - challengeOrdered By: Dwayne Gibson on 06-07-2024 AST [Catalytic activity/Vol] 21 U/L <32 [facility] Lipid Profileon 06-07-2024 CHOL:HDL 2.56 Normal [facility] Comment on above: Order Comment: Order Date: 03/18/24 Order Info: 0786-1 - CMP Order Info: [id number] - LIPID Order Info: [id number]- - PHOS Order Info: [id number] - MG Performed By: #### L 501.5200, L500.4100, L509.1000, L501.9985, L100.0100, L501.2300, L500.4050 #### [facility] [address] [place], [address] Cholesterol [Mass/Vol] 160 mg/dL Normal <=200 [facility] Comment on above: Order Comment: Order Date: 03/18/24 Order Info: [id number] - CMP Order Info: [id number] - LIPID Order Info: [id number]- - PHOS Order Info: [id number] - MG Result Comment: Chol esterol level, Desirable <200 mg/dL Borderline high cholesterol 200-239 mg/dL High cholesterol >=240 mg/dL Recommendations of the NCEP Adult Treatment Panel for the following risk-cutoff thresholds for the [place] population. Performed By: #### L 501.5200, L500.4100, L509.1000, L501.9985, L100.0100, L501.2300, L500.4050 #### [facility] [address] [place], [address] Cholesterol in HDL [Mass/Vol] 63 mg/dL Normal [facility] Comment on above: Order Comment: Order Date: 03/18/24 Order Info: 0786- - CMP Order Info: - LIPID Order Info: [id number] - PHOS Order Info: [id number] - MG Result Comment: Viviana onal Cholesterol Education Program (NCEP) guidelines: <40 mg/dL: Low HDL-cholesterol (major risk factor for CHD) >= 60 mg/dL: High HDL-cholesterol (negative risk factor for CHD) HDL-cholesterol is affected by a number of factors, e.g. smoking, exercise, hormones, sex and age. Performed By: #### L 501.5200, L500.4100, L509.1000, L501.9985, L100.0100, L501.2300, L500.4050 #### [facility] [address] [place], [address] (273) Cholesterol in LDL [Mass/Vol] 63 mg/dL Normal [facility] Comment on above: Order Comment: Order Date: 03/18/24 Order Info: 07 - CMP Order Info: - LIPID Order Info: [id number] - PHOS Order Info: [id number] - MG Result Comment: Bord wufkky=390-522 mg/dL Higher Wizn=161 mg/dL or greater Performed By: #### L 501.5200, L500.4100, L509.1000, L501.9985, L100.0100, L501.2300, L500.4050 #### [facility] [address] [place], [place], [phone] (645) Cholesterol in VLDL [Mass/Vol] 34 mg/dL Normal 5-40 [facility] Comment on above: Order Comment: Order Date: 03/18/24 Order Info: 0786 - CMP Order Info: - LIPID Order Info: [id number] - PHOS Order Info: [id number] - MG Performed By: #### L 501.5200, L500.4100, L509.1000, L501.9985, L100.0100, L501.2300, L500.4050 #### [facility] [address] [place], [place], [address] Triglyceride [Mass/Vol] 171 mg/dL Normal [facility] Comment on above: Order Comment: Order Date: 03/18/24 Order Info: 0786 - CMP Order Info: [id number] - LIPID Order Info: [id number] - PHOS Order Info: [id number] - MG Result Comment: The drugs N-Acetylcysteine and Metamizole may falsely depress this assay. Normal range: <150 mg/dL Borderline High: 150-199 mg/dL High: 200-499 mg/dL Very High: >500 mg/dL Performed By: #### L 501.5200, L500.4100, L509.1000, L501.9985, L100.0100, L501.2300, L500.4050 #### [facility] [address] [place], [place], [address] Lymphocytes Auto (Unsp spec) [#/Vol]Ordered By: Dwayne Gibson on 06-07-2024 Lymphocytes (Bld) [#/Vol] 1.98 10*3/uL 0.83-4.51 [facility] Lymphocytes/100 WBC Auto (Un sp spec)Ordered By: Dwayne Gibson on 06-07-2024 Lymphocytes/100 WBC (Bld) 26.9 % 19-41 [facility] MCV (mean corpuscular volume ) determinationOrdered By: Dwayne Gibson on 06-07-2024 MCV (RBC) [Entitic vol] 88.3 fL 81-99 [facility] Magnesiumon 06-07-2024 Magnesium [Mass/Vol] 1.4 mg/dL Low 1.5-2.2 [facility] Comment on above: Order Comment: Order Date: 03/18/24 Order Info: 0786- - CMP Order Info: [id number] - LIPID Order Info: [id number] - PHOS Order Info: - MG Performed By: #### L 501.5200, L500.4100, L509.1000, L501.9985, L100.0100, L501.2300, L500.4050 #### [facility] [address] [place], [address] Magnesium (Unsp spec) [Mass/ Vol]Ordered By: Dwayne Gibson on 06-07-2024 Magnesium [Mass/Vol] 1.4 mg/dL Low 1.5-2.2 [facility] Magnesium measurement (mass/ volume)Ordered By: Dwayne Gibson on 06-07-2024 Magnesium (Unsp spec) [Mass/Vol] 1.4 mg/dL Low 1.5-2.2 [facility] Mean corpuscular hemoglobin (MCH) determinationOrdered By: Dwayne Gibson on 06-07-2024 MCH (RBC) [Entitic mass] 28.8 pg 27.0-32.0 [facility] Mean corpuscular hemoglobin concentration (MCHC) determinationOrdered By: Dwayne Gibson on 06-07-2024 MCHC (RBC) [Mass/Vol] 32.6 g/dL 32-36 [facility] Mean platelet volume determi nationOrdered By: Dwayne Gibson on 06-07-2024 Platelet mean volume (Bld) [Entitic vol] 9.9 fL 6.2-12.0 [facility] Microscopic analysis of urin e for red blood cells (RBC)Ordered By: Dwayne Gibson on 06-07-2024 Microscopic analysis of urine for red blood cells (RBC) 0-5 SEEN /hpf 0-5 [facility] Urine RBC 0-5 SEEN /hpf 0-5 [facility] Monocyte percentageOrdered B y: Dwayne Gibson on 06-07-2024 Monocytes/100 WBC (Bld) 4.8 % 0-10 [facility] Mucus LM Ql (Urine sed)Order ed By: Dwanye Gibson on 06-07-2024 Mucus Ql (Urine sed) 0 SEEN /hpf [facility] Neutrophil percentageOrdered By: Dwayne Gibson on 06-07-2024 Neutrophils/100 WBC (Bld) 64.3 % 47-70 [facility] Nitrite Test strip Ql (U)Ord ered By: Dwayne Gibson on 06-07-2024 Nitrite Ql (U) Negative Negative [facility] Nucleated red blood cell per centageOrdered By: Dwayne Gibson on 06-07-2024 Nucleated RBC/100 WBC (Bld) [Ratio] 0 % 0-5 [facility] PTH intactOrdered By: Dwayne ricks on 06-07-2024 Parathyroid Hormone (Intact) 57 pg/mL [facility] PTHINon 06-07-2024 PTH 57 pg/mL Normal [facility] Comment on above: Order Comment: Order Date: 03/18/24 Order Info: [id number] - PTHIN Performed By: #### L 501.5200, L500.4100, L509.1000, L501.9985, L100.0100, L501.2300, L500.4050 #### [facility] [address] [place], [address] Phosphoruson 06-07-2024 Phosphate [Mass/Vol] 2.8 mg/dL Normal 2.7-4.5 [facility] Comment on above: Order Comment: Order Date: 03/18/24 Order Info: 0786-1 - CMP Order Info: [id number] - LIPID Order Info: [id number] - PHOS Order Info: [id number] - MG Performed By: #### L 501.5200, L500.4100, L509.1000, L501.9985, L100.0100, L501.2300, L500.4050 #### [facility] [address] [place], [address] Platelet countOrdered By: Sadie Gibson on 06-07-2024 Platelets (Bld) [#/Vol] 267 10*3/uL 150-450 [facility] Potassium (Unsp spec) [Mass/ Vol]Ordered By: Dwayne Gibson on 06-07-2024 Potassium [Moles/Vol] 4.1 mmol/L 3.3-5.1 [facility] Potassium measurement (mass/ volume)Ordered By: Dwayne Gibson on 06-07-2024 Potassium (Unsp spec) [Mass/Vol] 4.1 mmol/L 3.3-5.1 [facility] Protein Test strip Ql (U)Ord ered By: Dwayne Gibson on 06-07-2024 Protein Ql (U) 30 mg/dl High Negative [facility] Protein+Creatinine Ratio,Uri neon 06-07-2024 PROT:CRE RATIO 1662 mg/g CRE High 0-200 [facility] Comment on above: Performed By: #### L 506.1001 #### [facility] [address] [place], [address] Protein (U) [Mass/Vol] 23.1 mg/dL High 0.0-12.0 [facility] Comment on above: Performed By: #### L 506.1001 #### [facility] [address] [place], [address] UR CREAT 13.90 mg/dL Low 28-217 [facility] Comment on above: Performed By: #### L 506.1001 #### [facility] [address] [place], [address] Protein/Creatinine (U) [Mass ratio]Ordered By: Dwayne Gibson on 06-07-2024 Urine Protein/Creatinine Ratio 1662 mg/g CRE High 0-200 [facility] RBC Auto (Bld) [#/Vol]Ordere d By: Dwayne Gibson on 06-07-2024 RBC (Bld) [#/Vol] 4.79 10*6/uL 4.2-5.4 [facility] Random urine creatinine julee urement (mass/volume)Ordered By: Dwayne Gibson on 06-07-2024 Creatinine Unsp time (U) [Mass/Vol] 13.90 mg/dL Low -217 [facility] Screening total cholesterol/ high density lipoprotein (HDL) cholesterol ratioOrdered By: Dwayne Gibson on 06-07-2024 Cholesterol.total/Chol esterol in HDL [Mass ratio] 2.56 {ratio} [facility] Serum creatinine measurement (mass/volume)Ordered By: Dwayne Gibson on 06-07-2024 Creatinine [Mass/Vol] 0.94 mg/dL 0.70-1.20 [facility] Serum globulin measurementOr dered By: Dwayne Gibson on 06-07-2024 Globulin (S) [Mass/Vol] 3.1 g/dL 2.2-4.2 [facility] Serum glucose measurement (m ass/volume)Ordered By: Dwayne Gibson on 06-07-2024 Glucose [Mass/Vol] 113 mg/dL High 70-99 [facility] Serum or plasma alanine salmon otransferase (ALT) measurementOrdered By: Dwayne Gibson on 06-07-2024 ALT [Catalytic activity/Vol] 19 U/L <35 [facility] Serum or plasma albumin julee urement (mass/volume)Ordered By: Dwayne Gibson on 06-07-2024 Albumin [Mass/Vol] 3.9 g/dL 3.4-4.8 [facility] Serum or plasma albumin/glob ulin mass ratioOrdered By: Dwayne Gibson on 06-07-2024 Albumin/Globulin [Mass ratio] 1.3 {ratio} 0.9-2.4 [facility] Serum or plasma alkaline wagner sphatase measurementOrdered By: Dwayne Gibson on 06-07-2024 ALP [Catalytic activity/Vol] 85 U/L 35-104 [facility] Serum or plasma calcium julee urement (mass/volume)Ordered By: Dwayne Gibson on 06-07-2024 Calcium [Mass/Vol] 8.8 mg/dL 7.6-11.0 [facility] Serum or plasma cholesterol in HDL measurement (mass/volume)Ordered By: Dwayne Gibson on 06-07-2024 Cholesterol in HDL [Mass/Vol] 63 mg/dL >40 [facility] Comment on above: National Cholesterol Education Program (NCEP) guidelines:<40 mg/dL: Low HDL-cholesterol (major risk factor for CHD)>= 60 mg/dL: High HDL-cholesterol (negative risk factor for CHD)HDL-cholesterol is affected by a number of factors, e.g. smoking, exercise, hormones, sex and age. Serum or plasma cholesterol measurement (mass/volume)Ordered By: Dwayen Gibson on 06-07-2024 Cholesterol [Mass/Vol] 160 mg/dL <201 [facility] Comment on above: Cholesterol level, D esirable <200 mg/dLBorderline high cholesterol 200-239 mg/dLHigh cholesterol >=240 mg/dLRecommendations of the NCEP Adult Treatment Panel for the following risk-cutoff thresholds for the [place] population. Serum or plasma urea nitroge n measurement (mass/volume)Ordered By: Dwayne Gibson on 06-07-2024 Urea nitrogen [Mass/Vol] 17 mg/dL 4-19 [facility] Serum phosphorus measurement Ordered By: Dwayne Gibson on 06-07-2024 Phosphorus Level 2.8 mg/dL 2.7-4.5 [facility] Sodium levelOrdered By: Dwayne Gibson on 06-07-2024 Sodium [Moles/Vol] 138 mmol/L 133-145 [facility] Squamous epithelial cells de tection in urine sediment by light microscopyOrdered By: Dwayne Gibson on 06-07-2024 Epithelial cells.squamous LM Ql (Urine sed) 0-5 SEEN /hpf -10 [facility] Total proteinOrdered By: Efrain Gibson on 06-07-2024 Protein [Mass/Vol] 7.0 g/dL 5.9-8.4 [facility] Triglycerides measurementOrd ered By: Dwayne Gibson on 06-07-2024 Triglyceride [Mass/Vol] 171 mg/dL <199 [facility] Comment on above: The drugs N-Acetylcy steine and Metamizole may falsely depress this assay. Normal range: <150 mg/dLBorderline High: 150-199 mg/dLHigh: 200-499 mg/dLVery High: >500 mg/dL Urinalysis, Completeon 06-07 EPI,SQUAMOUS 0-5 SEEN Normal 5-10 [facility] Comment on above: Order Comment: Order Date: 09/16/24 Order Info: [id number] - CMP Order Info: [id number] - LIPID Performed By: #### L 506.1001 #### [facility] [address] [place], [place], [address] RBC 0-5 SEEN Normal 0-5 [facility] Comment on above: Order Comment: Order Date: 09/16/24 Order Info: [id number] - CMP Order Info: [id number] - LIPID Performed By: #### L 506.1001 #### [facility] [address] [place], [address] BACTERIA 0 SEEN Normal None Seen [facility] Comment on above: Order Comment: Order Date: 09/16/24 Order Info: [id number] - CMP Order Info: [id number] - LIPID Performed By: #### L 506.1001 #### [facility] [address] [place], [address] Mucus Ql (Urine sed) 0 SEEN Normal [facility] Comment on above: Order Comment: Order Date: 09/16/24 Order Info: 0786-1 - CMP Order Info: [id number] - LIPID Performed By: #### L 506.1001 #### [facility] [address] [place], [address] WBC 0 SEEN Normal 0-5 [facility] Comment on above: Order Comment: Order Date: 09/16/24 Order Info: [id number] - CMP Order Info: [id number] - LIPID Performed By: #### L 506.1001 #### [facility] [address] [place], [address] Urine blood detectionOrdered By: Dwayne Gibson on 06-07-2024 Urine Occult Blood 25 /ul High Negative [facility] Urine clarityOrdered By: Efrain Gibson on 06-07-2024 Clarity (U) Clear Clear [facility] Urine color determinationOrd ered By: Dwayne Gibson on 06-07-2024 Color (U) Straw Yellow [facility] Urine glucose detectionOrder ed By: Dwayne Gibson on 06-07-2024 Glucose Ql (U) Normal mg/dl Normal [facility] Urine leukocyte esterase det ection by dipstickOrdered By: Dwayne Gibson on 06-07-2024 Leukocyte esterase Test strip Ql (U) Negative Negative [facility] Urine pHOrdered By: Dwayne mejía on 06-07-2024 pH (U) 7.0 [pH] 5.0 - 8.0 [facility] Urine protein measurement (m ass/volume)Ordered By: Dwayne Gibson on 06-07-2024 Protein (U) [Mass/Vol] 23.1 mg/dL High 0.0-12.0 [facility] Urine protein/creatinine mas s ratioOrdered By: Dwayne Gibson on 06-07-2024 Protein/Creatinine (U) [Mass ratio] 1662 mg/g CRE High 0-200 [facility] Urine sediment bacteria coun t by microscopy (number/high power field)Ordered By: Dwayne Gibson on 06-07-2024 Bacteria LM.HPF (Urine sed) [#/Area] 0 /[HPF] None Seen [facility] Urine specific gravity measu rementOrdered By: Dwayne Gibson on 06-07-2024 Specific gravity (U) [Rel density] 1.005 1.002-1.03 0 [facility] Urine urobilinogen measureme ntOrdered By: Dwayne Gibson on 06-07-2024 Urobilinogen Ql (U) Normal mg/dl Normal [facility] Urobilinogen Ql (U)Ordered B y: Dwayne Gibson on 06-07-2024 Urine Urobilinogen Normal mg/dl Normal [facility] Vitamin D, 25-hydroxyOrdered By: Dwayne Gibson on 06-07-2024 Vitamin D 25-Hydroxy 15.8 ng/mL Low 30-100 [facility] Comment on above: Vitamin D StatusDefi ciency: <20 ng/mL (50nmol/L)Insufficiency: 20-30 ng/mL (50-75 nmol/L)Sufficiency: 30-100 ng/mL (75-250 nmol/L)Toxicity: >100 ng/mL (>250 nmol/L) White blood cell (WBC) count Ordered By: Dwayne Gibson on 06-07-2024 WBC (Bld) [#/Vol] 7.4 10*3/uL 4.4-11.0 [facility] White blood cell countOrdere d By: Dwayne Gibson on 06-07-2024 Urine WBC 0 SEEN /hpf 0-5 [facility] White blood cell count 0 SEEN /hpf 0-5 [facility] Basic Metabolic Profile (BMP )on 03-14-2024 BUN/CRE 18.3 RATIO Normal 10-20 [facility] Comment on above: Order Comment: Order Date: 09/16/24 Order Info: [id number] - CMP Order Info: [id number] - LIPID Performed By: #### L [id number] #### [facility] [address] [place], [address] CA,Total 9.8 mg/dL Normal 8.5-10.1 [facility] Comment on above: Order Comment: Order Date: 09/16/24 Order Info: [id number]- - CMP Order Info: [id number] - LIPID Performed By: #### L [id number] #### [facility] [address] [place], [address] Chloride [Moles/Vol] 104 mmol/L Normal 98-107 [facility] Comment on above: Order Comment: Order Date: 09/16/24 Order Info: [id number]- - CMP Order Info: [id number] - LIPID Performed By: #### L [id number] #### [facility] [address] [place], [place], [address] CO2 [Moles/Vol] 27.0 mmol/L Normal 21.0-32.0 [facility] Comment on above: Order Comment: Order Date: 09/16/24 Order Info: [id number] - CMP Order Info: [id number] - LIPID Performed By: #### L [id number] #### [facility] [address] [place], [address] Creatinine [Mass/Vol] 0.98 mg/dL Normal 0.55-1.02 [facility] Comment on above: Order Comment: Order Date: 09/16/24 Order Info: 07-1 - CMP Order Info: [id number] - LIPID Result Comment: The validity of the calculated GFR GFRAA in patients over 70 years has not been determined. Clinical correlation is essential. Performed By: #### L [id number] #### [facility] [address] [place], [address] EST GFR - AA 73 mL/min Normal >60 [facility] Comment on above: Order Comment: Order Date: 09/16/24 Order Info: [id number] - CMP Order Info: [id number] - LIPID Result Comment: Afri can Irish GFR Calc Performed By: #### L [id number] #### [facility] [address] [place], [address] GAP 7 Normal 5-15 [facility] Comment on above: Order Comment: Order Date: 09/16/24 Order Info: [id number]- - CMP Order Info: [id number] - LIPID Performed By: #### L [id number] #### [facility] [address] [place], [address] GFR/1.73 sq M.predicted among non-blacks MDRD (S/P/Bld) [Vol rate/Area] 60 mL/min/{1.73_m2} Normal >60 [facility] Comment on above: Order Comment: Order Date: 09/16/24 Order Info: [id number] - CMP Order Info: [id number] - LIPID Result Comment: Non- GFR Calc Performed By: #### L [id number] #### [facility] [address] [place], [address] Glucose [Mass/Vol] 90 mg/dL Normal 74-106 [facility] Comment on above: Order Comment: Order Date: 09/16/24 Order Info: [id number] - [facility] Order Info: [id number] - LIPID Performed By: #### L [id number] #### [facility] [address] [place], [address] Potassium [Moles/Vol] 3.8 mmol/L Normal 3.5-5.1 [facility] Comment on above: Order Comment: Order Date: 09/16/24 Order Info: [id number]- - CMP Order Info: [id number] - LIPID Performed By: #### L [id number] #### [facility] [address] [place], [address] Sodium [Moles/Vol] 138 mmol/L Normal 136-145 [facility] Comment on above: Order Comment: Order Date: 09/16/24 Order Info: [id number] - CMP Order Info: [id number] - LIPID Performed By: #### L [id number] #### [facility] [address] [place], [place], [id number] Urea nitrogen [Mass/Vol] 18 mg/dL Normal 7-18 [facility] Comment on above: Order Comment: Order Date: 09/16/24 Order Info: [id number] - CMP Order Info: [id number] - LIPID Performed By: #### L [id number] #### [facility] [address] [place], [place], [address] Blood urea nitrogen (BUN)/cr eatinine ratioOrdered By: Dwayne Gibson on 03-14-2024 Urea nitrogen/Creatinine [Mass ratio] 18.3 mg/mg 10-20 [facility] Carbon dioxide measurementOr dered By: Dwayne Gibson on 03-14-2024 CO2 [Moles/Vol] 27.0 mmol/L 21.0-32.0 [facility] Chloride measurementOrdered By: Dwayne Gibson on 03-14-2024 Chloride [Moles/Vol] 104 mmol/L 98-107 [facility] Estimated glomerular filtrat ion rate (GFR) AmericanOrdered By: Dwayne Gibson on 03-14-2024 Estimated GFR (MDRD) Amer 73 mL/min >60 [facility] Comment on above: GFR Calc Glomerular filtration rate ( GFR) estimationOrdered By: Dwayne Gibson on 03-14-2024 Estimated GFR (MDRD) Non-Af Amer 60 mL/min >60 [facility] Comment on above: Non- GFR Calc Glucose measurementOrdered B y: Dwayne Gibson on 03-14-2024 Glucose [Mass/Vol] 90 mg/dL 74-106 [facility] Potassium measurementOrdered By: Dwayne Gibson on 03-14-2024 Potassium [Moles/Vol] 3.8 mmol/L 3.5-5.1 [facility] Serum anion gap measurementO rdered By: Dwayne Gibson on 03-14-2024 Anion gap [Moles/Vol] 7 mmol/L 5-15 [facility] Serum or plasma calcium julee urement (mass/volume)Ordered By: Dwayne Gibson on 03-14-2024 Calcium [Mass/Vol] 9.8 mg/dL 8.5-10.1 [facility] Serum or plasma creatinine m easurement (mass/volume)Ordered By: Dwayne Gibson on 03-14-2024 Creatinine [Mass/Vol] 0.98 mg/dL 0.55-1.02 [facility] Comment on above: The validity of the calculated GFR & GFRAA in patients over 70 years has not been determined. Clinical correlation is essential. Serum or plasma urea nitroge n measurement (mass/volume)Ordered By: Dwayne Gibson on 03-14-2024 Urea nitrogen [Mass/Vol] 18 mg/dL 7-18 [facility] Sodium levelOrdered By: Dwayne Gibson on 03-14-2024 Sodium [Moles/Vol] 138 mmol/L 136-145 [facility] Absolute lymphocyte countOrd ered By: Dwayne Gibson on 07-30-2023 Lymphocytes Auto (Unsp spec) [#/Vol] 2.39 10*3/uL 0.83-4.51 [facility] Automated lymphocyte count a s percentage of total leukocytesOrdered By: Dwayne Gibson on 07-30-2023 Lymphocytes/100 WBC Auto (Unsp spec) 25.3 % 19-41 [facility] Basophil percentageOrdered B y: Dwayne Gibson on 07-30-2023 Basophil percentage 0-5 SEEN /hpf 0-5 [facility] Basophil percentage 2.5 mg/dL 2.5-4.9 [facility] Basophils/100 WBC (Bld) 0.7 % 0-1 [facility] Bilirubin [Mass/Vol] 0.40 mg/dL 0.20-1.00 [facility] Comment on above: For patients on eltr ombopag therapy, use of Dimension [place] TBIL is not recommended. Chloride [Moles/Vol] 110 mmol/L 98-107 [facility] Cholesterol [Mass/Vol] 152 mg/dL <200 [facility] Comment on above: <200 mg/dL Desirable 200-240 mg/dL Borderline >240 mg/dL High Risk Eosinophils/100 WBC (Bld) 1.9 % 0-5 [facility] Glucose [Mass/Vol] 90 mg/dL 74-106 [facility] Hemoglobin (Bld) [Mass/Vol] 14.1 g/dL 12.0-15.0 [facility] Monocytes/100 WBC (Bld) 5.3 % 0-10 [facility] Neutrophils (Bld) [#/Vol] 6.3 10*3/uL 2.0-7.7 [facility] Neutrophils/100 WBC (Bld) 66.4 % 47-70 [facility] Potassium [Moles/Vol] 3.8 mmol/L 3.5-5.1 [facility] Protein [Mass/Vol] 7.4 g/dL 6.4-8.2 [facility] Sodium [Moles/Vol] 140 mmol/L 136-145 [facility] Triglyceride [Mass/Vol] 149 mg/dL <199 [facility] Comment on above: The drugs N-Acetylcy steine and Metamizole may falsely depress this assay.Serum Triglycerides Reference Interval Normal <150 mg/dL Borderline high 150 - 199 mg/dL High 200 - 499 mg/dL Very High > or = 500 mg/dL WBC (Bld) [#/Vol] 9.4 10*3/uL 4.4-11.0 [facility] Bilirubin Test strip Ql (U)O rdered By: Dwayne Gibson on 07-30-2023 Bilirubin Ql (U) Negative Negative [facility] Determination of erythrocyte mean corpuscular volume (MCV)Ordered By: Dwayne Gibson on 07-30-2023 MCV (RBC) [Entitic vol] 89.6 fL 81-99 [facility] Erythrocyte distribution wid th ratioOrdered By: Dwayne Gibson on 07-30-2023 Erythrocyte distribution width (RBC) [Ratio] 13.1 % 11.6-14.6 [facility] Erythrocyte distribution wid th standard deviationOrdered By: Dwayne Gibson on 07-30-2023 Erythrocyte distribution width (RBC) [Entitic vol] 42.8 fL 35.1-43.9 [facility] Hematocrit Auto (Bld) [Volum e fraction]Ordered By: Dwayne Gibson on 07-30-2023 Hematocrit (Bld) [Volume fraction] 42.9 % 37-47 [facility] Immature granulocytes/100 WB C Auto (Bld)Ordered By: Dwayne Gibson on 07-30-2023 Immature granulocytes/100 WBC (Bld) 0.400 % 0.0-0.9 [facility] Comment on above: IG% - Immature Granu locytes (promyelocytes, myelocytes and metamyelocytes) > 1% indicates that a LEFT SHIFT is Present. Ketones Test strip Ql (U)Ord ered By: Dwayne Gibson on 07-30-2023 Ketones Ql (U) Negative Negative [facility] - Chemistry and C hemistry - challengeOrdered By: Dwayne Gibson on 07-30-2023 Albumin/Globulin [Mass ratio] 1.1 {ratio} 0.9-2.4 [facility] ALP [Catalytic activity/Vol] 71 U/L 45-117 [facility] ALT [Catalytic activity/Vol] 36 U/L 13-56 [facility] Cholesterol in HDL [Mass/Vol] 69 mg/dL >40 [facility] Comment on above: The drugs N-Acetylcy steine and Metamizole may falsely depress this assay. Reference Range HDL <40 mg/dL Low HDL Cholesterol HDL >or= 60 mg/dL High HDL Cholesterol Cholesterol in LDL [Mass/Vol] 53 mg/dL 0-130 [facility] CO2 [Moles/Vol] 24.0 mmol/L 21.0-32.0 [facility] Globulin (S) [Mass/Vol] 3.5 g/dL 2.2-4.2 [facility] Urea nitrogen/Creatinine [Mass ratio] 17.3 mg/mg 10-20 [facility] - Hematology and Cell countsOrdered By: Dwayne Gibson on 07-30-2023 MCH (RBC) [Entitic mass] 29.4 pg 27.0-32.0 [facility] MCHC (RBC) [Mass/Vol] 32.9 g/dL 32-36 [facility] Nucleated RBC/100 WBC (Bld) [Ratio] 0 % 0-5 [facility] Platelet mean volume (Bld) [Entitic vol] 9.8 fL 6.2-12.0 [facility] Platelets (Bld) [#/Vol] 279 10*3/uL 150-450 [facility] Mucus LM Ql (Urine sed)Order ed By: Dwayne Gibson on 07-30-2023 Mucus Ql (Urine sed) 0 SEEN /hpf [facility] Nitrite Test strip Ql (U)Ord ered By: Dwayne Gibson on 07-30-2023 Nitrite Ql (U) Negative Negative [facility] No Panel InformationOrdered By: Dwayne Gibson on 07-30-2023 Urine RBC 0 SEEN /hpf 0-5 [facility] Estimated GFR (MDRD) Amer 69 mL/min >60 [facility] Comment on above: GFR Calc Estimated GFR (MDRD) Non-Af Amer 57 mL/min >60 [facility] Comment on above: Non- GFR Calc Parathyroid Hormone (Intact) 85.2 pg/mL 18.4-80.1 [facility] Vitamin D 25-Hydroxy 29.4 ng/mL [facility] Comment on above: Vitamin D 25(OH) Sta tus Range Deficiency <20 ng/mL (50nmol/L) Insufficiency 20 - 30 ng/mL (50 - 75 nmol/L) Sufficiency 30 - 100 ng/mL (75 - 250 nmol/L) Toxicity >100 ng/mL (>250 nmol/L) VLDL Cholesterol 30 mg/dL 5-40 [facility] Protein Test strip Ql (U)Ord ered By: Dwayne Gibson on 07-30-2023 Protein Ql (U) 100 mg/dl Negative [facility] RBC Auto (Bld) [#/Vol]Ordere d By: Dwayne Gibson on 07-30-2023 RBC (Bld) [#/Vol] 4.79 10*6/uL 4.2-5.4 [facility] Serum or plasma calcium julee urement (mass/volume)Ordered By: Dwayne Gibson on 07-30-2023 Calcium [Mass/Vol] 9.3 mg/dL 8.5-10.1 [facility] Serum or plasma creatinine m easurement (mass/volume)Ordered By: Dwayne Gibson on 07-30-2023 Creatinine [Mass/Vol] 1.04 mg/dL 0.55-1.02 [facility] Comment on above: The validity of the calculated GFR & GFRAA in patients over 70 years has not been determined. Clinical correlation is essential. Serum or plasma urea nitroge n measurement (mass/volume)Ordered By: Dwayne Gibson on 07-30-2023 Urea nitrogen [Mass/Vol] 18 mg/dL 7-18 [facility] Squamous epithelial cells de tection in urine sediment by light microscopyOrdered By: Dwayne Gibson on 07-30-2023 Epithelial cells.squamous LM Ql (Urine sed) 10-25 SEEN /hpf 5-10 [facility] Thin prep Papanicolaou smear with manual screeningOrdered By: Dwayne Gibson on 07-30-2023 Protein (U) [Mass/Vol] 61.8 mg/dL 0.0-11.8 [facility] Thin prep Papanicolaou smear with manual screening 3.9 g/dL 3.2-5.0 [facility] Thin prep Papanicolaou smear with manual screening 22 U/L 15-37 [facility] Thin prep Papanicolaou smear with manual screening 6 5-15 [facility] Urine blood detectionOrdered By: Dwayne Gibson on 07-30-2023 RBC Ql (U) 50 /ul Negative [facility] Urine clarityOrdered By: Efrain Gibson on 07-30-2023 Clarity (U) Clear Clear [facility] Urine color determinationOrd ered By: Dwayne Gibson on 07-30-2023 Color (U) Yellow Yellow [facility] Urine creatinine measurement (mass/volume)Ordered By: Dwayne Gibson on 07-30-2023 Creatinine (U) [Mass/Vol] 51.70 mg/dL NO RANGE EST. [facility] Urine glucose detectionOrder ed By: Dwayne Gibson on 07-30-2023 Glucose Ql (U) Normal mg/dl Normal [facility] Urine leukocyte esterase det ection by dipstickOrdered By: Dwayne Gibson on 07-30-2023 Leukocyte esterase Test strip Ql (U) 25 /ul Negative [facility] Urine pHOrdered By: Dwayne mejía on 07-30-2023 pH (U) 6.0 [pH] 5.0 - 8.0 [facility] Urine protein/creatinine mas s ratioOrdered By: Dwayne Gibson on 07-30-2023 Protein/Creatinine (U) [Mass ratio] 1195 mg/g CRE 0-200 [facility] Urine sediment bacteria coun t by microscopy (number/high power field)Ordered By: Dwayne Gibson on 07-30-2023 Bacteria LM.HPF (Urine sed) [#/Area] RARE /hpf None Seen [facility] Urine specific gravity measu rementOrdered By: Dwayne Gibson on 07-30-2023 Specific gravity (U) [Rel density] 1.010 1.002-1.03 0 [facility] Urine urobilinogen measureme ntOrdered By: Dwayne Gibson on 07-30-2023 Urobilinogen Ql (U) Normal mg/dl Normal [facility] Whole blood hemoglobin A1c/t otal hemoglobin ratio (mass fraction)Ordered By: Dwayne Gibson on 07-30-2023 HbA1c (Bld) [Mass fraction] 5.3 % 3.8-5.6 [facility] Comment on above: Normal < 5.7 % Predi abetic 5.7 - 6.4 % Diabetic >or= 6.5 % Please note range changes. Culture, urineOrdered By: Crystal Spivey on 04-27-2023 Bacteria identified Cx Nom (U) Mixed Gram Pos & Gram Neg Org [facility] Bacteria identified Cx Nom (U) Mixed Gram Pos & Gram Neg Org [facility] - Chemistry and C hemistry - challengeon 04-25-2023 Bilirubin Ql (U) Moderate (2+) [facility] Glucose Ql (U) Negative [facility] Ketones Ql (U) Negative [facility] pH (U) 5.0 [pH] [facility] Specific gravity (U) [Rel density] 1.020 [facility] Urobilinogen (U) [Mass/Vol] Negative [facility] - Hematology and Cell countson 04-25-2023 Hemoglobin Ql (U) Moderate [facility] - Specimen inform ationon 04-25-2023 Clarity (U) Cloudy [facility] Color (U) Yellow [facility] - Urinalysison Nitrite Ql (U) Negative [facility] Protein Ql (U) 2+ [facility] No Panel Informationon 04-25 Urine Leukocytes Positive [facility] Urine Non-Hemolyzed Blood [facility] Basophil percentageOrdered B y: Dwayne Gibson on 10-20-2022 Chloride [Moles/Vol] 109 mmol/L 98-107 [facility] Glucose [Mass/Vol] 100 mg/dL 74-106 [facility] Comment on above: Fasting Glucose resu lt from 100 to 125 mg/dL suggests IMPAIRED HOMEOSTASIS per A.D.A. criteria. Potassium [Moles/Vol] 4.1 mmol/L 3.5-5.1 [facility] Sodium [Moles/Vol] 140 mmol/L 136-145 [facility] - Chemistry and C hemistry - challengeOrdered By: Dwayne Gibson on 10-20-2022 CO2 [Moles/Vol] 24.0 mmol/L 21.0-32.0 [facility] Urea nitrogen/Creatinine [Mass ratio] 20.3 mg/mg 10- [facility] No Panel InformationOrdered By: Dwayne Gibson on 10-20-2022 Estimated GFR (MDRD) Amer 73 mL/min >60 [facility] Comment on above: GFR Calc Estimated GFR (MDRD) Non-Af Amer 60 mL/min >60 [facility] Comment on above: Non- GFR Calc Serum or plasma calcium julee urement (mass/volume)Ordered By: Dwayne Gibson on 10-20-2022 Calcium [Mass/Vol] 8.9 mg/dL 8.5-10.1 [facility] Serum or plasma creatinine m easurement (mass/volume)Ordered By: Dwayne Gibson on 10-20-2022 Creatinine [Mass/Vol] 0.99 mg/dL 0.55-1.02 [facility] Comment on above: The validity of the calculated GFR & GFRAA in patients over 70 years has not been determined. Clinical correlation is essential. Serum or plasma urea nitroge n measurement (mass/volume)Ordered By: Dwayne Gibson on 10-20-2022 Urea nitrogen [Mass/Vol] 20 mg/dL 7-18 [facility] Thin prep Papanicolaou smear with manual screeningOrdered By: Dwayne Gibson on 10-20-2022 Thin prep Papanicolaou smear with manual screening 7 5-15 [facility] Absolute lymphocyte countOrd ered By: Dwayne Iveycatherine on 10-09-2022 Lymphocytes Auto (Unsp spec) [#/Vol] 1.72 10*3/uL 0.83-4.51 [facility] Basophil percentageOrdered B y: Dwayne Gibson on 10-09-2022 Basophils/100 WBC (Bld) 0.8 % 0-1 [facility] Bilirubin [Mass/Vol] 0.50 mg/dL 0.20-1.00 [facility] Comment on above: For patients on eltr ombopag therapy, use of Dimension [place] TBIL is not recommended. Chloride [Moles/Vol] 104 mmol/L 98-107 [facility] Cholesterol [Mass/Vol] 146 mg/dL <200 [facility] Comment on above: <200 mg/dL Desirable 200-240 mg/dL Borderline >240 mg/dL High Risk Eosinophils/100 WBC (Bld) 2.3 % 0-5 [facility] Glucose [Mass/Vol] 106 mg/dL 74-106 [facility] Comment on above: Fasting Glucose resu lt from 100 to 125 mg/dL suggests IMPAIRED HOMEOSTASIS per A.D.A. criteria. Neutrophils (Bld) [#/Vol] 7.0 10*3/uL 2.0-7.7 [facility] Neutrophils/100 WBC (Bld) 74.0 % 47-70 [facility] Potassium [Moles/Vol] 4.0 mmol/L 3.5-5.1 [facility] Protein [Mass/Vol] 7.2 g/dL 6.4-8.2 [facility] Sodium [Moles/Vol] 137 mmol/L 136-145 [facility] Triglyceride [Mass/Vol] 108 mg/dL <199 [facility] Comment on above: The drugs N-Acetylcy steine and Metamizole may falsely depress this assay.Serum Triglycerides Reference Interval Normal <150 mg/dL Borderline high 150 - 199 mg/dL High 200 - 499 mg/dL Very High > or = 500 mg/dL WBC (Bld) [#/Vol] 9.5 10*3/uL 4.4-11.0 [facility] Blood erythrocytes count (nu mber/volume)Ordered By: Dwayne Gibson on 10-09-2022 RBC (Bld) [#/Vol] 4.78 10*6/uL 4.2-5.4 [facility] Blood hemoglobin measurement (mass/volume)Ordered By: Dwayne Gibson on 10-09-2022 Hemoglobin (Bld) [Mass/Vol] 14.2 g/dL 12.0-15.0 [facility] Blood lymphocytes/100 leukoc ytesOrdered By: Dwayne Gibson on 10-09-2022 Lymphocytes/100 WBC (Bld) 18.2 % 19-41 [facility] Blood monocytes/100 leukocyt esOrdered By: Dwayne Gibson on 10-09-2022 Monocytes/100 WBC (Bld) 4.3 % 0-10 [facility] Blood platelet mean volumeOr dered By: Dwayne Gibson on 10-09-2022 Platelet mean volume (Bld) [Entitic vol] 10.0 fL 6.2-12.0 [facility] Determination of erythrocyte mean corpuscular volume (MCV)Ordered By: Dwayne Gibson on 10-09-2022 MCV (RBC) [Entitic vol] 91.6 fL 81-99 [facility] Hematocrit Auto (Bld) [Volum e fraction]Ordered By: Dwayne Gibson on 10-09-2022 Hematocrit (Bld) [Volume fraction] 43.8 % 37-47 [facility] - Chemistry and C hemistry - challengeOrdered By: Dwayne Gibson on 10-09-2022 ALP [Catalytic activity/Vol] 82 U/L 45-117 [facility] ALT [Catalytic activity/Vol] 29 U/L 13-56 [facility] CO2 [Moles/Vol] 24.0 mmol/L 21.0-32.0 [facility] Globulin (S) [Mass/Vol] 3.9 g/dL 2.2-4.2 [facility] Urea nitrogen/Creatinine [Mass ratio] 16.0 mg/mg 10-20 [facility] - Hematology and Cell countsOrdered By: Dwayne Gibson on 07-13-2023 Erythrocyte distribution width (RBC) [Entitic vol] 43.8 fL 35.1-43.9 [facility] Erythrocyte distribution width (RBC) [Ratio] 13.0 % 11.6-14.6 [facility] Immature granulocytes/100 WBC (Bld) 0.400 % 0.0-0.9 [facility] Comment on above: IG% - Immature Granu locytes (promyelocytes, myelocytes and metamyelocytes) > 1% indicates that a LEFT SHIFT is Present. MCH (RBC) [Entitic mass] 29.7 pg 27.0-32.0 [facility] Nucleated RBC/100 WBC (Bld) [Ratio] 0 % 0-5 [facility] MCHC Auto (RBC) [Mass/Vol]Or dered By: Dwayne Gibson on 10-09-2022 MCHC (RBC) [Mass/Vol] 32.4 g/dL 32-36 [facility] No Panel InformationOrdered By: Dwayne Gibson on 10-09-2022 Estimated GFR (MDRD) Amer 67 mL/min >60 [facility] Comment on above: GFR Calc Estimated GFR (MDRD) Non-Af Amer 56 mL/min >60 [facility] Comment on above: Non- GFR Calc Platelets bldOrdered By: Efrain Gibson on 10-09-2022 Platelets (Bld) [#/Vol] 258 10*3/uL 150-450 [facility] Serum or plasma albumin julee urement (mass/volume)Ordered By: Dwayne Gibson on 10-09-2022 Albumin [Mass/Vol] 3.3 g/dL 3.2-5.0 [facility] Serum or plasma albumin/glob ulin mass ratioOrdered By: Dwayne Gibson on 10-09-2022 Albumin/Globulin [Mass ratio] 0.8 {ratio} 0.9-2.4 [facility] Serum or plasma calcium julee urement (mass/volume)Ordered By: Dwayne Gibson on 10-09-2022 Calcium [Mass/Vol] 8.9 mg/dL 8.5-10.1 [facility] Serum or plasma cholesterol in HDL measurement (mass/volume)Ordered By: Dwayne Gibson on 10-09-2022 Cholesterol in HDL [Mass/Vol] 61 mg/dL >40 [facility] Comment on above: The drugs N-Acetylcy steine and Metamizole may falsely depress this assay. Reference Range HDL <40 mg/dL Low HDL Cholesterol HDL >or= 60 mg/dL High HDL Cholesterol Serum or plasma cholesterol in VLDL measurement (mass/volume)Ordered By: Dwayne Gibson on 10-09-2022 Cholesterol in VLDL [Mass/Vol] 22 mg/dL 5-40 [facility] Serum or plasma creatinine m easurement (mass/volume)Ordered By: Dwayne Gibson on 10-09-2022 Creatinine [Mass/Vol] 1.06 mg/dL 0.55-1.02 [facility] Comment on above: The validity of the calculated GFR & GFRAA in patients over 70 years has not been determined. Clinical correlation is essential. Serum or plasma low density lipoprotein (LDL) cholesterol measurement (mass/volume)Ordered By: Dwayne Gibson on 10-09-2022 Cholesterol in LDL [Mass/Vol] 63 mg/dL 0-130 [facility] Serum or plasma urea nitroge n measurement (mass/volume)Ordered By: Dwayne Gibson on 10-09-2022 Urea nitrogen [Mass/Vol] 17 mg/dL 7-18 [facility] Thin prep Papanicolaou smear with manual screeningOrdered By: Dwayne Gibson on 10-09-2022 Thin prep Papanicolaou smear with manual screening 21 U/L 15-37 [facility] Thin prep Papanicolaou smear with manual screening 9 5-15 [facility] Whole blood hemoglobin A1c/t otal hemoglobin ratio (mass fraction)Ordered By: Dwayne Gibson on 10-09-2022 HbA1c (Bld) [Mass fraction] 5.5 % 3.8-5.6 [facility] Comment on above: Normal < 5.7 % Predi abetic 5.7 - 6.4 % Diabetic >or= 6.5 % Please note range changes. Absolute lymphocyte countOrd ered By: Dr. Gibson on 06-13-2022 Lymphocytes Auto (Unsp spec) [#/Vol] 2.11 10*3/uL 0.83-4.51 [facility] Basophil percentageOrdered B y: Dr. Gibson on 06-13-2022 Basophils/100 WBC (Bld) 1.0 % 0-1 [facility] Bilirubin [Mass/Vol] 0.30 mg/dL 0.20-1.00 [facility] Comment on above: For patients on eltr ombopag therapy, use of Dim[place] TBIL is not recommended. Chloride [Moles/Vol] 110 mmol/L 98-107 [facility] Cholesterol [Mass/Vol] 163 mg/dL <200 [facility] Comment on above: <200 mg/dL Desirable 200-240 mg/dL Borderline >240 mg/dL High Risk Eosinophils/100 WBC (Bld) 2.4 % 0-5 [facility] Glucose [Mass/Vol] 119 mg/dL 74-106 [facility] Comment on above: Fasting Glucose resu lt from 100 to 125 mg/dL suggests IMPAIRED HOMEOSTASIS per A.D.A. criteria. Neutrophils (Bld) [#/Vol] 4.5 10*3/uL 2.0-7.7 [facility] Neutrophils/100 WBC (Bld) 61.6 % 47-70 [facility] Potassium [Moles/Vol] 4.2 mmol/L 3.5-5.1 [facility] Protein [Mass/Vol] 6.8 g/dL 6.4-8.2 [facility] Sodium [Moles/Vol] 141 mmol/L 136-145 [facility] Triglyceride [Mass/Vol] 179 mg/dL <199 [facility] Comment on above: The drugs N-Acetylcy steine and Metamizole may falsely depress this assay.Serum Triglycerides Reference Interval Normal <150 mg/dL Borderline high 150 - 199 mg/dL High 200 - 499 mg/dL Very High > or = 500 mg/dL WBC (Bld) [#/Vol] 7.2 10*3/uL 4.4-11.0 [facility] Blood erythrocytes count (nu mber/volume)Ordered By: Dr. Gibson on 06-13-2022 RBC (Bld) [#/Vol] 4.75 10*6/uL 4.2-5.4 [facility] Blood hemoglobin measurement (mass/volume)Ordered By: Dr. Gibson on 06-13-2022 Hemoglobin (Bld) [Mass/Vol] 14.4 g/dL 12.0-15.0 [facility] Blood lymphocytes/100 leukoc ytesOrdered By: Dr. Gibson on 06-13-2022 Lymphocytes/100 WBC (Bld) 29.2 % 19-41 [facility] Blood monocytes/100 leukocyt esOrdered By: Dr. Gibson on 06-13-2022 Monocytes/100 WBC (Bld) 5.4 % 0-10 [facility] Blood platelet mean volumeOr dered By: Dr. Gibson on 06-13-2022 Platelet mean volume (Bld) [Entitic vol] 9.8 fL 6.2-12.0 [facility] Determination of erythrocyte mean corpuscular volume (MCV)Ordered By: Dr. Gibson on 06-13-2022 MCV (RBC) [Entitic vol] 92.6 fL 81-99 [facility] Hematocrit Auto (Bld) [Volum e fraction]Ordered By: Dr. Gibson on 06-13-2022 Hematocrit (Bld) [Volume fraction] 44.0 % 37-47 [facility] Laboratory - Chemistry and C hemistry - challengeOrdered By: Dr. Gibson on 06-13-2022 ALP [Catalytic activity/Vol] 61 U/L 45-117 [facility] ALT [Catalytic activity/Vol] 29 U/L 13-56 [facility] CO2 [Moles/Vol] 25.0 mmol/L 21.0-32.0 [facility] Globulin (S) [Mass/Vol] 3.5 g/dL 2.2-4.2 [facility] Urea nitrogen/Creatinine [Mass ratio] 15.3 mg/mg 10-20 [facility] Laboratory - Hematology and Cell countsOrdered By: Dr. Gibson on 06-13-2022 Erythrocyte distribution width (RBC) [Entitic vol] 42.5 fL 35.1-43.9 [facility] Erythrocyte distribution width (RBC) [Ratio] 12.4 % 11.6-14.6 [facility] Immature granulocytes/100 WBC (Bld) 0.400 % 0.0-0.9 [facility] Comment on above: IG% - Immature Granu locytes (promyelocytes, myelocytes and metamyelocytes) > 1% indicates that a LEFT SHIFT is Present. MCH (RBC) [Entitic mass] 30.3 pg 27.0-32.0 [facility] Nucleated RBC/100 WBC (Bld) [Ratio] 0 % 0-5 [facility] MCHC Auto (RBC) [Mass/Vol]Or dered By: Dr. Gibson on 06-13-2022 MCHC (RBC) [Mass/Vol] 32.7 g/dL 32-36 [facility] No Panel InformationOrdered By: Dr. Gibson on 06-13-2022 Estimated GFR (MDRD) Amer 64 mL/min >60 [facility] Comment on above: GFR Calc Estimated GFR (MDRD) Non-Af Amer 53 mL/min >60 [facility] Comment on above: Non- GFR Calc Platelets bldOrdered By: Dr. Gibson on 06-13-2022 Platelets (Bld) [#/Vol] 254 10*3/uL 150-450 [facility] Serum or plasma albumin julee urement (mass/volume)Ordered By: Dr. Gibson on 06-13-2022 Albumin [Mass/Vol] 3.3 g/dL 3.2-5.0 [facility] Serum or plasma albumin/glob ulin mass ratioOrdered By: Dr. Gibson on 06-13-2022 Albumin/Globulin [Mass ratio] 0.9 {ratio} 0.9-2.4 [facility] Serum or plasma calcium julee urement (mass/volume)Ordered By: Dr. Gibson on 06-13-2022 Calcium [Mass/Vol] 8.5 mg/dL 8.5-10.1 [facility] Serum or plasma cholesterol in HDL measurement (mass/volume)Ordered By: Dr. Gibson on 06-13-2022 Cholesterol in HDL [Mass/Vol] 59 mg/dL >40 [facility] Comment on above: The drugs N-Acetylcy steine and Metamizole may falsely depress this assay. Reference Range HDL <40 mg/dL Low HDL Cholesterol HDL >or= 60 mg/dL High HDL Cholesterol Serum or plasma cholesterol in VLDL measurement (mass/volume)Ordered By: Dr. Gibson on 06-13-2022 Cholesterol in VLDL [Mass/Vol] 36 mg/dL 5-40 [facility] Serum or plasma creatinine m easurement (mass/volume)Ordered By: Dr. Gibson on 06-13-2022 Creatinine [Mass/Vol] 1.11 mg/dL 0.55-1.02 [facility] Comment on above: The validity of the calculated GFR & GFRAA in patients over 70 years has not been determined. Clinical correlation is essential. Serum or plasma low density lipoprotein (LDL) cholesterol measurement (mass/volume)Ordered By: Dr. Gibson on 06-13-2022 Cholesterol in LDL [Mass/Vol] 68 mg/dL 0-130 [facility] Serum or plasma urea nitroge n measurement (mass/volume)Ordered By: Dr. Gibson on 06-13-2022 Urea nitrogen [Mass/Vol] 17 mg/dL 7-18 [facility] Thin prep Papanicolaou smear with manual screeningOrdered By: Dr. Gibson on 06-13-2022 Thin prep Papanicolaou smear with manual screening 23 U/L 15-37 [facility] Thin prep Papanicolaou smear with manual screening 6 5-15 [facility] Whole blood hemoglobin A1c/t otal hemoglobin ratio (mass fraction)Ordered By: Dr. Gibson on 06-13-2022 HbA1c (Bld) [Mass fraction] 5.5 % 3.8-5.6 [facility] Comment on above: Normal < 5.7 % Predi abetic 5.7 - 6.4 % Diabetic >or= 6.5 % Please note range changes. ANES POSTPROC EVALon 022 ANES POSTPROC EVAL HNO ID: [id number] Author: Iftikhar Martinez MD Service: ? Author [...] Leung MD; Iftikhar Martinez MD; Merari Toro APRN.DIRECTOR SPEECH AND HEARING Responsible Provider: Iftikhar Martinez MD Anesthesia Type: [...] February 27, 2022 TIME: 12:32 PM CSN: [id number] Normal [facility] ANES PRE-OPon 02-27-2022 ANES PRE-OP HNO ID: [id number] Author: Iftikhar Martinez MD Service: ? Author Type: Anesthesiologist Type: Anesthesia Preprocedure Evaluation Filed: 02/27/2022 9:07 AM Note Text: ANESTHESIOLOGY DAY OF SURGERY NOTE : 1960 Procedure Information Anesthesia Start Date/Time: 02/27/22 0854 Scheduled providers: Dwayne Leung MD; Iftikhar Martinez MD; Merari Toro APRN.DIRECTOR SPEECH AND HEARING Procedure: EGD - THERAPEUTIC, EUS, OR TUBE [...] and consent discussed: yes. Patient / Responsible [employer] agrees to proceed: yes Patient / [...] February 27, 2022 TIME: 9:07 AM CSN: [id number] Normal [facility] EGD - THERAPEUTIC, EUS, OR T UBE INTERVENTIONSon 02-27-2022 [facility] HISTORY PHYSICALon HISTORY PHYSICAL HNO ID: [id number] Author: Dwayne Leung MD Service: Gastroenterology Author [...] Additional Comments: None Dwayne Leung II, MD [facility] NURSING PROGon 02-27-2022 NURSING PROG HNO ID: [id number] Author: Elizabeth Vang RN Service: ? Author [...] None Electronically Signed By: Elizabeth Vang RN [facility] NURSING PROG HNO ID: [id number] Author: Jessi Calvo LPN Service: Nursing Author [...] By: Jessi Calvo LPN In Department: GASTROENTEROLOGY [facility] [place] 02-18-2022 KIKI Telephone (GASTPR) ЕКАТЕРИНА BA ([id number]) 1960 F DEF Date Time Provider Department 02/18/22 SAMRA SALCEDO During your visit today, we recorded the following information about you: Samra Salcedo LPN 02/18/2022 3:34 PM Signed Attempted to reach the patient at the contact number that they provided [phone] (home) . 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 Deaf [H91.90] 07/31/2011 Digital nerve laceration, finger [S64.40XA] 12/02/2012 Laceration of thumb with tendon involvement [S6*12/02/2012 Impingement syndrome of right shoulder [M75.41] 01/13/2013 Bilateral hearing loss [H91.93] 06/25/2015 GERD (gastroesophageal reflux disease) [K21.9] 06/25/2015 Encounter Status:Closed by SAMRA SALCEDO on 02/18/22 Normal [facility] Basophil percentageon 2021 Chloride [Moles/Vol] 104 mmol/L 98-[address] [facility] Work Phone: Glucose [Mass/Vol] 111 mg/dL 74-106 [facility] Work Phone: Comment on above: Fasting Glucose resu lt from 100 to 125 mg/dL suggests IMPAIRED HOMEOSTASIS per A.D.A. criteria. Potassium [Moles/Vol] 4.1 mmol/L 3.5-5.1 [facility] Work Phone: Sodium [Moles/Vol] 137 mmol/L 136-145 [facility] Work Phone: Laboratory - Chemistry and C hemistry - challengeon 01-09-2022 CO2 [Moles/Vol] 26.0 mmol/L 21.0-32.0 [facility] Work Phone: Urea nitrogen/Creatinine [Mass ratio] 18.8 mg/mg 10-20 [facility] Work Phone: No Panel Informationon 01-09 Estimated GFR (MDRD) Amer 71 mL/min >60 [facility] Work Phone: Comment on above: GFR Calc Estimated GFR (MDRD) Non-Af Amer 59 mL/min >60 [facility] Work Phone: Comment on above: Non- GFR Calc Serum or plasma calcium julee urement (mass/volume)on 01-09-2022 Calcium [Mass/Vol] 9.0 mg/dL 8.5-10.1 [facility] Work Phone: Serum or plasma creatinine m easurement (mass/volume)on 01-09-2022 Creatinine [Mass/Vol] 1.01 mg/dL 0.55-1.02 [facility] Work Phone: Comment on above: The validity of the calculated GFR & GFRAA in patients over 70 years has not been determined. Clinical correlation is essential. Serum or plasma urea nitroge n measurement (mass/volume)on 01-09-2022 Urea nitrogen [Mass/Vol] 19 mg/dL 7-18 [facility] Work Phone: Thin prep Papanicolaou smear with manual screeningon 01-09-2022 Thin prep Papanicolaou smear with manual screening 7 5-15 [facility] Work Phone: Absolute lymphocyte counton 01-02-2022 Lymphocytes Auto (Unsp spec) [#/Vol] 2.09 10*3/uL 0.83-4.51 [facility] Work Phone: [phone] Basophil percentageon 2021 Basophils/100 WBC (Bld) 0.8 % 0-1 [facility] Work Phone: [phone] Bilirubin [Mass/Vol] 0.30 mg/dL 0.20-1.00 [facility] Work Phone: Comment on above: For patients on eltr ombopag therapy, use of Dimension [place] TBIL is not recommended. Chloride [Moles/Vol] 109 mmol/L 98-107 [facility] Work Phone: [phone] Cholesterol [Mass/Vol] 165 mg/dL <200 [facility] Work Phone: Comment on above: <200 mg/dL Desirable 200-240 mg/dL Borderline >240 mg/dL High Risk Eosinophils/100 WBC (Bld) 1.6 % 0-5 [facility] Work Phone: [phone] Glucose [Mass/Vol] 110 mg/dL 74-106 [facility] Work Phone: Comment on above: Fasting Glucose resu lt from 100 to 125 mg/dL suggests IMPAIRED HOMEOSTASIS per A.D.A. criteria. Neutrophils (Bld) [#/Vol] 4.6 10*3/uL 2.0-7.7 [facility] Work Phone: [phone] Neutrophils/100 WBC (Bld) 62.7 % 47-70 [facility] Work Phone: [phone] Potassium [Moles/Vol] 4.5 mmol/L 3.5-5.1 [facility] Work Phone: [phone] Protein [Mass/Vol] 7.4 g/dL 6.4-8.2 [facility] Work Phone: [phone] Sodium [Moles/Vol] 141 mmol/L 136-145 [facility] Work Phone: Triglyceride [Mass/Vol] 90 mg/dL <199 [facility] Work Phone: Comment on above: The drugs N-Acetylcy steine and Metamizole may falsely depress this assay.Serum Triglycerides Reference Interval Normal <150 mg/dL Borderline high 150 - 199 mg/dL High 200 - 499 mg/dL Very High > or = 500 mg/dL WBC (Bld) [#/Vol] 7.3 10*3/uL 4.4-11.0 [facility] Work Phone: [phone] Blood erythrocytes count (nu mber/volume)on 01-02-2022 RBC (Bld) [#/Vol] 4.78 10*6/uL 4.2-5.4 [facility] Work Phone: [phone] Blood hemoglobin measurement (mass/volume)on 01-02-2022 Hemoglobin (Bld) [Mass/Vol] 14.7 g/dL 12.0-15.0 [facility] Work Phone: Blood lymphocytes/100 leukoc yteson 01-02-2022 Lymphocytes/100 WBC (Bld) 28.5 % 19-41 [facility] Work Phone: Blood monocytes/100 leukocyt eson 01-02-2022 Monocytes/100 WBC (Bld) 5.9 % 0-10 [facility] Work Phone: Blood platelet mean volumeon 01-02-2022 Platelet mean volume (Bld) [Entitic vol] 9.4 fL 6.2-12.0 [facility] Work Phone: Determination of erythrocyte mean corpuscular volume (MCV)on 01-02-2022 MCV (RBC) [Entitic vol] 92.9 fL 81-99 [facility] Work Phone: [phone] Hematocrit Auto (Bld) [Volum e fraction]on 01-02-2022 Hematocrit (Bld) [Volume fraction] 44.4 % 37-47 [facility] Work Phone: [phone] Laboratory - Chemistry and C hemistry - challengeon 01-02-2022 ALP [Catalytic activity/Vol] 60 U/L 45-117 [facility] Work Phone: ALT [Catalytic activity/Vol] 27 U/L 13-56 [facility] Work Phone: CO2 [Moles/Vol] 26.0 mmol/L 21.0-32.0 [facility] Work Phone: Globulin (S) [Mass/Vol] 4.1 g/dL 2.2-4.2 [facility] Work Phone: Urea nitrogen/Creatinine [Mass ratio] 17.8 mg/mg 10-20 [facility] Work Phone: Laboratory - Hematology and Cell countson 01-02-2022 Erythrocyte distribution width (RBC) [Entitic vol] 41.5 fL 35.1-43.9 [facility] Work Phone: Erythrocyte distribution width (RBC) [Ratio] 12.1 % 11.6-14.6 [facility] Work Phone: Immature granulocytes/100 WBC (Bld) 0.500 % 0.0-0.9 [facility] Work Phone: Comment on above: IG% - Immature Granu locytes (promyelocytes, myelocytes and metamyelocytes) > 1% indicates that a LEFT SHIFT is Present. MCH (RBC) [Entitic mass] 30.8 pg 27.0-32.0 [facility] Work Phone: Nucleated RBC/100 WBC (Bld) [Ratio] 0 % 0-5 [facility] Work Phone: MCHC Auto (RBC) [Mass/Vol]on 01-02-2022 MCHC (RBC) [Mass/Vol] 33.1 g/dL 32-36 [facility] Work Phone: No Panel Informationon 01-02 Estimated GFR (MDRD) Amer 71 mL/min >60 [facility] Work Phone: Comment on above: GFR Calc Estimated GFR (MDRD) Non-Af Amer 59 mL/min >60 [facility] Work Phone: Comment on above: Non- GFR Calc Platelets bldon 01-02-2022 Platelets (Bld) [#/Vol] 250 10*3/uL 150-450 [facility] Work Phone: Serum or plasma albumin julee urement (mass/volume)on 01-02-2022 Albumin [Mass/Vol] 3.3 g/dL 3.2-5.0 [facility] Work Phone: Serum or plasma albumin/glob ulin mass ratioon 01-02-2022 Albumin/Globulin [Mass ratio] 0.8 {ratio} 0.9-2.4 [facility] Work Phone: Serum or plasma calcium julee urement (mass/volume)on 01-02-2022 Calcium [Mass/Vol] 9.2 mg/dL 8.5-10.1 [facility] Work Phone: Serum or plasma cholesterol in HDL measurement (mass/volume)on 01-02-2022 Cholesterol in HDL [Mass/Vol] 75 mg/dL >40 [facility] Work Phone: Comment on above: The drugs N-Acetylcy steine and Metamizole may falsely depress this assay. Reference Range HDL <40 mg/dL Low HDL Cholesterol HDL >or= 60 mg/dL High HDL Cholesterol Serum or plasma cholesterol in VLDL measurement (mass/volume)on 01-02-2022 Cholesterol in VLDL [Mass/Vol] 18 mg/dL 5-40 [facility] Work Phone: Serum or plasma creatinine m easurement (mass/volume)on 01-02-2022 Creatinine [Mass/Vol] 1.01 mg/dL 0.55-1.02 [facility] Work Phone: Comment on above: The validity of the calculated GFR & GFRAA in patients over 70 years has not been determined. Clinical correlation is essential. Serum or plasma low density lipoprotein (LDL) cholesterol measurement (mass/volume)on 01-02-2022 Cholesterol in LDL [Mass/Vol] 72 mg/dL 0-130 [facility] Work Phone: Serum or plasma urea nitroge n measurement (mass/volume)on 01-02-2022 Urea nitrogen [Mass/Vol] 18 mg/dL 7-18 [facility] Work Phone: Thin prep Papanicolaou smear with manual screeningon 01-02-2022 Thin prep Papanicolaou smear with manual screening 21 U/L 15-37 [facility] Work Phone: Thin prep Papanicolaou smear with manual screening 6 5-15 [facility] Work Phone: Whole blood hemoglobin A1c/t otal hemoglobin ratio (mass fraction)on 01-02-2022 HbA1c (Bld) [Mass fraction] 5.5 % 3.8-5.6 [facility] Work Phone: Comment on above: Normal < 5.7 % Predi abetic 5.7 - 6.4 % Diabetic >or= 6.5 % Please note range changes. Basophil percentageon 2021 Bilirubin [Mass/Vol] 0.40 mg/dL 0.20-1.00 [facility] Work Phone: Comment on above: For patients on eltr ombopag therapy, use of [place] TBIL is not recommended. Chloride [Moles/Vol] 108 mmol/L 98-107 [facility] Work Phone: Glucose [Mass/Vol] 104 mg/dL 74-106 [facility] Work Phone: Comment on above: Fasting Glucose resu lt from 100 to 125 mg/dL suggests IMPAIRED HOMEOSTASIS per A.D.A. criteria. Potassium [Moles/Vol] 4.0 mmol/L 3.5-5.1 [facility] Work Phone: Protein [Mass/Vol] 7.3 g/dL 6.4-8.2 [facility] Work Phone: Sodium [Moles/Vol] 144 mmol/L 136-145 [facility] Work Phone: Direct bilirubinon Bilirubin.direct [Mass/Vol] 0.10 mg/dL 0.00-0.30 [facility] Work Phone: Laboratory - Chemistry and C hemistry - challengeon 12-13-2021 ALP [Catalytic activity/Vol] 63 U/L 45-117 [facility] Work Phone: ALT [Catalytic activity/Vol] 27 U/L 13-56 [facility] Work Phone: CO2 [Moles/Vol] 28.0 mmol/L 21.0-32.0 [facility] Work Phone: Globulin (S) [Mass/Vol] 3.8 g/dL 2.2-4.2 [facility] Work Phone: Urea nitrogen/Creatinine [Mass ratio] 16.4 mg/mg 10-20 [facility] Work Phone: No Panel Informationon 12-13 Estimated GFR (MDRD) Amer 61 mL/min >60 [facility] Work Phone: Comment on above: GFR Calc Estimated GFR (MDRD) Non-Af Amer 50 mL/min >60 [facility] Work Phone: Comment on above: Non- GFR Calc Serum or plasma albumin julee urement (mass/volume)on 12-13-2021 Albumin [Mass/Vol] 3.5 g/dL 3.2-5.0 [facility] Work Phone: Serum or plasma albumin/glob ulin mass ratioon 12-13-2021 Albumin/Globulin [Mass ratio] 0.9 {ratio} 0.9-2.4 [facility] Work Phone: Serum or plasma calcium julee urement (mass/volume)on 12-13-2021 Calcium [Mass/Vol] 8.9 mg/dL 8.5-10.1 [facility] Work Phone: Serum or plasma creatinine m easurement (mass/volume)on 12-13-2021 Creatinine [Mass/Vol] 1.16 mg/dL 0.55-1.02 [facility] Work Phone: Comment on above: The validity of the calculated GFR & GFRAA in patients over 70 years has not been determined. Clinical correlation is essential. 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] 04/24/2011 Deaf [H91.90] 07/31/2011 Digital nerve laceration, finger [S64.40XA] 12/02/2012 Laceration of thumb with tendon involvement [S6*12/02/2012 Impingement syndrome of right shoulder [M75.41] 01/13/2013 Bilateral hearing loss [H91.93] 06/25/2015 GERD (gastroesophageal reflux disease) [K21.9] 06/25/2015 Encounter Status:Closed by ÁNGELA RICHTER on 08/06/21 Normal [facility] Iron measurement (mass/mass) on 08-01-2021 Iron (Unsp spec) [Mass/Mass] 74 ug/dL 50-170 [facility] Work Phone: Laboratory - Chemistry and C hemistry - challengeon 08-01-2021 Transferrin [Mass/Vol] 241 mg/dL [facility] Work Phone: Comment on above: Performed at: [address] [id number] Director: Phil Egan PhD, Phone: [phone] No Panel Informationon 08-01 Total Iron Binding Capacity 304 ug/dL 250-450 [facility] Work Phone: Serum or plasma ferritin juan antonio surement (mass/volume)on 08-01-2021 Ferritin [Mass/Vol] 125 ng/mL 8-252 [facility] Work Phone: Absolute lymphocyte counton 07-26-2021 Lymphocytes Auto (Unsp spec) [#/Vol] 2.36 10*3/uL 0.83-4.51 [facility] Work Phone: Basophil percentageon 2021 Basophils/100 WBC (Bld) 0.8 % 0-1 [facility] Work Phone: Bilirubin [Mass/Vol] 0.20 mg/dL 0.20-1.00 [facility] Work Phone: Comment on above: For patients on eltr ombopag therapy, use of [employer] [place] TBIL is not recommended. Chloride [Moles/Vol] 106 mmol/L 98-107 [facility] Work Phone: Cholesterol [Mass/Vol] 175 mg/dL <200 [facility] Work Phone: Comment on above: <200 mg/dL Desirable 200-240 mg/dL Borderline >240 mg/dL High Risk Eosinophils/100 WBC (Bld) 2.1 % 0-5 [facility] Work Phone: Glucose [Mass/Vol] 112 mg/dL 74-106 [facility] Work Phone: Comment on above: Fasting Glucose resu lt from 100 to 125 mg/dL suggests IMPAIRED HOMEOSTASIS per A.D.A. criteria. Neutrophils (Bld) [#/Vol] 6.2 10*3/uL 2.0-7.7 [facility] Work Phone: Neutrophils/100 WBC (Bld) 66.5 % 47-70 [facility] Work Phone: Potassium [Moles/Vol] 4.4 mmol/L 3.5-5.1 [facility] Work Phone: Comment on above: Slight Hemolysis, Re sult may be falsely increased. Protein [Mass/Vol] 6.9 g/dL 6.4-8.2 [facility] Work Phone: Sodium [Moles/Vol] 135 mmol/L 136-145 [facility] Work Phone: Triglyceride [Mass/Vol] 105 mg/dL [facility] Work Phone: Comment on above: The drugs N-Acetylcy steine and Metamizole may falsely depress this assay.Serum Triglycerides Reference Interval Normal <150 mg/dL Borderline high 150 - 199 mg/dL High 200 - 499 mg/dL Very High > or = 500 mg/dL WBC (Bld) [#/Vol] 9.3 10*3/uL 4.4-11.0 [facility] Work Phone: Blood erythrocytes count (nu mber/volume)on 07-26-2021 RBC (Bld) [#/Vol] 5.13 10*6/uL 4.2-5.4 [facility] Work Phone: Blood hemoglobin measurement (mass/volume)on 07-26-2021 Hemoglobin (Bld) [Mass/Vol] 15.6 g/dL 12.0-15.0 [facility] Work Phone: Blood lymphocytes/100 leukoc yteson 07-26-2021 Lymphocytes/100 WBC (Bld) 25.3 % 19-41 [facility] Work Phone: Blood monocytes/100 leukocyt eson 07-26-2021 Monocytes/100 WBC (Bld) 4.9 % 0-10 [facility] Work Phone: [phone] Blood platelet mean volumeon 07-26-2021 Platelet mean volume (Bld) [Entitic vol] 10.0 fL 6.2-12.0 [facility] Work Phone: Determination of erythrocyte mean corpuscular volume (MCV)on 07-26-2021 MCV (RBC) [Entitic vol] 91.4 fL 81-99 [facility] Work Phone: [phone] Hematocrit Auto (Bld) [Volum e fraction]on 07-26-2021 Hematocrit (Bld) [Volume fraction] 46.9 % 37-47 [facility] Work Phone: Laboratory - Chemistry and C hemistry - challengeon 07-26-2021 ALP [Catalytic activity/Vol] 66 U/L 45-117 [facility] Work Phone: [phone] ALT [Catalytic activity/Vol] 29 U/L 13-56 [facility] Work Phone: [phone] CO2 [Moles/Vol] 25.0 mmol/L 21.0-32.0 [facility] Work Phone: [phone] Globulin (S) [Mass/Vol] 3.7 g/dL 2.2-4.2 [facility] Work Phone: [phone] Urea nitrogen/Creatinine [Mass ratio] 22.0 mg/mg 10-20 [facility] Work Phone: Laboratory - Hematology and Cell countson 07-26-2021 Erythrocyte distribution width (RBC) [Entitic vol] 42.7 fL 35.1-43.9 [facility] Work Phone: [phone] Erythrocyte distribution width (RBC) [Ratio] 12.6 % 11.6-14.6 [facility] Work Phone: [phone] Immature granulocytes/100 WBC (Bld) 0.400 % 0.0-0.9 [facility] Work Phone: Comment on above: IG% - Immature Granu locytes (promyelocytes, myelocytes and metamyelocytes) > 1% indicates that a LEFT SHIFT is Present. MCH (RBC) [Entitic mass] 30.4 pg 27.0-32.0 [facility] Work Phone: [phone] Nucleated RBC/100 WBC (Bld) [Ratio] 0 % 0-5 [facility] Work Phone: [phone] MCHC Auto (RBC) [Mass/Vol]on 07-26-2021 MCHC (RBC) [Mass/Vol] 33.3 g/dL 32-36 [facility] Work Phone: [phone] No Panel Informationon 07-26 Estimated GFR (MDRD) Amer 72 mL/min >60 [facility] Work Phone: Comment on above: GFR Calc Estimated GFR (MDRD) Non-Af Amer 60 mL/min >60 [facility] Work Phone: Comment on above: Non- GFR Calc Platelets bldon 07-26-2021 Platelets (Bld) [#/Vol] 239 10*3/uL 150-450 [facility] Work Phone: Serum or plasma albumin julee urement (mass/volume)on 07-26-2021 Albumin [Mass/Vol] 3.2 g/dL 3.2-5.0 [facility] Work Phone: Serum or plasma albumin/glob ulin mass ratioon 07-26-2021 Albumin/Globulin [Mass ratio] 0.9 {ratio} 0.9-2.4 [facility] Work Phone: Serum or plasma calcium julee urement (mass/volume)on 07-26-2021 Calcium [Mass/Vol] 8.6 mg/dL 8.5-10.1 [facility] Work Phone: Serum or plasma cholesterol in HDL measurement (mass/volume)on 07-26-2021 Cholesterol in HDL [Mass/Vol] 57 mg/dL [facility] Work Phone: Comment on above: The drugs N-Acetylcy steine and Metamizole may falsely depress this assay. Reference Range HDL <40 mg/dL Low HDL Cholesterol HDL >or= 60 mg/dL High HDL Cholesterol Serum or plasma cholesterol in VLDL measurement (mass/volume)on 07-26-2021 Cholesterol in VLDL [Mass/Vol] 21 mg/dL 5-40 [facility] Work Phone: Serum or plasma creatinine m easurement (mass/volume)on 07-26-2021 Creatinine [Mass/Vol] 1.00 mg/dL 0.55-1.02 [facility] Work Phone: Comment on above: The validity of the calculated GFR & GFRAA in patients over 70 years has not been determined. Clinical correlation is essential. Serum or plasma low density lipoprotein (LDL) cholesterol measurement (mass/volume)on 07-26-2021 Cholesterol in LDL [Mass/Vol] 97 mg/dL 0-130 [facility] Work Phone: Serum or plasma urea nitroge n measurement (mass/volume)on 07-26-2021 Urea nitrogen [Mass/Vol] 22 mg/dL 7-18 [facility] Work Phone: Thin prep Papanicolaou smear with manual screeningon 07-26-2021 Thin prep Papanicolaou smear with manual screening 19 U/L 15-37 [facility] Work Phone: Comment on above: Slight Hemolysis, Re sult may be falsely increased. Thin prep Papanicolaou smear with manual screening 4 5-15 [facility] Work Phone: Whole blood hemoglobin A1c/t otal hemoglobin ratio (mass fraction)on 07-26-2021 HbA1c (Bld) [Mass fraction] 5.6 % 3.8-5.6 [facility] Work Phone: Comment on above: Normal < 5.7 % Predi abetic 5.7 - 6.4 % Diabetic >or= 6.5 % Please note range changes. Vital Signs Date Time Vital Sign Value Performing Clinician Faci lity 11-16-2024 20:04-0400 Body temperature 98.1 [degF] Dr. Dwayne Gibson MD Work Phone: [facility] 11-16-2024 20:04-0400 Diastolic blood pressure 66 mm[Hg] Dr. Dwayne Gibson MD Work Phone: [facility] 11-16-2024 20:04-0400 Heart rate 70 /min Dr. Dwayne Gibson MD Work Phone: [facility] 11-16-2024 20:04-0400 Respiratory rate 17 /min Dr. Dwayne Gibson MD Work Phone: [facility] 11-16-2024 20:04-0400 SaO2% (BldA) [Mass fraction] 98 % Dr. Dwayne Gibson MD Work Phone: [facility] 11-16-2024 20:04-0400 Systolic blood pressure 127 mm[Hg] Dr. Dwayne Gibson MD Work Phone: [facility] 11-16-2024 17:27-0400 Body mass index (BMI) [Ratio] 34 kg/m2 Dr. Dwayne Gibson MD Work Phone: [facility] 11-16-2024 17:27-0400 Body weight 84.[address] Dwayne Gibson MD Work Phone: 3(398)142-175318 [place] [address] 11-16-2024 17:24-0400 Body height 157.[address] Dwayne Gibson MD Work Phone: 1(184)660-441813 [address] 11-04-2024 07:56-0400 Body temperature 98 [degF] Dr. Dwayne Gibson MD Work Phone: 9(913)551-839727 [place] [address] 11-04-2024 07:56-0400 Diastolic blood pressure 62 mm[Hg] Dr. Dwayne Gibson MD Work Phone: 5(369)375-984927 [place] [address] 11-04-2024 07:56-0400 Heart rate 70 /min Dr. Dwayne Gibson MD Work Phone: 0(556)971-172127 [place] [address] 11-04-2024 07:56-0400 Respiratory rate 18 /min Dr. Dwayne Gibson MD Work Phone: 0(722)303-130927 [place] [address] 11-04-2024 07:56-0400 SaO2% (BldA) [Mass fraction] 97 % Dr. Dwayne Gibson MD Work Phone: 7(069)494-242827 [place] [address] 11-04-2024 07:56-0400 Systolic blood pressure 138 mm[Hg] Dr. Dwayne Gibson MD Work Phone: [facility] 11-04-2024 06:19-0400 Body height 157.[address] Dwayne Gibson MD Work Phone: 7(787)676-150327 [place] [address] 11-04-2024 06:19-0400 Body mass index (BMI) [Ratio] 34.2 kg/m2 Dr. Dwayne Gibson MD Work Phone: 8(205)718-658813 [address] 11-04-2024 06:19-0400 Body weight 84.[address] Dwayne Gibson MD Work Phone: [facility] 11-01-2024 09:27-0400 Body weight 84.[address] Dwayne Gibson MD Work Phone: 8(791)620-144218 [place] [address] 10-03-2024 08:42-0400 Body height 157.[address] Dwayne Gibson MD Work Phone: 2(531)086-198618 [place] [address] 10-03-2024 08:42-0400 Body weight 86.[address] Dwayne Gibson MD Work Phone: 8(022)211-270118 [place] [address] 06-25-2024 10:34-0400 Body temperature 98.6 [degF] Dr. Dwayne Gibson MD Work Phone: 5(226)835-418527 [place] [address] 06-25-2024 10:34-0400 Diastolic blood pressure 78 mm[Hg] Dr. Dwayne Gibson MD Work Phone: 0(350)826-173727 [place] [address] 06-25-2024 10:34-0400 Heart rate 78 /min Dr. Dwayne Gibson MD Work Phone: 7(801)625-814127 [place] [address] 06-25-2024 10:34-0400 Respiratory rate 16 /min Dr. Dwayne Gibson MD Work Phone: 4(324)113-039727 [place] [address] 06-25-2024 10:34-0400 SaO2% (BldA) [Mass fraction] 98 % Dr. Dwayne Gibson MD Work Phone: 2(103)351-845818 [place] [address] 06-25-2024 10:34-0400 Systolic blood pressure 134 mm[Hg] Dr. Dwayne Gibson MD Work Phone: 7(655)971-953018 [place] [address] 06-25-2024 10:32-0400 Body height 157.[address] Dwayne Gibson MD Work Phone: 4(235)719-839318 [place] [address] 06-25-2024 10:32-0400 Body mass index (BMI) [Ratio] 35.4 kg/m2 Dr. Dwayne Gibson MD Work Phone: 4(365)875-151118 [place] [address] 06-25-2024 10:32-0400 Body weight 87.[address] Dwayne Gibson MD Work Phone: [facility] 04-25-2023 08:46-0500 Body height 157.[address] Dwayne Gibson Work Phone: [facility] 04-25-2023 08:46-0500 Body mass index (BMI) [Ratio] 32.2 kg/m2 Dr. Dwayne Gibson Work Phone: [facility] 04-25-2023 08:46-0500 Body temperature 98 [degF] Dr. Dwayne Gibson Work Phone: [facility] 04-25-2023 08:46-0500 Body weight 79.[address] Dwayne Gibson Work Phone: [facility] 04-25-2023 08:46-0500 Diastolic blood pressure 76 mm[Hg] Dr. Dwayne Gibson Work Phone: [facility] 04-25-2023 08:46-0500 Heart rate 93 /min Dr. Dwayne Gibson Work Phone: [facility] 04-25-2023 08:46-0500 Respiratory rate 15 /min Dr. Dwayne Gibson Work Phone: [facility] 04-25-2023 08:46-0500 SaO2% (BldA) [Mass fraction] 98 % Dr. Dwayne Gibson Work Phone: [facility] 04-25-2023 08:46-0500 Systolic blood pressure 132 mm[Hg] Dr. Dwayne Gibson Work Phone: [facility] 02-27-2022 09:50-0500 Diastolic blood pressure 67 mm[Hg] Dwayne Leung MD Work Phone: [facility] 02-27-2022 09:50-0500 Heart rate 81 /min Dwayne Leung MD Work Phone: [facility] 02-27-2022 09:50-0500 Respiratory rate 16 /min Dwayne Leung MD Work Phone: [facility] 02-27-2022 09:50-0500 SaO2% (BldA) [Mass fraction] 95 % Dwayne Leung MD Work Phone: [facility] 02-27-2022 09:50-0500 Systolic blood pressure 98 mm[Hg] Dwayne Leung MD Work Phone: [facility] 02-27-2022 09:33-0500 Body temperature 97.3 [degF] Dwayne Leung MD Work Phone: [facility] 02-27-2022 08:28-0500 Body height 154.9 cm Dwayne Leung MD Work Phone: [facility] 02-27-2022 08:28-0500 Body weight 72.58 kg Dwayne Leung MD Work Phone: [facility] Encounters Encounter Date Encounter Type Care Provider Facility Start: 01-12-2025 End: 01-12-2025 ambulatory Dwayne Gibson Facility:[facility] Start: 12-08-2024 ambulatory Dwayne Gibson Facilit y:[facility] Start: 11-16-2024 End: 11-16-2024 Emergency department patient visit Dr. Dwayne Gibson MD Work Phone: -Emergency Department Work Phone: Start: 11-15-2024 End: 11-15-2024 ambulatory FLETCHER AWAN [facility] Start: 11-14-2024 End: 11-14-2024 ambulatory PATTIE ARMIJO [facility] Start: 11-04-2024 End: 11-04-2024 Emergency department patient [...] ambulatory Dr. Dwayne Gibson MD Work Phone: -[facility] Start: 09-16-2024 End: 09-16-[address] Dwayne Gibson MD -[facility] Start: 09-16-2024 End: 09-16-2024 ambulatory Dwayne Gibson Facility:[facility] Start: 09-13-2024 End: 09-13-[address] Dwayne Gibson MD Work Phone: [facility] Work Phone: Start: 09-13-2024 End: 09-13-[address] Dwayne Gibson MD -[facility] Start: 09-13-2024 End: 09-13-2024 ambulatory Dwayne Gibson Facility:[facility] Start: 06-25-2024 End: 06-25-2024 Emergency department patient visit Dr. Dwayne Gibson MD Work Phone: -Emergency Department Work Phone: Start: 06-15-2024 End: 06-15-[address] Dwayne Gibson MD Work Phone: [facility] Work Phone: Start: 06-15-2024 End: 06-15-[address] Dwayne Gibson MD -Outpatient Bone Densitometry Work Phone: Start: 06-15-2024 End: 06-15-2024 ambulatory Dwayne Gibson Facility:[facility] Start: 06-07-2024 End: 06-07-[address] Dwayne Gibson MD Work Phone: [facility] Work Phone: Start: 06-07-2024 End: 06-07-[address] [facility]: 06-07-2024 End: 06-07-2024 ambulatory Dwayne Gibson Facility:[facility] Start: 03-14-2024 End: 03-14-[address] Dwayne Gibson MD -Laboratory, [facility] Start: 03-14-2024 End: 03-14-2024 ambulatory Dwayne Gibson Facility:[facility] Start: 07-30-2023 End: 07-30-[address] Dwayne Gibson Work Phone: [facility] Work Phone: Start: 07-30-2023 End: 07-30-[address] Dwayne Gibson Work Phone: [facility] Start: 04-27-2023 End: 04-27-[address] Dwayne Gibson Work Phone: [facility] Work Phone: Start: 04-27-2023 End: 04-27-[address] [facility] Start: 04-25-2023 End: 04-25-[address] Dwayne Gibson Work Phone: [facility] Work Phone: Start: 12-26-2022 End: 12-26-2022 ambulatory MERARI TORO Facility:[facility] Start: 12-26-2022 End: 12-26-2022 ambulatory Immunization [facility] Work Phone: [facility] Start: 11-13-2022 End: 11-13-2022 ambulatory [facility] Work Phone: Start: 11-13-2022 End: 11-13-2022 Patient encounter procedure [facility] Work Phone: Start: 10-20-2022 End: 10-20-2022 ambulatory [facility] Work Phone: Start: 10-20-2022 End: 10-20-[address] [facility] Start: 10-09-2022 End: 10-09-2022 ambulatory [facility] Work Phone: Start: 10-09-2022 End: 10-09-[address] [facility] Start: 09-16-2022 End: 09-16-2022 ambulatory [facility] Work Phone: Start: 09-16-2022 End: 09-16-2022 [facility] Start: 06-13-2022 End: 06-13-2022 ambulatory [facility] Work Phone: Start: 06-13-2022 End: 06-13-[address] [facility] Start: 05-27-2022 End: 05-27-2022 ambulatory [facility] Work Phone: Start: 05-27-2022 End: 05-27-2022 Patient encounter procedure [facility] Start: 05-13-2022 End: 05-13-2022 ambulatory [facility] Work Phone: Start: 05-13-2022 End: 05-13-2022 Patient encounter procedure [facility]Cat [facility], [facility] Start: 02-27-2022 End: 02-27-2022 ambulatory MERARI TORO Facility:[facility] Start: 02-27-2022 End: 02-27-2022 Subsequent hospital visit by physician Dwayne Leung MD Work Phone: Gastroenterology Comment on above: Duodenal nodule [K31 .89] Start: 02-18-2022 Telephone encounter Samra Salcedo LPN Gastroenterology Comment on above: Appointment Start: 02-05-2022 ambulatory Guille Conde MD Work Phone: Ambulatory Surgery Start: 01-09-2022 End: 01-09-[address] Dwayne Gibson Work Phone: [facility] Work Phone: Start: 01-09-2022 End: 01-09-[address] Dwayne Gibson Work Phone: [facility] Start: 01-02-2022 End: 01-02-[address] Dwayne Gibson Work Phone: [facility] Work Phone: Start: 01-02-2022 End: 01-02-[address] Dwayne Gibson Work Phone: [facility] Start: 12-26-2021 ambulatory Dwayne Leung MD Work Phone: Gastroenterology Comment on above: schedule upper endos copy Start: 12-25-2021 End: 12-25-2021 ambulatory Dwayne Leung MD Work Phone: Gastroenterology Comment on above: Nodule of intestine (Primary Dx) Start: 12-25-2021 End: 12-25-2021 Telemedicine consultation with patient Dwayne Leung MD Work Phone: [facility] Start: 12-13-2021 End: 12-13-[address] Dwayne Gibson Work Phone: [facility] Work Phone: Start: 12-13-2021 End: 12-13-[address] Dwayne Gibson Work Phone: [facility] Start: 12-10-2021 Non-patient / Non-visit Dr. Dwayne Gibson Work Phone: [facility] Start: 12-10-2021 End: 12-10-[address] Dwayne Gibson Work Phone: [facility] Work Phone: Start: 12-10-2021 End: 12-10-[address] Dwayne Gibson Work Phone: [facility] Services/Neurology Start: 12-05-2021 End: 12-05-2021 ambulatory [facility] Work Phone: Start: 12-05-2021 End: 12-05-2021 Patient encounter procedure [facility] Start: 12-03-2021 End: 12-03-2021 ambulatory [facility] Work Phone: Start: 12-03-2021 End: 12-03-2021 Patient encounter procedure [facility] Start: 08-06-2021 Telephone encounter Zion Patel MD Work Phone: [facility] Comment on above: Appointment (CONSULT TO GI) Start: 08-01-2021 End: 08-01-2021 Patient encounter procedure [facility] Start: 07-26-2021 End: 07-26-[address] [facility] Start: 07-15-2021 End: 07-15-2021 ambulatory Zion Patel MD Work Phone: [facility] Comment on above: Duodenal mass (Prima ry Dx) Start: 07-15-2021 End: 07-15-2021 Telemedicine consultation with patient Zion Patel MD Work Phone: [facility] Start: 05-23-2021 End: 05-23-2021 Patient encounter procedure [facility]Cat Scan, [facility] Start: 04-05-2021 End: 04-05-2021 Patient encounter procedure [facility]-Laboratory, Specimen Procedures Date Procedure Procedure Detail Performing [...] 1996 panel - Serum or Plasma [facility] Work Phone: Start: 01-20-2014 Mammography Zion Patel MD Work Phone: H/O: tubal ligation History of t ubal ligation History of appendectomy History of append ectomy History of cholecystectomy History of cholecystectomy Plan of Treatment Date Care Activity Detail Author Start: 11-16-[address] [facility] Start: 11-16-2024 Enteric precautions [facility] Start: 11-16-2024 Enteric Bacteriology Enteric Bacteri ology [facility] Start: 11-04-2024 Application short le g splint calf foot APPLICATION LOWER LEG SPLINT [facility] Start: 11-04-[address] [facility] Start: 06-25-2024 End: 06-25-2024 [facility] Start: 11-28-2021 Influenza vaccination INFLUENZA (#1) [facility] Start: 07-04-2020 Colonoscopy COLONOSCOPY [facility] Start: 07-04-2020 COLORECTAL CANCER SCREENING COLORECTAL CANCER SCREENING [facility] Start: 11-21-2019 Lipid 1996 panel - S sagar or Plasma Lipid Screening [facility] Start: 11-21-2019 LIPID SCREEN LIPID SCREEN [facility] Start: 03-26-2018 DIABETES SCREEN DIABETES SCREEN [facility] Start: 03-26-2018 Diabetes Screening Diabetes Screenin g [facility] Start: 07-12-2017 Urine microalbumin profile [facility] Start: 01-20-2015 Mammography [facility] Start: 12-31-2014 PNEUMOCOCCAL (2 - PCV) PNEUMOCOCCAL (2 - PCV) [facility] Start: 12-31-2014 Pneumococcal vaccination Pneum ococcal Vaccine (2 - PCV) [facility] Start: 07-24-2013 HPV TESTING HPV TESTING [facility] Start: 07-24-2013 PAP TESTING PAP TESTING [facility] Start: 2009 SHINGRIX VACCINE (1 of 2) SHINGRIX VACCINE (1 of 2) [facility] Start: 01-24-2004 COLOGUARD (FIT-DNA) COLOGUARD (FIT-D NA) [facility] Start: 01-24-[address] COLONOGRAPHY [facility] Start: 01-24-2004 FECAL OCCULT BLOOD FECAL OCCULT BLOO D [facility] Start: 01-24-2004 SIGMOIDOSCOPY SIGMOIDOSCOPY [facility] Start: 1977 HEPATITIS C SCREENING HEPATITIS C SC [facility] Start: 1977 HIV SCREENING HIV SCREENING [facility] Nucleic acid assay [facility] Patient Education [facility] Work Phone: Patient referral [facility] Work Phone: End: 02-05-2023 Screening colonoscopy COLONOSCOPY SCREENING Endoscopy Routine Screening for colon cancer 1 Occurrences starting 02/05/2022 until 02/05/[address] [facility] Work Phone: Comment on above: 1 Occurrences starti ng 02/05/2022 until 02/05/2023 [facility] c Immunizations Immunization Date Immunization Notes Care Provider Fa sachincarmel 12-26-2022 influenza, injectabl e, quadrivalent, contains preservative Immunization Ant[facility] Work Phone: [facility] Work Phone: 07-07-2020 COVID-19 vaccine, ag e 12+ yr (PFIZER-BIONTECH - PURPLE TOP) Zion Patel MD Work Phone: [facility] 06-16-2020 COVID-19 vaccine, ag e 12+ yr (PFIZER-BIONTECH - PURPLE TOP) Zion Patel MD Work Phone: [facility] Work Phone: 05-28-2020 COVID-19 vaccine, ag e 12+ yr (PFIZER-BIONTECH - PURPLE TOP) Zion Patel MD Work Phone: [facility] 12-31-2013 influenza, seasonal, injectable Zion Patel MD Work Phone: [facility] Work Phone: 12-31-2013 pneumococcal polysaccharide vaccine, 23 valent Zion Patel MD Work Phone: [facility] Work Phone: 02-10-2011 influenza virus vaccine, unspecified formulation Zion Patel MD Work Phone: [facility] 01-04-2009 influenza virus vaccine, unspecified formulation Zion Patel MD Work Phone: [facility] Work Phone: 07-13-2007 diphtheria and tetan us toxoids, adsorbed for pediatric use Zion Patel MD Work Phone: [facility] Work Phone: Payers Date Payer Category Payer Self-pay [id number] 2024 Self-pay [id number] 2013 Private Health Insurance [facility] UMR CHOICE PLUS [id number] 2013-Present [phone] [address] [address] [place] [address] O [id number] 2013 Private Health Insurance [facility] UMR CHOICE PLUS [id number] 2013-Present [phone] [address] [address] [place] [address] O [id number] 2002 Unknown [id number] 1960 Unknown [id number] 1960 Unknown [id number] .[id number] Medicare [id number] Unknown [id number] .[id number] Unknown [id number] .[id number] Unknown [id number] .2.462 Unknown [id number] .[id number] Unknown [id number] .2.462 Unknown [id number] [id number] .2.462 Unknown [id number] .2.462 Unknown [id number] .2.462 Unknown [id number] [id number] .2.462 Unknown [id number] .2.462 Unknown [id number] .2.462 Unknown [id number] .2.462 Social History Date Type Detail Facility Start: 03-22-2015 End: 11-28-2024 Tobacco smoking status NHIS Smokes tobacco daily [facility] History of tobacco use Cigarette Smoker C [facility] Start: 03-22-2015 End: 04-25-2022 Cigarettes smoked current (pack per day) - Reported 0.5 [facility] Start: 03-22-2015 End: 06-25-2015 Tobacco use and exposure Smokeless tobacco non-user [facility] Start: 07-15-2021 End: 02-27-2022 Alcohol intake Current drinker of alcohol (finding) [facility] Start: 1960 Sex Assigned At Female [facility] Start: 10-16-2020 End: 04-25-2023 Tobacco smoking status DEIS Unknown if ever smoked [facility] Start: 07-26-[address] [facility] Start: 06-19-2020 Spouse/ Signif icant Other [facility] Start: 02-07-[address] [facility] Start: 12-13-2021 End: 02-27-2022 Exposure to SARS-CoV-2 (event) Not sure [facility] Start: 02-27-2022 End: 04-25-2022 Tobacco use panel [facility] National Score (1-10 0), lower number is lower risk 51 [facility] Start: 06-04-2020 Gender identity Identifies as female gender (finding) [facility] Start: 06-04-2020 Sexual orientation Heterosexual (fin ding) [facility] Start: 06-17-2024 End: 06-25-2024 Sex Female (finding) [facility] Start: 11-16-2024 Tobacco smoking stat us NHIS Ex-smoker (finding) [facility] Clinical Notes 07-15-2021 to 11-04-2024 Elizabeth Vang RN - 02/27/2022 9:45 AM Kandice Calvo LPN - 02/27/2022 8:19 AM ESTSedation Documentation - Roxanna Gomez RN - 02/27/2022 8:59 AM Adriano Leung MD - 02/27/2022 8:30 AM EST Note Date & Type Note Facility 11-04-2024 Discharge summary [facility] 11-04-2024 Radiology Diagnostic study note [facility] Imaging Services [address] [place], [place] [id number] Foot min 3 Views MR#: [id number] Acct: [id number] Name: ЕКАТЕРИНА BA Rep #: [id number] : 1960 F 64 From: Brenden Yadav MD PCP: Dr. Dwayne Gibson MD Status: IA E ER Study:Foot min 3 Views Date of Exam: 11/21 Exam# [id number] Ordering Dr: Risa Zaldiavr DO PROCEDURE: FOOT MIN 3 VIEWS 11/04/2024 [...] OF THE DISTAL FIBULAR DIAPHYSIS. Reading Location: [place] [address] CC: Dr. Dwayne Gibson MD; Dr. Alonso Zaldivar, DO ~ Shoe Sprayer: Signed [facility] 11-04-2024 Radiology Diagnostic study note [facility] Imaging Services [address] [place] [address] Ankle min 3 Views MR#: [id number] Acct: [id number] Name: ЕКАТЕРИНА BA Rep #: [id number] : 1960 F 64 From: Brenden Yadav MD PCP: Dr. Dwayne Gibson MD Status: IA E ER Study:Ankle min 3 Views Date of Exam: Exam# [id number] Ordering Dr: Risa Zaldivar DO PROCEDURE: ANKLE [...] soft tissue edema and swelling. Reading Location: [place] [address] CC: Dr. Dwayne Gibson MD; Dr. Alonso Zaldivra DO ~ Shoe Sprayer: Signed [facility] 06-25-2024 Discharge summary [facility] 02-27-2022 Note Q3 Patient Name: Екатерина Ba [...] present medications. Procedure Code(s): --- Professional --- 76505 Diagnosis Code(s): --- Professional --- D17.5 K83.8 R93.5 CPT copyright 2020 [employer]. All rights reserved. Attending Participation: I was present and participated during the entire procedure, including non-hooper portions. Scope In: 9:01:25 AM Scope Out: 9:23:[address] Dwayne Leung MD, MPH Dwayne Leung MD 02/27/2022 9:30:41 AM This report has been signed electronically by Dwayne Leung MD Number of Addenda: 0 Note Initiated On: 02/27/2022 8:48 AM [facility] 02-27-2022 Nurse Note AMBULATORY PATIENT EDUCATION [...] In Department: GASTROENTEROLOGY documented in this encounter [facility] 02-27-2022 Miscellaneous Notes patient removed partial denture in preop area gave to documented in this encounter [facility] 02-27-2022 History and physical note HISTORY [...] Leung II, MD documented in this encounter [facility] 02-18-2022 Miscellaneous Notes Attempted to reach the patient at the contact number that they provided [phone] (home) . Unable to speak with patient so without identifying the patient the following information was left on their voice mail: Date of procedure, location and report time Prep instructions A message was left informing the patient/patient ambulatory services representative they must have a responsible adult [...] Number to call with questions or concerns [phone] Number to call to cancel their procedure [phone] Samra Salcedo LPN documented in this encounter [facility] 02-05-2022 Note Patient Outreach ( CIND) -------- ЕКАТЕРИНА BA ([id number]) 1960 F DEF Date Time Provider Department [...] cancer [Z12.11] Order(s):COLONOSCOPY SCREENING [GI51] Order #: [id number] FUTURE Prescriptions as of 02/10/2022 - ACETAMINOPHEN [...] Renal cell carcinoma [C64.9] 04/24/2011 Solitary kidney [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 Leung can you place the order for the upper endoscopy so she can get scheduled? Thank you, Doris Roper Heel Sprayer First documented in this encounter [facility] 12-25-2021 History of Present illness Narrative VIRTUAL VISIT PROGRESS NOTE This is a virtual visit using [employer] video visit. It required patient-provider interaction for [...] her to reach out to me via [employer], if not scheduled within the next 24 [...] and tendon repair; done at hospital in [place] PAST SURGICAL HISTORY OF 12/2014 Hysteroscopy, D&C [...] the date of the service which included [id number] patient care Answers submitted by the patient [...] with oil: No documented in this encounter [facility] 08-06-2021 Miscellaneous Notes LEFT MESSAGE FOR PATIENT THAT WE HAVE BEEN IN CLOSE CONTACT WITH DR. MORALES'S OFFICE, HE HAS AGREED TO DO THE EUS/FNA, BUT HE IS NEEDING TO LOOK FURTHER INTO HER RECORDS BEFORE SCHEDULING PROCEDURE. LEFT PHONE TO DR. MORALES'S OFFICE FOR PATIENT TO CALL FOR UPDATES. Ángela Richter LPN documented in this encounter [facility] 07-15-2021 Note HNO ID: [id number] Author: Zion Patel MD Service: ? Author Type: Physician Type: Progress Notes Filed: 07/15/2021 2:17 PM Note Text: Zion Patel M.D. Surgical Oncology 1 [facility], [place] [id number] TELEPHONE VISIT NOTE GREGORY Ba is a [...] evaluation at the request of her local steam bone press tender. Currently, patient reports that overall she is [...] minutes Zion Patel MD 07/15/2021 10:50 AM [facility] 07-15-2021 History of Present illness Narrative Images from the original note were not included. Zion Patel M.D. Surgical Oncology 1 [facility], [address] [address] TELEPHONE VISIT NOTE GREGORY Ba [...] evaluation at the request of her local steam bone press tender. Currently, patient reports that overall she is [...] 07/15/2021 10:50 AM documented in this encounter [facility] Discharge summary Note Date/Time June 25, 2024 11:11am [facility] Medical Records Department [address] [place] [id number] Emergency Department Summary 06/25/24 MR#: [id number] Acct: [id number] Name: ЕКАТЕРИНА BA Rep #:[id number] : 1960 64 From: Odilon Guillaume MD PCP: Dr. Dwayne Gibson MD Status:IA E ER Location: ED HPI <Brandy Alejo [...] Prior similar symptoms: No Recent Illness/Hospitalization: No [facility] <Brandy Alejo RN - Last Filed: 06/25/24 11:10> [facility] Medical History Hiatal hernia Chronic gastritis [...] Alejo RN - Last Filed: 06/25/24 11:10> [facility] Narrative Medical decision making narrative: This appears [...] Guillaume MD - Last Filed: 06/25/24 11:11> [facility] MDM Narrative Medical decision making narrative: I [...] all 4 extremities. 5 out of 5 hairspring i inspector strength. Strong radial pulse. Dorsi plantarflexion intact. [...] your doctor if not improving. Print Language: Japanese Disposition Disposition: Home, Self Care What to do if you have Problems For any increased pain, shortness of breath, bleeding, nausea or vomiting, chestpain, or any unexpected problems, contact your Primary Care Provider. Call [facility] ([phone]) or report to the closest Emergency Room. Call 911 if necessary. 06/25/24 1111 <Electronically signed by Odilon Guillaume MD> Cosigner Signature (if applicable): CC: Dr. Dwayne Gibson MD ~ Signed [facility] Work Phone: Discharge summary Author Alonso Zaldivar [facility] Note Date/Time November 04, 2024 7:1 1am [facility] Medical Records Department [address] [place] [address] Emergency Department Summary 11/04/24 MR#: [id number] Acct: [id number] Name: ЕКАТЕРИНА BA Rep #:[id number] : 1960 64 From: Alonso Zaldivar DO [...] out she denies any blood thinner medications [facility] Medical History Hiatal hernia Chronic gastritis [...] following commands knew that she was at [facility] the year is 2024 Skin: Warm, [...] was advised to rotate Tylenol and ibuprofen rytmuq-sqz-aicqm for mild to moderate pain and use [...] get this wet. Rotate Tylenol and ibuprofen xoryiq-toe-jznwn for mild to moderate pain when you [...] put weight on this foot. Print Language: Japanese Disposition Disposition: Home, Self Care What to do if you have Problems For any increased pain, shortness of breath, bleeding, nausea or vomiting, chestpain, or any unexpected problems, contact your Primary Care Provider. Call [facility] ([phone]) or report to the closest Emergency Room. Call 911 if necessary. 11/04/24 0711 <Electronically signed by Alonso Zaldivar DO> Cosigner Signature (if applicable): CC: Dr. Dwayne Gibson MD ~ Signed [facility] Work Phone: Evaluation note* Diagnosis Duodenal mass- Primary Other specified disorder of stomach and duodenum documented in this encounter [facility] noteNo assessment information availableWooFostoria City Hospital Work Phone: Evaluation note* Diagnosis Nodule of intestine- Primary [facility] Diagnosis Screening for colon cancer Special screening for malignant neoplasms, colon documented in this encounter [facility] note* Diagnosis Duodenal nodule- Primary Other specified disorder of stomach and duodenum Dilated bile duct Other specified disorders of biliary tract documented in this encounter [facility] note* Diagnosis Onset Date Resolution Status Urinary tract infection none active [facility] Work Phone: Hospital Discharge instructions Additional Instructions [...] improvement. Follow-up with your doctor if not improving.[facility] Work Phone: Hospital Discharge instructionsAdditional Instructions When sitting you can ice through the splint. Keep the splint dry do not get this wet. Rotate Tylenol and ibuprofen lbpcrh-fvm-euybv for mild to moderate pain when you [...] concerns. Do not put weight on this foot.[facility] Work Phone: Hospital Discharge instructionsAdditional Instructions Creatinine 1.08 with GFR 57. C. difficile negative. Stool studies pending. Continue oral fluids for hydration. Use Lomotil as prescribed. Follow-up with your doctor.[facility] Work Phone: Reason for referral (narrative)* Outpatient Procedure (Routine) - Pending Review Specialty Diagnoses / Procedures Referred By Georges rodriguez Referred To Contact [facility] Diagnoses Screening for colon cancer Procedures COLONOSCOPY SCREENING COLONOSCOPY FLX DX W/COLLJ SPEC WHEN PFRMD Guille Conde MD [address] [place] [address] [facility] [address] [place] [address] Referral ID Status Reason Start Date Expiration Date Visits Requested Visits Authorized [id number] Pending Review Auto-Generat ed Referral 02/05/2022 02/05/2023 1 1 [facility] Outpatient Procedure (Routine) - Closed Specialty Diagnoses / Procedures Referred By Georges rodriguez Referred To Contact ENDOSCOPY Diagnoses Duodenal nodule Dilated bile duct Procedures EGD - THERAPEUTIC, EUS, OR TUBE INTERVENTIONS EGD INTRMURAL US NEEDLE ASPIRATE/BIOPSY ESOPHAGS Dwayne Leung MD [address] [place] [address] [facility] [address] [place] [phone] Referral ID Status Reason Start Date Expiration Date V isits Requested Visits Authorized [id number] Closed Auto-Generate d Referral 01/01/2022 01/01/2023 1 1 [facility] ([facility]ative)No reason for referral information availableWUniversity [facility]als [facility] Work Phone: Reason for visit Narrative* Outpatient Procedure (Routine) - Closed Specialty Diagnoses / Procedures Referred By Georges rodriguez Referred To Contact ENDOSCOPY Diagnoses Duodenal nodule Dilated bile duct Procedures EGD - THERAPEUTIC, EUS, OR TUBE INTERVENTIONS EGD INTRMURAL US NEEDLE ASPIRATE/BIOPSY ESOPHAGS Dwayne Leung MD [address] [place] [address] [facility] [address] [place] [phone] Referral ID Status Reason Start Date Expiration Date V isits Requested Visits Authorized [id number] Closed Auto-Generate d Referral 01/01/2022 01/01/2023 1 1 [facility] Advance Directives No Advanced Directives Records FoundDocuments on File Type Date Recorded 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 No June 25, 2024 10:34am Advance Directive Response Recorded Date/ Time Do you have a Healthcare Power of Tow Driver? No November 04, 2024 6:22am Advance Directive Response Recorded Date/ Time Do you have a Healthcare Power of Tow Driver? No November 04, 2024 6:22am Do you have a Healthcare Power of Tow Driver? No November 16, 2024 5:32pm Chief Complaint [...] 3pm Chief Complaint Admit Date SCREENING [place] June 15, 2024 2:0 3pm BACK PAIN [...] or prosecute any alcohol or drug abuse patient.[facility] the event this information is protected by the Federal Confidentiality of Alcohol and Drug Abuse Patient Records regulations: The Federal rules restrict any use of the information to criminally investigate or prosecute any alcohol or drug abuse patient.[facility] the event this information is protected by the Federal Confidentiality of Alcohol and Drug Abuse Patient Records regulations: The Federal rules restrict any use of the information to criminally investigate or prosecute any alcohol or drug abuse patient.[facility] the event this information is protected by the Federal Confidentiality of Alcohol and Drug Abuse Patient Records regulations: The Federal rules restrict any use of the information to criminally investigate or prosecute any alcohol or drug abuse patient.[facility] Hospital[facility] the event this information is protected by the Federal Confidentiality of Alcohol and Drug Abuse Patient Records regulations: The Federal rules restrict any use of the information to criminally investigate or prosecute any alcohol or drug abuse patient.[facility] the event this information is protected by the Federal Confidentiality of Alcohol and Drug Abuse Patient Records regulations: The Federal rules restrict any use of the information to criminally investigate or prosecute any alcohol or drug abuse patient.[facility] Hospital[facility] the event this information is protected by the Federal Confidentiality of Alcohol and Drug Abuse Patient Records regulations: The Federal rules restrict any use of the information to criminally investigate or prosecute any alcohol or drug abuse patient.[facility] Hospital[facility] the event this information is protected by the Federal Confidentiality of Alcohol and Drug Abuse Patient Records regulations: The Federal rules restrict any use of the information to criminally investigate or prosecute any alcohol or drug abuse patient.[facility] Reason for Visit (unrecogniz ed section and content) Reason Comments Mass Reason Comments Appointment CONSULT TO GI Reason Comments duodenal nodule Reason Comments Appointment Care Teams (unrecognized sec tion and content) Picker Operator Relationship Specialty Start Date End Date Guille Conde MD [address] [place], [place] [id number] PCP - General Family Practice 09/18/14 Dwayne Gibson [address] [place], [place] [id number] Referring Family Practice 01/03/21 Brian Zaldivar MD [address] [place] [address] Referring Gastroenterology 01/03/21 Zion Patel MD [address] [facility] [place] [id number] Consulting General Surgery 07/15/21 Picker Operator Relationship Specialty Start Date End Date Guille Conde MD [address] [place] [address] PCP - General Family Practice 09/18/14 Dwayne Gibson [address] [facility] [address] [place] [address] Referring Family Practice 01/03/21 Brian Zaldivar MD [address] [place] [address] Referring Gastroenterology 01/03/21 Zion Patel MD [address] [facility], [place] [id number] Consulting General Surgery 07/15/21 Picker Operator Relationship Specialty Start Date End Date Guille Conde MD [address] [place] [address] PCP - General Family Medicine 09/18/14 Dwayne Gibson [address] [facility] [address] [place] [address] Referring Family Medicine 01/03/21 Brian Zaldivar MD [address] [place] [address] Referring Gastroenterology 01/03/21 Zion Patel MD [address] [place] [address] Consulting General Surgery 07/15/21 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 Operator Relationship Specialty Start Date End Date Guille Conde MD [address] [place] [address] PCP - General Family Medicine 09/18/14 Dwayne Gibson [address] [facility] [address] [place] [address] Referring Family Medicine 01/03/21 Brian Zaldivar MD [address] [place] [address] Referring Gastroenterology 01/03/21 Zion Patel MD [address] [facility] [address] Consulting General Surgery 07/15/21 Picker Operator Relationship Specialty Start Date End Date Guille Conde MD [address] [place] [address] PCP - General Family Medicine 09/18/14 Dwayne Gibson [address] [facility] [address] [place] [address] Referring Family Medicine 01/03/21 Brian Zaldivar MD [address] [place] [address] Referring Gastroenterology 01/03/21 Zion Patel MD [address] [facility] [address] Consulting General Surgery 07/15/21 Picker Operator Relationship Specialty Start Date End Date Guille Conde MD [address] [place] [address] PCP - General Family Medicine 09/18/14 Dwayne Gibson [address] [facility] [address] [place] [address] Referring Family Medicine 01/03/21 Brian Zaldivar MD [address] [place] [address] Referring Gastroenterology 01/03/21 Zion Patel MD [address] [place] [address] Consulting General Surgery 07/15/21 Picker Operator Relationship Specialty Start Date End Date Guille Conde MD [address] [place], [place] [id number] PCP - General Family Medicine 09/18/14 Dwayne Gibson [address] [facility] [address] [place] [address] Referring Family Medicine 01/03/21 Brian Zaldivar MD [address] [place] [address] Referring Gastroenterology 01/03/21 Zion Patel MD [address] [place], [place] [id number] Consulting General Surgery 07/15/21 Team Status: Active [...] Primary Care Provider, Attend ing Provider Active Picker Operator Relationship Specialty Start Date End Date Dwayne Gibson MD [address] [facility] [address] [place] [address] Referring Family Medicine 01/03/21 Brian Zaldivar MD [address] [place] [address] Referring Gastroenterology 01/03/21 Zion Patel MD [address] [place] [address] [facility] General Surgery 07/15/21 Team Status: Inactive Member [...] and content) DATE CREATED AUTHOR 08/08/2021 [facility] DATE CREATED AUTHOR AUTHOR'S ORGANIZ ATION 01/02/2023 [facility] DATE CREATED AUTHOR AUTHOR'S ORGANIZ ATION 11/16/2024 [facility] DATE CREATED AUTHOR AUTHOR'S ORGANIZ ATION 01/22/2025 [facility] FOR RECORDS PERTAINING TO PATIENTS WHO [...] BE BASED ON THE PRIMARY CLINICAL RECORDS. [facility] [employer] [facility]. provides no warranty or guarantee of the accuracy or completeness of information in this document.
== END | disposition home or self-care (01) ==
LOC: CT 16:57
PROVIDERS: PCP Family Medicine; Referring Provider Family Medicine; Visit Provider Family Medicine
DX: R91.1 Solitary pulmonary nodule (principal)
CPT/HCPCS: 71250

== ENCOUNTER → 2025-03-21 | Outpatient (CLI) | payer MEDICARE, SELFPAY | END | disposition home or self-care (01) | LOC: ONC 10:48 | PROVIDERS: PCP Family Medicine; Referring Provider Family Medicine; Visit Provider Family Medicine | DX: R91.1 Solitary pulmonary nodule (principal) | CPT/HCPCS: 78815; A9552 ==